=== PATIENT | female | born 1930 | race Caucasian/White ===

== ENCOUNTER → 2016-10-18 | Outpatient (CLI) | payer MEDICARE, OTHER ==
[~2016-10-18] MED LIST: ASPI81TA28 PO; ATV/1 PO; CALC-388 PO; CHOL100027 PO; EFFSR75 PO; EPP3/2 IM; LOSA1TAB PO; MULT-506 PO; OMEG10007 PO
--- NOTE | 2016-10-18 14:53 | MAMMOGRAPHY REPORT ---
UNILATERAL RIGHT DIGITAL SCREENING MAMMOGRAM TOMOSYNTHESIS WITH CAD: 10/18/2016 CLINICAL HISTORY: Asymptomatic. Personal history of breast cancer. TECHNIQUE: Right breast tomosynthesis in addition to standard 2D mammography was performed. Current jose eduardo horta was also evaluated with a Computer Aided Detection (CAD) system. COMPARISON: Comparison is made to exams dated: 10/15/2015 mammogram, 10/13/2014 mammogram, 10/09/2013 m ammogram, 10/08/2012 mammogram, 10/06/2011 mammogram, and 10/05/2010 mammogram - [facility] BREAST COMPOSITION: The tissue of the right breast is heterogeneously dense, which may obscure small masses. FINDINGS: A linear scar marker overlies the lateral right breast. There are moderate vascular calcif ications and scattered benign-appearing microcalcifications. No suspicious mass, unexpected focal a rchitectural distortion or cluster of suspicious microcalcifications is seen. IMPRESSION: ACR BI-RADS CATEGORY 1: NEGATIVE There is no mammographic evidence of malignancy. A 1 year screening mammogram is recommended. The pa tient will receive written notification of the results. Approximately 10% of breast cancers are not detected with mammography. A negative mammographic report should not delay biopsy if a clinically suggestive mass is present. Jaycee Valdivia M.D. ay/:10/18/2016 09:21:45 After School Teacher: Jaz LABOY(R)(M), [facility] letter sent: Normal 1/2 BI-RADS Code: ACR BI-RADS Category 1: Negative
== END | disposition home or self-care (01) ==
LOC: C.MAMM 08:59
PROVIDERS: ATTEND Family Medicine
DX: Z12.31 Encounter for screening mammogram for malignant neoplasm of breast (principal); Z85.3 Personal history of malignant neoplasm of breast

== ENCOUNTER → 2016-11-15 | Outpatient (CLI) | payer MEDICARE ==
--- NOTE | 2016-11-15 13:27 | DIAGNOSTIC IMAGING REPORT ---
VIDEO SWALLOW HISTORY: Aspiration sensation R13.10 TECHNIQUE: Video fluoroscopic evaluation of swallowing was performed in the AP and lateral projections by the speech pathology staff. The patient is fed nectar-thick and thin liquid barium, a barium coated wafer, and barium pudding. FLUOROSCOPY TIME: 1.7 minutes. NUMBER OF FLUOROSCOPY IMAGES: COMPARISON STUDY: None. FINDINGS: There is normal hyoid excursion and epiglottic deflection. No significant penetration or aspiration identified. Swallowing function is within normal limits. Degenerative changes are present within the cervical spine. IMPRESSION: 1. No aspiration identified. 2. Please see the speech pathologist report for detailed findings and recommendations. Electronically signed by: Boby Velasquez M.D. 11/15/2016 1:26 PM Dictated Date/Time: 11/15/2016 1:24 PM
--- NOTE | 2016-11-16 15:23 | SWALLOWING EVALUATION ---
REFERRING SPEECH PATHOLOGIST: n/a HISTORY: This 86 year-old female was referred for a VFSS at [facility] in order to rule out aspiration and address c/o occasional solid food dysphagia resulting in severe coughing spells. The patient has a PMH significant for depression, anxiety, prolapsed bladder, breast CA s/p mastectomy, osteoarthritis and osteoporosis. She denies h/o GERD, but has c/o dysphonia, frequent throat-clearing and excessive mucous production. Currently the patient's diet level is regular. She reports a recent unintentional weight loss of 5# and that her PCP is concerned about her low weight. PROCEDURE: The patient was seen in the Radiology Department of [facility] for the VFSS. Cursory examination of the oral cavity revealed adequate dentition. Movement of the articulators was WNL. The patient was seated on a stool and was viewed in both the Anterior-Posterior (A-P) and Lateral planes. Volitional phonation exercises completed in the A-P plane revealed bilateral vocal fold movement and vocal intensity within functional limits. In the lateral plane, the patient was given the following boluses: 1 tsp. thin liquid barium x 2, single swallow thin liquid barium self-presented from a cup, sequential swallows of thin liquid barium self-presented from a cup, 1 tsp. nectar-thick liquid barium, single swallow nectar-thick liquid barium self-presented from a cup, 1 tsp. barium pudding, and 1 club cracker with barium pudding. The patient was then repositioned into the A-P plane and given 1 tsp. barium pudding. RESULTS: Oral Stage: Labial seal, lingual control, bolus preparation and bolus transport were complete. Trace residue lined oral structures after the swallow. The pharyngeal swallow was initiated when the bolus head was at the posterior angle of the ramus. The oral stage of the swallow was WNL. Pharyngeal Stage: Soft palate elevation, laryngeal elevation, hyoid excursion, laryngeal vestibular closure, and pharyngeal contraction were complete. Pharyngeal stripping wave was diminished. There was partial distention and duration of PES opening d/t cricopharyngeal impression on the esophageal lumen and the presence of osteophytes making impression on the cervical esophagus. There was no obstruction of bolus flow. Tongue base retraction was complete. There was trace pharyngeal residue after the swallow that cleared with a dry swallow produced independently by the patient. There was no penetration or aspiration during the study. There was evidence of dense calcifications with a grape-like appearance at the level of the pyriform sinuses. The sinuses did not fill with barium during the study as would be expected. The radiologist (Dr. Elizabeth) was consulted and he believed it to be thyroid calcifications and stated that was also evident in the AP plane bilaterally. Esophageal Stage: A pudding bolus transited the esophagus without impedance. SUMMARY/RECOMMENDATIONS: This patient presents with normal oral-pharyngeal swallow function. The following is recommended: 1. Regular as tolerated 2. Consider f/u with otolaryngology re: dysphonia, throat-clearing, and possible dense thyroid calcifications; r/o LPR A summary of the results and recommendations was discussed with the patient immediately following the study. She verbalized understanding and is anticipating f/u with the referring physician. Thank you for referral of this patient. Please contact me at if any additional information is needed.
== END | disposition home or self-care (01) ==
LOC: C.RAD 10:53
PROVIDERS: ATTEND Family Medicine
DX: R13.10 Dysphagia, unspecified (principal)

== ENCOUNTER → 2017-03-17 | Outpatient (CLI) | payer MEDICARE ==
[~2017-03-17] MED LIST changes: +OPTIRAY 320 IV PRN
[2017-03-17 11:41] LABS: BLOOD UREA NITROGEN 18 mg/dl (7-18); CREATININE 0.56 mg/dl (0.60-1.20)
--- NOTE | 2017-03-17 11:53 | DIAGNOSTIC IMAGING REPORT ---
L VENOUS DOPP LOWER EXT UNILAT CLINICAL HISTORY: R60.0 pain. Edema. TECHNIQUE: Venous Doppler COMPARISON STUDY: None FINDINGS: Normal study IMPRESSION: Normal venous Doppler left leg. The above report was generated using voice recognition software. It may contain grammatical, syntax or spelling errors. Electronically signed by: Bear Mackay M.D. 03/17/2017 11:52 AM Dictated Date/Time: 03/17/2017 11:52 AM
--- NOTE | 2017-03-17 12:25 | DIAGNOSTIC IMAGING REPORT ---
CT ANGIOGRAM OF THE CHEST CLINICAL HISTORY: Dyspnea on exertion. Shortness of breath. COMPARISON STUDY: Chest x-ray dated 05/30/2012 TECHNIQUE: Following the IV administration of 89 mL of Optiray-320, CT angiogram of the thorax was performed from the thoracic inlet to the lung bases utilizing the pulmonary embolus protocol. Images are reviewed in the axial, sagittal, and coronal planes. IV contrast was administered without complication. MIP imaging was performed. A dose lowering technique was utilized adhering to the principles of ALARA. CT DOSE: 214.90 mGy.cm FINDINGS: No pathologically enlarged axillary mediastinal or hilar lymph nodes were visualized. There was no evidence of thoracic aortic dilatation. There were no pulmonary artery filling defects to indicate acute pulmonary embolism. No pleural effusions are visualized. There are mild dependent atelectatic changes. There are few scattered calcified granulomas present.. There is a mixed solid and groundglass right upper lobe pulmonary opacity measuring 25 mm in diameter. IMPRESSION: 1. No evidence of acute pulmonary embolism 2. Mixed solid and groundglass right upper lobe 25 mm opacity. This could either be inflammatory or neoplastic. Pulmonary referral, and/or short-term CT follow-up subsequent antibiotic therapy is recommended. Electronically signed by: Boby Velasquez M.D. 03/17/2017 12:24 PM Dictated Date/Time: 03/17/2017 12:18 PM
== END | disposition home or self-care (01) ==
LOC: C.ULTR 10:42
PROVIDERS: ATTEND Family Medicine
DX: R06.09 Other forms of dyspnea (principal); R60.0 Localized edema; R91.8 Other nonspecific abnormal finding of lung field

== ENCOUNTER → 2017-04-20 | Outpatient (CLI) | payer MEDICARE ==
[~2017-04-20] MED LIST changes: -OPTIRAY 320 IV PRN
--- NOTE | 2017-04-20 10:44 | DIAGNOSTIC IMAGING REPORT ---
(CHEST) THORAX WITHOUT CT DOSE: 258.63 mGy.cm HISTORY: Lung nodule ABNORMAL CHEST CT FROM 03/16 TECHNIQUE: Multiaxial CT images of the chest were performed without contrast. A dose lowering technique was utilized adhering to the principles of ALARA. COMPARISON: 03/17/2017 FINDINGS: Patient continues to have a 2.5 cm groundglass nodule right upper lung. In addition, there is a 6 mm groundglass nodule right lower lobe transaxial image 149. This is identified on the prior study and does not represent an interval finding. There is a nodular density right posterior costophrenic angle associated with mild atelectatic change. This is similar. Left lung is generally clear. There are several small mediastinal nodes unchanged from the prior study. No bulky adenopathy is appreciated. IMPRESSION: 1. Several groundglass nodular densities of the right lung which are identified and are unchanged compared to the prior exam. 2. Given the lack of interval change, pulmonary consult or PET/CT of the chest is suggested. The above report was generated using voice recognition software. It may contain grammatical, syntax or spelling errors. Electronically signed by: Bear Mackay M.D. 04/20/2017 10:42 AM Dictated Date/Time: 04/20/2017 10:33 AM
== END | disposition home or self-care (01) ==
LOC: C.CTS 10:05
PROVIDERS: ATTEND Family Medicine
DX: R93.8 Abnormal findings on diagnostic imaging of other specified body structures (principal)

== ENCOUNTER → 2017-09-28 | Outpatient (CLI) | payer MEDICARE ==
--- NOTE | 2017-09-28 09:46 | DIAGNOSTIC IMAGING REPORT ---
(CHEST) THORAX WITHOUT CT DOSE: 195.63 mGycm HISTORY: Dyspnea PULMONARY NODULES TECHNIQUE: Multiaxial CT images of the chest were performed without contrast. A dose lowering technique was utilized adhering to the principles of ALARA. COMPARISON: 04/20/2017 FINDINGS: No change compared to the prior study. The groundglass densities of the right hemithorax are unchanged. There is no significant mediastinal or hilar adenopathy within limitations of an unenhanced scan. Stable atherosclerotic change and ectasia thoracic aorta. No focal infiltrative process. Limited evaluation the upper abdomen is unremarkable. IMPRESSION: 1. Several groundglass nodular densities right hemithorax unchanged. 2. Main this study is unremarkable post left mastectomy. The above report was generated using voice recognition software. It may contain grammatical, syntax or spelling errors. Electronically signed by: Bear Mackay M.D. 09/28/2017 9:45 AM Dictated Date/Time: 09/28/2017 9:35 AM
== END | disposition home or self-care (01) ==
LOC: C.CTS 09:18
PROVIDERS: ATTEND Physician Assistant
DX: R91.8 Other nonspecific abnormal finding of lung field (principal)

== ENCOUNTER → 2017-10-19 | Outpatient (CLI) | payer MEDICARE ==
--- NOTE | 2017-10-19 15:09 | MAMMOGRAPHY REPORT ---
UNILATERAL RIGHT DIGITAL SCREENING MAMMOGRAM TOMOSYNTHESIS WITH CAD: 10/19/2017 CLINICAL HISTORY: Asymptomatic. Personal history of breast cancer. TECHNIQUE: Breast tomosynthesis in addition to standard 2D mammography was performed. Current study w as also evaluated with a Computer Aided Detection (CAD) system. COMPARISON: Comparison is made to exams dated: 10/18/2016 mammogram, 10/15/2015 mammogram, 10/13/2014 m ammogram, 10/09/2013 mammogram, 10/08/2012 mammogram, and 10/06/2011 mammogram - [facility]. BREAST COMPOSITION: The tissue of right breast is heterogeneously dense, which may obscure small mass es. FINDINGS: There are no suspicious masses, calcifications, or areas of architectural distortion noted in the rig ht breast. There has been no significant interval change compared to prior exams. Scattered benign- appearing calcifications are stable. A linear scar marker overlies the right lateral breast. IMPRESSION: ACR BI-RADS CATEGORY 2: BENIGN There is no mammographic evidence of malignancy. A 1 year screening mammogram is recommended.( 019) The patient will receive written notification of the results. Some breast cancers are not detected with mammography. A negative mammographic report should not waylon y biopsy if a clinically suggestive mass is present. Louisa Lloyd M.D. /:10/19/2017 12:25:34 Ultrasound Technician: RT Danitza(Ariella)(Deedee), [facility] letter sent: Normal 1/2 BI-RADS Code: ACR BI-RADS Category 2: Benign
== END | disposition home or self-care (01) ==
LOC: C.MAMM 08:54
PROVIDERS: ATTEND Family Medicine
DX: Z12.31 Encounter for screening mammogram for malignant neoplasm of breast (principal)

== ENCOUNTER 2021-04-30 09:29 | Inpatient (IN) ==
[2021-04-30 10:30] LABS: Basophils # (auto) 0.02 K/uL (0-0.2); Basophils % (auto) 0.5 %; Eosinophils # (auto) 0.07 K/uL (0-0.5); Eosinophils % (auto) 1.8 %; Hematocrit (blood only) 35.8 % (37-47); Hemoglobin 12.2 g/dL (12.0-16.0); Immature Granulocytes # (auto) 0.01 K/uL (0.00-0.02); Immature Granulocytes % (auto) 0.3 %; Lymphocytes # (auto) 0.93 K/uL (1.2-3.4); Lymphocytes % (auto) 23.3 %; Mean Corpuscular Hemoglobin 30.1 pg (25-34); Mean Corpuscular Hgb Conc 34.1 g/dL (32-36); Mean Corpuscular Volume 88.4 fL (80-100); Mean Platelet Volume 10.3 fL (7.4-10.4); Monocytes # (auto) 0.46 K/uL (0.11-0.59); Monocytes % (auto) 11.5 %; Neutrophils # (auto) 2.51 K/uL (1.4-6.5); Neutrophils % (auto) 62.6 %; Platelet Count 206 K/uL (130-400); RDW Coefficient of Variation 14.3 % (11.5-14.5); RDW Standard Deviation 46.5 fL (36.4-46.3); Red Blood Count 4.05 M/uL (4.2-5.4)
[2021-04-30 10:39] LABS: INR 1.1 (0.9-1.1); Prothrombin Time 11.4 Seconds (9.0-12.0)
--- NOTE | 2021-04-30 10:47 | CT Scan Report ---
CT OF THE HEAD WITHOUT CONTRAST CLINICAL HISTORY: Altered mental status. COMPARISON STUDY: Head CT September 08, 2020. CT DOSE: 537.48 mGy.cm TECHNIQUE: Helical axial images of the head were obtained without IV contrast. Automated exposure con trol was utilized for the study. A dose lowering technique was utilized adhering to the principles o f ALARA. FINDINGS: There is a small 4 mm hyperdense focus within the left parietal lobe on axial image 19 of 2 8. This is of questionable significance. Ventricular system is unremarkable. Basal cisterns are paten t. There are no extra axial collections. White matter hypodensity suggests small vessel disease. Ther e is a 1 cm hypodensity within left basal ganglia on axial image 14 of 20 which is new since prior ex am. There may be an additional old left basal ganglia infarct. There are no significant calvarial abn ormalities. Visualized portions of the sinuses and mastoid air cells are clear. IMPRESSION: 1. Small 4 mm hyperdense focus within the left parietal lobe. This is most likely artifactual however a punctate focus of hemorrhage cannot be completely excluded. 2. 1 cm hypodensity within left basal ganglia. This suggests an age indeterminate infarct, new since CT of September 08, 2020. ACT 112: Negative or not required by law. Electronically signed by: Kemal Elizabeth M.D. 04/30/2021 10:46 AM
[2021-04-30 10:49] LABS: Appearance Urine Clear (Clear); Bacteria Urine Automated 2+ (Negative); Bilirubin Urine Negative (Negative); Blood Urine Negative (Negative); Color Urine Yellow; Glucose Urine UA Negative (Negative); Ketones Urine Negative (Negative); Leukocyte Esterase Urine Negative (Negative); Nitrite Urine Positive (Negative); Protein Urine Negative (Negative); RBC Urine Automated 0-4 /hpf (0-4); Urobilinogen Urine Negative (Negative)
[2021-04-30 10:53] LABS: Alanine Aminotransferase 11 U/L (7-52); Albumin Globulin Ratio 1.9 (0.9-2); Albumin Level 3.9 gm/dl (3.4-5.0); Alkaline Phosphatase 42 U/L (34-104); Anion Gap 4 (3-11); Aspartate Aminotransferase 20 U/L (13-39); BUN Creatinine Ratio 27.9 (10-20); Bilirubin,Total 0.6 mg/dl (0.2-1.0); Blood Urea Nitrogen 17 mg/dl (6-23); Calcium 8.8 mg/dl (8.5-10.1); Carbon Dioxide 29 mmol/L (21-32); Chloride 97 mmol/L (98-107); Est GFR (African American) 93.8 ml/min; Est GFR (Non-African American) 80.9 ml/min; Globulin 2.1 gm/dl (2.5-4.0); Glucose 80 mg/dl (70-99(Fasting)); Lipase 37 U/L (11-82); Magnesium 1.9 mg/dl (1.7-2.4); Phosphorus 3.3 mg/dl (2.5-4.9); Sodium 130 mmol/L (136-145); Troponin I 0.03 ng/ml (0-0.04)
--- NOTE | 2021-04-30 10:58 | XRay Report ---
XR chest 1V portable CLINICAL HISTORY: Atypical chest pain TECHNIQUE: Single frontal radiograph of the chest was obtained. Comparison: Comparison is made to chest one view 07/19/2008 FINDINGS: No lines and tubes are seen. Calcified aortic knob is seen. Opacities are seen at the right greater t phillips left upper lungs. No evidence of pleural effusion or pneumothorax. IMPRESSION: Right greater than left upper lung opacity may represent atelectasis or scarring, less likely aspirat ion or pneumonia. ACT 112: Negative or not required by law. Electronically signed by: Rodríguez Villalta M.D. 04/30/2021 10:57 AM
[2021-04-30 11:32] LABS: Amphetamines+Metham, Urine Neg (Neg); Barbiturates, Urine Neg (Neg); Benzodiazepine, Urine Neg (Neg); Cocaine, Urine Neg (Neg); MDMA (Ecstacy), Urine Neg (Neg); Methadone, Urine Neg (Neg); Opiate, Urine Neg (Neg); Phencyclidine, Urine Neg (Neg)
--- NOTE | 2021-04-30 14:16 | CT Scan Report ---
CT head/brain wo con at 1:54 PM CLINICAL HISTORY: f/u ? bleed COMPARISON STUDY: 04/30/2021 at 10:[address] DOSE: 1151.75 mGy.cm TECHNIQUE: Standard CT of the Brain was performed without IV contrast. A dose lowering technique was utilized adhering to the principles of ALARA. FINDINGS: Compared to the previous examination, a very small hyperdense focus is again seen within the left par ietal lobe measuring 3 mm on the current study and essentially unchanged. The persistence of this fin ding does suggest a very small punctate hemorrhage. No other evidence suggestive of hemorrhage is see n. 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 There is mild cerebral cortica l atrophy and decreased attenuation in the periventricular white matter representing remote small ves angelina disease. The remainder of the study is unchanged. IMPRESSION: 1. Compared to the previous examination, there is a persistent small focus of hyperdensity within the left parietal lobe. Its persistence is suspicious for a small punctate hemorrhage rather than artifa ct. No other evidence for hemorrhage is seen. 2. 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 ACT 112: Negative or not required by law. Electronically signed by: Josse Dior M.D. 04/30/2021 2:15 PM
[2021-04-30] MEDS: SODIUM CHLORIDE 0.9% 1000ML 1,000 ML IV SCH (15:54)
--- NOTE | 2021-04-30 16:04 | History & Physical Report ---
Date of Service April 30, 2021 Assessment & Plan (1) Intentional overdose: Plan: Intentional drug overdose Suicidal attempt Suspected to have consumed about 40 tablets of Lorazepam Drug Screen negative: Likely falsely negative secondary to poor cross-reactivity of lorazepam with Assay Contacted poison control Poison control recommends conservative management No antibiotic needed given use of benzodiazepines for many years Started on IV fluids Supplemental oxygen as needed One-on-one observation Psychiatry consulted NPO for now Obtain ABG Hyponatremia Likely secondary to poor oral intake Sodium 130 Start on IV fluids Monitor sodium levels Suspected UTI Start on Rocephin Urine culture pending Suspected Intracranial hemorrhage Age-indeterminate lacunar infarct of the basal ganglia -CT head showed small focus of hyperdensity within the left parietal lobe suspicious for small punctate hemorrhage. Also noted Lackner infarct in the basal ganglia on the left. --Patient's son, granddaughter believed that patient with not want any invasive intervention and would not want to be transferred to tertiary care center Family also confirmed that patient would wanted to be DNR even prior to recent events Family agrees with conservative management for now Neurology consulted Neurochecks requested Hold aspirin Avoid anticoagulants Will not give ER physician discussed with neurologist on-call at [facility] Dr. Almendarez who believes that CT head findings are incidental and would not explain the degree of somnolence. Also recommended no intervention warranted currently. Fall precautions PT/OT when appropriate Anxiety Depression Hold oral medications for now Psychiatry consulted H/O breast cancer S/P mastectomy H/O adenocarcinoma of lung Radiation pneumonitis as per records H/O PE Asthma/COPD Resume home medications as able DVT Px: SCDs Code Status DNI/DNR History of Present Illness Chief Complaint: Intentional Overdose Primary Care Provider: Bear Rodriguez MD Patient is an 89-year-old female with history of anxiety, depression, dyslipidemia, rosacea, H/O breast cancer S/P left mastectomy, H/O PE currently not on any anticoagulation, asthma, GERD, lumbar spinal stenosis, neuropathy, Adenocarcinoma of lung, Radiation Pneumonitis and other medical problems was brought in by family for evaluation of a suspected suicidal attempt. Patient currently is somnolent and is unable to provide any history. Most of the history is obtained from patient's son at bedside, ER physician and old records. Patient lives by herself and her family lives near by her. Patient was found unconscious by family and thought to have consumed about 40 tablets of lorazepam in an attempt to commit suicide. Patient's Son informs that, she has been depressed since she lost her 2 months ago. She visited her PCP 2 days ago and expressed that she has not been able to cry and was not sure if she grieved. She has some degree of anxiety and has been on lorazepam 1 mg twice a day for many years. She also takes venlafaxine 75 mg daily. She reported having poor sleep and has not been able to do anything with her friends lately. Patient son informed that she attempted a suicidal attempt in the past as well. Patient is somnolent but awakes to painful stimulus and opens eyes. She was hypoxic in 80s and was placed on 2 L supplemental oxygen while in ED. Son believes that she took lorazepam about 1:30 AM this morning. She also wrote a letter stating that she can could not take it anymore. Allergies Allergy/AdvReac Type Severity Reaction Status Date / Time bee venom protein (honey bee) Allergy Severe ANAPHYLAXIS Verified 10/01/20 10:40 Home Medications Medication Instructions Recorded Confirmed Type calcium polycarbophil 625 mg 1,250 mg PO DAILY 03/07/18 04/30/21 History tablet (Fiber Laxative (calcium polycarbophil)) lorazepam 1 mg tablet 1 mg PO BID 03/07/18 04/30/21 History losartan 25 mg tablet 25 mg PO QAM 03/07/18 04/30/21 History venlafaxine 75 mg capsule,extended 75 mg PO BID 03/07/18 04/30/21 History release 24 hr (Effexor XR) metronidazole 1 % topical gel 1 applic TOP DAILY 05/22/19 04/30/21 History umeclidinium 62.5 mcg-vilanterol 1 inh INHALATION DAILY #60 ea 09/01/20 04/30/21 Rx 25 mcg/actuation powdr for inhalation (Anoro Ellipta) aspirin 81 mg tablet,delayed 81 mg PO DAILY 04/30/21 04/30/21 History release calcium carbonate 600 mg-vitamin 1 tab PO UD 04/30/21 04/30/21 History D3 5 mcg (200 unit) tablet (Calcium 600 + D(3)) fluticasone propionate 50 1 spray INTRANASAL Q12H 04/30/21 04/30/21 History mcg/actuation nasal spray,suspension loratadine 10 mg tablet 10 mg PO DAILY 04/30/21 04/30/21 History melatonin 5 mg tablet 5 mg PO HS 04/30/21 04/30/21 History montelukast 10 mg tablet 10 mg PO HS 04/30/21 04/30/21 History omega [id number]-nkx-ebj-fish oil 1,000 mg 1 cap PO BID 04/30/21 04/30/21 History (120 mg-180 mg) capsule (Fish Oil) omeprazole 20 mg capsule,delayed 20 mg PO DAILY 04/30/21 04/30/21 History release tiotropium 2.5 mcg-olodaterol 2.5 2 puff INHALATION QAM 04/30/21 04/30/21 History mcg/actuation mist for inhalation (Stiolto Respimat) triamcinolone acetonide 0.1 % 1 applic TOPICAL BID 04/30/21 04/30/21 History topical cream Past Med/Surg History Medical History Abnormal CT of the chest Anxiety Asthma USING RESCUE INHALER FREQUENTLY/DAILY Asthma-COPD overlap syndrome Cancer BREAST CANCER-LEFT MASTECTOMY Chronic obstructive pulmonary disease Deep vein thrombosis 15 YEARS AGO S/P LEG SURGERY Dysphagia HX ESOPHAGEAL STRETCHING GERD (gastroesophageal reflux disease) History of pulmonary embolism Hypertension Osteoarthritis Prolapsed bladder Pulmonary nodule, right Rectal bleeding Surgical History History of cataract surgery RT/LEFT History of colonoscopy History of esophagogastroduodenoscopy (EGD) History of mastectomy LEFT (NO BP/LAB DRAWS) History of tonsillectomy History of tooth extraction History of total hysterectomy with bilateral salpingo-oophorectomy (BSO) History of total knee replacement LEFT/RT Family History Other No family history of adverse response to anesthesia Social History Smoking Status: Never smoker Second Hand Exposure: Yes; Hx Alcohol Use: No Hx Substance Use: No Preferred Language: Bol[place]ian Communication Ability: Effective Senior Care Specialist Required: No Beliefs That Will Affect Care: None Current Living Situation: Spouse Feels Safe at Home: Yes Childhood Exposure to Second-Hand Smoke: Yes Dental Care, Regularly: Yes Assistive Devices: Glasses and Hearing Aid - Bilateral Review of Systems Review of Systems: Unobtainable due to reduced consciousness Physical Exam Physical Exam: Physical Exam: Vitals signs as noted above General Appearance:Moderately built and nourished, no apparent distress Head: normocephalic, Atraumatic Eyes: normal inspection Neck: supple, Trachea midline Respiratory/Chest: Normal breath sounds, CTA, No accessory muscle use, S/P Left mastectomy Cardiovascular: S1, S2, No murmur Abdomen/GI:Soft, Non tender, Bowel sounds present Extremities/Musculoskeletal:normal inspection, no edema Neurologic/Psych: Somnolent, unable to perform complete neurological exam. Skin: normal color, warm Results & Data Results & Data ([facility]) Vital Signs (Past 12 Hours) Vital Signs Temp Pulse Pulse Resp BP BP Pulse Ox 04/30/21 15:00 82 16 113/64 95 04/30/21 14:30 80 18 140/77 92 04/30/21 13:30 81 15 142/66 H 96 04/30/21 13:00 74 13 133/64 98 04/30/21 12:30 78 12 139/80 98 04/30/21 12:00 76 17 120/75 95 04/30/21 11:31 75 12 137/73 100 04/30/21 11:00 77 12 146/105 H 100 04/30/21 10:04 36.5 C 83 20 123/83 98 04/30/21 10:00 77 17 138/80 100 04/30/21 09:59 71 16 94 Laboratory Results Short CBC 04/30/21 Range/Units 10:15 WBC 4.00 L (4.8-10.8) K/uL Hgb 12.2 (12.0-16.0) g/dL Hct 35.8 L (37-47) % Plt Count 206 (130-400) K/uL BMP 04/30/21 10:15 Sodium 130 L Potassium 4.0 Chloride 97 L Carbon Dioxide 29 BUN 17 Creatinine 0.61 Glucose 80 Calcium 8.8 Cardiac Enzymes 04/30/21 Range/Units 10:15 Troponin I 0.03 (0-0.04) ng/ml Liver Function 04/30/21 Range/Units 10:15 Total Bilirubin 0.6 (0.2-1.0) mg/dl AST 20 (13-39) U/L ALT 11 (7-52) U/L Alkaline Phosphatase 42 (34-104) U/L Albumin 3.9 (3.4-5.0) gm/dl Urine 04/30/21 Range/Units 10:20 Urine Color Yellow Urine Appearance Clear (Clear) Urine pH 7.0 (4.5-7.5) Ur Specific [place] 1.010 (1.000-1.030) Urine Protein Negative (Negative) Urine Glucose (UA) Negative (Negative) Diagnostic Findings --CT Head:Small 4 mm hyperdense focus within the left parietal lobe. This is most likely artifactual however a punctate focus of hemorrhage cannot be completely excluded. 1 cm hypodensity within left basal ganglia. This suggests an age indeterminate infarct, new since CT of September 08, 2020. --CXR:Right greater than left upper lung opacity may represent atelectasis or scarring, less likely aspiration or pneumonia. --Repeat CT Head:Compared to the previous examination, there is a persistent small focus of hyperdensity within the left parietal lobe. Its persistence is suspicious for a small punctate hemorrhage rather than artifact. No other evidence for hemorrhage is seen. 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 ECG Additional Comments: EKG: Normal sinus rhythm, nonspecific ST changes, QTC 446.
--- NOTE | 2021-04-30 16:49 | Emergency Department Note ---
Impression & Plan Intentional overdose, Suicide attempt, Abnormal CT scan of head, Somnolence ED Provider Note NAME: NALLELY NOBLE AGE: 89 SEX: F ARRIVES VIA: Ambulance INFORMANT: EMS, Son ED PROVIDER(S): Jani Pinedo MD CHIEF COMPLAINT: Intentional overdose. PLAN: Disposition: Admit MEDICAL DECISION MAKING: The patient is an 89-year-old woman with a past medical history of asthma, COPD lung adenocarcinoma who presents emergency department from home after she was found unresponsive by family with suspicion that she had taken 40 tablets of her Ativan and attempt to kill her self in the setting of no longer wanting to live as her recently per EMS report. Son arrived to the bedside and reports that a note was found with the patient indicated that she no longer wanted to live. Her ativan pill bottle was empty and estimated that a least 40 tablets of her ativan may have been taken. They were able to gather from the patient that she did this around 1am and apparent had dressed herself and made her bed. She was found in the morning by her [id number] who was to take the patient grocery shopping this morning. On arrival the patient is afebrile with stable vital signs. She is somnolent but awakes to painful stimulus, opens eyes and answers with her name when asked. Her GCS is 11. She is hypoxic in the mid 80s but with normal O2 saturation on 2 L nasal cannula. Her respiratory rate is normal. Patient placed on continuous capnography. EKG without overt acute ischemia. CXR with nonspecific findings, likely atelectasis at this time. WBC 4K nonspecific. Hemoglobin and platelets within normal limits. Chemistry without metabolic acidosis. BUN/creatinine> 20 consistent with patient's clinically dry appearance. Electrolytes and LFTs without significant abnormality. Troponin 0.03, within normal limits. Lipase is not elevated. UA with epithelial cells and so will await culture to inform need for treatment. Drug screen was negative however may reflect false negative stable poor cross- reactivity of lorazepam with assay. Covid-19 RNA, NAAT negative. The head demonstrates age indeterminant infarct of the basal ganglia as well as a 4 mm left parietal hypodensity that reflects artifact versus small hemorrhage. A [address] was performed and this area was unchanged and therefore hemorrhage is considered. I did discuss these findings with the patient's son side as well as with the patient's grand daughter who is an ED physician in [place] over the phone. There our discussion they did agree that she would not have wanted any invasive interventions prior to her recent depression and so they feel confident that they would not want the patient transferred to a tertiary care center and acknowledge that if any head bleeding were to worsen that would not want transfer at that point either. They do confirm that the patient would have wanted to be DNR even before the recent events. Regarding intubation they do agree with temporary intubation if indicated for stabilization while awaiting benzodiazepine overdose to metabolize but would not want the patient intubated per if she fails to respond and would not want her intubated if she were to decline for alternate reasons such as ICH. Case was discussed with Angelica ABARCA [facility] who will evaluate the patient for admission. Per admitting team request I also discussed the case with [facility] neurology on-call, Dr. Almendarez. Appreciate recommendations. He does agree that findings on CT head are likely incidental and would not explain the patient's degree of somnolence. Additionally CT findings would not warrant acute intervention. She may follow-up outpatient regarding these findings if this is the patient's/familes interest. Admitting team was updated. Triage Nursing notes reviewed and agree them. Prior medical records reviewed Vital Signs: reviewed and remarkable for hypoxia. Differential diagnosis: Overdose, toxicologic, infection, hypoglycemia, electrolyte abnormalities, cardiac sources, intracerebral event, neurologic, trauma, as well as other pathologies. ER treatment provided: See below. Diagnostics interpreted by me: ECG: NSR, 78 bpm, no ectopy, no overt ST elevation or depression. QTC 446, QRS 96, MT 172. Cardiac Monitoring: An order for continuous cardiac monitoring was placed and demonstrated NSR, 78 bpm, no ectopy. Laboratory studies: See below Imaging studies: See below Consultation(s): Case was discussed with Angelica ABARCA with Dr. Lozano [facility] hospitalist, who will evaluate the patient for admission. [facility] neurology on-call, Dr. Almendarez. HPI: The patient is an 89-year-old woman with a past medical history of asthma, COPD lung adenocarcinoma who presents emergency department from home after she was found unresponsive by family with suspicion that she had taken 40 tablets of her Ativan and attempt to kill her self in the setting of no longer wanting to live as her recently per EMS report. Son arrived to the bedside and reports that a note was found with the patient indicated that she no longer wanted to live. Her ativan pill bottle was empty and estimated that a least 40 tablets of her ativan may have been taken. They were able to gather from the patient that she did this around 1am and apparent had dressed herself and made her bed. She was found in the morning by her [id number]-[id number]-pbo who was to take the patient grocery shopping this morning. ROS: See above HPI for pertinent positives & negatives. A total of 10 systems reviewed and were otherwise negative. VITALS:See Below PHYSICAL EXAMINATION: GENERAL: Somnolent. Alert to mild stimulus and loud voice. GCS 11. In no acute distress. HENT: Normocephalic, atraumatic. Oropharynx unremarkable. EYES: Normal conjunctiva. Sclera non-icteric. NECK: Supple. No nuchal rigidity. FROM. No JVD. RESPIRATORY: Clear to auscultation. CARDIAC: Regular rate, normal rhythm. Extremities warm and well perfused. Pulses equal. ABDOMEN: Soft, non-distended. No tenderness to palpation. No rebound or guarding. No masses. RECTAL: Deferred. MUSCULOSKELETAL: Chest examination reveals no tenderness. The back is symm etrical on inspection without obvious abnormality. There is no CVA tenderness to palpation. No joint edema. LOWER EXTREMITIES: Calves are equal size bilaterally and non-tender. No edema. No discoloration. NEURO: Somnolent. Alert to mild stimulus and loud voice. Says name to request. Mild dysarthria. GCS 11. SKIN: No rash or jaundice noted. ED COURSE: Critical Care: I have personally spent greater than 95 minutes of critical care time in the direct management of this patient. This includes bedside care, interpretation of diagnostic studies, and testing, discussion with consultants, patient, and family members, and other required patient management activities. This 95 minutes is in excess of all separately billable procedures. Jani Pinedo MD Past Med/Surg History Medical History Abnormal CT of the chest Anxiety Asthma USING RESCUE INHALER FREQUENTLY/DAILY Asthma-COPD overlap syndrome Cancer BREAST CANCER-LEFT MASTECTOMY Chronic obstructive pulmonary disease Deep vein thrombosis 15 YEARS AGO S/P LEG SURGERY Dysphagia HX ESOPHAGEAL STRETCHING GERD (gastroesophageal reflux disease) History of pulmonary embolism Hypertension Osteoarthritis Prolapsed bladder Pulmonary nodule, right Rectal bleeding Surgical History History of cataract surgery RT/LEFT History of colonoscopy History of esophagogastroduodenoscopy (EGD) History of mastectomy LEFT (NO BP/LAB DRAWS) History of tonsillectomy History of tooth extraction History of total hysterectomy with bilateral salpingo-oophorectomy (BSO) History of total knee replacement LEFT/RT Family History Other No family history of adverse response to anesthesia Social History Smoking Status: Never smoker Second Hand Exposure: No; Do You Dip or Chew Tobacco: No; Tobacco Cessation Education Requested by Patient: No Hx Alcohol Use: No Hx Substance Use: No Preferred Language: Venezuelan Communication Ability: Effective Loom Inspector Required: No Beliefs That Will Affect Care: None Current Living Situation: Alone Other Information That Helps Us Care for You: No Feels Safe at Home: Yes Safety Concerns: Feels Safe At This Time Childhood Exposure to Second-Hand Smoke: Yes Dental Care, Regularly: Yes Assistive Devices: Glasses and Hearing Aid - Bilateral Assistive Devices Comment: did not5 bring hearing aids with her Allergies Allergies Allergy/AdvReac Type Severity Reaction Status Date / Time bee venom protein (honey bee) Allergy Severe ANAPHYLAXIS Verified 10/01/20 10:40 Home Meds Home Medications Medication Instructions Recorded Confirmed calcium polycarbophil 625 mg 1,250 mg PO DAILY 03/07/18 04/30/21 tablet (Fiber Laxative (calcium polycarbophil)) lorazepam 1 mg tablet 1 mg PO BID 03/07/18 04/30/21 losartan 25 mg tablet 25 mg PO QAM 03/07/18 04/30/21 venlafaxine 75 mg capsule,extended 75 mg PO BID 03/07/18 04/30/21 release 24 hr (Effexor XR) metronidazole 1 % topical gel 1 applic TOP DAILY 05/22/19 04/30/21 aspirin 81 mg tablet,delayed 81 mg PO DAILY 04/30/21 04/30/21 release calcium carbonate 600 mg-vitamin 1 tab PO UD 04/30/21 04/30/21 D3 5 mcg (200 unit) tablet (Calcium 600 + D(3)) fluticasone propionate 50 1 spray INTRANASAL Q12H 04/30/21 04/30/21 mcg/actuation nasal spray,suspension loratadine 10 mg tablet 10 mg PO DAILY 04/30/21 04/30/21 melatonin 5 mg tablet 5 mg PO HS 04/30/21 04/30/21 montelukast 10 mg tablet 10 mg PO HS 04/30/21 04/30/21 omega 3-ezp-yia-fish oil 1,000 mg 1 cap PO BID 04/30/21 04/30/21 (120 mg-180 mg) capsule (Fish Oil) omeprazole 20 mg capsule,delayed 20 mg PO DAILY 04/30/21 04/30/21 release tiotropium 2.5 mcg-olodaterol 2.5 2 puff INHALATION QAM 04/30/21 04/30/21 mcg/actuation mist for inhalation (Stiolto Respimat) triamcinolone acetonide 0.1 % 1 applic TOPICAL BID 04/30/21 04/30/21 topical cream Previous Rx's Medication Instructions Recorded umeclidinium 62.5 mcg-vilanterol 1 inh INHALATION DAILY #60 ea 09/01/20 25 mcg/actuation powdr for inhalation (Anoro Ellipta) Results & Data (ED) Vital Signs Vital Signs - 24 hr 04/30/21 09:59 04/30/21 10:00 04/30/21 10:04 Temperature 36.5 C Temperature Source Oral Pulse Rate 71 77 83 Pulse Rate [Right Finger] Pulse Rate from SpO2 Sensor 77 Pulse Rhythm Regular Regular Pulse Rhythm [Right Finger] Pulse Strength Normal Pulse Strength [Right Finger] Respiratory Rate 16 17 20 Respiratory Effort / Characteristics Non-Labored Spontaneous Respiratory Depth Normal Respiratory Pattern Regular Blood Pressure 138/80 123/83 Blood Pressure [Right Arm] Blood Pressure Mean 99 96 Blood Pressure Mean [Right Arm] Blood Pressure Position Sitting Pulse Oximetry 94 100 98 Oxygen Delivery Method Room Air Room Air Oxygen Flow Rate Sepsis Recent Fever Within 48 Hours No Sepsis New/Unexplained Change in Mental Status N/A Sepsis Action Taken by Nursing No Action Required End-Tidal CO2 04/30/21 11:00 04/30/21 11:31 04/30/21 12:00 Temperature Temperature Source Pulse Rate 77 75 76 Pulse Rate [Right Finger] Pulse Rate from SpO2 Sensor 76 76 76 Pulse Rhythm Pulse Rhythm [Right Finger] Pulse Strength Pulse Strength [Right Finger] Respiratory Rate 12 12 17 Respiratory Effort / Characteristics Respiratory Depth Respiratory Pattern Blood Pressure 146/105 H 137/73 120/75 Blood Pressure [Right Arm] Blood Pressure Mean 118 94 90 Blood Pressure Mean [Right Arm] Blood Pressure Position Pulse Oximetry 100 100 95 Oxygen Delivery Method Nasal Cannula Room Air Oxygen Flow Rate 3 Sepsis Recent Fever Within 48 Hours Sepsis New/Unexplained Change in Mental Status Sepsis Action Taken by Nursing End-Tidal CO2 5 18 21 04/30/21 12:30 04/30/21 13:00 04/30/21 13:30 Temperature Temperature Source Pulse Rate 78 74 81 Pulse Rate [Right Finger] Pulse Rate from SpO2 Sensor 78 75 81 Pulse Rhythm Pulse Rhythm [Right Finger] Pulse Strength Pulse Strength [Right Finger] Respiratory Rate 12 13 15 Respiratory Effort / Characteristics Respiratory Depth Respiratory Pattern Blood Pressure 139/80 133/64 142/66 H Blood Pressure [Right Arm] Blood Pressure Mean 99 87 91 Blood Pressure Mean [Right Arm] Blood Pressure Position Pulse Oximetry 98 98 96 Oxygen Delivery Method Room Air Oxygen Flow Rate Sepsis Recent Fever Within 48 Hours Sepsis New/Unexplained Change in Mental Status Sepsis Action Taken by Nursing End-Tidal CO2 20 30 35 04/30/21 14:30 04/30/21 15:00 Temperature Temperature Source Pulse Rate 80 Pulse Rate [Right Finger] 82 Pulse Rate from SpO2 Sensor 80 Pulse Rhythm Pulse Rhythm [Right Finger] Regular Pulse Strength Pulse Strength [Right Finger] Normal Respiratory Rate 18 16 Respiratory Effort / Characteristics Non-Labored Respiratory Depth Normal Respiratory Pattern Regular Blood Pressure 140/77 Blood Pressure [Right Arm] 113/64 Blood Pressure Mean 98 Blood Pressure Mean [Right Arm] 80 Blood Pressure Position Pulse Oximetry 92 95 Oxygen Delivery Method Room Air Oxygen Flow Rate Sepsis Recent Fever Within 48 Hours Sepsis New/Unexplained Change in Mental Status Sepsis Action Taken by Nursing End-Tidal CO2 Laboratory Data Attestation: I reviewed the patient's lab results. Result diagrams: 04/30/21 10:15 04/30/21 22:18 Lab Results 04/30/21 04/30/21 04/30/21 Range/Units 10:15 10:15 10:15 WBC 4.00 L (4.8-10.8) K/uL RBC 4.05 L (4.2-5.4) M/uL Hgb 12.2 (12.0-16.0) g/dL Hct 35.8 L (37-47) % MCV 88.4 (80-100) fL MCH 30.1 (25-34) pg MCHC 34.1 (32-36) g/dL RDW Std Deviation 46.5 H (36.4-46.3) fL RDW Coeff of [place] 14.3 (11.5-14.5) % Plt Count 206 (130-400) K/uL MPV 10.3 (7.4-10.4) fL Immature Gran % (Auto) 0.3 % Neut % (Auto) 62.6 % Lymph % (Auto) 23.3 % Dup[place] % (Auto) 11.5 % Eos % (Auto) 1.8 % Baso % (Auto) 0.5 % Neut # (Auto) 2.51 (1.4-6.5) K/uL Lymph # (Auto) 0.93 L (1.2-3.4) K/uL Dupage # (Auto) 0.46 (0.11-0.59) K/uL Eos # (Auto) 0.07 (0-0.5) K/uL Baso # (Auto) 0.02 (0-0.2) K/uL Immature Gran # (Auto) 0.01 (0.00-0.02) K/uL PT 11.4 (9.0-12.0) Seconds INR 1.1 (0.9-1.1) Sodium 130 L (136-145) mmol/L Potassium 4.0 (3.5-5.1) mmol/L Chloride 97 L (98-107) mmol/L Carbon Dioxide 29 (21-32) mmol/L Anion Gap 4 (3-11) BUN 17 (6-23) mg/dl Creatinine 0.61 (0.6-1.2) mg/dl Est Cr Clr Drug Dosing Not Reportable Est GFR ( Amer) 93.8 ml/min Est GFR (Non-Af Amer) 80.9 ml/min BUN/Creatinine Ratio 27.9 H (10-20) Glucose 80 (70-99(Fasting)) mg/dl Calcium 8.8 (8.5-10.1) mg/dl Phosphorus 3.3 (2.5-4.9) mg/dl Magnesium 1.9 (1.7-2.4) mg/dl Total Bilirubin 0.6 (0.2-1.0) mg/dl AST 20 (13-39) U/L ALT 11 (7-52) U/L Alkaline Phosphatase 42 (34-104) U/L Troponin I 0.03 (0-0.04) ng/ml Total Protein 6.0 (6.0-8.3) gm/dl Albumin 3.9 (3.4-5.0) gm/dl Globulin 2.1 L (2.5-4.0) gm/dl Albumin/Globulin Ratio 1.9 (0.9-2) Lipase 37 (11-82) U/L Urine Color Urine Appearance (Clear) Urine pH (4.5-7.5) Ur Specific Wadley (1.000-1.030) Urine Protein (Negative) Urine Glucose (UA) (Negative) Urine Ketones (Negative) Urine Blood (Negative) Urine Nitrite (Negative) Urine Bilirubin (Negative) Urine Urobilinogen (Negative) Ur Leukocyte Esterase (Negative) Urine WBC (Auto) (0-5) /hpf Urine RBC (Auto) (0-4) /hpf U Hyaline Cast (Auto) (0-5) /lpf U Epithel Cells (Auto) (0-5) /lpf Urine Bacteria (Auto) (Negative) Urine Opiates Screen (Neg) Ur Methadone, Qual (Neg) Urine Barbiturates (Neg) Ur Phencyclidine (PCP) (Neg) U Amphetamin/Meth Scrn (Neg) MDMA (Ecstasy) Screen (Neg) U Benzodiazepines Scrn (Neg) Ur Cocaine Metabolite (Neg) U Marijuana (THC) Screen (Neg) SARS-CoV-2, RNA, NAAT (NEGATIVE) 04/30/21 04/30/21 04/30/21 Range/Units 10:20 10:20 12:25 WBC (4.8-10.8) K/uL RBC (4.2-5.4) M/uL Hgb (12.0-16.0) g/dL Hct (37-47) % MCV (80-100) fL MCH (25-34) pg MCHC (32-36) g/dL RDW Std Deviation (36.4-46.3) fL RDW Coeff of [place] (11.5-14.5) % Plt Count (130-400) K/uL MPV (7.4-10.4) fL Immature Gran % (Auto) % Neut % (Auto) % Lymph % (Auto) % Dup[place] % (Auto) % Eos % (Auto) % Baso % (Auto) % Neut # (Auto) (1.4-6.5) K/uL Lymph # (Auto) (1.2-3.4) K/uL [place]age # (Auto) (0.11-0.59) K/uL Eos # (Auto) (0-0.5) K/uL Baso # (Auto) (0-0.2) K/uL Immature Gran # (Auto) (0.00-0.02) K/uL PT (9.0-12.0) Seconds INR (0.9-1.1) Sodium (136-145) mmol/L Potassium (3.5-5.1) mmol/L Chloride (98-107) mmol/L Carbon Dioxide (21-32) mmol/L Anion Gap (3-11) BUN (6-23) mg/dl Creatinine (0.6-1.2) mg/dl Est Cr Clr Drug Dosing Est GFR ( Amer) ml/min Est GFR (Non-Af Amer) ml/min BUN/Creatinine Ratio (10-20) Glucose (70-99(Fasting)) mg/dl Calcium (8.5-10.1) mg/dl Phosphorus (2.5-4.9) mg/dl Magnesium (1.7-2.4) mg/dl Total Bilirubin (0.2-1.0) mg/dl AST (13-39) U/L ALT (7-52) U/L Alkaline Phosphatase (34-104) U/L Troponin I (0-0.04) ng/ml Total Protein (6.0-8.3) gm/dl Albumin (3.4-5.0) gm/dl Globulin (2.5-4.0) gm/dl Albumin/Globulin Ratio (0.9-2) Lipase (11-82) U/L Urine Color Yellow Urine Appearance Clear (Clear) Urine pH 7.0 (4.5-7.5) Ur Specific [place]ley 1.010 (1.000-1.030) Urine Protein Negative (Negative) Urine Glucose (UA) Negative (Negative) Urine Ketones Negative (Negative) Urine Blood Negative (Negative) Urine Nitrite Positive A (Negative) Urine Bilirubin Negative (Negative) Urine Urobilinogen Negative (Negative) Ur Leukocyte Esterase Negative (Negative) Urine WBC (Auto) 1-5 (0-5) /hpf Urine RBC (Auto) 0-4 (0-4) /hpf U Hyaline Cast (Auto) 1-5 (0-5) /lpf U Epithel Cells (Auto) 10-20 H (0-5) /lpf Urine Bacteria (Auto) 2+ H (Negative) Urine Opiates Screen Neg (Neg) Ur Methadone, Qual Neg (Neg) Urine Barbiturates Neg (Neg) Ur Phencyclidine (PCP) Neg (Neg) U Amphetamin/Meth Scrn Neg (Neg) MDMA (Ecstasy) Screen Neg (Neg) U Benzodiazepines Scrn Neg (Neg) Ur Cocaine Metabolite Neg (Neg) U Marijuana (THC) Screen Neg (Neg) SARS-CoV-2, RNA, NAAT NEGATIVE (NEGATIVE) Administered Medications Sodium Chloride (Nss 1000ml) 1,000 mls @ 125 mls/hr IV .Q8H MARILIA Stop: 05/30/21 15:44 Last Admin: 04/30/21 15:54 Dose: 125 mls/hr Documented by: [id number] Ceftriaxone Sodium 1,000 mg/ (Dextrose) 50 mls @ 100 mls/hr IV Q24H MARILIA; Protocol Stop: 05/05/21 19:29 Last Infusion: 04/30/21 21:29 Dose: 0 mls/hr Documented by: [id number] Admin: 04/30/21 20:52 Dose: 100 mls/hr Documented by: [id number] Imaging Data Radiologist's Impression: Head CT 04/30/21 13:02 CT head/brain wo con at 1:54 PM CLINICAL HISTORY: f/u ? bleed COMPARISON STUDY: 04/30/2021 at 10:[address] DOSE: 1151.75 mGy.cm TECHNIQUE: Standard CT of the Brain was performed without IV contrast. A dose lowering technique was utilized adhering to the principles of ALARA. FINDINGS: Compared to the previous examination, a very small hyperdense focus is again seen within the left parietal lobe measuring 3 mm on the current study and essentially unchanged. The persistence of this finding does suggest a very small punctate hemorrhage. No other evidence suggestive of hemorrhage is seen. 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 There is mild cerebral cortical atrophy and decreased attenuation in the periventricular white matter representing remote small vessel disease. The remainder of the study is unchanged. IMPRESSION: 1. Compared to the previous examination, there is a persistent small focus of hyperdensity within the left parietal lobe. Its persistence is suspicious for a small punctate hemorrhage rather than artifact. No other evidence for hemorrhage is seen. 2. 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 ACT 112: Negative or not required by law. Electronically signed by: Josse Dior M.D. 04/30/2021 2:15 PM Discharge Plan Visit Data Chief Complaint: Overdose (Intentional) Stated Complaint: OVERDOSE, MHID ED Provider: Jani Pinedo Discharge Problem: Intentional overdose, Suicide attempt, Abnormal CT scan of head, Somnolence Patient Disposition: Admitted As Inpatient Discharge Instructions Interventions: ED Discharge Assessment Last Done: 04/30/21 19:49
[2021-04-30 17:05] LABS: Base Excess ABG 2.3 mEq/L (-9-1.8); HCO3 ABG 27 mmol/L (19-24); Oxygen Saturation ABG 96.1 % (90-95); PCO2 ABG 44 mmHg (35-46); PO2 ABG 80 mmHg (80-95); pH ABG 7.41 (7.35-7.45)
[2021-04-30 17:06] LABS: Allen Test Pos (Pos)
[2021-04-30 17:45] LABS: Acetaminophen < 3 ug/ml (10-30); Salicylate < 3.0 mg/dl (3.0-30)
[2021-04-30] MEDS ORDERED: ACETAMINOPHEN 325 MG TAB PO PRN (18:47)
--- NOTE | 2021-04-30 19:08 | Electrocardiogram Report ---
Test Reason : Blood Pressure : / mmHG Vent. Rate : 078 BPM Atrial Rate : 078 BPM P-R Int : 172 ms QRS Dur : 096 ms QT Int : 392 ms P-R-T Axes : 081 083 079 degrees QTc Int : 446 ms Normal sinus rhythm When compared with ECG of 22-JUN-2012 14:10, No significant change was found Confirmed by Caesar Waddell ([id number]) on 04/30/2021 7:07:31 PM Referred By: ER Confirmed By:Chemo Waddell
[2021-04-30] MEDS: cefTRIAXone SODIUM 1,000 MG in DEXTROSE 5% 50 ML IV SCH (20:52)
[2021-04-30 23:00] LABS: Anion Gap 3 (3-11); BUN Creatinine Ratio 26.7 (10-20); Blood Urea Nitrogen 16 mg/dl (6-23); Calcium 8.6 mg/dl (8.5-10.1); Carbon Dioxide 29 mmol/L (21-32); Chloride 99 mmol/L (98-107); Est GFR (African American) 94.3 ml/min; Est GFR (Non-African American) 81.4 ml/min; Glucose 76 mg/dl (70-99(Fasting)); Potassium 4.1 mmol/L (3.5-5.1); Sodium 131 mmol/L (136-145)
[2021-05-01] MEDS: SODIUM CHLORIDE 0.9% 1000ML 1,000 ML IV SCH ×3 (00:11→16:53)
[2021-05-01 06:18] LABS: Hematocrit (blood only) 36.6 % (37-47); Hemoglobin 12.1 g/dL (12.0-16.0); Mean Corpuscular Hemoglobin 29.8 pg (25-34); Mean Corpuscular Hgb Conc 33.1 g/dL (32-36); Mean Corpuscular Volume 90.1 fL (80-100); Mean Platelet Volume 10.7 fL (7.4-10.4); Platelet Count 215 K/uL (130-400); RDW Coefficient of Variation 14.4 % (11.5-14.5); RDW Standard Deviation 47.4 fL (36.4-46.3); Red Blood Count 4.06 M/uL (4.2-5.4); White Blood Count 4.07 K/uL (4.8-10.8)
[2021-05-01 06:39] LABS: Alanine Aminotransferase 9 U/L (7-52); Albumin Level 3.5 gm/dl (3.4-5.0); Alkaline Phosphatase 44 U/L (34-104); Anion Gap 5 (3-11); Aspartate Aminotransferase 18 U/L (13-39); BUN Creatinine Ratio 27.3 (10-20); Bilirubin,Total 0.6 mg/dl (0.2-1.0); Blood Urea Nitrogen 15 mg/dl (6-23); Calcium 7.8 mg/dl (8.5-10.1); Carbon Dioxide 25 mmol/L (21-32); Chloride 100 mmol/L (98-107); Est GFR (African American) 97.1 ml/min; Est GFR (Non-African American) 83.7 ml/min; Glucose 71 mg/dl (70-99(Fasting)); Sodium 130 mmol/L (136-145)
--- NOTE | 2021-05-01 09:00 | Hospitalist Progress Note ---
Date of Service May 01, 2021 Assessment & Plan (1) Intentional overdose: Plan: Intentional drug overdose Suicidal attempt Suspected to have consumed about 40 tablets of Lorazepam Drug Screen negative: Likely falsely negative secondary to poor cross-reactivity of lorazepam with Assay Contacted poison control Poison control recommends conservative management IV fluids Supplemental oxygen as needed One-on-one observation Psychiatry consulted Try to feed Obtain ABG Hyponatremia Likely secondary to poor oral intake Sodium 130 IV fluids S/UOSM, Urine Lytes, euvolemic, TSH Suspected UTI Rocephin Suspected Intracranial hemorrhage Age-indeterminate lacunar infarct of the basal ganglia -CT head showed small focus of hyperdensity within the left parietal lobe suspicious for small punctate hemorrhage. Also noted Lackner infarct in the basal ganglia on the left. --Patient's son, granddaughter believed that patient with not want any invasive intervention and would not want to be transferred to tertiary care center Family also confirmed that patient would wanted to be DNR even prior to recent events Family agrees with conservative management for now Neurology consulted Neurochecks requested Hold aspirin Avoid anticoagulants ER physician discussed with neurologist on-call at [facility] Dr. Almendarez who believes that CT head findings are incidental and would not explain the degree of somnolence. Also recommended no intervention warranted currently. Fall precautions PT/OT when appropriate Anxiety Depression Psychiatry consulted H/O breast cancer S/P mastectomy H/O adenocarcinoma of lung Radiation pneumonitis as per records H/O PE Asthma/COPD Resume home medications as able DVT Px: SCDs Code Status DNI/DNR Labs checked ROS-No Headache, No Visual Changes, No Nausea, No Vomiting, No Fever, No Chills, No Neck Pain or Stiffness, No Chest Pain, No Palpitations, No SOB, No RUSSELL, No Cough, No Sputum, No Wheezing, No Abdominal Pain, No Diarrhea, No Hematemesis, No Hemoptysis, No Unexpected Weight Loss, No Flank pain, No Melena, No Hematochezia, No Frequency, No Urgency, No Burning, No Hematuria, No Rashes, No Diaphoresis. Appetite is Normal Physical Exam Gen-AAO x 3, NAD, Afebrile, Pleasant and cooperative Head-NCAT, EOMI, PERRLA, Anicteric Sclera, No Posterior Pharyngeal Erythema Neck-Supple, No JVD, No Thyromegaly, No Masses, No LAD, No Bruits Lungs-Clear to Auscultation Bilaterally, No Rales, No Rhonchi, No Wheezing, No Crepitus Chest-No S4, +S1, +S2, No S3, No Murmurs, No Rubs, No Gallops, No Ectopy Abdomen-Soft, Bowel Sounds Present, Non Tender, Non Distended, No Hepatomegaly, No Splenomegaly, No Palpable Masses, No Rebound, No Rigidity, No Guarding Musculoskeletal-Full Range of Motion Bilaterally, No CVAT Extremities-No Cyanosis, No Clubbing, No Edema Nuero-Cranial Nerves II-XII grossly intact, Motor WNL, DTRs WNL, Strength WNL, Non Focal Psych-Normal Mood Admission and Anticipated Discharge Date Admission Date: April 30, 2021 Subjective Patient seen sitter at bedside, events noted Results & Data Results & Data ([facility]) Vital Signs (Past 12 Hours) Vital Signs Temp Pulse Pulse Resp BP Pulse Ox 05/01/21 07:30 36.5 C 92 H 20 146/74 H 97 05/01/21 02:52 36.9 C 108 H 18 141/76 H 97 04/30/21 23:16 36.7 C 101 H 18 126/69 98 04/30/21 22:20 80 (1) Intentional overdose Encounter type: initial encounter Qualified Code(s): T50.902A - Poisoning by unspecified drugs, medicaments and biological substances, intentional self-harm, initial encounter
[2021-05-01] MEDS ORDERED: GADOBUTROL 65ML VIAL IV ONE (10:14)
--- NOTE | 2021-05-01 11:05 | Magnetic Resonance Report ---
MR brain wo/w con CLINICAL HISTORY: Intracranial bleed TECHNIQUE: Multiplanar and multisequence MR images of the brain were obtained prior to and following administration of gadolinium contrast. Comparison: None available at the time of this dictation. FINDINGS: There is a punctate focus of restricted diffusion in the left posterior internal capsule with associa suzanne edema, mild swelling, and enhancement.. Foci of T2 and FLAIR hyperintensity are noted in the para ventricular areas consistent with chronic small vessel ischemic disease. Mild diffuse encephalomalaci a is seen. There is approximately 3 mm rightward midline shift. There is no evidence of acute intrapa renchymal hemorrhage. No extra axial fluid collections are seen. The corpus callosum, pituitary gland , and cerebellar tonsils appear grossly unremarkable. Flow voids of the major intracranial arterial vessels are identified. The imaged portions of the para nasal sinuses, mastoid air cells, and orbits are unremarkable. IMPRESSION: There is restricted diffusion, edema, enhancement in the right posterior internal capsule with minima l rightward midline shift. Findings are compatible with acute lacunar infarct. No hemorrhage is seen to correspond to hyperdensity seen in the prior CT head. ACT 112: Negative or not required by law. Electronically signed by: Rodríguez Villalta M.D. 05/01/2021 11:03 AM
--- NOTE | 2021-05-01 11:56 | Communication Note ---
Date of Service: May 01, 2021 Sandrita coronado is 89 years old and was admitted to the hospital for a recurrent suicidal attempt with ingestion of lorazepam having been found by her family in a stuporous state and in the setting of longstanding anxiety and depression, history of breast cancer, pulmonary nodule, radiation pneumonitis, hypertension, history of pulmonary embolism, and in the process of evaluation had a CAT scan of her head done showing a lacunar infarction and a small area of punctate hemorrhage in the left parietal lobe. 2 scans been done there been stable and her case was discussed with the neurosurgeon on-call at [facility] last night who appropriately stated that the findings had nothing to do with her somnolence and were probably something that could be followed up locally and did not require transfer Neurology has been called I assume as a means of follow-up of the abnormal imaging Medications at home include aspirin calcium Flonase loratadine lorazepam, losartan, melatonin, metronidazole topical gel, montelukast, omega 3 fatty acids omeprazole. His inhalers and Effexor Review of systems could not be obtained from the patient reliable fashion today she was still little distracted but was sitting up eating I just had a psychiatry evaluation She offers a history of prior head injury in 2002 but nothing recently had been coughing and denied any headache change in mental status but has clearly become increasingly depressed probably because of the of her and due to pre-existing issues with depression and in light of her underlying chronic illnesses Blood pressure 133/73 pulse 95 respirations 20 she is afebrile O2 saturation 97% she was awake alert but stunned in appearance offered responses to questions with a very flat affect and fairly monotonous speech may have had a little bradykinetic overall appearance but there is no overt parkinsonism with tremor etc. A more detailed examination was not felt to be appropriate at this point Patient has had a suicide attempt and her mental status is well explained on this basis She has an incidentally abnormal CT scan with a very small presumptive hemorrhage in the deep left parietal lobe and some old ischemic changes likely due to small vessel disease which is not inappropriate for age She probably would need another CAT scan in about a week but in light of her underlying carcinomas an MRI of the brain may be more appropriate to really evaluate for underlying small metastatic deposits as a cause of the bleeding Very suggestive [place] to the admitting team that an MRI of the brain be done with and without contrast just to exclude the remote possibility of micro metastatic deposits with hemorrhage Neurology will sign off at this point with the above recommendations Kee Genao MD The above note was generated utilizing voice recognition technology and may have spelling errors punctuation errors pronoun usage errors and syntax errors
--- NOTE | 2021-05-01 12:07 | Communication Note ---
Date of Service: May 01, 2021 I just became aware that an MRI scan has been done on Sandrita Arevalo and reviewed the imaging and report. The previously reported lacunar infarction apparently is more subacute and there is no evidence for significant hemorrhage. The policy of withholding anticoagulation in the setting can therefore be reversed and her aspirin can be restarted and I would add Plavix 75 mg for dual antiplatelet combination lasting 21 days and then resorting to pure Plavix The scan has nicely eliminated the possibility of metastatic disease but has revealed a clinically silent small lacunar infarction which again is an incidental finding probably is secondary to underlying small vessel disease and indicates the need for continued antiplatelet therapy Because this is an incidental stroke neurology will make arrangements for her to be seen in our outpatient clinic in about 3 to 4 weeks. She probably also should have CT angiography done of her blood vessels and an echocardiogram the latter to evaluate for possible nonbacterial thrombotic endocarditis related to her cancer Neurology will follow up on these recommendations by computer Kee Genao MD
--- NOTE | 2021-05-01 12:39 | Psychiatric Consultation ---
Date of Consultation May 01, 2021 Impression / Recommendations Impression 89 yo with recent of of 70 years with worsening depression and impulsive suicide attempt of lorazepam resulting in ICU admission. Diagnostically consistent with unspecified depression-complicated bereavement versus MDD. While attempt was impulsive concerning that she wrote suicide note, had no help seeking behaviors and took plenty of medication for potential lethality. Remarkably does not seem to be presenting with encephalopathy though remains somnolent due to lorazepam ingestion. Would continue to hold venlafaxine due to hyponatremia. Will have to revisit if psychiatric medications are safe option once hyponatremia resolves. Given long history of lorazepam use and ingestion should monitor for withdrawal encephalopathy/seizures as overdose resolves. Acute risk of self-harm remains elevated and high given suicide attempt requiring medical admission, major depressive symptoms, history of prior attempts, impulsivity. Given elevated risk of harm to self if she asks to leave would meet 302 criteria. Once medically clear will discuss treatment options: inpt psychiatric versus outpatient with additional support and safety planning. -Psych will continue to follow -Continue 1-on-1 for risk of harm to self -Do not discharge or allow to leave AMA -Hold psych medications for now -Once medically cleared will discuss treatment options -psych liason spoke with pt's son and will keep family updated re: psychiatric treatment options once medically clear (1) Suicide attempt: (2) Depression, unspecified: see above Risk Factors Assessment Do You Have Access To A Gun?: No Psych History Identifying Data 89 yo woman with a history of cancer, HTN, asthma/COPD, CVA with lacunar infarct, and depression admitted medically for intentional suicide attempt via overdose. Psychiatry was consulted for recommendations. Chief Complaint "I couldn't do it anymore". History of Present Illness Sandrita remains quite sedated today but is able to participate in a brief interview, other information is gathered from psych liason and chart review. Sandrita reports worsening depression since her 's two months ago. T hey were for 70 years. She denied any SI until morning when at about 1am she woke up and felt like "there wasn't anything to do" and had impulsive SI and decided to take about 40 tabs of her prescribed lorazepam. She believed this would kill her. She wrote a suicide note to her family on her grocery list pad and left it on the kitchen table stating "I couldn't do it anymore". She then went to sleep planning for family to find her . Her daughter in law found her on Monday morning and brought her to the ED. Fully oriented, knows in hospital but couldn't recall name of it. Currently she states she is "happy" to be alive noting she is looking forward to spring and loves to garden and plant luna. She confirmed the details of the attempt, struggled to expand on depression symptoms due to fatigue. Did endorse feeling hungry. Remains agreeable to having us speak with her son. Discussed that her venlafaxine will be held due to her low sodium. She then fell back asleep. Past Psychiatric History Previous Psych History: depression Outpatient Services: none Previous Psych Admissions: none Do You Have Access To A Gun?: No History of Previous Suicide Attempt: No (she denies, per chart family stated hx of prior attempt ) Past Medication Trials: venlfaxine currently 75mg qd Allergies Allergy/AdvReac Type Severity Reaction Status Date / Time bee venom protein (honey bee) Allergy Severe ANAPHYLAXIS Verified 10/01/20 10:40 Home Medications Medication Instructions Recorded Confirmed Type calcium polycarbophil 625 mg 1,250 mg PO DAILY 03/07/18 04/30/21 History tablet (Fiber Laxative (calcium polycarbophil)) lorazepam 1 mg tablet 1 mg PO BID 03/07/18 04/30/21 History losartan 25 mg tablet 25 mg PO QAM 03/07/18 04/30/21 History venlafaxine 75 mg capsule,extended 75 mg PO BID 03/07/18 04/30/21 History release 24 hr (Effexor XR) metronidazole 1 % topical gel 1 applic TOP DAILY 05/22/19 04/30/21 History umeclidinium 62.5 mcg-vilanterol 1 inh INHALATION DAILY #60 ea 09/01/20 04/30/21 Rx 25 mcg/actuation powdr for inhalation (Anoro Ellipta) aspirin 81 mg tablet,delayed 81 mg PO DAILY 04/30/21 04/30/21 History release calcium carbonate 600 mg-vitamin 1 tab PO UD 04/30/21 04/30/21 History D3 5 mcg (200 unit) tablet (Calcium 600 + D(3)) fluticasone propionate 50 1 spray INTRANASAL Q12H 04/30/21 04/30/21 History mcg/actuation nasal spray,suspension loratadine 10 mg tablet 10 mg PO DAILY 04/30/21 04/30/21 History melatonin 5 mg tablet 5 mg PO HS 04/30/21 04/30/21 History montelukast 10 mg tablet 10 mg PO HS 04/30/21 04/30/21 History omega 6-bqr-qah-fish oil 1,000 mg 1 cap PO BID 04/30/21 04/30/21 History (120 mg-180 mg) capsule (Fish Oil) omeprazole 20 mg capsule,delayed 20 mg PO DAILY 04/30/21 04/30/21 History release tiotropium 2.5 mcg-olodaterol 2.5 2 puff INHALATION QAM 04/30/21 04/30/21 History mcg/actuation mist for inhalation (Stiolto Respimat) triamcinolone acetonide 0.1 % 1 applic TOPICAL BID 04/30/21 04/30/21 History topical cream Personal History Living Arrangements: Home (on same property as her son) Employment Status: Retired Marital Status: Beliefs That Will Affect Care: None Additional Comments: has 2 sons and 4 grandchildren Patient History Medical History Abnormal CT of the chest Anxiety Asthma USING RESCUE INHALER FREQUENTLY/DAILY Asthma-COPD overlap syndrome Cancer BREAST CANCER-LEFT MASTECTOMY Chronic obstructive pulmonary disease Deep vein thrombosis 15 YEARS AGO S/P LEG SURGERY Dysphagia HX ESOPHAGEAL STRETCHING GERD (gastroesophageal reflux disease) History of pulmonary embolism Hypertension Osteoarthritis Prolapsed bladder Pulmonary nodule, right Rectal bleeding Surgical History History of cataract surgery RT/LEFT History of colonoscopy History of esophagogastroduodenoscopy (EGD) History of mastectomy LEFT (NO BP/LAB DRAWS) History of tonsillectomy History of tooth extraction History of total hysterectomy with bilateral salpingo-oophorectomy (BSO) History of total knee replacement LEFT/RT Family History Other No family history of adverse response to anesthesia Social History Smoking Status: Never smoker Second Hand Exposure: No; Do You Dip or Chew Tobacco: No; Tobacco Cessation Education Requested by Patient: No Hx Alcohol Use: No Hx Substance Use: No Preferred Language: Surinamese Communication Ability: Effective 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: No Beliefs That Will Affect Care: None Current Living Situation: Alone Other Information That Helps Us Care for You: No Feels Safe at Home: Yes Safety Concerns: Feels Safe At This Time Childhood Exposure to Second-Hand Smoke: Yes Dental Care, Regularly: Yes Assistive Devices: Glasses and Hearing Aid - Bilateral Assistive Devices Comment: did not5 bring hearing aids with her Physical Exam Psychiatric: Orientation: alert and oriented x 3 Apperance: appropriately dressed and appropriately groomed Eye Contact: + poor eye contact Motor Behavior: no abnormal motor movements Speech: + abnormal rate/rhythm/volume of speech (soft, brief) Affect: + depressed affect Mood: + depressed mood Thought Process: goal directed thought process Thought Content: reality based without delusions Suicidal Thoughts: denies suicidal thoughts Homicidal Thoughts: denies homicidal thoughts Hallucinations: no auditory hallucinations and no visual hallucinations Cognition: recent memory grossly intact, remote memory grossly intact, attention grossly intact and language grossly intact Estimated Intelligence: consistent with education level Insight: + fair insight Judgement: + fair judgement Vital Signs (Past 24 Hours): Last Vital Signs Temp 37.0 C 05/01/21 11:19 Pulse 95 H 05/01/21 11:19 Resp 20 05/01/21 11:19 BP 133/73 05/01/21 11:19 Pulse Ox 97 05/01/21 11:19 Review of Systems Unobtainable due to reduced consciousness Results & Data (PSY) Laboratory Results low NA+ Medications Administered Sodium Chloride (Nss 1000ml) 1,000 mls @ 125 mls/hr IV .Q8H MARILIA Stop: 05/30/21 15:44 Last Admin: 05/01/21 09:02 Dose: 125 mls/hr Documented by: [id number] Infusion: 05/01/21 08:11 Dose: 125 mls/hr Documented by: [id number] Admin: 05/01/21 00:11 Dose: 125 mls/hr Documented by: [id number] Infusion: 05/01/21 00:09 Dose: 0 mls/hr Documented by: [id number] Admin: 04/30/21 15:54 Dose: 125 mls/hr Documented by: [id number] Ceftriaxone Sodium 1,000 mg/ (Dextrose) 50 mls @ 100 mls/hr IV Q24H [facility]; Protocol Stop: 05/05/21 19:29 Last Infusion: 04/30/21 21:29 Dose: 0 mls/hr Documented by: [id number] Admin: 04/30/21 20:52 Dose: 100 mls/hr Documented by: [id number] Coding Level of Care Code 16814 Inpt Consult Level 3 Diagnoses Suicide attempt T14.91XA Depression, unspecified F32.A
[2021-05-01] MEDS: CLOPIDOGREL BISULFATE 75 MG TAB PO SCH (12:52)
[2021-05-01] MEDS: ASPIRIN 81 MG ECTAB PO SCH (12:52)
[2021-05-01] MEDS ORDERED: OPTIRAY 320 125ml IV ONE (13:12)
--- NOTE | 2021-05-01 13:42 | CT Scan Report ---
CT angio neck with con, CT angio head w con CLINICAL HISTORY: CVA TECHNIQUE: CT angiography of the head and neck was performed following intravenous administration of iodinated contrast. Coronal and sagittal MIPS were obtained from the axial data set and were submitte d for review. Automated dose lowering techniques and/or adjustment according to patient size were ut ilized for this examination. All measurements were calculated based on NASCET criteria. Comparison: None available at the time of this dictation. FINDINGS: Scarring is seen in the right upper lobe and bilateral apices. CTA Neck: A 3 vessel aortic arch is shown. There is no significant atherosclerotic plaque in the aor tic arch or the origins of the innominate, left common carotid, and left subclavian arteries. The c ommon carotid, external carotid, cervical segments of the internal carotid arteries, and the cervical segments of the vertebral arteries are patent without hemodynamically significant stenosis. The left vertebral artery is dominant. CTA Head: The anterior and posterior cerebral circulations are patent. No hemodynamically significan t stenosis, aneurysm, dissection, or arteriovenous malformation is shown. Atherosclerotic disease is noted. IMPRESSION: 1. No occlusion, hemodynamically significant stenosis, aneurysm, dissection, or arteriovenous malfor mation in the major intracranial arteries. 2. No occlusion, hemodynamically significant stenosis, or dissection in the major cervical arteries. Within the limits of the CTA rather than a noncontrast head CT, there is no evidence of acute hemorr horacio. Assessment of stenosis of the internal carotid arteries is based on NASCET criteria. ACT 112: Negative or not required by law. Electronically signed by: Rodríguez Villalta M.D. 05/01/2021 1:40 PM
[2021-05-01] MEDS: cefTRIAXone SODIUM 1,000 MG in DEXTROSE 5% 50 ML IV SCH (19:58)
[2021-05-01 22:15] LABS: Urine Potassium 23.3 mmol/L
[2021-05-02] MEDS: SODIUM CHLORIDE 0.9% 1000ML 1,000 ML IV SCH ×2 (00:01→06:32)
--- NOTE | 2021-05-02 06:25 | Electrocardiogram Report ---
Test Reason : Blood Pressure : / mmHG Vent. Rate : 086 BPM Atrial Rate : 086 BPM P-R Int : 154 ms QRS Dur : 090 ms QT Int : 374 ms P-R-T Axes : 079 078 073 degrees QTc Int : 447 ms Sinus rhythm with Premature atrial complexes Right atrial enlargement Possible Right ventricular hypertrophy Abnormal ECG When compared with ECG of 30-APR-2021 09:48, Premature atrial complexes are now Present Confirmed by Glenn Bragg ([id number]) on 05/02/2021 6:24:53 AM Referred By: REFERRED SELF Confirmed By:Glenn Bragg
[2021-05-02 06:43] LABS: Hematocrit (blood only) 38.5 % (37-47); Hemoglobin 12.8 g/dL (12.0-16.0); Mean Corpuscular Hemoglobin 29.7 pg (25-34); Mean Corpuscular Hgb Conc 33.2 g/dL (32-36); Mean Corpuscular Volume 89.3 fL (80-100); Mean Platelet Volume 10.5 fL (7.4-10.4); Platelet Count 214 K/uL (130-400); RDW Coefficient of Variation 14.4 % (11.5-14.5); RDW Standard Deviation 47.1 fL (36.4-46.3); Red Blood Count 4.31 M/uL (4.2-5.4); White Blood Count 5.26 K/uL (4.8-10.8)
[2021-05-02 07:10] LABS: Albumin Globulin Ratio 1.4 (0.9-2); Albumin Level 3.7 gm/dl (3.4-5.0); BUN Creatinine Ratio 23.2 (10-20); Bilirubin,Total 0.5 mg/dl (0.2-1.0); Creatinine Clr Calc Pharmacy 59.7 ml/min; Est GFR (African American) 96.5 ml/min; Est GFR (Non-African American) 83.2 ml/min; Globulin 2.6 gm/dl (2.5-4.0); Potassium 3.8 mmol/L (3.5-5.1); Total Protein 6.3 gm/dl (6.0-8.3)
[2021-05-02] MEDS: CLOPIDOGREL BISULFATE 75 MG TAB PO SCH (08:38)
[2021-05-02] MEDS: ASPIRIN 81 MG ECTAB PO SCH (08:39)
[2021-05-02] MEDS: UREA (UREA-NA) 15 GM PACK PO SCH ×2 (08:39→20:27)
--- NOTE | 2021-05-02 10:36 | Hospitalist Progress Note ---
Date of Service May 02, 2021 Assessment & Plan (1) Intentional overdose: Plan: Intentional drug overdose Suicidal attempt Suspected to have consumed about 40 tablets of Lorazepam Drug Screen negative: Likely falsely negative secondary to poor cross-reactivity of lorazepam with Assay Contacted poison control Poison control recommends conservative management Psychiatry consulted Push Diet Hyponatremia Likely secondary to poor oral intake Sodium 130 Urea, Diet S/UOSM, Urine Lytes, euvolemic, TSH Suspected UTI Rocephin Suspected Intracranial hemorrhage Age-indeterminate lacunar infarct of the basal ganglia-ASA, Plavix for 21 days then stop ASA and resume Plavix thereafter -CT head showed small focus of hyperdensity within the left parietal lobe suspicious for small punctate hemorrhage. Also noted Lackner infarct in the basal ganglia on the left. --Patient's son, granddaughter believed that patient with not want any invasive intervention and would not want to be transferred to tertiary care center Family also confirmed that patient would wanted to be DNR even prior to recent events Family agrees with conservative management for now Neurology on case Avoid anticoagulants ER physician discussed with neurologist on-call at [facility] Dr. Almendarez who believes that CT head findings are incidental and would not explain the degree of somnolence. Also recommended no intervention warranted currently. Fall precautions PT/OT when appropriate Anxiety Depression Psychiatry on case H/O breast cancer S/P mastectomy H/O adenocarcinoma of lung Radiation pneumonitis as per records H/O PE Asthma/COPD Resume home medications as able DVT Px: SCDs Code Status DNI/DNR Labs checked ROS-No Headache, No Visual Changes, No Nausea, No Vomiting, No Fever, No Chills, No Neck Pain or Stiffness, No Chest Pain, No Palpitations, No SOB, No RUSSELL, No Cough, No Sputum, No Wheezing, No Abdominal Pain, No Diarrhea, No Hematemesis, No Hemoptysis, No Unexpected Weight Loss, No Flank pain, No Melena, No Hematochezia, No Frequency, No Urgency, No Burning, No Hematuria, No Rashes, No Diaphoresis. Appetite is Normal Physical Exam Gen-AAO x 3, NAD, Afebrile, Pleasant and cooperative Head-NCAT, EOMI, PERRLA, Anicteric Sclera, No Posterior Pharyngeal Erythema Neck-Supple, No JVD, No Thyromegaly, No Masses, No LAD, No Bruits Lungs-Clear to Auscultation Bilaterally, No Rales, No Rhonchi, No Wheezing, No Crepitus Chest-No S4, +S1, +S2, No S3, No Murmurs, No Rubs, No Gallops, No Ectopy Abdomen-Soft, Bowel Sounds Present, Non Tender, Non Distended, No Hepatomegaly, No Splenomegaly, No Palpable Masses, No Rebound, No Rigidity, No Guarding Musculoskeletal-Full Range of Motion Bilaterally, No CVAT Extremities-No Cyanosis, No Clubbing, No Edema Nuero-Cranial Nerves II-XII grossly intact, Motor WNL, DTRs WNL, Strength WNL, Non Focal Psych-Normal Mood Admission and Anticipated Discharge Date Admission Date: April 30, 2021 Subjective Patient seen looks and feels a lot better, Smiling Results & Data Results & Data ([facility]) Vital Signs (Past 12 Hours) Vital Signs Temp Pulse Pulse Resp BP Pulse Ox 05/02/21 08:30 91 H 05/02/21 07:28 36.6 C 92 H 18 176/92 H 98 05/02/21 03:51 36.4 C L 92 H 18 146/87 H 97 05/01/21 22:59 37.1 C 97 H 18 163/86 H 96 (1) Intentional overdose Encounter type: initial encounter Qualified Code(s): T50.902A - Poisoning by unspecified drugs, medicaments and biological substances, intentional self-harm, initial encounter
[2021-05-02] MEDS ORDERED: METOPROLOL TARTRATE 1 MG/ML VIAL IV STA (13:43)
--- NOTE | 2021-05-02 14:16 | Psychiatric Progress Note ---
Date of Service May 02, 2021 Impression / Recommendations Impression 89 yo with recent of of 70 years with worsening depression and impulsive suicide attempt of lorazepam resulting in ICU admission. Diagnostically consistent with unspecified depression-complicated bereavement versus MDD. While attempt was impulsive concerning that she wrote suicide note, had no help seeking behaviors and took plenty of medication for potential lethality. Remarkably does not seem to be presenting with encephalopathy though remains somnolent due to lorazepam ingestion. Acute risk of self-harm remains elevated and high given suicide attempt requiring medical admission, major depressive symptoms, history of prior attempts, impulsivity. Given elevated risk of harm to self if she asks to leave would meet 302 criteria. Once medically clear will discuss treatment options: inpt psychiatric versus outpatient with additional support and safety planning. 05/02/21: No new recommendations. Remains high risk given ongoing depression and regrets surviving suicide attempt. Once medically clear will explore treatment options, if she remains in need of 1:1 assistance for ambulation this could significantly limit psychiatric treatment options until physical rehab is completed. -Psych will continue to follow -Continue 1-on-1 for risk of harm to self -Do not discharge or allow to leave AMA -Hold psych medications for now -Once medically cleared will discuss treatment options -psych liason spoke with pt's son and will keep family updated re: psychiatric treatment options once medically clear (1) Suicide attempt: (2) Depression, unspecified: see above Risk Factors Assessment Do You Have Access To A Gun?: No Interval History Identifying Information 89 yo woman with a history of cancer, HTN, asthma/COPD, CVA with lacunar infarct, and depression admitted medically for intentional suicide attempt via overdose. Psychiatry was consulted for recommendations. Chief Complaint "I wish I wouldn't have come out of it". Review of Systems Notes see HPI Subjective Subjective Patient was seen & assessed and interval progress reviewed. Today Sandrita is more alert and is sitting in a chair next to her bed. Had some chest pain and had an EKG but denies any other physical pain. Per notes she is requiring assistance to use the bathroom. Fully oriented. Re-iterates details of attempt being impulsive and can't identify any specific triggers other than ongoing depression, grief and hopelessness since her 's . Describes her mood as "down" and states "just wishing I wouldn't have done it" (regarding attempt) and denies current SI but then when we start to discuss potential treatment options including potential for inpatient psychiatric treatment she states "I wish I wouldn't have come out of it" which she clarifies as wishing she had from her attempt and not woken up. Stated her grief therapy was helping "until last night" clarified as night of the attempt. Reviewed inability to restart venlafaxine until her Na+ improves. Physical Exam Psychiatric Orientation: alert and oriented x 3 Apperance: appropriately dressed and appropriately groomed Eye Contact: + poor eye contact Motor Behavior: no abnormal motor movements Speech: + abnormal rate/rhythm/volume of speech (soft, brief) Affect: + depressed affect and + flat affect Mood: + depressed mood Thought Process: goal directed thought process Thought Content: reality based without delusions Suicidal Thoughts: denies suicidal thoughts (but regrets surviving attempt) Homicidal Thoughts: denies homicidal thoughts Hallucinations: no auditory hallucinations and no visual hallucinations Cognition: recent memory grossly intact, remote memory grossly intact, attention grossly intact and language grossly intact Estimated Intelligence: consistent with education level Insight: + impaired insight Judgement: + impaired judgement Vital Signs (Past 24 Hours) Last Vital Signs Temp 36.6 C 05/02/21 11:45 Pulse 130 H 05/02/21 14:10 Resp 18 05/02/21 11:45 BP 156/84 H 05/02/21 14:10 Pulse Ox 98 05/02/21 11:45 Results & Data ([facility]) Laboratory Results Laboratory Results - last 24 hr 05/01/21 05/01/21 05/02/21 21:50 21:50 06:35 WBC 5.26 RBC 4.31 Hgb 12.8 Hct 38.5 MCV 89.3 MCH 29.7 MCHC 33.2 RDW Std Deviation 47.1 H RDW Coeff of [place] 14.4 Plt Count 214 MPV 10.5 H Sodium Potassium Chloride Carbon Dioxide Anion Gap BUN Creatinine Est Cr Clr Drug Dosing Est GFR ( Amer) Est GFR (Non-Af Amer) BUN/Creatinine Ratio Glucose Calcium Total Bilirubin AST ALT Alkaline Phosphatase Troponin I Total Protein Albumin Globulin Albumin/Globulin Ratio TSH Urine Osmolality 371 L Urine Sodium 108 Urine Potassium 23.3 Urine Chloride 98 05/02/21 05/02/21 05/02/21 06:35 06:35 13:46 WBC RBC Hgb Hct MCV MCH MCHC RDW Std Deviation RDW Coeff of [place] Plt Count MPV Sodium 130 L Potassium 3.8 Chloride 102 Carbon Dioxide 24 Anion Gap 4 BUN 13 Creatinine 0.56 L Est Cr Clr Drug Dosing 59.7 Est GFR ( Amer) 96.5 Est GFR (Non-Af Amer) 83.2 BUN/Creatinine Ratio 23.2 H Glucose 84 Calcium 8.0 L Total Bilirubin 0.5 AST 18 ALT 9 Alkaline Phosphatase 47 Troponin I Pending Total Protein 6.3 Albumin 3.7 Globulin 2.6 Albumin/Globulin Ratio 1.4 TSH 1.631 Urine Osmolality Urine Sodium Urine Potassium Urine Chloride Current Inpatient Medications Current Inpatient Medications: Current Inpatient Medications Acetaminophen (Acetaminophen 325 Mg Tab) 650 mg PO Q4H PRN PRN Reason: Pain or Fever Stop: 05/30/21 18:46 Aspirin (Aspirin 81 Mg Ectab) 81 mg PO [facility] Stop: 05/31/21 12:14 Last Admin: 05/02/21 08:39 Dose: 81 mg Documented by: Clopidogrel Bisulfate (Clopidogrel Bisulfate 75 Mg Tab) 75 mg PO [facility] Stop: 05/31/21 12:14 Last Admin: 05/02/21 08:38 Dose: 75 mg Documented by: Ceftriaxone Sodium 1,000 mg/ (Dextrose) 50 mls @ 100 mls/hr IV Q24H [facility]; Protocol Stop: 05/05/21 19:29 Last Infusion: 05/01/21 20:30 Dose: Infused Documented by: Urea (Urea (Urea-Na) 15 Gm Pack) 15 gm PO BID [facility] Stop: 06/01/21 08:59 Last Admin: 05/02/21 08:39 Dose: 15 gm Documented by:
[2021-05-02] MEDS: MoRPHine SULFATE 2 MG/ML CARP IV PRN (15:36)
--- NOTE | 2021-05-02 19:26 | Communication Note ---
Date of Service: May 02, 2021 I reviewed Sandrita's chart to the psychiatry progress note the CT angiography head neck and echocardiographic studies. She remains at risk for self-harm as per psychiatry but apparently is only somnolent does not have a significant encephalopathy nor did she yesterday when I initially evaluated her. CT angiographic studies show no evidence for potential source of embolization nor does the echocardiographic study nor does show some mild mitral regurgitation and some aortic valve issues noted which I think are significant in terms of being potential sources of clot in the ventricular function etc. seems to be all reasonably good We seem to have an incidental recently remaining deep small vessel event occurring in the setting of a suicide attempt was in the past obtained but without clinical manifestations and certainly not what precipitated the suicidal ideation as this was present before We will suggest dual antiplatelet therapy for 21 days and then stop the aspirin and continue Plavix as a single agent We will arrange for routine post stroke follow-up in our office in about a month We are going officially sign off the case unless things change Kee Genao MD
[2021-05-02] MEDS: cefTRIAXone SODIUM 1,000 MG in DEXTROSE 5% 50 ML IV SCH (20:27)
--- NOTE | 2021-05-03 06:53 | Hospitalist Progress Note ---
Date of Service May 03, 2021 Assessment & Plan (1) Intentional overdose: Plan: Intentional drug overdose Suicidal attempt Suspected to have consumed about 40 tablets of Lorazepam Drug Screen negative: Likely falsely negative secondary to poor cross-reactivity of lorazepam with Assay Contacted poison control Poison control recommends conservative management Psychiatry on case Push Diet Hyponatremia Likely secondary to poor oral intake Sodium 130 Urea, Diet S/UOSM, Urine Lytes, euvolemic, TSH Suspected UTI Rocephin Chest Pain-EKG ST, Trops are negative Suspected Intracranial hemorrhage-Ruled out by MRI Age-indeterminate lacunar infarct of the basal ganglia-ASA, Plavix for 21 days then stop ASA and resume Plavix thereafter -CT head showed small focus of hyperdensity within the left parietal lobe suspicious for small punctate hemorrhage. Also noted Lackner infarct in the basal ganglia on the left. --Patient's son, granddaughter believed that patient with not want any invasive intervention and would not want to be transferred to tertiary care center Family also confirmed that patient would wanted to be DNR even prior to recent events Family agrees with conservative management for now Neurology on case Start SC Heparin ER physician discussed with neurologist on-call at [facility] Dr. Almendarez who believes that CT head findings are incidental and would not explain the degree of somnolence. Also recommended no intervention warranted currently. Fall precautions PT/OT when appropriate Anxiety Depression Psychiatry on case H/O breast cancer S/P mastectomy H/O adenocarcinoma of lung Radiation pneumonitis as per records H/O PE Asthma/COPD Resume home medications as able DVT Px: SCDs Code Status DNI/DNR Labs checked ROS-No Headache, No Visual Changes, No Nausea, No Vomiting, No Fever, No Chills, No Neck Pain or Stiffness, No Chest Pain, No Palpitations, No SOB, No RUSSELL, No Cough, No Sputum, No Wheezing, No Abdominal Pain, No Diarrhea, No Hematemesis, No Hemoptysis, No Unexpected Weight Loss, No Flank pain, No Melena, No Hematochezia, No Frequency, No Urgency, No Burning, No Hematuria, No Rashes, No Diaphoresis. Appetite is Normal Physical Exam Gen-AAO x 3, NAD, Afebrile, Cooperative Head-NCAT, EOMI, PERRLA, Anicteric Sclera, No Posterior Pharyngeal Erythema Neck-Supple, No JVD, No Thyromegaly, No Masses, No LAD, No Bruits Lungs-Clear to Auscultation Bilaterally, No Rales, No Rhonchi, No Wheezing, No Crepitus Chest-No S4, +S1, +S2, No S3, No Murmurs, No Rubs, No Gallops, No Ectopy Abdomen-Soft, Bowel Sounds Present, Non Tender, Non Distended, No Hepatomegaly, No Splenomegaly, No Palpable Masses, No Rebound, No Rigidity, No Guarding Musculoskeletal-Full Range of Motion Bilaterally, No CVAT Extremities-No Cyanosis, No Clubbing, No Edema Nuero-Cranial Nerves II-XII grossly intact, Motor WNL, DTRs WNL, Strength WNL, Non Focal Psych-Flat Admission and Anticipated Discharge Date Admission Date: April 30, 2021 Subjective Patient seen very depressed, not as happy as yesterday Results & Data Results & Data ([facility]) Vital Signs (Past 12 Hours) Vital Signs Temp Pulse Pulse Resp BP Pulse Ox Pulse Ox 05/03/21 06:48 36.7 C 89 19 134/73 92 05/03/21 03:32 36.7 C 97 H 18 151/85 H 97 05/03/21 02:01 142/78 H 05/02/21 23:27 36.7 C 108 H 20 176/91 H 99 05/02/21 22:19 109 H 05/02/21 20:00 98 05/02/21 19:32 36.8 C 110 H 18 148/82 H 98 (1) Intentional overdose Encounter type: initial encounter Qualified Code(s): T50.902A - Poisoning by unspecified drugs, medicaments and biological substances, intentional self-harm, initial encounter
[2021-05-03 07:03] LABS: Hematocrit (blood only) 38.2 % (37-47); Hemoglobin 13.2 g/dL (12.0-16.0); Mean Corpuscular Hemoglobin 30.6 pg (25-34); Mean Corpuscular Hgb Conc 34.6 g/dL (32-36); Mean Corpuscular Volume 88.4 fL (80-100); Mean Platelet Volume 10.6 fL (7.4-10.4); Platelet Count 226 K/uL (130-400); RDW Coefficient of Variation 14.3 % (11.5-14.5); RDW Standard Deviation 46.6 fL (36.4-46.3); Red Blood Count 4.32 M/uL (4.2-5.4); White Blood Count 5.85 K/uL (4.8-10.8)
--- NOTE | 2021-05-03 07:04 | Electrocardiogram Report ---
Test Reason : Blood Pressure : / mmHG Vent. Rate : 128 BPM Atrial Rate : 128 BPM P-R Int : 144 ms QRS Dur : 094 ms QT Int : 316 ms P-R-T Axes : 083 095 070 degrees QTc Int : 461 ms Sinus tachycardia Possible Left atrial enlargement Incomplete right bundle branch block Possible Right ventricular hypertrophy Abnormal ECG When compared with ECG of 01-MAY-2021 06:37, Premature atrial complexes are no longer Present Vent. rate has increased BY 42 BPM Incomplete right bundle branch block is now Present Confirmed by Glenn Bragg ([id number]) on 05/03/2021 7:04:39 AM Referred By: REFERRED SELF Confirmed By:Glenn Bragg
[2021-05-03 07:41] LABS: Calcium 8.5 mg/dl (8.5-10.1); Creatinine Clr Calc Pharmacy 59.5 ml/min; Est GFR (African American) 96.5 ml/min; Est GFR (Non-African American) 83.2 ml/min
[2021-05-03] MEDS: CLOPIDOGREL BISULFATE 75 MG TAB PO SCH (08:12)
[2021-05-03] MEDS: ASPIRIN 81 MG ECTAB PO SCH (08:13)
[2021-05-03] MEDS: UREA (UREA-NA) 15 GM PACK PO SCH ×2 (08:14→20:45)
[2021-05-03] MEDS ORDERED: OPTIRAY 320 125ml IV ONE (10:10)
--- NOTE | 2021-05-03 10:48 | CT Scan Report ---
CHEST CTA for PULMONARY ARTERIES CT DOSE: 242.43 mGy.cm HISTORY: Shortness of breath. Assess for pulmonary embolus. TECHNIQUE: Multiaxial CT images of the chest were performed following the intravenous administration of contrast to evaluate the pulmonary arteries. Maximal intensity projection images were also obtaine d. A dose lowering technique was utilized adhering to the principles of ALARA. COMPARISON STUDY: Chest CT 09/10/2020. FINDINGS: Limited views of the upper abdomen demonstrate a few punctate calcified granulomas within t he spleen and a 1 cm fat-containing lesion either within or adjacent to the right hepatic dome. This favors a benign lipoma. No pleural or pericardial effusions. The thyroid gland enhances normally. Neris or left mastectomy again noted. No mediastinal or hilar lymphadenopathy. The heart is normal in size. Normal caliber esophagus. Mild calcified plaque within the normal caliber thoracic aorta. Dense mitr al annulus calcifications are again noted. A few calcified left hilar lymph nodes. Bilateral lower lo be subsegmental pulmonary arteries are nondiagnostic due to the respiratory motion artifact. The gomez ining pulmonary arteries show no filling defects to suggest a pulmonary embolus. Scattered calcified granulomas again noted within the left lung. Progressive bandlike consolidation within the right lung apex. This is nonspecific but favors post radiation pneumonitis. Small cluster of tree-in-bud nodula r opacities within the right upper lobe best seen on image 183 have slightly improved. Linear groundg lass density within the left upper lobe posteriorly has also resolved. A few small patchy density at the lung bases are nonspecific but favor atelectasis. A subtle 7 mm groundglass nodule within the rig ht lower lobe in image 135 remains unchanged. IMPRESSION: 1. No evidence for pulmonary embolus. 2. Interval improvement in the small cluster of tree-in-bud nodular opacities within the right upper lobe. The left upper lobe groundglass density has resolved in the interval. 3. Progressive consolidation involving the right apical opacity. This favors post radiation pneumonit is. 4. No change in the 7 mm groundglass nodule within the right lower lobe. One year chest CT follow-up recommended to ensure stability. 5. No evidence for metastatic disease within the chest. ACT 112: Negative or not required by law. Electronically signed by: Eulalio Pinon M.D. 05/03/2021 10:47 AM
[2021-05-03] MEDS: HEPARIN SOD 5,000 UNIT/0.5 ML VIAL SQ SCH ×2 (10:56→20:19)
[2021-05-03] MEDS ORDERED: MELATONIN 3 MG TAB PO PRN (14:18)
--- NOTE | 2021-05-03 14:18 | Psychiatric Progress Note ---
Date of Service May 03, 2021 Impression / Recommendations Impression 89 yo with recent of of 70 years with worsening depression and impulsive suicide attempt of lorazepam resulting in ICU admission. Diagnostically consistent with unspecified depression-complicated bereavement versus MDD. While attempt was impulsive concerning that she wrote suicide note, had no help seeking behaviors and took plenty of medication for potential lethality. Remarkably does not seem to be presenting with encephalopathy though remains somnolent due to lorazepam ingestion. Acute risk of self-harm remains elevated and high given suicide attempt requiring medical admission, major depressive symptoms, history of prior attempts, impulsivity. Given elevated risk of harm to self if she asks to leave would meet 302 criteria. Once medically clear will discuss treatment options: inpt psychiatric versus outpatient with additional support and safety planning. 05/03/21: No new recommendations. Remains high risk given ongoing depression and regrets surviving suicide attempt. Once medically clear will explore treatment options, if she remains in need of 1:1 assistance for ambulation will likely require specialized geriatric psychiatry inpatient unit. Persisting hyponatremia limiting medication options. Will order melatonin for sleep. -Psych will continue to follow -Continue 1-on-1 for risk of harm to self -melatonin 3mg qhs prn for insomnia -Do not discharge or allow to leave AMA -Hold psych medications for now -Once medically cleared will discuss treatment options -psych liason spoke with pt's son and will keep family updated re: psychiatric treatment options once medically clear (1) Suicide attempt: (2) Depression, unspecified: see above Risk Factors Assessment Do You Have Access To A Gun?: No Interval History Identifying Information 89 yo woman with a history of cancer, HTN, asthma/COPD, CVA with lacunar infarct, and depression admitted medically for intentional suicide attempt via overdose. Psychiatry was consulted for recommendations. Chief Complaint "I'm down". Review of Systems Notes Difficulty with sleep, denies any chest pain today Subjective Subjective Patient was seen & assessed and interval progress reviewed. Sandrita reports ongoing depressed mood with periods close to tearfulness as we discuss impact of her grief. She continues to have passive SI wishing she was and continues to regret surviving the attempt. Remains hopeless. Does smile when asked about option for inpt psychiatric treatment once medically stable to which she states "that would be wonderful". 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 Physical Exam Psychiatric Orientation: alert and oriented x 3 Apperance: appropriately dressed and appropriately groomed Eye Contact: + fair eye contact Motor Behavior: no abnormal motor movements Speech: + abnormal rate/rhythm/volume of speech (soft, brief) Affect: + depressed affect and + flat affect Mood: + depressed mood Thought Process: goal directed thought process Thought Content: reality based without delusions Suicidal Thoughts: denies suicidal plan and denies suicidal intent; + reports suicidal thoughts (passive SI and regrets surviving attempt) Homicidal Thoughts: denies homicidal thoughts Hallucinations: no auditory hallucinations and no visual hallucinations Cognition: recent memory grossly intact, remote memory grossly intact, attention grossly intact and language grossly intact Estimated Intelligence: consistent with education level Insight: + fair insight Judgement: + fair judgement Vital Signs (Past 24 Hours) Last Vital Signs Temp 36.6 C 05/03/21 11:07 Pulse 94 H 05/03/21 11:07 Resp 16 05/03/21 11:07 BP 150/87 H 05/03/21 11:07 Pulse Ox 96 05/03/21 11:07 Results & Data ([facility]) Laboratory Results Laboratory Results - last 24 hr 05/02/21 05/02/21 05/03/21 13:46 19:57 02:34 WBC RBC Hgb Hct MCV MCH MCHC RDW Std Deviation RDW Coeff of [place] Plt Count MPV Sodium Potassium Chloride Carbon Dioxide Anion Gap BUN Creatinine Est Cr Clr Drug Dosing Est GFR ( Amer) Est GFR (Non-Af Amer) BUN/Creatinine Ratio Glucose Calcium Troponin I < 0.03 0.03 < 0.03 05/03/21 05/03/21 06:48 06:48 WBC 5.85 RBC 4.32 Hgb 13.2 Hct 38.2 MCV 88.4 MCH 30.6 MCHC 34.6 RDW Std Deviation 46.6 H RDW Coeff of [place] 14.3 Plt Count 226 MPV 10.6 H Sodium 131 L Potassium 4.0 Chloride 99 Carbon Dioxide 23 Anion Gap 9 BUN 28 H Creatinine 0.56 L Est Cr Clr Drug Dosing 59.5 Est GFR ( Amer) 96.5 Est GFR (Non-Af Amer) 83.2 BUN/Creatinine Ratio 50.0 H Glucose 101 H Calcium 8.5 Troponin I Current Inpatient Medications Current Inpatient Medications: Current Inpatient Medications Acetaminophen (Acetaminophen 325 Mg Tab) 650 mg PO Q4H PRN PRN Reason: Pain or Fever Stop: 05/30/21 18:46 Aspirin ([facility]in 81 Mg [facility]ctab) [facility] Stop: 05/31/21 12:14 Last Admin: 05/03/21 08:13 Dose: 81 mg Documented by: Clopidogrel Bisulfate (Clopidogrel Bisulfate 75 Mg Tab) 75 mg PO [facility] Stop: 05/31/21 12:14 Last Admin: 05/03/21 08:12 Dose: 75 mg Documented by: Heparin Sodium (Porcine) (Heparin Sod 5,000 Unit/0.5 Ml Vial) 5,000 units SQ Q12 [facility] Stop: 06/02/21 08:59 Last Admin: 05/03/21 10:56 Dose: 5,000 units Documented by: Ceftriaxone Sodium 1,000 mg/ (Dextrose) 50 mls @ 100 mls/hr IV Q24H [facility]; Protocol Stop: 05/05/21 19:29 Last Infusion: 05/02/21 20:57 Dose: Infused Documented by: Morphine Sulfate (Morphine Sulfate 2 Mg/Ml Carp) 2 mg IV Q4H PRN PRN Reason: Anxiety/Agitation Stop: 05/16/21 15:15 Last Admin: 05/02/21 15:36 Dose: 2 mg Documented by: Urea (Urea (Urea-Na) 15 Gm Pack) 15 gm PO BID [facility] Stop: 06/01/21 08:59 Last Admin: 05/03/21 08:14 Dose: 15 gm Documented by:
[2021-05-03] MEDS: cefTRIAXone SODIUM 1,000 MG in DEXTROSE 5% 50 ML IV SCH (20:19)
[2021-05-04 06:45] LABS: Hematocrit (blood only) 39.8 % (37-47); Hemoglobin 13.9 g/dL (12.0-16.0); Mean Corpuscular Hemoglobin 30.6 pg (25-34); Mean Corpuscular Hgb Conc 34.9 g/dL (32-36); Mean Corpuscular Volume 87.7 fL (80-100); Mean Platelet Volume 10.8 fL (7.4-10.4); Platelet Count 246 K/uL (130-400); RDW Coefficient of Variation 14.5 % (11.5-14.5); RDW Standard Deviation 46.6 fL (36.4-46.3); Red Blood Count 4.54 M/uL (4.2-5.4); White Blood Count 4.83 K/uL (4.8-10.8)
[2021-05-04 07:02] LABS: BUN Creatinine Ratio 52.8 (10-20); Calcium 9.7 mg/dl (8.5-10.1); Creatinine Clr Calc Pharmacy 63.2 ml/min; Est GFR (African American) 98.3 ml/min; Est GFR (Non-African American) 84.8 ml/min
[2021-05-04] MEDS: HEPARIN SOD 5,000 UNIT/0.5 ML VIAL SQ SCH ×2 (07:44→19:59)
[2021-05-04] MEDS: ASPIRIN 81 MG ECTAB PO SCH (07:44)
[2021-05-04] MEDS: CLOPIDOGREL BISULFATE 75 MG TAB PO SCH (07:44)
[2021-05-04] MEDS: UREA (UREA-NA) 15 GM PACK PO SCH ×2 (07:45→19:51)
--- NOTE | 2021-05-04 09:17 | Discharge Summary ---
Date of Service May 04, 2021 Admission HPI Per Admitting Provider Patient is an 89-year-old female with history of anxiety, depression, dyslipidemia, rosacea, H/O breast cancer S/P left mastectomy, H/O PE currently not on any anticoagulation, asthma, GERD, lumbar spinal stenosis, neuropathy, Adenocarcinoma of lung, Radiation Pneumonitis and other medical problems was brought in by family for evaluation of a suspected suicidal attempt. Patient currently is somnolent and is unable to provide any history. Most of the history is obtained from patient's son at bedside, ER physician and old records. Patient lives by herself and her family lives near by her. Patient was found unconscious by family and thought to have consumed about 40 tablets of lorazepam in an attempt to commit suicide. Patient's Son informs that, she has been depressed since she lost her 2 months ago. She visited her PCP 2 days ago and expressed that she has not been able to cry and was not sure if she grieved. She has some degree of anxiety and has been on lorazepam 1 mg twice a day for many years. She also takes venlafaxine 75 mg daily. She reported having poor sleep and has not been able to do anything with her friends lately. Patient son informed that she attempted a suicidal attempt in the past as well. Patient is somnolent but awakes to painful stimulus and opens eyes. She was hypoxic in 80s and was placed on 2 L supplemental oxygen while in ED. Son believes that she took lorazepam about 1:30 AM this morning. She also wrote a letter stating that she can could not take it anymore. Admission Exam Per Admitting Provider General Appearance:Moderately built and nourished, no apparent distress Head: normocephalic, Atraumatic Eyes: normal inspection Neck: supple, Trachea midline Respiratory/Chest: Normal breath sounds, CTA, No accessory muscle use, S/P Left mastectomy Cardiovascular: S1, S2, No murmur Abdomen/GI:Soft, Non tender, Bowel sounds present Extremities/Musculoskeletal:normal inspection, no edema Neurologic/Psych: Somnolent, unable to perform complete neurological exam. Skin: normal color, warm Principal Diagnosis Intentional drug overdose Suicidal attempt Hyponatremia UTI Chest Pain Lacunar Infarct Anxiety Depression H/O breast cancer H/O adenocarcinoma of lung Radiation pneumonitis H/O PE Asthma/COPD Discharge Data Allergies Allergy/AdvReac Type Severity Reaction Status Date / Time bee venom protein (honey bee) Allergy Severe ANAPHYLAXIS Verified 10/01/20 10:40 Consultations 04/30/21 15:34 ED Decision to Admit Stat 04/30/21 16:31 Consult Neurology Routine 04/30/21 18:47 Consult Psychiatry Routine Consult Psychiatry Routine 04/30/21 19:58 Consult Behavioral Health Liaison Routine Ordered Studies 04/30/21 09:58 CT head/brain wo con Stat 04/30/21 13:02 CT head/brain wo con Urgent 05/01/21 08:00 MR brain wo/w con Routine 05/01/21 12:13 CT angio head w con Routine CT angio neck with con Routine 05/03/21 06:55 CT angio chest PE protocol Routine Current Diagnoses Depression, unspecified (04/30/21) Suicide attempt, initial encounter (04/30/21) Poisoning by unspecified drugs, medicaments and biological substances, intentional self-harm, initial encounter (04/30/21) Allergies bee venom protein (honey bee) Allergy (Severe, Verified 10/01/20 10:40) ANAPHYLAXIS Height/Weight/Isolation Height 5 ft 4.75 in Weight 54.6 kg Chemistry 05/03/21 05/04/21 06:48 06:28 Sodium 131 L 133 L Potassium 4.0 4.0 Chloride 99 101 Carbon Dioxide 23 25 Anion Gap 9 7 BUN 28 H 28 H Creatinine 0.56 L 0.53 L Glucose 101 H 91 Microbiology 04/30/21 10:20 Urine,Straight Cath Urine Culture - Final Escherichia coli Hospital Course (1) Intentional overdose: Intentional drug overdose Suicidal attempt Suspected to have consumed about 40 tablets of Lorazepam Drug Screen negative: Likely falsely negative secondary to poor cross-reactivity of lorazepam with Assay Contacted poison control Poison control recommends conservative management Psychiatry on case Push Diet Hyponatremia Likely secondary to poor oral intake Sodium 133 Urea, Diet TSH Normal Suspected UTI Rocephin Chest Pain-EKG ST, Trops are negative, HR 75 Suspected Intracranial hemorrhage-Ruled out by MRI, +Lacunar Infarct Age-indeterminate lacunar infarct of the basal ganglia-ASA, Plavix for 21 days then stop ASA and resume Plavix thereafter -CT head showed small focus of hyperdensity within the left parietal lobe suspicious for small punctate hemorrhage. Also noted Lackner infarct in the basal ganglia on the left. --Patient's son, granddaughter believed that patient with not want any invasive intervention and would not want to be transferred to tertiary care center Family also confirmed that patient would wanted to be DNR even prior to recent events Family agrees with conservative management for now Neurology on case SC Heparin ER physician discussed with neurologist on-call at [facility] Dr. Almendarez who believes that CT head findings are incidental and would not explain the degree of somnolence. Also recommended no intervention warranted currently. Fall precautions PT/OT when appropriate Anxiety Depression Psychiatry on case H/O breast cancer S/P mastectomy H/O adenocarcinoma of lung Radiation pneumonitis as per records H/O PE Asthma/COPD Resume home medications as able DVT Px: SCDs Code Status DNI/DNR Labs checked Medically Cleared for Inpatient Psych, She can walk without assistance ROS-No Headache, No Visual Changes, No Nausea, No Vomiting, No Fever, No Chills, No Neck Pain or Stiffness, No Chest Pain, No Palpitations, No SOB, No RUSSELL, No Cough, No Sputum, No Wheezing, No Abdominal Pain, No Diarrhea, No Hematemesis, No Hemoptysis, No Unexpected Weight Loss, No Flank pain, No Melena, No Hematochezia, No Frequency, No Urgency, No Burning, No Hematuria, No Rashes, No Diaphoresis. Appetite is Normal Physical Exam Gen-AAO x 3, NAD, Afebrile, Cooperative Head-NCAT, EOMI, PERRLA, Anicteric Sclera, No Posterior Pharyngeal Erythema Neck-Supple, No JVD, No Thyromegaly, No Masses, No LAD, No Bruits Lungs-Clear to Auscultation Bilaterally, No Rales, No Rhonchi, No Wheezing, No Crepitus Chest-No S4, +S1, +S2, No S3, No Murmurs, No Rubs, No Gallops, No Ectopy Abdomen-Soft, Bowel Sounds Present, Non Tender, Non Distended, No Hepatomegaly, No Splenomegaly, No Palpable Masses, No Rebound, No Rigidity, No Guarding Musculoskeletal-Full Range of Motion Bilaterally, No CVAT Extremities-No Cyanosis, No Clubbing, No Edema Nuero-Cranial Nerves II-XII grossly intact, Motor WNL, DTRs WNL, Strength WNL, Non Focal Psych-Normal Mood Total Time Total Time Spent Total Time Spent (In Minutes): 45 mins Total Time Includes: Examination of the Patient, Discharge Planning, Medication Reconciliation and Communication With Other Providers Discharge Plan Discharge Items Patient Disposition: Transfer Behavioral Health Fac Reason For Visit: OVERDOSE, MHID Discharge Diagnosis: Intentional drug overdose Suicidal attempt Hyponatremia UTI Chest Pain Lacunar Infarct Anxiety Depression H/O breast cancer H/O adenocarcinoma of lung Radiation pneumonitis H/O PE Asthma/COPD Condition on Discharge: Good Activity: Resume your previous activity Lifting: Gradually increase as tolerated Bathing: No limitations Exercise/Sports: Gradually increase as tolerated Weightbearing: Full weightbearing Non-emergency contact: Primary Care Provider and Psychiatrist Follow-up/Referrals: Bear Rodriguez MD [Primary Care Provider] - Diet: Regular Addtl Attending Provider Instructions: Follow up with Psychiatry Pending Studies at Discharge: No Stand-Alone Forms: My [facility] Skilled Items DNR: Yes Lines: None Medications and DC Order Prescriptions: New clopidogrel 75 mg Tablet 75 mg PO QAM Qty: 30 RF: 0 aspirin 81 mg Tablet,Delayed Release (Dr/Ec) 81 mg PO QAM Qty: 21 RF: 0 Ure-Na 15 gram Powder In Packet 15 g PO BID Qty: 8 RF: 0 Continued Anoro Ellipta 62.5-25 mcg/actuation blister with device 1 inh inhalation DAILY Qty: 60 RF: 5 metronidazole 1 % gel 1 applic TOP DAILY RF: 0 losartan 25 mg Tablet 25 mg PO QAM RF: 0 calcium polycarbophil [Fiber Laxative (ca polycarbo)] 625 mg Tablet 1,250 mg PO DAILY RF: 0 lorazepam 1 mg Tablet 1 mg PO BID RF: 0 calcium carbonate-vitamin D3 [Calcium 600 + D(3)] 600 mg-5 mcg (200 unit) Tablet 1 tab PO UD RF: 0 triamcinolone acetonide 0.1 % Cream 1 applic TOPICAL BID RF: 0 omeprazole 20 mg Capsule,Delayed Release(Dr/Ec) 20 mg PO DAILY RF: 0 fluticasone propionate [Flonase] 50 mcg/actuation [place],Suspension 1 spray INTRANASAL Q12H RF: 0 loratadine 10 mg Tablet 10 mg PO DAILY RF: 0 melatonin 5 mg Tablet 5 mg PO HS RF: 0 omega 8-[id number]-fish oil [Fish Oil] 1,000 mg (120 mg-180 mg) Capsule 1 cap PO BID RF: 0 Stiolto Respimat 2.5-2.5 mcg/actuation Mist 2 puff INHALATION QAM RF: 0 montelukast 10 mg tablet 10 mg PO HS RF: 0 Discontinued venlafaxine [Effexor XR] 75 mg Capsule,Extended Release 24hr 75 mg PO BID RF: 0 aspirin [Aspir-81] 81 mg Tablet,Delayed Release (Dr/Ec) 81 mg PO DAILY RF: 0 Discharge Orders: Discharge Order (Routine); Ordered 05/04/21 Ordered By: José Antonio Floyd Admission Data Admit Date/Time: 04/30/21 16:04 Attending Provider: José Antonio Floyd Admit Provider: Viot Noble Primary Care Provider: Bear Rodriguez Other Providers: Kee Genao Erica K. ; Mulu Blackman ; Monik Sanderson ; George Romero ; Vito Noble
--- NOTE | 2021-05-04 09:40 | Hospitalist Progress Note ---
Date of Service May 04, 2021 Assessment & Plan (1) Intentional overdose: Plan: Intentional drug overdose Suicidal attempt Suspected to have consumed about 40 tablets of Lorazepam Drug Screen negative: Likely falsely negative secondary to poor cross-reactivity of lorazepam with Assay Contacted poison control Poison control recommends conservative management Psychiatry on case Push Diet Hyponatremia Likely secondary to poor oral intake Sodium 133 Urea, Diet TSH Normal Suspected UTI Rocephin Chest Pain-EKG ST, Trops are negative, HR 75 Suspected Intracranial hemorrhage-Ruled out by MRI, +Lacunar Infarct Age-indeterminate lacunar infarct of the basal ganglia-ASA, Plavix for 21 days then stop ASA and resume Plavix thereafter -CT head showed small focus of hyperdensity within the left parietal lobe suspicious for small punctate hemorrhage. Also noted Lackner infarct in the basal ganglia on the left. --Patient's son, granddaughter believed that patient with not want any invasive intervention and would not want to be transferred to tertiary care center Family also confirmed that patient would wanted to be DNR even prior to recent events Family agrees with conservative management for now Neurology on case SC Heparin ER physician discussed with neurologist on-call at [facility] Dr. Almendarez who believes that CT head findings are incidental and would not explain the degree of somnolence. Also recommended no intervention warranted currently. Fall precautions PT/OT when appropriate Anxiety Depression Psychiatry on case H/O breast cancer S/P mastectomy H/O adenocarcinoma of lung Radiation pneumonitis as per records H/O PE Asthma/COPD Resume home medications as able DVT Px: SCDs Code Status DNI/DNR Labs checked Medically Cleared for Inpatient Psych, She can walk without assistance ROS-No Headache, No Visual Changes, No Nausea, No Vomiting, No Fever, No Chills, No Neck Pain or Stiffness, No Chest Pain, No Palpitations, No SOB, No RUSSELL, No Cough, No Sputum, No Wheezing, No Abdominal Pain, No Diarrhea, No Hematemesis, No Hemoptysis, No Unexpected Weight Loss, No Flank pain, No Melena, No Hematochezia, No Frequency, No Urgency, No Burning, No Hematuria, No Rashes, No Diaphoresis. Appetite is Normal Physical Exam Gen-AAO x 3, NAD, Afebrile, Cooperative Head-NCAT, EOMI, PERRLA, Anicteric Sclera, No Posterior Pharyngeal Erythema Neck-Supple, No JVD, No Thyromegaly, No Masses, No LAD, No Bruits Lungs-Clear to Auscultation Bilaterally, No Rales, No Rhonchi, No Wheezing, No Crepitus Chest-No S4, +S1, +S2, No S3, No Murmurs, No Rubs, No Gallops, No Ectopy Abdomen-Soft, Bowel Sounds Present, Non Tender, Non Distended, No Hepatomegaly, No Splenomegaly, No Palpable Masses, No Rebound, No Rigidity, No Guarding Musculoskeletal-Full Range of Motion Bilaterally, No CVAT Extremities-No Cyanosis, No Clubbing, No Edema Nuero-Cranial Nerves II-XII grossly intact, Motor WNL, DTRs WNL, Strength WNL, Non Focal Psych-Normal Mood Admission and Anticipated Discharge Date Admission Date: April 30, 2021 Subjective Patient seen, happier today Results & Data Results & Data ([facility]) Vital Signs (Past 12 Hours) Vital Signs Temp Pulse Resp BP Pulse Ox 05/04/21 08:00 75 05/04/21 07:02 36.5 C 89 18 152/81 H 99 05/04/21 02:39 36.7 C 99 H 23 140/75 98 05/03/21 22:51 36.6 C 99 H 25 H 154/79 H 97 (1) Intentional overdose Encounter type: initial encounter Qualified Code(s): T50.902A - Poisoning by unspecified drugs, medicaments and biological substances, intentional self-harm, initial encounter
--- NOTE | 2021-05-04 10:23 | Psychiatric Progress Note ---
Date of Service May 04, 2021 Impression / Recommendations Impression 89 yo with recent of of 70 years with worsening depression and impulsive suicide attempt of lorazepam resulting in ICU admission. Diagnostically consistent with unspecified depression-complicated bereavement versus MDD. While attempt was impulsive concerning that she wrote suicide note, had no help seeking behaviors and took plenty of medication for potential lethality. Remarkably does not seem to be presenting with encephalopathy though remains somnolent due to lorazepam ingestion. Acute risk of self-harm remains elevated and high given suicide attempt requiring medical admission, major depressive symptoms, history of prior attempts, impulsivity. Given elevated risk of harm to self if she asks to leave would meet 302 criteria. Once medically clear will discuss treatment options: inpt psychiatric versus outpatient with additional support and safety planning. 05/04/21: Medically clear, reviewed with Dr. Floyd, including that sometimes medical clearance threshold for inpatient psychiatry varies. She is now ambulating without assistance per medical team. She agrees to voluntary inpatient psychiatric treatment, will begin making referrals. Remains high risk given ongoing depression and regrets surviving suicide attempt. Persisting hyponatremia limiting medication options. Has melatonin for sleep. Spoke with patient's son, Han, via phone to provide clinical update and discussion of treatment plan re: inpt and benefits/ differences between specialized geriatric units vs adult units. -Psych will continue to follow -Continue 1-on-1 for risk of harm to self -melatonin 3mg qhs for insomnia -Do not discharge or allow to leave AMA -Hold all other psych medications for now -Started referrals for geriatric inpatient psychiatry (1) Suicide attempt: (2) Depression, unspecified: see above Risk Factors Assessment Do You Have Access To A Gun?: No Interval History Identifying Information 89 yo woman with a history of cancer, HTN, asthma/COPD, CVA with lacunar infarct, and depression admitted medically for intentional suicide attempt via overdose. Psychiatry was consulted for recommendations. Chief Complaint "I'm still feeling down". Review of Systems Notes Awakenings overnight during sleep, eating more Subjective Subjective Patient was seen & assessed and interval progress reviewed. Sandrita is now medically cleared. She continues to endorse depressed mood and passive SI following suicide attempt. Continues to have sleep interruptions, awakening in middle of the night around 1-2am. Discussed inpatient psychiatric treatment which she is agreeable to, she agrees to begin placing referrals to outside geriatric psychiatric facilities and will continue to consider BHU at [facility] should appropriate bed become available. Sandrita appropriately asks some questions about what inpatient treatment is like which we review and she notes she may become homesick but remains agreeable to inpatient psych treatment. Also discussed treatment plan re: referrals with patient's son Han and his via phone. They are in agreement for sending referrals to closer geriatric psychiatry facilities and would still like to consider [facility] BHU adult unit if appropriate bed becomes available. Physical Exam Psychiatric Orientation: alert and oriented x 3 Apperance: appropriately dressed and appropriately groomed Eye Contact: good eye contact Motor Behavior: no abnormal motor movements Speech: normal rate/rhythm/volume of speech Affect: + depressed affect and + flat affect Mood: + depressed mood Thought Process: goal directed thought process Thought Content: reality based without delusions Suicidal Thoughts: denies suicidal plan and denies suicidal intent; + reports suicidal thoughts (passive SI and regrets surviving attempt) Homicidal Thoughts: denies homicidal thoughts Hallucinations: no auditory hallucinations and no visual hallucinations Cognition: recent memory grossly intact, remote memory grossly intact, attention grossly intact and language grossly intact Estimated Intelligence: consistent with education level Insight: + fair insight Judgement: + fair judgement Vital Signs (Past 24 Hours) Last Vital Signs Temp 36.5 C 05/04/21 07:02 Pulse 75 05/04/21 08:00 Resp 18 05/04/21 07:02 BP 152/81 H 05/04/21 07:02 Pulse Ox 99 05/04/21 07:02 Results & Data ([facility]) Laboratory Results Laboratory Results - last 24 hr 05/04/21 05/04/21 06:28 06:28 WBC 4.83 RBC 4.54 Hgb 13.9 Hct 39.8 MCV 87.7 MCH 30.6 MCHC 34.9 RDW Std Deviation 46.6 H RDW Coeff of [place] 14.5 Plt Count 246 MPV 10.8 H Sodium 133 L Potassium 4.0 Chloride 101 Carbon Dioxide 25 Anion Gap 7 BUN 28 H Creatinine 0.53 L Est Cr Clr Drug Dosing 63.2 Est GFR ( Amer) 98.3 Est GFR (Non-Af Amer) 84.8 BUN/Creatinine Ratio 52.8 H Glucose 91 Calcium 9.7 Current Inpatient Medications Current Inpatient Medications: Current Inpatient Medications Acetaminophen (Acetaminophen 325 Mg Tab) 650 mg PO Q4H PRN PRN Reason: Pain or Fever Stop: 05/30/21 18:46 Aspirin (Aspirin 81 Mg Ectab) 81 mg PO [facility] Stop: 05/31/21 12:14 Last Admin: 05/04/21 07:44 Dose: 81 mg Documented by: Clopidogrel Bisulfate (Clopidogrel Bisulfate 75 Mg Tab) [facility] Stop: 05/31/21 12:14 Last Admin: 05/04/21 07:44 Dose: 75 mg Documented by: Heparin Sodium (Porcine) (Heparin Sod 5,000 Unit/0.5 Ml Vial) 5,000 units SQ Q12 [facility] Stop: 06/02/21 08:59 Last Admin: 05/04/21 07:44 Dose: 5,000 units Documented by: Ceftriaxone Sodium 1,000 mg/ (Dextrose) 50 mls @ 100 mls/hr IV Q24H [facility]; Protocol Stop: 05/05/21 19:29 Last Infusion: 05/03/21 20:55 Dose: Infused Documented by: Melatonin (Melatonin 3 Mg Tab) 3 mg PO HS PRN PRN Reason: Sleep Stop: 06/02/21 14:17 Morphine Sulfate (Morphine Sulfate 2 Mg/Ml Carp) 2 mg IV Q4H PRN PRN Reason: Anxiety/Agitation Stop: 05/16/21 15:15 Last Admin: 05/02/21 15:36 Dose: 2 mg Documented by: Urea (Urea (Urea-Na) 15 Gm Pack) 15 gm PO BID [facility] Stop: 06/01/21 08:59 Last Admin: 05/04/21 07:45 Dose: 15 gm Documented by:
[2021-05-04] MEDS: cefTRIAXone SODIUM 1,000 MG in DEXTROSE 5% 50 ML IV SCH (19:50)
[2021-05-04] MEDS: MELATONIN 3 MG TAB PO SCH (21:10)
[2021-05-05] MEDS: MoRPHine SULFATE 2 MG/ML CARP IV PRN ×2 (00:47→10:03)
[2021-05-05] MEDS ORDERED: LORazepam 0.5 MG TAB PO STA (03:49)
[2021-05-05 06:59] LABS: Hematocrit (blood only) 38.6 % (37-47); Hemoglobin 13.5 g/dL (12.0-16.0); Mean Corpuscular Hemoglobin 30.7 pg (25-34); Mean Corpuscular Volume 87.7 fL (80-100); Mean Platelet Volume 10.7 fL (7.4-10.4); Platelet Count 280 K/uL (130-400); RDW Coefficient of Variation 14.3 % (11.5-14.5); RDW Standard Deviation 46.3 fL (36.4-46.3); White Blood Count 4.41 K/uL (4.8-10.8)
[2021-05-05 07:20] LABS: BUN Creatinine Ratio 57.1 (10-20); Calcium 8.9 mg/dl (8.5-10.1); Est GFR (African American) 100.8 ml/min; Potassium 3.9 mmol/L (3.5-5.1)
[2021-05-05] MEDS: ASPIRIN 81 MG ECTAB PO SCH (08:26)
[2021-05-05] MEDS: UREA (UREA-NA) 15 GM PACK PO SCH ×2 (08:26→20:32)
[2021-05-05] MEDS: HEPARIN SOD 5,000 UNIT/0.5 ML VIAL SQ SCH ×2 (08:27→20:32)
[2021-05-05] MEDS: CLOPIDOGREL BISULFATE 75 MG TAB PO SCH (08:27)
--- NOTE | 2021-05-05 10:39 | Hospitalist Progress Note ---
Date of Service May 05, 2021 Assessment & Plan (1) Intentional overdose: Plan: Intentional drug overdose Suicidal attempt Suspected to have consumed about 40 tablets of Lorazepam Drug Screen negative: Likely falsely negative secondary to poor cross-reactivity of lorazepam with Assay Poison control was contacted recommended conservative management Psychiatry on board recommended inpatient treatment Continue 1-on-1 for risk of harm to self Melatonin 3mg qhs for insomnia and Continue to Hold all other psych medications for now as per Psych Do not discharge or allow to leave AMA Continue to Hold all other psych medications for now Hyponatremia Likely secondary to poor oral intake Sodium 131 today Continue Urea BID Will need to continue encourage her to increase PO intake Continue monitor BMP UTI Urine cx positive for Ecoli Currently on IV Rocephin, plan to complete course of the abx today Chest Pain CTA showed no evidence of PE. Interval improvement in the small cluster of tree-in-bud nodular opacities within the right upper lobe. EKG showed no ischemic ST changes Troponin x4 negative ECHO showed no wall motion abnormality resolved Suspected Intracranial hemorrhage-Ruled out by MRI, +Lacunar Infarct CT head showed small focus of hyperdensity within the left parietal lobe suspicious for small punctate hemorrhage. Also noted Lackner infarct in the basal ganglia on the left. MRI showed There is restricted diffusion, edema, enhancement in the right posterior internal capsule with minimal rightward midline shift. Findings are compatible with acute lacunar infarct. No hemorrhage is seen to correspond to hyperdensity seen in the prior CT head. --Patient's son, granddaughter believed that patient with not want any invasive intervention and would not want to be transferred to tertiary care center as per previous hospitalist team Family also confirmed that patient would wanted to be DNR even prior to recent events Family agrees with conservative management for now Neurology on board recommended plavix and aspirin for 21 days then stop ASA and continue Plavix thereafter Fall precautions PT/OT when appropriate Follow up with neurology in 3 to 4 weeks Anxiety Depression Psych on board Continue follow up with psych outpatient Sinus tachycardia Mostly due to anxiety/hospital setting Asymptomatic Consider to add a low dose beta sourav if no improvement H/O breast cancer S/P mastectomy H/O adenocarcinoma of lung Radiation pneumonitis as per records Asthma/COPD Resume home medications as able DVT Px SCDs Code Status DNI/DNR Disposition Ok from medical standpoint to discharge to Geriatric psych Admission and Anticipated Discharge Date Admission Date: April 30, 2021 Subjective Pt was seen and examined for follow up of suicide attempt Lying in bed with no acute distress watching TV with 1 to 1 sitter Pt said that she feels ok She denies any suicide thought currently Denies any chest pain, palpitation, dizziness, hallucination and SOB Review of Systems Review of Systems: All systems reviewed & are unremarkable except as noted in Subjective Physical Exam Physical Exam: General- No acute distress Head- atraumatic Eyes- PERRL, EOMI, ENT- oropharynx clear Neck- supple, no JVD Lungs- clear to auscultation Heart- regular rhythm; no murmur Abdomen- normal bowel sounds, soft, nontender Extremities- no calf tenderness Neuro- alert, oriented x 3; PERRL, EOMI; no facial palsy; no dysarthria Skin- warm & dry Results & Data Results & Data ([facility]) Vital Signs (Past 12 Hours) Vital Signs Temp Pulse Pulse Resp BP Pulse Ox 05/05/21 07:59 37.4 C 92 H 17 166/70 H 99 05/05/21 03:25 36.6 C 93 H 23 176/77 H 99 05/04/21 23:30 87 05/04/21 22:43 36.6 C 96 H 19 160/85 H 99 (1) Intentional overdose Encounter type: initial encounter Qualified Code(s): T50.902A - Poisoning by unspecified drugs, medicaments and biological substances, intentional self-harm, initial encounter
--- NOTE | 2021-05-05 14:31 | Psychiatric Progress Note ---
Date of Service May 05, 2021 Impression / Recommendations Impression 89 yo with recent of of 70 years with worsening depression and impulsive suicide attempt of lorazepam resulting in ICU admission. Diagnostically consistent with unspecified depression-complicated bereavement versus MDD. While attempt was impulsive concerning that she wrote suicide note, had no help seeking behaviors and took plenty of medication for potential lethality. Remarkably does not seem to be presenting with encephalopathy though remains somnolent due to lorazepam ingestion. Acute risk of self-harm remains elevated and high given suicide attempt requiring medical admission, major depressive symptoms, history of prior attempts, impulsivity. Given elevated risk of harm to self if she asks to leave would meet 302 criteria. Once medically clear will discuss treatment options: inpt psychiatric versus outpatient with additional support and safety planning. 05/05/21: Medically clear, remains voluntary for psychiatric inpatient treatment. Referrals placed. -Psych will continue to follow -Continue 1-on-1 for risk of harm to self -melatonin 3mg qhs for insomnia -Do not discharge or allow to leave AMA -Hold all other psych medications for now -Referrals placed for geriatric inpatient psychiatry (1) Suicide attempt: (2) Depression, unspecified: see above Risk Factors Assessment Do You Have Access To A Gun?: No Interval History Identifying Information 89 yo woman with a history of cancer, HTN, asthma/COPD, CVA with lacunar infarct, and depression admitted medically for intentional suicide attempt via overdose. Psychiatry was consulted for recommendations. Chief Complaint "I really don't know". Review of Systems Notes Stable appetite, decreased sleep Subjective Subjective Patient was seen & assessed and interval progress reviewed. 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 No physical pain or discomfort. Feels stable and enjoying walking around more. Denies active SI but continues to feel hopeless at times and somewhat ambivalent about surviving suicide attempt. Ongoing grief. Physical Exam Psychiatric Orientation: alert and oriented x 3 Apperance: appropriately dressed and appropriately groomed Eye Contact: good eye contact Motor Behavior: no abnormal motor movements Speech: normal rate/rhythm/volume of speech Affect: + depressed affect Mood: + depressed mood Thought Process: goal directed thought process Thought Content: reality based without delusions Suicidal Thoughts: denies suicidal plan and denies suicidal intent; + reports suicidal thoughts (ambivalence about surviving attempt) Homicidal Thoughts: denies homicidal thoughts Hallucinations: no auditory hallucinations and no visual hallucinations Cognition: recent memory grossly intact, remote memory grossly intact, attention grossly intact and language grossly intact Estimated Intelligence: consistent with education level Insight: + fair insight Judgement: + fair judgement Vital Signs (Past 24 Hours) Last Vital Signs Temp 36.6 C 05/05/21 12:00 Pulse 96 H 05/05/21 12:00 Resp 18 05/05/21 12:00 BP 164/79 H 05/05/21 12:00 Pulse Ox 97 05/05/21 12:00 Results & Data ([facility]) Laboratory Results Laboratory Results - last 24 hr 05/05/21 05/05/21 06:36 06:36 WBC 4.41 L RBC 4.40 Hgb 13.5 Hct 38.6 MCV 87.7 MCH 30.7 MCHC 35.0 RDW Std Deviation 46.3 RDW Coeff of [place] 14.3 Plt Count 280 MPV 10.7 H Sodium 131 L Potassium 3.9 Chloride 99 Carbon Dioxide 25 Anion Gap 7 BUN 28 H Creatinine 0.49 L Est Cr Clr Drug Dosing 66.0 Est GFR ( Amer) 100.8 Est GFR (Non-Af Amer) 87.0 BUN/Creatinine Ratio 57.1 H Glucose 93 Calcium 8.9 Current Inpatient Medications Current Inpatient Medications: Current Inpatient Medications Acetaminophen (Acetaminophen 325 Mg Tab) 650 mg PO Q4H PRN PRN Reason: Pain or Fever Stop: 05/30/21 18:46 Aspirin (Aspirin 81 Mg Ectab) 81 mg PO [facility] Stop: 05/31/21 12:14 Last Admin: 05/05/21 08:26 Dose: 81 mg Documented by: Clopidogrel Bisulfate (Clopidogrel Bisulfate 75 Mg Tab) 75 mg PO [facility] Stop: 05/31/21 12:14 Last Admin: 05/05/21 08:27 Dose: 75 mg Documented by: Heparin Sodium (Porcine) (Heparin Sod 5,000 Unit/0.5 Ml Vial) 5,000 units SQ Q12 [facility] Stop: 06/02/21 08:59 Last Admin: 05/05/21 08:27 Dose: 5,000 units Documented by: Ceftriaxone Sodium 1,000 mg/ (Dextrose) 50 mls @ 100 mls/hr IV Q24H [facility]; Protocol Stop: 05/05/21 19:29 Last Infusion: 05/04/21 20:46 Dose: Infused Documented by: Melatonin (Melatonin 3 Mg Tab) 3 mg PO HS [facility] Stop: 06/03/21 20:59 Last Admin: 05/04/21 21:10 Dose: 3 mg Documented by: Morphine Sulfate (Morphine Sulfate 2 Mg/Ml Carp) 2 mg IV Q4H PRN PRN Reason: Anxiety/Agitation Stop: 05/16/21 15:15 Last Admin: 05/05/21 10:03 Dose: 2 mg Documented by: Urea (Urea (Urea-Na) 15 Gm Pack) 15 gm PO BID [facility] Stop: 06/01/21 08:59 Last Admin: 05/05/21 08:26 Dose: 15 gm Documented by:
[2021-05-05] MEDS ORDERED: LORazepam 0.5 MG TAB PO PRN (19:10)
[2021-05-05] MEDS: MELATONIN 3 MG TAB PO SCH (21:40)
[2021-05-06] MEDS: CLOPIDOGREL BISULFATE 75 MG TAB PO SCH (07:54)
[2021-05-06] MEDS: ASPIRIN 81 MG ECTAB PO SCH (07:54)
[2021-05-06] MEDS: HEPARIN SOD 5,000 UNIT/0.5 ML VIAL SQ SCH (07:55)
[2021-05-06] MEDS: UREA (UREA-NA) 15 GM PACK PO SCH (07:56)
--- NOTE | 2021-05-06 12:20 | Discharge Summary ---
Date of Service May 06, 2021 Admission HPI Per Admitting Provider Patient is an 89-year-old female with history of anxiety, depression, dyslipidemia, rosacea, H/O breast cancer S/P left mastectomy, H/O PE currently not on any anticoagulation, asthma, GERD, lumbar spinal stenosis, neuropathy, Adenocarcinoma of lung, Radiation Pneumonitis and other medical problems was brought in by family for evaluation of a suspected suicidal attempt. Patient currently is somnolent and is unable to provide any history. Most of the history is obtained from patient's son at bedside, ER physician and old records. Patient lives by herself and her family lives near by her. Patient was found unconscious by family and thought to have consumed about 40 tablets of lorazepam in an attempt to commit suicide. Patient's Son informs that, she has been depressed since she lost her 2 months ago. She visited her PCP 2 days ago and expressed that she has not been able to cry and was not sure if she grieved. She has some degree of anxiety and has been on lorazepam 1 mg twice a day for many years. She also takes venlafaxine 75 mg daily. She reported having poor sleep and has not been able to do anything with her friends lately. Patient son informed that she attempted a suicidal attempt in the past as well. Patient is somnolent but awakes to painful stimulus and opens eyes. She was hypoxic in 80s and was placed on 2 L supplemental oxygen while in ED. Son believes that she took lorazepam about 1:30 AM this morning. She also wrote a letter stating that she can could not take it anymore. Admission Exam Per Admitting Provider General- No acute distress Head- atraumatic Eyes- PERRL, EOMI, ENT- oropharynx clear Neck- supple, no JVD Lungs- clear to auscultation Heart- regular rhythm; no murmur Abdomen- normal bowel sounds, soft, nontender Extremities- no calf tenderness Neuro- alert, oriented x 3; PERRL, EOMI; no facial palsy; no dysarthria Skin- warm & dry Principal Diagnosis Intentional drug overdose Suicidal attempt Hyponatremia UTI Chest Pain Lacunar Infarct Anxiety Depression H/O breast cancer H/O adenocarcinoma of lung Radiation pneumonitis H/O PE Asthma/COPD Discharge Exam General- No acute distress Head- atraumatic Eyes- PERRL, EOMI, ENT- oropharynx clear Neck- supple, no JVD Lungs- clear to auscultation Heart- regular rhythm; no murmur Abdomen- normal bowel sounds, soft, nontender Extremities- no calf tenderness Neuro- alert, oriented x 3; PERRL, EOMI; no facial palsy; no dysarthria Skin- warm & dry Discharge Data Allergies Allergy/AdvReac Type Severity Reaction Status Date / Time bee venom protein (honey bee) Allergy Severe ANAPHYLAXIS Verified 10/01/20 10:40 Consultations 04/30/21 15:34 ED Decision to Admit Stat 04/30/21 16:31 Consult Neurology Routine 04/30/21 18:47 Consult Psychiatry Routine Consult Psychiatry Routine 04/30/21 19:58 Consult Behavioral Health Liaison Routine CHEST CTA for PULMONARY ARTERIES CT DOSE: 242.43 mGy.cm HISTORY: Shortness of breath. Assess for pulmonary embolus. TECHNIQUE: Multiaxial CT images of the chest were performed following the intravenous administration of contrast to evaluate the pulmonary arteries. Maximal intensity projection images were also obtained. A dose lowering technique was utilized adhering to the principles of ALARA. COMPARISON STUDY: Chest CT 09/10/2020. FINDINGS: Limited views of the upper abdomen demonstrate a few punctate calcified granulomas within the spleen and a 1 cm fat-containing lesion either within or adjacent to the right hepatic dome. This favors a benign lipoma. No pleural or pericardial effusions. The thyroid gland enhances normally. Prior left mastectomy again noted. No mediastinal or hilar lymphadenopathy. The heart is normal in size. Normal caliber esophagus. Mild calcified plaque within the normal caliber thoracic aorta. Dense mitral annulus calcifications are again noted. A few calcified left hilar lymph nodes. Bilateral lower lobe subsegmental pulmonary arteries are nondiagnostic due to the respiratory motion artifact. The remaining pulmonary arteries show no filling defects to suggest a pulmonary embolus. Scattered calcified granulomas again noted within the left lung. Progressive bandlike consolidation within the right lung apex. This is nonspecific but favors post radiation pneumonitis. Small cluster of tree-in-bud nodular opacities within the right upper lobe best seen on image 183 have slightly improved. Linear groundglass density within the left upper lobe posteriorly has also resolved. A few small patchy density at the lung bases are nonspecific but favor atelectasis. A subtle 7 mm groundglass nodule within the right lower lobe in image 135 remains unchanged. IMPRESSION: 1. No evidence for pulmonary embolus. 2. Interval improvement in the small cluster of tree-in-bud nodular opacities within the right upper lobe. The left upper lobe groundglass density has resolved in the interval. 3. Progressive consolidation involving the right apical opacity. This favors post radiation pneumonitis. 4. No change in the 7 mm groundglass nodule within the right lower lobe. One year chest CT follow-up recommended to ensure stability. 5. No evidence for metastatic disease within the chest. ACT 112: Negative or not required by law. Electronically signed by: Eulalio Pinon M.D. 05/03/2021 10:47 AM Dictated:05/03/21 1037 Transcribed: 05/03/[address] angio neck with con, CT angio head w con CLINICAL HISTORY: CVA TECHNIQUE: CT angiography of the head and neck was performed following intravenous administration of iodinated contrast. Coronal and sagittal MIPS were obtained from the axial data set and were submitted for review. Automated dose lowering techniques and/or adjustment according to patient size were utilized for this examination. All measurements were calculated based on NASCET criter ia. Comparison: None available at the time of this dictation. FINDINGS: Scarring is seen in the right upper lobe and bilateral apices. CTA Neck: A 3 vessel aortic arch is shown. There is no significant atherosclerotic plaque in the aortic arch or the origins of the innominate, left common carotid, and left subclavian arteries. The common carotid, external carotid, cervical segments of the internal carotid arteries, and the cervical segments of the vertebral arteries are patent without hemodynamically significant stenosis. The left vertebral artery is dominant. CTA Head: The anterior and posterior cerebral circulations are patent. No hemodynamically significant stenosis, aneurysm, dissection, or arteriovenous malformation is shown. Atherosclerotic disease is noted. IMPRESSION: 1. No occlusion, hemodynamically significant stenosis, aneurysm, dissection, or arteriovenous malformation in the major intracranial arteries. 2. No occlusion, hemodynamically significant stenosis, or dissection in the major cervical arteries. Within the limits of the CTA rather than a noncontrast head CT, there is no evidence of acute hemorrhage. Assessment of stenosis of the internal carotid arteries is based on NASCET criteria. ACT 112: Negative or not required by law. Electronically signed by: Rodríguez Villalta M.D. 05/01/2021 1:40 PM Dictated:05/01/21 1331 Transcribed: 05/01/211330 CT angio neck with con, CT angio head w con CLINICAL HISTORY: CVA TECHNIQUE: CT angiography of the head and neck was performed following intravenous administration of iodinated contrast. Coronal and sagittal MIPS were obtained from the axial data set and were submitted for review. Automated dose lowering techniques and/or adjustment according to patient size were utilized for this examination. All measurements were calculated based on NASCET criteria. Comparison: None available at the time of this dictation. FINDINGS: Scarring is seen in the right upper lobe and bilateral apices. CTA Neck: A 3 vessel aortic arch is shown. There is no significant atherosclerotic plaque in the aortic arch or the origins of the innominate, left common carotid, and left subclavian arteries. The common carotid, external carotid, cervical segments of the internal carotid arteries, and the cervical segments of the vertebral arteries are patent without hemodynamically significant stenosis. The left vertebral artery is dominant. CTA Head: The anterior and posterior cerebral circulations are patent. No hemodynamically significant stenosis, aneurysm, dissection, or arteriovenous malformation is shown. Atherosclerotic disease is noted. IMPRESSION: 1. No occlusion, hemodynamically significant stenosis, aneurysm, dissection, or arteriovenous malformation in the major intracranial arteries. 2. No occlusion, hemodynamically significant stenosis, or dissection in the major cervical arteries. Within the limits of the CTA rather than a noncontrast head CT, there is no evidence of acute hemorrhage. Assessment of stenosis of the internal carotid arteries is based on NASCET criteria. ACT 112: Negative or not required by law. Electronically signed by: Rodríguez Villalta M.D. 05/01/2021 1:40 PM Dictated:05/01/211330 Transcribed: 05/01/211330 MR brain wo/w con CLINICAL HISTORY: Intracranial bleed TECHNIQUE: Multiplanar and multisequence MR images of the brain were obtained prior to and following administration of gadolinium contrast. Comparison: None available at the time of this dictation. FINDINGS: There is a punctate focus of restricted diffusion in the left posterior internal capsule with associated edema, mild swelling, and enhancement.. Foci of T2 and FLAIR hyperintensity are noted in the paraventricular areas consistent with chronic small vessel ischemic disease. Mild diffuse encephalomalacia is seen. There is approximately 3 mm rightward midline shift. There is no evidence of acute intraparenchymal hemorrhage. No extra axial fluid collections are seen. The corpus callosum, pituitary gland, and cerebellar tonsils appear grossly unremarkable. Flow voids of the major intracranial arterial vessels are identified. The imaged portions of the paranasal sinuses, mastoid air cells, and orbits are unremarkable. IMPRESSION: There is restricted diffusion, edema, enhancement in the right posterior internal capsule with minimal rightward midline shift. Findings are compatible with acute lacunar infarct. No hemorrhage is seen to correspond to hyperdensity seen in the prior CT head. ACT 112: Negative or not required by law. Electronically signed by: Rodríguez Villalta M.D. 05/01/2021 11:03 AM Dictated:05/01/21 1059 Transcribed: 05/01/[address] head/brain wo con at 1:54 PM CLINICAL HISTORY: f/u ? bleed COMPARISON STUDY: 04/30/2021 at 10:[address] DOSE: 1151.75 mGy.cm TECHNIQUE: Standard CT of the Brain was performed without IV contrast. A dose lowering technique was utilized adhering to the principles of ALARA. FINDINGS: Compared to the previous examination, a very small hyperdense focus is again seen within the left parietal lobe measuring 3 mm on the current study and essentially unchanged. The persistence of this finding does suggest a very small punctate hemorrhage. No other evidence suggestive of hemorrhage is seen. 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 There is mild cerebral cortical atrophy and decreased attenuation in the periventricular white matter representing remote small vessel disease. The remainder of the study is unchanged. IMPRESSION: 1. Compared to the previous examination, there is a persistent small focus of hyperdensity within the left parietal lobe. Its persistence is suspicious for a small punctate hemorrhage rather than artifact. No other evidence for hemorrhage is seen. 2. 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 ACT 112: Negative or not required by law. Electronically signed by: Josse Dior M.D. 04/30/2021 2:15 PM Dictated:04/30/21 1404 Transcribed: 04/30/21 1404 XR chest 1V portable CLINICAL HISTORY: Atypical chest pain TECHNIQUE: Single frontal radiograph of the chest was obtained. Comparison: Comparison is made to chest one view 07/19/2008 FINDINGS: No lines and tubes are seen. Calcified aortic knob is seen. Opacities are seen at the right greater than left upper lungs. No evidence of pleural effusion or pneumothorax. IMPRESSION: Right greater than left upper lung opacity may represent atelectasis or s carring, less likely aspiration or pneumonia. ACT 112: Negative or not required by law. Electronically signed by: Rodríguez Villalta M.D. 04/30/2021 10:57 AM Dictated:04/30/21 1056 Transcribed: 04/30/[address] OF THE HEAD WITHOUT CONTRAST CLINICAL HISTORY: Altered mental status. COMPARISON STUDY: Head CT September 08, 2020. CT DOSE: 537.48 mGy.cm TECHNIQUE: Helical axial images of the head were obtained without IV contrast. Automated exposure control was utilized for the study. A dose lowering technique was utilized adhering to the principles of ALARA. FINDINGS: There is a small 4 mm hyperdense focus within the left parietal lobe on axial image 19 of 28. This is of questionable significance. Ventricular system is unremarkable. Basal cisterns are patent. There are no extra axial collections. White matter hypodensity suggests small vessel disease. There is a 1 cm hypodensity within left basal ganglia on axial image 14 of 20 which is new since prior exam. There may be an additional old left basal ganglia infarct. There are no significant calvarial abnormalities. Visualized portions of the sinuses and mastoid air cells are clear. IMPRESSION: 1. Small 4 mm hyperdense focus within the left parietal lobe. This is most likely artifactual however a punctate focus of hemorrhage cannot be completely excluded. 2. 1 cm hypodensity within left basal ganglia. This suggests an age indeterminate infarct, new since CT of September 08, 2020. ACT 112: Negative or not required by law. Electronically signed by: Kemal Elizabeth M.D. 04/30/2021 10:46 AM Dictated:04/30/21 1040 Transcribed: 04/30/21 1040 Ordered Studies 04/30/21 09:58 CT head/brain wo con Stat 04/30/21 13:02 CT head/brain wo con Urgent 05/01/21 08:00 MR brain wo/w con Routine 05/01/21 12:13 CT angio head w con Routine CT angio neck with con Routine 05/03/21 06:55 CT angio chest PE protocol Routine Hospital Course (1) Intentional overdose: Intentional drug overdose Suicidal attempt Suspected to have consumed about 40 tablets of Lorazepam Drug Screen negative: Likely falsely negative secondary to poor cross-reactivity of lorazepam with Assay Poison control was contacted recommended conservative management Psychiatry on board recommended inpatient treatment Continue 1-on-1 for risk of harm to self Melatonin 3mg qhs for insomnia and Continue to Hold all other psych medications for now as per Psych Do not discharge or allow to leave AMA Continue to Hold all other psych medications for now Hyponatremia Likely secondary to poor oral intake Sodium 131 today Continue Urea BID Will need to continue encourage her to increase PO intake Continue monitor BMP UTI Urine cx positive for Ecoli Completed the course of Rocephin Chest Pain CTA showed no evidence of PE. Interval improvement in the small cluster of tree-in-bud nodular opacities within the right upper lobe. EKG showed no ischemic ST changes Troponin x4 negative ECHO showed no wall motion abnormality resolved Suspected Intracranial hemorrhage-Ruled out by MRI, +Lacunar Infarct CT head showed small focus of hyperdensity within the left parietal lobe suspicious for small punctate hemorrhage. Also noted Lackner infarct in the basal ganglia on the left. MRI showed There is restricted diffusion, edema, enhancement in the right pos terior internal capsule with minimal rightward midline shift. Findings are compatible with acute lacunar infarct. No hemorrhage is seen to correspond to hyperdensity seen in the prior CT head. --Patient's son, granddaughter believed that patient with not want any invasive intervention and would not want to be transferred to tertiary care center as per previous hospitalist team Family also confirmed that patient would wanted to be DNR even prior to recent events Family agrees with conservative management for now Neurology on board recommended plavix and aspirin for 21 days then stop ASA and continue Plavix thereafter Fall precautions PT/OT when appropriate Follow up with neurology in 3 to 4 weeks Anxiety Depression Psych on board Continue follow up with psych outpatient Sinus tachycardia Mostly due to anxiety/hospital setting Asymptomatic Consider to add a low dose beta sourav if no improvement H/O breast cancer S/P mastectomy H/O adenocarcinoma of lung Radiation pneumonitis as per records Lung Nodule CTA showed no change in the 7 mm ground glass nodule within the right lower lobe. One year chest CT follow-up recommended to ensure stability. Asthma/COPD Resume home medications as able DVT Px SCDs Code Status DNI/DNR Disposition Ok from medical standpoint to discharge to Geriatric psych Total Time Total Time Spent Total Time Spent (In Minutes): 35 minutes Discharge Plan Discharge Items Patient Disposition: Transfer Behavioral Health Fac Reason For Visit: OVERDOSE, MHID Discharge Diagnosis: Intentional drug overdose Suicidal attempt Hyponatremia Urinary tract infection (UTI) Chest Pain Lacunar Infarct Anxiety Depression H/O breast cancer H/O adenocarcinoma of lung Radiation pneumonitis H/O PE Asthma/COPD Condition on Discharge: Good Activity: Resume your previous activity Lifting: Gradually increase as tolerated Bathing: No limitations Exercise/Sports: Gradually increase as tolerated Weightbearing: Full weightbearing Non-emergency contact: Primary Care Provider, Deputy Clerk and Psychiatrist Call non-emergency contact if: you have any medication questions Follow-up/Referrals: Bear Rodriguez MD [Primary Care Provider] - Diet: Regular Addtl Attending Provider Instructions: Follow up with your primary care provider once discharge from the [facility] mental [facility] facility Continue follow up with psychiatry Follow up with neurology Dr. Genao (or his colleagues) in 3-4 weeks (please call to arrange for the appointment) Continue plavix and aspirin for 21 days then stop aspirin and continue Plavix thereafter Continue physical and occupational therapy Fall precaution Check BMP in 1 week to monitor your sodium Pending Studies at Discharge: No Stand-Alone Forms: My [facility] Skilled Items DNR: Yes Lines: None Medications and DC Order Prescriptions: New clopidogrel 75 mg Tablet 75 mg PO QAM Qty: 30 RF: 0 Ure-Na 15 gram Powder In Packet 15 g PO BID Qty: 8 RF: 0 melatonin 3 mg Tablet 3 mg PO HS 30 Days Qty: 30 RF: 0 Continued Anoro Ellipta 62.5-25 mcg/actuation blister with device 1 inh inhalation DAILY Qty: 60 RF: 5 metronidazole 1 % gel 1 applic TOP DAILY RF: 0 losartan 25 mg Tablet 25 mg PO QAM RF: 0 calcium polycarbophil [Fiber Laxative (ca polycarbo)] 625 mg Tablet 1,250 mg PO DAILY RF: 0 calcium carbonate-vitamin D3 [Calcium 600 + D(3)] 600 mg-5 mcg (200 unit) Tablet 1 tab PO UD RF: 0 aspirin [Aspir-81] 81 mg Tablet,Delayed Release (Dr/Ec) 81 mg PO DAILY RF: 0 triamcinolone acetonide 0.1 % Cream 1 applic TOPICAL BID RF: 0 omeprazole 20 mg Capsule,Delayed Release(Dr/Ec) 20 mg PO DAILY RF: 0 fluticasone propionate [Flonase] 50 mcg/actuation [place],Suspension 1 spray INTRANASAL Q12H RF: 0 loratadine 10 mg Tablet 10 mg PO DAILY RF: 0 omega 9-pit-glf-fish oil [Fish Oil] 1,000 mg (120 mg-180 mg) Capsule 1 cap PO BID RF: 0 Stiolto Respimat 2.5-2.5 mcg/actuation Mist 2 puff INHALATION QAM RF: 0 montelukast 10 mg tablet 10 mg PO HS RF: 0 Discontinued venlafaxine [Effexor XR] 75 mg Capsule,Extended Release 24hr 75 mg PO BID RF: 0 lorazepam 1 mg Tablet 1 mg PO BID RF: 0 melatonin 5 mg Tablet 5 mg PO HS RF: 0 Admission Data Admit Date/Time: 04/30/21 16:04 Attending Provider: Renzo Meneses Admit Provider: Vito Noble Primary Care Provider: Bear Rodriguez Other Providers: Kee Genao ; Meryl Méndez ; Mulu Blackman ; Monik Sanderson ; George Romero ; Vito Noble ; José Antonio Floyd
[2021-05-06] MEDS: METOPROLOL TARTRATE 25 MG TAB PO SCH ×2 (14:10→19:28)
[2021-05-06 17:01] LABS: Influenza A virus by PCR Negative (Neg); Influenza B virus by PCR Negative (Neg); RSV by PCR Negative (Neg); SARS CoV2 RNA(COVID-19) InHosp NEGATIVE (Negative)
[2021-05-06 19:17] VITALS: BP 131/79; PULSE 100; TEMP 97.9; O2SAT 98
== END 2021-05-06 19:40 | DRG 917 ==
LOC: ED 09:29 → SUATTDRO 16:04 → EDINP 16:04 → 2E 19:30

== ENCOUNTER 2021-06-24 11:09 | Inpatient (IN) ==
--- NOTE | 2021-06-24 12:19 | Emergency Department Note ---
Impression & Plan Anemia, RUSSELL (dyspnea on exertion), Edema, peripheral, Abnormal chest CT ED Provider Note NAME: NALLELY NOBLE AGE: 89 SEX: F : 1930 ARRIVES VIA: Walk-In INFORMANT: Patient, ED PROVIDER(S): Jamari Blue DO CHIEF COMPLAINT: Difficulty breathing HPI: The patient is an 89-year-old female who presented to the emergency depa rtment for an evaluation of difficulty breathing and low-grade fever. The patient had a CT of her chest earlier in the week. She was told the CT was abnormal and she is trying to get a scheduled appointment with a agricultural service technician. She has been noticing lower extremity swelling. She is also been noticing some difficulty breathing with exertion. She presented with a family member. Apparently the symptoms or not new but have been worsening especially over the last few days. She denies having any specific chest pain. She denies having any abdominal pain. She denies having any black or bloody bowel moods. She does have a remote history of breast cancer. She did receive medication for fev er prior to coming to the emergency department. She was sent to the emergency department from her personal snf. ROS: See above HPI for pertinent positives & negatives. A total of 10 systems reviewed and were otherwise negative. PAST MEDICAL HISTORY: See Below PAST SURGICAL HISTORY: See Below FAMILY HISTORY: See Below SOCIAL HISTORY: See Below HOME MEDICATIONS: See Below ALLERGIES: See Below VITALS: See Below PHYSICAL EXAMINATION: GENERAL: Patient is awake alert in no acute distress patient is resting comfortably and showing no signs of anxiety EYES: The conjunctivae are clear. The pupils are round and reactive. EARS, NOSE, MOUTH AND THROAT: The nose is without any evidence of any deformity. Mucous membranes are moist. Tongue is midline. NECK: The neck is nontender and supple. RESPIRATORY: Diminished breath sounds are noted at both bases. There is no conversational dyspnea. CARDIOVASCULAR: Regular rate and rhythm noted there no murmurs rubs or gallops normal S1 normal S2. GASTROINTESTINAL: The abdomen is soft. Abdomen is nontender. Rectal exam revealed brown stool which was heme-negative. MUSCULOSKELETAL/EXTREMITIES: There is no evidence of gross deformity full range of motion is noted in the hips and shoulders. SKIN: Bilateral pedal edema was noted. Skin was warm and dry. NEUROLOGIC: Patient is awake alert and oriented x3 MEDICAL DECISION MAKING: The patient is an 89-year-old female who presented to the emergency department from her personal snf for an evaluation of difficulty breathing and shortness of breath with exertion. The patient did report dark stools but on my physical exam the stool was heme-negative. There was not much stool on the sample so this may need to be repeated as an inpatient. The patient was found to have significant anemia. I do feel this explains the patient's presentation today. I did consent the patient for blood. I ordered 2 units of blood to be given as soon as possible. I discussed patient's laboratory and radiographic studies with her. I also discussed her [facility] Certainly this anemia will need to be further worked up to determine the cause. She also was found to have an abnormal chest CT earlier in the week and this may also require further work-up. She was feeling much better on subsequent reevaluation. Triage Nursing notes reviewed. Prior medical records reviewed Vital Signs: reviewed and remarkable for no significant abnormalities Differential diagnosis: Reactive airway disease, pneumonia, pneumothorax, COPD, CHF, infections, cardiac ischemia, pulmonary embolism, musculoskeletal, gastrointestinal, as well as other pathologies. ER treatment provided: See below Diagnostics interpreted by me: ECG: EKG was obtained in the emergency department. My interpretation is sinus rhythm at 90 bpm. There is no ectopy. There is no acute ST segment abnormalities noted. This was compared to a tracing from May 02, 2021. There is a decrease in the rate otherwise no significant changes were noted. Cardiac Monitoring: An order was placed for continuous cardiac monitoring. The monitor shows a rate of 73 bpm with sinus rhythm. Laboratory studies: As stated above and show below. Imaging studies: See below Consultation(s): I discussed this case with Deb who is [facility]. ED COURSE: Procedures: none Critical Care: I have personally spent greater than 45 minutes of critical care time in the direct management of this patient. This includes bedside care, interpretation of diagnostic studies, and testing, discussion with consultants, patient, and family members, and other required patient management activities. This 45 minutes is in excess of all separately billable procedures. Past Med/Surg History Medical History Abnormal CT of the chest Anxiety Asthma USING RESCUE INHALER FREQUENTLY/DAILY Asthma-COPD overlap syndrome Cancer BREAST CANCER-LEFT MASTECTOMY Chronic obstructive pulmonary disease Deep vein thrombosis 15 YEARS AGO S/P LEG SURGERY Dysphagia HX ESOPHAGEAL STRETCHING GERD (gastroesophageal reflux disease) History of pulmonary embolism Hypertension Osteoarthritis Prolapsed bladder Pulmonary nodule, right Rectal bleeding Surgical History History of cataract surgery RT/LEFT History of colonoscopy History of esophagogastroduodenoscopy (EGD) History of mastectomy LEFT (NO BP/LAB DRAWS) History of tonsillectomy History of tooth extraction History of total hysterectomy with bilateral salpingo-oophorectomy (BSO) History of total knee replacement LEFT/RT Family History Other No family history of adverse response to anesthesia Social History Smoking Status: Never smoker Second Hand Exposure: No; Hx Alcohol Use: No Hx Substance Use: No Preferred Language: Palauan Communication Ability: Effective Histotechnologist Required: No Beliefs That Will Affect Care: None marital status: / Current Living Situation: Alone Feels Safe at Home: Yes Childhood Exposure to Second-Hand Smoke: Yes Dental Care, Regularly: Yes Assistive Devices: None Allergies Allergies Allergy/AdvReac Type Severity Reaction Status Date / Time bee venom protein (honey bee) Allergy Severe ANAPHYLAXIS Verified 06/24/21 12:19 Home Meds Home Medications Medication Instructions Recorded Confirmed losartan 25 mg tablet 25 mg PO QAM 03/07/18 06/24/21 aspirin 81 mg tablet,delayed 81 mg PO QAM 04/30/21 06/24/21 release montelukast 10 mg tablet 10 mg PO HS 04/30/21 06/24/21 tiotropium 2.5 mcg-olodaterol 2.5 2 puff INHALATION QA 04/30/21 06/24/21 mcg/actuation mist for inhalation (Stiolto Respimat) acetaminophen 325 mg tablet 650 mg PO Q4H PRN 06/24/21 06/24/21 (Tylenol) calcium carbonate 500 mg calcium 500 mg PO BID 06/24/21 06/24/21 (1,250 mg) chewable tablet docusate sodium 100 mg capsule 100 mg PO BID 06/24/21 06/24/21 (Colace) donepezil 5 mg tablet 5 mg PO BID 06/24/21 06/24/21 hydroxyzine HCl 25 mg tablet 25 mg PO BID 06/24/21 06/24/21 lorazepam 0.5 mg tablet 0.5 mg PO BID 06/24/21 06/24/21 pantoprazole 40 mg tablet,delayed 40 mg PO QAM 06/24/21 06/24/21 release sertraline 50 mg tablet 50 mg PO QAM 06/24/21 06/24/21 Results & Data (ED) Vital Signs Vital Signs - 24 hr 06/24/21 11:12 06/24/21 11:28 06/24/21 11:30 Temperature 36.2 C L Temperature Source Temporal Artery Scan Pulse Rate 91 H 94 H 90 Pulse Rate from SpO2 Sensor 93 H 88 Respiratory Rate 16 23 Respiratory Effort / Characteristics Non-Labored Spontaneous Respiratory Depth Normal Blood Pressure 138/67 Blood Pressure Mean 90 Blood Pressure Position Sitting Pulse Oximetry 98 99 98 Oxygen Delivery Method Room Air Room Air Room Air Sepsis Recent Fever Within 48 Hours No Sepsis New/Unexplained Change in Mental Status No Sepsis Action Taken by Nursing No Action Required 06/24/21 11:40 06/24/21 11:50 06/24/21 12:00 Temperature Temperature Source Pulse Rate 89 90 89 Pulse Rate from SpO2 Sensor 89 89 86 Respiratory Rate 22 21 17 Respiratory Effort / Characteristics Respiratory Depth Blood Pressure Blood Pressure Mean Blood Pressure Position Pulse Oximetry 97 98 98 Oxygen Delivery Method Room Air Room Air Room Air Sepsis Recent Fever Within 48 Hours Sepsis New/Unexplained Change in Mental Status Sepsis Action Taken by Nursing 06/24/21 12:10 06/24/21 12:20 06/24/21 12:30 Temperature Temperature Source Pulse Rate 86 92 H 98 H Pulse Rate from SpO2 Sensor 84 91 H 98 H Respiratory Rate 17 18 26 H Respiratory Effort / Characteristics Respiratory Depth Blood Pressure Blood Pressure Mean Blood Pressure Position Pulse Oximetry 97 96 97 Oxygen Delivery Method Room Air Room Air Room Air Sepsis Recent Fever Within 48 Hours Sepsis New/Unexplained Change in Mental Status Sepsis Action Taken by Nursing 06/24/21 12:40 06/24/21 12:50 06/24/21 13:00 Temperature Temperature Source Pulse Rate 92 H 95 H 86 Pulse Rate from SpO2 Sensor 92 H 95 H 83 Respiratory Rate 26 H 33 H 36 H Respiratory Effort / Characteristics Respiratory Depth Blood Pressure Blood Pressure Mean Blood Pressure Position Pulse Oximetry 98 96 97 Oxygen Delivery Method Room Air Room Air Room Air Sepsis Recent Fever Within 48 Hours Sepsis New/Unexplained Change in Mental Status Sepsis Action Taken by Nursing 06/24/21 13:10 06/24/21 13:20 06/24/21 13:30 Temperature Temperature Source Pulse Rate 85 87 86 Pulse Rate from SpO2 Sensor 82 85 87 Respiratory Rate 16 20 23 Respiratory Effort / Characteristics Respiratory Depth Blood Pressure Blood Pressure Mean Blood Pressure Position Pulse Oximetry 97 97 96 Oxygen Delivery Method Room Air Room Air Room Air Sepsis Recent Fever Within 48 Hours Sepsis New/Unexplained Change in Mental Status Sepsis Action Taken by Nursing 06/24/21 13:40 Temperature Temperature Source Pulse Rate 94 H Pulse Rate from SpO2 Sensor 92 H Respiratory Rate 37 H Respiratory Effort / Characteristics Respiratory Depth Blood Pressure Blood Pressure Mean Blood Pressure Position Pulse Oximetry 95 Oxygen Delivery Method Room Air Sepsis Recent Fever Within 48 Hours Sepsis New/Unexplained Change in Mental Status Sepsis Action Taken by [facility] Medications Current Medication List: was personally reviewed by me Laboratory Data Attestation: I reviewed the patient's lab results. Result diagrams: 06/24/21 12:00 06/24/21 12:00 Lab Results 06/24/21 06/24/21 06/24/21 Range/Units 12:00 12:00 12:00 WBC 6.24 (4.8-10.8) K/uL RBC 2.57 L (4.2-5.4) M/uL Hgb 6.6 L* (12.0-16.0) g/dL Hct 21.4 L (37-47) % MCV 83.3 (80-100) fL MCH 25.7 (25-34) pg MCHC 30.8 L (32-36) g/dL RDW Std Deviation 53.3 H (36.4-46.3) fL RDW Coeff of [place] 17.6 H (11.5-14.5) % Plt Count 357 (130-400) K/uL MPV 9.7 (7.4-10.4) fL Immature Gran % (Auto) 0.2 % Neut % (Auto) 77.6 % Lymph % (Auto) 10.7 % Bartholomew % (Auto) 10.3 % Eos % (Auto) 0.6 % Baso % (Auto) 0.6 % Neut # (Auto) 4.84 (1.4-6.5) K/uL Lymph # (Auto) 0.67 L (1.2-3.4) K/uL Bartholomew # (Auto) 0.64 H (0.11-0.59) K/uL Eos # (Auto) 0.04 (0-0.5) K/uL Baso # (Auto) 0.04 (0-0.2) K/uL Immature Gran # (Auto) 0.01 (0.00-0.02) K/uL Polychromasia 1+ PT 11.4 (9.0-12.0) Seconds INR 1.1 (0.9-1.1) APTT 22.2 (21.0-31.0) Seconds PTT Ratio 0.8 VBG pH (7.36-7.41) VBG pCO2 (38-50) mmHg VBG pO2 mmHg VBG HCO3 mmol/L VBG O2 Saturation % VBG Base Excess mEq/L Barometric Pressure mm/Hg Sodium (136-145) mmol/L Potassium (3.5-5.1) mmol/L Chloride (98-107) mmol/L Carbon Dioxide (21-32) mmol/L Anion Gap (3-11) BUN (6-23) mg/dl Creatinine (0.6-1.2) mg/dl Est Cr Clr Drug Dosing ml/min Est GFR ( Amer) ml/min Est GFR (Non-Af Amer) ml/min BUN/Creatinine Ratio (10-20) Glucose (70-99(Fasting)) mg/dl Calcium (8.5-10.1) mg/dl Magnesium (1.7-2.4) mg/dl Total Bilirubin (0.2-1.0) mg/dl AST (13-39) U/L ALT (7-52) U/L Alkaline Phosphatase (34-104) U/L Troponin I High Sens 13.3 (0-14) pg/ml Total Protein (6.0-8.3) gm/dl Albumin (3.4-5.0) gm/dl Globulin (2.5-4.0) gm/dl Albumin/Globulin Ratio (0.9-2) Urine Color Urine Appearance (Clear) Urine pH (4.5-7.5) Ur Specific [place] (1.000-1.030) Urine Protein (Negative) Urine Glucose (UA) (Negative) Urine Ketones (Negative) Urine Blood (Negative) Urine Nitrite (Negative) Urine Bilirubin (Negative) Urine Urobilinogen (Negative) Ur Leukocyte Esterase (Negative) Urine WBC (Auto) (0-5) /hpf Urine RBC (Auto) (0-4) /hpf U Hyaline Cast (Auto) (0-5) /lpf U Epithel Cells (Auto) (0-5) /lpf Urine Bacteria (Auto) (Negative) SARS-CoV-2, RNA, NAAT (NEGATIVE) Blood Type Antibody Screen Crossmatch 06/24/21 06/24/21 06/24/21 Range/Units 12:00 12:00 12:27 WBC (4.8-10.8) K/uL RBC (4.2-5.4) M/uL Hgb (12.0-16.0) g/dL Hct (37-47) % MCV (80-100) fL MCH (25-34) pg MCHC (32-36) g/dL RDW Std Deviation (36.4-46.3) fL RDW Coeff of [place] (11.5-14.5) % Plt Count (130-400) K/uL MPV (7.4-10.4) fL Immature Gran % (Auto) % Neut % (Auto) % Lymph % (Auto) % Bartholomew % (Auto) % Eos % (Auto) % Baso % (Auto) % Neut # (Auto) (1.4-6.5) K/uL Lymph # (Auto) (1.2-3.4) K/uL Bartholomew # (Auto) (0.11-0.59) K/uL Eos # (Auto) (0-0.5) K/uL Baso # (Auto) (0-0.2) K/uL Immature Gran # (Auto) (0.00-0.02) K/uL Polychromasia PT (9.0-12.0) Seconds INR (0.9-1.1) APTT (21.0-31.0) Seconds PTT Ratio VBG pH 7.36 (7.36-7.41) VBG pCO2 45 (38-50) mmHg VBG pO2 22 mmHg VBG HCO3 25 mmol/L VBG O2 Saturation < 60.0 % VBG Base Excess -0.2 mEq/L Barometric Pressure 736.3 mm/Hg Sodium 138 (136-145) mmol/L Potassium 4.4 (3.5-5.1) mmol/L Chloride 106 (98-107) mmol/L Carbon Dioxide 26 (21-32) mmol/L Anion Gap 6 (3-11) BUN 25 H (6-23) mg/dl Creatinine 0.59 L (0.6-1.2) mg/dl Est Cr Clr Drug Dosing 58.2 ml/min Est GFR ( Amer) 94.2 ml/min Est GFR (Non-Af Amer) 81.3 ml/min BUN/Creatinine Ratio 42.4 H (10-20) Glucose 92 (70-99(Fasting)) mg/dl Calcium 8.6 (8.5-10.1) mg/dl Magnesium 2.0 (1.7-2.4) mg/dl Total Bilirubin 0.5 (0.2-1.0) mg/dl AST 18 (13-39) U/L ALT 13 (7-52) U/L Alkaline Phosphatase 48 (34-104) U/L Troponin I High Sens (0-14) pg/ml Total Protein 5.9 L (6.0-8.3) gm/dl Albumin 3.8 (3.4-5.0) gm/dl Globulin 2.1 L (2.5-4.0) gm/dl Albumin/Globulin Ratio 1.8 (0.9-2) Urine Color Yellow Urine Appearance Clear (Clear) Urine pH 5.5 (4.5-7.5) Ur Specific [place] 1.025 (1.000-1.030) Urine Protein 2+ H (Negative) Urine Glucose (UA) Negative (Negative) Urine Ketones Negative (Negative) Urine Blood Negative (Negative) Urine Nitrite Negative (Negative) Urine Bilirubin Negative (Negative) Urine Urobilinogen Negative (Negative) Ur Leukocyte Esterase Negative (Negative) Urine WBC (Auto) 1-5 (0-5) /hpf Urine RBC (Auto) 0-4 (0-4) /hpf U Hyaline Cast (Auto) 1-5 (0-5) /lpf U Epithel Cells (Auto) >30 H (0-5) /lpf Urine Bacteria (Auto) Negative (Negative) SARS-CoV-2, RNA, NAAT (NEGATIVE) Blood Type Antibody Screen Crossmatch 06/24/21 06/24/21 Range/Units 12:40 12:42 WBC (4.8-10.8) K/uL RBC (4.2-5.4) M/uL Hgb (12.0-16.0) g/dL Hct (37-47) % MCV (80-100) fL MCH (25-34) pg MCHC (32-36) g/dL RDW Std Deviation (36.4-46.3) fL RDW Coeff of [place] (11.5-14.5) % Plt Count (130-400) K/uL MPV (7.4-10.4) fL Immature Gran % (Auto) % Neut % (Auto) % Lymph % (Auto) % Bartholomew % (Auto) % Eos % (Auto) % Baso % (Auto) % Neut # (Auto) (1.4-6.5) K/uL Lymph # (Auto) (1.2-3.4) K/uL Bartholomew # (Auto) (0.11-0.59) K/uL Eos # (Auto) (0-0.5) K/uL Baso # (Auto) (0-0.2) K/uL Immature Gran # (Auto) (0.00-0.02) K/uL Polychromasia PT (9.0-12.0) Seconds INR (0.9-1.1) APTT (21.0-31.0) Seconds PTT Ratio VBG pH (7.36-7.41) VBG pCO2 (38-50) mmHg VBG pO2 mmHg VBG HCO3 mmol/L VBG O2 Saturation % VBG Base Excess mEq/L Barometric Pressure mm/Hg Sodium (136-145) mmol/L Potassium (3.5-5.1) mmol/L Chloride (98-107) mmol/L Carbon Dioxide (21-32) mmol/L Anion Gap (3-11) BUN (6-23) mg/dl Creatinine (0.6-1.2) mg/dl Est Cr Clr Drug Dosing ml/min Est GFR ( Amer) ml/min Est GFR (Non-Af Amer) ml/min BUN/Creatinine Ratio (10-20) Glucose (70-99(Fasting)) mg/dl Calcium (8.5-10.1) mg/dl Magnesium (1.7-2.4) mg/dl Total Bilirubin (0.2-1.0) mg/dl AST (13-39) U/L ALT (7-52) U/L Alkaline Phosphatase (34-104) U/L Troponin I High Sens (0-14) pg/ml Total Protein (6.0-8.3) gm/dl Albumin (3.4-5.0) gm/dl Globulin (2.5-4.0) gm/dl Albumin/Globulin Ratio (0.9-2) Urine Color Urine Appearance (Clear) Urine pH (4.5-7.5) Ur Specific [place] (1.000-1.030) Urine Protein (Negative) Urine Glucose (UA) (Negative) Urine Ketones (Negative) Urine Blood (Negative) Urine Nitrite (Negative) Urine Bilirubin (Negative) Urine Urobilinogen (Negative) Ur Leukocyte Esterase (Negative) Urine WBC (Auto) (0-5) /hpf Urine RBC (Auto) (0-4) /hpf U Hyaline Cast (Auto) (0-5) /lpf U Epithel Cells (Auto) (0-5) /lpf Urine Bacteria (Auto) (Negative) SARS-CoV-2, RNA, NAAT NEGATIVE (NEGATIVE) Blood Type A Positive Antibody Screen NEGATIVE Crossmatch See Detail Administered Medications Furosemide (Furosemide 40 Mg/4 Ml Vial) 40 mg IV [id number] [facility] Stop: 07/24/21 16:59 Last Admin: 06/24/21 15:12 Dose: 40 mg Documented by: [id number] Lorazepam (Lorazepam 0.5 Mg Tab) 0.5 mg PO BID MARILIA Stop: 07/24/21 20:59 Last Admin: 06/24/21 15:22 Dose: 0.5 mg Documented by: [id number] Discontinued Medications Acetaminophen (Acetaminophen 325 Mg Tab) 650 mg PO PRE-TREAT ONE Stop: 06/24/21 14:42 Last Admin: 06/24/21 15:12 Dose: 650 mg Documented by: [id number] Diphenhydramine HCl (Diphenhydramine Capsule 25 Mg Cap) 25 mg PO PRE-TREAT ONE Stop: 06/24/21 14:42 Last Admin: 06/24/21 15:12 Dose: 25 mg Documented by: [id number] Furosemide (Furosemide 40 Mg/4 Ml Vial) Confirm Administered Dose 40 mg IV .STK- MED ONE Stop: 06/24/21 15:12 Last Admin: 06/24/21 15:41 Dose: Not Given Documented by: [id number] Pantoprazole Sodium 40 mg/ (Syringe) 10 mls @ 5 mls/min IV NOW ONE Stop: 06/24/21 13:13 Last Admin: 06/24/21 13:38 Dose: 5 mls/min Documented by: [id number] Lorazepam (Lorazepam 0.5 Mg Tab) Confirm Administered Dose 0.5 mg .ROUTE .STK-M ED ONE Stop: 06/24/21 15:21 Last Admin: 06/24/21 15:41 Dose: Not Given Documented by: [id number] Imaging Data Radiologist's Impression: Chest X-Ray 06/24/21 11:48 SINGLE VIEW CHEST CLINICAL HISTORY: Dyspnea. FINDINGS: An AP, portable, upright chest radiograph is compared to study dated 04/30/2021 and correlated with chest CT dated 05/03/2021. The heart is enlarged noting atherosclerotic calcification of the thoracic aorta. The mitral annulus is densely calcified. There is mild pulmonary vascular congestion. Chronic interstitial thickening is similar to previous. Fibrotic changes again seen at the right apex. Airspace consolidation is seen at the left lung base. A small left pleural effusion is not excluded. No pneumothorax is seen. The skeletal structures are osteopenic. The bony thorax is grossly intact. Advanced arthritic change is noted in the shoulders. IMPRESSION: 1. Cardiomegaly with pulmonary vascular congestion. 2. There is left basilar consolidation. This could represent atelectasis versus pneumonia/aspiration pneumonitis. Clinical correlation will be required and radiographic follow-up to resolution is recommended. 3. Question a small left pleural effusion. ACT 112: Negative or not required by law. Electronically signed by: Ab Boston M.D. 06/24/2021 12:21 PM Discharge Plan Visit Data Chief Complaint: Shortness of Breath/Dyspnea Stated Complaint: SOB/LOW GRADE FEVER/SWOLLEN ANKLES ED Provider: Jaamri Blue Discharge Problem: Anemia, RUSSELL (dyspnea on exertion), Edema, peripheral, Abnormal chest CT Patient Disposition: Being Evaluated by Hospitalist Discharge Instructions Interventions: ED Discharge Assessment Last Done: 06/24/21 16:34
[2021-06-24 12:20] LABS: Base Excess VBG -0.2 mEq/L; HCO3 VBG 25 mmol/L; PCO2 VBG 45 mmHg (38-50); PO2 VBG 22 mmHg; pH VBG 7.36 (7.36-7.41)
--- NOTE | 2021-06-24 12:22 | XRay Report ---
SINGLE VIEW CHEST CLINICAL HISTORY: Dyspnea. FINDINGS: An AP, portable, upright chest radiograph is compared to study dated 04/30/2021 and correlate d with chest CT dated 05/03/2021. The heart is enlarged noting atherosclerotic calcification of the tho racic aorta. The mitral annulus is densely calcified. There is mild pulmonary vascular congestion. Ch ronic interstitial thickening is similar to previous. Fibrotic changes again seen at the right apex. Airspace consolidation is seen at the left lung base. A small left pleural effusion is not excluded. No pneumothorax is seen. The skeletal structures are osteopenic. The bony thorax is grossly intact. A dvanced arthritic change is noted in the shoulders. IMPRESSION: 1. Cardiomegaly with pulmonary vascular congestion. 2. There is left basilar consolidation. This could represent atelectasis versus pneumonia/aspiration pneumonitis. Clinical correlation will be required and radiographic follow-up to resolution is recomm ended. 3. Question a small left pleural effusion. ACT 112: Negative or not required by law. Electronically signed by: Ab Boston M.D. 06/24/2021 12:21 PM
[2021-06-24 12:25] LABS: Hematocrit (blood only) 21.4 % (37-47); Hemoglobin 6.6 g/dL (12.0-16.0); Mean Corpuscular Hemoglobin 25.7 pg (25-34); Mean Corpuscular Hgb Conc 30.8 g/dL (32-36); Mean Corpuscular Volume 83.3 fL (80-100); Mean Platelet Volume 9.7 fL (7.4-10.4); Platelet Count 357 K/uL (130-400); RDW Coefficient of Variation 17.6 % (11.5-14.5); RDW Standard Deviation 53.3 fL (36.4-46.3); Red Blood Count 2.57 M/uL (4.2-5.4); White Blood Count 6.24 K/uL (4.8-10.8)
[2021-06-24 12:30] LABS: INR 1.1 (0.9-1.1); Partial Thromboplastin Ratio 0.8; Partial Thromboplastin Time 22.2 Seconds (21.0-31.0); Prothrombin Time 11.4 Seconds (9.0-12.0)
[2021-06-24 12:40] LABS: Oxygen Saturation VBG < 60.0 %
[2021-06-24 12:41] LABS: Albumin Globulin Ratio 1.8 (0.9-2); Albumin Level 3.8 gm/dl (3.4-5.0); BUN Creatinine Ratio 42.4 (10-20); Bilirubin,Total 0.5 mg/dl (0.2-1.0); Calcium 8.6 mg/dl (8.5-10.1); Creatinine Clr Calc Pharmacy 58.2 ml/min; Est GFR (African American) 94.2 ml/min; Est GFR (Non-African American) 81.3 ml/min; Globulin 2.1 gm/dl (2.5-4.0); Potassium 4.4 mmol/L (3.5-5.1); Total Protein 5.9 gm/dl (6.0-8.3)
[2021-06-24 12:44] LABS: Basophils # (auto) 0.04 K/uL (0-0.2); Basophils % (auto) 0.6 %; Eosinophils # (auto) 0.04 K/uL (0-0.5); Eosinophils % (auto) 0.6 %; Immature Granulocytes # (auto) 0.01 K/uL (0.00-0.02); Immature Granulocytes % (auto) 0.2 %; Lymphocytes # (auto) 0.67 K/uL (1.2-3.4); Lymphocytes % (auto) 10.7 %; Monocytes # (auto) 0.64 K/uL (0.11-0.59); Monocytes % (auto) 10.3 %; Neutrophils # (auto) 4.84 K/uL (1.4-6.5); Neutrophils % (auto) 77.6 %; Polychromasia 1+
[2021-06-24 12:57] LABS: Appearance Urine Clear (Clear); Bacteria Urine Automated Negative (Negative); Bilirubin Urine Negative (Negative); Blood Urine Negative (Negative); Color Urine Yellow; Epithelial Cell Urine Auto >30 /lpf (0-5); Glucose Urine UA Negative (Negative); Ketones Urine Negative (Negative); Leukocyte Esterase Urine Negative (Negative); Nitrite Urine Negative (Negative); Protein Urine 2+ (Negative); RBC Urine Automated 0-4 /hpf (0-4); Specific Gravity Urine 1.025 (1.000-1.030); Urobilinogen Urine Negative (Negative); pH Urine 5.5 (4.5-7.5)
[2021-06-24] MEDS ORDERED: PANTOprazole 40 MG in SYRINGE 0 ML IV ONE (13:12)
--- NOTE | 2021-06-24 13:30 | History & Physical Report ---
Date of Service June 24, 2021 Assessment & Plan (1) Shortness of breath: (2) Pulmonary mass: Plan: - Admit to tele - Recent CT chest w contrast completed as outpatient on 06/21/21 Right upper lobe 39 x 24 mm opacity, nonspecific. Neoplasm, pneumonia, and/or atelectasis could have this appearance. Further evaluation is suggested. Moderate to large bilateral pleural effusions with compressive atelectasis posteriorly. Left mastectomy. Mild indeterminate age T1 superior vertebral endplate compression, new since 2019 - Pulmonology consultation for possible bronch with biopsy of mass? pleural effusion bilaterally - Appears on Epic record review that there have been multiple RUL nodules including this 29 mm one which has been presents since 2019, there is documentation regarding non-solid vs part-solid, vs ground glass, solid and cystic components surrounding the same lesion. 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 with [employer] BENCH inbound sales consultant - plan to see tomorrow - Continue protonix IV BID - Possibly contributing to increased shortness of breath, pt denies lightheadedness or dizziness (7) Hypertension: Plan: - Continue on losartan 25 mg daily DVT ppx: - teds, scds, no chemical anticoagulation in the setting of possible GI bleed, pulmonary to see regarding possible procedure CODE: DNR/DNI Dispo: From home, likely to remain in the hospital x 1-2 days History of Present Illness Primary Care Provider: Bear Rodriguez MD This is an 89 yo F with PMhx of remote history of breast cancer in 1973 status post radical mastectomy of the left breast, HTN, HLD, asthma-COPD overlap syndrome, history of PE following right knee arthroplasty in 2004, anxiety, and MDD following the recent of her earlier this year. Today the patient presents with worsening shortness of breath. She underwent CT chest imaging with contrast earlier this week on 06/21 for routine appointment to watch lymph nodes which had previously been enlarged due to getting radiation treatments 3-4 years ago for recurrent. They then received a call later that evening that if she was to develop shortness of breath that she should present to the ER however results were not given to them. Pt reports having increased worsening shortness of breath for the past 2 days along with lower extremity swelling. She is able to take 3-4 steps and then becomes extremely winded where she needs to take deep breaths however feels it is difficult, admits to chest tightness and some wheezing but denies chest pain. Also reports a dry cough. This morning she awoke at 2am and was awake until 7am because of anxiety, and has having anxiety attacks since her recently . She is unable to tell me if she awoke because of feeling short of breath or if it was a combination of this plus her anxiety. Patient has been using her Stiolto inhaler as directed. Approximately 2 weeks ago she had 1 week of loose dark tarry stools intermittently, no bright red blood, no abdominal pain, no changes in oral intake or dietary habits. She did not think much of this, and denies any other obvious signs of bleeding. She denies any lightheadedness or dizziness. Today her hemoglobin is depressed at 6.6. She feels that she does look pale when looking in the mirror. She denied denies any night sweats or weight loss. Admits to weight gain of 11 pounds within the past 2 weeks, and actually asked her [id number] to get her another pair of shoes 1 size up because of how swollen her feet were. Her oral intake has increased since being a resident of [facility] where there are 3 meals a day served, vs when she was at home by herself. CT of the chest with contrast shows large moderate bilateral pleural effusions, a RUL opacity measuring 39x24 mm, nonspecific. The patient had not yet spoken or seen a provider regarding her recent CT results. I reviewed images with the patient and her son present at bedside, and have consulted pulmonology to further review with them. Recent hospitalization in April 2021 for possible intentional lorazepam overdose. Her of 62 years recently. She spent time at a geriatric psychiatric facility in [place] and then went directly to personal care at [facility]. She recently began seeing provider at [place] in late May and is currently taking Zoloft 50 mg, donepezil 5 mg twice daily, hydroxyzine 25 mg twice daily, Ativan 0.5 mg twice daily basis. Allergies Allergy/AdvReac Type Severity Reaction Status Date / Time bee venom protein (honey bee) Allergy Severe ANAPHYLAXIS Verified 06/24/21 12:19 Home Medications Medication Instructions Recorded Confirmed Type losartan 25 mg tablet 25 mg PO QAM 03/07/18 06/24/21 History aspirin 81 mg tablet,delayed 81 mg PO QAM 04/30/21 06/24/21 History release montelukast 10 mg tablet 10 mg PO HS 04/30/21 06/24/21 History tiotropium 2.5 mcg-olodaterol 2.5 2 puff INHALATION QAM 04/30/21 06/24/21 History mcg/actuation mist for inhalation (Stiolto Respimat) acetaminophen 325 mg tablet 650 mg PO Q4H PRN 06/24/21 06/24/21 History (Tylenol) calcium carbonate 500 mg calcium 500 mg PO BID 06/24/21 06/24/21 History (1,250 mg) chewable tablet docusate sodium 100 mg capsule 100 mg PO BID 06/24/21 06/24/21 History (Colace) donepezil 5 mg tablet 5 mg PO BID 06/24/21 06/24/21 History hydroxyzine HCl 25 mg tablet 25 mg PO BID 06/24/21 06/24/21 History lorazepam 0.5 mg tablet 0.5 mg PO BID 06/24/21 06/24/21 History sertraline 50 mg tablet 50 mg PO QAM 06/24/21 06/24/21 History Past Med/Surg History Medical History Abnormal CT of the chest Anxiety Asthma USING RESCUE INHALER FREQUENTLY/DAILY Asthma-COPD overlap syndrome Cancer BREAST CANCER-LEFT MASTECTOMY Chronic obstructive pulmonary disease Deep vein thrombosis 15 YEARS AGO S/P LEG SURGERY Dysphagia HX ESOPHAGEAL STRETCHING GERD (gastroesophageal reflux disease) History of pulmonary embolism Hypertension Osteoarthritis Prolapsed bladder Pulmonary nodule, right Rectal bleeding Surgical History History of cataract surgery RT/LEFT History of colonoscopy History of esophagogastroduodenoscopy (EGD) History of mastectomy LEFT (NO BP/LAB DRAWS) History of tonsillectomy History of tooth extraction History of total hysterectomy with bilateral salpingo-oophorectomy (BSO) History of total knee replacement LEFT/RT Family History Other No family history of adverse response to anesthesia Social History Smoking Status: Never smoker Second Hand Exposure: No; Hx Alcohol Use: No Hx Substance Use: No Preferred Language: Moroccan Communication Ability: Effective Bacon Stringer Required: No Beliefs That Will Affect Care: Amish marital status: / Current Living Situation: Personal Care Facility Feels Safe at Home: Yes Safety Concerns: Feels Safe At This Time Childhood Exposure to Second-Hand Smoke: Yes Dental Care, Regularly: Yes Assistive Devices: Glasses and Walker Review of Systems Review of Systems: Constitutional: + fever, no sweats or chills Eyes: No diplopia, no worsening or blurred vision ENT: normal hearing, no trouble swallowing, no lightheadedness or dizziness Respiratory: + SOB, + cough, no sputum, + dyspnea at rest or on exertion Cardiovascular: No chest pain, tightness or palpitations Abdomen: No pain, nausea, vomiting, diarrhea or constipation Musculoskeletal: No joint pain, calf pain, swelling Neurologic: No weakness, numbness/tingling, + uses walker due to balance problems Psychiatric: + Significant anxiety with recent loss of her Skin: No rash or itch, + pallor Physical Exam Physical Exam: General: awake, alert, no apparent distress, + pallor Head: Normocephalic, atraumatic ENT: PERRL, EOMI, no pharyngeal exudate, mucous membranes moist Chest: + On room air, audible wheeze, absent breath sounds at bases bilaterally, + crackles in mid croft bilaterally Cardiac: Sinus tach, + systolic ejection murmur, mild JVD, normal peripheral pulses, good capillary refill Abdominal: NABS x 4 quadrants, soft, nondistended, nontender to palpation, no rebound or guarding Extremities: 2+ pitting peripheral edema bilaterally up to knees, no erythema, calfs nontender to palpation Psych: Normal mood and affect Neuro: AAO x 3, strength intact bilaterally and rated 5/5, no motor deficits, speech is clear, no peripheral sensory deficits Results & Data Results & Data ([facility]) Vital Signs (Past 12 Hours) Vital Signs Temp Pulse Resp BP Pulse Ox 06/24/21 12:40 92 H 26 H 98 06/24/21 12:30 98 H 26 H 97 06/24/21 12:20 92 H 18 96 06/24/21 12:10 86 17 97 06/24/21 12:00 89 17 98 06/24/21 11:50 90 21 98 06/24/21 11:40 89 22 97 06/24/21 11:30 90 23 98 06/24/21 11:28 94 H 99 06/24/21 11:12 36.2 C L 91 H 16 138/67 98 Laboratory Results 06/24/21 06/24/21 06/24/21 12:42 12:40 12:27 WBC RBC Hgb Hct MCV MCH MCHC RDW Std Deviation RDW Coeff of [place] Plt Count MPV Immature Gran % (Auto) Neut % (Auto) Lymph % (Auto) [place] % (Auto) Eos % (Auto) Baso % (Auto) Neut # (Auto) Lymph # (Auto) [place] # (Auto) Eos # (Auto) Baso # (Auto) Immature Gran # (Auto) Polychromasia PT INR APTT PTT Ratio VBG pH VBG pCO2 VBG pO2 VBG HCO3 VBG O2 Saturation VBG Base Excess Barometric Pressure Sodium Potassium Chloride Carbon Dioxide Anion Gap BUN Creatinine Est Cr Clr Drug Dosing Est GFR ( Amer) Est GFR (Non-Af Amer) BUN/Creatinine Ratio Glucose Calcium Magnesium Total Bilirubin AST ALT Alkaline Phosphatase Troponin I High Sens Total Protein Albumin Globulin Albumin/Globulin Ratio Urine Color Yellow Urine Appearance Clear Urine pH 5.5 Ur Specific [place] 1.025 Urine Protein 2+ H Urine Glucose (UA) Negative Urine Ketones Negative Urine Blood Negative Urine Nitrite Negative Urine Bilirubin Negative Urine Urobilinogen Negative Ur Leukocyte Esterase Negative Urine WBC (Auto) 1-5 Urine RBC (Auto) 0-4 U Hyaline Cast (Auto) 1-5 U Epithel Cells (Auto) >30 H Urine Bacteria (Auto) Negative SARS-CoV-2, RNA, NAAT NEGATIVE Blood Type A Positive Antibody Screen NEGATIVE Crossmatch See Detail 06/24/21 06/24/21 06/24/21 12:00 12:00 12:00 WBC RBC Hgb Hct MCV MCH MCHC RDW Std Deviation RDW Coeff of [place] Plt Count MPV Immature Gran % (Auto) Neut % (Auto) Lymph % (Auto) [place] % (Auto) Eos % (Auto) Baso % (Auto) Neut # (Auto) Lymph # (Auto) [place] # (Auto) Eos # (Auto) Baso # (Auto) Immature Gran # (Auto) Polychromasia PT 11.4 INR 1.1 APTT 22.2 PTT Ratio 0.8 VBG pH 7.36 VBG pCO2 45 VBG pO2 22 VBG HCO3 25 VBG O2 Saturation < 60.0 VBG Base Excess -0.2 Barometric Pressure 736.3 Sodium 138 Potassium 4.4 Chloride 106 Carbon Dioxide 26 Anion Gap 6 BUN 25 H Creatinine 0.59 L Est Cr Clr Drug Dosing 58.2 Est GFR ( Amer) 94.2 Est GFR (Non-Af Amer) 81.3 BUN/Creatinine Ratio 42.4 H Glucose 92 Calcium 8.6 Magnesium 2.0 Total Bilirubin 0.5 AST 18 ALT 13 Alkaline Phosphatase 48 Troponin I High Sens Total Protein 5.9 L Albumin 3.8 Globulin 2.1 L Albumin/Globulin Ratio 1.8 Urine Color Urine Appearance Urine pH Ur Specific [place] Urine Protein Urine Glucose (UA) Urine Ketones Urine Blood Urine Nitrite Urine Bilirubin Urine Urobilinogen Ur Leukocyte Esterase Urine WBC (Auto) Urine RBC (Auto) U Hyaline Cast (Auto) U Epithel Cells (Auto) Urine Bacteria (Auto) SARS-CoV-2, RNA, NAAT Blood Type Antibody Screen Crossmatch 06/24/21 06/24/21 12:00 12:00 WBC 6.24 RBC 2.57 L Hgb 6.6 L* Hct 21.4 L MCV 83.3 MCH 25.7 MCHC 30.8 L RDW Std Deviation 53.3 H RDW Coeff of [place] 17.6 H Plt Count 357 MPV 9.7 Immature Gran % (Auto) 0.2 Neut % (Auto) 77.6 Lymph % (Auto) 10.7 [place] % (Auto) 10.3 Eos % (Auto) 0.6 Baso % (Auto) 0.6 Neut # (Auto) 4.84 Lymph # (Auto) 0.67 L [place] # (Auto) 0.64 H Eos # (Auto) 0.04 Baso # (Auto) 0.04 Immature Gran # (Auto) 0.01 Polychromasia 1+ PT INR APTT PTT Ratio VBG pH VBG pCO2 VBG pO2 VBG HCO3 VBG O2 Saturation VBG Base Excess Barometric Pressure Sodium Potassium Chloride Carbon Dioxide Anion Gap BUN Creatinine Est Cr Clr Drug Dosing Est GFR ( Amer) Est GFR (Non-Af Amer) BUN/Creatinine Ratio Glucose Calcium Magnesium Total Bilirubin AST ALT Alkaline Phosphatase Troponin I High Sens 13.3 Total Protein Albumin Globulin Albumin/Globulin Ratio Urine Color Urine Appearance Urine pH Ur Specific [place] Urine Protein Urine Glucose (UA) Urine Ketones Urine Blood Urine Nitrite Urine Bilirubin Urine Urobilinogen Ur Leukocyte Esterase Urine WBC (Auto) Urine RBC (Auto) U Hyaline Cast (Auto) U Epithel Cells (Auto) Urine Bacteria (Auto) SARS-CoV-2, RNA, NAAT Blood Type Antibody Screen Crossmatch Diagnostic Findings Chest X-Ray 06/24/21 11:48 SINGLE VIEW CHEST CLINICAL HISTORY: Dyspnea. FINDINGS: An AP, portable, upright chest radiograph is compared to study dated 04/30/2021 and correlated with chest CT dated 05/03/2021. The heart is enlarged noting atherosclerotic calcification of the thoracic aorta. The mitral annulus is densely calcified. There is mild pulmonary vascular congestion. Chronic interstitial thickening is similar to previous. Fibrotic changes again seen at the right apex. Airspace consolidation is seen at the left lung base. A small left pleural effusion is not excluded. No pneumothorax is seen. The skeletal structures are osteopenic. The bony thorax is grossly intact. Advanced arthritic change is noted in the shoulders. IMPRESSION: 1. Cardiomegaly with pulmonary vascular congestion. 2. There is left basilar consolidation. This could represent atelectasis versus pneumonia/aspiration pneumonitis. Clinical correlation will be required and radiographic follow-up to resolution is recommended. 3. Question a small left pleural effusion. ACT 112: Negative or not required by law. Electronically signed by: Ab Boston M.D. 06/24/2021 12:21 PM ECG Additional Comments: 24-JUN-2021 11:26:34 [facility]-EDSTAT ROUTINE RETRIEVAL Sinus rhythm with Premature supraventricular complexes Possible Left atrial enlargement Borderline ECG When compared with ECG of 02-MAY-2021 13:50, Premature supraventricular complexes are now Present Incomplete right bundle branch block is no longer Present 25mm/s10mm/[id number] 241CID: 15Unconfirmed Vent. rate 90 BPM IL interval 138 ms QRS duration 88 ms QT/QTc 378/462 m Code Status & VTE Plan Code Status DNR/DNI - discussed with the patient at bedside Supervising Physician Co-Signing Physician Notes Pt was seen and examined. Agreed with Aiyana SINGH exam, assessment and plan. 89 yo F with PMhx of remote history of breast cancer in 1972 status post radical mastectomy of the left breast, HTN, HLD, asthma-COPD overlap syndrome, history of PE following right knee arthroplasty in 2004, anxiety present today with worsening SOB. She underwent a routine CT chest imaging with contrast earlier this week on 06/21 to watch lymph nodes which had previously been enlarged due to getting radiation treatments 3-4 years ago for recurrent. She received a call to get evaluated in the ER if she develops any SOB. Pt said that she develops SOB with exertion. Hgb on admission 6.[address] chest showed arge moderate bilateral pleural effusions, a RUL opacity measuring 39x24 mm, nonspecific. On exam, no acute distress, +murmur, decrease breath sound, pale looking, no abdominal pain, no focal neuro deficit. Types and cross and transfused 1 units PRBC. Lasix 40mg given due to the pleural effusion. Will monitor H/H and might transfuse an additional 1 unit PRBC. Started on PPI. Will consult Gastro to eval for EGD. Pulm consulted for possible thoracentesis for the pleural effusion. Continue monitor closely. MD Gideon
[2021-06-24] MEDS ORDERED: SODIUM CHLORIDE 0.9% 250 ML IV PRN ×2 (13:56→14:41)
[2021-06-24] MEDS ORDERED: diphenhydrAMINE Capsule 25 MG CAP PO ONE (14:41)
[2021-06-24] MEDS ORDERED: ACETAMINOPHEN 325 MG TAB PO ONE (14:41)
[2021-06-24] MEDS ORDERED: FUROSEMIDE 40 MG/4 ML VIAL IV ONE ×2 (15:11→17:20)
[2021-06-24] MEDS ORDERED: LORazepam 0.5 MG TAB ONE (15:20)
[2021-06-24] MEDS: LORazepam 0.5 MG TAB PO SCH (15:22)
[2021-06-24] MEDS ORDERED: FUROSEMIDE 40 MG/4 ML VIAL IV SCH (17:00)
[2021-06-24] MEDS ORDERED: ONDANSETRON INJ 2 MG/ML 2 ML VIAL IV PRN (17:20)
[2021-06-24] MEDS ORDERED: ACETAMINOPHEN 325 MG TAB PO PRN (17:20)
[2021-06-24] MEDS: hydrOXYzine HCl 25 MG TAB PO SCH (20:21)
[2021-06-24] MEDS: PANTOprazole 40 MG in SYRINGE 0 ML IV SCH (20:21)
[2021-06-24] MEDS: DONEPEZIL HCL 5 MG TAB PO SCH (20:22)
[2021-06-24] MEDS: MONTELUKAST SODIUM 10 MG TABLET PO SCH (20:22)
[2021-06-24] MEDS: CALCIUM CARBONATE 500 MG CHEWABLE TAB PO SCH (20:23)
[2021-06-24] MEDS: DOCUSATE SODIUM 100 MG CAP PO SCH (20:23)
[2021-06-24 23:12] LABS: Hematocrit (blood only) 23.7 % (37-47); Hemoglobin 7.4 g/dL (12.0-16.0)
[2021-06-25] MEDS ORDERED: LORazepam 0.5 MG TAB PO STA (00:48)
--- NOTE | 2021-06-25 05:54 | Electrocardiogram Report ---
Test Reason : Blood Pressure : / mmHG Vent. Rate : 090 BPM Atrial Rate : 090 BPM P-R Int : 138 ms QRS Dur : 088 ms QT Int : 378 ms P-R-T Axes : 084 077 061 degrees QTc Int : 462 ms Sinus rhythm with Premature supraventricular complexes Possible Left atrial enlargement Borderline ECG When compared with ECG of 02-MAY-2021 13:50, Premature supraventricular complexes are now Present Confirmed by Glenn Bragg ([id number]) on 06/25/2021 5:54:27 AM Referred By: Confirmed By:Glenn Bragg
[2021-06-25] MEDS: DOCUSATE SODIUM 100 MG CAP PO SCH ×2 (08:00→21:08)
[2021-06-25] MEDS: LORazepam 0.5 MG TAB PO SCH ×2 (08:00→21:19)
[2021-06-25] MEDS: CALCIUM CARBONATE 500 MG CHEWABLE TAB PO SCH ×2 (08:00→21:08)
[2021-06-25] MEDS: ASPIRIN 81 MG ECTAB PO SCH (08:00)
[2021-06-25] MEDS: DONEPEZIL HCL 5 MG TAB PO SCH ×2 (08:00→21:09)
[2021-06-25] MEDS: SERTRALINE HCL 50 MG TABLET PO SCH (08:00)
[2021-06-25] MEDS: hydrOXYzine HCl 25 MG TAB PO SCH ×2 (08:00→21:09)
[2021-06-25] MEDS: LOSARTAN POTASSIUM 25 MG TAB PO SCH (08:00)
[2021-06-25] MEDS: FUROSEMIDE 40 MG/4 ML VIAL IV SCH (08:00)
[2021-06-25] MEDS: UMECLIDINIUM/VILANTEROL 62.5/25MCG 7 PUFFS/INHALER INH SCH (08:01)
[2021-06-25] MEDS: PANTOprazole 40 MG in SYRINGE 0 ML IV SCH ×2 (08:01→21:35)
--- NOTE | 2021-06-25 08:41 | Pulmonary Consultation ---
Date of Consultation June 25, 2021 Assessment & Plan (1) Abnormal CT scan of lung: (2) Anemia: Anemia type: unspecified type Qualified Code(s): D64.9 - Anemia, unspecified (3) Pleural effusion: Impression: 89-year-old female with moderate obstructive lung disease of unclear etiology, presenting with bilateral pleural effusions peripheral edema an echocardiogram last month showing mitral regurgitation mitral stenosis with preserved ejection fraction. 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 Recommendations: 1. Dyspnea: Suspect related to fluid overload. Given her valvular heart disease and acute settings, repeat evaluation is warranted. Recommend cardiology consultation, diuretics, and follow-up echocardiogram. Deferred to primary service. 2. Bilateral pleural effusions: Again suspect related to a cardiogenic etiology. I will perform diagnostic therapeutic thoracentesis on the right. Fluid will be sent for microbiologic, cytologic, and chemical analysis but suspect transudative etiology. Follow-up chest x-ray post procedure. We will reassess as to whether or not the left side needs to be done as well. 3. Abnormal CT scan: The area of consolidation in the right lung apex corresponds to area treated with SBRT for presumed lung cancer. It appears stable compared to prior CT scan from a month ago. No additional imaging indicated during this admission but she will continue to require radiographic surveillance under the direction of radiation oncology and pulmonary. 4. Obstructive lung disease: Unclear etiology. The patient is a non-smoker. She did have significant reversibility and the possibility of longstanding undertreated asthma is raised. She had difficulty completing PFTs previously and I do not think they need to be repeated at this point time. No indication for steroids. Continue current inhalers. Her CT scan does not demonstrate significant emphysematous changes. Unclear the utility of an aggressive work-up including high-resolution CT scan etc. in this 89-year-old with some underlying dementia. Would manage conservatively with goals towards symptom alleviation. Will continue to follow with you. Feel free to call with question History of Present Illness Attending Physician: Isaura Pretty MD History of Present Illness Asked by hospitalist to assist in evaluation and management this patient with shortness of breath, abnormal CT scan, and bilateral pleural effusions. History is obtained from review electronic medical record as well as discussion with the patient bedside. The patient is an 89-year-old female with a history of breast cancer in the 1970s status postmastectomy and radiation therapy. She presented to the emergency room with shortness of breath. She had CT scanning performed in the outpatient setting a few days prior to admission which demonstrated bilateral pleural effusions and a an area of airspace opacity in the right lung apex which was present on prior film from a month ago. She has had lower extremity edema. She is not coughing or expectorating phlegm. She reports no fevers chills or night sweats. No history of trauma or falls. She has been seen by pulmonary in the past and has been diagnosed with COPD although she is a lifelong non-smoker. She does not report significant wheezing. She has been noted to be anemic. She lives at [facility]. The patient has had this right upper lobe opacity for quite some time. It showed PET avidity back in 2019 and was increasing in size. Low-grade neoplasm was suspected. She was evaluated by Dr. Thompson and has been seen by LUPE Fierro in the interim. She was presented at the [facility] lung conference in June 2019. SBRT without biopsy was recommended. She completed 5000 Gy to the right upper lobe lesion in 5 fractions and has been followed with serial surveillance scans. Patient was last seen in the pulmonary clinic in September 2020. She was last seen by radiation oncology in July 2020 Allergies Allergy/AdvReac Type Severity Reaction Status Date / Time bee venom protein (honey bee) Allergy Severe ANAPHYLAXIS Verified 06/24/21 12:19 Home Medications Medication Instructions Recorded Confirmed Type losartan 25 mg tablet 25 mg PO QAM 03/07/18 06/24/21 History aspirin 81 mg tablet,delayed 81 mg PO QAM 04/30/21 06/24/21 History release montelukast 10 mg tablet 10 mg PO HS 04/30/21 06/24/21 History tiotropium 2.5 mcg-olodaterol 2.5 2 puff INHALATION QAM 04/30/21 06/24/21 Hist ory mcg/actuation mist for inhalation (Stiolto Respimat) acetaminophen 325 mg tablet 650 mg PO Q4H PRN 06/24/21 06/24/21 History (Tylenol) calcium carbonate 500 mg calcium 500 mg PO BID 06/24/21 06/24/21 History (1,250 mg) chewable tablet docusate sodium 100 mg capsule 100 mg PO BID 06/24/21 06/24/21 History (Colace) donepezil 5 mg tablet 5 mg PO BID 06/24/21 06/24/21 History hydroxyzine HCl 25 mg tablet 25 mg PO BID 06/24/21 06/24/21 History lorazepam 0.5 mg tablet 0.5 mg PO BID 06/24/21 06/24/21 History pantoprazole 40 mg tablet,delayed 40 mg PO QAM 06/24/21 06/24/21 History release sertraline 50 mg tablet 50 mg PO QAM 06/24/21 06/24/21 History Patient History Medical History Abnormal CT of the chest Anxiety Asthma USING RESCUE INHALER FREQUENTLY/DAILY Asthma-COPD overlap syndrome Cancer BREAST CANCER-LEFT MASTECTOMY Chronic obstructive pulmonary disease Deep vein thrombosis 15 YEARS AGO S/P LEG SURGERY Dysphagia HX ESOPHAGEAL STRETCHING GERD (gastroesophageal reflux disease) History of pulmonary embolism Hypertension Osteoarthritis Prolapsed bladder Pulmonary nodule, right Rectal bleeding Surgical History History of cataract surgery RT/LEFT History of colonoscopy History of esophagogastroduodenoscopy (EGD) History of mastectomy LEFT (NO BP/LAB DRAWS) History of tonsillectomy History of tooth extraction History of total hysterectomy with bilateral salpingo-oophorectomy (BSO) History of total knee replacement LEFT/RT Family History Other No family history of adverse response to anesthesia Social History Smoking Status: Never smoker Second Hand Exposure: No; Hx Alcohol Use: No Hx Substance Use: No Preferred Language: Fijian Communication Ability: Effective Computer Tech Required: No Beliefs That Will Affect Care: Episcopalian marital status: / Current Living Situation: Personal Care Facility Feels Safe at Home: Yes Safety Concerns: Feels Safe At This Time Childhood Exposure to Second-Hand Smoke: Yes Dental Care, Regularly: Yes Assistive Devices: Glasses, Hearing Aid - Bilateral and Walker Review of Systems Review of Systems: All systems reviewed & are unremarkable except as noted in Subjective Physical Exam Constitutional: WD/WN, vitals as above Neck: trachea midline, no thyromegaly Respiratory: + labored breathing and + tachypneic Auscultation: + diminished lung sounds Diminished at the bases with dullness to percussion Cardiovascular: RRR, no murmur, no edema Gastrointestinal (Abdomen): normal bowel sounds, soft, nontender, no hep atosplenomegaly Musculoskeletal: Extremities: extremities normal to inspection Skin: no rashes, warm and dry Neurologic: Nonfocal exam Lymphatic: no cervical lymphadenopathy Results & Data Results & Data ([facility]) Vital Signs (Past 12 Hours) Vital Signs Temp Pulse Pulse Resp BP Pulse Ox Pulse Ox 06/25/21 06:30 36.5 C 93 H 20 177/94 H 95 06/25/21 03:03 36.3 C L 96 H 20 155/74 H 97 06/25/21 01:19 88 06/25/21 00:00 98 06/24/21 22:40 36.7 C 92 H 20 152/60 H 98 Laboratory Results BNP 540 Troponin negative Diagnostic Findings Echocardiogram from April 2021 showed an EF of 60 to 65% without wall motion abnormalities. Grade 1 diastolic dysfunction. Moderate MR with moderate mitral stenosis PFTs performed 09/02/2019 showed an FEV1 of 0.97 L or 52% predicted with an FVC of 1.68 L or 64% predicted and ratio 57. Bronchodilators were administered with a 19% improvement in the FEV1. Patient was unable to perform lung volumes. Diffusion capacity was reduced at 65% predicted. Critical Care Results & Data Vital Signs (Past 12 Hours) Vital Signs Temp Pulse Pulse Resp BP Pulse Ox Pulse Ox 06/25/21 06:30 36.5 C 93 H 20 177/94 H 95 06/25/21 03:03 36.3 C L 96 H 20 155/74 H 97 06/25/21 01:19 88 06/25/21 00:00 98 06/24/21 22:40 36.7 C 92 H 20 152/60 H 98 Lab & Micro Results (Past 24 Hours) RBC 2.57 M/uL (4.2-5.4) L 06/24/21 WBC 6.24 K/uL (4.8-10.8) 06/24/21 Hgb 7.4 g/dL (12.0-16.0) L 06/24/21 Hct 23.7 % (37-47) L 06/24/21 MCV 83.3 fL (80-100) 06/24/21 MCH 25.7 pg (25-34) 06/24/21 MCHC 30.8 g/dL (32-36) L 06/24/21 RDW Standard Deviation 53.3 fL (36.4-46.3) H 06/24/21 RDW Coefficient of Variation 17.6 % (11.5-14.5) H 06/24/21 Plt Count 357 K/uL (130-400) 06/24/21 MPV 9.7 fL (7.4-10.4) 06/24/21 Neutrophils (%) (Auto) 77.6 % 06/24/21 Lymphocytes (%) (Auto) 10.7 % 06/24/21 Monocytes # (Auto) 0.64 K/uL (0.11-0.59) H 06/24/21 Eosinophils # (Auto) 0.04 K/uL (0-0.5) 06/24/21 Immature Granulocyte % (Auto) 0.2 % 06/24/21 Neutrophils # (Auto) 4.84 K/uL (1.4-6.5) 06/24/21 Lymphocytes # (Auto) 0.67 K/uL (1.2-3.4) L 06/24/21 Monocytes # (Auto) 0.64 K/uL (0.11-0.59) H 06/24/21 Eosinophils # (Auto) 0.04 K/uL (0-0.5) 06/24/21 Basophils # (Auto) 0.04 K/uL (0-0.2) 06/24/21 Immature Granulocyte # (Auto) 0.01 K/uL (0.00-0.02) 06/24/21 Polychromasia 1+ 06/24/21 Na 138 mmol/L (136-145) 06/24/21 K 4.4 mmol/L (3.5-5.1) 06/24/21 Cl 106 mmol/L (98-107) 06/24/21 CO2 26 mmol/L (21-32) 06/24/21 Anion Gap 6 (3-11) 06/24/21 BUN 25 mg/dl (6-23) H 06/24/21 Creatinine 0.59 mg/dl (0.6-1.2) L 06/24/21 Estimated GFR ( Amer) 94.2 ml/min 06/24/21 Estimated GFR (Non-Af Amer) 81.3 ml/min 06/24/21 BUN/Creatinine Ratio 42.4 (10-20) H 06/24/21 Glu 92 mg/dl (70-99(Fasting)) 06/24/21 Ca 8.6 mg/dl (8.5-10.1) 06/24/21 Total Bilirubin 0.5 mg/dl (0.2-1.0) 06/24/21 AST 18 U/L (13-39) 06/24/21 ALT 13 U/L (7-52) 06/24/21 Alkaline Phosphatase 48 U/L (34-104) 06/24/21 TP 5.9 gm/dl (6.0-8.3) L 06/24/21 Albumin 3.8 gm/dl (3.4-5.0) 06/24/21 Globulin 2.1 gm/dl (2.5-4.0) L 06/24/21 Albumin/Globulin Ratio 1.8 (0.9-2) 06/24/21 Mg 2.0 mg/dl (1.7-2.4) 06/24/21 12:00 06/24/21 Calcium Level 8.6 mg/dl (8.5-10.1) 06/24/21 12:00 06/24/21 Prothromb Time International Ratio 1.1 (0.9-1.1) 06/24/21 12:00 06/24/21 Venous Blood pH 7.36 (7.36-7.41) 06/24/21 12:00 06/24/21 Venous Blood Partial Pressure CO2 45 mmHg (38-50) 06/24/21 12:00 06/24/21 Venous Blood Partial Pressure O2 22 mmHg 06/24/21 12:00 06/24/21 Venous Blood HCO3 25 mmol/L 06/24/21 12:00 06/24/21 Venous Blood Base Excess -0.2 mEq/L 06/24/21 12:00 06/24/21 Venous Blood Oxygen Saturation < 60.0 % 06/24/21 12:00 06/24/21 Blood Gas Barometric Pressure 736.3 mm/Hg 06/24/21 12:00 06/24/21 Blood Gas Barometric Pressure 736.3 mm/Hg 06/24/21 12:00 06/24/21 Diagnostic Findings (Past 24 Hours) Chest X-Ray 06/24/21 11:48 SINGLE VIEW CHEST CLINICAL HISTORY: Dyspnea. FINDINGS: An AP, portable, upright chest radiograph is compared to study dated 04/30/2021 and correlated with chest CT dated 05/03/2021. The heart is enlarged noting atherosclerotic calcification of the thoracic aorta. The mitral annulus is densely calcified. There is mild pulmonary vascular congestion. Chronic interstitial thickening is similar to previous. Fibrotic changes again seen at the right apex. Airspace consolidation is seen at the left lung base. A small left pleural effusion is not excluded. No pneumothorax is seen. The skeletal structures are osteopenic. The bony thorax is grossly intact. Advanced arthritic change is noted in the shoulders. IMPRESSION: 1. Cardiomegaly with pulmonary vascular congestion. 2. There is left basilar consolidation. This could represent atelectasis versus pneumonia/aspiration pneumonitis. Clinical correlation will be required and radiographic follow-up to resolution is recommended. 3. Question a small left pleural effusion. ACT 112: Negative or not required by law. Electronically signed by: Ab Boston M.D. 06/24/2021 12:[address] scan was reviewed. It was compared to prior inpatient CT scans from last month. The effusions are new. The consolidation/fibrosis in the upper lobe appears stable. No new suspicious pulmonary nodules. I & O Totals 24 Hours 06/24/21 06/25/21 06/26/21 06:59 06:59 06:59 Intake Total 650 / 650 Output Total 1800 / 1800 Balance -1150 / -1150 Cumulative 06/24/21 11:09 thru 06/25/21 05:53 Intake Total 650 Output Total 1800 Balance -1150 RT Ventilator Mngmt (Last Documented) Ventilator Ordered Settings Respiratory Rate 20 06/25/21 06:30 Ventilator - PT Measurements Respiratory Rate 20 PG Care Time/CCT Total # of Minutes Spent Total Time Spent with Patient: Total time spent is greater than 50% in coordination of care (as documented) at patient's floor/unit and/or counseling patient: Coding Level of Care Code 66432 Initial Inpt Care Lvl [address] scan of lung R91.8 Anemia D64.9 Anemia type: unspecified type Pleural effusion J90
--- NOTE | 2021-06-25 08:55 | Procedure Note ---
Procedure Note Date of Service June 25, 2021 Note Procedure: Diagnostic therapeutic ultrasound-guided catheter thoracentesis Materials Technician: Dr. Amilcar Oliver Indication: Pleural effusion Consent: Signed by patient and verified with timeout prior to procedure Anesthesia: 8 mL's 1% lidocaine without epinephrine local. Procedure: Consent was verified and timeout performed. Appropriate imaging studies were reviewed prior to the procedure. Patient was placed in a seated position and limited thoracic ultrasound was performed of the bilateral chest. Bilateral effusions were noted with compressive atelectasis. May have been slightly more fluid on the left than the right however the right was selected as it was the site of her previous presumed lung cancer. Site appropriate for thoracentesis was selected. The skin was prepped and draped in normal sterile fashion. Lidocaine was used for local analgesia. Fluid was aspirated via the finder needle. A small skin khadijah was made with the scalpel and the catheter over the needle apparatus was advanced over the rib into the pleural space. Using the syringe one-way valve system, a total of 800mL's of clear fluid was removed. Procedure was terminated due to inability to remove any additional fluid. The catheter was removed and observed to be intact. A sterile dressing was applied. Post procedure chest x-ray was ordered. Fluid was sent for cytology, cell count differential, gram stain and culture, LDH, pH, glucose, and total protein. The patient tolerated the procedure well without obvious complication Coding CPT Codes Pulmonary/Thoracic - Pulmonary and Thoracic: 62286 Thoracentesis w imaging ([id number]) [facility] [place] Procedure Codes (Charges) Pulmonary/Thoracic Procedure 1: Pulmonary and Thoracic: 91572 Thoracentesis w imaging
[2021-06-25] MEDS ORDERED: PANTOprazole 40 MG TAB PO SCH ×2 (09:00)
--- NOTE | 2021-06-25 09:23 | XRay Report ---
XR chest 1V portable CLINICAL HISTORY: S/P Thoracentesis COMPARISON STUDY: Chest CT May 03, 2021. Chest radiograph June 24, 2021. FINDINGS: There is no pneumothorax following right thoracentesis. A small left pleural effusion with left basilar opacity persists. Right apical opacity similar to prior exam. This is better depicted on chest CT of May 03, 2021. Interstitial thickening has improved. Incidental note is made of severe o steoarthritis of the right glenohumeral joint. IMPRESSION: 1. No pneumothorax following right thoracentesis. 2. Interval improvement in pulmonary vascular congestion. 3. Small left pleural effusion with left basilar opacity. 4. Persistent right apical opacity better depicted on chest CT of May 03, 2021. This could reflect p ostradiation change. ACT 112: Negative or not required by law. Electronically signed by: Kemal Elizabeth M.D. 06/25/2021 9:21 AM
[2021-06-25 09:37] LABS: Glucose Pleural Fluid 92 mg/dl; LDH Pleural Fluid 51 U/L; Total Protein Pleural Fluid < 3.0 gm/dl
[2021-06-25 10:06] LABS: Appearance Pleural Fluid CLEAR; Basophils, Fluid 0 %; Color Pleural Fluid PALE YELLOW; Eosinophils, Fluid 1 %; Lymphocytes, Fluid 55 %; Mono,Macrophage,Mesothelial 42 %; Neutrophils, Fluid 2 %; RBC Pleural Fluid (A) < 3000 /uL; Source Pleural Fluid RIGHT LUNG; WBC Pleural Fluid (A) 859 /uL
[2021-06-25 10:30] LABS: Basophils # (auto) 0.03 K/uL (0-0.2); Basophils % (auto) 0.5 %; Eosinophils # (auto) 0.06 K/uL (0-0.5); Hematocrit (blood only) 27.9 % (37-47); Hemoglobin 8.7 g/dL (12.0-16.0); Immature Granulocytes # (auto) 0.01 K/uL (0.00-0.02); Immature Granulocytes % (auto) 0.2 %; Mean Corpuscular Hemoglobin 26.2 pg (25-34); Mean Corpuscular Hgb Conc 31.2 g/dL (32-36); Mean Platelet Volume 10.2 fL (7.4-10.4); Monocytes # (auto) 0.58 K/uL (0.11-0.59); Monocytes % (auto) 9.3 %; Neutrophils # (auto) 5.07 K/uL (1.4-6.5); Platelet Count 355 K/uL (130-400); RDW Coefficient of Variation 16.9 % (11.5-14.5); RDW Standard Deviation 51.9 fL (36.4-46.3); Red Blood Count 3.32 M/uL (4.2-5.4); White Blood Count 6.25 K/uL (4.8-10.8)
[2021-06-25 10:46] LABS: INR 1.1 (0.9-1.1); Prothrombin Time 11.2 Seconds (9.0-12.0)
[2021-06-25 11:07] LABS: Albumin Globulin Ratio 1.6 (0.9-2); Albumin Level 3.9 gm/dl (3.4-5.0); BUN Creatinine Ratio 29.9 (10-20); Bilirubin Direct 0.2 mg/dl (0-0.2); Bilirubin,Total 1.2 mg/dl (0.2-1.0); Creatinine Clr Calc Pharmacy 51.2 ml/min; Est GFR (African American) 90.3 ml/min; Est GFR (Non-African American) 77.9 ml/min; Globulin 2.5 gm/dl (2.5-4.0); Magnesium 1.9 mg/dl (1.7-2.4); Potassium 3.5 mmol/L (3.5-5.1); Total Protein 6.4 gm/dl (6.0-8.3)
--- NOTE | 2021-06-25 11:22 | Gastrointestinal Consultation ---
Date of Consultation June 25, 2021 Assessment & Plan (1) Anemia: Pt is a 89 yo female w SOB, wheezing, noted to have elevated BNP, large pleural effusion s/p R thoracentesis this AM. She was found to be anemic on presentation, w symptoms of black stools 2 weeks ago x 1 week. Currently having brown, heme negative stools. Blood ct responds well w 1 U PRBC transfusion overnight. Hx of Hpylori gastritis found in 2019 (treated), and hiatal hernia. No anticoag use, but is on ASA 81mg daily DDx: esophagitis, PUD, gastritis. - PPI IV BID - Will defer endoscopic eval given no continued/nasima s/s of GI bleeding (brown, heme negative stools), and pleural effusions. Pt also agreeable to defer further eval for this. - Monitor blood ct and transfusion prn - Monitor for further s/s of GI bleeding, recall GI if recurrence of black tarry stools or hematemesis/coffee ground emesis I saw and evaluated the patient.. She presented with shortness of breath, we are consulted for evaluation of anemia. It appears that the patient's polyps was wrong planning is at rail if its reality is given now still here. PE: No icterus No abdominal tenderness Impression: Bilateral pleural effusions, with regard to her anemia as the patient has heme-negative stools and brown stools I would not recommend upper endoscopy nor colonoscopy for the present time. We can certainly re-evaluate for endoscopic evalaution as an outpatinet once her pulmonary status has been maximized. History of Present Illness Reason for Consultation: Anemia, GI bleed Requesting Physician: Dr. Isaura Pretty Attending Physician: Dr. Genaro Jauregui History of Present Illness Pt is a 89 yo female who presented yesterday w co SOB, wheezing, dry cough. Did also note hx of black tarry stools 2 weeks ago x 1 week. On eval, noted that she has acute anemia w Hgb of 6 (baseline 13). BUN 23. Stools were brown and heme negative in ED. She was given 1U PRBC transfusion, Hgb up to 8 today. She had a BM yesterday which was brown stools. It's also noted that pt had elevated BNP, and CT lung showed mod to large pleural effusion, she is s/p R thoracentesis this AM. CT chest also showed RUL opacity of 3.9 x 2.4 cm, Pulmonology consulted to fannie. Last colonoscopy in 2010 - colon polyps EGD 2019: Hpylori gastritis, hiatal hernia Allergies Allergy/AdvReac Type Severity Reaction Status Date / Time bee venom protein (honey bee) Allergy Severe ANAPHYLAXIS Verified 06/24/21 12:19 Home Medications Medication Instructions Recorded Confirmed Type losartan 25 mg tablet 25 mg PO QAM 03/07/18 06/24/21 History aspirin 81 mg tablet,delayed 81 mg PO QAM 04/30/21 06/24/21 History release montelukast 10 mg tablet 10 mg PO HS 04/30/21 06/24/21 History tiotropium 2.5 mcg-olodaterol 2.5 2 puff INHALATION QAM 04/30/21 06/24/21 History mcg/actuation mist for inhalation (Stiolto Respimat) acetaminophen 325 mg tablet 650 mg PO Q4H PRN 06/24/21 06/24/21 History (Tylenol) calcium carbonate 500 mg calcium 500 mg PO BID 06/24/21 06/24/21 History (1,250 mg) chewable tablet docusate sodium 100 mg capsule 100 mg PO BID 06/24/21 06/24/21 History (Colace) donepezil 5 mg tablet 5 mg PO BID 06/24/21 06/24/21 History hydroxyzine HCl 25 mg tablet 25 mg PO BID 06/24/21 06/24/21 History lorazepam 0.5 mg tablet 0.5 mg PO BID 06/24/21 06/24/21 History pantoprazole 40 mg tablet,delayed 40 mg PO QAM 06/24/21 06/24/21 History release sertraline 50 mg tablet 50 mg PO QAM 06/24/21 06/24/21 History Patient History Medical History Abnormal CT of the chest Anxiety Asthma USING RESCUE INHALER FREQUENTLY/DAILY Asthma-COPD overlap syndrome Cancer BREAST CANCER-LEFT MASTECTOMY Chronic obstructive pulmonary disease Deep vein thrombosis 15 YEARS AGO S/P LEG SURGERY Dysphagia HX ESOPHAGEAL STRETCHING GERD (gastroesophageal reflux disease) History of pulmonary embolism Hypertension Osteoarthritis Prolapsed bladder Pulmonary nodule, right Rectal bleeding Surgical History History of cataract surgery RT/LEFT History of colonoscopy History of esophagogastroduodenoscopy (EGD) History of mastectomy LEFT (NO BP/LAB DRAWS) History of tonsillectomy History of tooth extraction History of total hysterectomy with bilateral salpingo-oophorectomy (BSO) History of total knee replacement LEFT/RT Family History Other No family history of adverse response to anesthesia Social History Smoking Status: Never smoker Second Hand Exposure: No; Hx Alcohol Use: No Hx Substance Use: No Preferred Language: Azeri Communication Ability: Effective Cloth Folder Machine Required: No Beliefs That Will Affect Care: Episcopal marital status: / Current Living Situation: Personal Care Facility Feels Safe at Home: Yes Safety Concerns: Feels Safe At This Time Childhood Exposure to Second-Hand Smoke: Yes Dental Care, Regularly: Yes Assistive Devices: Glasses and Walker Review of Systems Review of Systems: All systems reviewed & are unremarkable except as noted in HPI & below Physical Exam Constitutional: WD/WN, vitals as above well groomed, cooperative and comfortable Eyes: PERRL, conjunctivae normal, anicteric sclerae ENMT: external ear and nose normal, oropharynx normal Respiratory: normal respiratory effort, lungs clear to auscultation Cardiovascular: RRR, no murmur, no edema Gastrointestinal (Abdomen): normal bowel sounds, soft, nontender, no hepatosplenomegaly Skin: no rashes, warm and dry no jaundice Psychiatric: A+Ox3, euthymic affect Lymphatic: no lymphedema Results & Data ([facility]) Vital Signs (Past 12 Hours) Vital Signs Temp Pulse Pulse Resp BP Pulse Ox Pulse Ox 06/25/21 10:47 36.7 C 85 18 149/61 H 97 06/25/21 08:55 87 06/25/21 06:30 36.5 C 93 H 20 177/94 H 95 06/25/21 03:03 36.3 C L 96 H 20 155/74 H 97 06/25/21 01:19 88 06/25/21 00:00 98
[2021-06-25] MEDS ORDERED: METOPROLOL TARTRATE 1 MG/ML VIAL IV STA (14:57)
--- NOTE | 2021-06-25 15:46 | Hospitalist Progress Note ---
Date of Service June 25, 2021 Assessment & Plan (1) Shortness of breath: Plan: Possible acute diastolic heart failure Developed A. fib with RVR this evening Clinically much better A. fib with RVR Remains asymptomatic - Echo : Mild concentric LVH, LV wall motion is normal, LV systolic function is normal with EF 65 to 70%, LA severely dilated, severe mitral annular calcification, moderate mitral regurgitation, mild mitral stenosis, mild tricuspid regurgitation, severe pulmonary hypertension is present and small right pleural effusion - Initial trop negative, will add on BNP Electrolytes replace We will give 1 dose of intravenous Lopressor and may need to continue Will get cardiology evaluation tomorrow morning Heparin is not administered due to recent GI bleed (2) Pulmonary mass: Plan: - Admit to tele - Recent CT chest w contrast completed as outpatient on 06/21/21 Right upper lobe 39 x 24 mm opacity, nonspecific. Neoplasm, pneumonia, and/or atelectasis could have this appearance. Further evaluation is suggested. Moderate to large bilateral pleural effusions with compressive atelectasis posteriorly. Left mastectomy. Mild indeterminate age T1 superior vertebral endplate compression, new since 2019 - Pulmonology consultation for possible bronch with biopsy of mass? pleural effusion bilaterally - Appears on Epic record review that there have been multiple RUL nodules including this 29 mm one which has been presents since 2019, there is documentation regarding non-solid vs part-solid, vs ground glass, solid and cystic components surrounding the same lesion. - Lasix 40 mg IV ordered with first dose prior 1 U PRBCs transfusion, will continue with BID dosing for edema and 11 lb weight gain per pt report - Pt reports fever this morning of 99, currently afebrile, no leukocytosis, will obtain blood cultures -Pending -Will need continued surveillance as an outpatient for the pulmonary mass Bilateral pleural effusion -Could be secondary to cardiac causes and to rule out malignancy -Appreciate pulmonary input and recommendation-has had 800 mL of pleural fluid removed today -Awaiting results of the tests (3) Breast cancer, left: Plan: Originally diagnosed in 1972, status post left-sided radical mastectomy -Received XRT (4) Radiation pneumonitis: Plan: - 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 with [employer]IT[employer] educational manager - plan to see tomorrow - Continue protonix IV BID - Possibly contributing to increased shortness of breath, pt denies lightheadedness or dizziness -Clinically much better with hemoglobin at 8.7 following 1 unit of blood transfusion -Appreciate GI input and recommendation (7) Hypertension: Plan: - Continue on losartan 25 mg daily DVT ppx: - teds, scds, no chemical anticoagulation in the setting of possible GI bleed, pulmonary to see regarding possible procedure CODE: DNR/DNI Dispo: From home, likely to remain in the hospital x 1-2 days Admission and Anticipated Discharge Date Admission Date: June 24, 2021 Subjective 06/25/2021 Patient was seen and examined in medical telemetry unit She has been feeling much better following blood transfusion and thoracentesis Denies any significant chest pain and/or palpitation and no shortness of breath at rest Unfortunately she went into A. fib with RVR without any symptoms this afternoon Review of Systems Review of Systems: All systems reviewed and are unremarkable except as noted below Physical Exam Physical Exam: Lying in bed comfortably Constitutional: + ill appearing and average body habitus Eyes: PERRL, conjunctivae normal, anicteric sclerae ENMT: external ear and nose normal, oropharynx normal Neck: trachea midline, no thyromegaly Respiratory: no respiratory distress Auscultation: + diminished lung sounds (At the bases) and + crackles (Bibasilar crackles) Cardiovascular: Rate/Rhythm: regular rate and regular rhythm Heart Sounds: normal S1, normal S2 and + murmur (2/6 ESM over the precordium) Extremities: + edema (Trace edema bilaterally) Gastrointestinal (Abdomen): Inspection/Auscultation: normal bowel sounds; abdomen not distended Percussion/Palpation: abdomen soft; abdomen nontender Musculoskeletal: No acute arthritis in any joint Neurologic: Alert, awake and oriented x3. no focal sensory or no motor deficit appreciated Psychiatric: A+Ox3, euthymic affect Lymphatic: no cervical or axillary lymphadenopathy Results & Data Results & Data ([facility]) Vital Signs (Past 12 Hours) Vital Signs Temp Pulse Pulse Resp BP BP Pulse Ox 06/25/21 15:01 153 H 117/71 06/25/21 14:46 36.8 C 150 H 16 148/72 H 95 06/25/21 10:47 36.7 C 85 18 149/61 H 97 06/25/21 08:55 87 06/25/21 06:30 36.5 C 93 H 20 177/94 H 95 Laboratory Results Short CBC 06/24/21 06/25/21 Range/Units 22:47 10:08 WBC 6.25 (4.8-10.8) K/uL Hgb 7.4 L 8.7 L (12.0-16.0) g/dL Hct 23.7 L 27.9 L (37-47) % Plt Count 355 (130-400) K/uL BMP 06/25/21 10:08 Sodium 138 Potassium 3.5 D Chloride 99 Carbon Dioxide 28 BUN 20 Creatinine 0.67 Glucose 86 Calcium 9.0 Liver Function 06/25/21 Range/Units 10:08 Total Bilirubin 1.2 H D (0.2-1.0) mg/dl Direct Bilirubin 0.2 (0-0.2) mg/dl AST 19 (13-39) U/L ALT 13 (7-52) U/L Alkaline Phosphatase 54 (34-104) U/L Albumin 3.9 (3.4-5.0) gm/dl Medications Administered Current Inpatient Medications Acetaminophen (Acetaminophen 325 Mg Tab) 650 mg PO Q4H PRN PRN Reason: Pain Stop: 07/24/21 17:19 Aspirin (Aspirin 81 Mg Ectab) 81 mg PO QAM MARILIA Stop: 07/25/21 08:59 Last Admin: 06/25/21 08:00 Dose: 81 mg Documented by: Calcium Carbonate (Calcium Carbonate 500 Mg Chewable Tab) 500 mg PO BID MARILIA Stop: 07/24/21 20:59 Last Admin: 06/25/21 08:00 Dose: 500 mg Documented by: Docusate Sodium (Docusate Sodium 100 Mg Cap) 100 mg PO BID MARILIA Stop: 07/24/21 20:59 Last Admin: 06/25/21 08:00 Dose: 100 mg Documented by: Donepezil HCl (Donepezil Hcl 5 Mg Tab) 5 mg PO BID MARILIA Stop: 07/24/21 20:59 Last Admin: 06/25/21 08:00 Dose: 5 mg Documented by: Furosemide (Furosemide 40 Mg/4 Ml Vial) 40 mg IV DAILY MARILIA Stop: 07/25/21 08:59 Last Admin: 06/25/21 08:00 Dose: 40 mg Documented by: Hydroxyzine HCl (Hydroxyzine Hcl 25 Mg Tab) 25 mg PO BID MARILIA Stop: 07/24/21 20:59 Last Admin: 06/25/21 08:00 Dose: 25 mg Documented by: Sodium Chloride (Nss) 250 mls @ 15 mls/hr IV .[id number] PRN PRN Reason: For Transfusion Stop: 07/24/21 14:40 Pantoprazole Sodium 40 mg/ (Syringe) 10 mls @ 5 mls/min IV BID MARILIA Stop: 07/24/21 20:59 Last Admin: 06/25/21 08:01 Dose: 5 mls/min Documented by: Potassium Chloride (K Sd / Wtr) 10 meq in 100 mls @ 100 mls/hr IV Q1H [facility]; Protocol Stop: 06/25/21 17:29 Lorazepam (Lorazepam 0.5 Mg Tab) 0.5 mg PO BID [facility] Stop: 07/24/21 20:59 Last Admin: 06/25/21 08:00 Dose: 0.5 mg Documented by: Losartan Potassium (Losartan Potassium 25 Mg Tab) 25 mg PO QAM MARILIA Stop: 07/25/21 08:59 Last Admin: 06/25/21 08:00 Dose: 25 mg Documented by: Montelukast Sodium (Montelukast Sodium 10 Mg Tablet) 10 mg PO HS [facility] Stop: 07/24/21 20:59 Last Admin: 06/24/21 20:22 Dose: 10 mg Documented by: Ondansetron HCl (Ondansetron Inj 2 Mg/Ml 2 Ml Vial) 4 mg IV Q4H PRN PRN Reason: Nausea And Vomiting Stop: 07/24/21 17:19 Pantoprazole Sodium (Pantoprazole 40 Mg Tab) 40 mg PO QAM [facility] Stop: 07/25/21 08:59 Sertraline HCl (Sertraline Hcl 50 Mg Tablet) 50 mg PO QAM [facility] Stop: 07/25/21 08:59 Last Admin: 06/25/21 08:00 Dose: 50 mg Documented by: Umeclidinium/Vilanterol (Umeclidinium/Vilanterol 62.5/25mcg 7 Puffs/Inhaler) 1 puffs INH QAM [facility] Stop: 07/25/21 08:59 Last Admin: 06/25/21 08:01 Dose: 1 puffs Documented by:
--- NOTE | 2021-06-25 16:02 | Electrocardiogram Report ---
Test Reason : Blood Pressure : / mmHG Vent. Rate : 144 BPM Atrial Rate : 141 BPM P-R Int : 000 ms QRS Dur : 092 ms QT Int : 330 ms P-R-T Axes : 000 081 047 degrees QTc Int : 510 ms Atrial fibrillation with rapid ventricular response Marked ST abnormality, possible anterior subendocardial injury Abnormal ECG When compared with ECG of 24-JUN-2021 11:26, Atrial fibrillation has replaced Sinus rhythm Vent. rate has increased BY [address] now depressed in Inferior leads ST now depressed in Anterior leads Confirmed by Jamari Manzanares ([id number]) on 06/25/2021 4:02:03 PM Referred By: REFERRED SELF Confirmed By:Jamari Manzanares
[2021-06-25] MEDS ORDERED: METOPROLOL TARTRATE 1 MG/ML VIAL IV PRN (16:24)
[2021-06-25] MEDS ORDERED: LORazepam 2 MG/1 ML VIAL IV STA (16:27)
[2021-06-25] MEDS ORDERED: STAT IV Infusion **Titration per Protocol STA (16:30)
[2021-06-25] MEDS ORDERED: AMIODARONE / D5W 150 MG/100 ML BAG IV STA ×2 (16:30→22:33)
[2021-06-25] MEDS ORDERED: 0.2 MICRON FILTER SET 1 EA IV ONE ×2 (16:30→22:45)
[2021-06-25] MEDS ORDERED: AMIODARONE IV BOLUS & DRIP IV STA (16:30)
[2021-06-25] MEDS ORDERED: AMIODARONE / D5W 360 MG/200 ML BAG IV ONE ×2 (16:40→22:45)
[2021-06-25] MEDS: POTASSIUM CHLORIDE / WTR 10 MEQ/100 ML PLCT IV SCH ×2 (16:45→21:39)
--- NOTE | 2021-06-25 17:23 | Cardiology Progress Note ---
Date of Service June 25, 2021 Assessment & Plan (1) Acute heart failure with preserved ejection fraction: (2) Atrial fibrillation, rapid: (3) Anemia: Plan: 89-year-old female presents with progressive multifactorial dyspnea Thus far found to have profound anemia, hemoglobin 6.6, improved to 8.7 status posttransfusion. Monitoring on PPI therapy for now. She was found to have bilateral pleural effusions. A Her catheter was placed, and after receiving IV diuresis, 1.6 L of urine output noted in the last 24 hours. She states her presenting lower extremity edema has improved significantly. Her catheter already removed prior to my arrival. She then developed atrial fibrillation with rapid ventricular spots, 2-hour episode today. Echocardiogram reveals severe left atrial enlargement, mitral valve disease with severe calcification of the mitral valve apparatus, mild MS, moderate MR. 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 Patient also status post admission April,, with suspected intentional lorazepam overdose. Has had difficulty with grief since the of her several months ago. Plan: Given anemia, patient is not a candidate for anticoagulation. She has responded well to IV furosemide and at this time recommend continued furosemide 40 mg IV daily. Anticipate she will feel better after having received thoracentesis for 800 mils of fluid from the right lung earlier today. Fluid studies currently pending. Proceed with amiodarone infusion to help maintain sinus rhythm, as I am certain she will not tolerate heart rates in the 150s. Left atrial enlargement however makes me less optimistic that a rhythm control strategy will be successful. Start low-dose metoprolol as tolerated with caution given history of Aricept use. Dr Eloy [email or web address] 06/26/2021 Admission and Anticipated Discharge Date Admission Date: June 24, 2021 Jen Arevalo is an 89 year old female seen in cardiology consultation per the request of Dr Pretty for the evaluation of atrial fibrillation with rapid ventri cular rate and heart failure with preserved ejection fraction. She is a resident of [facility]. She describes present to the hospital due to progressive dyspnea on exertion. She was found to have severe anemia, presenting hemoglobin on 06/24/2021 of 6.6 g/dL, as well as bilateral pleural effusions. She underwent thoracentesis as performed by Dr. Oliver of pulmonary medicine earlier today yielding 800 mL of fluid. She notes interval improvement in her dyspnea and she is comfortable at rest at present. Today on telemetry she was noted to transition to atrial fibrillation with rapid ventricular response in the 150s. She subsequently converted back to sinus rhythm 2 hours later at 4:25 PM. At the time my assessment at just about 5 PM, the patient was back in sinus rhythm in the 70s. She states that she has not followed with cardiology in the past. She has a past history of breast cancer diagnosed in the 1970s and underwent radiation therapy. Past work-up in 2019 included a right upper lobe opacity with abnormal PET scan which was subsequently treated with radiation therapy. Patient tells me her of a long illness in January,. Review of Systems Review of Systems: All systems reviewed & are unremarkable except as noted in HPI & below Physical Exam Physical Exam: Temp Pulse Resp BP Pulse Ox 36.8 C 153 H 16 117/71 97 06/25/21 14:46 06/25/21 15:01 06/25/21 14:46 06/25/21 15:01 06/25/21 15:49 Constitutional: + thin and + frail appearing Respiratory: Reduced breath sounds bilaterally at the bases, left worse than right Cardiovascular: Heart Sounds: + murmur (1/6 systolic murmur) Extremities: no edema Gastrointestinal (Abdomen): normal bowel sounds, soft, nontender, no hepatosplenomegaly Neurologic: PERRL, EOMI, accommodation nl, no face palsy, no dysarthria Results & Data ([facility]) Vital Signs (Past 12 Hours) Vital Signs Temp Pulse Pulse Resp BP BP Pulse Ox 06/25/21 15:49 97 06/25/21 15:01 153 H 117/71 06/25/21 15:00 124/73 06/25/21 14:46 36.8 C 150 H 16 148/72 H 95 06/25/21 10:47 36.7 C 85 18 149/61 H 97 06/25/21 08:55 87 06/25/21 06:30 36.5 C 93 H 20 177/94 H 95 Laboratory Results Cardiac Enzymes 06/24/21 06/25/21 Range/Units 18:06 10:08 AST 19 (13-39) U/L B-Natriuretic Peptide 540 H (0-100) pg/ml Coagulation 06/24/21 06/25/21 Range/Units 18:06 10:08 PT 11.2 (9.0-12.0) Seconds B-Natriuretic Peptide 540 H (0-100) pg/ml CBC 06/24/21 06/25/21 Range/Units 22:47 10:08 WBC 6.25 (4.8-10.8) K/uL RBC 3.32 L (4.2-5.4) M/uL Hgb 7.4 L 8.7 L (12.0-16.0) g/dL Hct 23.7 L 27.9 L (37-47) % Plt Count 355 (130-400) K/uL Neut # (Auto) 5.07 (1.4-6.5) K/uL Lymph # (Auto) 0.50 L (1.2-3.4) K/uL [place] # (Auto) 0.58 (0.11-0.59) K/uL Eos # (Auto) 0.06 (0-0.5) K/uL Baso # (Auto) 0.03 (0-0.2) K/uL Comprehensive Metabolic Panel 06/25/21 Range/Units 10:08 Sodium 138 (136-145) mmol/L Potassium 3.5 D (3.5-5.1) mmol/L Chloride 99 (98-107) mmol/L Carbon Dioxide 28 (21-32) mmol/L BUN 20 (6-23) mg/dl Creatinine 0.67 (0.6-1.2) mg/dl Glucose 86 (70-99(Fasting)) mg/dl Calcium 9.0 (8.5-10.1) mg/dl Direct Bilirubin 0.2 (0-0.2) mg/dl AST 19 (13-39) U/L ALT 13 (7-52) U/L Alkaline Phosphatase 54 (34-104) U/L Total Protein 6.4 (6.0-8.3) gm/dl Albumin 3.9 (3.4-5.0) gm/dl Intake and Output 06/25/21 06/25/21 06/25/21 06:59 14:59 22:59 Intake Total 140 / 650 450 / 495 45 / 495 Output Total 300 / 1800 1325 / 1325 Balance -160 / -1150 -875 / -830 45 / -830 Intake: IV 45 / 45 Potassium Chloride / Wtr 10 meq 45 / 45 In 100 ml @ 100 mls/hr IV Q1H [facility] Rx#:[id number] Oral 140 / 340 450 / 450 Output: Urine Amount (Catheter) 300 / 1800 1325 / 1325 Her/Indwelling 300 / 1800 1325 / 1325 Diagnostic Findings EKG performed today 06/25/2021 at 1438 revealed atrial fibrillation 144 bpm, with anterolateral ST depression consistent with rate related ischemia. Compared to the previous tracing performed 06/24/2021 atrial fibrillation replaced sinus rhythm in the rate had increased by 54 bpm. Chest x-ray performed this morning 8:48 AM revealed interval improvement in the right base, persistent left pleural effusion noted. Transthoracic echocardiogram performed today and reviewed independently: Mild concentric left ventricular hypertrophy is present. The left ventricular wall motion is normal, LVEF normal to hyperdynamic, 65 - 70% Severe left atrial enlargement noted There is severe mitral annular calcification Moderate mitral regurgitation is present Mild mitral stenosis, mean gradient 8 mmHg Mild tricuspid vegetation Severe pulmonary hypertension is present with pulmonary artery systolic pressure estimated be 71 mmHg. Small right pleural effusion noted. (1) Anemia Anemia type: unspecified type Qualified Code(s): D64.9 - Anemia, unspecified
[2021-06-25] MEDS ORDERED: POTASSIUM CHLORIDE CRTAB 20 MEQ TABCR PO STA (17:34)
[2021-06-25] MEDS ORDERED: METOPROLOL TARTRATE 25 MG TAB PO ONE (17:51)
[2021-06-25] MEDS ORDERED: METOPROLOL TARTRATE 25 MG TAB PO SCH (21:00)
[2021-06-25] MEDS: MONTELUKAST SODIUM 10 MG TABLET PO SCH (21:09)
[2021-06-25] MEDS ORDERED: AMIODARONE / D5W 360 MG/200 ML BAG IV SCH (22:30)
[2021-06-26 08:06] LABS: Basophils # (auto) 0.02 K/uL (0-0.2); Basophils % (auto) 0.3 %; Eosinophils # (auto) 0.22 K/uL (0-0.5); Eosinophils % (auto) 3.1 %; Hematocrit (blood only) 26.3 % (37-47); Hemoglobin 8.1 g/dL (12.0-16.0); Immature Granulocytes # (auto) 0.02 K/uL (0.00-0.02); Immature Granulocytes % (auto) 0.3 %; Lymphocytes # (auto) 0.92 K/uL (1.2-3.4); Lymphocytes % (auto) 12.9 %; Mean Corpuscular Hemoglobin 25.9 pg (25-34); Mean Corpuscular Hgb Conc 30.8 g/dL (32-36); Mean Platelet Volume 10.2 fL (7.4-10.4); Monocytes % (auto) 11.2 %; Neutrophils # (auto) 5.15 K/uL (1.4-6.5); Neutrophils % (auto) 72.2 %; Platelet Count 312 K/uL (130-400); RDW Coefficient of Variation 17.5 % (11.5-14.5); RDW Standard Deviation 53.3 fL (36.4-46.3); Red Blood Count 3.13 M/uL (4.2-5.4); White Blood Count 7.13 K/uL (4.8-10.8)
[2021-06-26] MEDS: hydrOXYzine HCl 25 MG TAB PO SCH ×2 (08:16→21:45)
[2021-06-26] MEDS: ASPIRIN 81 MG ECTAB PO SCH (08:16)
[2021-06-26] MEDS: DOCUSATE SODIUM 100 MG CAP PO SCH ×2 (08:16→21:45)
[2021-06-26] MEDS: SERTRALINE HCL 50 MG TABLET PO SCH (08:16)
[2021-06-26] MEDS: CALCIUM CARBONATE 500 MG CHEWABLE TAB PO SCH ×2 (08:16→21:45)
[2021-06-26] MEDS: DONEPEZIL HCL 5 MG TAB PO SCH ×2 (08:16→21:45)
[2021-06-26] MEDS: LOSARTAN POTASSIUM 25 MG TAB PO SCH (08:16)
[2021-06-26] MEDS: UMECLIDINIUM/VILANTEROL 62.5/25MCG 7 PUFFS/INHALER INH SCH (08:17)
[2021-06-26] MEDS: PANTOprazole 40 MG in SYRINGE 0 ML IV SCH ×2 (08:17→21:45)
[2021-06-26] MEDS: FUROSEMIDE 40 MG/4 ML VIAL IV SCH (08:17)
[2021-06-26] MEDS: LORazepam 0.5 MG TAB PO SCH ×2 (08:23→21:45)
[2021-06-26 08:27] LABS: Hypochromasia Present; Polychromasia 1+
[2021-06-26 08:46] LABS: BUN Creatinine Ratio 34.9 (10-20); Calcium 8.4 mg/dl (8.5-10.1); Creatinine Clr Calc Pharmacy 53.5 ml/min; Est GFR (African American) 92.2 ml/min; Est GFR (Non-African American) 79.5 ml/min; Magnesium 1.7 mg/dl (1.7-2.4)
--- NOTE | 2021-06-26 09:09 | Pulmonology Progress Note ---
Date of Service June 26, 2021 Assessment & Plan (1) Abnormal CT scan of lung: (2) Anemia: Anemia type: unspecified type Qualified Code(s): D64.9 - Anemia, unspecified (3) Pleural effusion: Plan: Impression: 89-year-old female with moderate obstructive lung disease of unclear etiology, presenting with bilateral pleural effusions and peripheral edema with an echocardiogram last month showing mitral regurgitation mitral stenosis with preserved ejection fraction. 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 Recommendations: 1. Dyspnea: Improved with diuresis and postthoracentesis. Suspect related to fluid overload. 2. Bilateral pleural effusions: Fluid on the right is transudative, likely se condary to hydrostatic edema issues. Cytology pending and cultures pending. Chest x-ray yesterday demonstrated only a small amount of effusion on the left and would not pursue thoracentesis at this time unless the patient were to have increasing symptoms. 3. Abnormal CT scan: The area of consolidation in the right lung apex corresponds to area treated with SBRT for presumed lung cancer. It appears stable compared to prior CT scan from a month ago. No additional imaging indicated during this admission but she will continue to require radiographic surveillance under the direction of radiation oncology and pulmonary. 4. Obstructive lung disease: Unclear etiology. The patient is a non-smoker. She did have significant reversibility and the possibility of longstanding undertreated asthma is raised. She had difficulty completing PFTs previously and I do not think they need to be repeated at this point time. No indication for steroids. Continue current inhalers. Her CT scan does not demonstrate significant emphysematous changes. Unclear the utility of an aggressive work-up including high-resolution CT scan etc. in this 89-year-old with some underlying dementia. Would manage conservatively with goals towards symptom alleviation. 5. Recommend ambulation of the patient to assess for desaturation with physical activity. From a pulmonary perspective, the patient is doing reasonably well and may be able to be dismissed from the hospital within the next day or 2. Admission and Anticipated Discharge Date Admission Date: June 24, 2021 Subjective Patient seen and examined. She is feeling better this morning. She continues to require Ativan intermittently for her agitation. Her shortness of breath is much better after the thoracentesis. She does not report any chest pain or palpitations. No significant constitutional symptoms such as fevers chills or night sweats. Her lower extremity edema is improving. Review of Systems Review of Systems: All systems reviewed & are unremarkable except as noted in Subjective Physical Exam Constitutional: WD/WN, vitals as above Neck: trachea midline, no thyromegaly Respiratory: + labored breathing and + tachypneic Auscultation: + diminished lung sounds Cardiovascular: RRR, no murmur, no edema Gastrointestinal (Abdomen): normal bowel sounds, soft, nontender, no hepatosplenomegaly Musculoskeletal: Extremities: extremities normal to inspection Skin: no rashes, warm and dry Lymphatic: no cervical lymphadenopathy Results & Data Results & Data ([facility]) Vital Signs (Past 12 Hours) Vital Signs Temp Pulse Pulse Pulse Resp BP Pulse Ox 06/26/21 07:54 70 06/26/21 07:31 37.0 C 74 18 136/67 96 06/26/21 04:08 36.4 C L 73 18 134/71 95 06/25/21 22:48 36.4 C L 75 18 116/66 96 06/25/21 22:18 82 06/25/21 21:21 88 129/65 96 Laboratory Results 06/26/21 07:30 06/26/21 07:30 Pleural fluid studies: Differential 2% neutrophils, 55% lymphocytes, 1% eosinophils, 42% mesothelial cells pH 7.51 Total protein less than 3 LDH 51 Glucose 92 Gram stain no organisms, culture pending Diagnostic Findings Post thoracentesis chest x-ray reviewed. Improvement in pulmonary vascular congestion. Small left effusion. No obvious right-sided effusion PG Care Time/CCT Total # of Minutes Spent Total Time Spent with Patient: Total time spent is greater than 50% in coordination of care (as documented) at patient's floor/unit and/or counseling patient: Coding Level of Care Code 71074 Subseq Hosp Care Lvl [address] scan of lung R91.8 Anemia D64.9 Anemia type: unspecified type Pleural effusion J90
[2021-06-26] MEDS: METOPROLOL TARTRATE 25 MG TAB PO SCH ×2 (11:08→21:50)
--- NOTE | 2021-06-26 11:08 | Cardiology Progress Note ---
Date of Service June 26, 2021 Assessment & Plan (1) Acute heart failure with preserved ejection fraction: (2) Atrial fibrillation, rapid: (3) Anemia: Plan: 89-year-old female presents with progressive multifactorial dyspnea Thus far found to have profound anemia, hemoglobin 6.6, improved to 8.7 status posttransfusion. Monitoring on PPI therapy for now. She was found to have bilateral pleural effusions. A Her catheter was placed, and after receiving IV diuresis, 1.6 L of urine output noted in the last 24 hours. She states her presenting lower extremity edema has improved significantly. She then developed atrial fibrillation with rapid ventricular spots, 4-hour episode 06/25/2021 echocardiogram reveals severe left atrial enlargement, mitral valve disease with severe calcification of the mitral valve apparatus, mild MS, moderate MR. 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 Patient also status post admission April,, with suspected intentional lorazepam overdose. Has had difficulty with grief since the of her several months ago. Cardiology 06/26/2021 Impression/Plan: Given anemia, patient is not a candidate for anticoagulation. Patient converted to sinus rhythm with IV amiodarone but high likelihood for recurrence likely being driven by underlying pulmonary issues, anemia and diastolic LV dysfunction We will discontinue IV amiodarone after current bag infused begin oral amiodarone at 200 mg 3 times daily Continue IV furosemide this morning, hold tomorrow morning's dosing until evaluated. Expect oral dosing on discharge with or without possible spironolactone Admission and Anticipated Discharge Date Admission Date: June 24, 2021 Subjective Patient was seen and examined, chart, medications, telemetry reviewed Patient feels improved this morning. Spontaneously returned to sinus rhythm yesterday afternoon. No further recurrence of atrial arrhythmias. No chest pains or discomfort no dizziness or lightheadedness. No overt bleeding hemoglobin 8.1 Review of Systems Review of Systems: All systems reviewed & are unremarkable except as noted in Subjective Physical Exam Physical Exam: Temp Pulse Resp BP Pulse Ox 36.8 C 153 H 16 117/71 97 06/25/21 14:46 06/25/21 15:01 06/25/21 14:46 06/25/21 15:01 06/25/21 15:49 Constitutional: + thin and + frail appearing Eyes: PERRL, conjunctivae normal, anicteric sclerae ENMT: external ear and nose normal, oropharynx normal Neck: trachea midline, no thyromegaly Respiratory: Auscultation: no wheezes Cardiovascular: Rate/Rhythm: regular rate and regular rhythm Heart Sounds: + murmur (1/6 systolic murmur) Extremities: no edema Gastrointestinal (Abdomen): normal bowel sounds, soft, nontender, no hepatosplenomegaly Musculoskeletal: Head/Neck/Chest: normocephalic and head atraumatic Neurologic: PERRL, EOMI, accommodation nl, no face palsy, no dysarthria Results & Data ([facility]) Vital Signs (Past 12 Hours) Vital Signs Temp Pulse Pulse Pulse Resp BP Pulse Ox 06/26/21 07:54 70 06/26/21 07:31 37.0 C 74 18 136/67 96 06/26/21 04:08 36.4 C L 73 18 134/71 95 Laboratory Results Laboratory Results - last 24 hr 06/25/21 06/26/21 06/26/21 10:55 07:30 07:30 WBC 7.13 RBC 3.13 L Hgb 8.1 L Hct 26.3 L MCV 84.0 MCH 25.9 MCHC 30.8 L RDW Std Deviation 53.3 H RDW Coeff of [place] 17.5 H Plt Count 312 MPV 10.2 Immature Gran % (Auto) 0.3 Neut % (Auto) 72.2 Lymph % (Auto) 12.9 [place] % (Auto) 11.2 Eos % (Auto) 3.1 Baso % (Auto) 0.3 Neut # (Auto) 5.15 Lymph # (Auto) 0.92 L [place] # (Auto) 0.80 H Eos # (Auto) 0.22 Baso # (Auto) 0.02 Immature Gran # (Auto) 0.02 Polychromasia 1+ Hypochromasia Present Sodium Potassium Chloride Carbon Dioxide Anion Gap BUN Creatinine Est Cr Clr Drug Dosing Est GFR ( Amer) Est GFR (Non-Af Amer) BUN/Creatinine Ratio Glucose Calcium Magnesium TSH 0.722 Nasal Screen MRSA (PCR) Negative 06/26/21 07:30 WBC RBC Hgb Hct MCV MCH MCHC RDW Std Deviation RDW Coeff of [place] Plt Count MPV Immature Gran % (Auto) Neut % (Auto) Lymph % (Auto) [place] % (Auto) Eos % (Auto) Baso % (Auto) Neut # (Auto) Lymph # (Auto) [place] # (Auto) Eos # (Auto) Baso # (Auto) Immature Gran # (Auto) Polychromasia Hypochromasia Sodium 135 L Potassium 4.0 Chloride 100 Carbon Dioxide 28 Anion Gap 7 BUN 22 Creatinine 0.63 Est Cr Clr Drug Dosing 53.5 Est GFR ( Amer) 92.2 Est GFR (Non-Af Amer) 79.5 BUN/Creatinine Ratio 34.9 H Glucose 87 Calcium 8.4 L Magnesium 1.7 TSH Nasal Screen MRSA (PCR) Medications Administered Current Medications Acetaminophen (Acetaminophen 325 Mg Tab) 650 mg PO Q4H PRN PRN Reason: Pain Stop: 07/24/21 17:19 Amiodarone HCl (Amiodarone 200 Mg Tab) 200 mg PO TIDM [facility] Stop: 07/26/21 11:59 Aspirin (Aspirin 81 Mg Ectab) 81 mg PO QAM [facility] Stop: 07/25/21 08:59 Last Admin: 06/26/21 08:16 Dose: 81 mg Documented by: Calcium Carbonate (Calcium Carbonate 500 Mg Chewable Tab) 500 mg PO BID [facility] Stop: 07/24/21 20:59 Last Admin: 06/26/21 08:16 Dose: 500 mg Documented by: Docusate Sodium (Docusate Sodium 100 Mg Cap) 100 mg PO BID [facility] Stop: 07/24/21 20:59 Last Admin: 06/26/21 08:16 Dose: 100 mg Documented by: Donepezil HCl (Donepezil Hcl 5 Mg Tab) 5 mg PO BID [facility] Stop: 07/24/21 20:59 Last Admin: 06/26/21 08:16 Dose: 5 mg Documented by: Furosemide (Furosemide 40 Mg/4 Ml Vial) 40 mg IV DAILY [facility] Stop: 07/25/21 08:59 Last Admin: 06/26/21 08:17 Dose: 40 mg Documented by: Hydroxyzine HCl (Hydroxyzine Hcl 25 Mg Tab) 25 mg PO BID [facility] Stop: 07/24/21 20:59 Last Admin: 06/26/21 08:16 Dose: 25 mg Documented by: Sodium Chloride (Nss) 250 mls @ 15 mls/hr IV .[id number] PRN PRN Reason: For Transfusion Stop: 07/24/21 14:40 Pantoprazole Sodium 40 mg/ (Syringe) 10 mls @ 5 mls/min IV BID [facility] Stop: 07/24/21 20:59 Last Admin: 06/26/21 08:17 Dose: 5 mls/min Documented by: Amiodarone HCl/Dextrose (Nexterone / D5w) 360 mg in 200 mls @ 16.667 mls/hr IV .Q12H [facility] Stop: 07/25/21 22:29 Last Admin: 06/26/21 04:41 Dose: 0.5 mg/min, 16.7 mls/hr Documented by: Lorazepam (Lorazepam 0.5 Mg Tab) 0.5 mg PO BID [facility] Stop: 07/24/21 20:59 Last Admin: 06/26/21 08:23 Dose: 0.5 mg Documented by: Losartan Potassium (Losartan Potassium 25 Mg Tab) 25 mg PO QAM [facility] Stop: 07/25/21 08:59 Last Admin: 06/26/21 08:16 Dose: 25 mg Documented by: Metoprolol Tartrate (Metoprolol Tartrate 25 Mg Tab) 12.5 mg PO BID [facility] Stop: 07/26/21 08:59 Montelukast Sodium (Montelukast Sodium 10 Mg Tablet) 10 mg PO HS [facility] Stop: 07/24/21 20:59 Last Admin: 06/25/21 21:09 Dose: 10 mg Documented by: Ondansetron HCl (Ondansetron Inj 2 Mg/Ml 2 Ml Vial) 4 mg IV Q4H PRN PRN Reason: Nausea And Vomiting Stop: 07/24/21 17:19 Sertraline HCl (Sertraline Hcl 50 Mg Tablet) 50 mg PO QAM [facility] Stop: 07/25/21 08:59 Last Admin: 06/26/21 08:16 Dose: 50 mg Documented by: Umeclidinium/Vilanterol (Umeclidinium/Vilanterol 62.5/25mcg 7 Puffs/Inhaler) 1 puffs INH QAM [facility] Stop: 07/25/21 08:59 Last Admin: 06/26/21 08:17 Dose: 1 puffs Documented by: (1) Anemia Anemia type: unspecified type Qualified Code(s): D64.9 - Anemia, unspecified
[2021-06-26] MEDS: AMIODARONE 200 MG TAB PO SCH ×2 (12:20→17:34)
[2021-06-26] MEDS ORDERED: [UNRECOGNIZED DRUG - REMARK] ONE (16:00)
--- NOTE | 2021-06-26 16:28 | Hospitalist Progress Note ---
Date of Service June 26, 2021 Assessment & Plan (1) Shortness of breath: Plan: Acute diastolic heart failure Developed A. fib with RVR this evening of 06/25/2021 Clinically much better A. fib with RVR-reverted to sinus rhythm Remains asymptomatic - Echo : Mild concentric LVH, LV wall motion is normal, LV systolic function is normal with EF 65 to 70%, LA severely dilated, severe mitral annular calcification, moderate mitral regurgitation, mild mitral stenosis, mild tricuspid regurgitation, severe pulmonary hypertension is present and small right pleural effusion - Initial trop negative, will add on BNP Electrolytes replace We will give 1 dose of intravenous Lopressor and may need to continue Heparin is not administered due to recent GI bleed Appreciate cardiology input and recommendation Received intravenous amiodarone and reverted to sinus rhythm Has been on oral amiodarone and small dose of oral beta-sourav (2) Pulmonary mass: Plan: - Admit to tele - Recent CT chest w contrast completed as outpatient on 06/21/21 Right upper lobe 39 x 24 mm opacity, nonspecific. Neoplasm, pneumonia, and/or atelectasis could have this appearance. Further evaluation is suggested. Moderate to large bilateral pleural effusions with compressive atelectasis posteriorly. Left mastectomy. Mild indeterminate age T1 superior vertebral endplate compression, new since 2019 - Pulmonology consultation for possible bronch with biopsy of mass? pleural effusion bilaterally - Appears on Epic record review that there have been multiple RUL nodules including this 29 mm one which has been presents since 2019, there is documentation regarding non-solid vs part-solid, vs ground glass, solid and cystic components surrounding the same lesion. - Lasix 40 mg IV ordered with first dose prior 1 U PRBCs transfusion, will continue with BID dosing for edema and 11 lb weight gain per pt report - Pt reports fever this morning of 99, currently afebrile, no leukocytosis, will obtain blood cultures -Pending -Will need continued surveillance as an outpatient for the pulmonary mass Bilateral pleural effusion -Could be secondary to cardiac causes and to rule out malignancy -Appreciate pulmonary input and recommendation-has had 800 mL of pleural fluid removed today -Awaiting results of the tests-seems to be transudative -Awaiting cytology and culture (3) Breast cancer, left: Plan: Originally diagnosed in 1972, status post left-sided radical mastectomy -Received XRT (4) Radiation pneumonitis: Plan: - 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 with [employer] energy control officer - plan to see tomorrow - Continue protonix IV BID - Possibly contributing to increased shortness of breath, pt denies lightheadedness or dizziness -Clinically much better with hemoglobin at 8.7 following 1 unit of blood transfusion -Appreciate GI input and recommendation -Hemoglobin remains stable at 8.1, will check again tomorrow (7) Hypertension: Plan: - Continue on losartan 25 mg daily -Metoprolol tartrate 12.5 mg p.o. twice daily DVT ppx: - teds, scds, no chemical anticoagulation in the setting of possible GI bleed, pulmonary to see regarding possible procedure CODE: DNR/DNI Dispo: From home, likely to remain in the hospital x 1-2 days Admission and Anticipated Discharge Date Admission Date: June 24, 2021 Subjective 06/25/2021 Patient was seen and examined in medical telemetry unit She has been feeling much better following blood transfusion and thoracentesis Denies any significant chest pain and/or palpitation and no shortness of breath at rest Unfortunately she went into A. fib with RVR without any symptoms this afternoon 06/26/2021 The patient was seen and examined in telemetry unit She reverted to sinus rhythm and denies any significant palpitation and no shortness of breath She remains very anxious though Review of Systems Review of Systems: All systems reviewed and are unremarkable except as noted below Neurologic: Alert, awake. Very anxious Physical Exam Physical Exam: Lying in bed comfortably Constitutional: + ill appearing and average body habitus Eyes: PERRL, conjunctivae normal, anicteric sclerae ENMT: external ear and nose normal, oropharynx normal Neck: trachea midline, no thyromegaly Respiratory: no respiratory distress Auscultation: + diminished lung sounds (At the bases) and + crackles (Bibasilar crackles) Cardiovascular: Rate/Rhythm: regular rate and regular rhythm Heart Sounds: normal S1, normal S2 and + murmur (2/6 ESM over the precordium) Extremities: + edema (Trace edema bilaterally) Gastrointestinal (Abdomen): Inspection/Auscultation: normal bowel sounds; abdomen not distended Percussion/Palpation: abdomen soft; abdomen nontender Musculoskeletal: No acute arthritis in any joint Psychiatric: A+Ox3, euthymic affect Lymphatic: no cervical or axillary lymphadenopathy Results & Data Results & Data ([facility]) Vital Signs (Past 12 Hours) Vital Signs Temp Pulse Pulse Pulse Resp BP Pulse Ox 06/26/21 15:40 06/26/21 15:33 36.8 C 87 18 129/67 95 06/26/21 14:20 82 06/26/21 11:34 36.6 C 73 18 122/54 L 97 06/26/21 07:54 70 06/26/21 07:45 06/26/21 07:31 37.0 C 74 18 136/67 96 Pulse Ox 06/26/21 15:40 95 06/26/21 15:33 06/26/21 14:20 06/26/21 11:34 06/26/21 07:54 06/26/21 07:45 95 06/26/21 07:31 Laboratory Results Short CBC 06/26/21 Range/Units 07:30 WBC 7.13 (4.8-10.8) K/uL Hgb 8.1 L (12.0-16.0) g/dL Hct 26.3 L (37-47) % Plt Count 312 (130-400) K/uL BMP 06/26/21 07:30 Sodium 135 L Potassium 4.0 Chloride 100 Carbon Dioxide 28 BUN 22 Creatinine 0.63 Glucose 87 Calcium 8.4 L Medications Administered Current Inpatient Medications Acetaminophen (Acetaminophen 325 Mg Tab) 650 mg PO Q4H PRN PRN Reason: Pain Stop: 07/24/21 17:19 Amiodarone HCl (Amiodarone 200 Mg Tab) 200 mg PO TIDM [facility] Stop: 07/26/21 11:59 Last Admin: 06/26/21 12:20 Dose: 200 mg Documented by: Aspirin (Aspirin 81 Mg Ectab) 81 mg PO QAM [facility] Stop: 07/25/21 08:59 Last Admin: 06/26/21 08:16 Dose: 81 mg Documented by: Calcium Carbonate (Calcium Carbonate 500 Mg Chewable Tab) 500 mg PO BID [facility] Stop: 07/24/21 20:59 Last Admin: 06/26/21 08:16 Dose: 500 mg Documented by: Docusate Sodium (Docusate Sodium 100 Mg Cap) 100 mg PO BID [facility] Stop: 07/24/21 20:59 Last Admin: 06/26/21 08:16 Dose: 100 mg Documented by: Donepezil HCl (Donepezil Hcl 5 Mg Tab) 5 mg PO BID [facility] Stop: 07/24/21 20:59 Last Admin: 06/26/21 08:16 Dose: 5 mg Documented by: Furosemide (Furosemide 40 Mg/4 Ml Vial) 40 mg IV DAILY [facility] Stop: 07/25/21 08:59 Last Admin: 06/26/21 08:17 Dose: 40 mg Documented by: Hydroxyzine HCl (Hydroxyzine Hcl 25 Mg Tab) 25 mg PO BID [facility] Stop: 07/24/21 20:59 Last Admin: 06/26/21 08:16 Dose: 25 mg Documented by: Sodium Chloride (Nss) 250 mls @ 15 mls/hr IV .[id number] PRN PRN Reason: For Transfusion Stop: 07/24/21 14:40 Pantoprazole Sodium 40 mg/ (Syringe) 10 mls @ 5 mls/min IV BID [facility] Stop: 07/24/21 20:59 Last Admin: 06/26/21 08:17 Dose: 5 mls/min Documented by: Lorazepam (Lorazepam 0.5 Mg Tab) 0.5 mg PO BID [facility] Stop: 07/24/21 20:59 Last Admin: 06/26/21 08:23 Dose: 0.5 mg Documented by: Losartan Potassium (Losartan Potassium 25 Mg Tab) 25 mg PO QAM [facility] Stop: 07/25/21 08:59 Last Admin: 06/26/21 08:16 Dose: 25 mg Documented by: Metoprolol Tartrate (Metoprolol Tartrate 25 Mg Tab) 12.5 mg PO BID [facility] Stop: 07/26/21 08:59 Last Admin: 06/26/21 11:08 Dose: 12.5 mg Documented by: Montelukast Sodium (Montelukast Sodium 10 Mg Tablet) 10 mg PO [facility] Stop: 07/24/21 20:59 Last Admin: 06/25/21 21:09 Dose: 10 mg Documented by: Ondansetron HCl (Ondansetron Inj 2 Mg/Ml 2 Ml Vial) 4 mg IV Q4H PRN PRN Reason: Nausea And Vomiting Stop: 07/24/21 17:19 Sertraline HCl (Sertraline Hcl 50 Mg Tablet) 50 mg PO [facility] Stop: 07/25/21 08:59 Last Admin: 06/26/21 08:16 Dose: 50 mg Documented by: Umeclidinium/Vilanterol (Umeclidinium/Vilanterol 62.5/25mcg 7 Puffs/Inhaler) 1 puffs INH [facility] Stop: 07/25/21 08:59 Last Admin: 06/26/21 08:17 Dose: 1 puffs Documented by:
[2021-06-26] MEDS: MONTELUKAST SODIUM 10 MG TABLET PO SCH (21:45)
[2021-06-27] MEDS ORDERED: ZOLPIDEM TARTRATE 5 MG TAB PO STA (02:15)
[2021-06-27 07:40] LABS: Basophils # (auto) 0.02 K/uL (0-0.2); Basophils % (auto) 0.3 %; Eosinophils # (auto) 0.16 K/uL (0-0.5); Eosinophils % (auto) 2.5 %; Hematocrit (blood only) 27.9 % (37-47); Hemoglobin 8.4 g/dL (12.0-16.0); Immature Granulocytes # (auto) 0.01 K/uL (0.00-0.02); Immature Granulocytes % (auto) 0.2 %; Lymphocytes # (auto) 0.95 K/uL (1.2-3.4); Lymphocytes % (auto) 15.1 %; Mean Corpuscular Hemoglobin 25.1 pg (25-34); Mean Corpuscular Hgb Conc 30.1 g/dL (32-36); Mean Corpuscular Volume 83.5 fL (80-100); Mean Platelet Volume 10.1 fL (7.4-10.4); Monocytes # (auto) 0.81 K/uL (0.11-0.59); Monocytes % (auto) 12.8 %; Neutrophils # (auto) 4.36 K/uL (1.4-6.5); Neutrophils % (auto) 69.1 %; Platelet Count 290 K/uL (130-400); RDW Coefficient of Variation 17.9 % (11.5-14.5); RDW Standard Deviation 55.5 fL (36.4-46.3); Red Blood Count 3.34 M/uL (4.2-5.4); White Blood Count 6.31 K/uL (4.8-10.8)
[2021-06-27 08:03] LABS: BUN Creatinine Ratio 33.9 (10-20); Calcium 8.3 mg/dl (8.5-10.1); Creatinine Clr Calc Pharmacy 54.4 ml/min; Est GFR (African American) 92.7 ml/min; Est GFR (Non-African American) 79.9 ml/min; Potassium 3.6 mmol/L (3.5-5.1)
--- NOTE | 2021-06-27 08:52 | Pulmonology Progress Note ---
Date of Service June 27, 2021 Assessment & Plan (1) Abnormal CT scan of lung: (2) Anemia: Anemia type: unspecified type Qualified Code(s): D64.9 - Anemia, unspecified (3) Pleural effusion: Plan: Impression: 89-year-old female with moderate obstructive lung disease of unclear etiology, presenting with bilateral pleural effusions and peripheral edema with an echocardiogram last month showing mitral regurgitation mitral stenosis with preserved ejection fraction. She is status post thoracentesis with fluid revealing lymphocytic transudate. 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 Recommendations: 1. Dyspnea: Improved with diuresis and postthoracentesis. Suspect related to fluid overload. 2. Bilateral pleural effusions: Fluid on the right is transudative, likely secondary to hydrostatic edema issues. Cytology pending and cultures negative to date. Chest x-ray yesterday demonstrated only a small amount of effusion on the left and would not pursue thoracentesis at this time unless the patient were to have increasing symptoms. 3. Abnormal CT scan: The area of consolidation in the right lung apex corresponds to area treated with SBRT for presumed lung cancer. It appears stable compared to prior CT scan from a month ago. No additional imaging indicated during this admission but she will continue to require radiographic surveillance under the direction of radiation oncology and pulmonary. 4. Obstructive lung disease: Unclear etiology. The patient is a non-smoker. She did have significant reversibility and the possibility of longstanding undertreated asthma is raised. She had difficulty completing PFTs previously and I do not think they need to be repeated at this point time. No indication for steroids. Continue current inhalers. Her CT scan does not demonstrate significant emphysematous changes. Unclear the utility of an aggressive work-up including high-resolution CT scan etc. in this 89-year-old with some underlying dementia. Would manage conservatively with goals towards symptom alleviation. 5. Recommend ambulation of the patient to assess for desaturation with physical activity. From a pulmonary perspective, the patient is stable to consider discharge. Pulmonary will sign off at this point time. Feel free to contact us with additional questions or concerns Admission and Anticipated Discharge Date Admission Date: June 24, 2021 Subjective Patient seen and examined. EMR reviewed. The patient states that she is feeling better. Her breathing appears much more comfortable. She still having any chest pain or palpitations. Her lower extremity is improved with diuresis. She denies fevers chills or night sweats. She is overall feeling well. Review of Systems Review of Systems: All systems reviewed & are unremarkable except as noted in Subjective Physical Exam Constitutional: WD/WN, vitals as above Neck: trachea midline, no thyromegaly Respiratory: no labored breathing and not tachypneic Auscultation: lungs clear to auscultation bilaterally; no crackles and no wheezes Cardiovascular: RRR, no murmur, no edema Gastrointestinal (Abdomen): normal bowel sounds, soft, nontender, no hepatosplenomegaly Musculoskeletal: Extremities: extremities normal to inspection Skin: no rashes, warm and dry Lymphatic: no cervical lymphadenopathy Results & Data Results & Data ([facility]) Vital Signs (Past 12 Hours) Vital Signs Temp Pulse Pulse Pulse Resp BP BP 06/27/21 08:00 36.6 C 80 18 145/66 H 06/27/21 07:54 84 06/27/21 03:58 36.4 C L 80 14 145/67 H 06/26/21 23:03 36.6 C 72 16 107/58 L 06/26/21 22:27 88 06/26/21 21:48 36.8 C 97 H 18 129/62 Pulse Ox 06/27/21 08:00 97 06/27/21 07:54 06/27/21 03:58 96 06/26/21 23:03 96 06/26/21 22:27 06/26/21 21:48 96 Laboratory Results 06/27/21 07:03 06/27/21 07:03 Diagnostic Findings No new imaging PG Care Time/CCT Total # of Minutes Spent Total Time Spent with Patient: Total time spent is greater than 50% in coordination of care (as documented) at patient's floor/unit and/or counseling patient: Coding Level of Care Code 88636 Subseq Hosp Care Lvl [address] scan of lung R91.8 Anemia D64.9 Anemia type: unspecified type Pleural effusion J90
[2021-06-27] MEDS: PANTOprazole 40 MG in SYRINGE 0 ML IV SCH ×2 (09:35→20:42)
[2021-06-27] MEDS: METOPROLOL TARTRATE 25 MG TAB PO SCH ×2 (09:35→20:40)
[2021-06-27] MEDS: DONEPEZIL HCL 5 MG TAB PO SCH ×2 (09:36→20:41)
[2021-06-27] MEDS: AMIODARONE 200 MG TAB PO SCH ×3 (09:36→17:17)
[2021-06-27] MEDS: LOSARTAN POTASSIUM 25 MG TAB PO SCH ×2 (09:36→20:41)
[2021-06-27] MEDS: hydrOXYzine HCl 25 MG TAB PO SCH ×2 (09:36→21:15)
[2021-06-27] MEDS: UMECLIDINIUM/VILANTEROL 62.5/25MCG 7 PUFFS/INHALER INH SCH (09:37)
[2021-06-27] MEDS: ASPIRIN 81 MG ECTAB PO SCH (09:37)
[2021-06-27] MEDS: SERTRALINE HCL 50 MG TABLET PO SCH (09:37)
[2021-06-27] MEDS: LORazepam 0.5 MG TAB PO SCH ×2 (09:42→20:41)
[2021-06-27] MEDS: DOCUSATE SODIUM 100 MG CAP PO SCH ×2 (09:42→20:46)
[2021-06-27] MEDS: CALCIUM CARBONATE 500 MG CHEWABLE TAB PO SCH ×2 (09:42→21:15)
--- NOTE | 2021-06-27 11:42 | Cardiology Progress Note ---
Date of Service June 27, 2021 Assessment & Plan (1) Acute heart failure with preserved ejection fraction: (2) Atrial fibrillation, rapid: (3) Anemia: Plan: 89-year-old female presents with progressive multifactorial dyspnea Thus far found to have profound anemia, hemoglobin 6.6, improved to 8.7 status posttransfusion. Monitoring on PPI therapy for now. She was found to have bilateral pleural effusions. A Her catheter was placed, and after receiving IV diuresis, 1.6 L of urine output noted in the last 24 hours. She states her presenting lower extremity edema has improved significantly. She then developed atrial fibrillation with rapid ventricular spots, 4-hour episode 06/25/2021 echocardiogram reveals severe left atrial enlargement, mitral valve disease with severe calcification of the mitral valve apparatus, mild MS, moderate MR. 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 Patient also status post admission April,, with suspected intentional lorazepam overdose. Has had difficulty with grief since the of her several months ago. Cardiology 06/27/2021 Impression/Plan: 89-year-old female who presented with multifactorial dyspnea with signs and symptoms of decompensated congestive heart failure with bilateral pleural effusions with preserved ejection fraction Course complicated by transient atrial fibrillation converting to sinus rhythm with IV amiodarone No further atrial fibrillation will continue oral amiodarone, repeat EKG in a.m. maintain telemetry till a.m. Current anticoagulation contraindicated We will increase losartan to 25 mg twice per day for blood pressure control Add low-dose oral diuretic today with furosemide 20 mg p.o. daily spironolactone 12.5 mg/day Admission and Anticipated Discharge Date Admission Date: June 24, 2021 Subjective Patient seen and examined, chart, medications, telemetry reviewed overall feels improved status post diuresis and thoracentesis. No worsening dyspnea. No dizziness or lightheadedness. No chest pain. Physical Exam Physical Exam: Temp Pulse Resp BP Pulse Ox 36.8 C 153 H 16 117/71 97 06/25/21 14:46 06/25/21 15:01 06/25/21 14:46 06/25/21 15:01 06/25/21 15:49 Constitutional: + thin and + frail appearing Eyes: PERRL, conjunctivae normal, anicteric sclerae ENMT: external ear and nose normal, oropharynx normal Neck: trachea midline, no thyromegaly Respiratory: Auscultation: no wheezes Cardiovascular: Rate/Rhythm: regular rate and regular rhythm Heart Sounds: + murmur (1/6 systolic murmur) Extremities: no edema Gastrointestinal (Abdomen): normal bowel sounds, soft, nontender, no hepatosplenomegaly Musculoskeletal: Head/Neck/Chest: normocephalic and head atraumatic Neurologic: PERRL, EOMI, accommodation nl, no face palsy, no dysarthria Results & Data ([facility]) Vital Signs (Past 12 Hours) Vital Signs Temp Pulse Pulse Pulse Resp BP BP 06/27/21 11:10 36.7 C 79 19 152/68 H 06/27/21 08:00 36.6 C 80 18 145/66 H 06/27/21 07:54 84 06/27/21 03:58 36.4 C L 80 14 145/67 H Pulse Ox 06/27/21 11:10 96 06/27/21 08:00 97 06/27/21 07:54 06/27/21 03:58 96 Laboratory Results Laboratory Results - last 24 hr 06/27/21 06/27/21 07:03 07:03 WBC 6.31 RBC 3.34 L Hgb 8.4 L Hct 27.9 L MCV 83.5 MCH 25.1 MCHC 30.1 L RDW Std Deviation 55.5 H RDW Coeff of [place] 17.9 H Plt Count 290 MPV 10.1 Immature Gran % (Auto) 0.2 Neut % (Auto) 69.1 Lymph % (Auto) 15.1 [place] % (Auto) 12.8 Eos % (Auto) 2.5 Baso % (Auto) 0.3 Neut # (Auto) 4.36 Lymph # (Auto) 0.95 L [place] # (Auto) 0.81 H Eos # (Auto) 0.16 Baso # (Auto) 0.02 Immature Gran # (Auto) 0.01 Sodium 136 Potassium 3.6 Chloride 100 Carbon Dioxide 30 Anion Gap 6 BUN 21 Creatinine 0.62 Est Cr Clr Drug Dosing 54.4 Est GFR ( Amer) 92.7 Est GFR (Non-Af Amer) 79.9 BUN/Creatinine Ratio 33.9 H Glucose 87 Calcium 8.3 L (1) Anemia Anemia type: unspecified type Qualified Code(s): D64.9 - Anemia, unspecified
[2021-06-27] MEDS: FUROSEMIDE 20 MG TAB PO SCH (13:17)
[2021-06-27] MEDS: SPIRONOLACTONE 12.5 MG TAB PO SCH (13:17)
--- NOTE | 2021-06-27 14:31 | Hospitalist Progress Note ---
Date of Service June 27, 2021 Assessment & Plan (1) Shortness of breath: (2) Pulmonary mass: Plan: - Admit to tele - Recent CT chest w contrast completed as outpatient on 06/21/21 Right upper lobe 39 x 24 mm opacity, nonspecific. Neoplasm, pneumonia, and/or atelectasis could have this appearance. Further evaluation is suggested. Moderate to large bilateral pleural effusions with compressive atelectasis posteriorly. Left mastectomy. Mild indeterminate age T1 superior vertebral endplate compression, new since 2019 - Pulmonology consultation for possible bronch with biopsy of mass? pleural effusion bilaterally - Appears on Epic record review that there have been multiple RUL nodules including this 29 mm one which has been presents since 2019, there is documentation regarding non-solid vs part-solid, vs ground glass, solid and cystic components surrounding the same lesion. 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 controller - plan to see tomorrow - Continue protonix IV BID - Possibly contributing to increased shortness of breath, pt denies lightheadedness or dizziness (7) Hypertension: Plan: - Continue on losartan 25 mg daily DVT ppx: - teds, scds, no chemical anticoagulation in the setting of possible GI bleed, pulmonary to see regarding possible procedure CODE: DNR/DNI Dispo: From home, likely to remain in the hospital x 1-2 days Admission and Anticipated Discharge Date Admission Date: June 24, 2021 Subjective 06/25/2021 Patient was seen and examined in medical telemetry unit She has been feeling much better following blood transfusion and thoracentesis Denies any significant chest pain and/or palpitation and no shortness of breath at rest Unfortunately she went into A. fib with RVR without any symptoms this afternoon 06/26/2021 The patient was seen and examined in telemetry unit She reverted to sinus rhythm and denies any significant palpitation and no shortness of breath She remains very anxious though Review of Systems Review of Systems: All systems reviewed and are unremarkable except as noted below Neurologic: Alert, awake. Very anxious Physical Exam Physical Exam: Lying in bed comfortably Constitutional: + ill appearing and average body habitus Eyes: PERRL, conjunctivae normal, anicteric sclerae ENMT: external ear and nose normal, oropharynx normal Neck: trachea midline, no thyromegaly Respiratory: no respiratory distress Auscultation: + diminished lung sounds (At the bases) and + crackles (Bibasilar crackles) Cardiovascular: Rate/Rhythm: regular rate and regular rhythm Heart Sounds: normal S1, normal S2 and + murmur (2/6 ESM over the precordium) Extremities: + edema (Trace edema bilaterally) Gastrointestinal (Abdomen): Inspection/Auscultation: normal bowel sounds; abdomen not distended Percussion/Palpation: abdomen soft; abdomen nontender Psychiatric: A+Ox3, euthymic affect Lymphatic: no cervical or axillary lymphadenopathy Results & Data Results & Data ([facility]) Vital Signs (Past 12 Hours) Vital Signs Temp Pulse Pulse Pulse Resp BP BP 06/27/21 11:10 36.7 C 79 19 152/68 H 06/27/21 08:00 36.6 C 80 18 145/66 H 06/27/21 07:54 84 06/27/21 03:58 36.4 C L 80 14 145/67 H Pulse Ox 06/27/21 11:10 96 06/27/21 08:00 97 06/27/21 07:54 06/27/21 03:58 96
--- NOTE | 2021-06-27 14:45 | Hospitalist Progress Note ---
Date of Service June 27, 2021 Assessment & Plan (1) Atrial fibrillation, rapid: (2) Acute heart failure with preserved ejection fraction: (3) Pleural effusion: (4) Abnormal CT scan of lung: (5) Anemia: (6) Breast cancer, left: (7) Hypertension: Plan: (1) Shortness of breath: Plan: Acute diastolic heart failure Developed A. fib with RVR this evening of 06/25/2021 Clinically much better A. fib with RVR-reverted to sinus rhythm Remains asymptomatic - Echo : Mild concentric LVH, LV wall motion is normal, LV systolic function is normal with EF 65 to 70%, LA severely dilated, severe mitral annular calcification, moderate mitral regurgitation, mild mitral stenosis, mild tricuspid regurgitation, severe pulmonary hypertension is present and small right pleural effusion - Initial trop negative, will add on BNP Electrolytes replace We will give 1 dose of intravenous Lopressor and may need to continue Heparin is not administered due to recent GI bleed Appreciate cardiology input and recommendation Received intravenous amiodarone and reverted to sinus rhythm Has been on oral amiodarone and small dose of oral beta-sourav Remains medically stable without any cardiac symptoms (2) Pulmonary mass: Plan: - Admit to tele - Recent CT chest w contrast completed as outpatient on 06/21/21 Right upper lobe 39 x 24 mm opacity, nonspecific. Neoplasm, pneumonia, and/or atelectasis could have this appearance. Further evaluation is suggested. Moderate to large bilateral pleural effusions with compressive atelectasis posteriorly. Left mastectomy. Mild indeterminate age T1 superior vertebral endplate compression, new since 2019 - Pulmonology consultation for possible bronch with biopsy of mass? pleural effusion bilaterally - Appears on Epic record review that there have been multiple RUL nodules including this 29 mm one which has been presents since 2019, there is documentation regarding non-solid vs part-solid, vs ground glass, solid and cystic components surrounding the same lesion. - Lasix 40 mg IV ordered with first dose prior 1 U PRBCs transfusion, will continue with BID dosing for edema and 11 lb weight gain per pt report - Pt reports fever this morning of 99, currently afebrile, no leukocytosis, will obtain blood cultures -Pending -Will need continued surveillance as an outpatient for the pulmonary mass Bilateral pleural effusion -Could be secondary to cardiac causes and to rule out malignancy -Appreciate pulmonary input and recommendation-has had 800 mL of pleural fluid removed today -Awaiting results of the tests-seems to be transudative -Awaiting cytology and culture (3) Breast cancer, left: Plan: Originally diagnosed in 1973, status post left-sided radical mastectomy -Received XRT (4) Radiation pneumonitis: Plan: - 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 with COLOR SPRAYER lead mason tender - plan to see tomorrow - Continue protonix IV BID - Possibly contributing to increased shortness of breath, pt denies lightheadedness or dizziness -Clinically much better with hemoglobin at 8.7 following 1 unit of blood transfusion -Appreciate GI input and recommendation -Hemoglobin remains stable at 8.1, will check again tomorrow-8.4 as of 06/27/2021 (7) Hypertension: Plan: - Continue on losartan 25 mg daily -Metoprolol tartrate 12.5 mg p.o. twice daily DVT ppx: - teds, scds, no chemical anticoagulation in the setting of possible GI bleed, pulmonary to see regarding possible procedure CODE: DNR/DNI Dispo: From home, likely to remain in the hospital x 1-2 days Likely discharge tomorrow Admission and Anticipated Discharge Date Admission Date: June 24, 2021 Admission and Anticipated Discharge Date Admission Date: June 24, 2021 Subjective 06/25/2021 Patient was seen and examined in medical telemetry unit She has been feeling much better following blood transfusion and thoracentesis Denies any significant chest pain and/or palpitation and no shortness of breath at rest Unfortunately she went into A. fib with RVR without any symptoms this afternoon 06/26/2021 The patient was seen and examined in telemetry unit She reverted to sinus rhythm and denies any significant palpitation and no shortness of breath She remains very anxious though 06/27/2021 The patient was seen and examined in telemetry unit She has been in sinus rhythm without any cardiac symptoms Sitting on a chair outside bed without any symptoms Review of Systems Review of Systems: All systems reviewed and are unremarkable except as noted below Physical Exam Physical Exam: Lying in bed comfortably Constitutional: + ill appearing and average body habitus Eyes: PERRL, conjunctivae normal, anicteric sclerae ENMT: external ear and nose normal, oropharynx normal Neck: trachea midline, no thyromegaly Respiratory: no respiratory distress Auscultation: + diminished lung sounds (At the bases) and + crackles (Bibasilar crackles) Cardiovascular: Rate/Rhythm: regular rate and regular rhythm Heart Sounds: normal S1, normal S2 and + murmur (2/6 ESM over the precordium) Extremities: + edema (Trace edema bilaterally) Gastrointestinal (Abdomen): Inspection/Auscultation: normal bowel sounds; abdomen not distended Percussion/Palpation: abdomen soft; abdomen nontender Musculoskeletal: No acute arthritis in any joint Neurologic: Alert, awake and oriented x3 Psychiatric: A+Ox3, euthymic affect Lymphatic: no cervical or axillary lymphadenopathy Results & Data Results & Data ([facility]) Vital Signs (Past 12 Hours) Vital Signs Temp Pulse Pulse Pulse Resp BP BP 06/27/21 11:10 36.7 C 79 19 152/68 H 06/27/21 08:00 36.6 C 80 18 145/66 H 06/27/21 07:54 84 06/27/21 03:58 36.4 C L 80 14 145/67 H Pulse Ox 06/27/21 11:10 96 06/27/21 08:00 97 06/27/21 07:54 06/27/21 03:58 96 Laboratory Results Short CBC 06/27/21 Range/Units 07:03 WBC 6.31 (4.8-10.8) K/uL Hgb 8.4 L (12.0-16.0) g/dL Hct 27.9 L (37-47) % Plt Count 290 (130-400) K/uL BMP 06/27/21 07:03 Sodium 136 Potassium 3.6 Chloride 100 Carbon Dioxide 30 BUN 21 Creatinine 0.62 Glucose 87 Calcium 8.3 L Medications Administered Current Inpatient Medications Acetaminophen (Acetaminophen 325 Mg Tab) 650 mg PO Q4H PRN PRN Reason: Pain Stop: 07/24/21 17:19 Amiodarone HCl (Amiodarone 200 Mg Tab) 200 mg PO TIDM [facility] Stop: 07/26/21 11:59 Last Admin: 06/27/21 13:16 Dose: 200 mg Documented by: Aspirin (Aspirin 81 Mg Ectab) 81 mg PO QAM [facility] Stop: 07/25/21 08:59 Last Admin: 06/27/21 09:37 Dose: 81 mg Documented by: Calcium Carbonate (Calcium Carbonate 500 Mg Chewable Tab) 500 mg PO BID [facility] Stop: 07/24/21 20:59 Last Admin: 06/27/21 09:42 Dose: 500 mg Documented by: Docusate Sodium (Docusate Sodium 100 Mg Cap) 100 mg PO BID [facility] Stop: 07/24/21 20:59 Last Admin: 06/27/21 09:42 Dose: 100 mg Documented by: Donepezil HCl (Donepezil Hcl 5 Mg Tab) 5 mg PO BID [facility] Stop: 07/24/21 20:59 Last Admin: 06/27/21 09:36 Dose: 5 mg Documented by: Furosemide (Furosemide 20 Mg Tab) 20 mg PO QAM [facility] Stop: 07/27/21 11:59 Last Admin: 06/27/21 13:17 Dose: 20 mg Documented by: Hydroxyzine HCl (Hydroxyzine Hcl 25 Mg Tab) 25 mg PO BID [facility] Stop: 07/24/21 20:59 Last Admin: 06/27/21 09:36 Dose: 25 mg Documented by: Sodium Chloride (Nss) 250 mls @ 15 mls/hr IV .[id number] PRN PRN Reason: For Transfusion Stop: 07/24/21 14:40 Pantoprazole Sodium 40 mg/ (Syringe) 10 mls @ 5 mls/min IV BID [facility] Stop: 07/24/21 20:59 Last Admin: 06/27/21 09:35 Dose: 5 mls/min Documented by: Lorazepam (Lorazepam 0.5 Mg Tab) 0.5 mg PO BID [facility] Stop: 07/24/21 20:59 Last Admin: 06/27/21 09:42 Dose: 0.5 mg Documented by: Losartan Potassium (Losartan Potassium 25 Mg Tab) 25 mg PO BID [facility] Stop: 07/27/21 20:59 Metoprolol Tartrate (Metoprolol Tartrate 25 Mg Tab) 12.5 mg PO BID [facility] Stop: 07/26/21 08:59 Last Admin: 06/27/21 09:35 Dose: 12.5 mg Documented by: Montelukast Sodium (Montelukast Sodium 10 Mg Tablet) 10 mg PO HS [facility] Stop: 07/24/21 20:59 Last Admin: 06/26/21 21:45 Dose: 10 mg Documented by: Ondansetron HCl (Ondansetron Inj 2 Mg/Ml 2 Ml Vial) 4 mg IV Q4H PRN PRN Reason: Nausea And Vomiting Stop: 07/24/21 17:19 Sertraline HCl (S[facility]ine Hcl 50 Mg Tablet) [facility] Stop: 07/25/21 08:59 Last Admin: 06/27/21 09:37 Dose: 50 mg Documented by: Spironolactone (Spironolactone 12.5 Mg Tab) 12.5 mg PO DAILY [facility] Stop: 07/27/21 11:59 Last Admin: 06/27/21 13:17 Dose: 12.5 mg Documented by: Umeclidinium/Vilanterol (Umeclidinium/Vilanterol 62.5/25mcg 7 Puffs/Inhaler) 1 puffs [facility] Stop: 07/25/21 08:59 Last Admin: 06/27/21 09:37 Dose: 1 puffs Documented by: (1) Anemia Anemia type: unspecified type Qualified Code(s): D64.9 - Anemia, unspecified
[2021-06-27] MEDS: MONTELUKAST SODIUM 10 MG TABLET PO SCH (20:41)
--- NOTE | 2021-06-28 06:19 | Electrocardiogram Report ---
Test Reason : Blood Pressure : / mmHG Vent. Rate : 074 BPM Atrial Rate : 074 BPM P-R Int : 148 ms QRS Dur : 092 ms QT Int : 428 ms P-R-T Axes : 080 082 078 degrees QTc Int : 475 ms Normal sinus rhythm Possible Left atrial enlargement Borderline ECG When compared with ECG of 25-JUN-2021 14:38, Sinus rhythm has replaced Atrial fibrillation Vent. rate has decreased BY [address] no longer depressed in Inferior leads Nonspecific T wave abnormality has replaced inverted T waves in Anterior leads Confirmed by Scott Cade ([id number]) on 06/28/2021 6:19:10 AM Referred By: REFERRED SELF Confirmed By:Scott Cade
[2021-06-28 07:20] LABS: BUN Creatinine Ratio 31.9 (10-20); Calcium 8.3 mg/dl (8.5-10.1); Creatinine Clr Calc Pharmacy 48.9 ml/min; Est GFR (African American) 89.5 ml/min; Est GFR (Non-African American) 77.2 ml/min; Potassium 3.7 mmol/L (3.5-5.1)
[2021-06-28 07:48] VITALS: TEMP 97.7
[2021-06-28] MEDS: LOSARTAN POTASSIUM 25 MG TAB PO SCH (08:10)
[2021-06-28] MEDS: PANTOprazole 40 MG in SYRINGE 0 ML IV SCH (08:10)
[2021-06-28] MEDS: UMECLIDINIUM/VILANTEROL 62.5/25MCG 7 PUFFS/INHALER INH SCH (08:10)
[2021-06-28] MEDS: METOPROLOL TARTRATE 25 MG TAB PO SCH (08:10)
[2021-06-28] MEDS: DONEPEZIL HCL 5 MG TAB PO SCH (08:10)
[2021-06-28] MEDS: SERTRALINE HCL 50 MG TABLET PO SCH (08:11)
[2021-06-28] MEDS: hydrOXYzine HCl 25 MG TAB PO SCH (08:11)
[2021-06-28] MEDS: FUROSEMIDE 20 MG TAB PO SCH (08:11)
[2021-06-28] MEDS: AMIODARONE 200 MG TAB PO SCH (08:11)
[2021-06-28] MEDS: ASPIRIN 81 MG ECTAB PO SCH (08:11)
[2021-06-28] MEDS: SPIRONOLACTONE 12.5 MG TAB PO SCH (08:12)
[2021-06-28] MEDS: CALCIUM CARBONATE 500 MG CHEWABLE TAB PO SCH (08:19)
[2021-06-28] MEDS: DOCUSATE SODIUM 100 MG CAP PO SCH (08:19)
[2021-06-28] MEDS: LORazepam 0.5 MG TAB PO SCH (08:19)
--- NOTE | 2021-06-28 10:24 | Cardiology Progress Note ---
Date of Service June 28, 2021 Assessment & Plan (1) Acute heart failure with preserved ejection fraction: (2) Atrial fibrillation, rapid: (3) Anemia: Plan: 89-year-old female presents with progressive multifactorial dyspnea Thus far found to have profound anemia, hemoglobin 6.6, improved to 8.7 status posttransfusion. Monitoring on PPI therapy for now. She was found to have bilateral pleural effusions. A Her catheter was placed, and after receiving IV diuresis, 1.6 L of urine output noted in the last 24 hours. She states her presenting lower extremity edema has improved significantly. She then developed atrial fibrillation with rapid ventricular spots, 4-hour episode 06/25/2021 echocardiogram reveals severe left atrial enlargement, mitral valve disease with severe calcification of the mitral valve apparatus, mild MS, moderate MR. 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 Patient also status post admission April,, with suspected intentional lorazepam overdose. Has had difficulty with grief since the of her several months ago. Cardiology 06/28/2021 Impression/Plan: 89-year-old female who presented with multifactorial dyspnea with signs and symptoms of decompensated congestive heart failure with bilateral pleural effusions with preserved ejection fraction Course complicated by transient atrial fibrillation converting to sinus rhythm with IV amiodarone No further atrial fibrillation will continue oral amiodarone no arrhythmias on telemetry. EKG with out QT prolongation Currently anticoagulation contraindicated We will continue amiodarone 200 mg twice daily x2 weeks then 200 mg/day Continue all other therapies including low-dose diuretic and beta-sourav Will need cardiology follow-up in next 2-weeks stable for discharge today from cardiac standpoint Admission and Anticipated Discharge Date Admission Date: June 24, 2021 Subjective Patient was seen and examined, chart, medications, telemetry reviewed Feeling improved again this morning. No dyspnea no cough. No arrhythmias on telemetry no further atrial fibrillation Review of Systems Review of Systems: All systems reviewed & are unremarkable except as noted in Subjective Physical Exam Physical Exam: Temp Pulse Resp BP Pulse Ox 36.8 C 153 H 16 117/71 97 06/25/21 14:46 06/25/21 15:01 06/25/21 14:46 06/25/21 15:01 06/25/21 15:49 Constitutional: + thin and + frail appearing Eyes: PERRL, conjunctivae normal, anicteric sclerae ENMT: external ear and nose normal, oropharynx normal Neck: trachea midline, no thyromegaly Respiratory: Auscultation: no wheezes Cardiovascular: Rate/Rhythm: regular rate and regular rhythm Heart Sounds: + murmur (1/6 systolic murmur) Extremities: no edema Gastrointestinal (Abdomen): normal bowel sounds, soft, nontender, no hepatosplenomegaly Musculoskeletal: Head/Neck/Chest: normocephalic and head atraumatic Neurologic: PERRL, EOMI, accommodation nl, no face palsy, no dysarthria Results & Data ([facility]) Vital Signs (Past 12 Hours) Vital Signs Temp Pulse Pulse Resp BP BP Pulse Ox 06/28/21 07:47 36.5 C 75 15 151/72 H 96 06/28/21 07:10 75 06/28/21 03:51 36.7 C 77 18 142/78 H 97 06/28/21 00:00 69 06/27/21 23:54 36.4 C L 72 18 157/65 H 96 ECG Additional Comments: 28-JUN-2021 06:28:06 Normal sinus rhythm Possible Left atrial enlargement Borderline ECG When compared with ECG of 26-JUN-2021 06:24, No significant change was found QTC corrected 481 (1) Anemia Anemia type: unspecified type Qualified Code(s): D64.9 - Anemia, unspecified
[2021-06-28 11:57] VITALS: BP 123/71; O2SAT 97
--- NOTE | 2021-06-28 13:16 | Hospitalist Progress Note ---
Date of Service June 28, 2021 Assessment & Plan (1) Atrial fibrillation, rapid: (2) Acute heart failure with preserved ejection fraction: (3) Pleural effusion: (4) Abnormal CT scan of lung: (5) Anemia: (6) Breast cancer, left: (7) Hypertension: Plan: (1) Shortness of breath: Plan: Acute diastolic heart failure Developed A. fib with RVR this evening of 06/25/2021 Clinically much better A. fib with RVR-reverted to sinus rhythm Remains asymptomatic - Echo : Mild concentric LVH, LV wall motion is normal, LV systolic function is normal with EF 65 to 70%, LA severely dilated, severe mitral annular calcification, moderate mitral regurgitation, mild mitral stenosis, mild tricuspid regurgitation, severe pulmonary hypertension is present and small right pleural effusion - Initial trop negative, will add on BNP Electrolytes replace We will give 1 dose of intravenous Lopressor and may need to continue Heparin is not administered due to recent GI bleed Appreciate cardiology input and recommendation Received intravenous amiodarone and reverted to sinus rhythm Has been on oral amiodarone and small dose of oral beta-sourav Remains medically stable without any cardiac symptoms Remains in sinus rhythm with amiodarone and will continue medications as per cardiology recommendation (2) Pulmonary mass: Plan: - Admit to tele - Recent CT chest w contrast completed as outpatient on 06/21/21 Right upper lobe 39 x 24 mm opacity, nonspecific. Neoplasm, pneumonia, and/or atelectasis could have this appearance. Further evaluation is suggested. Moderate to large bilateral pleural effusions with compressive atelectasis posteriorly. Left mastectomy. Mild indeterminate age T1 superior vertebral endplate compression, new since 2019 - Pulmonology consultation for possible bronch with biopsy of mass? pleural effusion bilaterally - Appears on Epic record review that there have been multiple RUL nodules including this 29 mm one which has been presents since 2019, there is documentation regarding non-solid vs part-solid, vs ground glass, solid and cystic components surrounding the same lesion. - Lasix 40 mg IV ordered with first dose prior 1 U PRBCs transfusion, will continue with BID dosing for edema and 11 lb weight gain per pt report - Pt reports fever this morning of 99, currently afebrile, no leukocytosis, will obtain blood cultures -Pending -Will need continued surveillance as an outpatient for the pulmonary mass Bilateral pleural effusion -Could be secondary to cardiac causes and to rule out malignancy -Appreciate pulmonary input and recommendation-has had 800 mL of pleural fluid removed today -Awaiting results of the tests-seems to be transudative -Cytology did not show any malignant cells -AFB culture is pending but gram stain is negative (3) Breast cancer, left: Plan: Originally diagnosed in 1972, status post left-sided radical mastectomy -Received XRT (4) Radiation pneumonitis: Plan: - 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 twice daily DVT ppx: - teds, scds, no chemical anticoagulation in the setting of possible GI bleed, pulmonary to see regarding possible procedure CODE: DNR/DNI Dispo: From home, likely to remain in the hospital x 1-2 days Likely discharge this afternoon Admission and Anticipated Discharge Date Admission Date: June 24, 2021 Admission and Anticipated Discharge Date Admission Date: June 24, 2021 Subjective 06/25/2021 Patient was seen and examined in medical telemetry unit She has been feeling much better following blood transfusion and thoracentesis Denies any significant chest pain and/or palpitation and no shortness of breath at rest Unfortunately she went into A. fib with RVR without any symptoms this afternoon 06/26/2021 The patient was seen and examined in telemetry unit She reverted to sinus rhythm and denies any significant palpitation and no shortness of breath She remains very anxious though 06/27/2021 The patient was seen and examined in telemetry unit She has been in sinus rhythm without any cardiac symptoms Sitting on a chair outside bed without any symptoms 06/28/2021 The patient was seen and examined in telemetry unit She is out of bed on a chair without any acute symptoms She has been in sinus rhythm for the last 2 days or so and denies any cardiac symptoms She will be discharged today Review of Systems Review of Systems: All systems reviewed and are unremarkable except as noted below Physical Exam Physical Exam: Lying in bed comfortably Constitutional: + ill appearing and average body habitus Eyes: PERRL, conjunctivae normal, anicteric sclerae ENMT: external ear and nose normal, oropharynx normal Neck: trachea midline, no thyromegaly Respiratory: no respiratory distress Auscultation: + diminished lung sounds (At the bases) and + crackles (Bibasilar crackles) Cardiovascular: Rate/Rhythm: regular rate and regular rhythm Heart Sounds: normal S1, normal S2 and + murmur (2/6 ESM over the precordium) Extremities: + edema (Trace edema bilaterally) Gastrointestinal (Abdomen): Inspection/Auscultation: normal bowel sounds; abdomen not distended Percussion/Palpation: abdomen soft; abdomen nontender Musculoskeletal: No acute arthritis in any joint Neurologic: Alert, awake and oriented x3. No focal sensory or no motor deficit appreciated Psychiatric: A+Ox3, euthymic affect Lymphatic: no cervical or axillary lymphadenopathy Results & Data Results & Data ([facility]) Vital Signs (Past 12 Hours) Vital Signs Temp Pulse Pulse Resp BP BP Pulse Ox 06/28/21 11:56 36.5 C 68 16 123/71 97 06/28/21 07:47 36.5 C 75 15 151/72 H 96 06/28/21 07:10 75 06/28/21 03:51 36.7 C 77 18 142/78 H 97 Laboratory Results Short CBC 06/24/21 06/28/21 Range/Units 12:42 12:35 SARS-CoV-2, RNA, NAAT NEGATIVE NEGATIVE (NEGATIVE) BMP 06/28/21 06:34 Sodium 135 L Potassium 3.7 Chloride 101 Carbon Dioxide 28 BUN 22 Creatinine 0.69 Glucose 83 Calcium 8.3 L Medications Administered Current Inpatient Medications Acetaminophen (Acetaminophen 325 Mg Tab) 650 mg PO Q4H PRN PRN Reason: Pain Stop: 07/24/21 17:19 Amiodarone HCl (Amiodarone 200 Mg Tab) 200 mg PO BID [facility] Stop: 07/28/21 20:59 Aspirin (Aspirin 81 Mg Ectab) 81 mg PO QAM [facility] Stop: 07/25/21 08:59 Last Admin: 06/28/21 08:11 Dose: 81 mg Documented by: Calcium Carbonate (Calcium Carbonate 500 Mg Chewable Tab) 500 mg PO BID [facility] Stop: 07/24/21 20:59 Last Admin: 06/28/21 08:19 Dose: 500 mg Documented by: Docusate Sodium (Docusate Sodium 100 Mg Cap) 100 mg PO BID [facility] Stop: 07/24/21 20:59 Last Admin: 06/28/21 08:19 Dose: 100 mg Documented by: Donepezil HCl (Donepezil Hcl 5 Mg Tab) 5 mg PO BID [facility] Stop: 07/24/21 20:59 Last Admin: 06/28/21 08:10 Dose: 5 mg Documented by: Furosemide (Furosemide 20 Mg Tab) 20 mg PO QAM [facility] Stop: 07/27/21 11:59 Last Admin: 06/28/21 08:11 Dose: 20 mg Documented by: Hydroxyzine HCl (Hydroxyzine Hcl 25 Mg Tab) 25 mg PO BID [facility] Stop: 07/24/21 20:59 Last Admin: 06/28/21 08:11 Dose: 25 mg Documented by: Sodium Chloride (Nss) 250 mls @ 15 mls/hr IV .[id number] PRN PRN Reason: For Transfusion Stop: 07/24/21 14:40 Lorazepam (Lorazepam 0.5 Mg Tab) 0.5 mg PO BID [facility] Stop: 07/24/21 20:59 Last Admin: 06/28/21 08:19 Dose: 0.5 mg Documented by: Losartan Potassium (Losartan Potassium 25 Mg Tab) 25 mg PO BID [facility] Stop: 07/27/21 20:59 Last Admin: 06/28/21 08:10 Dose: 25 mg Documented by: Metoprolol Tartrate (Metoprolol Tartrate 25 Mg Tab) 12.5 mg PO BID [facility] Stop: 07/26/21 08:59 Last Admin: 06/28/21 08:10 Dose: 12.5 mg Documented by: Montelukast Sodium (Montelukast Sodium 10 Mg Tablet) 10 mg PO HS [facility] Stop: 07/24/21 20:59 Last Admin: 06/27/21 20:41 Dose: 10 mg Documented by: Ondansetron HCl (Ondansetron Inj 2 Mg/Ml 2 Ml Vial) 4 mg IV Q4H PRN PRN Reason: Nausea And Vomiting Stop: 07/24/21 17:19 Pantoprazole Sodium (Pantoprazole 40 Mg Tab) 40 mg PO BID [facility] Stop: 07/28/21 20:59 Sertraline HCl (Sertraline Hcl 50 Mg Tablet) [facility] [place] Stop: 07/25/21 08:59 Last Admin: 06/28/21 08:11 Dose: 50 mg Documented by: Spironolactone (Spironolactone 12.5 Mg Tab) 12.5 mg PO DAILY [facility] Stop: 07/27/21 11:59 Last Admin: 06/28/21 08:12 Dose: 12.5 mg Documented by: Umeclidinium/Vilanterol (Umeclidinium/Vilanterol 62.5/25mcg 7 Puffs/Inhaler) 1 puffs [facility] Stop: 07/25/21 08:59 Last Admin: 06/28/21 08:10 Dose: 1 puffs Documented by: (1) Anemia Anemia type: unspecified type Qualified Code(s): D64.9 - Anemia, unspecified
[2021-06-28 13:35] VITALS: PULSE 83
[2021-06-28] MEDS ORDERED: AMIODARONE 200 MG TAB PO SCH (21:00)
[2021-06-28] MEDS ORDERED: PANTOprazole 40 MG TAB PO SCH (21:00)
--- NOTE | 2021-06-29 07:23 | Discharge Summary ---
Date of Service June 29, 2021 Admission HPI Per Admitting Provider This is an 89 yo F with PMhx of remote history of breast cancer in 1973 status post radical mastectomy of the left breast, HTN, HLD, asthma-COPD overlap syndrome, history of PE following right knee arthroplasty in 2004, anxiety, and MDD following the recent of her earlier this year. Today the patient presents with worsening shortness of breath. She underwent CT chest imaging with contrast earlier this week on 06/21 for routine appointment to watch lymph nodes which had previously been enlarged due to getting radiation treatments 3-4 years ago for recurrent. They then received a call later that evening that if she was to develop shortness of breath that she should present to the ER however results were not given to them. Pt reports having increased worsening shortness of breath for the past 2 days along with lower extremity swelling. She is able to take 3-4 steps and then becomes extremely winded where she needs to take deep breaths however feels it is difficult, admits to chest tightness and some wheezing but denies chest pain. Also reports a dry cough. This morning she awoke at 2am and was awake until 7am because of anxiety, and has having anxiety attacks since her recently . She is unable to tell me if she awoke because of feeling short of breath or if it was a combination of this plus her anxiety. Patient has been using her Stiolto inhaler as directed. Approximately 2 weeks ago she had 1 week of loose dark tarry stools intermittently, no bright red blood, no abdominal pain, no changes in oral intake or dietary habits. She did not think much of this, and denies any other obvious signs of bleeding. She denies any lightheadedness or dizziness. Today her hemoglobin is depressed at 6.6. She feels that she does look pale when looking in the mirror. She denied denies any night sweats or weight loss. Admits to weight gain of 11 pounds within the past 2 weeks, and actually asked her [id number] to get her another pair of shoes 1 size up be cause of how swollen her feet were. Her oral intake has increased since being a resident of [facility] where there are 3 meals a day served, vs when she was at home by herself. CT of the chest with contrast shows large moderate bilateral pleural effusions, a RUL opacity measuring 39x24 mm, nonspecific. The patient had not yet spoken or seen a provider regarding her recent CT results. I reviewed images with the patient and her son present at bedside, and have consulted pulmonology to further review with them. Recent hospitalization in April 2021 for possible intentional lorazepam ove rdose. Her of 62 years recently. She spent time at a geriatric psychiatric facility in [place] and then went directly to personal care at [facility]. She recently began seeing provider at [facility] in late May and is currently taking Zoloft 50 mg, donepezil 5 mg twice daily, hydroxyzine 25 mg twice daily, Ativan 0.5 mg twice daily basis. Admission Exam Per Admitting Provider Physical Exam: General: awake, alert, no apparent distress, + pallor Head: Normocephalic, atraumatic ENT: PERRL, EOMI, no pharyngeal exudate, mucous membranes moist Chest: + On room air, audible wheeze, absent breath sounds at bases bilaterally, + crackles in mid croft bilaterally Cardiac: Sinus tach, + systolic ejection murmur, mild JVD, normal peripheral pulses, good capillary refill Abdominal: NABS x 4 quadrants, soft, nondistended, nontender to palpation, no rebound or guarding Extremities: 2+ pitting peripheral edema bilaterally up to knees, no erythema, calfs nontender to palpation Psych: Normal mood and affect Neuro: AAO x 3, strength intact bilaterally and rated 5/5, no motor deficits, speech is clear, no peripheral sensory deficits Principal Diagnosis A. fib with RVR-reverted to sinus rhythm, acute heart failure with preserved EF, transudative pleural effusion, hypertension, chronic anemia, history of breast cancer and abnormal CT scan of the lung Discharge Exam Lying in bed comfortably Constitutional + ill appearing and average body habitus Eyes PERRL, conjunctivae normal, anicteric sclerae ENMT external ear and nose normal, oropharynx normal Neck trachea midline, no thyromegaly Respiratory no respiratory distress Auscultation: + diminished lung sounds (At the bases) and + crackles (Bibasilar crackles) Cardiovascular Rate/Rhythm: regular rate and regular rhythm Heart Sounds: normal S1, normal S2 and + murmur (2/6 ESM over the precordium) Extremities: + edema (Trace edema bilaterally) Gastrointestinal (Abdomen) Inspection/Auscultation: normal bowel sounds; abdomen not distended Percussion/Palpation: abdomen soft; abdomen nontender Psychiatric A+Ox3, euthymic affect Lymphatic no cervical or axillary lymphadenopathy Discharge Data Allergies Allergy/AdvReac Type Severity Reaction Status Date / Time bee venom protein (honey bee) Allergy Severe ANAPHYLAXIS Verified 06/24/21 12:19 Consultations 06/24/21 13:12 ED Decision to Admit Stat 06/24/21 14:41 Consult Pulmonology Routine 06/24/21 14:57 Consult Gastroenterology Routine 06/25/21 16:21 Consult Cardiology Routine Hospital Course (1) Atrial fibrillation, rapid: (2) Acute heart failure with preserved ejection fraction: (3) Pleural effusion: (4) Abnormal CT scan of lung: (5) Anemia: (6) Breast cancer, left: (7) Hypertension: (1) Shortness of breath: Plan: Acute diastolic heart failure Developed A. fib with RVR this evening of 06/25/2021 Clinically much better A. fib with RVR-reverted to sinus rhythm Remains asymptomatic - Echo : Mild concentric LVH, LV wall motion is normal, LV systolic function is normal with EF 65 to 70%, LA severely dilated, severe mitral annular calcification, moderate mitral regurgitation, mild mitral stenosis, mild tricuspid regurgitation, severe pulmonary hypertension is present and small right pleural effusion - Initial trop negative, will add on BNP Electrolytes replace We will give 1 dose of intravenous Lopressor and may need to continue Heparin is not administered due to recent GI bleed Appreciate cardiology input and recommendation Received intravenous amiodarone and reverted to sinus rhythm Has been on oral amiodarone and small dose of oral beta-sourav Remains medically stable without any cardiac symptoms Remains in sinus rhythm with amiodarone and will continue medications as per cardiology recommendation (2) Pulmonary mass: Plan: - Admit to tele - Recent CT chest w contrast completed as outpatient on 06/21/21 Right upper lobe 39 x 24 mm opacity, nonspecific. Neoplasm, pneumonia, and/or atelectasis could have this appearance. Further evaluation is suggested. Moderate to large bilateral pleural effusions with compressive atelectasis posteriorly. Left mastectomy. Mild indeterminate age T1 superior vertebral endplate compression, new since 2019 - Pulmonology consultation for possible bronch with biopsy of mass? pleural effusion bilaterally - Appears on Epic record review that there have been multiple RUL nodules including this 29 mm one which has been presents since 2019, there is documentation regarding non-solid vs part-solid, vs ground glass, solid and cystic components surrounding the same lesion. - Lasix 40 mg IV ordered with first dose prior 1 U PRBCs transfusion, will continue with BID dosing for edema and 11 lb weight gain per pt report - Pt reports fever this morning of 99, currently afebrile, no leukocytosis, will obtain blood cultures -Pending -Will need continued surveillance as an outpatient for the pulmonary mass Bilateral pleural effusion -Could be secondary to cardiac causes and to rule out malignancy -Appreciate pulmonary input and recommendation-has had 800 mL of pleural fluid removed today -Awaiting results of the tests-seems to be transudative -Cytology did not show any malignant cells -AFB culture is pending but gram stain is negative (3) Breast cancer, left: Plan: Originally diagnosed in 1972, status post left-sided radical mastectomy -Received XRT (4) Radiation pneumonitis: Plan: - 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 twice daily DVT ppx: - teds, scds, no chemical anticoagulation in the setting of possible GI bleed, pulmonary to see regarding possible procedure CODE: DNR/DNI Dispo: From home, likely to remain in the hospital x 1-2 days Likely discharge this afternoon Admission and Anticipated Discharge Date Admission Date: June 24, 2021 Total Time Total Time Spent Total Time Spent (In Minutes): 35 minutes Discharge Plan Discharge Items Patient Disposition: Personal [facility] Reason For Visit: PLEURAL EFFUSION, OPACITY, SHORTNESS OF BREATH Discharge Diagnosis: A. fib with RVR-reverted to sinus rhythm, acute heart failure with preserved EF, transudative pleural effusion, hypertension, chronic anemia, history of breast cancer and abnormal CT scan of the lung Condition on Discharge: Fair Activity: Resume your previous activity Non-emergency contact: Primary Care Provider Call non-emergency contact if: you have any medication questions and your symptoms worsen Follow-up/Referrals: Bear Rodriguez MD [Primary Care Provider] - 07/05/21 11:20 am (Date & Time 07/05/2021 11:20 AM Provider Bear Rodriguez MD Department [facility] ) Terry Manzo MD [Physician] - 06/30/21 11:40 am (Date & Time 06/30/2021 11:40 AM Provider Terry Manzo MD Department Gastroenterology, [facility] ) Yanelis Rojas CRNP [Nurse Practitioner] - (Date & Time 07/12/2021 11:30 AM Provider TEVIN Arreaga Department Cardiology, [facility] ) Diet: Heart Healthy Addtl Attending Provider Instructions: Please take precautions to avoid falls Take your medications as advised Keep appointments with your healthcare providers Pending Studies at Discharge: No Stand-Alone Forms: Million-2-1, Smoking Cessation Skilled Items Patient informed of condition?: Yes DNR: Yes Discharge Level of Care: Other Communicable Disease: No Discharge Prognosis: Stable Lines: None Urinary Catheter: No Medications and DC Order Prescriptions: New amiodarone 200 mg Tablet 200 mg PO UD 30 Days Qty: 45 RF: 0 spironolactone 25 mg Tablet 12.5 mg PO DAILY 30 Days Qty: 15 RF: 0 pantoprazole 40 mg Tablet,Delayed Release (Dr/Ec) 40 mg PO BID 30 Days Qty: 60 RF: 0 furosemide 20 mg Tablet 20 mg PO QAM 30 Days Qty: 30 RF: 0 metoprolol tartrate 25 mg Tablet 12.5 mg PO BID 30 Days Qty: 30 RF: 0 Continued losartan 25 mg Tablet 25 mg PO QAM RF: 0 aspirin 81 mg Tablet,Delayed Release (Dr/Ec) 81 mg PO QAM RF: 0 Stiolto Respimat 2.5-2.5 mcg/actuation Mist 2 puff INHALATION QAM RF: 0 montelukast 10 mg tablet 10 mg PO HS RF: 0 acetaminophen [Tylenol] 325 mg Tablet 650 mg PO Q4H PRN (Reason: Pain) RF: 0 donepezil 5 mg Tablet 5 mg PO BID RF: 0 lorazepam 0.5 mg Tablet 0.5 mg PO BID RF: 0 docusate sodium [Colace] 100 mg Capsule 100 mg PO BID RF: 0 hydroxyzine HCl 25 mg Tablet 25 mg PO BID RF: 0 calcium carbonate 500 mg calcium (1,250 mg) Tablet,Chewable 500 mg PO BID RF: 0 sertraline 50 mg Tablet 50 mg PO QAM RF: 0 Discharge Orders: Discharge Order (Routine); Ordered 06/28/21 Ordered By: Isaura Pretty Admission Data Admit Date/Time: 06/24/21 13:45 Attending Provider: Isaura Pretty Admit Provider: Renzo Meneses Primary Care Provider: Bear Rodriguez Other Providers: Renzo Meneses ; Mike Blanco ; Amilcar Oliver ; Ginette Bahena Other Interventions: Discharge Summary Assessment (RN) Last Done: 06/28/21 13:33
--- NOTE | 2021-06-30 13:46 | Electrocardiogram Report ---
Test Reason : Blood Pressure : / mmHG Vent. Rate : 079 BPM Atrial Rate : 079 BPM P-R Int : 158 ms QRS Dur : 096 ms QT Int : 420 ms P-R-T Axes : 077 074 068 degrees QTc Int : 481 ms Normal sinus rhythm Possible Left atrial enlargement Borderline ECG When compared with ECG of 26-JUN-2021 06:24, No significant change was found Confirmed by Scott Cade ([id number]) on 06/30/2021 1:46:13 PM Referred By: REFERRED SELF Confirmed By:Scott Cade
== END 2021-06-28 14:50 | disposition home or self-care (01) | DRG 291 ==
LOC: ED 11:09 → SUATTDRO 13:45 → 2N 13:45 → 2S 06-25 18:30

== ENCOUNTER 2021-07-06 13:51 | Inpatient (IN) ==
--- NOTE | 2021-07-06 14:09 | Emergency Department Note ---
Impression & Plan SOB (shortness of breath), Anemia, Exertional dyspnea, Fluid overload ED Provider Note NAME: NALLELY NOBLE AGE: 89 SEX: F : 1930 ARRIVES VIA: Walk-In INFORMANT: [Patient][family] ED PROVIDER(S): [bA Marion MD] CHIEF COMPLAINT: Short of breath HISTORY OF PRESENT ILLNESS: The patient is an 89-year-old female who has had 2 days of increasing dyspnea. She also has noticed some bilateral leg swelling. The patient states that she is mostly short of breath with activity and walking. She can barely take a few steps without having to stop and catch her breath. She does not typically wear oxygen. The patient was discharged from the hospital around 8 days ago. She had been admitted for rapid A. fib and heart failure. She is currently on a diuretic. There has been some increased cough. No fever. No chest pain. She is taking her medications as prescribed REVIEW OF SYSTEMS: See HPI for pertinent positives and negatives. A total of ten systems were reviewed and were otherwise negative. PMHx/PSHx: See Below SOCIAL HISTORY: See Below. PHYSICAL EXAM: GENERAL: Patient is in mild respiratory distress HEENT: No acute trauma, normocephalic atraumatic, mucous membranes moist, no nasal congestion, no scleral icterus. NECK: No stridor, no adenopathy, no meningismus, trachea is midline. LUNGS: Crackles at the bases bilaterally and I believe also in the right upper lobe. There is an increased respiratory rate and some mild respiratory distress. No wheezing. Breath sounds are diminished bilaterally. HEART: Without murmurs gallops or rubs, regular rate and rhythm. Heart tones are quite distant. ABDOMEN: Soft, nontender, bowel sounds positive, no hernias, no peritonitis. EXTREMITIES: No cyanosis, mild bilateral pedal edema, full range of motion of all the joints without pain or difficulty, no signs for acute trauma. NEUROLOGIC: Oriented x 3, no acute motor or sensory deficits, no focal weakness. SKIN: No rash, no jaundice, no diaphoresis. Rectal: Brown stool, heme-negative. DIFFERENTIAL DIAGNOSIS: Reactive airway disease, COVID-19, influenza, pneumonia, pneumothorax, COPD, CHF, infection, cardiac ischemia, pulmonary embolism, bronchitis, musculoskeletal, gastrointestinal, as well as other pathologies. EMERGENCY DEPARTMENT COURSE/PROCEDURES: ECG: Indication was shortness of breath. The ECG shows a normal sinus rhythm with a rate of 62. There is some baseline artifact. There is no ST elevation, no PVCs. The QTc is 472. Continuous Cardiac Monitoring: An order was placed for continuous cardiac monitoring. The monitor shows a rate of 61 with normal sinus rhythm. MEDICAL DECISION MAKING: There is no leukocytosis. The patient is anemic with a hemoglobin of 8.2--rectal exam was heme-negative. Platelet count is normal. No coagulopathy. Potassium somewhat low at 3.3. No renal failure. No worrisome liver enzyme elevation. ECG shows a normal sinus rhythm, no obvious ischemia. Cardiac enzyme testing x1 is not consistent with acute cardiac injury. Chest film shows some cardiomegaly and a left lung effusion. No pneumonia. BNP was elevated at over 800 consistent with fluid overload/CHF. COVID and influenza and RSV tests were negative. The patient was visibly short of breath during my evaluation. She appears to be fluid overloaded. The patient was given IV Lasix, she was given oral potassium. She was given a DuoNeb. The patient's shortness of breath is likely multifactorial. I do think the fluid overload and anemia are both contributing. She is in no condition to be discharged home. I did speak with the patient and manager of case. The on-call hospitalist was consulted. Past Med/Surg History Medical History Abnormal CT of the chest Anxiety Asthma USING RESCUE INHALER FREQUENTLY/DAILY Asthma-COPD overlap syndrome Cancer BREAST CANCER-LEFT MASTECTOMY Chronic obstructive pulmonary disease Deep vein thrombosis 15 YEARS AGO S/P LEG SURGERY Dysphagia HX ESOPHAGEAL STRETCHING GERD (gastroesophageal reflux disease) History of pulmonary embolism Hypertension Osteoarthritis Prolapsed bladder Pulmonary nodule, right Rectal bleeding Surgical History History of cataract surgery RT/LEFT History of colonoscopy History of esophagogastroduodenoscopy (EGD) History of mastectomy LEFT (NO BP/LAB DRAWS) History of tonsillectomy History of tooth extraction History of total hysterectomy with bilateral salpingo-oophorectomy (BSO) History of total knee replacement LEFT/RT Family History (Updated 07/06/21 @ 16:42 by Esperanza Huber PA-C) Other Family history non-contributory Social History Smoking Status: Never smoker Second Hand Exposure: No; Do You Dip or Chew Tobacco: No; Hx Alcohol Use: No Hx Substance Use: No Preferred Language: Irish Communication Ability: Effective Cardiac Monitor Technician Required: No Beliefs That Will Affect Care: Sikh marital status: / Current Living Situation: Personal Care Facility Other Information That Helps Us Care for You: No Feels Safe at Home: Yes Safety Concerns: Feels Safe At This Time Childhood Exposure to Second-Hand Smoke: Yes Dental Care, Regularly: Yes Assistive Devices: Glasses, Hearing Aid - Bilateral, Hearing Aid - Left and Walker Allergies Allergies Allergy/AdvReac Type Severity Reaction Status Date / Time bee venom protein (honey bee) Allergy Severe ANAPHYLAXIS Verified 07/06/21 15:03 Home Meds Home Medications Medication Instructions Recorded Confirmed losartan 25 mg tablet 25 mg PO QAM 03/07/18 07/06/21 aspirin 81 mg tablet,delayed 81 mg PO QAM 04/30/21 07/06/21 release montelukast 10 mg tablet 10 mg PO HS 04/30/21 07/06/21 tiotropium 2.5 mcg-olodaterol 2.5 2 puff INHALATION QAM 04/30/21 07/06/21 mcg/actuation mist for inhalation (Stiolto Respimat) acetaminophen 325 mg tablet 650 mg PO Q4H PRN 06/24/21 07/06/21 (Tylenol) calcium carbonate 500 mg calcium 500 mg PO BID 06/24/21 07/06/21 (1,250 mg) chewable tablet docusate sodium 100 mg capsule 100 mg PO BID 06/24/21 07/06/21 (Colace) donepezil 5 mg tablet 5 mg PO BID 06/24/21 07/06/21 hydroxyzine HCl 25 mg tablet 25 mg PO BID 06/24/21 07/06/21 lorazepam 0.5 mg tablet 0.5 mg PO BID 06/24/21 07/06/21 sertraline 100 mg tablet 100 mg PO QAM 07/06/21 07/06/21 Previous Rx's Medication Instructions Recorded amiodarone 200 mg tablet 200 mg PO UD 30 Days #45 tab 06/28/21 furosemide 20 mg tablet 20 mg PO QAM 30 Days #30 tab 06/28/21 metoprolol tartrate 25 mg tablet 12.5 mg PO BID 30 Days #30 tab 06/28/21 pantoprazole 40 mg tablet,delayed 40 mg PO BID 30 Days #60 tab 06/28/21 release spironolactone 25 mg tablet 12.5 mg PO DAILY 30 Days #15 tab 06/28/21 Results & Data (ED) Vital Signs Vital Signs - 24 hr 07/06/21 13:53 07/06/21 14:04 07/06/21 14:33 Temperature 36.2 C L Temperature Source Temporal Artery Scan Pulse Rate 62 Pulse Rate [Right Finger] 60 Pulse Rhythm Regular Pulse Rhythm [Right Finger] Regular Pulse Strength Normal Pulse Strength [Right Finger] Normal Respiratory Rate 22 18 Respiratory Effort / Characteristics Non-Labored Spontaneous Non-Labored Spontaneous Respiratory Depth Normal Normal Respiratory Pattern Regular Regular Blood Pressure 148/66 H Blood Pressure [Right Arm] 148/63 H Blood Pressure Mean 93 Blood Pressure Mean [Right Arm] 91 Blood Pressure Position Sitting Blood Pressure Position [Right Arm] Lying Pulse Oximetry 98 97 Oxygen Delivery Method Room Air Room Air Room Air Sepsis Recent Fever Within 48 Hours No Sepsis New/Unexplained Change in Mental Status N/A Sepsis Action Taken by Nursing No Action Required 07/06/21 14:37 07/06/21 14:39 07/06/21 15:51 Temperature Temperature Source Pulse Rate 59 L Pulse Rate [Right Finger] 64 Pulse Rhythm Regular Pulse Rhythm [Right Finger] Pulse Strength Pulse Strength [Right Finger] Respiratory Rate 18 16 Respiratory Effort / Characteristics Respiratory Depth Respiratory Pattern Blood Pressure Blood Pressure [Right Arm] 160/84 H Blood Pressure Mean Blood Pressure Mean [Right Arm] 109 Blood Pressure Position Blood Pressure Position [Right Arm] Pulse Oximetry 97 95 Oxygen Delivery Method Room Air Room Air Room Air Sepsis Recent Fever Within 48 Hours Sepsis New/Unexplained Change in Mental Status Sepsis Action Taken by Nursing 07/06/21 17:42 Temperature Temperature Source Pulse Rate 64 Pulse Rate [Right Finger] Pulse Rhythm Pulse Rhythm [Right Finger] Pulse Strength Pulse Strength [Right Finger] Respiratory Rate 16 Respiratory Effort / Characteristics Respiratory Depth Respiratory Pattern Blood Pressure 154/80 H Blood Pressure [Right Arm] Blood Pressure Mean Blood Pressure Mean [Right Arm] Blood Pressure Position Blood Pressure Position [Right Arm] Pulse Oximetry 97 Oxygen Delivery Method Room Air Sepsis Recent Fever Within 48 Hours Sepsis New/Unexplained Change in Mental Status Sepsis Action Taken by Assisted Medications Current Medication List: was personally reviewed by me Laboratory Data Attestation: I reviewed the patient's lab results. Result diagrams: 07/06/21 14:20 07/06/21 14:20 Lab Results 07/06/21 07/06/21 07/06/21 Range/Units 14:20 14:20 14:20 WBC 7.35 (4.8-10.8) K/uL RBC 3.46 L (4.2-5.4) M/uL Hgb 8.2 L (12.0-16.0) g/dL Hct 27.5 L (37-47) % MCV 79.5 L (80-100) fL MCH 23.7 L (25-34) pg MCHC 29.8 L (32-36) g/dL RDW Std Deviation 56.6 H (36.4-46.3) fL RDW Coeff of [place] 19.1 H (11.5-14.5) % Plt Count 372 (130-400) K/uL MPV 10.1 (7.4-10.4) fL Immature Gran % (Auto) 0.3 % Neut % (Auto) 78.6 % Lymph % (Auto) 10.1 % [place] % (Auto) 9.7 % Eos % (Auto) 0.8 % Baso % (Auto) 0.5 % Neut # (Auto) 5.78 (1.4-6.5) K/uL Lymph # (Auto) 0.74 L (1.2-3.4) K/uL [place] # (Auto) 0.71 H (0.11-0.59) K/uL Eos # (Auto) 0.06 (0-0.5) K/uL Baso # (Auto) 0.04 (0-0.2) K/uL Immature Gran # (Auto) 0.02 (0.00-0.02) K/uL PT (9.0-12.0) Seconds INR (0.9-1.1) APTT (21.0-31.0) Seconds PTT Ratio Sodium (136-145) mmol/L Potassium (3.5-5.1) mmol/L Chloride (98-107) mmol/L Carbon Dioxide (21-32) mmol/L Anion Gap (3-11) BUN (6-23) mg/dl Creatinine (0.6-1.2) mg/dl Est Cr Clr Drug Dosing Est GFR ( Amer) ml/min Est GFR (Non-Af Amer) ml/min BUN/Creatinine Ratio (10-20) Glucose (70-99(Fasting)) mg/dl Calcium (8.5-10.1) mg/dl Magnesium (1.7-2.4) mg/dl Total Bilirubin (0.2-1.0) mg/dl AST (13-39) U/L ALT (7-52) U/L Alkaline Phosphatase (34-104) U/L Troponin I High Sens 13.7 (0-14) pg/ml B-Natriuretic Peptide 829 H (0-100) pg/ml Total Protein (6.0-8.3) gm/dl Albumin (3.4-5.0) gm/dl Globulin (2.5-4.0) gm/dl Albumin/Globulin Ratio (0.9-2) SARS-CoV-2 (PCR) (Negative) Influenza Type A (PCR) (Neg) Influenza Type B (PCR) (Neg) RSV (RT-PCR) (Neg) 07/06/21 07/06/21 07/06/21 Range/Units 14:20 14:20 14:20 WBC (4.8-10.8) K/uL RBC (4.2-5.4) M/uL Hgb (12.0-16.0) g/dL Hct (37-47) % MCV (80-100) fL MCH (25-34) pg MCHC (32-36) g/dL RDW Std Deviation (36.4-46.3) fL RDW Coeff of [place] (11.5-14.5) % Plt Count (130-400) K/uL MPV (7.4-10.4) fL Immature Gran % (Auto) % Neut % (Auto) % Lymph % (Auto) % [place] % (Auto) % Eos % (Auto) % Baso % (Auto) % Neut # (Auto) (1.4-6.5) K/uL Lymph # (Auto) (1.2-3.4) K/uL [place] # (Auto) (0.11-0.59) K/uL Eos # (Auto) (0-0.5) K/uL Baso # (Auto) (0-0.2) K/uL Immature Gran # (Auto) (0.00-0.02) K/uL PT 11.6 (9.0-12.0) Seconds INR 1.1 (0.9-1.1) APTT 22.8 (21.0-31.0) Seconds PTT Ratio 0.8 Sodium 139 (136-145) mmol/L Potassium 3.3 L (3.5-5.1) mmol/L Chloride 100 (98-107) mmol/L Carbon Dioxide 29 (21-32) mmol/L Anion Gap 10 (3-11) BUN 30 H (6-23) mg/dl Creatinine 0.91 (0.6-1.2) mg/dl Est Cr Clr Drug Dosing Not Reportable Est GFR ( Amer) 64.8 ml/min Est GFR (Non-Af Amer) 55.9 ml/min BUN/Creatinine Ratio 33.0 H (10-20) Glucose 108 H (70-99(Fasting)) mg/dl Calcium 8.7 (8.5-10.1) mg/dl Magnesium 1.8 (1.7-2.4) mg/dl Total Bilirubin 0.5 (0.2-1.0) mg/dl AST 17 (13-39) U/L ALT 15 (7-52) U/L Alkaline Phosphatase 50 (34-104) U/L Troponin I High Sens (0-14) pg/ml B-Natriuretic Peptide (0-100) pg/ml Total Protein 6.5 (6.0-8.3) gm/dl Albumin 4.0 (3.4-5.0) gm/dl Globulin 2.5 (2.5-4.0) gm/dl Albumin/Globulin Ratio 1.6 (0.9-2) SARS-CoV-2 (PCR) NEGATIVE (Negative) Influenza Type A (PCR) Negative (Neg) Influenza Type B (PCR) Negative (Neg) RSV (RT-PCR) Negative (Neg) Administered Medications Discontinued Medications Albuterol (Albut/Ipratrop 3mg/0.5mg Neb 3 Ml Vial) 3 ml NEB NOW STA; Protocol Stop: 07/06/21 16:18 Last Admin: 07/06/21 16:20 Dose: 3 ml Documented by: [id number] Furosemide (Furosemide 40 Mg/4 Ml Vial) 40 mg IV ONE ONE Stop: 07/06/21 15:28 Last Admin: 07/06/21 15:44 Dose: 40 mg Documented by: [id number] Potassium Chloride (Potassium Chloride Crtab 20 Meq Tabcr) 40 meq PO NOW STA Stop: 07/06/21 15:28 Last Admin: 07/06/21 15:45 Dose: 40 meq Documented by: [id number] Imaging Data Radiologist's Impression: Chest X-Ray 07/06/21 14:04 SINGLE VIEW CHEST CLINICAL HISTORY: Dyspnea. FINDINGS: An AP, portable, upright chest radiograph is compared to study dated 06/25/2021 and correlated with chest CT dated 05/03/2021. The heart is enlarged noting atherosclerotic calcification of the thoracic aorta. The mitral annulus is densely calcified. The pulmonary vasculature is noncongested. Chronic interstitial thickening is similar to previous. Fibrotic changes again seen at the right apex. Airspace consolidation is again noted at the left lung base. A small left pleural effusion is not excluded. No pneumothorax is seen. The skeletal structures are osteopenic. The bony thorax is grossly intact. Advanced arthritic change is noted in the shoulders. IMPRESSION: 1. Cardiomegaly without radiographic evidence of congestive failure. 2. Small left pleural effusion with left basilar consolidation. This is similar appearance to the 06/25/2021 examination. ACT 112: Negative or not required by law. Electronically signed by: Ab Boston M.D. 07/06/2021 3:01 PM Discharge Plan Visit Data Chief Complaint: Shortness of Breath/Dyspnea Stated Complaint: SOB/SWELLING OF ANKLES ED Provider: Ab Marion Patient Disposition: Admitted As Inpatient Condition: Fair Prescriptions Prescriptions: No Action losartan 25 mg Tablet 25 mg PO QAM RF: 0 aspirin 81 mg Tablet,Delayed Release (Dr/Ec) 81 mg PO QAM RF: 0 Stiolto Respimat 2.5-2.5 mcg/actuation Mist 2 puff INHALATION QAM RF: 0 montelukast 10 mg tablet 10 mg PO HS RF: 0 acetaminophen [Tylenol] 325 mg Tablet 650 mg PO Q4H PRN (Reason: Pain) RF: 0 donepezil 5 mg Tablet 5 mg PO BID RF: 0 lorazepam 0.5 mg Tablet 0.5 mg PO BID RF: 0 docusate sodium [Colace] 100 mg Capsule 100 mg PO BID RF: 0 hydroxyzine HCl 25 mg Tablet 25 mg PO BID RF: 0 calcium carbonate 500 mg calcium (1,250 mg) Tablet,Chewable 500 mg PO BID RF: 0 amiodarone 200 mg Tablet 200 mg PO UD 30 Days Qty: 45 RF: 0 spironolactone 25 mg Tablet 12.5 mg PO DAILY 30 Days Qty: 15 RF: 0 pantoprazole 40 mg Tablet,Delayed Release (Dr/Ec) 40 mg PO BID 30 Days Qty: 60 RF: 0 furosemide 20 mg Tablet 20 mg PO QAM 30 Days Qty: 30 RF: 0 metoprolol tartrate 25 mg Tablet 12.5 mg PO BID 30 Days Qty: 30 RF: 0 sertraline 100 mg tablet 100 mg PO QAM RF: 0
[2021-07-06 14:37] LABS: Basophils # (auto) 0.04 K/uL (0-0.2); Basophils % (auto) 0.5 %; Eosinophils # (auto) 0.06 K/uL (0-0.5); Eosinophils % (auto) 0.8 %; Hematocrit (blood only) 27.5 % (37-47); Hemoglobin 8.2 g/dL (12.0-16.0); Immature Granulocytes # (auto) 0.02 K/uL (0.00-0.02); Immature Granulocytes % (auto) 0.3 %; Lymphocytes # (auto) 0.74 K/uL (1.2-3.4); Lymphocytes % (auto) 10.1 %; Mean Corpuscular Hemoglobin 23.7 pg (25-34); Mean Corpuscular Hgb Conc 29.8 g/dL (32-36); Mean Corpuscular Volume 79.5 fL (80-100); Mean Platelet Volume 10.1 fL (7.4-10.4); Monocytes # (auto) 0.71 K/uL (0.11-0.59); Monocytes % (auto) 9.7 %; Neutrophils # (auto) 5.78 K/uL (1.4-6.5); Neutrophils % (auto) 78.6 %; Platelet Count 372 K/uL (130-400); RDW Coefficient of Variation 19.1 % (11.5-14.5); RDW Standard Deviation 56.6 fL (36.4-46.3); Red Blood Count 3.46 M/uL (4.2-5.4); White Blood Count 7.35 K/uL (4.8-10.8)
[2021-07-06 14:44] LABS: INR 1.1 (0.9-1.1); Partial Thromboplastin Ratio 0.8; Partial Thromboplastin Time 22.8 Seconds (21.0-31.0); Prothrombin Time 11.6 Seconds (9.0-12.0)
--- NOTE | 2021-07-06 15:02 | XRay Report ---
SINGLE VIEW CHEST CLINICAL HISTORY: Dyspnea. FINDINGS: An AP, portable, upright chest radiograph is compared to study dated 06/25/2021 and correlat ed with chest CT dated 05/03/2021. The heart is enlarged noting atherosclerotic calcification of the th oracic aorta. The mitral annulus is densely calcified. The pulmonary vasculature is noncongested. Chr onic interstitial thickening is similar to previous. Fibrotic changes again seen at the right apex. A irspace consolidation is again noted at the left lung base. A small left pleural effusion is not excl uded. No pneumothorax is seen. The skeletal structures are osteopenic. The bony thorax is grossly int act. Advanced arthritic change is noted in the shoulders. IMPRESSION: 1. Cardiomegaly without radiographic evidence of congestive failure. 2. Small left pleural effusion with left basilar consolidation. This is similar appearance to the 05/29 examination. ACT 112: Negative or not required by law. Electronically signed by: Ab Boston M.D. 07/06/2021 3:01 PM
[2021-07-06 15:09] LABS: Alanine Aminotransferase 15 U/L (7-52); Albumin Globulin Ratio 1.6 (0.9-2); Alkaline Phosphatase 50 U/L (34-104); Anion Gap 10 (3-11); Aspartate Aminotransferase 17 U/L (13-39); Bilirubin,Total 0.5 mg/dl (0.2-1.0); Blood Urea Nitrogen 30 mg/dl (6-23); Calcium 8.7 mg/dl (8.5-10.1); Carbon Dioxide 29 mmol/L (21-32); Chloride 100 mmol/L (98-107); Est GFR (African American) 64.8 ml/min; Est GFR (Non-African American) 55.9 ml/min; Globulin 2.5 gm/dl (2.5-4.0); Glucose 108 mg/dl (70-99(Fasting)); Magnesium 1.8 mg/dl (1.7-2.4); Potassium 3.3 mmol/L (3.5-5.1); Sodium 139 mmol/L (136-145); Total Protein 6.5 gm/dl (6.0-8.3)
[2021-07-06] MEDS ORDERED: POTASSIUM CHLORIDE CRTAB 20 MEQ TABCR PO STA (15:27)
[2021-07-06] MEDS ORDERED: FUROSEMIDE 40 MG/4 ML VIAL IV ONE (15:27)
[2021-07-06 15:39] LABS: Influenza A virus by PCR Negative (Neg); Influenza B virus by PCR Negative (Neg); RSV by PCR Negative (Neg); SARS CoV2 RNA(COVID-19) InHosp NEGATIVE (Negative)
[2021-07-06] MEDS ORDERED: ALBUT/IPRATROP 3MG/0.5MG NEB 3 ML VIAL NEB STA (16:17)
--- NOTE | 2021-07-06 16:42 | History & Physical Report ---
Date of Service July 06, 2021 Assessment & Plan (1) Acute heart failure with preserved ejection fraction: (2) Anemia: (3) RUSSELL (dyspnea on exertion): (4) Hypokalemia: Plan: This is an 89-year-old female who has significant past medical history of left breast cancer status post left radical mastectomy, radiation pneumonitis, concerning right upper lobe lesion for possible carcinoma status post empiric radiation, asthmaCOPD, HTN, PAF, anemia who presents to ED secondary to dyspnea on exertion and shortness of breath x2 days. Dyspnea on exertion Acute heart failure with preserved ejection fraction I suspect the RUSSELL may be multifactorial in setting of mild volume overload and possible symptomatic anemia 40 mg IV Lasix given in ED, monitor diuresis She does have lower extremity swelling If dyspnea persist despite diuresis consider transfusing 1 unit PRBC due to symptomatic anemia Will order additional IV Lasix 40 mg x 1 in a.m., Patient may need up titration of home Lasix dose Continue metoprolol and Aldactone Consult cardiology Recent echocardiogram during last admission reviewed monitor on tele Anemia Unspecified, microcytic Obtain anemia panel in a.m. heme negative in ED Eval by GI at OP who recommends continued PPI, feels risk > benefit of scope at this point, normal egd in 2020 consider transfusion if dyspnea persists Hypokalemia replete start 10meq KCl daily monitor closely while on aldactone PAF rate/rhythm controlled on amiodarone and metoprolol no OAC in setting of Anemia at this point HTN continue losartan and metoprolol Hx of CVA lacunar infarct 04/2021 on asa Asthma/COPD syndrome non smoker no acute exac continue home inhaler Anxiety severe recent hospitalization of intentional OD on lorazepam pt denies SI remains on hydroxyzine and as needed ativan hx of L breast ca hx of lung carcinoma s/p XRT hx of radiation pneumonitis DVT ppx: SCD/TEDS, no chemical ppx 2/2 to anemia DNR/DNI DISPO: PCU, pt residse at [facility] PCP: Michael Pt was seen and examined in collaboration with Dr. Fry, please see addendum History of Present Illness Chief Complaint: RUSSELL/SOB x 2 days. Primary Care Provider: Bear Rodriguez MD This is an 89-year-old female who has significant past medical history of left breast cancer status post left radical mastectomy, radiation pneumonitis, concerning right upper lobe lesion for possible carcinoma status post empiric radiation, asthmaCOPD, HTN, PAF, anemia who presents to ED secondary to dyspnea on exertion and shortness of breath x2 days. Of significance patient was hospitalized 06/24 to 06/29/2021 secondary to acute HFpEF. On admission she was found to have bilateral pleural effusions right greater than left. She underw ent thoracentesis on right at 800 mL. It was transudative and negative for malignancy. She also had echocardiogram which revealed EF 65 to 70%, left atrium severely dilated, mild MS, mild TR, moderate MR, severe pulmonary hypertension. During hospitalization she did develop A. fib with RVR for approximately 4 hours. She was treated with IV amiodarone and converted to oral amiodarone. She remained on metoprolol. She was not started on anticoagulant secondary to anemia and bleeding risk. On admission she also had a hemoglobin of 6.6 and required transfusion of PRBC x1 unit. She was seen and evaluated by GI and encouraged to take a PPI. She was also recently seen in the outpatient by gastroenterology and underwent EGD last in 2019 which was unrevealing. Her last colonoscopy was approximately 10 years ago. GI felt the risk of anesthesia risk the benefit of scoping was greater and therefore no current plan to pursue endoscopy at this time. Son is at bedside. He states he notes over the last 2 to 3 days patient has become more short of breath. Patient does have underlying dementia so history is slightly limited and guarded. He states he notices she becomes short of breath after walking 30 to 40 feet. Patient describes this as she is having difficulty walking, but he clarifies and states she can walk well it just that she gets short of breath. She denies shortness of breath at rest but is tachypneic with conversation. She denies any chest pain or associated palpitations, diaphoresis, lightheadedness, dizziness or nausea. She otherwise denies any recent illness, fever, chills, sweats, lightheadedness, dizziness, nausea, vomiting, abdominal pain, change in bowel or urinary habits. She does have a swelling to her lower extremities. She does not weigh herself on a regular basis and they do not weigh herself at the personal-long term. She has been taking medications regularly as they provide her with her medications. In ED patient remained hemodynamically stable and was saturating well on room air. She was dyspneic with conversation. Lab work was notable for a microcytic anemia with a hemoglobin stable at 8.2 and hematocrit 27.5. Otherwise her WBC a nd platelet counts were normal. Her potassium was mildly low at 3.3 and her BUN was elevated at 30 and creatinine 1.91. Her BMP was higher than previous at 829. She was negative for SARS-CoV-2 and influenza. Chest x-ray revealed cardiomegaly with small left pleural effusion and left basilar consolidation. This was similar in appearance to 06/25/2021. No evidence of failure. Allergies Allergy/AdvReac Type Severity Reaction Status Date / Time bee venom protein (honey bee) Allergy Severe ANAPHYLAXIS Verified 07/06/21 15:03 Home Medications Medication Instructions Recorded Confirmed Type losartan 25 mg tablet 25 mg PO QAM 03/07/18 07/06/21 History aspirin 81 mg tablet,delayed 81 mg PO QAM 04/30/21 07/06/21 History release montelukast 10 mg tablet 10 mg PO HS 04/30/21 07/06/21 History tiotropium 2.5 mcg-olodaterol 2.5 2 puff INHALATION QAM 04/30/21 07/06/21 History mcg/actuation mist for inhalation (Stiolto Respimat) acetaminophen 325 mg tablet 650 mg PO Q4H PRN 06/24/21 07/06/21 History (Tylenol) calcium carbonate 500 mg calcium 500 mg PO BID 06/24/21 07/06/21 History (1,250 mg) chewable tablet docusate sodium 100 mg capsule 100 mg PO BID 06/24/21 07/06/21 History (Colace) donepezil 5 mg tablet 5 mg PO BID 06/24/21 07/06/21 History hydroxyzine HCl 25 mg tablet 25 mg PO BID 06/24/21 07/06/21 History lorazepam 0.5 mg tablet 0.5 mg PO BID 06/24/21 07/06/21 History amiodarone 200 mg tablet 200 mg PO UD 30 Days #45 tab 06/28/21 07/06/21 Rx furosemide 20 mg tablet 20 mg PO QAM 30 Days #30 tab 06/28/21 07/06/21 Rx metoprolol tartrate 25 mg tablet 12.5 mg PO BID 30 Days #30 tab 06/28/21 05/ Rx pantoprazole 40 mg tablet,delayed 40 mg PO BID 30 Days #60 tab 06/28/21 07/06/21 Rx release spironolactone 25 mg tablet 12.5 mg PO DAILY 30 Days #15 tab 06/28/21 07/06/21 Rx sertraline 100 mg tablet 100 mg PO QAM 07/06/21 07/06/21 History Past Med/Surg History Medical History Abnormal CT of the chest Anxiety Asthma USING RESCUE INHALER FREQUENTLY/DAILY Asthma-COPD overlap syndrome Cancer BREAST CANCER-LEFT MASTECTOMY Chronic obstructive pulmonary disease Deep vein thrombosis 15 YEARS AGO S/P LEG SURGERY Dysphagia HX ESOPHAGEAL STRETCHING GERD (gastroesophageal reflux disease) History of pulmonary embolism Hypertension Osteoarthritis Prolapsed bladder Pulmonary nodule, right Rectal bleeding Surgical History History of cataract surgery RT/LEFT History of colonoscopy History of esophagogastroduodenoscopy (EGD) History of mastectomy LEFT (NO BP/LAB DRAWS) History of tonsillectomy History of tooth extraction History of total hysterectomy with bilateral salpingo-oophorectomy (BSO) History of total knee replacement LEFT/RT Family History (Updated 07/06/21 @ 16:42 by Esperanza Huber PA-C) Other Family history non-contributory Social History Smoking Status: Never smoker Second Hand Exposure: No; Hx Alcohol Use: No Hx Substance Use: No Preferred Language: Citizen Of [place] Communication Ability: Effective Leather Scrubber Required: No Beliefs That Will Affect Care: Yazidism marital status: / Current Living Situation: Personal Care Facility Feels Safe at Home: Yes Childhood Exposure to Second-Hand Smoke: Yes Dental Care, Regularly: Yes Assistive Devices: Glasses and Walker Review of Systems Review of Systems: All systems reviewed & are unremarkable except as noted in HPI & below Physical Exam Physical Exam: Constitutional: WD/WN, elderly, F, dyspneic with conversation, vitals as above, NAD, sitting up in bed, pleasant, conversing easily Head: Normocephalic, Atraumatic Eyes: PERRL, conjunctivae normal, anicteric sclerae ENMT: external ear and nose normal, oropharynx normal Neck: trachea midline, no thyromegaly normal visual inspection Respiratory: normal respiratory effort, lungs clear to auscultation, no wheeze, rales, rhonchi. Normal insp/exp effort, no accessory muscle use Cardiovascular: RRR, no murmur, +2 Lower ext edema R > L Vessels: no JVD or carotid bruit Chest: normal inspection of chest Abdomen: normal bowel sounds, soft, nontender, no hepatosplenomegaly Musculoskeletal: no cyanosis or clubbing, [id number] Skin: no rashes, warm and dry normal turgor Neurologic: PERRL, EOMI, accommodation nl, no face palsy, no dysarthria CN's II-XI intact bilaterally and moves all extremities Psychiatric: A+Ox3, euthymic affect Lymphatic: no cervical or axillary lymphadenopathy : deferred Results & Data Results & Data ([facility]) Vital Signs (Past 12 Hours) Vital Signs Temp Pulse Pulse Resp BP BP Pulse Ox 07/06/21 15:51 64 16 160/84 H 95 07/06/21 14:37 59 L 18 97 07/06/21 14:33 60 18 148/63 H 97 07/06/21 13:53 36.2 C L 62 22 148/66 H 98 Diagnostic Findings Chest X-Ray 07/06/21 14:04 SINGLE VIEW CHEST CLINICAL HISTORY: Dyspnea. FINDINGS: An AP, portable, upright chest radiograph is compared to study dated 06/25/2021 and correlated with chest CT dated 05/03/2021. The heart is enlarged noting atherosclerotic calcification of the thoracic aorta. The mitral annulus is densely calcified. The pulmonary vasculature is noncongested. Chronic interstitial thickening is similar to previous. Fibrotic changes again seen at the right apex. Airspace consolidation is again noted at the left lung base. A small left pleural effusion is not excluded. No pneumothorax is seen. The skeletal structures are osteopenic. The bony thorax is grossly intact. Advanced arthritic change is noted in the shoulders. IMPRESSION: 1. Cardiomegaly without radiographic evidence of congestive failure. 2. Small left pleural effusion with left basilar consolidation. This is similar appearance to the 06/25/2021 examination. ACT 112: Negative or not required by law. Electronically signed by: Ab Boston M.D. 07/06/2021 3:01 PM Medications Administered Medication List Discontinued Medications Albuterol (Albut/Ipratrop 3mg/0.5mg Neb 3 Ml Vial) 3 ml NEB NOW STA; Protocol Stop: 07/06/21 16:18 Last Admin: 07/06/21 16:20 Dose: 3 ml Documented by: [id number] Furosemide (Furosemide 40 Mg/4 Ml Vial) 40 mg IV ONE ONE Stop: 07/06/21 15:28 Last Admin: 07/06/21 15:44 Dose: 40 mg Documented by: [id number] Potassium Chloride (Potassium Chloride Crtab 20 Meq Tabcr) 40 meq PO NOW STA Stop: 07/06/21 15:28 Last Admin: 07/06/21 15:45 Dose: 40 meq Documented by: [id number] ECG Rate (beats per minute): 62 Rhythm: normal sinus Additional Comments: QTC 472ms COVID-19 Results Results COVID-19 Adm Lab Results: RBC 3.46 M/uL (4.2-5.4) L 07/06/21 WBC 7.35 K/uL (4.8-10.8) 07/06/21 Hgb 8.2 g/dL (12.0-16.0) L 07/06/21 Hct 27.5 % (37-47) L 07/06/21 Plt Count 372 K/uL (130-400) 07/06/21 Neutrophils (%) (Auto) 78.6 % 07/06/21 Lymphocytes (%) (Auto) 10.1 % 07/06/21 Monocytes # (Auto) 0.71 K/uL (0.11-0.59) H 07/06/21 Eosinophils # (Auto) 0.06 K/uL (0-0.5) 07/06/21 Immature Granulocyte % (Auto) 0.3 % 07/06/21 Neutrophils # (Auto) 5.78 K/uL (1.4-6.5) 07/06/21 Lymphocytes # (Auto) 0.74 K/uL (1.2-3.4) L 07/06/21 Monocytes # (Auto) 0.71 K/uL (0.11-0.59) H 07/06/21 Eosinophils # (Auto) 0.06 K/uL (0-0.5) 07/06/21 Basophils # (Auto) 0.04 K/uL (0-0.2) 07/06/21 Immature Granulocyte # (Auto) 0.02 K/uL (0.00-0.02) 07/06/21 Na 139 mmol/L (136-145) 07/06/21 K 3.3 mmol/L (3.5-5.1) L 07/06/21 Cl 100 mmol/L (98-107) 07/06/21 CO2 29 mmol/L (21-32) 07/06/21 Anion Gap 10 (3-11) 07/06/21 BUN 30 mg/dl (6-23) H 07/06/21 Creatinine 0.91 mg/dl (0.6-1.2) 07/06/21 BUN/Creatinine Ratio 33.0 (10-20) H 07/06/21 Glucose Level 108 mg/dl (70-99(Fasting)) H 07/06/21 Ca 8.7 mg/dl (8.5-10.1) 07/06/21 Total Bilirubin 0.5 mg/dl (0.2-1.0) 07/06/21 AST/SGOT 17 U/L (13-39) 07/06/21 ALT/SGPT 15 U/L (7-52) 07/06/21 Alkaline Phosphatase 50 U/L (34-104) 07/06/21 Total Protein 6.5 gm/dl (6.0-8.3) 07/06/21 Albumin 4.0 gm/dl (3.4-5.0) 07/06/21 Globulin 2.5 gm/dl (2.5-4.0) 07/06/21 Albumin/Globulin Ratio 1.6 (0.9-2) 07/06/21 PTT 22.8 Seconds (21.0-31.0) 07/06/21 INR 1.1 (0.9-1.1) 07/06/21 COVID-19 PCR NEGATIVE (Negative) 07/06/21 Influenza Virus Type A (PCR) Negative (Neg) 07/06/21 Influenza Virus Type B (PCR) Negative (Neg) 07/06/21 Chest X-Ray 07/06/21 Code Status & VTE Plan Code Status DNR/DNI VTE Prophylaxis Plan VTE Prophylaxis will be ordered: Yes Supervising Physician Co-Signing Physician Notes 89-year-old lady with PMH of left breast cancer s/p left radical mastectomy, radiation pneumonitis, concern for right upper lobe lesion for possible carcinoma s/p empiric radiation, asthma COPD syndrome, HTN, PAF, anemia presented to the ED 07/06 secondary to worsening shortness of breath since last 2 to 3 days. Per patient, she becomes short of breath when she moves around and she slows down. This has been going on since last 2 to 3 days. Patient was recently admitted secondary to acute heart failure with preserved ejection fraction. She is being managed at [facility]. She denies any fever/chills/headache/lightheadedness/flulike symptoms/acute changes in bowel or bladder habit. On lab review, hemoglobin 8.4, normal baseline seems to be around 12-13. Was recently evaluated by GI as an outpatient and deemed colonoscopy to be more risks than benefit for her. Iron profile in a.m. follow up HnH in AM. FOBT in the ED was negative. Admitting EKG with no acute changes and admitting chest x-ray with no congestive changes. Admitting BNP level has increased. Her dyspnea on exertion could likely from acute worsening of HFpEF complicated by her low hemoglobin levels. IV diuresis, cardiology consult. Fluid restriction. Monitor and replete electrolytes. Upon examination: GENERAL: Alert and oriented x3. NAD, on RA. Appears ill and weak. HEENT: No pallor, no icterus. Pupils equal, round and reactive to light. Oral mucosa moist. NECK: No JVD, no neck masses. HEART: S1 and S2 heard. Regular rate and rhythm. No murmur, no gallop. RESPIRATORY SYSTEM: Normal AP diameter. No accessory muscle use. No wheezing, b/b crackles. Dyspnea during conversation. ABDOMEN: Soft, bowel sounds present, nontender, no distention. CENTRAL NERVOUS SYSTEM: No facial droop. Speech is clear. Obeys simple commands. Moves extremities. EXTREMITIES: 1-2+ BLE edema, no erythema seen. I have seen and examined the patient and have discussed the case with the provider above. I agree with the assessment and plan as stated. (1) Anemia Anemia type: unspecified type Qualified Code(s): D64.9 - Anemia, unspecified
[2021-07-06] MEDS ORDERED: ONDANSETRON INJ 2 MG/ML 2 ML VIAL IV PRN (18:31)
[2021-07-06] MEDS ORDERED: ACETAMINOPHEN 325 MG TAB PO PRN (18:31)
[2021-07-06] MEDS ORDERED: AMIODARONE 200 MG TAB PO SCH (18:31)
[2021-07-06] MEDS ORDERED: MAGNESIUM HYDROXIDE SUSP 30 ML UDC PO PRN (18:31)
[2021-07-06] MEDS ORDERED: ALUMINUM/MAGNESIUM SUSP 30 ML UDC PO PRN (18:31)
[2021-07-06] MEDS ORDERED: POLYETHYLENE (MIRALAX) 17 GM PACK PO PRN (18:31)
[2021-07-06] MEDS: DOCUSATE SODIUM 100 MG CAP PO SCH (20:22)
[2021-07-06] MEDS: METOPROLOL TARTRATE 25 MG TAB PO SCH (20:22)
[2021-07-06] MEDS: DONEPEZIL HCL 5 MG TAB PO SCH (20:23)
[2021-07-06] MEDS: hydrOXYzine HCl 25 MG TAB PO SCH (20:23)
[2021-07-06] MEDS: AMIODARONE 200 MG TAB PO SCH (20:24)
[2021-07-06] MEDS: PANTOprazole 40 MG TAB PO SCH (20:25)
[2021-07-06] MEDS: MONTELUKAST SODIUM 10 MG TABLET PO SCH (20:25)
[2021-07-06] MEDS: LORazepam 0.5 MG TAB PO SCH (20:28)
[2021-07-06] MEDS: CALCIUM CARBONATE 1250MG TAB PO SCH (20:28)
[2021-07-06] MEDS ORDERED: CALCIUM CARBONATE 1250MG TAB PO SCH (21:00)
[2021-07-07 07:32] LABS: Basophils # (auto) 0.05 K/uL (0-0.2); Basophils % (auto) 0.8 %; Eosinophils # (auto) 0.11 K/uL (0-0.5); Eosinophils % (auto) 1.8 %; Hemoglobin 8.2 g/dL (12.0-16.0); Immature Granulocytes # (auto) 0.02 K/uL (0.00-0.02); Immature Granulocytes % (auto) 0.3 %; Lymphocytes # (auto) 0.82 K/uL (1.2-3.4); Lymphocytes % (auto) 13.4 %; Mean Corpuscular Hemoglobin 23.9 pg (25-34); Mean Corpuscular Hgb Conc 30.4 g/dL (32-36); Mean Corpuscular Volume 78.7 fL (80-100); Mean Platelet Volume 9.9 fL (7.4-10.4); Monocytes # (auto) 0.63 K/uL (0.11-0.59); Monocytes % (auto) 10.3 %; Neutrophils # (auto) 4.51 K/uL (1.4-6.5); Neutrophils % (auto) 73.4 %; Platelet Count 352 K/uL (130-400); RDW Coefficient of Variation 19.4 % (11.5-14.5); RDW Standard Deviation 56.1 fL (36.4-46.3); Red Blood Count 3.43 M/uL (4.2-5.4); White Blood Count 6.14 K/uL (4.8-10.8)
[2021-07-07] MEDS: CALCIUM CARBONATE 1250MG TAB PO SCH ×2 (08:04→20:12)
[2021-07-07] MEDS: PANTOprazole 40 MG TAB PO SCH ×2 (08:04→20:12)
[2021-07-07] MEDS: ASPIRIN 81 MG ECTAB PO SCH (08:04)
[2021-07-07] MEDS: POTASSIUM CHLORIDE 10 MEQ TABCR PO SCH (08:05)
[2021-07-07] MEDS: DONEPEZIL HCL 5 MG TAB PO SCH ×2 (08:05→20:11)
[2021-07-07] MEDS: SPIRONOLACTONE 12.5 MG TAB PO SCH (08:05)
[2021-07-07] MEDS: LOSARTAN POTASSIUM 25 MG TAB PO SCH (08:05)
[2021-07-07] MEDS: SERTRALINE HCL 100 MG TABLET PO SCH (08:05)
[2021-07-07] MEDS: hydrOXYzine HCl 25 MG TAB PO SCH ×2 (08:05→20:13)
[2021-07-07] MEDS: AMIODARONE 200 MG TAB PO SCH (08:05)
[2021-07-07] MEDS: UMECLIDINIUM/VILANTEROL 62.5/25MCG 7 PUFFS/INHALER INH SCH (08:06)
[2021-07-07] MEDS: DOCUSATE SODIUM 100 MG CAP PO SCH ×2 (08:06→20:10)
[2021-07-07] MEDS: LORazepam 0.5 MG TAB PO SCH ×2 (08:09→20:15)
[2021-07-07 08:15] LABS: Ferritin 21.3 ng/ml (8-388)
[2021-07-07 08:20] LABS: Folate (Folic Acid) > 22.30 ng/ml (>5.38)
[2021-07-07 08:21] LABS: Vitamin B12 855 pg/ml (180-914)
[2021-07-07 08:53] LABS: BUN Creatinine Ratio 36.6 (10-20); Calcium 8.7 mg/dl (8.5-10.1); Creatinine Clr Calc Pharmacy 39.8 ml/min; Est GFR (African American) 73.5 ml/min; Est GFR (Non-African American) 63.4 ml/min; Magnesium 1.9 mg/dl (1.7-2.4); Potassium 3.7 mmol/L (3.5-5.1)
[2021-07-07] MEDS ORDERED: FUROSEMIDE 40 MG/4 ML VIAL IV SCH (09:00)
[2021-07-07] MEDS: METOPROLOL TARTRATE 25 MG TAB PO SCH ×2 (09:19→20:10)
--- NOTE | 2021-07-07 14:08 | Hospitalist Progress Note ---
Date of Service July 07, 2021 Assessment & Plan (1) Acute heart failure with preserved ejection fraction: (2) Anemia: (3) RUSSELL (dyspnea on exertion): (4) Hypokalemia: Plan: 89-year-old female who has significant past medical history of left breast cancer status post left radical mastectomy, radiation pneumonitis, concerning right upper lobe lesion for possible carcinoma status post empiric radiation, asthmaCOPD, HTN, PAF, anemia who presents to ED secondary to dyspnea on exertion and shortness of breath x2 days. Dyspnea on exertion Acute heart failure with preserved ejection fraction CXR - Cardiomegaly, small left pleural effusion with left basilar consolidation similar to 06/25/21 Likely multifactorial in setting of mild volume overload and possible symptomatic anemia Got 40 mg IV Lasix given in ED Reports improved leg edema Continue lasix iv 40mg daily for now Continue metoprolol and Aldactone Awaiting cardiology recs Recent echocardiogram during last admission reviewed Anemia Microcytic anemia Heme negative in ED Eval by GI at OP who recommends continued PPI, feels risk > benefit of scope at this point, normal egd in 2019 Patient has iron deficiency anemia based on available iron studies. TIBC pending Start po iron every other day.Obtain anemia panel in a.m. Hb is stable at 8.2 Hypokalemia K was 3.3 on presentation Was repleted K is 3.7 today Monitor closely while on diuretics PAF Rate/rhythm controlled on amiodarone and metoprolol No OAC in setting of Anemia at this point Hypertension Continue losartan and metoprolol Hx of CVA Lacunar infarct 04/2021 On asa Asthma/COPD syndrome Non smoker No acute exac Continue home inhaler Anxiety Recent hospitalization of intentional OD on lorazepam Current denies SI Continue hydroxyzine and ativan hx of L breast ca hx of lung carcinoma s/p XRT hx of radiation pneumonitis DVT ppx: SCD/TEDS, no chemical ppx 2/2 to anemia DNR/DNI DISPO: PCU, pt resides at [facility] PCP: Michael Admission and Anticipated Discharge Date Admission Date: July 06, 2021 Subjective Patient seen and examined Patient reports dyspnea on exertion Denied chest pain, cough, palpitation Reported leg swelling is improved Denied any fevers, chills, nausea, vomiting, abd pain, diarrhea Denied dysuria, freq Physical Exam Constitutional: + well hydrated; no acute distress Eyes: PERRL, conjunctivae normal, anicteric sclerae ENMT: external ear and nose normal, oropharynx normal Respiratory: On room air. Not in respiratory distress. Reduced air entry left lung zone posteriorly Cardiovascular: Rate/Rhythm: regular rate and regular rhythm S1 S2 Gastrointestinal (Abdomen): normal bowel sounds, soft, nontender, no hepatosplenomegaly Musculoskeletal: trace pedal edema Neurologic: PERRL, EOMI, accommodation nl, no face palsy, no dysarthria Psychiatric: A+Ox3, euthymic affect Results & Data Results & Data ([facility]) Vital Signs (Past 12 Hours) Vital Signs Temp Pulse Pulse Resp BP Pulse Ox 07/07/21 11:57 36.6 C 60 18 122/58 L 92 07/07/21 08:14 36.6 C 77 20 165/70 H 97 07/07/21 08:00 66 07/07/21 05:12 61 07/07/21 03:24 36.5 C 63 156/76 H 99 Laboratory Results Abnormal lab results 07/06/21 07/06/21 07/06/21 Range/Units 14:20 14:20 14:20 RBC 3.46 L (4.2-5.4) M/uL Hgb 8.2 L (12.0-16.0) g/dL Hct 27.5 L (37-47) % MCV 79.5 L (80-100) fL MCH 23.7 L (25-34) pg MCHC 29.8 L (32-36) g/dL RDW Std Deviation 56.6 H (36.4-46.3) fL RDW Coeff of [place] 19.1 H (11.5-14.5) % Lymph # (Auto) 0.74 L (1.2-3.4) K/uL Wilkinson # (Auto) 0.71 H (0.11-0.59) K/uL Potassium 3.3 L (3.5-5.1) mmol/L BUN 30 H (6-23) mg/dl BUN/Creatinine Ratio 33.0 H (10-20) Glucose 108 H (70-99(Fasting)) mg/dl Iron (35-150) mcg/dl B-Natriuretic Peptide 829 H (0-100) pg/ml 05/11/22 05/11/22 Range/Units 07:11 07:11 RBC 3.43 L (4.2-5.4) M/uL Hgb 8.2 L (12.0-16.0) g/dL Hct 27.0 L (37-47) % MCV 78.7 L (80-100) fL MCH 23.9 L (25-34) pg MCHC 30.4 L (32-36) g/dL RDW Std Deviation 56.1 H (36.4-46.3) fL RDW Coeff of [place] 19.4 H (11.5-14.5) % Lymph # (Auto) 0.82 L (1.2-3.4) K/uL Wilkinson # (Auto) 0.63 H (0.11-0.59) K/uL Potassium (3.5-5.1) mmol/L BUN 30 H (6-23) mg/dl BUN/Creatinine Ratio 36.6 H (10-20) Glucose (70-99(Fasting)) mg/dl Iron 19 L (35-150) mcg/dl B-Natriuretic Peptide (0-100) pg/ml (1) Anemia Anemia type: unspecified type Qualified Code(s): D64.9 - Anemia, unspecified
[2021-07-07] MEDS: FERROUS SULFATE 325 MG TAB PO SCH (15:26)
--- NOTE | 2021-07-07 16:24 | Cardiology Consultation ---
Date of Consultation July 07, 2021 Assessment & Plan (1) RUSSELL (dyspnea on exertion): (2) Acute heart failure with preserved ejection fraction: (3) Paroxysmal atrial fibrillation: Patient is an 89-year-old female with recent hospitalization and difficulties as outlined including acute heart failure with preserved ejection fraction, pleural effusion, paroxysmal atrial fibrillation returns now once again with dyspnea on exertion mild volume overload historically. Chest x-ray without pulmonary edema symptoms of edema and dyspnea have improved since hospitalization and IV diuretics Plan: Hold IV diuretics and switch to oral in a.m. unless volume issues persist Supplement potassium Reduce amiodarone to 200 mg once per day Agree with treatment of anemia History of Present Illness Reason for Consultation: Exertional dyspnea, pedal edema Requesting Physician: Page Christianson MD Attending Physician: Page Christianson MD History of Present Illness Patient is a complex 89-year-old female recently discharged from [facility]. Patient was seen during that hospitalization please refer to prior notes and consultations. She presented that time with multifactorial stress including bilateral pleural effusions, diastolic heart failure and paroxysmal atrial fibrillation. Patient represents per her description and admission notes increasing exertional fatigue and dyspnea as well as pedal edema. Lab work demonstrated stable but persistent anemia She is received IV diuretics since presentation with clinical improvement. Pedal edema resolved patient less dyspneic when ambulating in room. Currently denies any complaints Allergies Allergy/AdvReac Type Severity Reaction Status Date / Time bee venom protein (honey bee) Allergy Severe ANAPHYLAXIS Verified 07/06/21 15:03 Home Medications Medication Instructions Recorded Confirmed Type losartan 25 mg tablet 25 mg PO QAM 03/07/18 07/06/21 History aspirin 81 mg tablet,delayed 81 mg PO QAM 04/30/21 07/06/21 History release montelukast 10 mg tablet 10 mg PO HS 04/30/21 07/06/21 History tiotropium 2.5 mcg-olodaterol 2.5 2 puff INHALATION QAM 04/30/21 07/06/21 History mcg/actuation mist for inhalation (Stiolto Respimat) acetaminophen 325 mg tablet 650 mg PO Q4H PRN 06/24/21 07/06/21 History (Tylenol) calcium carbonate 500 mg calcium 500 mg PO BID 06/24/21 07/06/21 History (1,250 mg) chewable tablet docusate sodium 100 mg capsule 100 mg PO BID 06/24/21 07/06/21 History (Colace) donepezil 5 mg tablet 5 mg PO BID 06/24/21 07/06/21 History hydroxyzine HCl 25 mg tablet 25 mg PO BID 06/24/21 07/06/21 History lorazepam 0.5 mg tablet 0.5 mg PO BID 06/24/21 07/06/21 History amiodarone 200 mg tablet 200 mg PO UD 30 Days #45 tab 06/28/21 07/06/21 Rx furosemide 20 mg tablet 20 mg PO QAM 30 Days #30 tab 06/28/21 07/06/21 Rx metoprolol tartrate 25 mg tablet 12.5 mg PO BID 30 Days #30 tab 06/28/21 07/06/21 Rx pantoprazole 40 mg tablet,delayed 40 mg PO BID 30 Days #60 tab 06/28/21 07/06/21 Rx release spironolactone 25 mg tablet 12.5 mg PO DAILY 30 Days #15 tab 06/28/21 07/06/21 Rx sertraline 100 mg tablet 100 mg PO QAM 07/06/21 07/06/21 History Patient History Medical History Abnormal CT of the chest Anxiety Asthma USING RESCUE INHALER FREQUENTLY/DAILY Asthma-COPD overlap syndrome Cancer BREAST CANCER-LEFT MASTECTOMY Chronic obstructive pulmonary disease Deep vein thrombosis 15 YEARS AGO S/P LEG SURGERY Dysphagia HX ESOPHAGEAL STRETCHING GERD (gastroesophageal reflux disease) History of pulmonary embolism Hypertension Osteoarthritis Prolapsed bladder Pulmonary nodule, right Rectal bleeding Surgical History History of cataract surgery RT/LEFT History of colonoscopy History of esophagogastroduodenoscopy (EGD) History of mastectomy LEFT (NO BP/LAB DRAWS) History of tonsillectomy History of tooth extraction History of total hysterectomy with bilateral salpingo-oophorectomy (BSO) History of total knee replacement LEFT/RT Family History Other Family history non-contributory Social History Smoking Status: Never smoker Second Hand Exposure: No; Do You Dip or Chew Tobacco: No; Hx Alcohol Use: No Hx Substance Use: No Preferred Language: Latvian Communication Ability: Effective Service Aide Required: No Beliefs That Will Affect Care: Gnosticist marital status: Current Living Situation: Personal Care Facility Other Information That Helps Us Care for You: No Feels Safe at Home: Yes Safety Concerns: Feels Safe At This Time Childhood Exposure to Second-Hand Smoke: Yes Dental Care, Regularly: Yes Assistive Devices: Walker Review of Systems Review of Systems: All systems reviewed & are unremarkable except as noted in HPI & below Physical Exam Constitutional: well developed and well nourished Eyes: PERRL, conjunctivae normal, anicteric sclerae ENMT: external ear and nose normal, oropharynx normal Neck: trachea midline, no thyromegaly Respiratory: Auscultation: + diminished lung sounds Psychiatric: A+Ox3, euthymic affect Results & Data ([facility]) Vital Signs (Past 12 Hours) Vital Signs Temp Pulse Pulse Resp BP Pulse Ox 07/07/21 15:50 36.6 C 64 20 123/91 92 07/07/21 11:57 36.6 C 60 18 122/58 L 92 07/07/21 08:14 36.6 C 77 20 165/70 H 97 07/07/21 08:00 66 07/07/21 05:12 61 Laboratory Results Laboratory Results - last 24 hr 07/07/21 07/07/21 07/07/21 07:11 07:11 07:11 WBC 6.14 RBC 3.43 L Hgb 8.2 L Hct 27.0 L MCV 78.7 L MCH 23.9 L MCHC 30.4 L RDW Std Deviation 56.1 H RDW Coeff of [place] 19.4 H Plt Count 352 MPV 9.9 Immature Gran % (Auto) 0.3 Neut % (Auto) 73.4 Lymph % (Auto) 13.4 Pope % (Auto) 10.3 Eos % (Auto) 1.8 Baso % (Auto) 0.8 Neut # (Auto) 4.51 Lymph # (Auto) 0.82 L Pope # (Auto) 0.63 H Eos # (Auto) 0.11 Baso # (Auto) 0.05 Immature Gran # (Auto) 0.02 Sodium 138 Potassium 3.7 Chloride 101 Carbon Dioxide 31 Anion Gap 6 BUN 30 H Creatinine 0.82 Est Cr Clr Drug Dosing 39.8 Est GFR ( Amer) 73.5 Est GFR (Non-Af Amer) 63.4 BUN/Creatinine Ratio 36.6 H Glucose 90 Calcium 8.7 Magnesium 1.9 Iron 19 L Unsaturated IBC Transferrin 313 Ferritin 21.3 Vitamin B12 855 Folate > 22.30 TSH 07/07/21 07/07/21 07:11 07:11 WBC RBC Hgb Hct MCV MCH MCHC RDW Std Deviation RDW Coeff of [place] Plt Count MPV Immature Gran % (Auto) Neut % (Auto) Lymph % (Auto) Pope % (Auto) Eos % (Auto) Baso % (Auto) Neut # (Auto) Lymph # (Auto) Pope # (Auto) Eos # (Auto) Baso # (Auto) Immature Gran # (Auto) Sodium Potassium Chloride Carbon Dioxide Anion Gap BUN Creatinine Est Cr Clr Drug Dosing Est GFR ( Amer) Est GFR (Non-Af Amer) BUN/Creatinine Ratio Glucose Calcium Magnesium Iron Unsaturated IBC 393 H Transferrin Ferritin Vitamin B12 Folate TSH 1.318 ECG Additional Comments: EKG 07/07/2021: Normal sinus rhythm Possible Left atrial enlargement Incomplete right bundle branch block Borderline ECG When compared with ECG of 28-JUN-2021 06:28, No significant change was found
[2021-07-07] MEDS: MONTELUKAST SODIUM 10 MG TABLET PO SCH (20:11)
--- NOTE | 2021-07-08 06:02 | Electrocardiogram Report ---
Test Reason : Blood Pressure : / mmHG Vent. Rate : 062 BPM Atrial Rate : 062 BPM P-R Int : 160 ms QRS Dur : 096 ms QT Int : 466 ms P-R-T Axes : 076 076 071 degrees QTc Int : 472 ms Poor data quality, interpretation may be adversely affected Normal sinus rhythm Possible Left atrial enlargement Incomplete right bundle branch block Borderline ECG When compared with ECG of 28-JUN-2021 06:28, No significant change was found Confirmed by Glenn Bragg ([id number]) on 07/08/2021 6:01:36 AM Referred By: REFERRED SELF Confirmed By:Glenn Bragg
[2021-07-08 06:26] LABS: Hematocrit (blood only) 27.3 % (37-47); Hemoglobin 8.3 g/dL (12.0-16.0); Mean Corpuscular Hemoglobin 23.6 pg (25-34); Mean Corpuscular Hgb Conc 30.4 g/dL (32-36); Mean Corpuscular Volume 77.8 fL (80-100); Mean Platelet Volume 9.7 fL (7.4-10.4); Platelet Count 341 K/uL (130-400); RDW Coefficient of Variation 19.4 % (11.5-14.5); RDW Standard Deviation 55.8 fL (36.4-46.3); Red Blood Count 3.51 M/uL (4.2-5.4); White Blood Count 5.43 K/uL (4.8-10.8)
[2021-07-08 06:51] LABS: BUN Creatinine Ratio 42.9 (10-20); Calcium 8.5 mg/dl (8.5-10.1); Creatinine Clr Calc Pharmacy 51.1 ml/min; Est GFR (African American) 92.2 ml/min; Est GFR (Non-African American) 79.5 ml/min; Magnesium 1.8 mg/dl (1.7-2.4); Phosphorus 3.5 mg/dl (2.5-4.9); Potassium 3.3 mmol/L (3.5-5.1)
[2021-07-08] MEDS: DOCUSATE SODIUM 100 MG CAP PO SCH ×2 (07:50→19:31)
[2021-07-08] MEDS: hydrOXYzine HCl 25 MG TAB PO SCH ×2 (07:51→19:30)
[2021-07-08] MEDS: LORazepam 0.5 MG TAB PO SCH ×2 (07:51→19:35)
[2021-07-08] MEDS: SPIRONOLACTONE 12.5 MG TAB PO SCH (07:51)
[2021-07-08] MEDS: SERTRALINE HCL 100 MG TABLET PO SCH (07:51)
[2021-07-08] MEDS: POTASSIUM CHLORIDE 10 MEQ TABCR PO SCH (07:51)
[2021-07-08] MEDS: ASPIRIN 81 MG ECTAB PO SCH (07:51)
[2021-07-08] MEDS: AMIODARONE 200 MG TAB PO SCH (07:51)
[2021-07-08] MEDS: CALCIUM CARBONATE 1250MG TAB PO SCH ×2 (07:52→19:32)
[2021-07-08] MEDS: METOPROLOL TARTRATE 25 MG TAB PO SCH ×2 (07:52→19:28)
[2021-07-08] MEDS: UMECLIDINIUM/VILANTEROL 62.5/25MCG 7 PUFFS/INHALER INH SCH (07:52)
[2021-07-08] MEDS: PANTOprazole 40 MG TAB PO SCH ×2 (07:52→19:28)
[2021-07-08] MEDS: DONEPEZIL HCL 5 MG TAB PO SCH ×2 (07:52→19:31)
[2021-07-08] MEDS: LOSARTAN POTASSIUM 25 MG TAB PO SCH (07:52)
[2021-07-08] MEDS ORDERED: POTASSIUM CHLORIDE CRTAB 20 MEQ TABCR PO STA (08:20)
[2021-07-08] MEDS: FUROSEMIDE 40 MG TAB PO SCH (08:46)
[2021-07-08] MEDS ORDERED: SODIUM CHLORIDE 0.9% 250 ML IV PRN (12:36)
--- NOTE | 2021-07-08 12:45 | Hospitalist Progress Note ---
Date of Service July 08, 2021 Assessment & Plan (1) Acute heart failure with preserved ejection fraction: (2) Anemia: (3) RUSSELL (dyspnea on exertion): (4) Hypokalemia: Plan: 89-year-old female who has significant past medical history of left breast cancer status post left radical mastectomy, radiation pneumonitis, concerning right upper lobe lesion for possible carcinoma status post empiric radiation, asthmaCOPD, HTN, PAF, anemia who presents to ED secondary to dyspnea on exertion and shortness of breath x2 days. Dyspnea on exertion I believe patient's exertional dyspnea is multifactorial: Acute heart failure with preserved ejection fraction Symptomatic anemia CXR - Cardiomegaly, small left pleural effusion with left basilar consolidation similar to 06/25/21 Likely multifactorial in setting of mild volume overload and possible symptomatic anemia Leg edema resolved Cardiology evaluation appreciated Lasix changed to po at increased dose of 40mg daily Patient has microcytic anemia. Hb was 12-13 two months ago. Has been stable at 8 since admission. Will give 1 PRBC Iron studies show iron deficiency anemia Hemoccult was reported to be negative in ED Eval by GI at OP who recommends continued PPI, feels risk > benefit of scope at this point, normal egd in 2020 Continue iron started on discharge Will get 2 step prior to dc Incentive spirometry Hypokalemia K was 3.3 on presentation Was repleted K is 3.3 today Replete and monitor On po K 10mEq daily due to increased diuretic PAF Rate/rhythm controlled on amiodarone and metoprolol No OAC in setting of Anemia at this point Hypertension Continue losartan and metoprolol Hx of CVA Lacunar infarct 04/2021 On asa Asthma/COPD syndrome Non smoker No acute exac Continue home inhaler Anxiety Recent hospitalization of intentional OD on lorazepam Current denies SI Continue hydroxyzine and ativan hx of L breast ca hx of lung carcinoma s/p XRT hx of radiation pneumonitis DVT ppx: SCD/TEDS, no chemical ppx 2/2 to anemia DNR/DNI DISPO: PCU, pt resides at [facility] PCP: Michael PT/OT eval pror to dc Patient's son called and updated Admission and Anticipated Discharge Date Admission Date: July 06, 2021 Subjective Patient seen and examined Patient reports feeling better but continues to have dyspnea on exertion Had just come in after patient used the bathroom and had conversational dyspnea which resolved after sitting in bed for a few mins Denied chest pain, cough, palpitation Denied any fevers, chills, nausea, vomiting, abd pain, diarrhea Denied dysuria, freq Physical Exam Constitutional: + well hydrated; no acute distress Eyes: PERRL, conjunctivae normal, anicteric sclerae ENMT: external ear and nose normal, oropharynx normal Respiratory: normal respiratory effort; no respiratory distress Diminished breath sounds Cardiovascular: Rate/Rhythm: regular rate and regular rhythm S1 S2 Gastrointestinal (Abdomen): normal bowel sounds, soft, nontender, no hepatosplenomegaly Musculoskeletal: No pedal edema Neurologic: PERRL, EOMI, accommodation nl, no face palsy, no dysarthria Psychiatric: A+Ox3, euthymic affect Results & Data Results & Data ([facility]) Vital Signs (Past 12 Hours) Vital Signs Temp Pulse Pulse Resp BP Pulse Ox 07/08/21 11:12 36.4 C L 67 18 118/59 L 96 07/08/21 08:00 68 07/08/21 07:06 36.7 C 67 16 134/65 97 07/08/21 03:15 36.9 C 72 17 159/66 H 91 Laboratory Results Abnormal lab results 07/07/21 07/08/21 07/08/21 Range/Units 07:11 06:08 06:08 RBC 3.51 L (4.2-5.4) M/uL Hgb 8.3 L (12.0-16.0) g/dL Hct 27.3 L (37-47) % MCV 77.8 L (80-100) fL MCH 23.6 L (25-34) pg MCHC 30.4 L (32-36) g/dL RDW Std Deviation 55.8 H (36.4-46.3) fL RDW Coeff of [place] 19.4 H (11.5-14.5) % Potassium 3.3 L (3.5-5.1) mmol/L Chloride 97 L (98-107) mmol/L BUN 27 H (6-23) mg/dl BUN/Creatinine Ratio 42.9 H (10-20) Unsaturated IBC 393 H (155-355) mcg/dl Crossmatch 07/08/21 Range/Units 13:00 RBC (4.2-5.4) M/uL Hgb (12.0-16.0) g/dL Hct (37-47) % MCV (80-100) fL MCH (25-34) pg MCHC (32-36) g/dL RDW Std Deviation (36.4-46.3) fL RDW Coeff of [place] (11.5-14.5) % Potassium (3.5-5.1) mmol/L Chloride (98-107) mmol/L BUN (6-23) mg/dl BUN/Creatinine Ratio (10-20) Unsaturated IBC (155-355) mcg/dl Crossmatch See Detail (1) Anemia Anemia type: unspecified type Qualified Code(s): D64.9 - Anemia, unspecified
--- NOTE | 2021-07-08 12:49 | Cardiology Progress Note ---
Date of Service July 08, 2021 Assessment & Plan (1) RUSSELL (dyspnea on exertion): (2) Acute heart failure with preserved ejection fraction: (3) Paroxysmal atrial fibrillation: Plan: Patient is an 89-year-old female with recent hospitalization and difficulties as outlined including acute heart failure with preserved ejection fraction, pleural effusion, paroxysmal atrial fibrillation returns now once again with dyspnea on exertion mild volume overload historically. Chest x-ray without pulmonary edema symptoms of edema and dyspnea have improved since hospitalization and IV diuretics Plan: Patient is well compensated this morning. Would continue current medical therapies including daily potassium 10 mg/day, continue previous medications including spironolactone with recent increase in oral furosemide to 40 mg/day. Stable from cardiac standpoint for discharge Admission and Anticipated Discharge Date Admission Date: July 06, 2021 Subjective Patient seen and examined, chart, telemetry reviewed. No complaints overnight. No arrhythmias. Overall feels improved. No edema or exertional shortness of breath. Review of Systems Review of Systems: All systems reviewed & are unremarkable except as noted in Subjective Physical Exam Constitutional: well developed and well nourished Eyes: PERRL, conjunctivae normal, anicteric sclerae ENMT: external ear and nose normal, oropharynx normal Neck: trachea midline, no thyromegaly Respiratory: Auscultation: + diminished lung sounds Cardiovascular: Rate/Rhythm: regular rate and regular rhythm Vessels: no JVD Extremities: no edema Gastrointestinal (Abdomen): normal bowel sounds, soft, nontender, no hepatosplenomegaly Skin: no rashes, warm and dry Psychiatric: A+Ox3, euthymic affect Results & Data ([facility]) Vital Signs (Past 12 Hours) Vital Signs Temp Pulse Pulse Resp BP Pulse Ox 07/08/21 11:12 36.4 C L 67 18 118/59 L 96 07/08/21 08:00 68 07/08/21 07:06 36.7 C 67 16 134/65 97 07/08/21 03:15 36.9 C 72 17 159/66 H 91 Laboratory Results Laboratory Results - last 24 hr 07/07/21 07/08/21 07/08/21 07:11 06:08 06:08 WBC 5.43 RBC 3.51 L Hgb 8.3 L Hct 27.3 L MCV 77.8 L MCH 23.6 L MCHC 30.4 L RDW Std Deviation 55.8 H RDW Coeff of [place] 19.4 H Plt Count 341 MPV 9.7 Sodium 136 Potassium 3.3 L Chloride 97 L Carbon Dioxide 32 Anion Gap 7 BUN 27 H Creatinine 0.63 Est Cr Clr Drug Dosing 51.1 Est GFR ( Amer) 92.2 Est GFR (Non-Af Amer) 79.5 BUN/Creatinine Ratio 42.9 H Glucose 80 Calcium 8.5 Phosphorus 3.5 Magnesium 1.8 Unsaturated IBC 393 H
[2021-07-08] MEDS: MONTELUKAST SODIUM 10 MG TABLET PO SCH (19:30)
[2021-07-09 07:10] LABS: Hematocrit (blood only) 33.9 % (37-47); Hemoglobin 10.4 g/dL (12.0-16.0); Mean Corpuscular Hemoglobin 24.4 pg (25-34); Mean Corpuscular Hgb Conc 30.7 g/dL (32-36); Mean Corpuscular Volume 79.6 fL (80-100); Platelet Count 377 K/uL (130-400); RDW Coefficient of Variation 19.5 % (11.5-14.5); RDW Standard Deviation 56.8 fL (36.4-46.3); Red Blood Count 4.26 M/uL (4.2-5.4); White Blood Count 6.11 K/uL (4.8-10.8)
[2021-07-09 07:43] VITALS: TEMP 97.7
[2021-07-09 07:46] LABS: BUN Creatinine Ratio 33.3 (10-20); Calcium 8.8 mg/dl (8.5-10.1); Creatinine Clr Calc Pharmacy 42.7 ml/min; Est GFR (African American) 81.9 ml/min; Est GFR (Non-African American) 70.7 ml/min
[2021-07-09] MEDS: AMIODARONE 200 MG TAB PO SCH (08:45)
[2021-07-09] MEDS: ASPIRIN 81 MG ECTAB PO SCH (08:45)
[2021-07-09] MEDS: DONEPEZIL HCL 5 MG TAB PO SCH (08:46)
[2021-07-09] MEDS: CALCIUM CARBONATE 1250MG TAB PO SCH (08:46)
[2021-07-09] MEDS: LOSARTAN POTASSIUM 25 MG TAB PO SCH (08:46)
[2021-07-09] MEDS: FUROSEMIDE 40 MG TAB PO SCH (08:46)
[2021-07-09] MEDS: METOPROLOL TARTRATE 25 MG TAB PO SCH (08:47)
[2021-07-09] MEDS: POTASSIUM CHLORIDE 10 MEQ TABCR PO SCH (08:47)
[2021-07-09] MEDS: PANTOprazole 40 MG TAB PO SCH (08:47)
[2021-07-09] MEDS: hydrOXYzine HCl 25 MG TAB PO SCH (08:48)
[2021-07-09] MEDS: UMECLIDINIUM/VILANTEROL 62.5/25MCG 7 PUFFS/INHALER INH SCH (08:48)
[2021-07-09] MEDS: SERTRALINE HCL 100 MG TABLET PO SCH (08:48)
[2021-07-09] MEDS: LORazepam 0.5 MG TAB PO SCH (08:48)
[2021-07-09] MEDS: SPIRONOLACTONE 12.5 MG TAB PO SCH (08:48)
[2021-07-09] MEDS: DOCUSATE SODIUM 100 MG CAP PO SCH (08:55)
[2021-07-09 11:30] VITALS: BP 155/66; O2SAT 97
--- NOTE | 2021-07-09 12:33 | Discharge Summary ---
Date of Service July 09, 2021 Admission HPI Per Admitting Provider This is an 89-year-old female who has significant past medical history of left breast cancer status post left radical mastectomy, radiation pneumonitis, concerning right upper lobe lesion for possible carcinoma status post empiric radiation, asthmaCOPD, HTN, PAF, anemia who presents to ED secondary to dyspnea on exertion and shortness of breath x2 days. Of significance patient was hospitalized 06/24 to 06/29/2021 secondary to acute HFpEF. On admission she was found to have bilateral pleural effusions right greater than left. She underwent thoracentesis on right at 800 mL. It was transudative and negative for malignancy. She also had echocardiogram which revealed EF 65 to 70%, left atrium severely dilated, mild MS, mild TR, moderate MR, severe pulmonary hypertension. During hospitalization she did develop A. fib with RVR for approximately 4 hours. She was treated with IV amiodarone and converted to oral amiodarone. She remained on metoprolol. She was not started on anticoagulant secondary to anemia and bleeding risk. On admission she also had a hemoglobin of 6.6 and required transfusion of PRBC x1 unit. She was seen and evaluated by GI and encouraged to take a PPI. She was also recently seen in the outpatient by gastroenterology and underwent EGD last in 2019 which was unrevealing. Her last colonoscopy was approximately 10 years ago. GI felt the risk of anesthesia risk the benefit of scoping was greater and therefore no current plan to pursue endoscopy at this time. Son is at bedside. He states he notes over the last 2 to 3 days patient has become more short of breath. Patient does have underlying dementia so history is slightly limited and guarded. He states he notices she becomes short of breath after walking 30 to 40 feet. Patient describes this as she is having difficulty walking, but he clarifies and states she can walk well it just that she gets short of breath. She denies shortness of breath at rest but is tachypneic with conversation. She denies any chest pain or associated palpitations, diaphoresis, lightheadedness, dizziness or nausea. She otherwise denies any recent illness, fever, chills, sweats, lightheadedness, dizziness, nausea, vomiting, abdominal pain, change in bowel or urinary habits. She does have a swelling to her lower extremities. She does not weigh herself on a regular basis and they do not weigh herself at the [facility]. She has been taking medications regularly as they provide her with her medications. In ED patient remained hemodynamically stable and was saturating well on room air. She was dyspneic with conversation. Lab work was notable for a microcytic anemia with a hemoglobin stable at 8.2 and hematocrit 27.5. Otherwise her WBC and platelet counts were normal. Her potassium was mildly low at 3.3 and her BU N was elevated at 30 and creatinine 1.91. Her BMP was higher than previous at 829. She was negative for SARS-CoV-2 and influenza. Chest x-ray revealed cardiomegaly with small left pleural effusion and left basilar consolidation. This was similar in appearance to 06/25/2021. No evidence of failure. Admission Exam Per Admitting Provider Constitutional: WD/WN, elderly, F, dyspneic with conversation, vitals as above, NAD, sitting up in bed, pleasant, conversing easily Head: Normocephalic, Atraumatic Eyes: PERRL, conjunctivae normal, anicteric sclerae ENMT: external ear and nose normal, oropharynx normal Neck: trachea midline, no thyromegaly normal visual inspection Respiratory: normal respiratory effort, lungs clear to auscultation, no wheeze, rales, rhonchi. Normal insp/exp effort, no accessory muscle use Cardiovascular: RRR, no murmur, +2 Lower ext edema R > L Vessels: no JVD or carotid bruit Chest: normal inspection of chest Abdomen: normal bowel sounds, soft, nontender, no hepatosplenomegaly Musculoskeletal: no cyanosis or clubbing, [id number] Skin: no rashes, warm and dry normal turgor Neurologic: PERRL, EOMI, accommodation nl, no face palsy, no dysarthria CN's II-XI intact bilaterally and moves all extremities Psychiatric: A+Ox3, euthymic affect Lymphatic: no cervical or axillary lymphadenopathy : deferred Principal Diagnosis Symptomatic anemia Acute heart failure with preserved ejection fraction Discharge Exam Constitutional + well hydrated; no acute distress Eyes PERRL, conjunctivae normal, anicteric sclerae ENMT external ear and nose normal, oropharynx normal Respiratory normal respiratory effort; no respiratory distress Cardiovascular Rate/Rhythm: regular rate and regular rhythm S1 S2 Gastrointestinal (Abdomen) normal bowel sounds, soft, nontender, no hepatosplenomegaly Musculoskeletal No pedal edema Neurologic PERRL, EOMI, accommodation nl, no face palsy, no dysarthria Psychiatric A+Ox3, euthymic affect Discharge Data Allergies Allergy/AdvReac Type Severity Reaction Status Date / Time bee venom protein (honey bee) Allergy Severe ANAPHYLAXIS Verified 07/06/21 15:03 Consultations 07/06/21 16:24 ED Decision to Admit Stat 07/06/21 18:31 Consult Cardiology Routine Hospital Course (1) Acute heart failure with preserved ejection fraction: (2) Anemia: (3) RUSSELL (dyspnea on exertion): (4) Hypokalemia: 89-year-old female who has significant past medical history of left breast cancer status post left radical mastectomy, radiation pneumonitis, concerning right upper lobe lesion for possible carcinoma status post empiric radiation, asthmaCOPD, HTN, PAF, anemia who presents to ED secondary to dyspnea on exertion and shortness of breath x2 days. Dyspnea on exertion I believe patient's exertional dyspnea is multifactorial: Acute heart failure with preserved ejection fraction Symptomatic anemia CXR - Cardiomegaly, small left pleural effusion with left basilar consolidation similar to 06/25/21 Likely multifactorial in setting of mild volume overload and possible symptomatic anemia Leg edema resolved Was evaluated by Cardiology Lasix changed to po at increased dose of 40mg daily Patient has microcytic anemia. Hb was 12-13 two months ago. Has been stable at 8s from admission. Got 1 PRBC. Hb today is 10.4 Iron studies show iron deficiency anemia Hemoccult was reported to be negative in ED Eval by GI at OP who recommends continued PPI, feels risk > benefit of scope at this point, normal egd in 2019 Continue po iron Patient's exertional dyspnea improved remarkably 2 step did not show any oxygen requirement at rest or with activity Hypokalemia K was 3.3 on presentation Was repleted Was started on po K 10mEq daily due to increased diuretic PAF Rate/rhythm controlled on amiodarone and metoprolol No OAC in setting of Anemia at this point Hypertension Continue losartan and metoprolol Hx of CVA Lacunar infarct 04/2021 On aspirin Asthma/COPD syndrome Non smoker No acute exac Continue home inhaler Anxiety Recent hospitalization of intentional OD on lorazepam Current denies SI Continue hydroxyzine and ativan hx of L breast ca hx of lung carcinoma s/p XRT hx of radiation pneumonitis [facility] Total Time Total Time Spent Total Time Spent (In Minutes): 40 Total Time Includes: Examination of the Patient, Discharge Planning, Medication Reconciliation and Communication With Other Providers Discharge Plan Discharge Items [facility] Disposition: [facility] Reason For Visit: SOB,CHF,SYMPTOMATIC ANEMIA Discharge Diagnosis: Symptomatic anemia Acute heart failure with preserved ejection fraction Condition on Discharge: Good Activity: Resume your previous activity Non-emergency contact: Primary Care Provider Call non-emergency contact if: you have any medication questions and your symptoms worsen Follow-up/Referrals: Bear Rodriguez MD [Primary Care Provider] - (Date & Time 07/14/2021 11:00 AM Provider Bear Rodriguez MD Department [facility] ) Yanelis Rojas CRNP [Nurse Practitioner] - (Date & Time 07/12/2021 11:30 AM Provider TEVIN Arreaga Department Cardiology, [facility] ) Diet: Heart Healthy Addtl Attending Provider Instructions: Mrs Arevalo You came to the hospital for increased shortness of breath especially with activity. You were evaluated and managed for symptomatic anemia and acute heart failure. You got 1 unit of blood. You were evaluate by Cardiology. Your lasix (furosemide) was increased to 40mg daily. You were started on potassium supplement. Your amiodarone was reduced to 200mg daily. Your symptoms improved remarkably. You are being discharged back to your [facility]. Please continue following up with your Primary Doctor. It was a pleasure taking care of you. Pending Studies at Discharge: No Stand-Alone Forms: [email or web address], Smoking Cessation Skilled Items Patient informed of condition?: Yes DNR: Yes Discharge Level of Care: Other Communicable Disease: No Discharge Prognosis: Stable Lines: None Urinary Catheter: No Medications and DC Order Prescriptions: New ferrous sulfate 325 mg (65 mg iron) Tablet,Delayed Release (Dr/Ec) 325 mg PO MOWEFR Qty: 30 RF: 0 furosemide 40 mg Tablet 40 mg PO QAM Qty: 30 RF: 0 potassium chloride 10 mEq Tablet,Er Particles/Crystals 10 meq PO DAILY Qty: 30 RF: 0 Continued losartan 25 mg Tablet 25 mg PO QAM RF: 0 aspirin 81 mg Tablet,Delayed Release (Dr/Ec) 81 mg PO QAM RF: 0 Stiolto Respimat 2.5-2.5 mcg/actuation Mist 2 puff INHALATION QAM RF: 0 montelukast 10 mg tablet 10 mg PO HS RF: 0 acetaminophen [Tylenol] 325 mg Tablet 650 mg PO Q4H PRN (Reason: Pain) RF: 0 donepezil 5 mg Tablet 5 mg PO BID RF: 0 lorazepam 0.5 mg Tablet 0.5 mg PO BID RF: 0 docusate sodium [Colace] 100 mg Capsule 100 mg PO BID RF: 0 hydroxyzine HCl 25 mg Tablet 25 mg PO BID RF: 0 calcium carbonate 500 mg calcium (1,250 mg) Tablet,Chewable 500 mg PO BID RF: 0 spironolactone 25 mg Tablet 12.5 mg PO DAILY 30 Days Qty: 15 RF: 0 pantoprazole 40 mg Tablet,Delayed Release (Dr/Ec) 40 mg PO BID 30 Days Qty: 60 RF: 0 metoprolol tartrate 25 mg Tablet 12.5 mg PO BID 30 Days Qty: 30 RF: 0 sertraline 100 mg tablet 100 mg PO QAM RF: 0 Changed amiodarone 200 mg Tablet 200 mg PO DAILY 30 Days Qty: 30 RF: 0 Discontinued furosemide 20 mg Tablet 20 mg PO QAM 30 Days Qty: 30 RF: 0 Discharge Orders: Discharge Order (Routine); Ordered 07/09/21 Ordered By: Page Christianson Admission Data Admit Date/Time: 07/06/21 16:35 Attending Provider: Page Christianson I. Admit Provider: Joon Fry Primary Care Provider: Bear Rodriguez Other Providers: Joon Fry ; Ham Lyons Other Interventions: Discharge Summary Assessment (RN) Last Done: 07/09/21 14:24
[2021-07-09 14:26] VITALS: PULSE 58
[2021-07-09] MEDS: FERROUS SULFATE 325 MG TAB PO SCH (15:24)
--- NOTE | 2021-07-09 15:31 | Cardiology Progress Note ---
Date of Service July 09, 2021 Assessment & Plan (1) RUSSELL (dyspnea on exertion): (2) Acute heart failure with preserved ejection fraction: (3) Paroxysmal atrial fibrillation: Plan: Patient is an 89-year-old female with recent hospitalization and difficulties as outlined including acute heart failure with preserved ejection fraction, pleural effusion, paroxysmal atrial fibrillation returns now once again with dyspnea on exertion mild volume overload historically. Chest x-ray without pulmonary edema symptoms of edema and dyspnea have improved since hospitalization and IV diuretics Plan: Patient is well compensated this morning. Would continue current medical therapies including daily potassium 10 mg/day, continue previous medications including spironolactone with recent increase in oral furosemide to 40 mg/day. Stable from cardiac standpoint for discharge Admission and Anticipated Discharge Date Admission Date: July 06, 2021 Subjective Patient seen and examined, chart, medications, telemetry reviewed. No signs of volume overload or edema. Respiratory status improved. No oxygen requirements after two-step ambulation. No dizziness or lightheadedness. No arrhythmias Review of Systems Review of Systems: All systems reviewed & are unremarkable except as noted in Subjective Physical Exam Constitutional: well developed and well nourished Eyes: PERRL, conjunctivae normal, anicteric sclerae ENMT: external ear and nose normal, oropharynx normal Neck: trachea midline, no thyromegaly Respiratory: Auscultation: + crackles (Minimal left base) Cardiovascular: Rate/Rhythm: regular rate and regular rhythm Vessels: no JVD Extremities: no edema Gastrointestinal (Abdomen): normal bowel sounds, soft, nontender, no hepatosplenomegaly Skin: no rashes, warm and dry Psychiatric: A+Ox3, euthymic affect Results & Data ([facility]) Vital Signs (Past 12 Hours) Vital Signs Temp Pulse Pulse Pulse Pulse Pulse Resp 07/09/21 14:24 36.5 C 58 L 18 07/09/21 11:28 36.5 C 58 L 18 07/09/21 09:40 77 76 68 07/09/21 07:41 36.5 C 63 15 07/09/21 06:45 63 Resp Resp Resp BP Pulse Ox Pulse Ox Pulse Ox 07/09/21 14:24 155/66 H 97 07/09/21 11:28 155/66 H 97 07/09/21 09:40 23 20 16 93 94 07/09/21 07:41 164/74 H 94 07/09/21 06:45 Pulse Ox 07/09/21 14:24 07/09/21 11:28 07/09/21 09:40 95 07/09/21 07:41 07/09/21 06:45 Laboratory Results Laboratory Results - last 24 hr 07/08/21 07/09/21 07/09/21 13:00 06:53 06:53 WBC 6.11 RBC 4.26 Hgb 10.4 L Hct 33.9 L MCV 79.6 L MCH 24.4 L MCHC 30.7 L RDW Std Deviation 56.8 H RDW Coeff of [place] 19.5 H Plt Count 377 MPV 10.0 Sodium 136 Potassium 4.0 D Chloride 99 Carbon Dioxide 30 Anion Gap 7 BUN 25 H Creatinine 0.75 Est Cr Clr Drug Dosing 42.7 Est GFR ( Amer) 81.9 Est GFR (Non-Af Amer) 70.7 BUN/Creatinine Ratio 33.3 H Glucose 86 Calcium 8.8 Crossmatch See Detail
[2021-07-13] MEDS ORDERED: AMIODARONE 200 MG TAB PO SCH (09:00)
== END 2021-07-09 15:30 | disposition home or self-care (01) | DRG 291 ==
LOC: ED 13:51 → SUATTDRO 16:35 → 2S 16:35

== ENCOUNTER 2021-10-02 13:38 | Inpatient (IN) ==
--- NOTE | 2021-10-02 14:20 | Emergency Department Note ---
History of Present Illness General Chief complaint: Fall Stated complaint: FALL,TAILBONE PAIN Time Seen by Provider: 10/02/21 14:01 Source: patient, family (Son who is at the bedside), RN notes reviewed and old records reviewed Mode of arrival: ambulatory Limitations: no limitations History of Present Illness Maximum Pain Intensity: 5 This patient is a 89-year-old female comes in after falling around 4:00 in the [facility]. She lives in a group home. She thought she heard somebody knocking so she got up and she thinks her legs gave out. She lost her balance. She did not have any syncope she not hit her head denies neck pain or headache. She has pain in her low back and also along the ribs. She injured her left elbow as well. No blood or melena in her stool no dysuria hematuria no focal numbness or weakness hurts worse with movement. Looking through her chart she does have a history of significant anemia and her last hemoglobin was checked at 7. She is on iron Home Medications Medication Instructions Recorded Confirmed Type losartan 25 mg tablet 25 mg PO QAM 03/07/18 10/02/21 History aspirin 81 mg tablet,delayed 81 mg PO QAM 04/30/21 10/02/21 History release montelukast 10 mg tablet 10 mg PO HS 04/30/21 10/02/21 History tiotropium 2.5 mcg-olodaterol 2.5 1 puff inhalation QAM 04/30/21 10/02/21 History mcg/actuation mist for inhalation (Stiolto Respimat) acetaminophen 325 mg tablet 650 mg PO Q4H PRN Pain 06/24/21 10/02/21 History (Tylenol) calcium carbonate 500 mg calcium 500 mg PO BID 06/24/21 10/02/21 History (1,250 mg) chewable tablet docusate sodium 100 mg capsule 100 mg PO BID 06/24/21 10/02/21 History (Colace) donepezil 5 mg tablet 5 mg PO BID 06/24/21 10/02/21 History lorazepam 0.5 mg tablet 0.5 mg PO TID 06/24/21 10/02/21 History sertraline 100 mg tablet 150 mg PO QAM 07/06/21 10/02/21 History furosemide 40 mg tablet 40 mg PO QAM #30 tabs 07/09/21 10/02/21 Rx potassium chloride 10 mEq 10 meq PO DAILY #30 tabs 07/09/21 10/02/21 Rx tablet,extended release(part/cryst) benzonatate 100 mg capsule 100 mg PO TID PRN cough #30 caps 09/09/21 10/02/21 Rx amiodarone 200 mg tablet 200 mg PO QAM 10/02/21 10/02/21 History cetirizine 10 mg tablet (Zyrtec) 10 mg PO QAM 10/02/21 10/02/21 History metoprolol tartrate 25 mg tablet 12.5 mg PO BID 10/02/21 10/02/21 History pantoprazole 40 mg tablet,delayed 40 mg PO BID 10/02/21 10/02/21 History release spironolactone 25 mg tablet 12.5 mg PO QAM 10/02/21 10/02/21 History Allergies Allergy/AdvReac Type Severity Reaction Status Date / Time bee venom protein (honey bee) Allergy Severe ANAPHYLAXIS Verified 10/02/21 17:08 Past Med/Surg History Medical History (Updated 10/02/21 @ 22:33 by Yomi Molina MD) Abnormal CT of the chest Anemia of chronic disease Anxiety Anxiety Asthma USING RESCUE INHALER FREQUENTLY/DAILY Asthma-COPD overlap syndrome Cancer BREAST CANCER-LEFT MASTECTOMY Chronic obstructive pulmonary disease COPD (chronic obstructive pulmonary disease) Deep vein thrombosis 15 YEARS AGO S/P LEG SURGERY Dysphagia HX ESOPHAGEAL STRETCHING Fall GERD (gastroesophageal reflux disease) History of pulmonary embolism HTN (hypertension) Hypertension Osteoarthritis PAF (paroxysmal atrial fibrillation) Prolapsed bladder Pulmonary nodule, right Rectal bleeding Senile degeneration of brain Surgical History History of cataract surgery RT/LEFT History of colonoscopy History of esophagogastroduodenoscopy (EGD) History of mastectomy LEFT (NO BP/LAB DRAWS) History of tonsillectomy History of tooth extraction History of total hysterectomy with bilateral salpingo-oophorectomy (BSO) History of total knee replacement LEFT/RT Family History Other Family history non-contributory Social History Smoking Status: Never smoker Second Hand Exposure: No; Hx Alcohol Use: No Hx Substance Use: No Preferred Language: Kinyarwanda Communication Ability: Effective 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 Specialist Required: No Beliefs That Will Affect Care: Syn[employer] marital status: Current Living Situation: Personal Care Facility Feels Safe at Home: Yes Childhood Exposure to Second-Hand Smoke: Yes Dental Care, Regularly: Yes Assistive Devices: Walker Review of Systems A total of 10 systems reviewed and were otherwise negative Physical Exam Vital Signs Vital Signs - 24 hr 10/02/21 13:41 10/02/21 13:54 10/02/21 15:38 Temperature 36.8 C Temperature Source Temporal Artery Scan Pulse Rate 68 Pulse Rate [Finger] 69 74 Respiratory Rate 16 19 20 Respiratory Effort / Characteristics Non-Labored Spontaneous Non-Labored Spontaneous Respiratory Depth Normal Normal Blood Pressure 116/49 L Blood Pressure [Right Arm] 119/53 L 143/76 H Blood Pressure Mean 71 Blood Pressure Mean [Right Arm] 75 98 Pulse Oximetry 95 95 94 Oxygen Delivery Method Room Air Room Air Room Air Sepsis Recent Fever Within 48 Hours No Sepsis New/Unexplained Change in Mental Status No Sepsis Action Taken by Nursing No Action Required 10/02/21 16:26 10/02/21 17:30 Temperature Temperature Source Pulse Rate Pulse Rate [Finger] 74 Respiratory Rate 18 Respiratory Effort / Characteristics Respiratory Depth Blood Pressure Blood Pressure [Right Arm] 129/71 Blood Pressure Mean Blood Pressure Mean [Right Arm] 90 Pulse Oximetry 95 94 Oxygen Delivery Method Room Air Sepsis Recent Fever Within 48 Hours Sepsis New/Unexplained Change in Mental Status Sepsis Action Taken by Nursing General: Well developed well nourished older female who appears in no acute distress, breathing comfortably on room air. Normal speech HEENT: Normal cephalic atraumatic. Pupils are equal round and reactive to light. Extraocular movements are intact. Oropharynx is pink with moist mucous membranes. No swelling of the mouth lips or tongue. Neck: Supple with a midline trachea. No meningeal signs or stiffness, no JVD or bruits. No Stridor. Chest: Clear to auscultation bilaterally. No wheezes or rhonchi. No increased work of breathing. Heart: Regular rate and rhythm without murmurs or gallops. Abdomen: Soft nontender, nondistended without rebound guarding or rigidity. Extremities: No cyanosis clubbing or edema. No calf tenderness or assymetry. Abrasions to left elbow Spine/Back. Mildly tender to palpation upper lumbar area. No CVA tenderness Skin: Good turgor without rashes. Neurologic exam: Cranial nerves two through 12 are intact. Motor and sensation are intact and symmetrical throughout. Course Administered Medications Calcium Carbonate (Calcium Carbonate 1250mg Tab) 1,250 mg PO BID MARILIA Stop: 11/01/21 20:59 Last Admin: 10/02/21 21:44 Dose: 1,250 mg Documented By: ESG Docusate Sodium (Docusate Sodium 100 Mg Cap) 100 mg PO BID MARILIA Stop: 11/01/21 20:59 Last Admin: 10/02/21 21:31 Dose: 100 mg Documented By: ESG Donepezil HCl (Donepezil Hcl 5 Mg Tab) 5 mg PO BID MARILIA Stop: 11/01/21 20:59 Last Admin: 10/02/21 21:32 Dose: 5 mg Documented By: ESG Heparin Sodium (Porcine) (Heparin Sod 5,000 Unit/0.5 Ml Vial) 5,000 units SQ Q8 MARILIA Stop: 11/01/21 21:59 Last Admin: 10/02/21 21:49 Dose: 5,000 units Documented By: ESG Lidocaine (Lidocaine 5% 1 Patch) 1 patch TD HS MARILIA Stop: 11/01/21 21:14 Last Admin: 10/02/21 21:44 Dose: 1 patch Documented By: ARMEN Lorazepam (Lorazepam 0.5 Mg Tab) 0.5 mg PO TID@0630,1500,2000 MARILIA Stop: 11/01/21 20:59 Last Admin: 10/02/21 21:31 Dose: 0.5 mg Documented By: ARMEN Metoprolol Tartrate (Metoprolol Tartrate 25 Mg Tab) 12.5 mg PO BID MARILIA Stop: 11/01/21 20:59 Last Admin: 10/02/21 21:32 Dose: 12.5 mg Documented By: ESG Montelukast Sodium (Montelukast Sodium 10 Mg Tablet) 10 mg PO HS MARILIA Stop: 11/01/21 20:59 Last Admin: 10/02/21 21:32 Dose: 10 mg Documented By: ARMEN Pantoprazole Sodium (Pantoprazole 40 Mg Tab) 40 mg PO BID MARILIA Stop: 11/01/21 20:59 Last Admin: 10/02/21 21:32 Dose: 40 mg Documented By: ESG Discontinued Medications Ioversol (Optiray 320 100ml) 95 ml IV ONCE ONE Stop: 10/02/21 16:19 Last Admin: 10/02/21 16:18 Dose: 95 ml Documented By: RICARDOK Potassium Chloride (Potassium Chloride Crtab 20 Meq Tabcr) 40 meq PO NOW STA Stop: 10/02/21 20:56 Last Admin: 10/02/21 21:31 Dose: 40 meq Documented By: REBEKAG Medical Decision Making Differential Diagnosis Fall, traumatic injuries, internal bleeding, spinal injuries, anemia, cardiac disease, arrhythmia, electrolyte or metabolic abnormality Medical Records Attestation: I reviewed the patient's medical records. Home Medications Current Medication List: was personally reviewed by me Laboratory Data Attestation: I reviewed the patient's lab results. Result diagrams: 10/02/21 15:12 10/02/21 15:12 Lab Results 10/02/21 10/02/21 10/02/21 Range/Units 15:12 15:12 16:50 WBC 6.91 (4.8-10.8) K/ul RBC 3.39 L (3.93-5.22) M/uL Hgb 8.0 L (12.0-16.0) g/dl Hct 27.2 L (34.1-44.9) % MCV 80.2 (80.0-100.0) fL MCH 23.6 L (25.0-34.0) pg MCHC 29.4 L (32.0-36.0) g/dL RDW Std Deviation 48.4 H (36.4-46.3) fL RDW Coeff of [place] 17.0 H (11.5-14.5) % Plt Count 265 (130-400) K/uL MPV 9.3 L (9.4-12.3) fL Immature Gran % (Auto) 0.4 % Neut % (Auto) 81.7 % Lymph % (Auto) 6.5 % [place] % (Auto) 10.1 % Eos % (Auto) 0.7 % Baso % (Auto) 0.6 % Neut # (Auto) 5.64 (1.4-6.5) K/uL Lymph # (Auto) 0.45 L (1.2-3.4) K/uL [place] # (Auto) 0.70 (0.24-0.82) K/uL Eos # (Auto) 0.05 (0-0.50) K/uL Baso # (Auto) 0.04 (0-0.2) K/uL Immature Gran # (Auto) 0.03 H (0.00-0.02) K/uL Sodium 137 (136-145) mmol/L Potassium 3.1 L (3.5-5.1) mmol/L Chloride 100 (98-107) mmol/L Carbon Dioxide 30 (21-32) mmol/L Anion Gap 7 (3-11) BUN 22 (6-23) mg/dl Creatinine 0.94 (0.6-1.2) mg/dl Est Cr Clr Drug Dosing 35.5 ml/min Est GFR ( Amer) 62.3 ml/min Est GFR (Non-Af Amer) 53.8 ml/min BUN/Creatinine Ratio 23.4 H (10-20) Glucose 116 H (70-99(Fasting)) mg/dl Calcium 8.1 L (8.5-10.1) mg/dl Total Bilirubin 0.5 (0.2-1.0) mg/dl AST 21 (13-39) U/L ALT 16 (7-52) U/L Alkaline Phosphatase 44 (34-104) U/L Troponin I High Sens 13.7 (0-14) pg/ml Total Protein 5.9 L (6.0-8.3) gm/dl Albumin 3.7 (3.4-5.0) gm/dl Globulin 2.2 L (2.5-4.0) gm/dl Albumin/Globulin Ratio 1.7 (0.9-2) Lipase 61 (11-82) U/L SARS-CoV-2, RNA, NAAT NEGATIVE (NEGATIVE) Imaging Data Attestation: I personally reviewed and interpreted this imaging study as follows: Radiologist's Impression: Abdomen/Pelvis CT 10/02/21 14:[address] WITH CONTRAST, ABDOMEN AND PELVIS CT WITH INTRAVENOUS CONTRAST CT DOSE: 501.07 mGy.cm HISTORY: fall, rib pain, back pain TECHNIQUE: Multiaxial CT images of the chest, abdomen, and pelvis were performed following the intravenous administration of contrast. A dose lowering technique was utilized adhering to the principles of ALARA. COMPARISON: Chest CTA 05/03/2021. Abdomen and pelvis CT 09/19/2011. FINDINGS: Chest CT: There is an old mild superior endplate compression deformity at T1, unchanged. There is an acute mild superior endplate compression fracture at T11 with 4 mm of retropulsion and mild central canal narrowing. There is mild paravertebral edema at this location due to the acute fracture. There are healing left anterior fourth and fifth rib fractures. No pneumothorax. The central airways are patent. Small to moderate bilateral pleural effusions, left greater than right. Bilateral lower lobe consolidation favors compressive atelectasis from the pleural effusions. Calcified granulomas within the left lung apex. The heart is mildly enlarged. There are dense mitral annulus calcifications. No pericardial effusion. Normal esophagus. The thyroid gland enhances normally. No mediastinal hematoma or lymphadenopathy. No evidence for an aortic dissection. The central pulmonary arteries appear patent. Prior left mastectomy. Progressive consolidation identified within the wedge-shaped density within the right lung apex. Abdomen/pelvis CT: No pneumoperitoneum. No pneumatosis. There is an acute nondisplaced fracture at the lower sacrum at the S4 level. There is an old mild superior endplate compression deformity at L5. Degenerative changes noted within the lumbar spine. There are few punctate calcified granulomas within the liver a nd spleen. Small amount of sludge within the gallbladder. No gallbladder wall thickening. The pancreas and right adrenal gland are unremarkable. Mild nodular thickening of the left adrenal gland with adjacent fat stranding. This measures 1.4 cm. This could represent an adrenal nodule or trace adrenal hemorrhage. A few bilateral renal hypodense lesions which favor cysts. The main portal vein is patent. No retroperitoneal lymphadenopathy. Prior hysterectomy. Mild pelvic floor collapse. No pelvic free fluid. No bowel wall thickening or obstruction. Normal appendix. There appears to be a 7 mm soft tissue nodule within the anterior wall of the bladder on image 329. IMPRESSION: 1. An acute mild superior endplate compression fracture at T11 with 4 mm of retropulsion mild central canal narrowing. 2. An acute nondisplaced sacral fracture at the S4 level. 3. Nodular thickening of the left adrenal gland with adjacent fat stranding. This measures 1.4 cm and could represent an adrenal nodule or trace adrenal hemorrhage. 4. A 7 mm soft tissue nodule within the anterior wall of the bladder. Follow-up urology consultation recommended to exclude the possibility of a bladder lesion. 5. Small to moderate bilateral pleural effusions, left greater than right. 6. Healing left anterior fourth and fifth rib fractures. No pneumothorax. 7. Additional findings as described above. ACT 112: Negative or not required by law. Electronically signed by: Eulalio Pinon M.D. 10/02/2021 4:[address] 10/02/21 14:[address] WITH CONTRAST, ABDOMEN AND PELVIS CT WITH INTRAVENOUS CONTRAST CT DOSE: 501.07 mGy.cm HISTORY: fall, rib pain, back pain TECHNIQUE: Multiaxial CT images of the chest, abdomen, and pelvis were performed following the intravenous administration of contrast. A dose lowering technique was utilized adhering to the principles of ALARA. COMPARISON: Chest CTA 05/03/2021. Abdomen and pelvis CT 09/19/2011. FINDINGS: Chest CT: There is an old mild superior endplate compression deformity at T1, unchanged. There is an acute mild superior endplate compression fracture at T11 with 4 mm of retropulsion and mild central canal narrowing. There is mild paravertebral edema at this location due to the acute fracture. There are healing left anterior fourth and fifth rib fractures. No pneumothorax. The central airways are patent. Small to moderate bilateral pleural effusions, left greater than right. Bilateral lower lobe consolidation favors compressive atelectasis from the pleural effusions. Calcified granulomas within the left lung apex. The heart is mildly enlarged. There are dense mitral annulus calcifications. No pericardial effusion. Normal esophagus. The thyroid gland enhances normally. No mediastinal hematoma or lymphadenopathy. No evidence for an aortic dissection. The central pulmonary arteries appear patent. Prior left mastectomy. Progressive consolidation identified within the wedge-shaped density within the right lung apex. Abdomen/pelvis CT: No pneumoperitoneum. No pneumatosis. There is an acute no ndisplaced fracture at the lower sacrum at the S4 level. There is an old mild superior endplate compression deformity at L5. Degenerative changes noted within the lumbar spine. There are few punctate calcified granulomas within the liver and spleen. Small amount of sludge within the gallbladder. No gallbladder wall thickening. The pancreas and right adrenal gland are unremarkable. Mild nodular thickening of the left adrenal gland with adjacent fat stranding. This measures 1.4 cm. This could represent an adrenal nodule or trace adrenal hemorrhage. A few bilateral renal hypodense lesions which favor cysts. The main portal vein is patent. No retroperitoneal lymphadenopathy. Prior hysterectomy. Mild pelvic floor collapse. No pelvic free fluid. No bowel wall thickening or obstruction. Normal appendix. There appears to be a 7 mm soft tissue nodule within the anterior wall of the bladder on image 329. IMPRESSION: 1. An acute mild superior endplate compression fracture at T11 with 4 mm of retropulsion mild central canal narrowing. 2. An acute nondisplaced sacral fracture at the S4 level. 3. Nodular thickening of the left adrenal gland with adjacent fat stranding. This measures 1.4 cm and could represent an adrenal nodule or trace adrenal hemorrhage. 4. A 7 mm soft tissue nodule within the anterior wall of the bladder. Follow-up urology consultation recommended to exclude the possibility of a bladder lesion. 5. Small to moderate bilateral pleural effusions, left greater than right. 6. Healing left anterior fourth and fifth rib fractures. No pneumothorax. 7. Additional findings as described above. ACT 112: Negative or not required by law. Electronically signed by: Eulalio Pinon M.D. 10/02/2021 4:[address] 10/02/21 14:15 CT lumbar spine w con HISTORY: fall, back pain TECHNIQUE: Multiaxial CT images of the lumbar spine were performed and reformatted in the sagittal and coronal plane following the intravenous administration of contrast. COMPARISON STUDY: Lumbar spine 09/19/2011. FINDINGS: There is an old mild superior endplate compression deformity at L5 which demonstrates 5 mm of retropulsion of the posterior superior corner resulting in moderate central canal narrowing at this level. No acute fracture or subluxation within the lumbar spine. Moderate to severe facet degenerative changes within the lumbar spine. There is moderate disc space narrowing at L3-L4 and L4-5. Mild disc space narrowing at L5-S1. There is 5 mm of anterolisthesis of L3 on L4. In conjunction with the severe facet hypertrophy this results in severe central canal narrowing at this level. IMPRESSION: 1. No acute fractures within the lumbar spine. 2. Degenerative changes as described above with severe central canal narrowing at L3-L4. 3. There is an old mild superior endplate compression deformity at L5. ACT 112: Negative or not required by law. Electronically signed by: Eulalio Pinon M.D. 10/02/2021 4:42 PM Elbow X-Ray 10/02/21 14:20 XR elbow LT min 3V routine CLINICAL HISTORY: fall. Left elbow pain. COMPARISON STUDY: None. FINDINGS: Mild posterior soft tissue irregularity. No fracture or dislocation within the left elbow. No elbow effusion. No radiopaque foreign bodies. 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 IMPRESSION: No fracture or dislocation within the left elbow. ACT 112: Negative or not required by law. Electronically signed by: Eulalio Pinon M.D. 10/02/2021 3:19 PM ECG Data Attestation: I personally reviewed and interpreted this ECG as follows: Indication: + weakness Rate (beats per minute): 74 Rhythm: + normal sinus ECG Intervals/blocks: + Normal QRS, + Normal QT and + Normal [place] ECG [place]: + Normal ECG ST segments: + Normal ST segments ECG Findings: no PACs or no PVCs Comparison ECG Date: from (07/06/21) Change: no significant change MDM Narrative This patient comes in as described above. She was placed on a hospital monitor room C9. She is here for treatment and evaluation of fall. She has had low back pain and rib pain. She has some chronic ongoing issues particularly anemia. In light of this I also did do EKG and multiple other blood testing. She was reassessed frequently. Her hemoglobin is 8 which is actually improved from the last 1. She has nothing to suggest infection. She is no acute neurologic deficits. CAT scan showed old healed rib fracture she does have a T11 compression fracture is a small amount of retropulsion but clinically. she has no neurologic deficits. She has a sacral fracture. I do think she needs to be admitted for further treatment evaluation. [facility]. Continuous cardiac monitoring: Orders placed in EMR for continuous cardiac monitoring. Upon my interpretation the patient was noted to be in normal sinus rhythm rate of 6 Impression & Plan Fracture of thoracic spine, Fall, Back pain, Closed sacral fracture Discharge Plan Visit Data Chief Complaint: Fall Stated Complaint: FALL,TAILBONE PAIN ED Provider: Yomi Molina Discharge Problem: Fracture of thoracic spine, Fall, Back pain, Closed sacral fracture Patient Disposition: Admitted As Inpatient Discharge Instructions Interventions: ED Discharge Assessment Last Done: 10/02/21 20:00 : Fracture of thoracic spine Qualifiers: Encounter type: initial encounter Thoracic vertebra fracture level: T11 Fracture type: closed Fracture morphology: unspecified fracture morphology Qualified Code(s): S22.089A - Unspecified fracture of T11-T12 vertebra, initial encounter for closed fracture Fall Qualifiers: Encounter type: initial encounter Qualified Code(s): W19.XXXA - Unspecified fall, initial encounter Back pain Qualifiers: Back pain location: thoracic back pain Chronicity: acute Back pain laterality: midline Qualified Code(s): M54.6 - Pain in thoracic spine
--- NOTE | 2021-10-02 15:21 | XRay Report ---
XR elbow LT min 3V routine CLINICAL HISTORY: fall. Left elbow pain. COMPARISON STUDY: None. FINDINGS: Mild posterior soft tissue irregularity. No fracture or dislocation within the left elbow. No elbow effusion. No radiopaque foreign bodies. Degenerative changes and chondrocalcinosis within th e left elbow joint. IMPRESSION: No fracture or dislocation within the left elbow. ACT 112: Negative or not required by law. Electronically signed by: Eulalio Pinon M.D. 10/02/2021 3:19 PM
[2021-10-02 15:23] LABS: Basophils # (auto) 0.04 K/uL (0-0.2); Basophils % (auto) 0.6 %; Eosinophils # (auto) 0.05 K/uL (0-0.50); Eosinophils % (auto) 0.7 %; Hematocrit (blood only) 27.2 % (34.1-44.9); Immature Granulocytes # (auto) 0.03 K/uL (0.00-0.02); Immature Granulocytes % (auto) 0.4 %; Lymphocytes # (auto) 0.45 K/uL (1.2-3.4); Lymphocytes % (auto) 6.5 %; Mean Corpuscular Hemoglobin 23.6 pg (25.0-34.0); Mean Corpuscular Hgb Conc 29.4 g/dL (32.0-36.0); Mean Corpuscular Volume 80.2 fL (80.0-100.0); Mean Platelet Volume 9.3 fL (9.4-12.3); Monocytes % (auto) 10.1 %; Neutrophils # (auto) 5.64 K/uL (1.4-6.5); Neutrophils % (auto) 81.7 %; Platelet Count 265 K/uL (130-400); RDW Standard Deviation 48.4 fL (36.4-46.3); Red Blood Count 3.39 M/uL (3.93-5.22); White Blood Count 6.91 K/ul (4.8-10.8)
[2021-10-02 15:50] LABS: Troponin I High Sensitivity 13.7 pg/ml (0-14)
[2021-10-02 15:56] LABS: Albumin Globulin Ratio 1.7 (0.9-2); Albumin Level 3.7 gm/dl (3.4-5.0); BUN Creatinine Ratio 23.4 (10-20); Bilirubin,Total 0.5 mg/dl (0.2-1.0); Calcium 8.1 mg/dl (8.5-10.1); Creatinine Clr Calc Pharmacy 35.5 ml/min; Est GFR (African American) 62.3 ml/min; Est GFR (Non-African American) 53.8 ml/min; Globulin 2.2 gm/dl (2.5-4.0); Potassium 3.1 mmol/L (3.5-5.1); Total Protein 5.9 gm/dl (6.0-8.3)
[2021-10-02] MEDS ORDERED: OPTIRAY 320 100ml IV ONE (16:18)
--- NOTE | 2021-10-02 16:40 | CT Scan Report ---
CHEST CT WITH CONTRAST, ABDOMEN AND PELVIS CT WITH INTRAVENOUS CONTRAST CT DOSE: 501.07 mGy.cm HISTORY: fall, rib pain, back pain TECHNIQUE: Multiaxial CT images of the chest, abdomen, and pelvis were performed following the intrav enous administration of contrast. A dose lowering technique was utilized adhering to the principles of ALARA. COMPARISON: Chest CTA 05/03/2021. Abdomen and pelvis CT 09/19/2011. FINDINGS: Chest CT: There is an old mild superior endplate compression deformity at T1, unchanged. There is an acute mild superior endplate compression fracture at T11 with 4 mm of retropulsion and mild central c anal narrowing. There is mild paravertebral edema at this location due to the acute fracture. There a re healing left anterior fourth and fifth rib fractures. No pneumothorax. The central airways are pat ent. Small to moderate bilateral pleural effusions, left greater than right. Bilateral lower lobe con solidation favors compressive atelectasis from the pleural effusions. Calcified granulomas within the left lung apex. The heart is mildly enlarged. There are dense mitral annulus calcifications. No jacey cardial effusion. Normal esophagus. The thyroid gland enhances normally. No mediastinal hematoma or l ymphadenopathy. No evidence for an aortic dissection. The central pulmonary arteries appear patent. P rior left mastectomy. Progressive consolidation identified within the wedge-shaped density within the right lung apex. Abdomen/pelvis CT: No pneumoperitoneum. No pneumatosis. There is an acute nondisplaced fracture at th e lower sacrum at the S4 level. There is an old mild superior endplate compression deformity at L5. D egenerative changes noted within the lumbar spine. There are few punctate calcified granulomas within the liver and spleen. Small amount of sludge within the gallbladder. No gallbladder wall thickening. The pancreas and right adrenal gland are unremarkable. Mild nodular thickening of the left adrenal g land with adjacent fat stranding. This measures 1.4 cm. This could represent an adrenal nodule or tra ce adrenal hemorrhage. A few bilateral renal hypodense lesions which favor cysts. The main portal vei n is patent. No retroperitoneal lymphadenopathy. Prior hysterectomy. Mild pelvic floor collapse. No p elvic free fluid. No bowel wall thickening or obstruction. Normal appendix. There appears to be a 7 m m soft tissue nodule within the anterior wall of the bladder on image 329. IMPRESSION: 1. An acute mild superior endplate compression fracture at T11 with 4 mm of retropulsion mild central canal narrowing. 2. An acute nondisplaced sacral fracture at the S4 level. 3. Nodular thickening of the left adrenal gland with adjacent fat stranding. This measures 1.4 cm and could represent an adrenal nodule or trace adrenal hemorrhage. 4. A 7 mm soft tissue nodule within the anterior wall of the bladder. Follow-up urology consultation recommended to exclude the possibility of a bladder lesion. 5. Small to moderate bilateral pleural effusions, left greater than right. 6. Healing left anterior fourth and fifth rib fractures. No pneumothorax. 7. Additional findings as described above. ACT 112: Negative or not required by law. Electronically signed by: Eulalio Pinon M.D. 10/02/2021 4:38 PM
--- NOTE | 2021-10-02 16:44 | CT Scan Report ---
CT lumbar spine w con HISTORY: fall, back pain TECHNIQUE: Multiaxial CT images of the lumbar spine were performed and reformatted in the sagittal an d coronal plane following the intravenous administration of contrast. COMPARISON STUDY: Lumbar spine 09/19/2011. FINDINGS: There is an old mild superior endplate compression deformity at L5 which demonstrates 5 mm of retropulsion of the posterior superior corner resulting in moderate central canal narrowing at thi s level. No acute fracture or subluxation within the lumbar spine. Moderate to severe facet degenerat kd changes within the lumbar spine. There is moderate disc space narrowing at L3-L4 and L4-5. Mild d isc space narrowing at L5-S1. There is 5 mm of anterolisthesis of L3 on L4. In conjunction with the s evere facet hypertrophy this results in severe central canal narrowing at this level. IMPRESSION: 1. No acute fractures within the lumbar spine. 2. Degenerative changes as described above with severe central canal narrowing at L3-L4. 3. There is an old mild superior endplate compression deformity at L5. ACT 112: Negative or not required by law. Electronically signed by: Eulalio Pinon M.D. 10/02/2021 4:42 PM
--- NOTE | 2021-10-02 17:25 | History & Physical Report ---
Date of Service October 02, 2021 Assessment & Plan (1) Fall: Plan: Degenerative Disc Disease: -s/p getting up out of her bed in the middle of the night as she thought someone was knocking on her door. -No neurodeficits noted -X-ray obtained with results indicating an acute mild superior endplate compression fracture at T11 with 4 mm of retropulsion mild central canal narrowing, an acute nondisplaced sacral fracture at the S4 level. -She is not on any bisphosphonates; will add Ca+/VitaminD -Last Dexa 2017; did show some worsening in the left hip area although the low lumbar area remained unchanged. -Pt was on Alendronate prior and it was stopped by PCP to avoid increased fragility syndrome. -Orthopedics consultation placed. -Resume diet if no intervention (2) Hypokalemia: Plan: K+ 3.1 on admission. Will replace with Potassium 40mEq PO once now and recheck in AM. Pt takes KCL 10mEq PO daily; increased to 20. No ectopy or arrhythmia. IV repletion if no improved response Consider reassessing her home diuretics as her hospital course progresses. She's on oral K+, Aldactone, and Lasix. (3) Cancer: Plan: s/p left mastectomy hx of L breast ca hx of lung carcinoma s/p XRT hx of radiation pneumonitis Follow-up urology consultation recommended to exclude the possibility of a bladder lesion. Recommend outpatient Urology follow up. . (4) Acute heart failure with preserved ejection fraction: Plan: no LE swelling Recent admission with acute on chronic CHF Hgb 8.0; consider transfusion should patient become symptomatic. Continue PO Lasix Continue metoprolol and Aldactone Recent echocardiogram during last admission reviewed; EF 65 to 70%, left atrium severely dilated, mild MS, mild TR, moderate MR, severe pulmonary hypertension monitor on tele. (5) Anemia of chronic disease: Plan: Unspecified, microcytic Hemoccult ordered. Pt denies any nasima red or black/tarry stools. 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 Had a thoracentesis for large pleural effusion in June; 700 ml removed, non malignant. No acute exacerbation. (12) Chronic heart failure with preserved ejection fraction: Plan: no LE swelling Recent admission with acute on chronic CHF Hgb 8.0; consider transfusion should patient become symptomatic. Continue PO Lasix Continue metoprolol and Aldactone Recent echocardiogram during last admission reviewed monitor on tele. Plan Dispo: Code: DNR/DNI PCP: Dr. Sun Plan to return to [facility] History of Present Illness Chief Complaint: s/p fall Primary Care Provider: [facility] This patient is a 89 y/o female who presented from [facility] s/p fall this AM. comes in after falling around 4:00 in the morning.No syncope noted; claims to have lost her balance, but denies hitting her head. She complained of rib painhe injured her left elbow as well. No blood or melena in her stool no dysuria hematuria no focal numbness or weakness hurts worse with movement. Looking through her chart she does have a history of significant anemia and her last hemoglobin was checked at 7, but is now 8.She has a significant past medical history of left breast cancer status post left radical mastectomy, radiation pneumonitis, concerning right upper lobe lesion for possible carcinoma status post empiric radiation, asthmaCOPD, HTN, PAF, and anemia. Of significance patient was hospitalized 06/24 to 06/29/2021, and most recently 07/06- 07/09 for SOB and secondary to acute HFpEF. She underwent thoracentesis on right at 800 mL. It was transudative and negative for malignancy. During hospitalization she did develop A. fib with RVR for approximately 4 hours.She was not started on anticoagulant secondary to anemia and bleeding risk. Pt has senile degeneration of the brain and is able to communicate, but is a poor historian overall. She does deny SOB, MILNER, dizziness, abdominal pain, cp, palpitations, bowel changes, appetite changes. Patient will be admitted under hospitalist service for further management. Allergies Allergy/AdvReac Type Severity Reaction Status Date / Time bee venom protein (honey bee) Allergy Severe ANAPHYLAXIS Verified 10/02/21 17:08 Home Medications Medication Instructions Recorded Confirmed Type losartan 25 mg tablet 25 mg PO QAM 03/07/18 10/02/21 History aspirin 81 mg tablet,delayed 81 mg PO QAM 04/30/21 10/02/21 History release montelukast 10 mg tablet 10 mg PO HS 04/30/21 10/02/21 History tiotropium 2.5 mcg-olodaterol 2.5 1 puff inhalation QA 04/30/21 10/02/21 History mcg/actuation mist for inhalation (Stiolto Respimat) acetaminophen 325 mg tablet 650 mg PO Q4H PRN Pain 06/24/21 10/02/21 History (Tylenol) calcium carbonate 500 mg calcium 500 mg PO BID 06/24/21 10/02/21 History (1,250 mg) chewable tablet docusate sodium 100 mg capsule 100 mg PO BID 06/24/21 10/02/21 History (Colace) donepezil 5 mg tablet 5 mg PO BID 06/24/21 10/02/21 History lorazepam 0.5 mg tablet 0.5 mg PO TID 06/24/21 10/02/21 History sertraline 100 mg tablet 150 mg PO QAM 07/06/21 10/02/21 History furosemide 40 mg tablet 40 mg PO QAM #30 tabs 07/09/21 10/02/21 Rx potassium chloride 10 mEq 10 meq PO DAILY #30 tabs 07/09/21 10/02/21 Rx tablet,extended release(part/cryst) benzonatate 100 mg capsule 100 mg PO TID PRN cough #30 caps 09/09/21 10/02/21 Rx amiodarone 200 mg tablet 200 mg PO QAM 10/02/21 10/02/21 History cetirizine 10 mg tablet (Zyrtec) 10 mg PO QAM 10/02/21 10/02/21 History metoprolol tartrate 25 mg tablet 12.5 mg PO BID 10/02/21 10/02/21 History pantoprazole 40 mg tablet,delayed 40 mg PO BID 10/02/21 10/02/21 History release spironolactone 25 mg tablet 12.5 mg PO QAM 10/02/21 10/02/21 History Past Med/Surg History Medical History (Updated 10/02/21 @ 19:14 by TEVIN Winchester) Abnormal CT of the chest Anemia of chronic disease Anxiety Anxiety Asthma USING RESCUE INHALER FREQUENTLY/DAILY Asthma-COPD overlap syndrome Cancer BREAST CANCER-LEFT MASTECTOMY Chronic obstructive pulmonary disease COPD (chronic obstructive pulmonary disease) Deep vein thrombosis 15 YEARS AGO S/P LEG SURGERY Dysphagia HX ESOPHAGEAL STRETCHING Fall GERD (gastroesophageal reflux disease) History of pulmonary embolism HTN (hypertension) Hypertension Osteoarthritis PAF (paroxysmal atrial fibrillation) Prolapsed bladder Pulmonary nodule, right Rectal bleeding Senile degeneration of brain Surgical History History of cataract surgery RT/LEFT History of colonoscopy History of esophagogastroduodenoscopy (EGD) History of mastectomy LEFT (NO BP/LAB DRAWS) History of tonsillectomy History of tooth extraction History of total hysterectomy with bilateral salpingo-oophorectomy (BSO) History of total knee replacement LEFT/RT Family History Other Family history non-contributory Social History Smoking Status: Never smoker Second Hand Exposure: No; Hx Alcohol Use: No Hx Substance Use: No Preferred Language: Turkmen 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 Beliefs That Will Affect Care: Yarsanism marital status: Current Living Situation: Personal Care Facility Feels Safe at Home: Yes Childhood Exposure to Second-Hand Smoke: Yes Dental Care, Regularly: Yes Assistive Devices: Walker Review of Systems Review of Systems: Neuro: (+) Falls, (+) trauma, (-) slurred speech HEENT: (-) MILNER, dizziness, dysphagia, visual or auditory changes CV: (-) CP, palpitations, swelling Resp: (-) SOB GI: (-) appetite changes, N/V/D, bowel changes (-) black or tarry stools : (-) urinary changes Skin: (-) rashes Psych: (+ ) anxiety, depression at baseline Physical Exam Physical Exam: Neuro: AAOx4, no aphagia, memory changes, CNII-XII grossly intact HEENT: head normocephalic, moist mucus membranes CV: S1/S2, (-) M/G/R, (-) edema, cap refill < 3 seconds Resp: Lungs CTA in all croft, some expiratory wheezing. On RA GI: Abdomen S/NT/ND, Ax4 bowel sounds, (-) CVA tenderness Musculoskeletal: /5 B/L UE strength, /5 B/L LE strength. uses a walker. (+) tenderness L3-4 area and in sacral region Skin: (-) rashes , (-) erythema. Psych: euthymic mood Results & Data Results & Data ([facility]) Vital Signs (Past 12 Hours) Vital Signs Temp Pulse Pulse Resp BP BP Pulse Ox 10/02/21 16:26 95 10/02/21 15:38 74 20 143/76 H 94 10/02/21 13:54 69 19 119/53 L 95 10/02/21 13:41 36.8 C 68 16 116/49 L 95 O2 Del Method 10/02/21 16:26 Room Air 10/02/21 15:38 Room Air 10/02/21 13:54 Room Air 10/02/21 13:41 Room Air Laboratory Results Short CBC 10/02/21 Range/Units 15:12 WBC 6.91 (4.8-10.8) K/ul Hgb 8.0 L (12.0-16.0) g/dl Hct 27.2 L (34.1-44.9) % Plt Count 265 (130-400) K/uL BMP 10/02/21 15:12 Sodium 137 Potassium 3.1 L Chloride 100 Carbon Dioxide 30 BUN 22 Creatinine 0.94 Glucose 116 H Calcium 8.1 L Liver Function 10/02/21 Range/Units 15:12 Total Bilirubin 0.5 (0.2-1.0) mg/dl AST 21 (13-39) U/L ALT 16 (7-52) U/L Alkaline Phosphatase 44 (34-104) U/L Albumin 3.7 (3.4-5.0) gm/dl Diagnostic Findings Abdomen/Pelvis CT 10/02/21 14:[address] WITH CONTRAST, ABDOMEN AND PELVIS CT WITH INTRAVENOUS CONTRAST CT DOSE: 501.07 mGy.cm HISTORY: fall, rib pain, back pain TECHNIQUE: Multiaxial CT images of the chest, abdomen, and pelvis were performed following the intravenous administration of contrast. A dose lowering technique was utilized adhering to the principles of ALARA. COMPARISON: Chest CTA 05/03/2021. Abdomen and pelvis CT 09/19/2011. FINDINGS: Chest CT: There is an old mild superior endplate compression deformity at T1, unchanged. There is an acute mild superior endplate compression fracture at T11 with 4 mm of retropulsion and mild central canal narrowing. There is mild paravertebral edema at this location due to the acute fracture. There are he aling left anterior fourth and fifth rib fractures. No pneumothorax. The central airways are patent. Small to moderate bilateral pleural effusions, left greater than right. Bilateral lower lobe consolidation favors compressive atelectasis from the pleural effusions. Calcified granulomas within the left lung apex. The heart is mildly enlarged. There are dense mitral annulus calcifications. No pericardial effusion. Normal esophagus. The thyroid gland enhances normally. No mediastinal hematoma or lymphadenopathy. No evidence for an aortic dissection. The central pulmonary arteries appear patent. Prior left mastectomy. Progressive consolidation identified within the wedge-shaped density within the right lung apex. Abdomen/pelvis CT: No pneumoperitoneum. No pneumatosis. There is an acute nond isplaced fracture at the lower sacrum at the S4 level. There is an old mild superior endplate compression deformity at L5. Degenerative changes noted within the lumbar spine. There are few punctate calcified granulomas within the liver and spleen. Small amount of sludge within the gallbladder. No gallbladder wall thickening. The pancreas and right adrenal gland are unremarkable. Mild nodular thickening of the left adrenal gland with adjacent fat stranding. This measures 1.4 cm. This could represent an adrenal nodule or trace adrenal hemorrhage. A few bilateral renal hypodense lesions which favor cysts. The main portal vein is patent. No retroperitoneal lymphadenopathy. Prior hysterectomy. Mild pelvic floor collapse. No pelvic free fluid. No bowel wall thickening or obstruction. Normal appendix. There appears to be a 7 mm soft tissue nodule within the anterior wall of the bladder on image 329. IMPRESSION: 1. An acute mild superior endplate compression fracture at T11 with 4 mm of r etropulsion mild central canal narrowing. 2. An acute nondisplaced sacral fracture at the S4 level. 3. Nodular thickening of the left adrenal gland with adjacent fat stranding. This measures 1.4 cm and could represent an adrenal nodule or trace adrenal hemorrhage. 4. A 7 mm soft tissue nodule within the anterior wall of the bladder. Follow-up urology consultation recommended to exclude the possibility of a bladder lesion. 5. Small to moderate bilateral pleural effusions, left greater than right. 6. Healing left anterior fourth and fifth rib fractures. No pneumothorax. 7. Additional findings as described above. ACT 112: Negative or not required by law. Electronically signed by: Eulalio Pinon M.D. 10/02/2021 4:[address] 10/02/21 14:[address] WITH CONTRAST, ABDOMEN AND PELVIS CT WITH INTRAVENOUS CONTRAST CT DOSE: 501.07 mGy.cm HISTORY: fall, rib pain, back pain TECHNIQUE: Multiaxial CT images of the chest, abdomen, and pelvis were performed following the intravenous administration of contrast. A dose lowering technique was utilized adhering to the principles of ALARA. COMPARISON: Chest CTA 05/03/2021. Abdomen and pelvis CT 09/19/2011. FINDINGS: Chest CT: There is an old mild superior endplate compression deformity at T1, unchanged. There is an acute mild superior endplate compression fracture at T11 with 4 mm of retropulsion and mild central canal narrowing. There is mild paravertebral edema at this location due to the acute fracture. There are healing left anterior fourth and fifth rib fractures. No pneumothorax. The central airways are patent. Small to moderate bilateral pleural effusions, left greater than right. Bilateral lower lobe consolidation favors compressive atelectasis from the pleural effusions. Calcified granulomas within the left lung apex. The heart is mildly enlarged. There are dense mitral annulus calcifications. No pericardial effusion. Normal esophagus. The thyroid gland enhances normally. No mediastinal hematoma or lymphadenopathy. No evidence for an aortic dissection. The central pulmonary arteries appear patent. Prior left mastectomy. Progressive consolidation identified within the wedge-shaped density within the right lung apex. Abdomen/pelvis CT: No pneumoperitoneum. No pneumatosis. There is an acute nondisplaced fracture at the lower sacrum at the S4 level. There is an old mild superior endplate compression deformity at L5. Degenerative changes noted within the lumbar spine. There are few punctate calcified granulomas within the liver and spleen. Small amount of sludge within the gallbladder. No gallbladder wall thickening. The pancreas and right adrenal gland are unremarkable. Mild nodular thickening of the left adrenal gland with adjacent fat stranding. This measures 1.4 cm. This could represent an adrenal nodule or trace adrenal hemorrhage. A few bilateral renal hypodense lesions which favor cysts. The main portal vein is patent. No retroperitoneal lymphadenopathy. Prior hysterectomy. Mild pelvic floor collapse. No pelvic free fluid. No bowel wall thickening or obstruction. Normal appendix. There appears to be a 7 mm soft tissue nodule within the anter ior wall of the bladder on image 329. IMPRESSION: 1. An acute mild superior endplate compression fracture at T11 with 4 mm of retropulsion mild central canal narrowing. 2. An acute nondisplaced sacral fracture at the S4 level. 3. Nodular thickening of the left adrenal gland with adjacent fat stranding. This measures 1.4 cm and could represent an adrenal nodule or trace adrenal hemorrhage. 4. A 7 mm soft tissue nodule within the anterior wall of the bladder. Follow-up urology consultation recommended to exclude the possibility of a bladder lesion. 5. Small to moderate bilateral pleural effusions, left greater than right. 6. Healing left anterior fourth and fifth rib fractures. No pneumothorax. 7. Additional findings as described above. ACT 112: Negative or not required by law. Electronically signed by: Eulalio Pinon M.D. 10/02/2021 4:[address] 10/02/21 14:15 CT lumbar spine w con HISTORY: fall, back pain TECHNIQUE: Multiaxial CT images of the lumbar spine were performed and reformatted in the sagittal and coronal plane following the intravenous administration of contrast. COMPARISON STUDY: Lumbar spine 09/19/2011. FINDINGS: There is an old mild superior endplate compression deformity at L5 which demonstrates 5 mm of retropulsion of the posterior superior corner resulting in moderate central canal narrowing at this level. No acute fracture or subluxation within the lumbar spine. Moderate to severe facet degenerative changes within the lumbar spine. There is moderate disc space narrowing at L3-L4 and L4-5. Mild disc space narrowing at L5-S1. There is 5 mm of anterolisthesis of L3 on L4. In conjunction with the severe facet hypertrophy this results in severe central canal narrowing at this level. IMPRESSION: 1. No acute fractures within the lumbar spine. 2. Degenerative changes as described above with severe central canal narrowing at L3-L4. 3. There is an old mild superior endplate compression deformity at L5. ACT 112: Negative or not required by law. Electronically signed by: Eulalio Pinon M.D. 10/02/2021 4:42 PM Elbow X-Ray 10/02/21 14:20 XR elbow LT min 3V routine CLINICAL HISTORY: fall. Left elbow pain. COMPARISON STUDY: None. FINDINGS: Mild posterior soft tissue irregularity. No fracture or dislocation within the left elbow. No elbow effusion. No radiopaque foreign bodies. 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 IMPRESSION: No fracture or dislocation within the left elbow. ACT 112: Negative or not required by law. Electronically signed by: Eulalio Pinon M.D. 10/02/2021 3:19 PM Code Status & VTE Plan Code Status DNR/DNI in the event of cardiac or respiratory arrest VTE Prophylaxis Plan VTE Prophylaxis will be ordered: Yes Supervising Physician Co-Signing Physician Notes Patient was seen and examined at bedside. Chart reviewed. Case discussed with Felicita ABARCA and agree with the documentation above in regards to the HPI, exam and assessment/plan. In summary, this is a 89 year old female who presented to the ED for back pain after sustaining mechanical fall this morning. Found to have acute T11 fracture and sacral fracture and pain at those areas. Pain controlled unless moves. Lying in bed, not in acute distress, chest clear, breath sounds normal, tenderness on palpation of back, no LE edema, abd benign. Agree with admission for pain management, ortho evaluation, PT/OT eval. Rest as per the note above.
[2021-10-02] MEDS ORDERED: oxyCODONE HCL IR 5 MG TAB (IMMEDIATE RELEASE) PO PRN (20:55)
[2021-10-02] MEDS ORDERED: POTASSIUM CHLORIDE CRTAB 20 MEQ TABCR PO STA (20:55)
[2021-10-02] MEDS ORDERED: BENZONATATE 100 MG CAPSULE PO PRN (20:55)
[2021-10-02] MEDS ORDERED: ACETAMINOPHEN 325 MG TAB PO PRN (20:55)
[2021-10-02] MEDS: LORazepam 0.5 MG TAB PO SCH (21:31)
[2021-10-02] MEDS: DOCUSATE SODIUM 100 MG CAP PO SCH (21:31)
[2021-10-02] MEDS: DONEPEZIL HCL 5 MG TAB PO SCH (21:32)
[2021-10-02] MEDS: MONTELUKAST SODIUM 10 MG TABLET PO SCH (21:32)
[2021-10-02] MEDS: METOPROLOL TARTRATE 25 MG TAB PO SCH (21:32)
[2021-10-02] MEDS: PANTOprazole 40 MG TAB PO SCH (21:32)
[2021-10-02] MEDS: CALCIUM CARBONATE 1250MG TAB PO SCH (21:44)
[2021-10-02] MEDS: LIDOCAINE 5% 1 PATCH TD SCH (21:44)
[2021-10-02] MEDS: HEPARIN SOD 5,000 UNIT/0.5 ML VIAL SQ SCH (21:49)
[2021-10-03] MEDS: LORazepam 0.5 MG TAB PO SCH ×3 (06:29→20:43)
[2021-10-03] MEDS: HEPARIN SOD 5,000 UNIT/0.5 ML VIAL SQ SCH ×3 (06:29→20:47)
[2021-10-03 07:01] LABS: Hematocrit (blood only) 28.3 % (34.1-44.9); Hemoglobin 8.5 g/dl (12.0-16.0); Mean Corpuscular Hemoglobin 23.7 pg (25.0-34.0); Mean Corpuscular Volume 78.8 fL (80.0-100.0); Mean Platelet Volume 10.3 fL (9.4-12.3); Platelet Count 275 K/uL (130-400); RDW Coefficient of Variation 16.8 % (11.5-14.5); RDW Standard Deviation 47.3 fL (36.4-46.3); Red Blood Count 3.59 M/uL (3.93-5.22); White Blood Count 8.28 K/ul (4.8-10.8)
[2021-10-03 07:33] LABS: BUN Creatinine Ratio 23.3 (10-20); Calcium 8.8 mg/dl (8.5-10.1); Est GFR (African American) 69.4 ml/min; Est GFR (Non-African American) 59.9 ml/min; Potassium 4.1 mmol/L (3.5-5.1)
--- NOTE | 2021-10-03 08:23 | Consultation ---
Date of Consultation October 03, 2021 Assessment & Plan (1) Fracture of thoracic spine: Options have been reviewed with the patient. Plan is to proceed with conservative management. Would recommend dedicated thoracic CT scan for better evaluation of T11 compression fracture. I will also order a TLSO brace to be worn with ambulation/activity. I am unsure if she will be able to tolerate the brace due to her COPD. I will order nonetheless and see how she does with it. No lifting greater than 5 pounds. Continue ambulation with a walker once brace has been obtained. (2) Closed sacral fracture: Treatment is conservative. Weight-bear as tolerated with assistance with a walker. History of Present Illness Reason for Consultation: Compression fracture Attending Physician: Isaura Pretty MD History of Present Illness Is a very pleasant 89-year-old female who is a resident of the [facility]. About 4 in the morning Monday a.m. she thought she heard a wrap on the wall and got up. She states she got up too suddenly and fell landing on her tailbone. She called for help. She was then transported to to [facility] ER for further evaluation. Typically she only eats with a walker. She states she has no prior history of lower back issues. Currently has no radicular leg pain, paresthesia, numbness or weakness. Her pain is currently along the thoracolumbar region and tailbone area Allergies Allergy/AdvReac Type Severity Reaction Status Date / Time bee venom protein (honey bee) Allergy Severe ANAPHYLAXIS Verified 10/02/21 17:08 Home Medications Medication Instructions Recorded Confirmed Type losartan 25 mg tablet 25 mg PO QAM 03/07/18 10/02/21 History aspirin 81 mg tablet,delayed 81 mg PO QAM 04/30/21 10/02/21 History release montelukast 10 mg tablet 10 mg PO HS 04/30/21 10/02/21 History tiotropium 2.5 mcg-olodaterol 2.5 1 puff inhalation QAM 04/30/21 10/02/21 History mcg/actuation mist for inhalation (Stiolto Respimat) acetaminophen 325 mg tablet 650 mg PO Q4H PRN Pain 06/24/21 10/02/21 History (Tylenol) calcium carbonate 500 mg calcium 500 mg PO BID 06/24/21 10/02/21 History (1,250 mg) chewable tablet docusate sodium 100 mg capsule 100 mg PO BID 06/24/21 10/02/21 History (Colace) donepezil 5 mg tablet 5 mg PO BID 06/24/21 10/02/21 History lorazepam 0.5 mg tablet 0.5 mg PO TID 06/24/21 10/02/21 History sertraline 100 mg tablet 150 mg PO QAM 07/06/21 10/02/21 History furosemide 40 mg tablet 40 mg PO QAM #30 tabs 07/09/21 10/02/21 Rx potassium chloride 10 mEq 10 meq PO DAILY #30 tabs 07/09/21 10/02/21 Rx tablet,extended release(part/cryst) benzonatate 100 mg capsule 100 mg PO TID PRN cough #30 caps 09/09/21 10/02/21 Rx amiodarone 200 mg tablet 200 mg PO QAM 10/02/21 10/02/21 History cetirizine 10 mg tablet (Zyrtec) 10 mg PO QAM 10/02/21 10/02/21 History metoprolol tartrate 25 mg tablet 12.5 mg PO BID 10/02/21 10/02/21 History pantoprazole 40 mg tablet,delayed 40 mg PO BID 10/02/21 10/02/21 History release spironolactone 25 mg tablet 12.5 mg PO QAM 10/02/21 10/02/21 History Patient History Medical History Abnormal CT of the chest Anemia of chronic disease Anxiety Anxiety Asthma USING RESCUE INHALER FREQUENTLY/DAILY Asthma-COPD overlap syndrome Cancer BREAST CANCER-LEFT MASTECTOMY Chronic obstructive pulmonary disease COPD (chronic obstructive pulmonary disease) Deep vein thrombosis 15 YEARS AGO S/P LEG SURGERY Dysphagia HX ESOPHAGEAL STRETCHING Fall GERD (gastroesophageal reflux disease) History of pulmonary embolism HTN (hypertension) Hypertension Osteoarthritis PAF (paroxysmal atrial fibrillation) Prolapsed bladder Pulmonary nodule, right Rectal bleeding Senile degeneration of brain Surgical History History of cataract surgery RT/LEFT History of colonoscopy History of esophagogastroduodenoscopy (EGD) History of mastectomy LEFT (NO BP/LAB DRAWS) History of tonsillectomy History of tooth extraction History of total hysterectomy with bilateral salpingo-oophorectomy (BSO) History of total knee replacement LEFT/RT Family History Other Family history non-contributory Social History Smoking Status: Never smoker Second Hand Exposure: No; Hx Alcohol Use: No Hx Substance Use: No Preferred Language: Slovak Communication Ability: Effective Patient Support Assistant Required: No Beliefs That Will Affect Care: Anabaptism marital status: Current Living Situation: Personal Care Facility Other Information That Helps Us Care for You: No Feels Safe at Home: Yes Safety Concerns: Feels Safe At This Time Childhood Exposure to Second-Hand Smoke: Yes Dental Care, Regularly: Yes Assistive Devices: Glasses and Hearing Aid - Bilateral Review of Systems Review of Systems: All systems reviewed & are unremarkable except as noted in HPI & below Physical Exam Physical Exam: She is lying in bed in no acute distress Alert and oriented x3 Strength is intact bilateral lower extremities Modest tenderness over the sacral region and thoracolumbar region midline. Results & Data ([facility]) Vital Signs (Past 12 Hours) Vital Signs Temp Pulse Pulse Resp BP Pulse Ox O2 Del Method 10/03/21 07:48 74 10/03/21 04:15 36.7 C 72 20 149/72 H 92 Room Air 10/02/21 23:56 36.7 C 72 20 121/67 92 Room Air 10/02/21 23:55 76 10/02/21 20:30 71 10/02/21 20:30 Room Air 10/02/21 20:30 36.4 C L 69 20 149/70 H 95 Room Air Diagnostic Findings [place], [place] [phone] CT Scan Report Patient:NALLELY NOBLE Admit Date:10/02/21 MR#:[id number] Address1:[address] [facility] Acct ID:[id number] Address2:[facility] Date:[address] [facility] Zip:[place] [address] Age:89 Location:ED Sex:F Room/Bed: Att Phy: Diagnosis:FALL,TAILBONE PAIN Neris Phy:[facility] Service Date:10/02/21 Fam Phy: Interpreting Phy:Eulalio Pinon MDAdmit Phy: Ordering Phy:Yomi Molina M.D. cc: ~ CT lumbar spine w con HISTORY: fall, back pain TECHNIQUE: Multiaxial CT images of the lumbar spine were performed and reformatted in the sagittal and coronal plane following the intravenous administration of contrast. COMPARISON STUDY: Lumbar spine 09/19/2011. FINDINGS: There is an old mild superior endplate compression deformity at L5 which demonstrates 5 mm of retropulsion of the posterior superior corner resulting in moderate central canal narrowing at this level. No acute fracture or subluxation within the lumbar spine. Moderate to severe facet degenerative changes within the lumbar spine. There is moderate disc space narrowing at L3-L4 and L4-5. Mild disc space narrowing at L5-S1. There is 5 mm of anterolisthesis of L3 on L4. In conjunction with the severe facet hypertrophy this results in severe central canal narrowing at this level. IMPRESSION: 1. No acute fractures within the lumbar spine. 2. Degenerative changes as described above with severe central canal narrowing at L3-L4. 3. There is an old mild superior endplate compression deformity at L5. ACT 112: Negative or not required by law. Electronically signed by: Eulalio Pinon M.D. 10/02/2021 4:42 PM Dictated:10/02/21 1638 Transcribed: 10/02/21 1638 [place], [place] [phone] CT Scan Report Patient:NALLELY NOBLE Admit Date:10/02/21 MR#:[id number] Address1:[address] [place] [address] Acct ID:[id number] Address2:[facility] Date:[address] [facility] Zip:[place] [address] Age:89 Location:ED Sex:F Room/Bed: Att Phy: Diagnosis:FALL,TAILBONE PAIN Neris Phy:[facility] Service Date:10/02/21 Fam Phy: Interpreting Phy:Eulalio Pinon MDAdmit Phy: Ordering Phy:Yomi Molina M.D. cc: ~ CHEST CT WITH CONTRAST, ABDOMEN AND PELVIS CT WITH INTRAVENOUS CONTRAST CT DOSE: 501.07 mGy.cm HISTORY: fall, rib pain, back pain TECHNIQUE: Multiaxial CT images of the chest, abdomen, and pelvis were performed following the intravenous administration of contrast. A dose lowering technique was utilized adhering to the principles of ALARA. COMPARISON: Chest CTA 05/03/2021. Abdomen and pelvis CT 09/19/2011. FINDINGS: Chest CT: There is an old mild superior endplate compression deformity at T1, unchanged. There is an acute mild superior endplate compression fracture at T11 with 4 mm of retropulsion and mild central canal narrowing. There is mild paravertebral edema at this location due to the acute fracture. There are healing left anterior fourth and fifth rib fractures. No pneumothorax. The central airways are patent. Small to moderate bilateral pleural effusions, left greater than right. Bilateral lower lobe consolidation favors compressive atelectasis from the pleural effusions. Calcified granulomas within the left lung apex. The heart is mildly enlarged. There are dense mitral annulus calcifications. No pericardial effusion. Normal esophagus. The thyroid gland enhances normally. No mediastinal hematoma or lymphadenopathy. No evidence for an aortic dissection. The central pulmonary arteries appear patent. Prior left mastectomy. Progressive consolidation identified within the wedge-shaped density within the right lung apex. Abdomen/pelvis CT: No pneumoperitoneum. No pneumatosis. There is an acute nondisplaced fracture at the lower sacrum at the S4 level. There is an old mild superior endplate compression deformity at L5. Degenerative changes noted within the lumbar spine. There are few punctate calcified granulomas within the liver and spleen. Small amount of sludge within the gallbladder. No gallbladder wall thickening. The pancreas and right adrenal gland are unremarkable. Mild nodular thickening of the left adrenal gland with adjacent fat stranding. This measures 1.4 cm. This could represent an adrenal nodule or trace adrenal hemorrhage. A few bilateral renal hypodense lesions which favor cysts. The main portal vein is patent. No retroperitoneal lymphadenopathy. Prior hysterectomy. Mild pelvic floor collapse. No pelvic free fluid. No bowel wall thickening or obstruction. Normal appendix. There appears to be a 7 mm soft tissue nodule within the anterior wall of the bladder on image 329. IMPRESSION: 1. An acute mild superior endplate compression fracture at T11 with 4 mm of retropulsion mild central canal narrowing. 2. An acute nondisplaced sacral fracture at the S4 level. 3. Nodular thickening of the left adrenal gland with adjacent fat stranding. This measures 1.4 cm and could represent an adrenal nodule or trace adrenal hemorrhage. 4. A 7 mm soft tissue nodule within the anterior wall of the bladder. Follow-up urology consultation recommended to exclude the possibility of a bladder lesion. 5. Small to moderate bilateral pleural effusions, left greater than right. 6. Healing left anterior fourth and fifth rib fractures. No pneumothorax. 7. Additional findings as described above. ACT 112: Negative or not required by law. Electronically signed by: Eulalio Pinon M.D. 10/02/2021 4:38 PM Dictated:10/02/21 1623 Transcribed: 10/02/21 1623 (1) Fracture of thoracic spine Encounter type: initial encounter Fracture morphology: unspecified fracture morphology Fracture type: closed Thoracic vertebra fracture level: T11 Qualified Code(s): S22.089A - Unspecified fracture of T11-T12 vertebra, initial encounter for closed fracture
[2021-10-03] MEDS: DONEPEZIL HCL 5 MG TAB PO SCH ×2 (08:25→20:46)
[2021-10-03] MEDS: CETIRIZINE HCL 10 MG TABLET PO SCH (08:25)
[2021-10-03] MEDS: FERROUS SULFATE 325 MG TAB PO SCH (08:25)
[2021-10-03] MEDS: DOCUSATE SODIUM 100 MG CAP PO SCH ×2 (08:25→20:46)
[2021-10-03] MEDS: AMIODARONE 200 MG TAB PO SCH (08:25)
[2021-10-03] MEDS: PANTOprazole 40 MG TAB PO SCH ×2 (08:26→20:46)
[2021-10-03] MEDS: FUROSEMIDE 40 MG TAB PO SCH (08:26)
[2021-10-03] MEDS: LOSARTAN POTASSIUM 25 MG TAB PO SCH (08:26)
[2021-10-03] MEDS: SERTRALINE HCL 50 MG TABLET PO SCH (08:26)
[2021-10-03] MEDS: METOPROLOL TARTRATE 25 MG TAB PO SCH ×2 (08:27→20:48)
[2021-10-03] MEDS: CALCIUM CARBONATE 1250MG TAB PO SCH ×2 (08:27→20:44)
[2021-10-03] MEDS: UMECLIDINIUM/VILANTEROL 62.5/25MCG 7 PUFFS/INHALER INH SCH (08:27)
[2021-10-03] MEDS: POTASSIUM CHLORIDE CRTAB 20 MEQ TABCR PO SCH (08:27)
[2021-10-03] MEDS: SPIRONOLACTONE 12.5 MG TAB PO SCH (08:28)
[2021-10-03] MEDS: ASPIRIN 81 MG ECTAB PO SCH (08:29)
--- NOTE | 2021-10-03 09:07 | XRay Report ---
XR chest 1V portable HISTORY: 89 years-old Female post-operative coughing and wheezing acute cough with wheezing COMPARISON: CT abdomen and pelvis 10/02/2021, Acute abdominal series radiographs 09/09/2021 TECHNIQUE: AP view of the chest FINDINGS: The cardiac silhouette is enlarged. Atherosclerosis of the aorta. Layering pleural effusions with bib asilar consolidation. Pulmonary vascular congestion with interstitial coarsening. Degenerative change s of the shoulders and spine with chronic right proximal humeral deformity. IMPRESSION: 1. Cardiomegaly with pulmonary edema. 2. Left greater than right layering pleural effusions with bibasilar consolidation suggestive of atel ectasis versus pneumonia. ACT 112: Negative or not required by law. The above report was generated using voice recognition software. It may contain grammatical, syntax o r spelling errors. Electronically signed by: Tony Zaragoza M.D. 10/03/2021 9:05 AM
--- NOTE | 2021-10-03 09:09 | Electrocardiogram Report ---
Test Reason : Blood Pressure : / mmHG Vent. Rate : 074 BPM Atrial Rate : 074 BPM P-R Int : 160 ms QRS Dur : 096 ms QT Int : 418 ms P-R-T Axes : 074 072 063 degrees QTc Int : 463 ms Normal sinus rhythm Left atrial enlargement Incomplete right bundle branch block Borderline ECG When compared with ECG of 06-JUL-2021 14:05, No significant change was found Confirmed by Nathanael Wright ([id number]) on 10/03/2021 9:09:21 AM Referred By: REFERRED SELF Confirmed By:Nathanael Wright
--- NOTE | 2021-10-03 10:13 | CT Scan Report ---
CT thoracic spine wo con HISTORY: 89 years-old Female eval T11 fx acute mild superior endplate compression deformity of T11 w ith 4 mm retropulsion and mild central canal stenosis. COMPARISON: Chest CT 10/02/2021, chest CTA 05/03/2021. TECHNIQUE: Multiple axial CT images of the thoracic spine were obtained without the use of IV contras t. A dose lowering technique was used consistent with the principals of ALARA. FINDINGS: There is an old mild superior endplate compression deformity at T1, unchanged. There is an acute mild superior endplate compression fracture at T11 with 4 mm of retropulsion and mild central canal narro wing. There is mild paravertebral edema at this location due to the acute fracture. The degree of sup erior endplate compression may have mildly worsened from the prior study. Demineralized appearance of the bones with mild multilevel vertebral disc space narrowing, spondyliti c spurring and facet arthrosis. Mild thoracic levoscoliosis. Mild central canal stenosis at T11 is ag ain noted. AP dimension of the thecal sac measures 9 mm. Mild left-sided neural foraminal narrowing a t T10-T11 is unchanged. Left greater than right layering pleural effusions with dependent bibasilar consolidation. Wedge-shap ed consolidation of the right lung apex again noted. Calcified granulomata of the spleen. Heterogeneo us enhancement of the left kidney. Cardiac megaly with mitral annular calcifications. IMPRESSION: 1. Acute superior endplate compression fracture at T11 with 4 mm of retropulsion is redemonstrated re sulting in mild central canal narrowing. Mild associated paravertebral edema. 2. Chronic T1 compression deformity. ACT 112: Negative or not required by law. The above report was generated using voice recognition software. It may contain grammatical, syntax o r spelling errors. Electronically signed by: Tony Zaragoza M.D. 10/03/2021 10:11 AM
--- NOTE | 2021-10-03 14:34 | Hospitalist Progress Note ---
Date of Service October 03, 2021 Assessment & Plan (1) Fall: Plan: -s/p getting up out of her bed in the middle of the night as she thought someone was knocking on her door. -The fall is likely secondary to postural hypotension/mechanical -Will get orthostatic vitals Fracture of thoracic spine and Sacral fracture at the level of S4 -Secondary to fall -X-ray obtained with results indicating an acute mild superior endplate compression fracture at T11 with 4 mm of retropulsion mild central canal narrowing, an acute nondisplaced sacral fracture at the S4 level. -She is not on any bisphosphonates; will add Ca+/VitaminD -Last Dexa 2018; did show some worsening in the left hip area although the low lumbar area remained unchanged. -Pt was on Alendronate prior and it was stopped by PCP to avoid increased fragility syndrome. -Appreciate Ortho input and recommendation -Diet has been started (2) Hypokalemia: Plan: K+ 3.1 on admission. Will replace with Potassium 40mEq PO once now and recheck in AM. Pt takes KCL 10mEq PO daily; increased to 20. No ectopy or arrhythmia. IV repletion if no improved response Consider reassessing her home diuretics as her hospital course progresses. She's on oral K+, Aldactone, and Lasix. (3) Cancer: Plan: s/p left mastectomy for left breast carcinoma hx of lung carcinoma s/p XRT with history of radiation pneumonitis CT finding of 7 mm soft tissue nodule within the anterior wall of the bladder: Follow-up urology consultation recommended to exclude the possibility of a bladder lesion. Recommend outpatient Urology follow up. . (4) Acute heart failure with preserved ejection fraction: Plan: no LE swelling Recent admission with acute on chronic CHF Hgb 8.0; consider transfusion should patient become symptomatic. Continue PO Lasix Continue metoprolol and Aldactone Recent echocardiogram during last admission reviewed; EF 65 to 70%, left atrium severely dilated, mild MS, mild TR, moderate MR, severe pulmonary hypertension monitor on tele. (5) Anemia of chronic disease: Plan: Hemoglobin 7.0 on 09/22/2021 and on admission it was 8.0 and today on 10/03/2021- 8.5 Unspecified, microcytic Hemoccult ordered. Pt denies any nasima red or black/tarry stools. 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 Had a thoracentesis for large pleural effusion in June; 700 ml removed, non malignant. No acute exacerbation. (12) Chronic heart failure with preserved ejection fraction: Plan Dispo: Code: DNR/DNI PCP: Dr. Sun Plan to return to [facility] Admission and Anticipated Discharge Date Admission Date: October 02, 2021 Subjective 10/03/2021 The patient was seen and examined in medical telemetry unit She complains to have back pain without any radiation Denies any other symptoms and she does not have any problem with urine and or bowel habit Review of Systems Review of Systems: All systems reviewed and are unremarkable except as noted below Physical Exam Physical Exam: Lying in bed with minimal distress due to back pain Constitutional: + ill appearing and average body habitus Eyes: PERRL, conjunctivae normal, anicteric sclerae ENMT: external ear and nose normal, oropharynx normal Neck: trachea midline, no thyromegaly Respiratory: no respiratory distress Auscultation: lungs clear to auscultation bilaterally Cardiovascular: Rate/Rhythm: regular rate and regular rhythm Heart Sounds: normal S1, normal S2 and + murmur Extremities: no edema Gastrointestinal (Abdomen): Inspection/Auscultation: normal bowel sounds; abdomen not distended Percussion/Palpation: abdomen soft; abdomen nontender Musculoskeletal: No acute arthritis in any joint Neurologic: Alert, awake and oriented x3. No focal sensory or no motor deficit appreciated Lymphatic: no cervical or axillary lymphadenopathy Results & Data Results & Data ([facility]) Vital Signs (Past 12 Hours) Vital Signs Temp Pulse Pulse Resp BP Pulse Ox O2 Del Method 10/03/21 09:00 Room Air 10/03/21 11:38 36.8 C 71 18 113/63 95 Room Air 10/03/21 08:51 36.9 C 64 18 155/80 H 91 Room Air 10/03/21 08:20 64 155/80 H 10/03/21 07:48 74 10/03/21 04:15 36.7 C 72 20 149/72 H 92 Room Air Laboratory Results Short CBC 10/02/21 10/03/21 Range/Units 15:12 06:36 WBC 6.91 8.28 (4.8-10.8) K/ul Hgb 8.0 L 8.5 L (12.0-16.0) g/dl Hct 27.2 L 28.3 L (34.1-44.9) % Plt Count 265 275 (130-400) K/uL BMP 10/02/21 10/03/21 15:12 06:36 Sodium 137 138 Potassium 3.1 L 4.1 D Chloride 100 103 Carbon Dioxide 30 29 BUN 22 20 Creatinine 0.94 0.86 Glucose 116 H 99 Calcium 8.1 L 8.8 Liver Function 10/02/21 Range/Units 15:12 Total Bilirubin 0.5 (0.2-1.0) mg/dl AST 21 (13-39) U/L ALT 16 (7-52) U/L Alkaline Phosphatase 44 (34-104) U/L Albumin 3.7 (3.4-5.0) gm/dl Medications Administered Current Inpatient Medications Acetaminophen (Acetaminophen 325 Mg Tab) 650 mg PO Q4H PRN PRN Reason: Pain Stop: 11/01/21 20:54 Amiodarone HCl (Amiodarone 200 Mg Tab) [facility] [place]: 11/02/21 08:59 Last Admin: 10/03/21 08:25 Dose: 200 mg Aspirin (Aspirin 81 Mg Ectab) 81 mg PO QAM [facility] Stop: 11/02/21 08:59 Last Admin: 10/03/21 08:29 Dose: 81 mg Benzonatate (Benzonatate 100 Mg Capsule) 100 mg PO TID PRN PRN Reason: cough Stop: 11/01/21 20:54 Calcium Carbonate (Calcium Carbonate 1250mg Tab) 1,250 mg PO BID [facility] Stop: 11/01/21 20:59 Last Admin: 10/03/21 08:27 Dose: 1,250 mg Cetirizine HCl (Cetirizine Hcl 10 Mg Tablet) 10 mg PO QAM [facility] Stop: 11/02/21 08:59 Last Admin: 10/03/21 08:25 Dose: 10 mg Docusate Sodium (Docusate Sodium 100 Mg Cap) 100 mg PO BID [facility] Stop: 11/01/21 20:59 Last Admin: 10/03/21 08:25 Dose: 100 mg Donepezil HCl (Donepezil Hcl 5 Mg Tab) 5 mg PO BID [facility] Stop: 11/01/21 20:59 Last Admin: 10/03/21 08:25 Dose: 5 mg Ferrous Sulfate (Ferrous Sulfate 325 Mg Tab) 325 mg PO QAM [facility] Stop: 11/02/21 08:59 Last Admin: 10/03/21 08:25 Dose: 325 mg Furosemide (Furosemide 40 Mg Tab) 40 mg PO QAM [facility] Stop: 11/02/21 08:59 Last Admin: 10/03/21 08:26 Dose: 40 mg Heparin Sodium (Porcine) (Heparin Sod 5,000 Unit/0.5 Ml Vial) 5,000 units SQ Q8 [facility] Stop: 11/01/21 21:59 Last Admin: 10/03/21 14:16 Dose: 5,000 units Lidocaine (Lidocaine 5% 1 Patch) 1 patch TD HS [facility] Stop: 11/01/21 21:14 Last Admin: 10/02/21 21:44 Dose: 1 patch Lorazepam (Lorazepam 0.5 Mg Tab) 0.5 mg PO TID@0630,1500,2000 [facility] Stop: 11/01/21 20:59 Last Admin: 10/03/21 14:16 Dose: 0.5 mg Losartan Potassium (Losartan Potassium 25 Mg Tab) 25 mg PO QAM [facility] Stop: 11/02/21 08:59 Last Admin: 10/03/21 08:26 Dose: 25 mg Metoprolol Tartrate (Metoprolol Tartrate 25 Mg Tab) 12.5 mg PO BID [facility] Stop: 11/01/21 20:59 Last Admin: 10/03/21 08:27 Dose: 12.5 mg Miscellaneous (Remove Lidoderm Patch) 1 each N/A QAM [facility] Stop: 11/02/21 08:59 Last Admin: 10/03/21 08:28 Dose: 1 each Montelukast Sodium (Montelukast Sodium 10 Mg Tablet) 10 mg PO HS [facility] Stop: 11/01/21 20:59 Last Admin: 10/02/21 21:32 Dose: 10 mg Oxycodone HCl (Oxycodone Hcl Ir 5 Mg Tab (Immediate Release)) 5 mg PO Q4H PRN PRN Reason: Pain Stop: 10/16/21 20:54 Pantoprazole Sodium (Pantoprazole 40 Mg Tab) 40 mg PO BID [facility] Stop: 11/01/21 20:59 Last Admin: 10/03/21 08:26 Dose: 40 mg Potassium Chloride (Potassium Chloride Crtab 20 Meq Tabcr) 20 meq PO DAILY [facility] Stop: 11/02/21 08:59 Last Admin: 10/03/21 08:27 Dose: 20 meq Sertraline HCl (Sertraline Hcl 50 Mg Tablet) 150 mg PO QAM [facility] Stop: 11/02/21 08:59 Last Admin: 10/03/21 08:26 Dose: 150 mg Spironolactone (Spironolactone 12.5 Mg Tab) 12.5 mg PO QAM [facility] Stop: 11/02/21 08:59 Last Admin: 10/03/21 08:28 Dose: 12.5 mg Umeclidinium/Vilanterol (Umeclidinium/Vilanterol 62.5/25mcg 7 Puffs/Inhaler) 1 puffs INH QAM [facility] Stop: 11/02/21 08:59 Last Admin: 10/03/21 08:27 Dose: 1 puffs
[2021-10-03] MEDS: MONTELUKAST SODIUM 10 MG TABLET PO SCH (20:46)
[2021-10-03] MEDS: LIDOCAINE 5% 1 PATCH TD SCH (21:16)
[2021-10-04 01:37] LABS: Appearance Urine Clear (Clear); Bacteria Urine Automated Negative (Negative); Bilirubin Urine Negative (Negative); Blood Urine Negative (Negative); Color Urine Yellow; Glucose Urine UA Negative (Negative); Ketones Urine Negative (Negative); Leukocyte Esterase Urine Negative (Negative); Nitrite Urine Negative (Negative); Protein Urine 1+ (Negative); RBC Urine Automated 0-4 /hpf (0-4); Specific Gravity Urine 1.023 (1.000-1.030); Urobilinogen Urine Negative (Negative); pH Urine 6.5 (4.5-7.5)
[2021-10-04] MEDS: LORazepam 0.5 MG TAB PO SCH ×3 (06:40→21:13)
[2021-10-04] MEDS: HEPARIN SOD 5,000 UNIT/0.5 ML VIAL SQ SCH ×3 (06:40→21:19)
[2021-10-04 07:00] LABS: Basophils # (auto) 0.05 K/uL (0-0.2); Basophils % (auto) 0.7 %; Eosinophils # (auto) 0.07 K/uL (0-0.50); Hematocrit (blood only) 27.4 % (34.1-44.9); Hemoglobin 8.1 g/dl (12.0-16.0); Immature Granulocytes # (auto) 0.03 K/uL (0.00-0.02); Immature Granulocytes % (auto) 0.4 %; Lymphocytes # (auto) 1.03 K/uL (1.2-3.4); Lymphocytes % (auto) 14.3 %; Mean Corpuscular Hemoglobin 23.4 pg (25.0-34.0); Mean Corpuscular Hgb Conc 29.6 g/dL (32.0-36.0); Mean Corpuscular Volume 79.2 fL (80.0-100.0); Mean Platelet Volume 10.6 fL (9.4-12.3); Monocytes # (auto) 0.83 K/uL (0.24-0.82); Monocytes % (auto) 11.5 %; Neutrophils % (auto) 72.1 %; Platelet Count 237 K/uL (130-400); RDW Coefficient of Variation 16.6 % (11.5-14.5); Red Blood Count 3.46 M/uL (3.93-5.22); White Blood Count 7.21 K/ul (4.8-10.8)
[2021-10-04 07:30] LABS: BUN Creatinine Ratio 26.5 (10-20); Calcium 8.5 mg/dl (8.5-10.1); Creatinine Clr Calc Pharmacy 37.3 ml/min; Est GFR (African American) 72.5 ml/min; Est GFR (Non-African American) 62.5 ml/min; Potassium 4.2 mmol/L (3.5-5.1)
[2021-10-04] MEDS: DOCUSATE SODIUM 100 MG CAP PO SCH ×2 (08:53→21:15)
[2021-10-04] MEDS: POTASSIUM CHLORIDE CRTAB 20 MEQ TABCR PO SCH (08:53)
[2021-10-04] MEDS: PANTOprazole 40 MG TAB PO SCH ×2 (08:53→21:17)
[2021-10-04] MEDS: FUROSEMIDE 40 MG TAB PO SCH (08:53)
[2021-10-04] MEDS: CALCIUM CARBONATE 1250MG TAB PO SCH ×2 (08:53→21:16)
[2021-10-04] MEDS: DONEPEZIL HCL 5 MG TAB PO SCH ×2 (08:53→21:15)
[2021-10-04] MEDS: CETIRIZINE HCL 10 MG TABLET PO SCH (08:53)
[2021-10-04] MEDS: SERTRALINE HCL 50 MG TABLET PO SCH (08:53)
[2021-10-04] MEDS: LOSARTAN POTASSIUM 25 MG TAB PO SCH (08:54)
[2021-10-04] MEDS: SPIRONOLACTONE 12.5 MG TAB PO SCH (08:54)
[2021-10-04] MEDS: ASPIRIN 81 MG ECTAB PO SCH (08:54)
[2021-10-04] MEDS: AMIODARONE 200 MG TAB PO SCH (08:54)
[2021-10-04] MEDS: FERROUS SULFATE 325 MG TAB PO SCH (08:54)
[2021-10-04] MEDS: METOPROLOL TARTRATE 25 MG TAB PO SCH ×2 (08:54→21:16)
[2021-10-04] MEDS: UMECLIDINIUM/VILANTEROL 62.5/25MCG 7 PUFFS/INHALER INH SCH (08:55)
--- NOTE | 2021-10-04 12:19 | Hospitalist Progress Note ---
Date of Service October 04, 2021 Assessment & Plan (1) Fall: Plan: -s/p getting up out of her bed in the middle of the night as she thought someone was knocking on her door. -The fall is likely secondary to postural hypotension/mechanical -Will get orthostatic vitals Fracture of thoracic spine and Sacral fracture at the level of S4 -Osteoporotic fractures, of T11 and S4 in the setting of ground level fall in underweight, elderly female. -X-ray obtained with results indicating an acute mild superior endplate compression fracture at T11 with 4 mm of retropulsion mild central canal narrowing, an acute nondisplaced sacral fracture at the S4 level. -She is not on any bisphosphonates; will add Ca+/VitaminD -Last Dexa 2018; did show some worsening in the left hip area although the low lumbar area remained unchanged. -Pt was on Alendronate prior and it was stopped by PCP to avoid increased fragility syndrome. -Appreciate Ortho input and recommendation -Diet has been started -We will have a back brace fitted and continue with PT and OT - (2) Hypokalemia: Plan: K+ 3.1 on admission. Will replace with Potassium 40mEq PO once now and recheck in AM. Pt takes KCL 10mEq PO daily; increased to 20. No ectopy or arrhythmia. IV repletion if no improved response Consider reassessing her home diuretics as her hospital course progresses. She's on oral K+, Aldactone, and Lasix. Potassium level has been normalized (3) Cancer: Plan: s/p left mastectomy for left breast carcinoma hx of lung carcinoma s/p XRT with history of radiation pneumonitis CT finding of 7 mm soft tissue nodule within the anterior wall of the bladder: Follow-up urology consultation recommended to exclude the possibility of a bladder lesion. Recommend outpatient Urology follow up. . (4) Anemia of chronic disease: Plan: Hemoglobin 7.0 on 09/22/2021 and on admission it was 8.0 and today on 10/03/2021- 8.5 Unspecified, microcytic Hemoccult ordered. Pt denies any nasima red or black/tarry stools. 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 Had a thoracentesis for large pleural effusion in June; 700 ml removed, non malignant. No acute exacerbation. (11) Chronic heart failure with preserved ejection fraction: Plan: no LE swelling Recent admission with acute on chronic CHF Hgb 8.0; consider transfusion should patient become symptomatic. Continue PO Lasix Continue metoprolol and Aldactone Recent echocardiogram during last admission reviewed; EF 65 to 70%, left atrium severely dilated, mild MS, mild TR, moderate MR, severe pulmonary hypertension monitor on tele. Plan Dispo: Code: DNR/DNI PCP: Dr. Sun Plan to return to [facility] Admission and Anticipated Discharge Date Admission Date: October 02, 2021 Subjective 10/03/2021 The patient was seen and examined in medical telemetry unit She complains to have back pain without any radiation Denies any other symptoms and she does not have any problem with urine and or bowel habit 10/04/2021 The patient was seen and examined in medical telemetry unit She has been feeling much better but he still has back pain without radiation She has been waiting for back brace and subsequent physical therapy Denies any other significant symptoms Review of Systems Review of Systems: All systems reviewed and are unremarkable except as noted below Physical Exam Physical Exam: Lying in bed with minimal distress due to back pain Constitutional: + ill appearing and average body habitus Eyes: PERRL, conjunctivae normal, anicteric sclerae ENMT: external ear and nose normal, oropharynx normal Neck: trachea midline, no thyromegaly Respiratory: no respiratory distress Auscultation: lungs clear to auscu ltation bilaterally Cardiovascular: Rate/Rhythm: regular rate and regular rhythm Heart Sounds: normal S1, normal S2 and + murmur Extremities: no edema Gastrointestinal (Abdomen): Inspection/Auscultation: normal bowel sounds; abdomen not distended Percussion/Palpation: abdomen soft; abdomen nontender Musculoskeletal: No acute arthritis in any joint Neurologic: Alert, awake and oriented x3. Generally weak and lethargic. No focal neurodeficit Psychiatric: A+Ox3, euthymic affect Lymphatic: no cervical or axillary lymphadenopathy Results & Data Results & Data ([facility]) Vital Signs (Past 12 Hours) Vital Signs Temp Pulse Pulse Resp BP Pulse Ox O2 Del Method 10/04/21 11:00 36.2 C L 83 18 139/71 93 Room Air 10/04/21 10:40 Room Air 10/04/21 07:36 77 10/04/21 07:26 37.3 C 79 20 165/76 H 93 10/04/21 04:00 36.6 C 76 20 143/69 H 92 Room Air Laboratory Results Short CBC 10/04/21 Range/Units 06:27 WBC 7.21 (4.8-10.8) K/ul Hgb 8.1 L (12.0-16.0) g/dl Hct 27.4 L (34.1-44.9) % Plt Count 237 (130-400) K/uL BMP 10/04/21 06:27 Sodium 136 Potassium 4.2 Chloride 101 Carbon Dioxide 29 BUN 22 Creatinine 0.83 Glucose 88 Calcium 8.5 Urine 10/04/21 Range/Units 01:05 Urine Color Yellow Urine Appearance Clear (Clear) Urine pH 6.5 (4.5-7.5) Ur Specific [place] 1.023 (1.000-1.030) Urine Protein 1+ H (Negative) Urine Glucose (UA) Negative (Negative) Medications Administered Current Inpatient Medications Acetaminophen (Acetaminophen 325 Mg Tab) 650 mg PO Q4H PRN PRN Reason: Pain Stop: 11/01/21 20:54 Amiodarone HCl (Amiodarone 200 Mg Tab) 200 mg PO [facility] Stop: 11/02/21 08:59 Last Admin: 10/04/21 08:54 Dose: 200 mg Aspirin (Aspirin 81 Mg Ectab) 81 mg PO QAM [facility] Stop: 11/02/21 08:59 Last Admin: 10/04/21 08:54 Dose: 81 mg Benzonatate (Benzonatate 100 Mg Capsule) 100 mg PO TID PRN PRN Reason: cough Stop: 11/01/21 20:54 Calcium Carbonate (Calcium Carbonate 1250mg Tab) 1,250 mg PO BID [facility] Stop: 11/01/21 20:59 Last Admin: 10/04/21 08:53 Dose: 1,250 mg Cetirizine HCl (Cetirizine Hcl 10 Mg Tablet) 10 mg PO QAM [facility] Stop: 11/02/21 08:59 Last Admin: 10/04/21 08:53 Dose: 10 mg Docusate Sodium (Docusate Sodium 100 Mg Cap) 100 mg PO BID [facility] Stop: 11/01/21 20:59 Last Admin: 10/04/21 08:53 Dose: 100 mg Donepezil HCl (Donepezil Hcl 5 Mg Tab) 5 mg PO BID [facility] Stop: 11/01/21 20:59 Last Admin: 10/04/21 08:53 Dose: 5 mg Ferrous Sulfate (Ferrous Sulfate 325 Mg Tab) 325 mg PO QAM [facility] Stop: 11/02/21 08:59 Last Admin: 10/04/21 08:54 Dose: 325 mg Furosemide (Furosemide 40 Mg Tab) 40 mg PO QAM [facility] Stop: 11/02/21 08:59 Last Admin: 10/04/21 08:53 Dose: 40 mg Heparin Sodium (Porcine) (Heparin Sod 5,000 Unit/0.5 Ml Vial) 5,000 units SQ Q8 [facility] Stop: 11/01/21 21:59 Last Admin: 10/04/21 06:40 Dose: 5,000 units Lidocaine (Lidocaine 5% 1 Patch) 1 patch TD HS [facility] Stop: 11/01/21 21:14 Last Admin: 10/03/21 21:16 Dose: 1 patch Lorazepam (Lorazepam 0.5 Mg Tab) 0.5 mg PO TID@0630,1500,2000 [facility] Stop: 11/01/21 20:59 Last Admin: 10/04/21 06:40 Dose: 0.5 mg Losartan Potassium (Losartan Potassium 25 Mg Tab) 25 mg PO QAM [facility] Stop: 11/02/21 08:59 Last Admin: 10/04/21 08:54 Dose: 25 mg Metoprolol Tartrate (Metoprolol Tartrate 25 Mg Tab) 12.5 mg PO BID [facility] Stop: 11/01/21 20:59 Last Admin: 10/04/21 08:54 Dose: 12.5 mg Miscellaneous (Remove Lidoderm Patch) 1 each N/A QAM [facility] Stop: 11/02/21 08:59 Last Admin: 10/04/21 08:58 Dose: 1 each Montelukast Sodium (Montelukast Sodium 10 Mg Tablet) 10 mg PO HS [facility] Stop: 11/01/21 20:59 Last Admin: 10/03/21 20:46 Dose: 10 mg Oxycodone HCl (Oxycodone Hcl Ir 5 Mg Tab (Immediate Release)) 5 mg PO Q4H PRN PRN Reason: Pain Stop: 10/16/21 20:54 Pantoprazole Sodium (Pantoprazole 40 Mg Tab) 40 mg PO BID [facility] Stop: 11/01/21 20:59 Last Admin: 10/04/21 08:53 Dose: 40 mg Potassium Chloride (Potassium Chloride Crtab 20 Meq Tabcr) 20 meq PO DAILY [facility] Stop: 11/02/21 08:59 Last Admin: 10/04/21 08:53 Dose: 20 meq Sertraline HCl (Sertraline Hcl 50 Mg Tablet) [facility] Stop: 11/02/21 08:59 Last Admin: 10/04/21 08:53 Dose: 150 mg Spironolactone (Spironolactone 12.5 Mg Tab) 12.5 mg PO QAM [facility] Stop: 11/02/21 08:59 Last Admin: 10/04/21 08:54 Dose: 12.5 mg Umeclidinium/Vilanterol (Umeclidinium/Vilanterol 62.5/25mcg 7 Puffs/Inhaler) 1 puffs INH QAM [facility] Stop: 11/02/21 08:59 Last Admin: 10/04/21 08:55 Dose: 1 puffs
[2021-10-04] MEDS: LIDOCAINE 5% 1 PATCH TD SCH (21:14)
[2021-10-04] MEDS: MONTELUKAST SODIUM 10 MG TABLET PO SCH (21:16)
[2021-10-05] MEDS: LORazepam 0.5 MG TAB PO SCH ×2 (05:52→14:22)
[2021-10-05] MEDS: HEPARIN SOD 5,000 UNIT/0.5 ML VIAL SQ SCH ×2 (05:53→14:22)
[2021-10-05 06:19] LABS: Hematocrit (blood only) 26.5 % (34.1-44.9); Hemoglobin 8.1 g/dl (12.0-16.0); Mean Corpuscular Hemoglobin 23.5 pg (25.0-34.0); Mean Corpuscular Hgb Conc 30.6 g/dL (32.0-36.0); Mean Platelet Volume 10.4 fL (9.4-12.3); Platelet Count 235 K/uL (130-400); RDW Coefficient of Variation 16.5 % (11.5-14.5); RDW Standard Deviation 45.1 fL (36.4-46.3); Red Blood Count 3.44 M/uL (3.93-5.22); White Blood Count 6.87 K/ul (4.8-10.8)
[2021-10-05] MEDS: CALCIUM CARBONATE 1250MG TAB PO SCH (08:22)
[2021-10-05] MEDS: DONEPEZIL HCL 5 MG TAB PO SCH (08:22)
[2021-10-05] MEDS: DOCUSATE SODIUM 100 MG CAP PO SCH (08:22)
[2021-10-05] MEDS: SERTRALINE HCL 50 MG TABLET PO SCH (08:23)
[2021-10-05] MEDS: CETIRIZINE HCL 10 MG TABLET PO SCH (08:23)
[2021-10-05] MEDS: AMIODARONE 200 MG TAB PO SCH (08:23)
[2021-10-05] MEDS: FERROUS SULFATE 325 MG TAB PO SCH (08:23)
[2021-10-05] MEDS: SPIRONOLACTONE 12.5 MG TAB PO SCH (08:24)
[2021-10-05] MEDS: POTASSIUM CHLORIDE CRTAB 20 MEQ TABCR PO SCH (08:24)
[2021-10-05] MEDS: LOSARTAN POTASSIUM 25 MG TAB PO SCH (08:24)
[2021-10-05] MEDS: FUROSEMIDE 40 MG TAB PO SCH (08:25)
[2021-10-05] MEDS: ASPIRIN 81 MG ECTAB PO SCH (08:25)
[2021-10-05] MEDS: METOPROLOL TARTRATE 25 MG TAB PO SCH (08:25)
[2021-10-05] MEDS: PANTOprazole 40 MG TAB PO SCH (08:25)
[2021-10-05] MEDS: UMECLIDINIUM/VILANTEROL 62.5/25MCG 7 PUFFS/INHALER INH SCH (08:26)
[2021-10-05 11:20] VITALS: BP 125/63; PULSE 70; TEMP 97.9; O2SAT 95
--- NOTE | 2021-10-05 13:56 | Hospitalist Progress Note ---
Date of Service October 05, 2021 Assessment & Plan (1) Fall: Plan: -s/p getting up out of her bed in the middle of the night as she thought someone was knocking on her door. -The fall is likely secondary to postural hypotension/mechanical -Will get orthostatic vitals Fracture of thoracic spine and Sacral fracture at the level of S4 -Osteoporotic fractures, of T11 and S4 in the setting of ground level fall in underweight, elderly female. -X-ray obtained with results indicating an acute mild superior endplate compression fracture at T11 with 4 mm of retropulsion mild central canal narrowing, an acute nondisplaced sacral fracture at the S4 level. -She is not on any bisphosphonates; will add Ca+/VitaminD -Last Dexa 2018; did show some worsening in the left hip area although the low lumbar area remained unchanged. -Pt was on Alendronate prior and it was stopped by PCP to avoid increased fragility syndrome. -Appreciate Ortho input and recommendation -Diet has been started -We will have a back brace fitted and continue with PT and OT -Has been getting physical therapy with back brace on and she has been doing much better with it -Still has some pain but will be discharged to [facility] this afternoon to continue with physical therapy (2) Hypokalemia: Plan: K+ 3.1 on admission. Will replace with Potassium 40mEq PO once now and recheck in AM. Pt takes KCL 10mEq PO daily; increased to 20. No ectopy or arrhythmia. IV repletion if no improved response Consider reassessing her home diuretics as her hospital course progresses. She's on oral K+, Aldactone, and Lasix. Potassium level has been normalized (3) Cancer: Plan: s/p left mastectomy for left breast carcinoma hx of lung carcinoma s/p XRT with history of radiation pneumonitis CT finding of 7 mm soft tissue nodule within the anterior wall of the bladder: Follow-up urology consultation recommended to exclude the possibility of a bladder lesion. Recommend outpatient Urology follow up. . (4) Anemia of chronic disease: Plan: Hemoglobin 7.0 on 09/22/2021 and on admission it was 8.0 and today on 10/03/2021- 8.5 Unspecified, microcytic Hemoccult ordered. Pt denies any nasima red or black/tarry stools. 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 Had a thoracentesis for large pleural effusion in June; 700 ml removed, non malignant. No acute exacerbation. (11) Chronic heart failure with preserved ejection fraction: Plan: no LE swelling Recent admission with acute on chronic CHF Hgb 8.0; consider transfusion should patient become symptomatic. Continue PO Lasix Continue metoprolol and Aldactone Recent echocardiogram during last admission reviewed; EF 65 to 70%, left atrium severely dilated, mild MS, mild TR, moderate MR, severe pulmonary hypertension monitor on tele. Plan Dispo: Code: DNR/DNI PCP: Dr. Sun Plan to return to [facility] Admission and Anticipated Discharge Date Admission Date: October 02, 2021 Subjective 10/03/2021 The patient was seen and examined in medical telemetry unit She complains to have back pain without any radiation Denies any other symptoms and she does not have any problem with urine and or bowel habit 10/04/2021 The patient was seen and examined in medical telemetry unit She has been feeling much better but he still has back pain without radiation She has been waiting for back brace and subsequent physical therapy Denies any other significant symptoms 10/05/2021 The patient was seen and examined in medical telemetry unit She has been complaining of some lower back pain following physical therapy Denies any other significant symptoms She will be discharged to [facility] this afternoon Review of Systems Review of Systems: All systems reviewed and are unremarkable except as noted below Physical Exam Physical Exam: Lying in bed comfortably Constitutional: + ill appearing and average body habitus Eyes: PERRL, conjunctivae normal, anicteric sclerae ENMT: external ear and nose normal, oropharynx normal Neck: trachea midline, no thyromegaly Respiratory: no respiratory distress Auscultation: lungs clear to auscultation bilaterally Cardiovascular: Rate/Rhythm: regular rate and regular rhythm Heart Sounds: normal S1, normal S2 and + murmur Extremities: no edema Gastrointestinal (Abdomen): Inspection/Auscultation: normal bowel sounds; abdomen not distended Percussion/Palpation: abdomen soft; abdomen nontender Musculoskeletal: No acute arthritis in any joint Neurologic: Alert, awake and oriented x3. Generally weak Psychiatric: A+Ox3, euthymic affect Lymphatic: no cervical or axillary lymphadenopathy Results & Data Results & Data [facility] Vital Signs (Past 12 Hours) Vital Signs Temp Pulse Pulse Resp BP Pulse Ox O2 Del Method 10/05/21 11:20 36.6 C 70 19 125/63 95 Room Air 10/05/21 09:37 Room Air 10/05/21 08:22 36.8 C 77 19 163/74 H 93 Room Air 10/05/21 07:47 74 10/05/21 02:50 36.7 C 73 20 168/67 H 94 Room Air Laboratory Results Short CBC 10/05/21 Range/Units 05:54 WBC 6.87 (4.8-10.8) K/ul Hgb 8.1 L (12.0-16.0) g/dl Hct 26.5 L (34.1-44.9) % Plt Count 235 (130-400) K/uL Medications Administered Current Inpatient Medications Acetaminophen (Acetaminophen 325 Mg Tab) 650 mg PO Q4H PRN PRN Reason: Pain Stop: 11/01/21 20:54 Amiodarone HCl (Amiodarone 200 Mg Tab) [facility] [place] Stop: 11/02/21 08:59 Last Admin: 10/05/21 08:23 Dose: 200 mg Aspirin (Aspirin 81 Mg Ectab) 81 mg PO QAM [facility] Stop: 11/02/21 08:59 Last Admin: 10/05/21 08:25 Dose: 81 mg Benzonatate (Benzonatate 100 Mg Capsule) 100 mg PO TID PRN PRN Reason: cough Stop: 11/01/21 20:54 Calcium Carbonate (Calcium Carbonate 1250mg Tab) 1,250 mg PO BID [facility] Stop: 11/01/21 20:59 Last Admin: 10/05/21 08:22 Dose: 1,250 mg Cetirizine HCl (Cetirizine Hcl 10 Mg Tablet) 10 mg PO QAM [facility] Stop: 11/02/21 08:59 Last Admin: 10/05/21 08:23 Dose: 10 mg Docusate Sodium (Docusate Sodium 100 Mg Cap) 100 mg PO BID [facility] Stop: 11/01/21 20:59 Last Admin: 10/05/21 08:22 Dose: 100 mg Donepezil HCl (Donepezil Hcl 5 Mg Tab) 5 mg PO BID [facility] Stop: 11/01/21 20:59 Last Admin: 10/05/21 08:22 Dose: 5 mg Ferrous Sulfate (Ferrous Sulfate 325 Mg Tab) 325 mg PO QAM [facility] Stop: 11/02/21 08:59 Last Admin: 10/05/21 08:23 Dose: 325 mg Furosemide (Furosemide 40 Mg Tab) 40 mg PO QAM [facility] Stop: 11/02/21 08:59 Last Admin: 10/05/21 08:25 Dose: 40 mg Heparin Sodium (Porcine) (Heparin Sod 5,000 Unit/0.5 Ml Vial) 5,000 units SQ Q8 [facility] Stop: 11/01/21 21:59 Last Admin: 10/05/21 05:53 Dose: 5,000 units Lidocaine (Lidocaine 5% 1 Patch) 1 patch TD HS [facility] Stop: 11/01/21 21:14 Last Admin: 10/04/21 21:14 Dose: 1 patch Lorazepam (Lorazepam 0.5 Mg Tab) 0.5 mg PO TID@0630,1500,2000 [facility] Stop: 11/01/21 20:59 Last Admin: 10/05/21 05:52 Dose: 0.5 mg Losartan Potassium (Losartan Potassium 25 Mg Tab) 25 mg PO QAM [facility] Stop: 11/02/21 08:59 Last Admin: 10/05/21 08:24 Dose: 25 mg Metoprolol Tartrate (Metoprolol Tartrate 25 Mg Tab) 12.5 mg PO BID [facility] Stop: 11/01/21 20:59 Last Admin: 10/05/21 08:25 Dose: 12.5 mg Miscellaneous (Remove Lidoderm Patch) 1 each N/A QAM [facility] Stop: 11/02/21 08:59 Last Admin: 10/05/21 08:26 Dose: 1 each Montelukast Sodium (Montelukast Sodium 10 Mg Tablet) 10 mg PO HS [facility] Stop: 11/01/21 20:59 Last Admin: 10/04/21 21:16 Dose: 10 mg Oxycodone HCl (Oxycodone Hcl Ir 5 Mg Tab (Immediate Release)) 5 mg PO Q4H PRN PRN Reason: Pain Stop: 10/16/21 20:54 Pantoprazole Sodium (Pantoprazole 40 Mg Tab) 40 mg PO BID [facility] Stop: 11/01/21 20:59 Last Admin: 10/05/21 08:25 Dose: 40 mg Potassium Chloride (Potassium Chloride Crtab 20 Meq Tabcr) 20 meq PO DAILY [facility] Stop: 11/02/21 08:59 Last Admin: 10/05/21 08:24 Dose: 20 meq Sertraline HCl (Sertraline Hcl 50 Mg Tablet) 150 mg PO QAM [facility] Stop: 11/02/21 08:59 Last Admin: 10/05/21 08:23 Dose: 150 mg Spironolactone (Spironolactone 12.5 Mg Tab) 12.5 mg PO QAM [facility] Stop: 11/02/21 08:59 Last Admin: 10/05/21 08:24 Dose: 12.5 mg Umeclidinium/Vilanterol (Umeclidinium/Vilanterol 62.5/25mcg 7 Puffs/Inhaler) 1 puffs INH QAM [facility] Stop: 11/02/21 08:59 Last Admin: 10/05/21 08:26 Dose: 1 puffs
--- NOTE | 2021-10-05 13:58 | Discharge Summary ---
Date of Service October 05, 2021 Admission HPI Per Admitting Provider This patient is a 89 y/o female who presented from [facility] s/p fall this AM. comes in after falling around 4:00 in the morning.No syncope noted; claims to have lost her balance, but denies hitting her head. She complained of rib painhe injured her left elbow as well. No blood or melena in her stool no dysuria hematuria no focal numbness or weakness hurts worse with movement. Looking through her chart she does have a history of significant anemia and her last hemoglobin was checked at 7, but is now 8.She has a significant past medical history of left breast cancer status post left radical mastectomy, radiation pneumonitis, concerning right upper lobe lesion for possible carcinoma status post empiric radiation, asthmaCOPD, HTN, PAF, and anemia. Of significance patient was hospitalized 06/24 to 06/29/2021, and most recently 07/06- 07/09 for SOB and secondary to acute HFpEF. She underwent thoracentesis on right at 800 mL. It was transudative and negative for malignancy. During hospitalization she did develop A. fib with RVR for approximately 4 hours.She was not started on anticoagulant secondary to anemia and bleeding risk. Pt has senile degeneration of the brain and is able to communicate, but is a poor historian overall. She does deny SOB, MILNER, dizziness, abdominal pain, cp, palpitations, bowel changes, appetite changes. Patient will be admitted under hospitalist service for further management. Admission Exam Per Admitting Provider Physical Exam: Neuro: AAOx4, no aphagia, memory changes, CNII-XII grossly intact HEENT: head normocephalic, moist mucus membranes CV: S1/S2, (-) M/G/R, (-) edema, cap refill < 3 seconds Resp: Lungs CTA in all croft, some expiratory wheezing. On RA GI: Abdomen S/NT/ND, Ax4 bowel sounds, (-) CVA tenderness Musculoskeletal: /5 B/L UE strength, /5 B/L LE strength. uses a walker. (+) tenderness L3-4 area and in sacral region Skin: (-) rashes , (-) erythema. Psych: euthymic mood Principal Diagnosis Status post fall with fracture of thoracic spine and sacral fracture at the leve l of S4, anxiety and depression, PAF, hypertension Discharge Exam Lying in bed comfortably Constitutional + ill appearing and average body habitus Eyes PERRL, conjunctivae normal, anicteric sclerae ENMT external ear and nose normal, oropharynx normal Neck trachea midline, no thyromegaly Respiratory no respiratory distress Auscultation: lungs clear to auscultation bilaterally Cardiovascular Rate/Rhythm: regular rate and regular rhythm Heart Sounds: normal S1, normal S2 and + murmur Extremities: no edema Gastrointestinal (Abdomen) Inspection/Auscultation: normal bowel sounds; abdomen not distended Percussion/Palpation: abdomen soft; abdomen nontender Psychiatric A+Ox3, euthymic affect Lymphatic no cervical or axillary lymphadenopathy Discharge Data Allergies Allergy/AdvReac Type Severity Reaction Status Date / Time bee venom protein (honey bee) Allergy Severe ANAPHYLAXIS Verified 10/02/21 17:08 Consultations 10/02/21 17:17 ED Decision to Admit Stat 10/03/21 08:12 Consult Orthopedic Surgery Routine Ordered Studies 10/02/21 14:15 CT abd pelvis IV con only Stat CT chest diagnostic w con Stat CT lumbar spine w con Stat 10/03/21 08:26 CT thoracic spine wo con Routine Hospital Course (1) Fall: -s/p getting up out of her bed in the middle of the night as she thought someone was knocking on her door. -The fall is likely secondary to postural hypotension/mechanical -Will get orthostatic vitals Fracture of thoracic spine and Sacral fracture at the level of S4 -Osteoporotic fractures, of T11 and S4 in the setting of ground level fall in underweight, elderly female. -X-ray obtained with results indicating an acute mild superior endplate compression fracture at T11 with 4 mm of retropulsion mild central canal narrowing, an acute nondisplaced sacral fracture at the S4 level. -She is not on any bisphosphonates; will add Ca+/VitaminD -Last Dexa 2018; did show some worsening in the left hip area although the low lumbar area remained unchanged. -Pt was on Alendronate prior and it was stopped by PCP to avoid increased frag ility syndrome. -Appreciate Ortho input and recommendation -Diet has been started -We will have a back brace fitted and continue with PT and OT -Has been getting physical therapy with back brace on and she has been doing much better with it -Still has some pain but will be discharged to [facility] this afternoon to continue with physical therapy (2) Hypokalemia: K+ 3.1 on admission. Will replace with Potassium 40mEq PO once now and recheck in AM. Pt takes KCL 10mEq PO daily; increased to 20. No ectopy or arrhythmia. IV repletion if no improved response Consider reassessing her home diuretics as her hospital course progresses. She's on oral K+, Aldactone, and Lasix. Potassium level has been normalized (3) Cancer: s/p left mastectomy for left breast carcinoma hx of lung carcinoma s/p XRT with history of radiation pneumonitis CT finding of 7 mm soft tissue nodule within the anterior wall of the bladder: Follow-up urology consultation recommended to exclude the possibility of a bladder lesion. Recommend outpatient Urology follow up. . (4) Anemia of chronic disease: Hemoglobin 7.0 on 09/22/2021 and on admission it was 8.0 and today on 10/03/2021- 8.5 Unspecified, microcytic Hemoccult ordered. Pt denies any nasima red or black/tarry stools. 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 Had a thoracentesis for large pleural effusion in June; 700 ml removed, non malignant. No acute exacerbation. (11) Chronic heart failure with preserved ejection fraction: no LE swelling Recent admission with acute on chronic CHF Hgb 8.0; consider transfusion should patient become symptomatic. Continue PO Lasix Continue metoprolol and Aldactone Recent echocardiogram during last admission reviewed; EF 65 to 70%, left atrium severely dilated, mild MS, mild TR, moderate MR, severe pulmonary hypertension monitor on tele. Plan Dispo: Code: DNR/DNI PCP: Dr. Sun Plan to return to [facility] Total Time Total Time Spent Total Time Spent (In Minutes): 35 minutes Discharge Plan Discharge Items Patient Disposition: Personal Long Term Reason For Visit: FALL Discharge Diagnosis: Status post fall with fracture of thoracic spine and sacral fracture at the level of S4, anxiety and depression, PAF, hypertension Condition on Discharge: Fair Activity: Resume your previous activity Activity Comment: Continue physical therapy Non-emergency contact: Primary Care Provider Call non-emergency contact if: you have any medication questions and your symptoms worsen Follow-up/Referrals: Bear Rodriguez MD [Outside Practitioners] - (Date & Time 10/12/2021 10:20 AM Provider Bear Rodriguez MD [facility] ) [facility] [Primary Care Provider] - Diet: Heart Healthy Addtl Attending Provider Instructions: Please take precautions to avoid falls Continue physical therapy as advised Please keep appointments with your healthcare providers Please try to use narcotics cautiously to avoid confusion, drowsiness and constipation Pending Studies at Discharge: No Stand-Alone Forms: [place]on[place]ister, Smoking Cessation Skilled Items Patient informed of condition?: Yes DNR: Yes Discharge Level of Care: Skilled Communicable Disease: No Discharge Prognosis: Stable Lines: None Urinary Catheter: No Medications and DC Order Prescriptions: New lidocaine 5 % Adhesive Patch,Medicated 1 patch transdermal HS 30 Days Qty: 30 0RF ferrous sulfate 325 mg (65 mg iron) Tablet,Delayed Release (Dr/Ec) 325 mg PO QAM 30 Days Qty: 30 0RF oxycodone 5 mg Tablet 5 mg PO Q4H PRN (Reason: pain) 5 Days Qty: 14 0RF Continued losartan 25 mg Tablet 25 mg PO QAM aspirin 81 mg Tablet,Delayed Release (Dr/Ec) 81 mg PO QAM Stiolto Respimat 2.5-2.5 mcg/actuation Mist 1 puff INHALATION QAM montelukast 10 mg tablet 10 mg PO HS Rx Instructions: TAKE 1 TABLET BY MOUTH EVERYDAY AT BEDTIME acetaminophen [Tylenol] 325 mg Tablet 650 mg PO Q4H PRN (Reason: Pain) donepezil 5 mg Tablet 5 mg PO BID lorazepam 0.5 mg Tablet 0.5 mg PO TID Rx Instructions: TAKES AT 0630, 1500 & 2000. docusate sodium [Colace] 100 mg Capsule 100 mg PO BID calcium carbonate 500 mg calcium (1,250 mg) Tablet,Chewable 500 mg PO BID benzonatate 100 mg capsule 100 mg PO TID PRN (Reason: cough) Qty: 30 0RF cetirizine [Zyrtec] 10 mg Tablet 10 mg PO QAM amiodarone 200 mg tablet 200 mg PO QAM spironolactone 25 mg tablet 12.5 mg PO QAM pantoprazole 40 mg tablet,delayed release (DR/EC) 40 mg PO BID metoprolol tartrate 25 mg tablet 12.5 mg PO BID sertraline 100 mg tablet 150 mg PO QAM furosemide 40 mg Tablet 40 mg PO QAM Qty: 30 0RF potassium chloride 10 mEq Tablet,Er Particles/Crystals 10 meq PO DAILY Qty: 30 0RF Discharge Orders: Discharge Order (Routine); Ordered 10/05/21 Ordered By: Isaura Pretty Admission Data Admit Date/Time: 10/02/21 18:02 Attending Provider: Isaura Pretty Admit Provider: Isaura Pretty [facility] Other Providers: Isaura Pretty ; Amilcar Hurley Other Interventions: Discharge Summary Assessment (RN) Last Done: 10/05/21 14:12
== END 2021-10-05 15:00 | disposition home or self-care (01) | DRG 543 ==
LOC: ED 13:38 → 2N 18:02

== ENCOUNTER 2021-11-12 12:09 | Inpatient (IN) ==
--- NOTE | 2021-11-12 12:17 | Emergency Department Note ---
Impression & Plan Hypoxia, COPD (chronic obstructive pulmonary disease), Chest pain, COVID-19 ED Provider Note NAME: NALLELY NOBLE AGE: 89 SEX: F : 1930 ARRIVES VIA: Ambulance INFORMANT: Patient, ED PROVIDER(S): Armin Vegas MD Chief Complaint: Shortness of breath, chest pain HPI: Patient presents due to concern for shortness of breath and chest pain over the last 1 day. The patient did notice some swelling of the ankles about 3 days prior. The patient did receive an albuterol treatment around has a room air sat was 88%. The patient does not have any breathing treatments and does not use oxygen with any regularity at home. The patient did not take her morning medications. Patient denies any fevers or chills. The patient is presenting from home. The patient does take a diuretic. Patient did have some nausea but no vomiting. The patient did complain of some central chest pain that was nonradiating. Patient states that it did improve with the albuterol treatment. Patient denies any recent falls or trauma. ROS: See HPI for pertinent positives and negatives. A total of 10 systems were reviewed and otherwise negative. Past medical history: See below Surgical history: See below Social history: See below Physical Exam: GENERAL: NAD, wearing a mask, non-toxic. EYE EXAM: Normal conjunctiva. PERRL, no anisocoria and EOM's grossly intact w/o pain. NECK: Supple, no nuchal rigidity, no adenopathy, non-tender. No signs of meningismus. FROM of the neck with good chin to chest and neck extension. No stridor. Chest: Healed mastectomy scars. LUNGS: Clear to auscultation. Normal chest wall mechanics. HEART: NSR, no MRG. ABDOMEN: Abdomen soft, non-tender, normo-active bowel sounds, no masses, no rebound or guarding. BACK: No CVA TTP. SKIN: No rashes and no bruising. UPPER EXTREMITIES: Upper extremities are grossly normal. LOWER EXTREMITIES: Grossly normal, scant lower pretibial edema, negative Homans' sign bilaterally. NEURO EXAM: A&O x3, cranial nerves II-XII grossly intact, normal speech, moves all 4 extremities. Differential diagnoses: Reactive airway disease, pneumonia, pneumothorax, COPD, CHF, infections, cardiac ischemia, pulmonary embolism, musculoskeletal, gastrointestinal, as well as other pathologies. Course: Patient was seen and evaluated the bedside. Full history physical exam was performed. EKG interpreted by me Normal sinus rhythm, rate of 72, normal intervals, normal axis, no ST elevations. Imaging Studies: See Below Cardiac monitoring: An order was placed for continuous cardiac monitoring. The monitor shows a rate of 77 with sinus rhythm. MDM: Patient was seen due to concern for shortness of breath and chest pain. Blood work obtained along with an EKG troponin and BNP. The patient was ordered neb treatment methylprednisolone and magnesium. COVID swab was ordered. Patient did present due to concern for weakness and shortness of breath. The patient did have blood work completed along with an EKG troponin chest x-ray. Patient did receive a dose of Lasix in addition to losartan as these are home medications and the patient had not taken her home meds this morning. The patient has a normal white count with anemia hemoglobin of 7.8 which is relatively chronic and stable. Platelet count is normal. Kidney function unremarkable. But with prerenal azotemia. Troponin is slightly elevated at 15.9. Has been slightly lower before. The patient has had no further hypoxia within the department. Given the patient's significant weakness and fatigue do believe the patient would benefit from inpatient treatment at this time. I did speak the on-call hospitalist Dr. Matthew and the patient was admitted to the medicine service. Patient was noted to be COVID-positive but did receive a dose of IV methylprednisolone due to the patient's prior history of COPD and hypoxemia. Critical Care: I have personally spent 35 minutes of critical care time in direct management of this patient. This includes bedside care, interpretation of diagnostic studies, and testing, discussion with consultants, patient, and family members, and other require inpatient management activities. This 35 minutes is in excess of all separately billable procedures. Past Med/Surg History Medical History Abnormal CT of the chest Anemia of chronic disease Anxiety Anxiety Asthma USING RESCUE INHALER FREQUENTLY/DAILY Asthma-COPD overlap syndrome Cancer BREAST CANCER-LEFT MASTECTOMY Chronic obstructive pulmonary disease COPD (chronic obstructive pulmonary disease) COVID-19 Deep vein thrombosis 15 YEARS AGO S/P LEG SURGERY Dysphagia HX ESOPHAGEAL STRETCHING Fall GERD (gastroesophageal reflux disease) History of pulmonary embolism HTN (hypertension) Hypertension Osteoarthritis PAF (paroxysmal atrial fibrillation) Prolapsed bladder Pulmonary nodule, right Rectal bleeding Senile degeneration of brain Surgical History History of cataract surgery RT/LEFT History of colonoscopy History of esophagogastroduodenoscopy (EGD) History of mastectomy LEFT (NO BP/LAB DRAWS) History of tonsillectomy History of tooth extraction History of total hysterectomy with bilateral salpingo-oophorectomy (BSO) History of total knee replacement LEFT/RT Family History Other Family history non-contributory Social History Smoking Status: Never smoker Second Hand Exposure: No; Hx Alcohol Use: No Hx Substance Use: No Preferred Language: [place] Communication Ability: Effective House Superintendent Required: No Beliefs That Will Affect Care: Amish marital status: / Current Living Situation: Personal Care Facility Feels Safe at Home: Yes Childhood Exposure to Second-Hand Smoke: Yes Dental Care, Regularly: Yes Assistive Devices: Walker Allergies Allergies Allergy/AdvReac Type Severity Reaction Status Date / Time bee venom protein (honey bee) Allergy Severe ANAPHYLAXIS Verified 10/02/21 17:08 Home Meds Home Medications Medication Instructions Recorded Confirmed losartan 25 mg tablet 25 mg PO QAM 03/07/18 11/12/21 aspirin 81 mg tablet,delayed 81 mg PO QAM 04/30/21 11/12/21 release montelukast 10 mg tablet 10 mg PO HS 04/30/21 11/12/21 tiotropium 2.5 mcg-olodaterol 2.5 1 puff inhalation QA 04/30/21 11/12/21 mcg/actuation mist for inhalation (Stiolto Respimat) acetaminophen 325 mg tablet 650 mg PO Q4H PRN Pain 06/24/21 11/12/21 (Tylenol) calcium carbonate 500 mg calcium 500 mg PO BID 06/24/21 11/12/21 (1,250 mg) chewable tablet docusate sodium 100 mg capsule 100 mg PO BID 06/24/21 11/12/21 (Colace) donepezil 5 mg tablet 5 mg PO BID 06/24/21 11/12/21 lorazepam 0.5 mg tablet 0.5 mg PO TID 06/24/21 11/12/21 sertraline 100 mg tablet 150 mg PO QAM 07/06/21 11/12/21 amiodarone 200 mg tablet 200 mg PO QAM 10/02/21 11/12/21 cetirizine 10 mg tablet (Zyrtec) 10 mg PO QAM 10/02/21 11/12/21 metoprolol tartrate 25 mg tablet 12.5 mg PO BID 10/02/21 11/12/21 pantoprazole 40 mg tablet,delayed 40 mg PO BID 10/02/21 11/12/21 release spironolactone 25 mg tablet 12.5 mg PO QAM 10/02/21 11/12/21 Previous Rx's Medication Instructions Recorded furosemide 40 mg tablet 40 mg PO QAM #30 tabs 07/09/21 potassium chloride 10 mEq 10 meq PO DAILY #30 tabs 07/09/21 tablet,extended release(part/cryst) benzonatate 100 mg capsule 100 mg PO TID PRN cough #30 caps 09/09/21 Results & Data (ED) Vital Signs Vital Signs - 24 hr 11/12/21 12:15 11/12/21 12:15 11/12/21 12:15 Temperature 36.7 C Temperature Source Oral Pulse Rate 72 Pulse Rate [Right Finger] Pulse Rhythm Regular Pulse Rhythm [Right Finger] Pulse Strength Normal Pulse Strength [Right Finger] Respiratory Rate 24 Respiratory Effort / Characteristics Non-Labored Non-Labored Spontaneous Respiratory Depth Normal Respiratory Pattern Regular Regular Blood Pressure 178/89 H Blood Pressure [Right Arm] Blood Pressure Mean 118 Blood Pressure Mean [Right Arm] Blood Pressure Position Lying Blood Pressure Position [Right Arm] Pulse Oximetry 100 Oxygen Delivery Method Room Air Room Air Sepsis Recent Fever Within 48 Hours No Sepsis New/Unexplained Change in Mental Status No Sepsis Action Taken by Nursing No Action Required 11/12/21 12:25 11/12/21 14:00 Temperature Temperature Source Pulse Rate Pulse Rate [Right Finger] 77 Pulse Rhythm Pulse Rhythm [Right Finger] Regular Pulse Strength Pulse Strength [Right Finger] Normal Respiratory Rate 18 Respiratory Effort / Characteristics Non-Labored Respiratory Depth Normal Respiratory Pattern Regular Blood Pressure Blood Pressure [Right Arm] 163/86 H Blood Pressure Mean Blood Pressure Mean [Right Arm] 111 Blood Pressure Position Blood Pressure Position [Right Arm] Lying Pulse Oximetry 99 Oxygen Delivery Method Room Air Room Air Sepsis Recent Fever Within 48 Hours Sepsis New/Unexplained Change in Mental Status Sepsis Action Taken by Prison Medications Current Medication List: was personally reviewed by me Laboratory Data Attestation: I reviewed the patient's lab results. Result diagrams: 11/12/21 12:30 11/12/21 12:30 Lab Results 11/12/21 11/12/21 11/12/21 Range/Units 12:30 12:30 12:30 WBC 5.88 (4.8-10.8) K/ul RBC 3.34 L (3.93-5.22) M/uL Hgb 7.8 L (12.0-16.0) g/dl Hct 27.4 L (34.1-44.9) % MCV 82.0 (80.0-100.0) fL MCH 23.4 L (25.0-34.0) pg MCHC 28.5 L (32.0-36.0) g/dL RDW Std Deviation 51.2 H (36.4-46.3) fL RDW Coeff of [place] 17.1 H (11.5-14.5) % Plt Count 300 (130-400) K/uL MPV 10.9 (9.4-12.3) fL Immature Gran % (Auto) 0.3 % Neut % (Auto) 84.2 % Lymph % (Auto) 6.8 % Bureau % (Auto) 8.0 % Eos % (Auto) 0.2 % Baso % (Auto) 0.5 % Neut # (Auto) 4.95 (1.4-6.5) K/uL Lymph # (Auto) 0.40 L (1.2-3.4) K/uL Bureau # (Auto) 0.47 (0.24-0.82) K/uL Eos # (Auto) 0.01 (0-0.50) K/uL Baso # (Auto) 0.03 (0-0.2) K/uL Immature Gran # (Auto) 0.02 (0.00-0.02) K/uL Polychromasia 2+ Ovalocytes 1+ PT 11.4 (9.0-12.0) Seconds INR 1.1 (0.9-1.1) APTT 23.9 (21.0-31.0) Seconds PTT Ratio 0.9 Sodium 137 (136-145) mmol/L Potassium 3.8 (3.5-5.1) mmol/L Chloride 100 (98-107) mmol/L Carbon Dioxide 30 (21-32) mmol/L Anion Gap 7 (3-11) BUN 22 (6-23) mg/dl Creatinine 0.79 (0.6-1.2) mg/dl Est Cr Clr Drug Dosing 41.0 ml/min Est GFR ( Amer) 76.9 ml/min Est GFR (Non-Af Amer) 66.4 ml/min BUN/Creatinine Ratio 27.8 H (10-20) Glucose 101 H (70-99(Fasting)) mg/dl Calcium 8.6 (8.5-10.1) mg/dl Magnesium 1.9 (1.7-2.4) mg/dl Ferritin (8-388) ng/ml Total Bilirubin 0.4 (0.2-1.0) mg/dl AST 18 (13-39) U/L ALT 11 (7-52) U/L Alkaline Phosphatase 87 (34-104) U/L Troponin I High Sens 15.9 H (0-14) pg/ml B-Natriuretic Peptide (0-100) pg/ml Total Protein 6.1 (6.0-8.3) gm/dl Albumin 3.9 (3.4-5.0) gm/dl Globulin 2.2 L (2.5-4.0) gm/dl Albumin/Globulin Ratio 1.8 (0.9-2) Lipase 52 (11-82) U/L 11/12/21 11/12/21 Range/Units 12:30 12:49 WBC (4.8-10.8) K/ul RBC (3.93-5.22) M/uL Hgb (12.0-16.0) g/dl Hct (34.1-44.9) % MCV (80.0-100.0) fL MCH (25.0-34.0) pg MCHC (32.0-36.0) g/dL RDW Std Deviation (36.4-46.3) fL RDW Coeff of [place] (11.5-14.5) % Plt Count (130-400) K/uL MPV (9.4-12.3) fL Immature Gran % (Auto) % Neut % (Auto) % Lymph % (Auto) % Bureau % (Auto) % Eos % (Auto) % Baso % (Auto) % Neut # (Auto) (1.4-6.5) K/uL Lymph # (Auto) (1.2-3.4) K/uL Bureau # (Auto) (0.24-0.82) K/uL Eos # (Auto) (0-0.50) K/uL Baso # (Auto) (0-0.2) K/uL Immature Gran # (Auto) (0.00-0.02) K/uL Polychromasia Ovalocytes PT (9.0-12.0) Seconds INR (0.9-1.1) APTT (21.0-31.0) Seconds PTT Ratio Sodium (136-145) mmol/L Potassium (3.5-5.1) mmol/L Chloride (98-107) mmol/L Carbon Dioxide (21-32) mmol/L Anion Gap (3-11) BUN (6-23) mg/dl Creatinine (0.6-1.2) mg/dl Est Cr Clr Drug Dosing ml/min Est GFR ( Amer) ml/min Est GFR (Non-Af Amer) ml/min BUN/Creatinine Ratio (10-20) Glucose (70-99(Fasting)) mg/dl Calcium (8.5-10.1) mg/dl Magnesium (1.7-2.4) mg/dl Ferritin 30.9 (8-388) ng/ml Total Bilirubin (0.2-1.0) mg/dl AST (13-39) U/L ALT (7-52) U/L Alkaline Phosphatase (34-104) U/L Troponin I High Sens (0-14) pg/ml B-Natriuretic Peptide 825 H (0-100) pg/ml Total Protein (6.0-8.3) gm/dl Albumin (3.4-5.0) gm/dl Globulin (2.5-4.0) gm/dl Albumin/Globulin Ratio (0.9-2) Lipase (11-82) U/L Administered Medications Remdesivir 200 mg/ Sodium (Chloride) 250 mls @ 125 mls/hr IV TODAY@1800 ONE; Protocol Stop: 11/12/21 19:59 Last Admin: 11/12/21 19:08 Dose: 125 mls/hr Documented By: JSG Discontinued Medications Albuterol (Albut/Ipratrop 3mg/0.5mg Neb 3 Ml Vial) 3 ml NEB NOW STA; Protocol Stop: 11/12/21 12:25 Last Admin: 11/12/21 12:51 Dose: 3 ml Documented By: AP Furosemide (Furosemide Inj 20 Mg/2 Ml Vial) 20 mg IV ONE ONE Stop: 11/12/21 12:31 Last Admin: 11/12/21 12:51 Dose: 20 mg Documented By: AP Magnesium Sulfate/Dextrose (Magnesium Sulfate / D5w) 1 gm in 100 mls @ 100 mls/hr IV NOW STA Stop: 11/12/21 13:25 Last Infusion: 11/12/21 13:59 Dose: 0 mls/hr Documented By: Admin: 11/12/21 12:51 Dose: 100 mls/hr Documented By: AP Losartan Potassium (Losartan Potassium 25 Mg Tab) 25 mg PO NOW STA Stop: 11/12/21 12:31 Last Admin: 11/12/21 14:21 Dose: 25 mg Documented By: AP Methylprednisolone (Methylprednisolone 125 Mg/2 Ml Vial) 60 mg IV NOW STA Stop: 11/12/21 12:25 Last Admin: 11/12/21 12:51 Dose: 60 mg Documented By: AP Imaging Data Radiologist's Impression: Chest X-Ray 11/12/21 12:25 XR chest 1V portable CLINICAL HISTORY: Chest Pain TECHNIQUE: Single frontal radiograph of the chest was obtained. Comparison: Comparison is made to chest radiograph of 10/02/[address] chest dated 10/02/2021 FINDINGS: No lines and tubes are seen. Calcified aortic knob is seen. Left retrocardiac opacity is seen. There is mild pulmonary edema. Small bilateral pleural effusions are seen. Density in the right upper lung likely reflects loculated effusion. IMPRESSION: 1. Airspace opacity in the left lower lobe likely represents atelectasis with or without superimposed aspiration/pneumonia. 2. Small bilateral loculated effusions, similar in appearance to prior exam. ACT 112: Negative or not required by law. Electronically signed by: Rodríguez Villalta M.D. 11/12/2021 1:50 PM Discharge Plan Visit Data Chief Complaint: Shortness of Breath/Dyspnea Stated Complaint: SOB ED Provider: Armin Vegas Discharge Problem: Hypoxia, COPD (chronic obstructive pulmonary disease), Chest pain, COVID-19 Patient Disposition: Admitted As Inpatient Discharge Instructions Interventions: ED Discharge Assessment Last Done: 11/12/21 17:06
[2021-11-12] MEDS ORDERED: ALBUT/IPRATROP 3MG/0.5MG NEB 3 ML VIAL NEB STA (12:24)
[2021-11-12] MEDS ORDERED: methylPREDNISolone 125 MG/2 ML VIAL IV STA (12:24)
[2021-11-12] MEDS ORDERED: MAGNESIUM SULFATE / D5W 1 GM/100 ML BAG IV STA (12:26)
[2021-11-12] MEDS ORDERED: LOSARTAN POTASSIUM 25 MG TAB PO STA (12:30)
[2021-11-12] MEDS ORDERED: FUROSEMIDE INJ 20 MG/2 ML VIAL IV ONE (12:30)
[2021-11-12 13:08] LABS: INR 1.1 (0.9-1.1); Partial Thromboplastin Ratio 0.9; Partial Thromboplastin Time 23.9 Seconds (21.0-31.0); Prothrombin Time 11.4 Seconds (9.0-12.0)
[2021-11-12 13:25] LABS: Troponin I High Sensitivity 15.9 pg/ml (0-14)
[2021-11-12 13:27] LABS: Basophils # (auto) 0.03 K/uL (0-0.2); Basophils % (auto) 0.5 %; Eosinophils # (auto) 0.01 K/uL (0-0.50); Eosinophils % (auto) 0.2 %; Hematocrit (blood only) 27.4 % (34.1-44.9); Hemoglobin 7.8 g/dl (12.0-16.0); Immature Granulocytes # (auto) 0.02 K/uL (0.00-0.02); Immature Granulocytes % (auto) 0.3 %; Lymphocytes % (auto) 6.8 %; Mean Corpuscular Hemoglobin 23.4 pg (25.0-34.0); Mean Corpuscular Hgb Conc 28.5 g/dL (32.0-36.0); Mean Platelet Volume 10.9 fL (9.4-12.3); Monocytes # (auto) 0.47 K/uL (0.24-0.82); Neutrophils # (auto) 4.95 K/uL (1.4-6.5); Neutrophils % (auto) 84.2 %; Ovalocytes 1+; Platelet Count 300 K/uL (130-400); Polychromasia 2+; RDW Coefficient of Variation 17.1 % (11.5-14.5); RDW Standard Deviation 51.2 fL (36.4-46.3); Red Blood Count 3.34 M/uL (3.93-5.22); White Blood Count 5.88 K/ul (4.8-10.8)
[2021-11-12 13:31] LABS: Albumin Globulin Ratio 1.8 (0.9-2); Albumin Level 3.9 gm/dl (3.4-5.0); BUN Creatinine Ratio 27.8 (10-20); Bilirubin,Total 0.4 mg/dl (0.2-1.0); Calcium 8.6 mg/dl (8.5-10.1); Est GFR (African American) 76.9 ml/min; Est GFR (Non-African American) 66.4 ml/min; Globulin 2.2 gm/dl (2.5-4.0); Magnesium 1.9 mg/dl (1.7-2.4); Potassium 3.8 mmol/L (3.5-5.1); Total Protein 6.1 gm/dl (6.0-8.3)
--- NOTE | 2021-11-12 13:52 | XRay Report ---
XR chest 1V portable CLINICAL HISTORY: Chest Pain TECHNIQUE: Single frontal radiograph of the chest was obtained. Comparison: Comparison is made to chest radiograph of 10/02/[address] chest dated 10/02/2021 FINDINGS: No lines and tubes are seen. Calcified aortic knob is seen. Left retrocardiac opacity is seen. There is mild pulmonary edema. Small bilateral pleural effusions are seen. Density in the right upper lung likely reflects loculated effusion. IMPRESSION: 1. Airspace opacity in the left lower lobe likely represents atelectasis with or without superimpose d aspiration/pneumonia. 2. Small bilateral loculated effusions, similar in appearance to prior exam. ACT 112: Negative or not required by law. Electronically signed by: Rodríguez Villalta M.D. 11/12/2021 1:50 PM
--- NOTE | 2021-11-12 14:09 | History & Physical Report ---
Date of Service November 12, 2021 Assessment & Plan (1) COPD (chronic obstructive pulmonary disease): (2) COVID-19: (3) Chronic heart failure with preserved ejection fraction: (4) HTN (hypertension): (5) Anemia of chronic disease: (6) Senile degeneration of brain: (7) Breast cancer, left: Plan Ms. Arevalo is an 89 year old female that presented to the [facility] from [facility] with increased SOB and weakness that has been occuring over the past 3 days. + orthopnea over past 24 hours. She has a significant past medical history of left breast cancer s/p left radical mastectomy, radiation pneumonitis, concerning right upper lobe lesion for possible carcinoma status post empiric radiation, asthmaCOPD, HTN, HFpEF, Senile Degeneration of the Brain, pAF, and anemia of chronic disease. COVID + in ED; discussed tx with Remdesivir with son, will proceed with treatment. Covid-19 Positive: Hypoxia A/C COPD exacerbation: CXR: LLL atelectasis without aspiration/PNA Covid positive in ED. Previously vaccinated. Received Solumedrol 60 mg once in ED Dexamethasone 6 mg daily Called pt sonHan to discuss tx d/t patient having some SDOB to discuss benefits of Remdesivir; 5 day course Family consented to both steroids and Remdesivir Last PFT's 04/2019: FEV1 1.17 Continue maintenance inhaler.; Megha Riddle Had a thoracentesis for large pleural effusion in June; 700 ml removed, non malignant. CXR in AM; D-Dimer ordered ISB ST consult placed due to patient stating she coughs when eating Continue COPD medications; Montelukast HFpEF: no LE swelling Recent admission with acute on chronic CHF Hgb 8.0; consider transfusion should patient become symptomatic. Continue PO Lasix Continue Metoprolol,Aldactone, Lasix and K+. Recent ECHO during last admission reviewed; Mild MS, TR, severe pHTN Monitor on M/S Tele Trend AM labs Troponin level 15.9; will trend BNP 829 HTN: continue losartan pAF: controlled on amiodarone and metoprolol 12.5 PO BID; continue Anemia of Chronic Disease: Unspecified, microcytic Hgb: 7.8; baseline: Hemoccult ordered. Pt denies any nasima red or black/tarry stools. OP Gi recommends PPI continuation; feels risk > benefit of scope at this point, normal egd in 2019 Ferritin level ordered; if low; consider IV Fe+ Senile Degeneration of the brain: Takes Aricept; continue Fast score: 6a Relatively independent with ADL's; however, seems more frail this admission PT/OT eval and treat orders placed; uses walker at baseline Left Breast Cancer: s/p left mastectomy hx of L breast ca hx of lung carcinoma s/p XRT hx of radiation pneumonitis Follow-up outpatient urology consultation recc to exclude the possibility of a bladder lesion; consider Urology consult if inpatient hospitalization prolonged Anxiety and Depression: Recent inpatient admission with OD with Ativan pt denies SI Continue Ativan 0.5 mg PO TID Continue Sertraline Disposition: Code: DNR/DNI PCP: Dr. Sun VTE Prophylaxis: Lovenox SQ /t COVID and fall risk with Heparin Point of Contact: Han Mauro: [phone] Plan to return to [facility] History of Present Illness Chief Complaint: dyspnea Primary Care Provider: [facility] Ms. Arevalo is an 89 year old female that presented to the [facility] from [facility] with increased SOB and weakness that has been occuring over the past 3 days. + orthopnea over past 24 hours. She has a significant past medical history of left breast cancer s/p left radical mastectomy, radiation p neumonitis, concerning right upper lobe lesion for possible carcinoma status post empiric radiation, asthmaCOPD, HTN, HFpEF, Senile Degeneration of the Brain, pAF, and anemia of chronic disease. Pt with increasing inpatient hospitalizations 06/24 to 06/29/2021, 07/06-07/09 for SOB and secondary to acute HFpEF and most recently 10/02-10/05 s/p fall. She underwent thoracentesis on right at 800 mL in June and it was transudative and negative for malignancy. Pt has senile degeneration of the brain and is able to communicate, but is a poor historian overall. She does deny SOB, MILNER, dizziness, abdominal pain, CP, palpitations, bowel changes, appetite changes. Patient appears more frail than previous encounters. Patient did test positive for COVID-19 in the ED and was placed on airborne precautions. Patient will be admitted under hospitalist service for further management. Allergies Allergy/AdvReac Type Severity Reaction Status Date / Time bee venom protein (honey bee) Allergy Severe ANAPHYLAXIS Verified 10/02/21 17:08 Home Medications Medication Instructions Recorded Confirmed Type losartan 25 mg tablet 25 mg PO QAM 03/07/18 11/12/21 History aspirin 81 mg tablet,delayed 81 mg PO QAM 04/30/21 11/12/21 History release montelukast 10 mg tablet 10 mg PO HS 04/30/21 11/12/21 History tiotropium 2.5 mcg-olodaterol 2.5 1 puff inhalation QAM 04/30/21 11/12/21 History mcg/actuation mist for inhalation (Stiolto Respimat) acetaminophen 325 mg tablet 650 mg PO Q4H PRN Pain 06/24/21 11/12/21 History (Tylenol) calcium carbonate 500 mg calcium 500 mg PO BID 06/24/21 11/12/21 History (1,250 mg) chewable tablet docusate sodium 100 mg capsule 100 mg PO BID 06/24/21 11/12/21 History (Colace) donepezil 5 mg tablet 5 mg PO BID 06/24/21 11/12/21 History lorazepam 0.5 mg tablet 0.5 mg PO TID 06/24/21 11/12/21 History sertraline 100 mg tablet 150 mg PO QAM 07/06/21 11/12/21 History furosemide 40 mg tablet 40 mg PO QAM #30 tabs 07/09/21 11/12/21 Rx potassium chloride 10 mEq 10 meq PO DAILY #30 tabs 07/09/21 11/12/21 Rx tablet,extended release(part/cryst) benzonatate 100 mg capsule 100 mg PO TID PRN cough #30 caps 09/09/21 11/12/21 Rx amiodarone 200 mg tablet 200 mg PO QAM 10/02/21 11/12/21 History cetirizine 10 mg tablet (Zyrtec) 10 mg PO QAM 10/02/21 11/12/21 History metoprolol tartrate 25 mg tablet 12.5 mg PO BID 10/02/21 11/12/21 History pantoprazole 40 mg tablet,delayed 40 mg PO BID 10/02/21 11/12/21 History release spironolactone 25 mg tablet 12.5 mg PO QAM 10/02/21 11/12/21 History Past Med/Surg History Medical History (Updated 11/12/21 @ 14:41 by TEVIN Winchester) Abnormal CT of the chest Anemia of chronic disease Anxiety Anxiety Asthma USING RESCUE INHALER FREQUENTLY/DAILY Asthma-COPD overlap syndrome Cancer BREAST CANCER-LEFT MASTECTOMY Chronic obstructive pulmonary disease COPD (chronic obstructive pulmonary disease) COVID-19 Deep vein thrombosis 15 YEARS AGO S/P LEG SURGERY Dysphagia HX ESOPHAGEAL STRETCHING Fall GERD (gastroesophageal reflux disease) History of pulmonary embolism HTN (hypertension) Hypertension Osteoarthritis PAF (paroxysmal atrial fibrillation) Prolapsed bladder Pulmonary nodule, right Rectal bleeding Senile degeneration of brain Surgical History History of cataract surgery RT/LEFT History of colonoscopy History of esophagogastroduodenoscopy (EGD) History of mastectomy LEFT (NO BP/LAB DRAWS) History of tonsillectomy History of tooth extraction History of total hysterectomy with bilateral salpingo-oophorectomy (BSO) History of total knee replacement LEFT/RT Family History Other Family history non-contributory Social History Smoking Status: Never smoker Second Hand Exposure: No; Hx Alcohol Use: No Hx Substance Use: No Preferred Language: Persian Communication Ability: Effective Hypo Dipper Required: No Beliefs That Will Affect Care: Scientologist marital status: / Current Living Situation: Personal Care Facility Feels Safe at Home: Yes Childhood Exposure to Second-Hand Smoke: Yes Dental Care, Regularly: Yes Assistive Devices: Walker Review of Systems Review of Systems: Neuro: (-) Falls, trauma, slurred speech HEENT: (-) MILNER, dizziness, dysphagia, visual or auditory changes CV: (-) CP, palpitations, swelling Resp: (-) SOB GI: (-) appetite changes, N/V/D, bowel changes : (-) urinary changes Skin: (-) rashes Psych: (-) anxiety, depression Physical Exam Physical Exam: Neuro: AAOx4, PERRLA, no aphagia, memory changes, CNII-XII grossly intact. Poor historian HEENT: head normocephalic, moist mucus membranes CV: S1/S2, (-) M/G/R, (-) edema, cap refill < 3 seconds Resp: 2LNC; some wheezes in bases. GI: Abdomen S/NT/ND, Ax4 bowel sounds, (-) CVA tenderness Musculoskeletal: 5/5 B/L UE strength, 5/5 B/L LE strength. No gait disturbance Skin: (-) rashes , (-) erythema. Psych: euthymic mood; confused Results & Data Results & Data ([facility]) Vital Signs (Past 12 Hours) Vital Signs Temp Pulse Resp BP Pulse Ox O2 Del Method 11/12/21 12:25 Room Air 11/12/21 12:15 Room Air 11/12/21 12:15 36.7 C 72 24 178/89 H 100 Room Air Laboratory Results Short CBC 11/12/21 Range/Units 12:30 WBC 5.88 (4.8-10.8) K/ul Hgb 7.8 L (12.0-16.0) g/dl Hct 27.4 L (34.1-44.9) % Plt Count 300 (130-400) K/uL BMP 11/12/21 12:30 Sodium 137 Potassium 3.8 Chloride 100 Carbon Dioxide 30 BUN 22 Creatinine 0.79 Glucose 101 H Calcium 8.6 Liver Function 11/12/21 Range/Units 12:30 Total Bilirubin 0.4 (0.2-1.0) mg/dl AST 18 (13-39) U/L ALT 11 (7-52) U/L Alkaline Phosphatase 87 (34-104) U/L Albumin 3.9 (3.4-5.0) gm/dl Diagnostic Findings Chest X-Ray 11/12/21 12:25 XR chest 1V portable CLINICAL HISTORY: Chest Pain TECHNIQUE: Single frontal radiograph of the chest was obtained. Comparison: Comparison is made to chest radiograph of 10/02/[address] chest dated 10/02/2021 FINDINGS: No lines and tubes are seen. Calcified aortic knob is seen. Left retrocardiac opacity is seen. There is mild pulmonary edema. Small bilateral pleural effusions are seen. Density in the right upper lung likely reflects loculated effusion. IMPRESSION: 1. Airspace opacity in the left lower lobe likely represents atelectasis with or without superimposed aspiration/pneumonia. 2. Small bilateral loculated effusions, similar in appearance to prior exam. ACT 112: Negative or not required by law. Electronically signed by: Rodríguez Villalta M.D. 11/12/2021 1:50 PM ECG Additional Comments: NSR HR 78 NEFTALI 136 ms QRS 94 QTc 468 Code Status & VTE Plan Code Status DNR/DNI in the event of cardiac or respiratory arrest VTE Prophylaxis Plan VTE Prophylaxis will be ordered: Yes Supervising Physician Co-Signing Physician Notes Patient was seen and examined independently at bedside. Chart reviewed. Case discussed with Felicita ABARCA and agree with the documentation above with regards to HPI, Physical Exam and Assessment/Plan. In summary, this is a 89 year old female with multiple medical problems including PAfib, Obstructive lung disease, chronic diastolic CHF, Pulm HTN, resident of [place] who presented to the ED with chest tightness, cough, and shortness of breath for past 2-3 days, worst this morning and was also noted to have some wheezing. Patient is AAOx4 during my encounter, conversing appropriately and seems to be a fairly reliable historian. Tested positive for COVID in the ED, which she states was shocking news to her. States she never had COVID and has received 4 shots of COVID vaccine. Denies any fever, chills, N/V, chest pain. Denies any h/o NC or PE but states she has a h/o provoked DVT after knee surgery in the past and was on anticoagulation for a while. She denies any weight gain. States compliance to her medications. She felt better during my encounter with the EMT and the ED treatments. She currently denies any chest pain, SOB, tightness or other issues. States she had very little to eat and is hungry. She is lying comfortably in bed, on 2 L NC saturating around 95%, no respiratory distress. Chest clear, heart sounds regular, abdomen benign, no LE edema. Oral mucosa dry. No evidence of volume overload on exam. Vitals reviewed. Labs reviewed, CXR and EKG reviewed. No leucocytosis, afebrile, and no evidence of PNA in CXR however considering her hypoxia and her increased risk of complications, agree with initiating remdesevir and decadron. IS as tolerated. Follow up on inflammatory markers. Wean down oxygen as tolerated, might need 2 step O2 eval at discharge if hypoxia does not resolve. Continue home oral lasix, monitor I and Os and daily weight. Continue inhalers. Nebs prn if wheezing or SOB. Trend trop for completeness. Follow D dimer- if elevated, consider CT chest to r/o PE. Hb is stable compared to recent labs, her iron def anemia seems to be responding to the oral iron therapy- Monitor CBC with DVT chemoprophylaxis, check ferritin. Will need PT/OT eval prior to discharge. Rest as per the note above.
--- NOTE | 2021-11-12 16:03 | Electrocardiogram Report ---
Test Reason : Blood Pressure : / mmHG Vent. Rate : 072 BPM Atrial Rate : 072 BPM P-R Int : 136 ms QRS Dur : 094 ms QT Int : 428 ms P-R-T Axes : 059 063 064 degrees QTc Int : 468 ms Poor data quality, interpretation may be adversely affected Normal sinus rhythm Normal ECG When compared with ECG of 02-OCT-2021 14:27, No significant change was found Confirmed by Jamari Manzanares ([id number]) on 11/12/2021 4:02:45 PM Referred By: [facility] Confirmed By:Jamari Manzanares
[2021-11-12] MEDS ORDERED: MAGNESIUM HYDROXIDE SUSP 30 ML UDC PO PRN (17:16)
[2021-11-12] MEDS ORDERED: ACETAMINOPHEN 325 MG TAB PO PRN (17:16)
[2021-11-12] MEDS ORDERED: ONDANSETRON INJ 2 MG/ML 2 ML VIAL IV PRN (17:16)
[2021-11-12] MEDS ORDERED: ALUMINUM/MAGNESIUM SUSP 30 ML UDC PO PRN (17:16)
[2021-11-12] MEDS ORDERED: POLYETHYLENE (MIRALAX) 17 GM PACK PO PRN (17:16)
[2021-11-12] MEDS ORDERED: REMDESIVIR 200 MG in SODIUM CHLORIDE 0.9% 210 ML IV ONE (18:00)
[2021-11-12 18:09] LABS: D Dimer 980 ug/L FEU (0-500)
[2021-11-12] MEDS ORDERED: OPTIRAY 300 500mL IV ONE (19:40)
--- NOTE | 2021-11-12 20:22 | CT Scan Report ---
CT angio chest PE protocol CT DOSE: 350.30 mGy.cm HISTORY: 89 years-old Female with elevated d-dimer, hypoxia- r/o PE. Acute hypoxia with elevated d- dimer TECHNIQUE: Multiple CTA images of the chest were obtained after the intravenous administration of 104 ml Optiray. Coronal and sagittal MIPS were obtained from the axial data set and were submitted for review. All measurements were obtained according to NASCET criteria. A dose lowering technique was u tilized adhering to the principles of ALARA. COMPARISON: Chest CT 10/02/2021, CT thoracic spine 10/03/2021 FINDINGS: CTA: The heart is normal in size. Prominent dense mitral annular calcifications. Atherosclerosis of the th oracic aorta without aneurysm. Unremarkable pulmonary artery. No filling defects are identified to harmon ggest thromboembolic disease. This study however is degraded by respiratory motion artifact. CT CHEST: No thyroid nodule or lymphadenopathy identified. Moderate left with small to moderate right pleural e ffusions. The left pleural effusion has increased in size from the prior study. There is no pneumotho rax. Dependent bibasilar consolidation with linear consolidation of the lingula adjacent to the fissu re. Unchanged linear consolidation of the right lung apex suggestive of scarring with atelectasis. Mi ld bronchial wall thickening with areas of mucous plugging. Patchy multifocal segmental multilobar bi lateral groundglass opacities are similar to prior. Study is degraded by respiratory motion artifact. Nonspecific distal esophageal wall thickening. Mild generalized body wall edema. Left mastectomy. Deg enerative changes of the shoulders and spine. Healing subacute left-sided anterior fourth and fifth r ib fractures. There is progressively worsened superior endplate compression deformity involving the T 11 compression fracture which is now severe with 6 mm (previously 4 mm) retropulsion which now result s in moderate central canal stenosis. Healing bony callus surrounding the fracture has progressed. Ch ronic T1 compression fracture. IMPRESSION: 1. No pulmonary emboli identified. 2. Moderate left with small to moderate right pleural effusions. The left pleural effusion has mildly increased in size from 10/02/2021. 3. Bibasilar consolidation suggests atelectasis. There are nonspecific bilateral groundglass densitie s which are similar to prior which may also be atelectatic, however a mild infectious or inflammatory pneumonitis could appear similarly. 4. Mild bibasilar mucous plugging. 5. There is progressive worsening of the T11 compression fracture compared to the 10/03/2021 study whic h is now severe with worsening retropulsion resulting in moderate central canal stenosis. 6. Subacute healing nondisplaced fractures of the left anterior fourth and fifth ribs. No pneumothora x. ACT 112: Negative or not required by law. The above report was generated using voice recognition software. It may contain grammatical, syntax o r spelling errors. Electronically signed by: Tony Zaragoza M.D. 11/12/2021 8:20 PM
[2021-11-12 20:51] LABS: Hematocrit (blood only) 26.8 % (34.1-44.9); Hemoglobin 7.9 g/dl (12.0-16.0); Mean Corpuscular Hemoglobin 23.7 pg (25.0-34.0); Mean Corpuscular Hgb Conc 29.5 g/dL (32.0-36.0); Mean Corpuscular Volume 80.5 fL (80.0-100.0); Mean Platelet Volume 10.8 fL (9.4-12.3); Platelet Count 275 K/uL (130-400); RDW Coefficient of Variation 17.2 % (11.5-14.5); RDW Standard Deviation 50.2 fL (36.4-46.3); Red Blood Count 3.33 M/uL (3.93-5.22); White Blood Count 4.82 K/ul (4.8-10.8)
[2021-11-12] MEDS: dexAMETHasone 6 MG in SYRINGE 0 ML IV SCH (20:56)
[2021-11-12] MEDS: MONTELUKAST SODIUM 10 MG TABLET PO SCH (22:11)
[2021-11-12] MEDS: ENOXAPARIN INJ 40 MG/0.4 ML SYR SQ SCH (22:12)
[2021-11-12] MEDS: METOPROLOL TARTRATE 25 MG TAB PO SCH (22:12)
[2021-11-12] MEDS: DOCUSATE SODIUM 100 MG CAP PO SCH (22:13)
[2021-11-12] MEDS: DONEPEZIL HCL 5 MG TAB PO SCH (22:13)
[2021-11-12] MEDS: PANTOprazole 40 MG TAB PO SCH (22:13)
[2021-11-12] MEDS: CALCIUM CARBONATE 1250MG TAB PO SCH (22:13)
[2021-11-13] MEDS: UMECLIDINIUM/VILANTEROL 62.5/25MCG 7 PUFFS/INHALER INH SCH (08:13)
[2021-11-13] MEDS: AMIODARONE 200 MG TAB PO SCH (08:14)
[2021-11-13] MEDS: LOSARTAN POTASSIUM 25 MG TAB PO SCH (08:14)
[2021-11-13] MEDS: SERTRALINE HCL 50 MG TABLET PO SCH (08:14)
[2021-11-13] MEDS: CETIRIZINE HCL 10 MG TABLET PO SCH (08:14)
[2021-11-13] MEDS: SPIRONOLACTONE 12.5 MG TAB PO SCH (08:14)
[2021-11-13] MEDS: ASPIRIN 81 MG ECTAB PO SCH (08:14)
[2021-11-13] MEDS: POTASSIUM CHLORIDE 10 MEQ TABCR PO SCH (08:14)
[2021-11-13] MEDS: FUROSEMIDE 40 MG TAB PO SCH (08:14)
[2021-11-13] MEDS: METOPROLOL TARTRATE 25 MG TAB PO SCH ×2 (08:17→21:12)
[2021-11-13] MEDS: PANTOprazole 40 MG TAB PO SCH ×2 (08:17→21:14)
[2021-11-13] MEDS: DONEPEZIL HCL 5 MG TAB PO SCH ×2 (08:17→21:13)
[2021-11-13] MEDS: CALCIUM CARBONATE 1250MG TAB PO SCH ×2 (08:17→21:13)
[2021-11-13] MEDS: DOCUSATE SODIUM 100 MG CAP PO SCH ×2 (08:17→21:17)
[2021-11-13] MEDS ORDERED: FUROSEMIDE INJ 20 MG/2 ML VIAL IV ONE ×2 (09:48→13:15)
[2021-11-13 10:04] LABS: Hematocrit (blood only) 27.1 % (34.1-44.9); Mean Corpuscular Hemoglobin 23.7 pg (25.0-34.0); Mean Corpuscular Hgb Conc 29.5 g/dL (32.0-36.0); Mean Corpuscular Volume 80.4 fL (80.0-100.0); Mean Platelet Volume 10.5 fL (9.4-12.3); Platelet Count 285 K/uL (130-400); RDW Coefficient of Variation 17.1 % (11.5-14.5); RDW Standard Deviation 50.1 fL (36.4-46.3); Red Blood Count 3.37 M/uL (3.93-5.22); White Blood Count 6.18 K/ul (4.8-10.8)
[2021-11-13 10:27] LABS: BUN Creatinine Ratio 27.4 (10-20); Calcium 8.5 mg/dl (8.5-10.1); Creatinine Clr Calc Pharmacy 43.5 ml/min; Est GFR (African American) 84.6 ml/min
--- NOTE | 2021-11-13 12:44 | Hospitalist Progress Note ---
Date of Service November 13, 2021 Assessment & Plan (1) COPD (chronic obstructive pulmonary disease): (2) COVID-19: (3) Chronic heart failure with preserved ejection fraction: (4) HTN (hypertension): (5) Anemia of chronic disease: (6) Senile degeneration of brain: (7) Breast cancer, left: Plan Ms. Arevalo is an 89 year old female that presented to the [facility] from [facility] with increased SOB and weakness that has been occuring over the past 3 days. + orthopnea over past 24 hours. She has a significant past medical history of left breast cancer s/p left radical mastectomy, radiation pneumonitis, concerning right upper lobe lesion for possible carcinoma status post empiric radiation, asthmaCOPD, HTN, HFpEF, Senile Degeneration of the Brain, pAF, and anemia of chronic disease. COVID + in ED; discussed tx with Remdesivir with son, will proceed with treatment. Covid-19 Positive: Hypoxia A/C COPD exacerbation: CXR: LLL atelectasis without aspiration/PNA Covid positive in ED. Previously vaccinated. Received Solumedrol 60 mg once in ED Dexamethasone 6 mg daily Admitting team called pt Han mauro to discuss tx d/t patient having some SDOB to discuss benefits of Remdesivir; 5 day course Family consented to both steroids and Remdesivir Last PFT's 04/2019: FEV1 1.17 Continue maintenance inhaler.; Megha Riddle Had a thoracentesis for large pleural effusion in June; 700 ml removed, non malignant. CXR in AM; D-Dimer elevated CT chest - no PE ISB Continue COPD medications; Montelukast lasix prn HFpEF: no LE swelling Recent admission with acute on chronic CHF Hgb 8.0; consider transfusion should patient become symptomatic. Continue PO Lasix Continue Metoprolol,Aldactone, Lasix and K+. Recent ECHO during last admission reviewed; Mild MS, TR, severe pHTN Monitor on M/S Tele Trend AM labs Troponin mildly elev. at 15-16 - unchanged BNP 829 HTN: continue losartan pAF: controlled on amiodarone and metoprolol 12.5 PO BID; continue Anemia of Chronic Disease: Unspecified, microcytic Hgb: 7.8; baseline: Hemoccult ordered. Pt denies any nasima red or black/tarry stools. OP Gi recommends PPI continuation; feels risk > benefit of scope at this point, normal egd in 2020 Ferritin level 30 (normal/low) monitor H&H Senile Degeneration of the brain: Takes Aricept; continue Fast score: 6a Relatively independent with ADL's; however, seems more frail this admission PT/OT eval and treat orders placed; uses walker at baseline Left Breast Cancer: s/p left mastectomy hx of L breast ca hx of lung carcinoma s/p XRT hx of radiation pneumonitis Follow-up outpatient urology consultation recc to exclude the possibility of a bladder lesion; consider Urology consult if inpatient hospitalization prolonged Anxiety and Depression: Recent inpatient admission with OD with Ativan pt denies SI Continue Ativan 0.5 mg PO TID Continue Sertraline Disposition: Code: DNR/DNI PCP: Dr. Sun VTE Prophylaxis: Lovenox SQ /t COVID and fall risk with Heparin Point of Contact: Han Mauro: [phone] Plan to return to [facility] Admission and Anticipated Discharge Date Admission Date: November 12, 2021 Subjective Pt seen in follow up of hypoxia, + covid 19 Patient is lying in bed, in no acute distress. She is currently on supplemental oxygen, 2 L Reports cough No chest pain abdominal pain, fevers chills, nausea or vomiting Review of Systems Review of Systems: All systems reviewed & are unremarkable except as noted in Subjective Physical Exam Physical Exam: GENERAL: Elderly thin female, chronically ill-appearing, in no acute distress, on 2 L of nasal cannula HEENT: NC/AT, EOMI CV: S1/S2, (-) M/G/R, (-) edema Resp: + crackles, rhonchi, no wheezing, + cough GI: Abdomen S/NT/ND, Ax4 bowel sounds, (-) CVA tenderness Musculoskeletal: moves extremities Skin: (-) rashes , (-) erythema. Neuro: Alert oriented, answering questions appropriately. Speech fluent. Moves extremities. Psych: euthymic mood Results & Data Results & Data ([facility]) Vital Signs (Past 12 Hours) Vital Signs Temp Pulse Pulse Resp BP Pulse Ox O2 Del Method 11/13/21 11:00 36.6 C 63 18 147/76 H 100 Nasal Cannula 11/13/21 09:39 Nasal Cannula 11/13/21 07:24 70 11/13/21 06:43 36.5 C 70 16 147/66 H 100 Nasal Cannula 11/13/21 03:00 36.4 C L 66 16 132/63 100 Nasal Cannula O2 Flow Rate 11/13/21 11:00 2 11/13/21 09:39 2 11/13/21 07:24 11/13/21 06:43 11/13/21 03:00 Laboratory Results 11/13/21 11/13/21 11/13/21 Range/Units 09:57 09:57 08:45 WBC 6.18 (4.8-10.8) K/ul RBC 3.37 L (3.93-5.22) M/uL Hgb 8.0 L (12.0-16.0) g/dl Hct 27.1 L (34.1-44.9) % MCV 80.4 (80.0-100.0) fL MCH 23.7 L (25.0-34.0) pg MCHC 29.5 L (32.0-36.0) g/dL RDW Std Deviation 50.1 H (36.4-46.3) fL RDW Coeff of [place] 17.1 H (11.5-14.5) % Plt Count 285 (130-400) K/uL MPV 10.5 (9.4-12.3) fL Immature Gran % (Auto) % Neut % (Auto) % Lymph % (Auto) % Blair % (Auto) % Eos % (Auto) % Baso % (Auto) % Neut # (Auto) (1.4-6.5) K/uL Lymph # (Auto) (1.2-3.4) K/uL Blair # (Auto) (0.24-0.82) K/uL Eos # (Auto) (0-0.50) K/uL Baso # (Auto) (0-0.2) K/uL Immature Gran # (Auto) (0.00-0.02) K/uL Polychromasia Ovalocytes PT (9.0-12.0) Seconds INR (0.9-1.1) APTT (21.0-31.0) Seconds PTT Ratio D-Dimer (0-500) ug/L FEU Sodium 135 L (136-145) mmol/L Potassium 4.0 (3.5-5.1) mmol/L Chloride 98 (98-107) mmol/L Carbon Dioxide 33 H (21-32) mmol/L Anion Gap 4 (3-11) BUN 20 (6-23) mg/dl Creatinine 0.73 (0.6-1.2) mg/dl Est Cr Clr Drug Dosing 43.5 ml/min Est GFR ( Amer) 84.6 ml/min Est GFR (Non-Af Amer) 73.0 ml/min BUN/Creatinine Ratio 27.4 H (10-20) Glucose 88 (70-99(Fasting)) mg/dl Calcium 8.5 (8.5-10.1) mg/dl Phosphorus 4.0 (2.5-4.9) mg/dl Magnesium 2.0 (1.7-2.4) mg/dl Ferritin (8-388) ng/ml Total Bilirubin (0.2-1.0) mg/dl AST (13-39) U/L ALT (7-52) U/L Alkaline Phosphatase (34-104) U/L Troponin I High Sens 16.8 H (0-14) pg/ml B-Natriuretic Peptide (0-100) pg/ml Total Protein (6.0-8.3) gm/dl Albumin (3.4-5.0) gm/dl Globulin (2.5-4.0) gm/dl Albumin/Globulin Ratio (0.9-2) Lipase (11-82) U/L Nasal Screen MRSA (PCR) (Negative) SARS-CoV-2, RNA, NAAT (NEGATIVE) 11/13/21 11/13/21 11/12/21 Range/Units 03:18 03:18 23:00 WBC (4.8-10.8) K/ul RBC (3.93-5.22) M/uL Hgb (12.0-16.0) g/dl Hct (34.1-44.9) % MCV (80.0-100.0) fL MCH (25.0-34.0) pg MCHC (32.0-36.0) g/dL RDW Std Deviation (36.4-46.3) fL RDW Coeff of [place] (11.5-14.5) % Plt Count (130-400) K/uL MPV (9.4-12.3) fL Immature Gran % (Auto) % Neut % (Auto) % Lymph % (Auto) % Blair % (Auto) % Eos % (Auto) % Baso % (Auto) % Neut # (Auto) (1.4-6.5) K/uL Lymph # (Auto) (1.2-3.4) K/uL Blair # (Auto) (0.24-0.82) K/uL Eos # (Auto) (0-0.50) K/uL Baso # (Auto) (0-0.2) K/uL Immature Gran # (Auto) (0.00-0.02) K/uL Polychromasia Ovalocytes PT (9.0-12.0) Seconds INR (0.9-1.1) APTT (21.0-31.0) Seconds PTT Ratio D-Dimer (0-500) ug/L FEU Sodium (136-145) mmol/L Potassium (3.5-5.1) mmol/L Chloride (98-107) mmol/L Carbon Dioxide (21-32) mmol/L Anion Gap (3-11) BUN (6-23) mg/dl Creatinine (0.6-1.2) mg/dl Est Cr Clr Drug Dosing ml/min Est GFR ( Amer) ml/min Est GFR (Non-Af Amer) ml/min BUN/Creatinine Ratio (10-20) Glucose (70-99(Fasting)) mg/dl Calcium (8.5-10.1) mg/dl Phosphorus (2.5-4.9) mg/dl Magnesium 2.0 (1.7-2.4) mg/dl Ferritin (8-388) ng/ml Total Bilirubin (0.2-1.0) mg/dl AST (13-39) U/L ALT (7-52) U/L Alkaline Phosphatase (34-104) U/L Troponin I High Sens 16.5 H (0-14) pg/ml B-Natriuretic Peptide (0-100) pg/ml Total Protein (6.0-8.3) gm/dl Albumin (3.4-5.0) gm/dl Globulin (2.5-4.0) gm/dl Albumin/Globulin Ratio (0.9-2) Lipase (11-82) U/L Nasal Screen MRSA (PCR) Negative (Negative) SARS-CoV-2, RNA, NAAT (NEGATIVE) 11/12/21 11/12/21 11/12/21 Range/Units 20:44 20:44 17:41 WBC 4.82 (4.8-10.8) K/ul RBC 3.33 L (3.93-5.22) M/uL Hgb 7.9 L (12.0-16.0) g/dl Hct 26.8 L (34.1-44.9) % MCV 80.5 (80.0-100.0) fL MCH 23.7 L (25.0-34.0) pg MCHC 29.5 L (32.0-36.0) g/dL RDW Std Deviation 50.2 H (36.4-46.3) fL RDW Coeff of [place] 17.2 H (11.5-14.5) % Plt Count 275 (130-400) K/uL MPV 10.8 (9.4-12.3) fL Immature Gran % (Auto) % Neut % (Auto) % Lymph % (Auto) % Blair % (Auto) % Eos % (Auto) % Baso % (Auto) % Neut # (Auto) (1.4-6.5) K/uL Lymph # (Auto) (1.2-3.4) K/uL Blair # (Auto) (0.24-0.82) K/uL Eos # (Auto) (0-0.50) K/uL Baso # (Auto) (0-0.2) K/uL Immature Gran # (Auto) (0.00-0.02) K/uL Polychromasia Ovalocytes PT (9.0-12.0) Seconds INR (0.9-1.1) APTT (21.0-31.0) Seconds PTT Ratio D-Dimer (0-500) ug/L FEU Sodium (136-145) mmol/L Potassium (3.5-5.1) mmol/L Chloride (98-107) mmol/L Carbon Dioxide (21-32) mmol/L Anion Gap (3-11) BUN (6-23) mg/dl Creatinine (0.6-1.2) mg/dl Est Cr Clr Drug Dosing ml/min Est GFR ( Amer) ml/min Est GFR (Non-Af Amer) ml/min BUN/Creatinine Ratio (10-20) Glucose (70-99(Fasting)) mg/dl Calcium (8.5-10.1) mg/dl Phosphorus (2.5-4.9) mg/dl Magnesium (1.7-2.4) mg/dl Ferritin (8-388) ng/ml Total Bilirubin (0.2-1.0) mg/dl AST (13-39) U/L ALT (7-52) U/L Alkaline Phosphatase (34-104) U/L Troponin I High Sens 15.8 H 16.5 H (0-14) pg/ml B-Natriuretic Peptide (0-100) pg/ml Total Protein (6.0-8.3) gm/dl Albumin (3.4-5.0) gm/dl Globulin (2.5-4.0) gm/dl Albumin/Globulin Ratio (0.9-2) Lipase (11-82) U/L Nasal Screen MRSA (PCR) (Negative) SARS-CoV-2, RNA, NAAT (NEGATIVE) 11/12/21 11/12/21 11/12/21 Range/Units 17:41 14:27 12:49 WBC (4.8-10.8) K/ul RBC (3.93-5.22) M/uL Hgb (12.0-16.0) g/dl Hct (34.1-44.9) % MCV (80.0-100.0) fL MCH (25.0-34.0) pg MCHC (32.0-36.0) g/dL RDW Std Deviation (36.4-46.3) fL RDW Coeff of [place] (11.5-14.5) % Plt Count (130-400) K/uL MPV (9.4-12.3) fL Immature Gran % (Auto) % Neut % (Auto) % Lymph % (Auto) % Blair % (Auto) % Eos % (Auto) % Baso % (Auto) % Neut # (Auto) (1.4-6.5) K/uL Lymph # (Auto) (1.2-3.4) K/uL Blair # (Auto) (0.24-0.82) K/uL Eos # (Auto) (0-0.50) K/uL Baso # (Auto) (0-0.2) K/uL Immature Gran # (Auto) (0.00-0.02) K/uL Polychromasia Ovalocytes PT (9.0-12.0) Seconds INR (0.9-1.1) APTT (21.0-31.0) Seconds PTT Ratio D-Dimer 980 H* (0-500) ug/L FEU Sodium (136-145) mmol/L Potassium (3.5-5.1) mmol/L Chloride (98-107) mmol/L Carbon Dioxide (21-32) mmol/L Anion Gap (3-11) BUN (6-23) mg/dl Creatinine (0.6-1.2) mg/dl Est Cr Clr Drug Dosing ml/min Est GFR ( Amer) ml/min Est GFR (Non-Af Amer) ml/min BUN/Creatinine Ratio (10-20) Glucose (70-99(Fasting)) mg/dl Calcium (8.5-10.1) mg/dl Phosphorus (2.5-4.9) mg/dl Magnesium (1.7-2.4) mg/dl Ferritin (8-388) ng/ml Total Bilirubin (0.2-1.0) mg/dl AST (13-39) U/L ALT (7-52) U/L Alkaline Phosphatase (34-104) U/L Troponin I High Sens (0-14) pg/ml B-Natriuretic Peptide 825 H (0-100) pg/ml Total Protein (6.0-8.3) gm/dl Albumin (3.4-5.0) gm/dl Globulin (2.5-4.0) gm/dl Albumin/Globulin Ratio (0.9-2) Lipase (11-82) U/L Nasal Screen MRSA (PCR) (Negative) SARS-CoV-2, RNA, NAAT POSITIVE A* (NEGATIVE) 11/12/21 11/12/21 11/12/21 Range/Units 12:30 12:30 12:30 WBC 5.88 (4.8-10.8) K/ul RBC 3.34 L (3.93-5.22) M/uL Hgb 7.8 L (12.0-16.0) g/dl Hct 27.4 L (34.1-44.9) % MCV 82.0 (80.0-100.0) fL MCH 23.4 L (25.0-34.0) pg MCHC 28.5 L (32.0-36.0) g/dL RDW Std Deviation 51.2 H (36.4-46.3) fL RDW Coeff of Cary 17.1 H (11.5-14.5) % Plt Count 300 (130-400) K/uL MPV 10.9 (9.4-12.3) fL Immature Gran % (Auto) 0.3 % Neut % (Auto) 84.2 % Lymph % (Auto) 6.8 % Blair % (Auto) 8.0 % Eos % (Auto) 0.2 % Baso % (Auto) 0.5 % Neut # (Auto) 4.95 (1.4-6.5) K/uL Lymph # (Auto) 0.40 L (1.2-3.4) K/uL Blair # (Auto) 0.47 (0.24-0.82) K/uL Eos # (Auto) 0.01 (0-0.50) K/uL Baso # (Auto) 0.03 (0-0.2) K/uL Immature Gran # (Auto) 0.02 (0.00-0.02) K/uL Polychromasia 2+ Ovalocytes 1+ PT 11.4 (9.0-12.0) Seconds INR 1.1 (0.9-1.1) APTT 23.9 (21.0-31.0) Seconds PTT Ratio 0.9 D-Dimer (0-500) ug/L FEU Sodium (136-145) mmol/L Potassium (3.5-5.1) mmol/L Chloride (98-107) mmol/L Carbon Dioxide (21-32) mmol/L Anion Gap (3-11) BUN (6-23) mg/dl Creatinine (0.6-1.2) mg/dl Est Cr Clr Drug Dosing ml/min Est GFR ( Amer) ml/min Est GFR (Non-Af Amer) ml/min BUN/Creatinine Ratio (10-20) Glucose (70-99(Fasting)) mg/dl Calcium (8.5-10.1) mg/dl Phosphorus (2.5-4.9) mg/dl Magnesium (1.7-2.4) mg/dl Ferritin 30.9 (8-388) ng/ml Total Bilirubin (0.2-1.0) mg/dl AST (13-39) U/L ALT (7-52) U/L Alkaline Phosphatase (34-104) U/L Troponin I High Sens (0-14) pg/ml B-Natriuretic Peptide (0-100) pg/ml Total Protein (6.0-8.3) gm/dl Albumin (3.4-5.0) gm/dl Globulin (2.5-4.0) gm/dl Albumin/Globulin Ratio (0.9-2) Lipase (11-82) U/L Nasal Screen MRSA (PCR) (Negative) SARS-CoV-2, RNA, NAAT (NEGATIVE) 11/12/21 Range/Units 12:30 WBC (4.8-10.8) K/ul RBC (3.93-5.22) M/uL Hgb (12.0-16.0) g/dl Hct (34.1-44.9) % MCV (80.0-100.0) fL MCH (25.0-34.0) pg MCHC (32.0-36.0) g/dL RDW Std Deviation (36.4-46.3) fL RDW Coeff of [place] (11.5-14.5) % Plt Count (130-400) K/uL MPV (9.4-12.3) fL Immature Gran % (Auto) % Neut % (Auto) % Lymph % (Auto) % Blair % (Auto) % Eos % (Auto) % Baso % (Auto) % Neut # (Auto) (1.4-6.5) K/uL Lymph # (Auto) (1.2-3.4) K/uL Blair # (Auto) (0.24-0.82) K/uL Eos # (Auto) (0-0.50) K/uL Baso # (Auto) (0-0.2) K/uL Immature Gran # (Auto) (0.00-0.02) K/uL Polychromasia Ovalocytes PT (9.0-12.0) Seconds INR (0.9-1.1) APTT (21.0-31.0) Seconds PTT Ratio D-Dimer (0-500) ug/L FEU Sodium 137 (136-145) mmol/L Potassium 3.8 (3.5-5.1) mmol/L Chloride 100 (98-107) mmol/L Carbon Dioxide 30 (21-32) mmol/L Anion Gap 7 (3-11) BUN 22 (6-23) mg/dl Creatinine 0.79 (0.6-1.2) mg/dl Est Cr Clr Drug Dosing 41.0 ml/min Est GFR ( Amer) 76.9 ml/min Est GFR (Non-Af Amer) 66.4 ml/min BUN/Creatinine Ratio 27.8 H (10-20) Glucose 101 H (70-99(Fasting)) mg/dl Calcium 8.6 (8.5-10.1) mg/dl Phosphorus (2.5-4.9) mg/dl Magnesium 1.9 (1.7-2.4) mg/dl Ferritin (8-388) ng/ml Total Bilirubin 0.4 (0.2-1.0) mg/dl AST 18 (13-39) U/L ALT 11 (7-52) U/L Alkaline Phosphatase 87 (34-104) U/L Troponin I High Sens 15.9 H (0-14) pg/ml B-Natriuretic Peptide (0-100) pg/ml Total Protein 6.1 (6.0-8.3) gm/dl Albumin 3.9 (3.4-5.0) gm/dl Globulin 2.2 L (2.5-4.0) gm/dl Albumin/Globulin Ratio 1.8 (0.9-2) Lipase 52 (11-82) U/L Nasal Screen MRSA (PCR) (Negative) SARS-CoV-2, RNA, NAAT (NEGATIVE) Medications Administered Current Inpatient Medications Acetaminophen (Acetaminophen 325 Mg Tab) 650 mg PO Q4H PRN PRN Reason: Pain or Fever Stop: 12/12/21 17:15 Al Hydrox/Mg Hydrox/Simethicone (Aluminum/Magnesium Susp 30 Ml Udc) 15 ml PO Q4H PRN PRN Reason: Dyspepsia Stop: 12/12/21 17:15 Amiodarone HCl (Amiodarone 200 Mg Tab) 200 mg PO QAM MARILIA Stop: 12/13/21 08:59 Last Admin: 11/13/21 08:14 Dose: 200 mg Aspirin (Aspirin 81 Mg Ectab) 81 mg PO QAM MARILIA Stop: 12/13/21 08:59 Last Admin: 11/13/21 08:14 Dose: 81 mg Calcium Carbonate (Calcium Carbonate 1250mg Tab) 1,250 mg PO BID MARILIA Stop: 12/12/21 20:59 Last Admin: 11/13/21 08:17 Dose: 1,250 mg Cetirizine HCl (Cetirizine Hcl 10 Mg Tablet) 10 mg PO QAM MARILIA Stop: 12/13/21 08:59 Last Admin: 11/13/21 08:14 Dose: 10 mg Docusate Sodium (Docusate Sodium 100 Mg Cap) 100 mg PO BID MARILIA Stop: 12/12/21 20:59 Last Admin: 11/13/21 08:17 Dose: 100 mg Donepezil HCl (Donepezil Hcl 5 Mg Tab) 5 mg PO BID MARILIA Stop: 12/12/21 20:59 Last Admin: 11/13/21 08:17 Dose: 5 mg Enoxaparin Sodium (Enoxaparin Inj 40 Mg/0.4 Ml Syr) 40 mg SQ HS MARILIA Stop: 12/12/21 20:59 Last Admin: 11/12/21 22:12 Dose: 40 mg Furosemide (Furosemide 40 Mg Tab) 40 mg PO QAM MARILIA Stop: 12/13/21 08:59 Last Admin: 11/13/21 08:14 Dose: 40 mg Furosemide (Furosemide Inj 20 Mg/2 Ml Vial) 20 mg IV ONE MARILIA Stop: 12/13/21 16:00 Guaifenesin (Guaifenesin 600 Mg Tabcr) 600 mg PO Q12 MARILIA Stop: 12/13/21 12:44 Dexamethasone 6 mg/ Syringe 1.5 mls @ 1 mls/min IV Q24H MARILIA Stop: 12/12/21 17:59 Last Admin: 11/12/21 20:56 Dose: 1 mls/min Remdesivir 100 mg/ Sodium (Chloride) 250 mls @ 250 mls/hr IV DAILY@2000 MARILIA Stop: 11/16/21 20:59 Losartan Potassium (Losartan Potassium 25 Mg Tab) 25 mg PO QAM MARILIA Stop: 12/13/21 08:59 Last Admin: 11/13/21 08:14 Dose: 25 mg Magnesium Hydroxide (Magnesium Hydroxide Susp 30 Ml Udc) 30 ml PO Q12H PRN PRN Reason: Constipation Stop: 12/12/21 17:15 Metoprolol Tartrate (Metoprolol Tartrate 25 Mg Tab) 12.5 mg PO BID MARILIA Stop: 12/12/21 20:59 Last Admin: 11/13/21 08:17 Dose: 12.5 mg Montelukast Sodium (Montelukast Sodium 10 Mg Tablet) 10 mg PO HS MARILIA Stop: 12/12/21 20:59 Last Admin: 11/12/21 22:11 Dose: 10 mg Ondansetron HCl (Ondansetron Inj 2 Mg/Ml 2 Ml Vial) 4 mg IV Q6H PRN PRN Reason: Nausea Stop: 12/12/21 17:15 Pantoprazole Sodium (Pantoprazole 40 Mg Tab) 40 mg PO BID MARILIA Stop: 12/12/21 20:59 Last Admin: 11/13/21 08:17 Dose: 40 mg Polyethylene Glycol (Polyethylene (Miralax) 17 Gm Pack) 17 gm PO DAILY PRN PRN Reason: Constipation Stop: 12/12/21 17:15 Potassium Chloride (Potassium Chloride 10 Meq Tabcr) 10 meq PO DAILY MARILIA Stop: 12/13/21 08:59 Last Admin: 11/13/21 08:14 Dose: 10 meq Sertraline HCl (Sertraline Hcl 50 Mg Tablet) 150 mg PO QAM MARILIA Stop: 12/13/21 08:59 Last Admin: 11/13/21 08:14 Dose: 150 mg Spironolactone (Spironolactone 12.5 Mg Tab) 12.5 mg PO QAM MARILIA Stop: 12/13/21 08:59 Last Admin: 11/13/21 08:14 Dose: 12.5 mg Umeclidinium/Vilanterol (Umeclidinium/Vilanterol 62.5/25mcg 7 Puffs/Inhaler) 1 puffs INH DAILY MARILIA Stop: 12/13/21 08:59 Last Admin: 11/13/21 08:13 Dose: 1 puffs
[2021-11-13] MEDS: guaiFENesin 600 MG TABCR PO SCH ×2 (13:31→21:14)
[2021-11-13] MEDS: ENOXAPARIN INJ 40 MG/0.4 ML SYR SQ SCH (21:12)
[2021-11-13] MEDS: MONTELUKAST SODIUM 10 MG TABLET PO SCH (21:13)
[2021-11-13] MEDS: dexAMETHasone 6 MG in SYRINGE 0 ML IV SCH (21:15)
[2021-11-13] MEDS: REMDESIVIR 100 MG in SODIUM CHLORIDE 0.9% 230 ML IV SCH (21:16)
[2021-11-14] MEDS: PANTOprazole 40 MG TAB PO SCH ×2 (08:03→21:02)
[2021-11-14] MEDS: LOSARTAN POTASSIUM 25 MG TAB PO SCH (08:03)
[2021-11-14] MEDS: SERTRALINE HCL 50 MG TABLET PO SCH (08:04)
[2021-11-14] MEDS: METOPROLOL TARTRATE 25 MG TAB PO SCH ×2 (08:04→21:02)
[2021-11-14] MEDS: ASPIRIN 81 MG ECTAB PO SCH (08:04)
[2021-11-14] MEDS: UMECLIDINIUM/VILANTEROL 62.5/25MCG 7 PUFFS/INHALER INH SCH (08:04)
[2021-11-14] MEDS: CETIRIZINE HCL 10 MG TABLET PO SCH (08:04)
[2021-11-14] MEDS: AMIODARONE 200 MG TAB PO SCH (08:04)
[2021-11-14] MEDS: guaiFENesin 600 MG TABCR PO SCH ×2 (08:04→21:02)
[2021-11-14] MEDS: FUROSEMIDE 40 MG TAB PO SCH (08:04)
[2021-11-14] MEDS: CALCIUM CARBONATE 1250MG TAB PO SCH ×2 (08:04→21:02)
[2021-11-14] MEDS: DONEPEZIL HCL 5 MG TAB PO SCH ×2 (08:05→21:03)
[2021-11-14] MEDS: DOCUSATE SODIUM 100 MG CAP PO SCH ×2 (08:05→21:06)
[2021-11-14] MEDS: SPIRONOLACTONE 12.5 MG TAB PO SCH (08:05)
[2021-11-14] MEDS: POTASSIUM CHLORIDE 10 MEQ TABCR PO SCH (08:05)
[2021-11-14 08:08] LABS: Hematocrit (blood only) 32.1 % (34.1-44.9); Hemoglobin 9.1 g/dl (12.0-16.0); Mean Corpuscular Hgb Conc 28.3 g/dL (32.0-36.0); Mean Corpuscular Volume 81.3 fL (80.0-100.0); Platelet Count 325 K/uL (130-400); RDW Coefficient of Variation 16.7 % (11.5-14.5); RDW Standard Deviation 49.1 fL (36.4-46.3); Red Blood Count 3.95 M/uL (3.93-5.22); White Blood Count 4.58 K/ul (4.8-10.8)
[2021-11-14 08:35] LABS: BUN Creatinine Ratio 34.7 (10-20); Calcium 8.8 mg/dl (8.5-10.1); Creatinine Clr Calc Pharmacy 42.2 ml/min; Est GFR (African American) 81.9 ml/min; Est GFR (Non-African American) 70.7 ml/min; Phosphorus 4.3 mg/dl (2.5-4.9); Potassium 4.3 mmol/L (3.5-5.1)
--- NOTE | 2021-11-14 09:18 | Hospitalist Progress Note ---
Date of Service November 14, 2021 Assessment & Plan (1) COPD (chronic obstructive pulmonary disease): (2) COVID-19: (3) Chronic heart failure with preserved ejection fraction: (4) HTN (hypertension): (5) Anemia of chronic disease: (6) Senile degeneration of brain: (7) Breast cancer, left: Plan Ms. Arevalo is an 89 year old female that presented to the [facility] from [facility] with increased SOB and weakness that has been occuring over the past 3 days. + orthopnea over past 24 hours. She has a significant past medical history of left breast cancer s/p left radical mastectomy, radiation pneumonitis, concerning right upper lobe lesion for possible carcinoma status post empiric radiation, asthmaCOPD, HTN, HFpEF, Senile Degeneration of the Brain, pAF, and anemia of chronic disease. COVID + in ED; discussed tx with Remdesivir with son, will proceed with treatment. Covid-19 Positive: Hypoxia A/C COPD exacerbation: CXR: LLL atelectasis without aspiration/PNA Covid positive in ED. Previously vaccinated. Received Solumedrol 60 mg once in ED Dexamethasone 6 mg daily Admitting team called pt Han mauro to discuss tx d/t patient having some SDOB to discuss benefits of Remdesivir; 5 day course Family consented to both steroids and Remdesivir Last PFT's 04/2019: FEV1 1.17 Continue maintenance inhaler.; Megha Riddle Had a thoracentesis for large pleural effusion in June; 700 ml removed, non malignant. CXR in AM; D-Dimer elevated CT chest - no PE ISB Continue COPD medications; Montelukast lasix prn 11/14 -patient reports increase shortness of breath today. Chest x-ray obtained and shows worsening pleural effusions. This is despite giving extra IV Lasix yesterday. Continue to add IV Lasix. Add flutter valve, and Doxy. Continue to closely monitor. We will try to minimize IV medications. HFpEF: no LE swelling Recent admission with acute on chronic CHF Hgb 8.0; consider transfusion should patient become symptomatic. Continue PO Lasix Continue Metoprolol,Aldactone, Lasix and K+. Recent ECHO during last admission reviewed; Mild MS, TR, severe pHTN Monitor on M/S Tele Trend AM labs Troponin mildly elev. at 15-16 - unchanged BNP 829 HTN: continue losartan pAF: controlled on amiodarone and metoprolol 12.5 PO BID; continue Anemia of Chronic Disease: Unspecified, microcytic Hgb: 7.8; baseline: Hemoccult ordered. Pt denies any nasima red or black/tarry stools. OP Gi recommends PPI continuation; feels risk > benefit of scope at this point, normal egd in 2019 Ferritin level 30 (normal/low) monitor H&H Senile Degeneration of the brain: Takes Aricept; continue Fast score: 6a Relatively independent with ADL's; however, seems more frail this admission PT/OT eval and treat orders placed; uses walker at baseline Left Breast Cancer: s/p left mastectomy hx of L breast ca hx of lung carcinoma s/p XRT hx of radiation pneumonitis Follow-up outpatient urology consultation recc to exclude the possibility of a bladder lesion; consider Urology consult if inpatient hospitalization prolonged Anxiety and Depression: Recent inpatient admission with OD with Ativan pt denies SI Continue Ativan 0.5 mg PO TID Continue Sertraline Disposition: Code: DNR/DNI PCP: Dr. Sun VTE Prophylaxis: Lovenox SQ /t COVID and fall risk with Heparin Point of Contact: Han Mauro: [phone] Plan to return to [facility] Admission and Anticipated Discharge Date Admission Date: November 12, 2021 Subjective Pt seen in follow up of hypoxia, + covid 19 Pt reports shortness of breath, on 2L. CXR obtained - showing pl. effusions worsened - even though pt received IV lasix yesterday in addition to her home home lasix She also reports feeling anxious and that she takes ativan at home (med record reviewed - she take 0.5 mg TID) +cough No fevers chills, abd. pain, nausea or vomiting Review of Systems Review of Systems: All systems reviewed & are unremarkable except as noted in Subjective Physical Exam Physical Exam: GENERAL: Elderly thin female, chronically ill-appearing, in no acute distress, on 2 L of nasal cannula HEENT: NC/AT, EOMI CV: S1/S2, (-) M/G/R, (-) edema Resp: diminished breath sounds at bases. + crackles, rhonchi, no wheezing, + cough GI: Abdomen S/NT/ND, Ax4 bowel sounds, (-) CVA tenderness Musculoskeletal: moves extremities Skin: (-) rashes , (-) erythema. Neuro: Alert oriented, answering questions appropriately. Speech fluent. Moves extremities. Results & Data Results & Data ([facility]) Vital Signs (Past 12 Hours) Vital Signs Temp Pulse Pulse Resp BP Pulse Ox O2 Del Method 11/14/21 08:00 67 11/14/21 07:00 37.1 C 74 16 152/72 H 94 Room Air 11/14/21 04:19 36.4 C L 71 18 178/89 H 98 Nasal Cannula 11/14/21 00:38 66 11/13/21 22:24 36.7 C 68 20 133/70 99 O2 Flow Rate 11/14/21 08:00 11/14/21 07:00 11/14/21 04:19 1 11/14/21 00:38 11/13/21 22:24 Laboratory Results 11/14/21 11/14/21 11/13/21 Range/Units 07:33 07:33 16:06 WBC 4.58 L (4.8-10.8) K/ul RBC 3.95 (3.93-5.22) M/uL Hgb 9.1 L (12.0-16.0) g/dl Hct 32.1 L (34.1-44.9) % MCV 81.3 (80.0-100.0) fL MCH 23.0 L (25.0-34.0) pg MCHC 28.3 L (32.0-36.0) g/dL RDW Std Deviation 49.1 H (36.4-46.3) fL RDW Coeff of [place] 16.7 H (11.5-14.5) % Plt Count 325 (130-400) K/uL MPV 11.0 (9.4-12.3) fL Sodium 138 (136-145) mmol/L Potassium 4.3 (3.5-5.1) mmol/L Chloride 99 (98-107) mmol/L Carbon Dioxide 32 (21-32) mmol/L Anion Gap 7 (3-11) BUN 26 H (6-23) mg/dl Creatinine 0.75 (0.6-1.2) mg/dl Est Cr Clr Drug Dosing 42.2 ml/min Est GFR ( Amer) 81.9 ml/min Est GFR (Non-Af Amer) 70.7 ml/min BUN/Creatinine Ratio 34.7 H (10-20) Glucose 93 (70-99(Fasting)) mg/dl POC Glucose 123 H (70-99) mg/dl Calcium 8.8 (8.5-10.1) mg/dl Phosphorus 4.3 (2.5-4.9) mg/dl Magnesium 2.0 (1.7-2.4) mg/dl Troponin I High Sens (0-14) pg/ml 11/13/21 11/13/21 11/13/21 Range/Units 09:57 09:57 08:45 WBC 6.18 (4.8-10.8) K/ul RBC 3.37 L (3.93-5.22) M/uL Hgb 8.0 L (12.0-16.0) g/dl Hct 27.1 L (34.1-44.9) % MCV 80.4 (80.0-100.0) fL MCH 23.7 L (25.0-34.0) pg MCHC 29.5 L (32.0-36.0) g/dL RDW Std Deviation 50.1 H (36.4-46.3) fL RDW Coeff of [place] 17.1 H (11.5-14.5) % Plt Count 285 (130-400) K/uL MPV 10.5 (9.4-12.3) fL Sodium 135 L (136-145) mmol/L Potassium 4.0 (3.5-5.1) mmol/L Chloride 98 (98-107) mmol/L Carbon Dioxide 33 H (21-32) mmol/L Anion Gap 4 (3-11) BUN 20 (6-23) mg/dl Creatinine 0.73 (0.6-1.2) mg/dl Est Cr Clr Drug Dosing 43.5 ml/min Est GFR ( Amer) 84.6 ml/min Est GFR (Non-Af Amer) 73.0 ml/min BUN/Creatinine Ratio 27.4 H (10-20) Glucose 88 (70-99(Fasting)) mg/dl POC Glucose (70-99) mg/dl Calcium 8.5 (8.5-10.1) mg/dl Phosphorus 4.0 (2.5-4.9) mg/dl Magnesium 2.0 (1.7-2.4) mg/dl Troponin I High Sens 16.8 H (0-14) pg/ml Medications Administered Current Inpatient Medications Acetaminophen (Acetaminophen 325 Mg Tab) 650 mg PO Q4H PRN PRN Reason: Pain or Fever Stop: 12/12/21 17:15 Al Hydrox/Mg Hydrox/Simethicone (Aluminum/Magnesium Susp 30 Ml Udc) 15 ml PO Q4H PRN PRN Reason: Dyspepsia Stop: 12/12/21 17:15 Amiodarone HCl (Amiodarone 200 Mg Tab) [facility] [place]: 12/13/21 08:59 Last Admin: 11/14/21 08:04 Dose: 200 mg Aspirin (Aspirin 81 Mg Ectab) 81 mg PO QAM [facility] Stop: 12/13/21 08:59 Last Admin: 11/14/21 08:04 Dose: 81 mg Calcium Carbonate (Calcium Carbonate 1250mg Tab) 1,250 mg PO BID [facility] Stop: 12/12/21 20:59 Last Admin: 11/14/21 08:04 Dose: 1,250 mg Cetirizine HCl (Cetirizine Hcl 10 Mg Tablet) 10 mg PO QAM [facility] Stop: 12/13/21 08:59 Last Admin: 11/14/21 08:04 Dose: 10 mg Docusate Sodium (Docusate Sodium 100 Mg Cap) 100 mg PO BID [facility] Stop: 12/12/21 20:59 Last Admin: 11/14/21 08:05 Dose: 100 mg Donepezil HCl (Donepezil Hcl 5 Mg Tab) 5 mg PO BID [facility] Stop: 12/12/21 20:59 Last Admin: 11/14/21 08:05 Dose: 5 mg Enoxaparin Sodium (Enoxaparin Inj 40 Mg/0.4 Ml Syr) 40 mg SQ HS [facility] Stop: 12/12/21 20:59 Last Admin: 11/13/21 21:12 Dose: 40 mg Furosemide (Furosemide 40 Mg Tab) 40 mg PO QAM [facility] Stop: 12/13/21 08:59 Last Admin: 11/14/21 08:04 Dose: 40 mg Guaifenesin (Guaifenesin 600 Mg Tabcr) 600 mg PO Q12 [facility] Stop: 12/13/21 12:44 Last Admin: 11/14/21 08:04 Dose: 600 mg Dexamethasone 6 mg/ Syringe 1.5 mls @ 1 mls/min IV Q24H [facility] Stop: 12/12/21 17:59 Last Admin: 11/13/21 21:15 Dose: 1 mls/min Remdesivir 100 mg/ Sodium (Chloride) 250 mls @ 250 mls/hr IV DAILY@2000 [facility] Stop: 11/16/21 20:59 Last Infusion: 11/13/21 22:24 Dose: Infused Losartan Potassium (Losartan Potassium 25 Mg Tab) 25 mg PO QAM [facility] Stop: 12/13/21 08:59 Last Admin: 11/14/21 08:03 Dose: 25 mg Magnesium Hydroxide (Magnesium Hydroxide Susp 30 Ml Udc) 30 ml PO Q12H PRN PRN Reason: Constipation Stop: 12/12/21 17:15 Metoprolol Tartrate (Metoprolol Tartrate 25 Mg Tab) 12.5 mg PO BID [facility] Stop: 12/12/21 20:59 Last Admin: 11/14/21 08:04 Dose: 25 mg Montelukast Sodium (Montelukast Sodium 10 Mg Tablet) 10 mg PO HS [facility] Stop: 12/12/21 20:59 Last Admin: 11/13/21 21:13 Dose: 10 mg Ondansetron HCl (Ondansetron Inj 2 Mg/Ml 2 Ml Vial) 4 mg IV Q6H PRN PRN Reason: Nausea Stop: 12/12/21 17:15 Pantoprazole Sodium (Pantoprazole 40 Mg Tab) 40 mg PO BID [facility] Stop: 12/12/21 20:59 Last Admin: 11/14/21 08:03 Dose: 40 mg Polyethylene Glycol (Polyethylene (Miralax) 17 Gm Pack) 17 gm PO DAILY PRN PRN Reason: Constipation Stop: 12/12/21 17:15 Potassium Chloride (Potassium Chloride 10 Meq Tabcr) 10 meq PO DAILY [facility] Stop: 12/13/21 08:59 Last Admin: 11/14/21 08:05 Dose: 10 meq Sertraline HCl (Sertraline Hcl 50 Mg Tablet) 150 mg PO QAM [facility] Stop: 12/13/21 08:59 Last Admin: 11/14/21 08:04 Dose: 150 mg Spironolactone (Spironolactone 12.5 Mg Tab) 12.5 mg PO QAM [facility] Stop: 12/13/21 08:59 Last Admin: 11/14/21 08:05 Dose: 12.5 mg Umeclidinium/Vilanterol (Umeclidinium/Vilanterol 62.5/25mcg 7 Puffs/Inhaler) 1 puffs INH DAILY [facility] Stop: 12/13/21 08:59 Last Admin: 11/14/21 08:04 Dose: 1 puffs
[2021-11-14] MEDS ORDERED: hydrOXYzine HCl 10 MG TAB PO PRN ×2 (12:07→13:39)
[2021-11-14] MEDS ORDERED: FUROSEMIDE INJ 20 MG/2 ML VIAL IV ONE ×2 (12:44→13:36)
--- NOTE | 2021-11-14 12:50 | XRay Report ---
XR chest 1V portable CLINICAL HISTORY: dyspnea, hypoxia TECHNIQUE: Single frontal radiograph of the chest was obtained. Comparison: Comparison is made to chest radiograph 11/12/2021 FINDINGS: No lines and tubes are seen. Cardiomegaly is noted. Multifocal airspace opacities are seen. Left grea ter than right small pleural effusions are significantly increased from prior exam. IMPRESSION: 1. Multifocal airspace opacities may represent atelectasis, pneumonia, and/or aspiration. 2. Bilateral pleural effusions. ACT 112: Negative or not required by law. Electronically signed by: Rodríguez Villalta M.D. 11/14/2021 12:47 PM
[2021-11-14] MEDS ORDERED: LORazepam 0.5 MG TAB PO STA (13:37)
[2021-11-14] MEDS: DOXYCYCLINE HYCLATE 100 MG CAP PO SCH ×2 (13:40→21:02)
[2021-11-14] MEDS: dexAMETHasone 6 MG in SYRINGE 0 ML IV SCH (18:33)
[2021-11-14] MEDS: REMDESIVIR 100 MG in SODIUM CHLORIDE 0.9% 230 ML IV SCH (20:58)
[2021-11-14] MEDS: MONTELUKAST SODIUM 10 MG TABLET PO SCH (21:02)
[2021-11-14] MEDS: ENOXAPARIN INJ 40 MG/0.4 ML SYR SQ SCH (21:04)
[2021-11-14] MEDS: LORazepam 0.5 MG TAB PO PRN (22:23)
[2021-11-15] MEDS: DOXYCYCLINE HYCLATE 100 MG CAP PO SCH ×2 (07:31→20:43)
[2021-11-15] MEDS: METOPROLOL TARTRATE 25 MG TAB PO SCH ×2 (07:31→20:42)
[2021-11-15] MEDS: CALCIUM CARBONATE 1250MG TAB PO SCH ×2 (07:32→20:43)
[2021-11-15] MEDS: DONEPEZIL HCL 5 MG TAB PO SCH ×2 (07:32→20:43)
[2021-11-15] MEDS: PANTOprazole 40 MG TAB PO SCH ×2 (07:32→20:42)
[2021-11-15] MEDS: LOSARTAN POTASSIUM 25 MG TAB PO SCH (07:33)
[2021-11-15] MEDS: SERTRALINE HCL 50 MG TABLET PO SCH (07:33)
[2021-11-15] MEDS: FUROSEMIDE 40 MG TAB PO SCH (07:34)
[2021-11-15] MEDS: CETIRIZINE HCL 10 MG TABLET PO SCH (07:34)
[2021-11-15] MEDS: ASPIRIN 81 MG ECTAB PO SCH (07:34)
[2021-11-15] MEDS: guaiFENesin 600 MG TABCR PO SCH ×2 (07:34→20:42)
[2021-11-15] MEDS: AMIODARONE 200 MG TAB PO SCH (07:34)
[2021-11-15] MEDS: SPIRONOLACTONE 12.5 MG TAB PO SCH (07:34)
[2021-11-15] MEDS: UMECLIDINIUM/VILANTEROL 62.5/25MCG 7 PUFFS/INHALER INH SCH (07:35)
[2021-11-15] MEDS: DOCUSATE SODIUM 100 MG CAP PO SCH ×2 (07:38→20:43)
[2021-11-15] MEDS: POTASSIUM CHLORIDE 10 MEQ TABCR PO SCH (07:39)
[2021-11-15 08:15] LABS: BUN Creatinine Ratio 28.8 (10-20); Calcium 8.4 mg/dl (8.5-10.1); Creatinine Clr Calc Pharmacy 39.7 ml/min; Est GFR (African American) 75.8 ml/min; Est GFR (Non-African American) 65.4 ml/min; Magnesium 1.9 mg/dl (1.7-2.4); Phosphorus 3.3 mg/dl (2.5-4.9); Potassium 4.2 mmol/L (3.5-5.1)
--- NOTE | 2021-11-15 08:50 | Hospitalist Progress Note ---
Date of Service November 15, 2021 Assessment & Plan (1) COPD (chronic obstructive pulmonary disease): (2) COVID-19: (3) Chronic heart failure with preserved ejection fraction: (4) HTN (hypertension): (5) Anemia of chronic disease: (6) Senile degeneration of brain: (7) Breast cancer, left: Plan Ms. Arevalo is an 89 year old female that presented to the [facility] from [facility] with increased SOB and weakness that has been occuring over the past 3 days. + orthopnea over past 24 hours. She has a significant past medical history of left breast cancer s/p left radical mastectomy, radiation pneumonitis, concerning right upper lobe lesion for possible carcinoma status post empiric radiation, asthmaCOPD, HTN, HFpEF, Senile Degeneration of the Brain, pAF, and anemia of chronic disease. COVID + in ED; discussed tx with Remdesivir with son, will proceed with treatment. Covid-19 Positive: Hypoxia A/C COPD exacerbation: CXR: LLL atelectasis without aspiration/PNA Covid positive in ED. Previously vaccinated. Received Solumedrol 60 mg once in ED Dexamethasone 6 mg daily Admitting team called pt Han mauro to discuss tx d/t patient having some SDOB to discuss benefits of Remdesivir; 5 day course Family consented to both steroids and Remdesivir Last PFT's 04/2019: FEV1 1.17 Continue maintenance inhaler.; Megha Riddle Had a thoracentesis for large pleural effusion in June; 700 ml removed, non malignant. CXR in AM; D-Dimer elevated CT chest - no PE ISB Continue COPD medications; Montelukast lasix prn 11/14 -patient reports increased shortness of breath today. Chest x-ray obtained and shows worsening pleural effusions. This is despite giving extra IV Lasix yesterday. Continue to add IV Lasix. Add flutter valve, and Doxy. Continue to closely monitor. We will try to minimize IV medications. 11/15 shortness of breath much improved. Cough also improved. Patient is very comfortable today. HFpEF: no LE swelling Recent admission with acute on chronic CHF Hgb 8.0; consider transfusion should patient become symptomatic. Continue PO Lasix Continue Metoprolol,Aldactone, Lasix and K+. Recent ECHO during last admission reviewed; Mild MS, TR, severe pHTN Monitor on M/S Tele Trend AM labs Troponin mildly elev. at 15-16 - unchanged BNP 829 HTN: continue losartan pAF: controlled on amiodarone and metoprolol 12.5 PO BID; continue Anemia of Chronic Disease: Unspecified, microcytic Hgb: 7.8; baseline: Hemoccult ordered. Pt denies any nasima red or black/tarry stools. OP Gi recommends PPI continuation; feels risk > benefit of scope at this point, normal egd in 2019 Ferritin level 30 (normal/low) monitor H&H Senile Degeneration of the brain: Takes Aricept; continue Fast score: 6a Relatively independent with ADL's; however, seems more frail this admission PT/OT eval and treat orders placed; uses walker at baseline Left Breast Cancer: s/p left mastectomy hx of L breast ca hx of lung carcinoma s/p XRT hx of radiation pneumonitis Follow-up outpatient urology consultation recc to exclude the possibility of a bladder lesion; consider Urology consult if inpatient hospitalization prolonged Anxiety and Depression: Recent inpatient admission with OD with Ativan pt denies SI Continue Ativan 0.5 mg PO TID Continue Sertraline Disposition: Code: DNR/DNI PCP: Dr. Sun VTE Prophylaxis: Lovenox SQ /t COVID and fall risk with Heparin Point of Contact: Han Mauro: [phone] Plan to return to [facility] Admission and Anticipated Discharge Date Admission Date: November 12, 2021 Subjective Pt seen in follow up of hypoxia, + covid 19 Yesterday - CXR obtained - showing pl. effusions worsened - even though pt received IV lasix previously, in addition to her home home lasix Shortness of breath much improved. She continues to have a cough, but also improved. No fevers chills, chest pain, abd. pain, nausea or vomiting Review of Systems Review of Systems: All systems reviewed & are unremarkable except as noted in Subjective Physical Exam Physical Exam: GENERAL: Elderly thin female, chronically ill-appearing, in no acute distress, on 1 L of nasal cannula HEENT: NC/AT, EOMI CV: S1/S2, (-) M/G/R, (-) edema Resp: diminished breath sounds at bases. + minimal crackles, rhonchi, no wheezing GI: Abdomen S/NT/ND, Ax4 bowel sounds, (-) CVA tenderness Musculoskeletal: moves extremities Skin: (-) rashes , (-) erythema. Neuro: Alert oriented, answering questions appropriately. Speech fluent. Moves extremities. Results & Data Results & Data ([facility]) Vital Signs (Past 12 Hours) Vital Signs Temp Pulse Pulse Resp BP Pulse Ox Pulse Ox 11/15/21 07:44 36.4 C L 69 18 184/86 H 95 11/15/21 02:50 36.8 C 68 20 151/75 H 100 11/15/21 01:37 67 11/14/21 21:00 96 11/14/21 21:00 66 11/14/21 21:00 144/65 H O2 Del Method O2 Del Method O2 Flow Rate O2 Flow Rate 11/15/21 07:44 Room Air 11/15/21 02:50 Nasal Cannula 1 11/15/21 01:37 11/14/21 21:00 Nasal Cannula 1 11/14/21 21:00 11/14/21 21:00 Laboratory Results 11/15/21 11/15/21 Range/Units 06:56 06:56 WBC 4.50 L (4.8-10.8) K/ul RBC 3.53 L (3.93-5.22) M/uL Hgb 8.2 L (12.0-16.0) g/dl Hct 28.1 L (34.1-44.9) % MCV 79.6 L (80.0-100.0) fL MCH 23.2 L (25.0-34.0) pg MCHC 29.2 L (32.0-36.0) g/dL RDW Std Deviation 49.3 H (36.4-46.3) fL RDW Coeff of [place] 17.0 H (11.5-14.5) % Plt Count 284 (130-400) K/uL MPV 10.9 (9.4-12.3) fL Sodium 139 (136-145) mmol/L Potassium 4.2 (3.5-5.1) mmol/L Chloride 102 (98-107) mmol/L Carbon Dioxide 35 H (21-32) mmol/L Anion Gap 2 L (3-11) BUN 23 (6-23) mg/dl Creatinine 0.80 (0.6-1.2) mg/dl Est Cr Clr Drug Dosing 39.7 ml/min Est GFR ( Amer) 75.8 ml/min Est GFR (Non-Af Amer) 65.4 ml/min BUN/Creatinine Ratio 28.8 H (10-20) Glucose 75 (70-99(Fasting)) mg/dl Calcium 8.4 L (8.5-10.1) mg/dl Phosphorus 3.3 D (2.5-4.9) mg/dl Magnesium 1.9 (1.7-2.4) mg/dl Medications Administered Current Inpatient Medications Acetaminophen (Acetaminophen 325 Mg Tab) 650 mg PO Q4H PRN PRN Reason: Pain or Fever Stop: 12/12/21 17:15 Al Hydrox/Mg Hydrox/Simethicone (Aluminum/Magnesium Susp 30 Ml Udc) 15 ml PO Q4H PRN PRN Reason: Dyspepsia Stop: 12/12/21 17:15 Amiodarone HCl (Amiodarone 200 Mg Tab) 200 mg PO QAM [facility] Stop: 12/13/21 08:59 Last Admin: 11/15/21 07:34 Dose: 200 mg Aspirin (A[facility]in 81 Mg [facility]ctab) [facility] [place]: 12/13/21 08:59 Last Admin: 11/15/21 07:34 Dose: 81 mg Calcium Carbonate (Calcium Carbonate 1250mg Tab) 1,250 mg PO BID [facility] Stop: 12/12/21 20:59 Last Admin: 11/15/21 07:32 Dose: 1,250 mg Cetirizine HCl (Cetirizine Hcl 10 Mg Tablet) [facility] [place]: 12/13/21 08:59 Last Admin: 11/15/21 07:34 Dose: 10 mg Docusate Sodium (Docusate Sodium 100 Mg Cap) 100 mg PO BID [facility] Stop: 12/12/21 20:59 Last Admin: 11/15/21 07:38 Dose: 100 mg Donepezil HCl (Donepezil Hcl 5 Mg Tab) 5 mg PO BID [facility] Stop: 12/12/21 20:59 Last Admin: 11/15/21 07:32 Dose: 5 mg Doxycycline Hyclate (Doxycycline Hyclate 100 Mg Cap) 100 mg PO BID [facility] Stop: 11/21/21 12:59 Last Admin: 11/15/21 07:31 Dose: 100 mg Enoxaparin Sodium (Enoxaparin Inj 40 Mg/0.4 Ml Syr) 40 mg SQ HS [facility] Stop: 12/12/21 20:59 Last Admin: 11/14/21 21:04 Dose: 40 mg Furosemide (Furosemide 40 Mg Tab) 40 mg PO QAM [facility] Stop: 12/13/21 08:59 Last Admin: 11/15/21 07:34 Dose: 40 mg Guaifenesin (Guaifenesin 600 Mg Tabcr) 600 mg PO Q12 [facility] Stop: 12/13/21 12:44 Last Admin: 11/15/21 07:34 Dose: 600 mg Hydroxyzine HCl (Hydroxyzine Hcl 10 Mg Tab) 10 mg PO TID PRN PRN Reason: Anxiety Stop: 12/14/21 12:06 Dexamethasone 6 mg/ Syringe 1.5 mls @ 1 mls/min IV Q24H [facility] Stop: 12/12/21 17:59 Last Admin: 11/14/21 18:33 Dose: 1 mls/min Remdesivir 100 mg/ Sodium (Chloride) 250 mls @ 250 mls/hr IV DAILY@1999 [facility] Stop: 11/16/21 20:59 Last Infusion: 11/14/21 22:13 Dose: Infused Lorazepam (Lorazepam 0.5 Mg Tab) 0.5 mg PO TID PRN PRN Reason: Anxiety Stop: 12/14/21 13:37 Last Admin: 11/14/21 22:23 Dose: 0.5 mg Losartan Potassium (Losartan Potassium 25 Mg Tab) 25 mg PO QAM [facility] Stop: 12/13/21 08:59 Last Admin: 11/15/21 07:33 Dose: 25 mg Magnesium Hydroxide (Magnesium Hydroxide Susp 30 Ml Udc) 30 ml PO Q12H PRN PRN Reason: Constipation Stop: 12/12/21 17:15 Metoprolol Tartrate (Metoprolol Tartrate 25 Mg Tab) 12.5 mg PO BID [facility] Stop: 12/12/21 20:59 Last Admin: 11/15/21 07:31 Dose: 12.5 mg Montelukast Sodium (Montelukast Sodium 10 Mg Tablet) 10 mg PO HS [facility] Stop: 12/12/21 20:59 Last Admin: 11/14/21 21:02 Dose: 10 mg Ondansetron HCl (Ondansetron Inj 2 Mg/Ml 2 Ml Vial) 4 mg IV Q6H PRN PRN Reason: Nausea Stop: 12/12/21 17:15 Pantoprazole Sodium (Pantoprazole 40 Mg Tab) 40 mg PO BID [facility] Stop: 12/12/21 20:59 Last Admin: 11/15/21 07:32 Dose: 40 mg Polyethylene Glycol (Polyethylene (Miralax) 17 Gm Pack) 17 gm PO DAILY PRN PRN Reason: Constipation Stop: 12/12/21 17:15 Potassium Chloride (Potassium Chloride 10 Meq Tabcr) 10 meq PO DAILY [facility] Stop: 12/13/21 08:59 Last Admin: 11/15/21 07:39 Dose: 10 meq Sertraline HCl (Sertraline Hcl 50 Mg Tablet) 150 mg PO QAM [facility] Stop: 12/13/21 08:59 Last Admin: 11/15/21 07:33 Dose: 150 mg Spironolactone (Spironolactone 12.5 Mg Tab) 12.5 mg PO QAM [facility] Stop: 12/13/21 08:59 Last Admin: 11/15/21 07:34 Dose: 12.5 mg Umeclidinium/Vilanterol (Umeclidinium/Vilanterol 62.5/25mcg 7 Puffs/Inhaler) 1 puffs INH DAILY [facility] Stop: 12/13/21 08:59 Last Admin: 11/15/21 07:35 Dose: 1 puffs
[2021-11-15 09:18] LABS: Hematocrit (blood only) 28.1 % (34.1-44.9); Hemoglobin 8.2 g/dl (12.0-16.0); Mean Corpuscular Hemoglobin 23.2 pg (25.0-34.0); Mean Corpuscular Hgb Conc 29.2 g/dL (32.0-36.0); Mean Corpuscular Volume 79.6 fL (80.0-100.0); Mean Platelet Volume 10.9 fL (9.4-12.3); Platelet Count 284 K/uL (130-400); RDW Standard Deviation 49.3 fL (36.4-46.3); Red Blood Count 3.53 M/uL (3.93-5.22)
[2021-11-15] MEDS: LORazepam 0.5 MG TAB PO PRN ×2 (11:29→20:43)
[2021-11-15] MEDS ORDERED: FUROSEMIDE INJ 20 MG/2 ML VIAL IV ONE (18:09)
[2021-11-15] MEDS: dexAMETHasone 6 MG in SYRINGE 0 ML IV SCH (18:40)
[2021-11-15] MEDS: REMDESIVIR 100 MG in SODIUM CHLORIDE 0.9% 230 ML IV SCH (20:30)
[2021-11-15] MEDS: MONTELUKAST SODIUM 10 MG TABLET PO SCH (20:42)
[2021-11-15] MEDS: ENOXAPARIN INJ 40 MG/0.4 ML SYR SQ SCH (20:43)
[2021-11-16 08:34] LABS: Hemoglobin 9.4 g/dl (12.0-16.0); Mean Corpuscular Hemoglobin 23.2 pg (25.0-34.0); Mean Corpuscular Hgb Conc 29.4 g/dL (32.0-36.0); Mean Platelet Volume 10.9 fL (9.4-12.3); Platelet Count 346 K/uL (130-400); RDW Coefficient of Variation 16.9 % (11.5-14.5); RDW Standard Deviation 48.4 fL (36.4-46.3); Red Blood Count 4.05 M/uL (3.93-5.22)
--- NOTE | 2021-11-16 09:06 | Hospitalist Progress Note ---
Date of Service November 16, 2021 Assessment & Plan (1) COPD (chronic obstructive pulmonary disease): (2) COVID-19: (3) Chronic heart failure with preserved ejection fraction: (4) HTN (hypertension): (5) Anemia of chronic disease: (6) Senile degeneration of brain: (7) Breast cancer, left: Plan Ms. Arevalo is an 89 year old female that presented to the [facility] from [facility] with increased SOB and weakness that has been occuring over the past 3 days. + orthopnea over past 24 hours. She has a significant past medical history of left breast cancer s/p left radical mastectomy, radiation pneumonitis, concerning right upper lobe lesion for possible carcinoma status post empiric radiation, asthmaCOPD, HTN, HFpEF, Senile Degeneration of the Brain, pAF, and anemia of chronic disease. COVID + in ED; discussed tx with Remdesivir with son, will proceed with treatment. Covid-19 Positive: Hypoxia A/C COPD exacerbation: CXR: LLL atelectasis without aspiration/PNA Covid positive in ED. Previously vaccinated. Received Solumedrol 60 mg once in ED Dexamethasone 6 mg daily Admitting team called pt Han mauro to discuss tx d/t patient having some SDOB to discuss benefits of Remdesivir; 5 day course Family consented to both steroids and Remdesivir Last PFT's 04/2019: FEV1 1.17 Continue maintenance inhaler.; Megha Riddle Had a thoracentesis for large pleural effusion in June; 700 ml removed, non malignant. CXR in AM; D-Dimer elevated CT chest - no PE ISB Continue COPD medications; Montelukast lasix prn 11/14 -patient reports increased shortness of breath today. Chest x-ray obtained and shows worsening pleural effusions. This is despite giving extra IV Lasix yesterday. Continue to add IV Lasix. Add flutter valve, and Doxy. Continue to closely monitor. We will try to minimize IV medications. 11/15 shortness of breath much improved. Cough also improved. Patient is very comfortable today. 11/16 -patient reports feeling worse than yesterday, currently is on 1 L of supplemental oxygen. Obtain repeat chest x-ray, showing worsening pl. effusion. IV Lasix ordered for today and tomorrow. Repeat chest x-ray ordered for tomorrow morning. HFpEF: no LE swelling Recent admission with acute on chronic CHF Hgb 8.0; consider transfusion should patient become symptomatic. Continued PO Lasix, added IV Lasix as above, due to developing pleural effusions Continue Metoprolol,Aldactone, Lasix and K+. Recent ECHO during last admission reviewed; Mild MS, TR, severe pHTN Monitor on M/S Tele Troponin mildly elev. at 15-16 - unchanged BNP 829 HTN: continue losartan pAF: controlled on amiodarone and metoprolol 12.5 PO BID; continue Anemia of Chronic Disease: Unspecified, microcytic Hgb: 7.8; baseline: Hemoccult ordered. Pt denies any nasima red or black/tarry stools. OP Gi recommends PPI continuation; feels risk > benefit of scope at this point, normal egd in 2019 Ferritin level 30 (normal/low) monitor H&H, current Hgb ~9 Senile Degeneration of the brain: Takes Aricept; continue Fast score: 6a Relatively independent with ADL's; however, seems more frail this admission PT/OT eval and treat orders placed; uses walker at baseline Left Breast Cancer: s/p left mastectomy hx of L breast ca hx of lung carcinoma s/p XRT hx of radiation pneumonitis Follow-up outpatient urology consultation recc to exclude the possibility of a bladder lesion; consider Urology consult if inpatient hospitalization prolonged Anxiety and Depression: Recent inpatient admission with OD with Ativan pt denies SI Continue Ativan 0.5 mg PO TID Continue Sertraline Disposition: Code: DNR/DNI PCP: Dr. Sun VTE Prophylaxis: Lovenox SQ Point of Contact: Han Mauro: [phone] Plan to return to [facility] Admission and Anticipated Discharge Date Admission Date: November 12, 2021 Subjective Pt seen in follow up of hypoxia, + covid 19 Patient is lying in bed, in no acute distress. However she states that she has worsening shortness of breath compared to yesterday. She is currently on 1 L of supplemental oxygen. Yesterday she reported to be quite comfortable, however previously found pleural effusions on chest x-ray. This was despite giving IV Lasix in addition to her home dose. Repeat chest x-ray today again, showing pleural effusions. IV Lasix ordered for today as well as tomorrow morning. Repeat chest x-ray ordered for tomorrow morning as well. No fevers chills, chest pain, abd. pain, nausea or vomiting Review of Systems Review of Systems: All systems reviewed & are unremarkable except as noted in Subjective Physical Exam Physical Exam: GENERAL: Elderly thin female, chronically ill-appearing, in no acute distress, on 1 L of nasal cannula HEENT: NC/AT, EOMI CV: S1/S2, (-) M/G/R, (-) edema Resp: diminished breath sounds at bases. + minimal crackles, rhonchi, no wheezing GI: Abdomen S/NT/ND, Ax4 bowel sounds, (-) CVA tenderness Musculoskeletal: moves extremities Skin: (-) rashes , (-) erythema. Neuro: Alert oriented, answering questions appropriately. Speech fluent. Moves extremities. Results & Data Results & Data ([facility]) Vital Signs (Past 12 Hours) Vital Signs Temp Pulse Resp BP Pulse Ox O2 Del Method O2 Flow Rate 11/16/21 04:31 37 C 70 16 165/78 H 100 Nasal Cannula 1 11/15/21 23:45 36.7 C 70 16 150/70 H 99 Nasal Cannula 1 FiO2 11/16/21 04:31 11/15/21 23:45 0 Laboratory Results 11/16/21 11/16/21 Range/Units 07:24 07:24 WBC 4.70 L (4.8-10.8) K/ul RBC 4.05 (3.93-5.22) M/uL Hgb 9.4 L (12.0-16.0) g/dl Hct 32.0 L (34.1-44.9) % MCV 79.0 L (80.0-100.0) fL MCH 23.2 L (25.0-34.0) pg MCHC 29.4 L (32.0-36.0) g/dL RDW Std Deviation 48.4 H (36.4-46.3) fL RDW Coeff of [place] 16.9 H (11.5-14.5) % Plt Count 346 (130-400) K/uL MPV 10.9 (9.4-12.3) fL Sodium 137 (136-145) mmol/L Potassium 4.0 (3.5-5.1) mmol/L Chloride 97 L (98-107) mmol/L Carbon Dioxide 34 H (21-32) mmol/L Anion Gap 6 (3-11) BUN 23 (6-23) mg/dl Creatinine 0.80 (0.6-1.2) mg/dl Est Cr Clr Drug Dosing 35.9 ml/min Est GFR ( Amer) 75.8 ml/min Est GFR (Non-Af Amer) 65.4 ml/min BUN/Creatinine Ratio 28.8 H (10-20) Glucose 87 (70-99(Fasting)) mg/dl Calcium 8.9 (8.5-10.1) mg/dl Phosphorus 3.9 (2.5-4.9) mg/dl Magnesium 1.8 (1.7-2.4) mg/dl Medications Administered Current Inpatient Medications Acetaminophen (Acetaminophen 325 Mg Tab) 650 mg PO Q4H PRN PRN Reason: Pain or Fever Stop: 12/12/21 17:15 Al Hydrox/Mg Hydrox/Simethicone (Aluminum/Magnesium Susp 30 Ml Udc) 15 ml PO Q4H PRN PRN Reason: Dyspepsia Stop: 12/12/21 17:15 Amiodarone HCl (Amiodarone 200 Mg Tab) 200 mg PO QAM [facility] Stop: 12/13/21 08:59 Last Admin: 11/15/21 07:34 Dose: 200 mg Aspirin (Aspirin 81 Mg Ectab) 81 mg PO QAM [facility] Stop: 12/13/21 08:59 Last Admin: 11/15/21 07:34 Dose: 81 mg Calcium Carbonate (Calcium Carbonate 1250mg Tab) 1,250 mg PO BID [facility] Stop: 12/12/21 20:59 Last Admin: 11/15/21 20:43 Dose: 1,250 mg Cetirizine HCl (Cetirizine Hcl 10 Mg Tablet) 10 mg PO QAM [facility] Stop: 12/13/21 08:59 Last Admin: 11/15/21 07:34 Dose: 10 mg Docusate Sodium (Docusate Sodium 100 Mg Cap) 100 mg PO BID [facility] Stop: 12/12/21 20:59 Last Admin: 11/15/21 20:43 Dose: 100 mg Donepezil HCl (Donepezil Hcl 5 Mg Tab) 5 mg PO BID [facility] Stop: 12/12/21 20:59 Last Admin: 11/15/21 20:43 Dose: 5 mg Doxycycline Hyclate (Doxycycline Hyclate 100 Mg Cap) 100 mg PO BID [facility] Stop: 11/21/21 12:59 Last Admin: 11/15/21 20:43 Dose: 100 mg Enoxaparin Sodium (Enoxaparin Inj 40 Mg/0.4 Ml Syr) 40 mg SQ HS [facility] Stop: 12/12/21 20:59 Last Admin: 11/15/21 20:43 Dose: 40 mg Furosemide (Furosemide 40 Mg Tab) 40 mg PO QAM [facility] Stop: 12/13/21 08:59 Last Admin: 11/15/21 07:34 Dose: 40 mg Guaifenesin (Guaifenesin 600 Mg Tabcr) 600 mg PO Q12 [facility] Stop: 12/13/21 12:44 Last Admin: 11/15/21 20:42 Dose: 600 mg Hydroxyzine HCl (Hydroxyzine Hcl 10 Mg Tab) 10 mg PO TID PRN PRN Reason: Anxiety Stop: 12/14/21 12:06 Dexamethasone 6 mg/ Syringe 1.5 mls @ 1 mls/min IV Q24H [facility] Stop: 12/12/21 17:59 Last Admin: 11/15/21 18:40 Dose: 1 mls/min Remdesivir 100 mg/ Sodium (Chloride) 250 mls @ 250 mls/hr IV DAILY@1999 [facility] Stop: 11/16/21 20:59 Last Infusion: 11/15/21 22:13 Dose: Infused Lorazepam (Lorazepam 0.5 Mg Tab) 0.5 mg PO TID PRN PRN Reason: Anxiety Stop: 12/14/21 13:37 Last Admin: 11/15/21 20:43 Dose: 0.5 mg Losartan Potassium (Losartan Potassium 25 Mg Tab) 25 mg PO QAM [facility] Stop: 12/13/21 08:59 Last Admin: 11/15/21 07:33 Dose: 25 mg Magnesium Hydroxide (Magnesium Hydroxide Susp 30 Ml Udc) 30 ml PO Q12H PRN PRN Reason: Constipation Stop: 12/12/21 17:15 Metoprolol Tartrate (Metoprolol Tartrate 25 Mg Tab) 12.5 mg PO BID [facility] Stop: 12/12/21 20:59 Last Admin: 11/15/21 20:42 Dose: 12.5 mg Montelukast Sodium (Montelukast Sodium 10 Mg Tablet) 10 mg PO HS [facility] Stop: 12/12/21 20:59 Last Admin: 11/15/21 20:42 Dose: 10 mg Ondansetron HCl (Ondansetron Inj 2 Mg/Ml 2 Ml Vial) 4 mg IV Q6H PRN PRN Reason: Nausea Stop: 12/12/21 17:15 Pantoprazole Sodium (Pantoprazole 40 Mg Tab) 40 mg PO BID [facility] Stop: 12/12/21 20:59 Last Admin: 11/15/21 20:42 Dose: 40 mg Polyethylene Glycol (Polyethylene (Miralax) 17 Gm Pack) 17 gm PO DAILY PRN PRN Reason: Constipation Stop: 12/12/21 17:15 Potassium Chloride (Potassium Chloride 10 Meq Tabcr) 10 meq PO DAILY [facility] Stop: 12/13/21 08:59 Last Admin: 11/15/21 07:39 Dose: 10 meq Sertraline HCl (Sertraline Hcl 50 Mg Tablet) 150 mg PO QAM [facility] Stop: 12/13/21 08:59 Last Admin: 11/15/21 07:33 Dose: 150 mg Spironolactone (Spironolactone 12.5 Mg Tab) 12.5 mg PO QAM [facility] Stop: 12/13/21 08:59 Last Admin: 11/15/21 07:34 Dose: 12.5 mg Umeclidinium/Vilanterol (Umeclidinium/Vilanterol 62.5/25mcg 7 Puffs/Inhaler) 1 puffs INH DAILY [facility] Stop: 12/13/21 08:59 Last Admin: 11/15/21 07:35 Dose: 1 puffs
[2021-11-16 09:23] LABS: BUN Creatinine Ratio 28.8 (10-20); Calcium 8.9 mg/dl (8.5-10.1); Creatinine Clr Calc Pharmacy 35.9 ml/min; Est GFR (African American) 75.8 ml/min; Est GFR (Non-African American) 65.4 ml/min; Magnesium 1.8 mg/dl (1.7-2.4); Phosphorus 3.9 mg/dl (2.5-4.9)
[2021-11-16] MEDS: AMIODARONE 200 MG TAB PO SCH (09:23)
[2021-11-16] MEDS: CALCIUM CARBONATE 1250MG TAB PO SCH ×2 (09:24→20:56)
[2021-11-16] MEDS: ASPIRIN 81 MG ECTAB PO SCH (09:24)
[2021-11-16] MEDS: CETIRIZINE HCL 10 MG TABLET PO SCH (09:25)
[2021-11-16] MEDS: DOCUSATE SODIUM 100 MG CAP PO SCH ×2 (09:26→21:05)
[2021-11-16] MEDS: DONEPEZIL HCL 5 MG TAB PO SCH ×2 (09:26→20:57)
[2021-11-16] MEDS: guaiFENesin 600 MG TABCR PO SCH ×2 (09:27→21:00)
[2021-11-16] MEDS: FUROSEMIDE 40 MG TAB PO SCH (09:27)
[2021-11-16] MEDS: LOSARTAN POTASSIUM 25 MG TAB PO SCH (09:27)
[2021-11-16] MEDS: DOXYCYCLINE HYCLATE 100 MG CAP PO SCH ×2 (09:27→20:59)
[2021-11-16] MEDS: METOPROLOL TARTRATE 25 MG TAB PO SCH ×2 (09:27→21:00)
[2021-11-16] MEDS: PANTOprazole 40 MG TAB PO SCH ×2 (09:28→21:02)
[2021-11-16] MEDS: SPIRONOLACTONE 12.5 MG TAB PO SCH (09:28)
[2021-11-16] MEDS: SERTRALINE HCL 50 MG TABLET PO SCH (09:28)
[2021-11-16] MEDS: UMECLIDINIUM/VILANTEROL 62.5/25MCG 7 PUFFS/INHALER INH SCH (09:29)
[2021-11-16] MEDS: POTASSIUM CHLORIDE 10 MEQ TABCR PO SCH (09:36)
--- NOTE | 2021-11-16 15:52 | XRay Report ---
SINGLE VIEW CHEST CLINICAL HISTORY: Follow-up pleural effusions. FINDINGS: An AP, portable, upright chest radiograph is compared to study dated 11/14/2021. Correlation is made with chest CT dated 11/12/2021. The examination is degraded by portable technique and patient rotation. The heart is enlarged noting atherosclerotic calcification of the thoracic aorta. There is pulmonary vascular congestion. The mitral annulus is densely calcified. Chronic interstitial thicken ing is similar to previous. Fibrotic change in the right upper lobe is similar to previous. A calcifi ed granuloma is noted at the left apex. No pneumothorax is seen. The skeletal structures are osteopen ic. The bony thorax is grossly intact. Advanced arthritic change is seen in the shoulders. IMPRESSION: 1. Cardiomegaly with evidence of congestive failure. 2. Layering pleural effusions with dependent consolidation. ACT 112: Negative or not required by law. Electronically signed by: Ab Boston M.D. 11/16/2021 3:50 PM
[2021-11-16] MEDS: LORazepam 0.5 MG TAB PO PRN ×2 (16:55→21:08)
[2021-11-16] MEDS: dexAMETHasone 6 MG in SYRINGE 0 ML IV SCH (16:55)
[2021-11-16] MEDS ORDERED: FUROSEMIDE 40 MG/4 ML VIAL IV ONE ×2 (17:52→18:05)
[2021-11-16] MEDS: REMDESIVIR 100 MG in SODIUM CHLORIDE 0.9% 230 ML IV SCH (20:53)
[2021-11-16] MEDS: ENOXAPARIN INJ 40 MG/0.4 ML SYR SQ SCH (20:59)
[2021-11-16] MEDS: MONTELUKAST SODIUM 10 MG TABLET PO SCH (21:01)
[2021-11-17 08:23] LABS: BUN Creatinine Ratio 36.4 (10-20); Calcium 8.7 mg/dl (8.5-10.1); Creatinine Clr Calc Pharmacy 37.4 ml/min; Est GFR (African American) 79.3 ml/min; Est GFR (Non-African American) 68.5 ml/min; Magnesium 1.8 mg/dl (1.7-2.4); Phosphorus 3.6 mg/dl (2.5-4.9)
[2021-11-17] MEDS ORDERED: FUROSEMIDE 40 MG/4 ML VIAL IV ONE (09:00)
[2021-11-17] MEDS: POTASSIUM CHLORIDE 10 MEQ TABCR PO SCH (10:11)
[2021-11-17] MEDS: CETIRIZINE HCL 10 MG TABLET PO SCH (10:11)
[2021-11-17] MEDS: PANTOprazole 40 MG TAB PO SCH ×2 (10:11→20:48)
[2021-11-17] MEDS: METOPROLOL TARTRATE 25 MG TAB PO SCH ×2 (10:12→20:48)
[2021-11-17] MEDS: FUROSEMIDE 40 MG TAB PO SCH (10:12)
[2021-11-17] MEDS: SPIRONOLACTONE 12.5 MG TAB PO SCH (10:13)
[2021-11-17] MEDS: ASPIRIN 81 MG ECTAB PO SCH (10:13)
[2021-11-17] MEDS: AMIODARONE 200 MG TAB PO SCH (10:13)
[2021-11-17] MEDS: DOXYCYCLINE HYCLATE 100 MG CAP PO SCH ×2 (10:13→20:47)
[2021-11-17] MEDS: guaiFENesin 600 MG TABCR PO SCH ×2 (10:13→20:47)
[2021-11-17] MEDS: SERTRALINE HCL 50 MG TABLET PO SCH (10:13)
[2021-11-17] MEDS: LOSARTAN POTASSIUM 25 MG TAB PO SCH (10:13)
[2021-11-17] MEDS: UMECLIDINIUM/VILANTEROL 62.5/25MCG 7 PUFFS/INHALER INH SCH (10:14)
[2021-11-17] MEDS: DONEPEZIL HCL 5 MG TAB PO SCH ×2 (10:14→20:46)
[2021-11-17] MEDS: DOCUSATE SODIUM 100 MG CAP PO SCH ×2 (11:26→20:51)
[2021-11-17] MEDS: CALCIUM CARBONATE 1250MG TAB PO SCH ×2 (11:26→20:50)
--- NOTE | 2021-11-17 12:03 | XRay Report ---
XR chest 1V portable HISTORY: 89 years-old Female follow up pl. effusion follow-up study in a patient with pleural effusi ons COMPARISON: Chest radiograph 11/16/2021, CTA chest 11/12/2021 TECHNIQUE: AP view of the chest FINDINGS: Cardiac silhouette is enlarged. Mitral annular calcifications. No pneumothorax. Linear right upper lo be consolidative density redemonstrated. Left greater than right pleural effusions have decreased in size from comparison. Left greater than right bibasilar consolidation has also improved. Mild pulmona ry vascular congestion. Degenerative changes of the shoulders and spine. IMPRESSION: 1. Cardiomegaly with improving pulmonary edema. 2. Decrease size of the pleural effusions with decreased bibasilar consolidation. ACT 112: Negative or not required by law. The above report was generated using voice recognition software. It may contain grammatical, syntax o r spelling errors. Electronically signed by: Tony Zaragoza M.D. 11/17/2021 12:02 PM
--- NOTE | 2021-11-17 13:17 | Hospitalist Progress Note ---
Date of Service November 17, 2021 Assessment & Plan (1) COVID-19: Plan: Improved with residual cough, Completed course of remdesivir and daily decadron this admission. Stop decadron now. Cont supportive therapy. (2) Acute on chronic heart failure with preserved ejection fraction: Plan: Presented with hypervolemia and pleural effusions on CXR. Progressive SOB in setting of COVID and wheezing. She has received daily IV Lasix along with her PO home Lasix and has seen an improvement overall in pleural effusions and pulmonary edema on CXR. She is breathing at her baseline. Cont Lasix 40mg PO daily per her home dosing. cont aldactone perr home regimen. (3) COPD (chronic obstructive pulmonary disease): Plan: She had some wheezing in the bases and has had some steroids this admission as well as doxycycline. PResumably this was forr a COPD exacerbation in setting of covid as was initially documented on H&P. Today there iss resolution of hypoxia, no wheezing and she is breathing at baseline. Brornchodilators PRN Cont home inhaler therapy. (4) HTN (hypertension): Plan: chronic, controlled, continue losartan and spironolactone. (5) Anemia of chronic disease: Plan: chronic, at goal OP Gi recommends PPI continuation; feels risk > benefit of scope at this point, normal egd in 2020 Ferritin level 30 (normal/low) monitor H&H, current Hgb ~9 (6) Breast cancer, left: Plan: s/p left mastectomy hx of L breast ca hx of lung carcinoma s/p XRT hx of radiation pneumonitis Follow-up outpatient urology consultation recc to exclude the possibility of a bladder lesion; consider Urology consult if inpatient hospitalization prolonged (7) PAF (paroxysmal atrial fibrillation): Plan: controlled on amiodarone and metoprolol 12.5 PO BID; continue. No AC because of her anemia per prior notes. 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 Sun VTE Prophylaxis: Lovenox SQ Point of Contact: Han Mauro: [phone] Plan to return to [facility]-likely tomorrow. Prema Reyes DO [facility] Hospitalist Admission and Anticipated Discharge Date Admission Date: November 12, 2021 Subjective 89 yo F Pt seen in follow up of hypoxia, + covid 19 She has some coughing but hypoxia has resolved CXR this morning with decreased pulmonary edema and pleural effusions She is feeling improved. Afebrile Tolerating PO She mentioned 6 episodes of new onset diarrhea this afternoon Review of Systems Review of Systems: All systems were reviewed and negative except as indicated on subjective above. Physical Exam Physical Exam: CONSTITUTIONAL: WNWD, vitals as above, generally well- appearing, NAD EYES: normal conjunctivae, no scleral icterus ENT: external ear and nose normal, MMM NECK: trachea midline, RESPIRATORY: clear to auscultation bilaterally with diminished breath sounds at the bases bilaterally, no crackles, rales or wheezes, normal respiratory effort CARDIOVASCULAR: regular rate and rhythm, S1 and 2 heard without murmurs, gallops or rubs, no JVD, no peripheral edema CHEST: inspection of chest was normal GASTROINTESTINAL: soft, nontender, ND, no guarding MUSCULOSKELETAL: strength 5/5 throughout, head is normocephalic and atraumatic SKIN: warm and dry NEUROLOGIC: CN 2-12 grossly intact, no sensory deficit, normal cognition, normal speech, no tremor PSYCHIATRIC: alert cooperative and oriented to person, place and time. Euthymic mood, makes good eye contact, language grossly intact, recent and remote memory grossly intact. Results & Data Results & Data ([facility]) Vital Signs (Past 12 Hours) Vital Signs Temp Pulse Resp BP Pulse Ox O2 Del Method 11/17/21 10:00 Room Air 11/17/21 11:59 36.6 C 18 146/77 H 94 11/17/21 10:10 36.4 C L 67 16 122/60 96 Room Air 11/17/21 04:33 36.3 C L 70 18 166/76 H 97 Room Air Laboratory Results BMP 11/17/21 07:35 Sodium 136 Potassium 4.0 Chloride 98 Carbon Dioxide 34 H BUN 28 H Creatinine 0.77 Glucose 73 Calcium 8.7 Diagnostic Findings Chest X-Ray 11/17/21 09:00 XR chest 1V portable HISTORY: 89 years-old Female follow up pl. effusion follow-up study in a patient with pleural effusions COMPARISON: Chest radiograph 11/16/2021, CTA chest 11/12/2021 TECHNIQUE: AP view of the chest FINDINGS: Cardiac silhouette is enlarged. Mitral annular calcifications. No pneumothorax. Linear right upper lobe consolidative density redemonstrated. Left greater than right pleural effusions have decreased in size from comparison. Left greater than right bibasilar consolidation has also improved. Mild pulmonary vascular congestion. Degenerative changes of the shoulders and spine. IMPRESSION: 1. Cardiomegaly with improving pulmonary edema. 2. Decrease size of the pleural effusions with decreased bibasilar consolidation. ACT 112: Negative or not required by law. The above report was generated using voice recognition software. It may contain grammatical, syntax or spelling errors. Electronically signed by: Tony Zaragoza M.D. 11/17/2021 12:02 PM Medications Administered Current Inpatient Medications Acetaminophen (Acetaminophen 325 Mg Tab) 650 mg PO Q4H PRN PRN Reason: Pain or Fever Stop: 12/12/21 17:15 Al Hydrox/Mg Hydrox/Simethicone (Aluminum/Magnesium Susp 30 Ml Udc) 15 ml PO Q4H PRN PRN Reason: Dyspepsia Stop: 12/12/21 17:15 Amiodarone HCl (Amiodarone 200 Mg Tab) 200 mg PO QAM [facility] Stop: 12/13/21 08:59 Last Admin: 11/17/21 10:13 Dose: 200 mg Aspirin (Aspirin 81 Mg Ectab) 81 mg PO QAM [facility] Stop: 12/13/21 08:59 Last Admin: 11/17/21 10:13 Dose: 81 mg Calcium Carbonate (Calcium Carbonate 1250mg Tab) 1,250 mg PO BID [facility] Stop: 12/12/21 20:59 Last Admin: 11/17/21 11:26 Dose: 1,250 mg Cetirizine HCl (Cetirizine Hcl 10 Mg Tablet) 10 mg PO QAM [facility] Stop: 12/13/21 08:59 Last Admin: 11/17/21 10:11 Dose: 10 mg Docusate Sodium (Docusate Sodium 100 Mg Cap) 100 mg PO BID [facility] Stop: 12/12/21 20:59 Last Admin: 11/17/21 11:26 Dose: 100 mg Donepezil HCl (Donepezil Hcl 5 Mg Tab) 5 mg PO BID [facility] Stop: 12/12/21 20:59 Last Admin: 11/17/21 10:14 Dose: 5 mg Doxycycline Hyclate (Doxycycline Hyclate 100 Mg Cap) 100 mg PO BID [facility] Stop: 11/21/21 12:59 Last Admin: 11/17/21 10:13 Dose: 100 mg Enoxaparin Sodium (Enoxaparin Inj 40 Mg/0.4 Ml Syr) 40 mg SQ HS [facility] Stop: 12/12/21 20:59 Last Admin: 11/16/21 20:59 Dose: 40 mg Furosemide (Furosemide 40 Mg Tab) 40 mg PO QAM [facility] Stop: 12/13/21 08:59 Last Admin: 11/17/21 10:12 Dose: 40 mg Guaifenesin (Guaifenesin 600 Mg Tabcr) 600 mg PO Q12 [facility] Stop: 12/13/21 12:44 Last Admin: 11/17/21 10:13 Dose: 600 mg Hydroxyzine HCl (Hydroxyzine Hcl 10 Mg Tab) 10 mg PO TID PRN PRN Reason: Anxiety Stop: 12/14/21 12:06 Dexamethasone 6 mg/ Syringe 1.5 mls @ 1 mls/min IV Q24H [facility] Stop: 12/12/21 17:59 Last Admin: 11/16/21 16:55 Dose: 1 mls/min Lorazepam (Lorazepam 0.5 Mg Tab) 0.5 mg PO TID PRN PRN Reason: Anxiety Stop: 12/14/21 13:37 Last Admin: 11/16/21 21:08 Dose: 0.5 mg Losartan Potassium (Losartan Potassium 25 Mg Tab) 25 mg PO QAM [facility] Stop: 12/13/21 08:59 Last Admin: 11/17/21 10:13 Dose: 25 mg Magnesium Hydroxide (Magnesium Hydroxide Susp 30 Ml Udc) 30 ml PO Q12H PRN PRN Reason: Constipation Stop: 12/12/21 17:15 Metoprolol Tartrate (Metoprolol Tartrate 25 Mg Tab) 12.5 mg PO BID [facility] Stop: 12/12/21 20:59 Last Admin: 11/17/21 10:12 Dose: 12.5 mg Montelukast Sodium (Montelukast Sodium 10 Mg Tablet) 10 mg PO HS [facility] Stop: 12/12/21 20:59 Last Admin: 11/16/21 21:01 Dose: 10 mg Ondansetron HCl (Ondansetron Inj 2 Mg/Ml 2 Ml Vial) 4 mg IV Q6H PRN PRN Reason: Nausea Stop: 12/12/21 17:15 Pantoprazole Sodium (Pantoprazole 40 Mg Tab) 40 mg PO BID [facility] Stop: 12/12/21 20:59 Last Admin: 11/17/21 10:11 Dose: 40 mg Polyethylene Glycol (Polyethylene (Miralax) 17 Gm Pack) 17 gm PO DAILY PRN PRN Reason: Constipation Stop: 12/12/21 17:15 Potassium Chloride (Potassium Chloride 10 Meq Tabcr) 10 meq PO DAILY [facility] Stop: 12/13/21 08:59 Last Admin: 11/17/21 10:11 Dose: 10 meq Sertraline HCl (Sertraline Hcl 50 Mg Tablet) 150 mg PO QAM [facility] Stop: 12/13/21 08:59 Last Admin: 11/17/21 10:13 Dose: 150 mg Spironolactone (Spironolactone 12.5 Mg Tab) 12.5 mg PO QAM [facility] Stop: 12/13/21 08:59 Last Admin: 11/17/21 10:13 Dose: 12.5 mg Umeclidinium/Vilanterol (Umeclidinium/Vilanterol 62.5/25mcg 7 Puffs/Inhaler) 1 puffs INH DAILY [facility] Stop: 12/13/21 08:59 Last Admin: 11/17/21 10:14 Dose: 1 puffs (1) COPD (chronic obstructive pulmonary disease) COPD type: COPD with acute exacerbation Qualified Code(s): J44.1 - Chronic obstructive pulmonary disease with (acute) exacerbation
[2021-11-17] MEDS: dexAMETHasone 6 MG in SYRINGE 0 ML IV SCH (18:24)
[2021-11-17] MEDS: ENOXAPARIN INJ 40 MG/0.4 ML SYR SQ SCH (20:49)
[2021-11-17] MEDS: MONTELUKAST SODIUM 10 MG TABLET PO SCH (20:49)
[2021-11-17] MEDS: LORazepam 0.5 MG TAB PO PRN (21:05)
[2021-11-18 08:37] LABS: BUN Creatinine Ratio 35.4 (10-20); Calcium 8.7 mg/dl (8.5-10.1); Creatinine Clr Calc Pharmacy 34.9 ml/min; Est GFR (African American) 73.5 ml/min; Est GFR (Non-African American) 63.4 ml/min; Magnesium 1.8 mg/dl (1.7-2.4); Potassium 3.7 mmol/L (3.5-5.1)
[2021-11-18 08:38] LABS: Hematocrit (blood only) 27.9 % (34.1-44.9); Hemoglobin 8.7 g/dl (12.0-16.0); Mean Corpuscular Hemoglobin 23.1 pg (25.0-34.0); Mean Corpuscular Hgb Conc 31.2 g/dL (32.0-36.0); Mean Platelet Volume 11.1 fL (9.4-12.3); Platelet Count 324 K/uL (130-400); RDW Coefficient of Variation 16.8 % (11.5-14.5); RDW Standard Deviation 44.9 fL (36.4-46.3); Red Blood Count 3.77 M/uL (3.93-5.22); White Blood Count 4.11 K/ul (4.8-10.8)
[2021-11-18] MEDS: PANTOprazole 40 MG TAB PO SCH ×2 (08:51→21:59)
[2021-11-18] MEDS: SERTRALINE HCL 50 MG TABLET PO SCH (08:52)
[2021-11-18] MEDS: guaiFENesin 600 MG TABCR PO SCH ×2 (08:52→21:57)
[2021-11-18] MEDS: FUROSEMIDE 40 MG TAB PO SCH (08:52)
[2021-11-18] MEDS: AMIODARONE 200 MG TAB PO SCH (08:53)
[2021-11-18] MEDS: ASPIRIN 81 MG ECTAB PO SCH (08:53)
[2021-11-18] MEDS: LOSARTAN POTASSIUM 25 MG TAB PO SCH (08:53)
[2021-11-18] MEDS: CALCIUM CARBONATE 1250MG TAB PO SCH ×2 (08:53→21:52)
[2021-11-18] MEDS: SPIRONOLACTONE 12.5 MG TAB PO SCH (08:53)
[2021-11-18] MEDS: METOPROLOL TARTRATE 25 MG TAB PO SCH ×2 (08:54→21:57)
[2021-11-18] MEDS: DOXYCYCLINE HYCLATE 100 MG CAP PO SCH (08:54)
[2021-11-18] MEDS: UMECLIDINIUM/VILANTEROL 62.5/25MCG 7 PUFFS/INHALER INH SCH (08:55)
[2021-11-18] MEDS: DONEPEZIL HCL 5 MG TAB PO SCH ×2 (08:55→21:55)
[2021-11-18] MEDS: CETIRIZINE HCL 10 MG TABLET PO SCH (08:55)
[2021-11-18] MEDS: DOCUSATE SODIUM 100 MG CAP PO SCH ×2 (08:56→22:00)
[2021-11-18] MEDS: POTASSIUM CHLORIDE 10 MEQ TABCR PO SCH (09:03)
--- NOTE | 2021-11-18 12:10 | Hospitalist Progress Note ---
Date of Service November 18, 2021 Assessment & Plan (1) COVID-19: Plan: Improved with residual cough, Completed course of remdesivir and daily decadron this admission. Cont supportive therapy. Start Flonase. Given Robitussin AC now as trial. (2) Acute on chronic heart failure with preserved ejection fraction: Plan: Presented with hypervolemia and pleural effusions on CXR. Progressive SOB in setting of COVID and wheezing. She has received daily IV Lasix along with her PO home Lasix and has seen an improvement overall in pleural effusions and pulmonary edema on CXR. She is breathing at her baseline. Appears euvolemic on exam. Cont Lasix 40mg PO daily per her home dosing. cont aldactone per home regimen. (3) COPD (chronic obstructive pulmonary disease): Plan: She had some wheezing in the bases and has had some steroids this admission as well as doxycycline. Presumably this was for a COPD exacerbation in setting of covid as was initially documented on H&P. Today there is resolution of hypoxia, no wheezing and she is breathing at baseline. Bronchodilators PRN Cont home inhaler therapy. (4) HTN (hypertension): Plan: chronic, controlled, continue losartan and spironolactone. (5) Anemia of chronic disease: Plan: chronic, at goal OP Gi recommends PPI continuation; feels risk > benefit of scope at this point, normal egd in 2019 Ferritin level 30 (normal/low) monitor H&H, current Hgb ~9 (6) Breast cancer, left: Plan: s/p left mastectomy hx of L breast ca hx of lung carcinoma s/p XRT hx of radiation pneumonitis Follow-up outpatient urology consultation rec to exclude the possibility of a bladder lesion; consider Urology consult if inpatient hospitalization prolonged (7) PAF (paroxysmal atrial fibrillation): Plan: Sinus rhythm this admission, controlled on amiodarone and metoprolol 12.5 PO BID; continue. No AC because of her anemia per prior notes. 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 Sun VTE Prophylaxis: Lovenox SQ Point of Contact: Han Mauro: [phone] Plan to return to [facility] tomorrow. We were going to dc today and still can if she starts to feel better. Discussed with nurse. No need for telemetry monitoring. DO Flaquita Mullen Hospitalist Admission and Anticipated Discharge Date Admission Date: November 12, 2021 Subjective 89 yo F seen in follow up of hypoxia, + covid 19 "I feel terrible" [place] well this am but after using flutter valve feels alot of nasal and upper airway congestion Seems to be upset by what she is coughing up. No diarrhea overnight No nausea but reports "I can't eat my supper." REports she has been up and walking around the room and states that she hasn't urinated much today "Am I being given my Lasix?" Some SOB described with episodes of coughing No conversational dyspnea or breathing issues noted Review of Systems Review of Systems: All systems were reviewed and negative except as indicated on subjective above. Physical Exam Physical Exam: CONSTITUTIONAL: WNWD, vitals as above, generally well- appearing, NAD EYES: normal conjunctivae, no scleral icterus ENT: external ear and nose normal, MMM NECK: trachea midline, RESPIRATORY: clear to auscultation bilaterally, no crackles, rales or wheezes, normal respiratory effort CARDIOVASCULAR: regular rate and rhythm, S1 and 2 heard without murmurs, gallops or rubs, no JVD, no peripheral edema CHEST: inspection of chest was normal GASTROINTESTINAL: soft, nontender, ND, no guarding MUSCULOSKELETAL: strength 5/5 throughout, head is normocephalic and atraumatic SKIN: warm and dry NEUROLOGIC: CN 2-12 grossly intact, no sensory deficit, normal cognition, normal speech, no tremor PSYCHIATRIC: alert cooperative and oriented to person, place and time. Euthymic mood, makes good eye contact, language grossly intact, recent and remote memory grossly intact. Results & Data Results & Data ([facility]) Vital Signs (Past 12 Hours) Vital Signs Temp Pulse Pulse Resp BP Pulse Ox O2 Del Method 11/18/21 09:00 71 11/18/21 08:00 Room Air 11/18/21 08:48 36.6 C 67 18 125/53 L 97 Room Air 11/18/21 03:15 36.4 C L 61 127/69 96 Room Air Laboratory Results Short CBC 11/18/21 Range/Units 07:55 WBC 4.11 L (4.8-10.8) K/ul Hgb 8.7 L (12.0-16.0) g/dl Hct 27.9 L (34.1-44.9) % Plt Count 324 (130-400) K/uL [facility] 11/18/21 07:55 Sodium 133 L Potassium 3.7 Chloride 96 L Carbon Dioxide 31 BUN 29 H Creatinine 0.82 Glucose 81 Calcium 8.7 Medications Administered Current Inpatient Medications Acetaminophen (Acetaminophen 325 Mg Tab) 650 mg PO Q4H PRN PRN Reason: Pain or Fever Stop: 12/12/21 17:15 Al Hydrox/Mg Hydrox/Simethicone (Aluminum/Magnesium Susp 30 Ml Udc) 15 ml PO Q4H PRN PRN Reason: Dyspepsia Stop: 12/12/21 17:15 Amiodarone HCl (Amiodarone 200 Mg Tab) 200 mg PO QAM [facility] Stop: 12/13/21 08:59 Last Admin: 11/18/21 08:53 Dose: 200 mg Aspirin (Aspirin 81 Mg Ectab) 81 mg PO QAM [facility] Stop: 12/13/21 08:59 Last Admin: 11/18/21 08:53 Dose: 81 mg Calcium Carbonate (Calcium Carbonate 1250mg Tab) 1,250 mg PO BID [facility] Stop: 12/12/21 20:59 Last Admin: 11/18/21 08:53 Dose: 1,250 mg Cetirizine HCl (Cetirizine Hcl 10 Mg Tablet) 10 mg PO QAM [facility] Stop: 12/13/21 08:59 Last Admin: 11/18/21 08:55 Dose: 10 mg Docusate Sodium (Docusate Sodium 100 Mg Cap) 100 mg PO BID [facility] Stop: 12/12/21 20:59 Last Admin: 11/18/21 08:56 Dose: Not Given Donepezil HCl (Donepezil Hcl 5 Mg Tab) 5 mg PO BID [facility] Stop: 12/12/21 20:59 Last Admin: 11/18/21 08:55 Dose: 5 mg Enoxaparin Sodium (Enoxaparin Inj 40 Mg/0.4 Ml Syr) 40 mg SQ HS [facility] Stop: 12/12/21 20:59 Last Admin: 11/17/21 20:49 Dose: 40 mg Fluticasone Propionate (Fluticasone Propionate Na Spr 16 Gm Btl) 2 sprays CLEMENTINA DAILY [facility] Stop: 12/18/21 12:14 Furosemide (Furosemide 40 Mg Tab) 40 mg PO QAM [facility] Stop: 12/13/21 08:59 Last Admin: 11/18/21 08:52 Dose: 40 mg Guaifenesin (Guaifenesin 600 Mg Tabcr) 600 mg PO Q12 [facility] Stop: 12/13/21 12:44 Last Admin: 11/18/21 08:52 Dose: 600 mg Hydroxyzine HCl (Hydroxyzine Hcl 10 Mg Tab) 10 mg PO TID PRN PRN Reason: Anxiety Stop: 12/14/21 12:06 Lorazepam (Lorazepam 0.5 Mg Tab) 0.5 mg PO TID PRN PRN Reason: Anxiety Stop: 12/14/21 13:37 Last Admin: 11/17/21 21:05 Dose: 0.5 mg Losartan Potassium (Losartan Potassium 25 Mg Tab) 25 mg PO QAM [facility] Stop: 12/13/21 08:59 Last Admin: 11/18/21 08:53 Dose: 25 mg Magnesium Hydroxide (Magnesium Hydroxide Susp 30 Ml Udc) 30 ml PO Q12H PRN PRN Reason: Constipation Stop: 12/12/21 17:15 Metoprolol Tartrate (Metoprolol Tartrate 25 Mg Tab) 12.5 mg PO BID [facility] Stop: 12/12/21 20:59 Last Admin: 11/18/21 08:54 Dose: 12.5 mg Montelukast Sodium (Montelukast Sodium 10 Mg Tablet) 10 mg PO HS [facility] Stop: 12/12/21 20:59 Last Admin: 11/17/21 20:49 Dose: 10 mg Ondansetron HCl (Ondansetron Inj 2 Mg/Ml 2 Ml Vial) 4 mg IV Q6H PRN PRN Reason: Nausea Stop: 12/12/21 17:15 Pantoprazole Sodium (Pantoprazole 40 Mg Tab) 40 mg PO BID [facility] Stop: 12/12/21 20:59 Last Admin: 11/18/21 08:51 Dose: 40 mg Polyethylene Glycol (Polyethylene (Miralax) 17 Gm Pack) 17 gm PO DAILY PRN PRN Reason: Constipation Stop: 12/12/21 17:15 Potassium Chloride (Potassium Chloride 10 Meq Tabcr) 10 meq PO DAILY [facility] Stop: 12/13/21 08:59 Last Admin: 11/18/21 09:03 Dose: 10 meq Sertraline HCl (Sertraline Hcl 50 Mg Tablet) 150 mg PO QAM [facility] Stop: 12/13/21 08:59 Last Admin: 11/18/21 08:52 Dose: 150 mg Spironolactone (Spironolactone 12.5 Mg Tab) 12.5 mg PO QAM [facility] Stop: 12/13/21 08:59 Last Admin: 11/18/21 08:53 Dose: 12.5 mg Umeclidinium/Vilanterol (Umeclidinium/Vilanterol 62.5/25mcg 7 Puffs/Inhaler) 1 puffs INH DAILY [facility] Stop: 12/13/21 08:59 Last Admin: 11/18/21 08:55 Dose: 1 puffs (1) COPD (chronic obstructive pulmonary disease) COPD type: COPD with acute exacerbation Qualified Code(s): J44.1 - Chronic obstructive pulmonary disease with (acute) exacerbation
[2021-11-18] MEDS: FLUTICASONE PROPIONATE NA SPR 16 GM BTL NAE SCH (13:25)
[2021-11-18] MEDS: LORazepam 0.5 MG TAB PO PRN (21:53)
[2021-11-18] MEDS: ENOXAPARIN INJ 40 MG/0.4 ML SYR SQ SCH (21:56)
[2021-11-18] MEDS: MONTELUKAST SODIUM 10 MG TABLET PO SCH (21:57)
[2021-11-19] MEDS: FLUTICASONE PROPIONATE NA SPR 16 GM BTL NAE SCH (08:10)
[2021-11-19] MEDS: SPIRONOLACTONE 12.5 MG TAB PO SCH (08:11)
[2021-11-19] MEDS: SERTRALINE HCL 50 MG TABLET PO SCH (08:11)
[2021-11-19] MEDS: ASPIRIN 81 MG ECTAB PO SCH (08:11)
[2021-11-19] MEDS: UMECLIDINIUM/VILANTEROL 62.5/25MCG 7 PUFFS/INHALER INH SCH (08:11)
[2021-11-19] MEDS: AMIODARONE 200 MG TAB PO SCH (08:11)
[2021-11-19] MEDS: CETIRIZINE HCL 10 MG TABLET PO SCH (08:11)
[2021-11-19] MEDS: FUROSEMIDE 40 MG TAB PO SCH (08:11)
[2021-11-19] MEDS: LOSARTAN POTASSIUM 25 MG TAB PO SCH (08:11)
[2021-11-19] MEDS: METOPROLOL TARTRATE 25 MG TAB PO SCH (08:12)
[2021-11-19] MEDS: PANTOprazole 40 MG TAB PO SCH (08:12)
[2021-11-19] MEDS: DONEPEZIL HCL 5 MG TAB PO SCH (08:12)
[2021-11-19] MEDS: guaiFENesin 600 MG TABCR PO SCH (08:12)
--- NOTE | 2021-11-19 11:48 | Discharge Summary ---
Discharge Summary Date of Service November 19, 2021 Notes For Next Care Provider -monitor her daily weights and adjust furosemide as needed -Flonase and robutussin given for symptom control and will not likely be needed after just a few days -home isolation recommended for 10 days since symptom onset (first day clear of isolation is 11/23) Medication Changes From Visit Flonase, 2 sprays nasal daily PRN congestion symptoms Robitussin cough syrup as needed for cough. Admission HPI Per Admitting Provider Ms. Arevalo is an 89 year old female that presented to the [facility] from [facility] with increased SOB and weakness that has been occuring over the past 3 days. + orthopnea over past 24 hours. She has a significant past medical history of left breast cancer s/p left radical mastectomy, radiation pneumonitis, concerning right upper lobe lesion for possible carcinoma status post empiric radiation, asthmaCOPD, HTN, HFpEF, Senile Degeneration of the Brain, pAF, and anemia of chronic disease. Pt with increasing inpatient hospitalizations 06/24 to 06/29/2021, 07/06-07/09 for SOB and secondary to acute HFpEF and most recently 10/02-10/05 s/p fall. She underwent thoracentesis on right at 800 mL in June and it was transudative and negative for malignancy. Pt has senile degeneration of the brain and is able to communicate, but is a poor historian overall. She does deny SOB, MILNER, dizziness, abdominal pain, CP, palpitations, bowel changes, appetite changes. Patient appears more frail than previous encounters. Patient did test positive for COVID-19 in the ED and was placed on airborne precautions. Patient will be admitted under hospitalist service for further management. Admission Exam Per Admitting Provider Physical Exam: Neuro: AAOx4, PERRLA, no aphagia, memory changes, CNII-XII grossly intact. Poor historian HEENT: head normocephalic, moist mucus membranes CV: S1/S2, (-) M/G/R, (-) edema, cap refill < 3 seconds Resp: 2LNC; some wheezes in bases. GI: Abdomen S/NT/ND, Ax4 bowel sounds, (-) CVA tenderness Musculoskeletal: 5/5 B/L UE strength, 5/5 B/L LE strength. No gait disturbance Skin: (-) rashes , (-) erythema. Psych: euthymic mood; confused Principal Dx & Hospital Course #1 = Principal Diagnosis (1) COVID-19: Improved with residual cough, Completed course of remdesivir and daily decadron this admission. Cont supportive therapy. Start Flonase. Given Robitussin AC now as trial. (2) Acute on chronic heart failure with preserved ejection fraction: Presented with hypervolemia and pleural effusions on CXR. Progressive SOB in setting of COVID and wheezing. She has received daily IV Lasix along with her PO home Lasix and has seen an improvement overall in pleural effusions and pulmonary edema on CXR. She is breathing at her baseline. Appears euvolemic on exam. Cont Lasix 40mg PO daily per her home dosing. cont aldactone per home regimen. (3) COPD (chronic obstructive pulmonary disease): She had some wheezing in the bases and has had some steroids this admission as well as doxycycline. Presumably this was for a COPD exacerbation in setting of covid as was initially documented on H&P. Today there is resolution of hypoxia, no wheezing and she is breathing at baseline. Bronchodilators PRN Cont home inhaler therapy. (4) HTN (hypertension): chronic, controlled, continue losartan and spironolactone. (5) Anemia of chronic disease: chronic, at goal OP Gi recommends PPI continuation; feels risk > benefit of scope at this point, normal egd in 2019 Ferritin level 30 (normal/low) monitor H&H, current Hgb ~9 (6) Breast cancer, left: s/p left mastectomy hx of L breast ca hx of lung carcinoma s/p XRT hx of radiation pneumonitis Follow-up outpatient urology consultation rec to exclude the possibility of a bladder lesion; consider Urology consult if inpatient hospitalization prolonged (7) PAF (paroxysmal atrial fibrillation): Sinus rhythm this admission, controlled on amiodarone and metoprolol 12.5 PO BID; continue. No AC because of her anemia per prior notes. (8) Senile degeneration of brain: Takes Aricept; continue Relatively independent with ADL's PT/OT eval and treat orders placed; uses walker at baseline Code: DNR/DNI PCP: Dr. Sun VTE Prophylaxis: Lovenox SQ Point of Contact: Han Mauro: [phone] Plan to return to [facility]-likely tomorrow. We were going to dc today and still can if she starts to feel better. Discussed with nurse. No need for telemetry monitoring. [facility] Discharge Exam CONSTITUTIONAL: WNWD, vitals as above, generally well-appearing, NAD EYES: normal conjunctivae, no scleral icterus ENT: external ear and nose normal, MMM NECK: trachea midline, RESPIRATORY: clear to auscultation bilaterally, mild crackles on the right base (just sat up from lying down and took first big deep breath), rales or wheezes, normal respiratory effort CARDIOVASCULAR: regular rate and rhythm, S1 and 2 heard without murmurs, gallops or rubs, no JVD, no peripheral edema CHEST: inspection of chest was normal GASTROINTESTINAL: soft, nontender, ND, no guarding MUSCULOSKELETAL: strength 5/5 throughout, head is normocephalic and atraumatic SKIN: warm and dry NEUROLOGIC: CN 2-12 grossly intact, no sensory deficit, normal cognition, normal speech, no tremor PSYCHIATRIC: alert cooperative and oriented to person, place and time. Euthymic mood, makes good eye contact, language grossly intact, recent and remote memory grossly intact. Updated Medication List Medication Instructions Recorded Confirmed Type losartan 25 mg tablet 25 mg PO QAM 03/07/18 11/12/21 History aspirin 81 mg tablet,delayed 81 mg PO QAM 04/30/21 11/12/21 History release montelukast 10 mg tablet 10 mg PO HS 04/30/21 11/12/21 History tiotropium 2.5 mcg-olodaterol 2.5 1 puff inhalation QAM 04/30/21 11/12/21 History mcg/actuation mist for inhalation (Stiolto Respimat) acetaminophen 325 mg tablet 650 mg PO Q4H PRN Pain 06/24/21 11/12/21 History (Tylenol) calcium carbonate 500 mg calcium 500 mg PO BID 06/24/21 11/12/21 History (1,250 mg) chewable tablet docusate sodium 100 mg capsule 100 mg PO BID 06/24/21 11/12/21 History (Colace) donepezil 5 mg tablet 5 mg PO BID 06/24/21 11/12/21 History lorazepam 0.5 mg tablet 0.5 mg PO TID 06/24/21 11/12/21 History sertraline 100 mg tablet 150 mg PO QAM 07/06/21 11/12/21 History furosemide 40 mg tablet 40 mg PO QAM #30 tabs 07/09/21 11/12/21 Rx potassium chloride 10 mEq 10 meq PO DAILY #30 tabs 07/09/21 11/12/21 Rx tablet,extended release(part/cryst) benzonatate 100 mg capsule 100 mg PO TID PRN cough #30 caps 09/09/21 11/12/21 Rx amiodarone 200 mg tablet 200 mg PO QAM 10/02/21 11/12/21 History cetirizine 10 mg tablet (Zyrtec) 10 mg PO QAM 10/02/21 11/12/21 History metoprolol tartrate 25 mg tablet 12.5 mg PO BID 10/02/21 11/12/21 History pantoprazole 40 mg tablet,delayed 40 mg PO BID 10/02/21 11/12/21 History release spironolactone 25 mg tablet 12.5 mg PO QAM 10/02/21 11/12/21 History fluticasone propionate 50 2 spray CLEMENTINA DAILY PRN nasal 11/19/21 Rx mcg/actuation nasal congestion #16 grams spray,suspension guaifenesin 100 mg/5 mL oral liquid 200 mg (10 mL) PO Q6H PRN cough 11/19/21 Rx #500 mL Hospital Stay Data Consultations 11/12/21 14:12 ED Decision to Admit Stat Diagnostic Imagining Performed 11/12/21 18:30 CT angio chest PE protocol Urgent Pending Results Patient Have Any Pending Studies at Discharge: No Discharge Instructions Given to Patient (Per Discharging Provider) Please take all medications as instructed on dischage list below. Flonase for symptom control is recommended for the next few days, up to a week. You may stop if you are feeling better You are being given some cough syrup to take as needed for cough only. You may only need this for a short period of time, also. You had a CT scan of your chest on 11/12 revealing a worsening T11 compression fracture resulting in moderate canal stenosis. Per therapy, you have been ambulating at baseline without pain. However, if you develop any worsening back pain, please contact your physician for treatment options. This CT scan also showed subacute healing nondisplaced rib fractures on the left side. Supportive care is recommended as needed and these will heal on their own. Please continue isolating away from others until 11/23, which is 10 days after symptom onset. If you still have symptoms at this time, including coughing, please consider extending the isolation or wearing a plain surgical mask around others. It was a pleasure taking care of you! Please call if you have any questions or problems. You can reach a [facility] hospitalist on duty at [facility] 24 hours a day by calling [phone]. Take care of yourself. Prema Reyes, [facility] Northern Californiaist Total Time Total Time Spent Total Time Spent (In Minutes): 60
[2021-11-19 11:54] VITALS: BP 116/67; PULSE 60; TEMP 97.5; O2SAT 96
[2021-11-19] MEDS: POTASSIUM CHLORIDE 10 MEQ TABCR PO SCH (12:29)
[2021-11-19] MEDS: DOCUSATE SODIUM 100 MG CAP PO SCH (12:29)
[2021-11-19] MEDS: CALCIUM CARBONATE 1250MG TAB PO SCH (12:29)
== END 2021-11-19 16:05 | disposition home or self-care (01) | DRG 177 ==
LOC: ED 12:09 → SUATTDRO 14:22 → EDINP 14:22 → 2S 20:21

== ENCOUNTER 2021-11-29 11:59 | Observation (INO) ==
--- NOTE | 2021-11-29 12:28 | Emergency Department Note ---
History of Present Illness General Chief complaint: Back Injury/Pain Stated complaint: BACK PAIN Time Seen by Provider: 11/29/21 12:19 History of Present Illness Maximum Pain Intensity: 8 This is an 89-year-old female with a complex past medical history the presents to the emergency department via private vehicle accompanied by son with complaints of "back pain". Patient and son at bedside notes that she fell several weeks ago. There was a fracture noted and she was following up with [facility]. However, over the past few days she notes severe pain to the left low back area. At rest pain is minimal but if she attempts to turn to the right from a supine position she notes severe pain to this area current pain 8/10. No fevers or chills. No loss of control or bowel/bladder. No leg weakness. No abdominal pain. No blood in the stool or urine. No headache or neck pain. No chest pain or shortness of breath. No fevers. Home Medications Medication Instructions Recorded Confirmed Type losartan 25 mg tablet 25 mg PO QAM 03/07/18 11/12/21 History aspirin 81 mg tablet,delayed 81 mg PO QAM 04/30/21 11/12/21 History release montelukast 10 mg tablet 10 mg PO HS 04/30/21 11/12/21 History tiotropium 2.5 mcg-olodaterol 2.5 1 puff inhalation QAM 04/30/21 11/12/21 History mcg/actuation mist for inhalation (Stiolto Respimat) acetaminophen 325 mg tablet 650 mg PO Q4H PRN Pain 06/24/21 11/12/21 History (Tylenol) calcium carbonate 500 mg calcium 500 mg PO BID 06/24/21 11/12/21 History (1,250 mg) chewable tablet docusate sodium 100 mg capsule 100 mg PO BID 06/24/21 11/12/21 History (Colace) donepezil 5 mg tablet 5 mg PO BID 06/24/21 11/12/21 History lorazepam 0.5 mg tablet 0.5 mg PO TID 06/24/21 11/12/21 History sertraline 100 mg tablet 150 mg PO QAM 07/06/21 11/12/21 History furosemide 40 mg tablet 40 mg PO QAM #30 tabs 07/09/21 11/12/21 Rx potassium chloride 10 mEq 10 meq PO DAILY #30 tabs 05/13/22 09/16/22 Rx tablet,extended release(part/cryst) benzonatate 100 mg capsule 100 mg PO TID PRN cough #30 caps 09/09/21 11/12/21 Rx amiodarone 200 mg tablet 200 mg PO QAM 10/02/21 11/12/21 History cetirizine 10 mg tablet (Zyrtec) 10 mg PO QAM 10/02/21 11/12/21 History metoprolol tartrate 25 mg tablet 12.5 mg PO BID 10/02/21 11/12/21 History pantoprazole 40 mg tablet,delayed 40 mg PO BID 10/02/21 11/12/21 History release spironolactone 25 mg tablet 12.5 mg PO QAM 10/02/21 11/12/21 History fluticasone propionate 50 2 spray CLEMENTINA DAILY PRN nasal 11/19/21 Rx mcg/actuation nasal congestion #16 grams spray,suspension guaifenesin 100 mg/5 mL oral liquid 200 mg (10 mL) PO Q6H PRN cough 11/19/21 Rx #500 mL Allergies Allergy/AdvReac Type Severity Reaction Status Date / Time bee venom protein (honey bee) Allergy Severe ANAPHYLAXIS Verified 10/02/21 17:08 Past Med/Surg History Medical History Abnormal CT of the chest Acute on chronic heart failure with preserved ejection fraction Anemia of chronic disease Anxiety Anxiety Asthma USING RESCUE INHALER FREQUENTLY/DAILY Asthma-COPD overlap syndrome Cancer BREAST CANCER-LEFT MASTECTOMY Chronic obstructive pulmonary disease COPD (chronic obstructive pulmonary disease) COVID-19 Deep vein thrombosis 15 YEARS AGO S/P LEG SURGERY Dysphagia HX ESOPHAGEAL STRETCHING Fall GERD (gastroesophageal reflux disease) History of pulmonary embolism HTN (hypertension) Hypertension Osteoarthritis PAF (paroxysmal atrial fibrillation) Prolapsed bladder Pulmonary nodule, right Rectal bleeding Senile degeneration of brain Surgical History History of cataract surgery RT/LEFT History of colonoscopy History of esophagogastroduodenoscopy (EGD) History of mastectomy LEFT (NO BP/LAB DRAWS) History of tonsillectomy History of tooth extraction History of total hysterectomy with bilateral salpingo-oophorectomy (BSO) History of total knee replacement LEFT/RT Family History Other Family history non-contributory Social History Smoking Status: Never smoker Second Hand Exposure: No; Hx Alcohol Use: No Hx Substance Use: No Preferred Language: Kazakh Communication Ability: Effective Photo Specialist Required: No Beliefs That Will Affect Care: Moravian marital status: Unknown Current Living Situation: Personal Care Facility Current Living Situation Comment: [facility] Feels Safe at Home: Yes Childhood Exposure to Second-Hand Smoke: Yes Dental Care, Regularly: Yes Assistive Devices: Walker Review of Systems A total of 10 systems reviewed and were otherwise negative Physical Exam Vital Signs Vital Signs - 24 hr 11/29/21 12:03 11/29/21 14:19 Temperature 36.7 C Temperature Source Temporal Artery Scan Pulse Rate 70 Pulse Rate [Left Finger] 73 Pulse Rhythm Regular Pulse Strength Normal Respiratory Rate 18 16 Respiratory Effort / Characteristics Non-Labored Spontaneous Respiratory Depth Normal Respiratory Pattern Regular Blood Pressure 152/68 H Blood Pressure [Right Arm] 166/84 H Blood Pressure Mean 96 Blood Pressure Mean [Right Arm] 111 Blood Pressure Position Sitting Blood Pressure Position [Right Arm] Lying Pulse Oximetry 98 96 Oxygen Delivery Method Room Air Sepsis Recent Fever Within 48 Hours No Sepsis New/Unexplained Change in Mental Status No Sepsis Action Taken by Nursing No Action Required VITAL SIGNS - Vital signs and nursing notes were reviewed. Stable and afebrile. GENERAL - 89-year-old female appearing her stated age who is in no acute distress. Communicates well with provider and answers questions appropriately. SKIN - Without rashes. Skin overlying the back is unremarkable. No fluctuance or crepitus HEAD - NC/AT. EYES - PERRL with EOMI bilaterally. Sclera anicteric. EARS - No deformities of external structures noted on gross examination bilaterally. NOSE - Midline and without cyanosis. No epistaxis or purulent drainage noted. MOUTH/OROPHARYNX - Without perioral cyanosis. NECK - Neck with FROM. No nuchal rigidity. LUNGS - CTA CARDIAC - RRR ABDOMEN - Abdominal contour normal without pulsations or visible masses. BS normoactive all four quadrants. No tenderness, palpable masses, hepatosplenomegaly, or ascites noted. EXTREMITIES - No clubbing or peripheral cyanosis. Patient is able to actively flex at the hip and lift her legs independently via straight leg raise actively. No deficits. +5/5 strength noted in UE/LE bilaterally. MUSCULOSKELETAL: There is reproducible tenderness to palpation overlying the patient's left low back region/left posterior pelvis/sacral region. No left lateral hip tenderness. NEUROLOGIC - Cranial nerves II through XII grossly intact. PSYCH - A&Ox3 and cooperates fully with examiner. Pt is very pleasant and interacts well with examiner. Medical Decision Making Laboratory Data Lab Results 11/29/21 Range/Units 14:17 SARS-CoV-2, RNA, NAAT POSITIVE A* (NEGATIVE) Imaging Data Radiologist's Impression: Femur X-Ray 11/29/21 12:27 XR femur LT 2V routine HISTORY: 89 years-old Female L low back/hip pain . Acute pain of the pelvis and left hip status post fall COMPARISON: CT pelvis of same day, pelvis radiographs 09/08/2020 TECHNIQUE: 2 views of the left femur FINDINGS: Moderate to severe osteoarthritis of the left hip. No acute fracture, dislocation or avascular necrosis. Unremarkable appearance of the visualized total joint arthroplasty. Arterial calcifications. Unremarkable soft tissues. IMPRESSION: No acute fracture or dislocation. ACT 112: Negative or not required by law. The above report was generated using voice recognition software. It may contain grammatical, syntax or spelling errors. Electronically signed by: Tony Zaragoza M.D. 11/29/2021 1:[address] 11/29/21 12:[address] DOSE: 315.43 mGycm HISTORY: L low back/hip pain TECHNIQUE: Multiaxial CT images of the lumbar spine were performed and reformatted in the sagittal and coronal plane without the use of contrast. A dose lowering technique was utilized adhering to the principles of ALARA. COMPARISON: Thoracic spine CT 11/29/2021. Lumbar spine CT 10/02/2021. FINDINGS: Old mild superior endplate compression deformity at L5 with 5 mm of retropulsion the posterior superior corner. This remains unchanged. No acute fractures identified within the lumbar spine. Please refer to the same day thoracic spine CT for further evaluation of the partially visualized T12 fracture. Moderate to severe facet degenerative changes throughout the lumbar spine. There is moderate disc space narrowing at L3-L4 and L4-5. Bilateral pleural effusions are partially visualized. The visualized sacrum is intact. Right-sided nephrolithiasis is noted. Paravertebral soft tissues are unremarkable. Severe central canal narrowing at L3-L4 and L4-5 persist. [id number] central canal narrowing at L5-S1. IMPRESSION: 1. No acute fractures within the lumbar spine. 2. The partially visualized T12 fracture is better appreciated on the same day thoracic spine CT. 3. Degenerative changes again noted which is similar to the prior study. 4. Old L5 compression deformity, unchanged. ACT 112: Negative or not required by law. Electronically signed by: Eulalio Pinon M.D. 11/29/2021 1:[address] 11/29/21 12:27 CT pelvis wo con HISTORY: 89 years-old Female L low back/hip pain . Acute pain of the mid to low back and pelvis status post fall. Follow-up study in a patient with a subacute sacral fracture. COMPARISON: CT thoracic and lumbar spine studies of same day, CT abdomen and pelvis 10/02/2021 TECHNIQUE: Multiple axial CT images of the pelvis were obtained without the use of IV contrast. A dose lowering technique was used consistent with the principals of ALARA. FINDINGS: 7 mm nodule involving the anterior wall of the urinary bladder is redemonstrated on image 69 series 3. No acute process of the imaged intrapelvic structures. Distended gallbladder with layering sludge versus cholelithiasis. Colonic diverticulosis. Normal appendix. Mild generalized body wall edema. Atherosclerosis of aorta and branch vessels. Demineralized appearance of the bones with advanced degenerative changes of the imaged lower lumbar spine. Mild superior endplate compression of L5 is unchanged. Healing subacute fracture involving the S4 segment demonstrates unchanged alignment. Chondrocalcinosis of the hips. Moderate to severe left with severe right hip osteoarthritis. No acute fracture or dislocation identified. IMPRESSION: 1. No acute fracture identified. 2. Healing subacute sacral fracture at the S4 level demonstrates unchanged alignment compared to the 10/02/2021 exam. 3. 7 mm soft tissue nodule involving the anterior wall of the urinary bladder is again noted. 4. Chronic T12 compression deformity. ACT 112: Negative or not required by law. The above report was generated using voice recognition software. It may contain grammatical, syntax or spelling errors. Electronically signed by: Tony Zaragoza M.D. 11/29/2021 1:[address] 11/29/21 12:28 CT OF THE THORACIC SPINE CLINICAL HISTORY: Low back pain following fall. COMPARISON STUDY: Thoracic spine CT October 03, 2021. Chest CT November 12, 2021. TECHNIQUE: Helical axial images of the thoracic spine were obtained. Sagittal and coronal reconstructions were viewed. Automated exposure control was utilized for the study. A dose lowering technique was utilized adhering to the principles of ALARA. FINDINGS: Right upper lobe airspace opacity is noted. This may reflect postradiation change. This is unchanged since chest CT of November 12, 2021. Bilateral pleural effusions, left larger than right, are also similar to prior chest CT. Cardiomegaly is noted with extensive mitral annular calcification. A T11 burst fracture is again noted. There is 80% loss of vertebral body height. This has increased since prior exam. Retropulsion has increased. There is moderate central canal stenosis. Healing fracture through the spinous process of T10 is noted. There is an acute T12 burst fracture with minimal retropulsion. There is 40% loss of vertebral body height centrally. Old T1 compression fracture is present. This is unchanged. There are multiple subacute to chronic bilateral posterior rib fractures. Central canal and neural foramen are suboptimally assessed given CT technique. IMPRESSION: 1. Redemonstration of a T11 burst fracture with 80% loss of vertebral body height which has increased since prior study chest CT of November 12, 2021. Slight increase in retropulsion which results in moderate central canal stenosis at this level. 2. Acute T12 burst fracture with moderate loss of vertebral body height and minimal retropulsion with disruption of the posterior cortex. 3. Subacute fracture of the spinous process of T10. 4. Multiple subacute to chronic bilateral posterior rib fractures. 5. Bilateral pleural effusions, left larger than right, similar to chest CT of November 12, 2021. ACT 112: Negative or not required by law. Electronically signed by: Kemal Elizabeth M.D. 11/29/2021 1:30 PM [facility] Narrative Patient was seen and evaluated as above in room D02. Review was performed of nursing notes and vital signs. I did review pertinent previous visits and patient history. After obtaining a thorough history and physical examination the above work up was performed. Patient was seen here on 10/02/2021 secondary to fall. She had a fracture in the lower T-spine as well as the sacral region. She was admitted to the hospital at that time. She clinically appears well and nontoxic and in minimal pain at rest while in the supine position however when she attempts to turn to the right she notes severe pain and points to the left low back region/left pelvis posteriorly. Patient was offered analgesics while here in the emergency department and respectfully declined. The patient does not have any findings on examination to suggest new acute trauma. No bruising. There are no signs of head trauma. Patient denies any headache. No neck pain. No chest pain or abdominal pain. She denies any trouble breathing. Options of care were discussed with the patient and son at bedside. She clinically appears well nontoxic. When she is not moving and is laying in the supine with head of bed slightly elevated position she clinically appears well and nontoxic. However, when she attempts to rotate the upper torso towards the right she notes discomfort in the low back. She does not have any findings to suggest infectious etiology or cauda equina syndrome. No neurovascular deficit. Given the patient's previous injuries now with worsening pain today I did recommend CT images. These were obtained of the T-spine, L-spine and pelvis. No indication to scan the head or neck as there has been no reported trauma recently and no evidence of trauma to these areas. She also does not have any headache or neck pain. CT imaging as above. Unfortunately the patient does have a worsening T11 burst fracture now with an acute T12 burst fracture. I discussed these findings with the spine group that the patient has previously followed with. I spoke to Kerry Murrell PA-C. We will make the patient n.p.o. after midnight as she may require surgical intervention tomorrow. Case then discussed with the hospitalist service. I spoke with [facility] hospitalist service (TEVIN Reid). The patient will be admitted to the medicine service for further evaluation and management. Please refer to further documentation regarding her stay. Case was discussed with the attending physician. GCS: 15 In the evaluation and treatment of this patient the following differential diagnoses were entertained: Fracture, dislocation, subluxation, contusion, epidural hematoma, osteomyelitis, discitis, cauda equina syndrome, among others. Impression & Plan Left low back pain, Burst fracture of thoracic vertebra Discharge Plan Visit Data Chief Complaint: Back Injury/Pain Stated Complaint: BACK PAIN ED Provider: Yomi Molina ED Midlevel Provider: Bryant Jolly Discharge Problem: Left low back pain, Burst fracture of thoracic vertebra Patient Disposition: Admitted As Inpatient Condition: Good Forms Stand Alone Forms: [facility] Prescriptions Prescriptions: No Action losartan 25 mg Tablet 25 mg PO QAM aspirin 81 mg Tablet,Delayed Release (Dr/Ec) 81 mg PO QAM Stiolto Respimat 2.5-2.5 mcg/actuation Mist 1 puff INHALATION QAM montelukast 10 mg tablet 10 mg PO HS Rx Instructions: TAKE 1 TABLET BY MOUTH EVERYDAY AT BEDTIME acetaminophen [Tylenol] 325 mg Tablet 650 mg PO Q4H PRN (Reason: Pain) donepezil 5 mg Tablet 5 mg PO BID lorazepam 0.5 mg Tablet 0.5 mg PO TID Rx Instructions: TAKES AT 0630, 1500 & 2000. docusate sodium [Colace] 100 mg Capsule 100 mg PO BID calcium carbonate 500 mg calcium (1,250 mg) Tablet,Chewable 500 mg PO BID benzonatate 100 mg capsule 100 mg PO TID PRN (Reason: cough) Qty: 30 0RF cetirizine [Zyrtec] 10 mg Tablet 10 mg PO QAM amiodarone 200 mg tablet 200 mg PO QAM spironolactone 25 mg tablet 12.5 mg PO QAM pantoprazole 40 mg tablet,delayed release (DR/EC) 40 mg PO BID metoprolol tartrate 25 mg tablet 12.5 mg PO BID sertraline 100 mg tablet 150 mg PO QAM furosemide 40 mg Tablet 40 mg PO QAM Qty: 30 0RF potassium chloride 10 mEq Tablet,Er Particles/Crystals 10 meq PO DAILY Qty: 30 0RF fluticasone propionate 50 mcg/actuation [place],Suspension 2 spray CLEMENTINA DAILY PRN (Reason: nasal congestion) Qty: 16 0RF guaifenesin 100 mg/5 mL liquid 200 mg PO Q6H PRN (Reason: cough) Qty: 500 0RF Referrals Referrals: [facility] [Primary Care Provider] -
--- NOTE | 2021-11-29 13:32 | CT Scan Report ---
CT OF THE THORACIC SPINE CLINICAL HISTORY: Low back pain following fall. COMPARISON STUDY: Thoracic spine CT October 03, 2021. Chest CT November 12, 2021. TECHNIQUE: Helical axial images of the thoracic spine were obtained. Sagittal and coronal reconstru ctions were viewed. Automated exposure control was utilized for the study. A dose lowering techniqu e was utilized adhering to the principles of ALARA. FINDINGS: Right upper lobe airspace opacity is noted. This may reflect postradiation change. This is unchanged since chest CT of November 12, 2021. Bilateral pleural effusions, left larger than right, are also similar to prior chest CT. Cardiomegaly is noted with extensive mitral annular calcification . A T11 burst fracture is again noted. There is 80% loss of vertebral body height. This has increased since prior exam. Retropulsion has increased. There is moderate central canal stenosis. Healing frac ture through the spinous process of T10 is noted. There is an acute T12 burst fracture with minimal r etropulsion. There is 40% loss of vertebral body height centrally. Old T1 compression fracture is pre sent. This is unchanged. There are multiple subacute to chronic bilateral posterior rib fractures. Ce ntral canal and neural foramen are suboptimally assessed given CT technique. IMPRESSION: 1. Redemonstration of a T11 burst fracture with 80% loss of vertebral body height which has increased since prior study chest CT of November 12, 2021. Slight increase in retropulsion which results in m oderate central canal stenosis at this level. 2. Acute T12 burst fracture with moderate loss of vertebral body height and minimal retropulsion with disruption of the posterior cortex. 3. Subacute fracture of the spinous process of T10. 4. Multiple subacute to chronic bilateral posterior rib fractures. 5. Bilateral pleural effusions, left larger than right, similar to chest CT of November 12, 2021. ACT 112: Negative or not required by law. Electronically signed by: Kemal Elizabeth M.D. 11/29/2021 1:30 PM
--- NOTE | 2021-11-29 13:45 | CT Scan Report ---
LUMBAR SPINE CT CT DOSE: 315.43 mGycm HISTORY: L low back/hip pain TECHNIQUE: Multiaxial CT images of the lumbar spine were performed and reformatted in the sagittal an d coronal plane without the use of contrast. A dose lowering technique was utilized adhering to the principles of ALARA. COMPARISON: Thoracic spine CT 11/29/2021. Lumbar spine CT 10/02/2021. FINDINGS: Old mild superior endplate compression deformity at L5 with 5 mm of retropulsion the drill bit sharpener ior superior corner. This remains unchanged. No acute fractures identified within the lumbar spine. P lease refer to the same day thoracic spine CT for further evaluation of the partially visualized T12 fracture. Moderate to severe facet degenerative changes throughout the lumbar spine. There is moderat e disc space narrowing at L3-L4 and L4-5. Bilateral pleural effusions are partially visualized. The v isualized sacrum is intact. Right-sided nephrolithiasis is noted. Paravertebral soft tissues are unre markable. Severe central canal narrowing at L3-L4 and L4-5 persist. Zesi-ev-fhhnhsgt central canal na rrowing at L5-S1. IMPRESSION: 1. No acute fractures within the lumbar spine. 2. The partially visualized T12 fracture is better appreciated on the same day thoracic spine CT. 3. Degenerative changes again noted which is similar to the prior study. 4. Old L5 compression deformity, unchanged. ACT 112: Negative or not required by law. Electronically signed by: Eulalio Pinon M.D. 11/29/2021 1:43 PM
--- NOTE | 2021-11-29 13:51 | CT Scan Report ---
CT pelvis wo con HISTORY: 89 years-old Female L low back/hip pain . Acute pain of the mid to low back and pelvis stat us post fall. Follow-up study in a patient with a subacute sacral fracture. COMPARISON: CT thoracic and lumbar spine studies of same day, CT abdomen and pelvis 10/02/2021 TECHNIQUE: Multiple axial CT images of the pelvis were obtained without the use of IV contrast. A dos e lowering technique was used consistent with the principals of KASSANDRA. FINDINGS: 7 mm nodule involving the anterior wall of the urinary bladder is redemonstrated on image 69 series 3 . No acute process of the imaged intrapelvic structures. Distended gallbladder with layering sludge v ersus cholelithiasis. Colonic diverticulosis. Normal appendix. Mild generalized body wall edema. Athe rosclerosis of aorta and branch vessels. Demineralized appearance of the bones with advanced degenerative changes of the imaged lower lumbar s pine. Mild superior endplate compression of L5 is unchanged. Healing subacute fracture involving the S4 segment demonstrates unchanged alignment. Chondrocalcinosis of the hips. Moderate to severe left w ith severe right hip osteoarthritis. No acute fracture or dislocation identified. IMPRESSION: 1. No acute fracture identified. 2. Healing subacute sacral fracture at the S4 level demonstrates unchanged alignment compared to the 10/02/2021 exam. 3. 7 mm soft tissue nodule involving the anterior wall of the urinary bladder is again noted. 4. Chronic T12 compression deformity. ACT 112: Negative or not required by law. The above report was generated using voice recognition software. It may contain grammatical, syntax o r spelling errors. Electronically signed by: Tony Zaragoza M.D. 11/29/2021 1:50 PM
--- NOTE | 2021-11-29 13:52 | XRay Report ---
XR femur LT 2V routine HISTORY: 89 years-old Female L low back/hip pain . Acute pain of the pelvis and left hip status post fall COMPARISON: CT pelvis of same day, pelvis radiographs 09/08/2020 TECHNIQUE: 2 views of the left femur FINDINGS: Moderate to severe osteoarthritis of the left hip. No acute fracture, dislocation or avascular necros is. Unremarkable appearance of the visualized total joint arthroplasty. Arterial calcifications. Unre markable soft tissues. IMPRESSION: No acute fracture or dislocation. ACT 112: Negative or not required by law. The above report was generated using voice recognition software. It may contain grammatical, syntax o r spelling errors. Electronically signed by: Tony Zaragoza M.D. 11/29/2021 1:51 PM
--- NOTE | 2021-11-29 14:21 | History & Physical Report ---
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 T10-T11 sub acute fracture from 10/02/21. Following [facility]. Today, acute T12 fx on thoracic spine. Recently completed COVID tx (steroids and Remdesivir - originally tested + 11/12) Dr. Hurley consulted for possible Kyphoplasty; MRI pending; NPO after MN, pain control. CT thoracic spine 1. Redemonstration of a T11 burst fracture with 80% loss of vertebral body height which has increased since prior study chest CT of November 12, 2021. Slight increase in retropulsion which results in moderate central canal stenosis at this level. 2. Acute T12 burst fracture with moderate loss of vertebral body height and minimal retropulsion with disruption of the posterior cortex. 3. Subacute fracture of the spinous process of T10. 4. Multiple subacute to chronic bilateral posterior rib fractures. 5. Bilateral pleural effusions, left larger than right, similar to chest CT of November 12, 2021. Acute T12 burst fracture; Subacute T10 spinous process fracture; T11 fracture Back pain due to above T10-T11 fracture s/p fall on 10/02/21 Was seeing [facility] for bilateral chronic rib fractures and was wearing a vest brace Three days ago increased pain in lower back. No neurodeficits noted Was not on any biphosphonates last admission; Ca+Carbonate added. Should consider OPT eval for Prolia/Fosomax given sponatenous multiple compression fractures Pt was on Alendronate prior and it was stopped by PCP to avoid increased fragility syndrome. Last Dexa 2018; did show some worsening in the left hip area although the low lumbar area remained unchanged. Orthopedics consultation placed; discussed with Kerry Murrell. Greately appreciate assistance. NPO after MN for possible kyphoplasty in AM after Ortho review Obtain MRI of thoracic spine Lidoderm patch, Tylenol q6hr, and Morphine PRN for optimal pain control Hold ASA in AM Resume diet if no intervention HFpEF: no LE swelling Recent admission with acute on chronic CHF 11/12-11/18 Stable; on RA. Takes Metoprolol, Aldactone, Furosemide, PO KCl; continue Recent echocardiogram during last admission reviewed; EF 65 to 70%, left atrium severely dilated, mild MS, mild TR, moderate MR, severe pulmonary hypertension monitor on tele. Paroxysmal Atrial Fibrillation: HTN: rate/rhythm controlled on amiodarone and metoprolol 12.5 PO BID no oral anticoagulation in setting of chronic anemia at this point Continue Losartan COPD (chronic obstructive pulmonary disease) COVID: Last admission Covid positive in ED. Previously vaccinated. Received steroids and completed 5 day course of Remdesivir Discussed with Keri Truong; no need for isolation. Day #18 since symptom onset. Private room on admission. Last PFT's 04/2019: FEV1 1.17 Continue maintenance inhaler.; Megha Riddle Had a thoracentesis for large pleural effusion in June; 700 ml removed, non malignant. CXR in AM ISB Continue COPD medications; Montelukast Last PFT's 04/2019: FEV1 1.17 Anemia of chronic disease: Unspecified, microcytic. Hgb 8.9 on admit Pt denies any nasima red or black/tarry stools. normal egd in 2019 Hold ASA continue iron supplementation at discharge Cancer: s/p left mastectomy hx of L breast ca hx of lung carcinoma s/p XRT hx of radiation pneumonitis Follow-up urology consultation recommended to exclude the possibility of a bladder lesion. Recommend outpatient Urology follow up. Depression, unspecified: Continue Sertraline; Making comments this admission about being tired. No SI. Recent inpatient admission with OD with Ativan over the past year. pt denies SI Continue Ativan 0.5 mg PO TID Senile degeneration of brain: Takes Aricept; continue Fast score: 6a Relatively independent with ADL's Dispo: Code: DNR/DNI PCP: Dr. Sun VTE Prophylaxis: TEDS/SCDS Point of Contact: Han Mauro: [phone]- Updated at bedside Plan to return to [facility] at OR I personally was able to review all current laboratory work and diagnostic images obtained in the ED. Additionally, I was able to review the patients past medication reconciliation and history with direct visualization in the patients chart. Patient plan of care was discussed with Dr. Matthew. History of Present Illness Chief Complaint: increased pain Primary Care Provider: [facility] This is an 89-year-old female with a complex past medical history the presents to the ED with her son, Morgan with increased back pain. She had a fall with a subsequent hospital admission from 10/02-10/05 2021 with a T10-T11 subacute burst fracture that was noted. The patient was following with [facility] outpatient for chornic bilateral rib fractures with vest therapy as well. She noticed over the past 3 days her back pain has become increasingly more uncomfortable. She denies any additional falls, trauma, no neuropathy or tingling down either extremity, loss of bowel or bladder control, blurry vision, double vision, SOB, CP, palpitations, N/V/D, constipation, new skin rashes, no fevers. Thoracic spine CT revealed: T11 burst fracture with 80% loss of vertebral body height which has increased since prior study chest CT of November 12, 2021, an Acute T12 burst fracture, subacute fracture of the spinous process of T10 and multiple subacute to chronic bilateral posterior rib fractures. She has an extensive PMH that includes: left breast cancer s/p left radical mastectomy, radiation pneumonitis, concerning right upper lobe lesion for possible carcinoma status post empiric radiation, asthmaCOPD, HTN, HFpEF, Senile Degeneration of the Brain, pAF, and anemia of chronic disease. Pt with increasing inpatient hospitalizations 06/24 to 06/29/2021, 07/06-07/09 for SOB and secondary to acute HFpEF. She also had an admission recently 11/12-11/18 for acute on chronic CHF also with testing positive for COVID-19 for which she completed an inpatient course of steroids and Remdesivir. She underwent thoracentesis on right at 800 mL in 06/2021 and it was transudative and negative for malignancy. Pt has senile degeneration of the brain and is able to communicate and participate in her goals of care, but is a poor historian overall. Patient is sitting at about a 30 degree angle during my encounter. She appeared in no apparent distress. Her pain was reproducible with dorsiflexion in her left foot and isolated to her periformis and lower back area without radiation. Pt with nonproductive cough, which she says is chronic. Patient will be admitted under hospitalist service for further management. Allergies Allergy/AdvReac Type Severity Reaction Status Date / Time bee venom protein (honey bee) Allergy Severe ANAPHYLAXIS Verified 10/02/21 17:08 Home Medications Medication Instructions Recorded Confirmed Type losartan 25 mg tablet 25 mg PO QAM 03/07/18 11/29/21 History aspirin 81 mg tablet,delayed 81 mg PO QAM 04/30/21 11/29/21 History release montelukast 10 mg tablet 10 mg PO HS 04/30/21 11/29/21 History tiotropium 2.5 mcg-olodaterol 2.5 1 puff inhalation QAM 04/30/21 11/29/21 History mcg/actuation mist for inhalation (Stiolto Respimat) calcium carbonate 500 mg calcium 500 mg PO BID 06/24/21 11/29/21 History (1,250 mg) chewable tablet docusate sodium 100 mg capsule 100 mg PO BID 06/24/21 11/29/21 History (Colace) donepezil 5 mg tablet 5 mg PO BID 06/24/21 11/29/21 History lorazepam 0.5 mg tablet 0.5 mg PO TID 06/24/21 11/29/21 History sertraline 100 mg tablet 150 mg PO QAM 07/06/21 11/29/21 History furosemide 40 mg tablet 40 mg PO QAM #30 tabs 07/09/21 11/29/21 Rx potassium chloride 10 mEq 10 meq PO DAILY #30 tabs 07/09/21 11/29/21 Rx tablet,extended release(part/cryst) benzonatate 100 mg capsule 100 mg PO TID PRN cough #30 caps 09/09/21 11/29/21 Rx amiodarone 200 mg tablet 200 mg PO QAM 10/02/21 11/29/21 History cetirizine 10 mg tablet (Zyrtec) 10 mg PO QAM 10/02/21 11/29/21 History metoprolol tartrate 25 mg tablet 12.5 mg PO BID 10/02/21 11/29/21 History pantoprazole 40 mg tablet,delayed 40 mg PO BID 10/02/21 11/29/21 History release spironolactone 25 mg tablet 12.5 mg PO QAM 10/02/21 11/29/21 History fluticasone propionate 50 2 spray CLEMENTINA DAILY PRN nasal 11/19/21 11/29/21 Rx mcg/actuation nasal congestion #16 grams spray,suspension guaifenesin 100 mg/5 mL oral liquid 200 mg (10 mL) PO Q6H PRN cough 11/19/21 11/29/21 Rx #500 mL Past Med/Surg History Medical History (Updated 11/29/21 @ 16:07 by TEVIN Winchester) Abnormal CT of the chest Acute on chronic heart failure with preserved ejection fraction Anemia of chronic disease Anxiety Anxiety Asthma USING RESCUE INHALER FREQUENTLY/DAILY Asthma-COPD overlap syndrome Cancer BREAST CANCER-LEFT MASTECTOMY Chronic obstructive pulmonary disease COPD (chronic obstructive pulmonary disease) COVID-19 Deep vein thrombosis 15 YEARS AGO S/P LEG SURGERY Degenerative disc disease Dysphagia HX ESOPHAGEAL STRETCHING Fall GERD (gastroesophageal reflux disease) History of pulmonary embolism HTN (hypertension) Hypertension Osteoarthritis PAF (paroxysmal atrial fibrillation) Prolapsed bladder Pulmonary nodule, right Rectal bleeding Senile degeneration of brain T12 burst fracture Surgical History History of cataract surgery RT/LEFT History of colonoscopy History of esophagogastroduodenoscopy (EGD) History of mastectomy LEFT (NO BP/LAB DRAWS) History of tonsillectomy History of tooth extraction History of total hysterectomy with bilateral salpingo-oophorectomy (BSO) History of total knee replacement LEFT/RT Family History Other Family history non-contributory Social History Smoking Status: Never smoker Second Hand Exposure: No; Hx Alcohol Use: No Hx Substance Use: No Preferred Language: Zambian Communication Ability: Effective 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 Beliefs That Will Affect Care: [facility] marital status: Unknown Current Living Situation: Personal Care Facility Current Living Situation Comment: [facility] Feels Safe at Home: Yes Childhood Exposure to Second-Hand Smoke: Yes Dental Care, Regularly: Yes Assistive Devices: Walker Review of Systems Review of Systems: Neuro: (-) Falls, trauma, slurred speech (+) lower back pain HEENT: (-) MILNER, dizziness, dysphagia, visual or auditory changes CV: (-) CP, palpitations, swelling Resp: (-) SOB GI: (-) appetite changes, N/V/D, bowel changes : (-) urinary changes Skin: (-) rashes Psych: (-) anxiety, depression Physical Exam Physical Exam: Neuro: AAOx4, PERRLA, no dysarthria, CNII-XII grossly intact HEENT: head normocephalic, moist mucus membranes CV: S1/S2, (-) M/G/R, (-) edema, cap refill < 3 seconds Resp: Lungs CTA in all croft. On RA (+) nonproductive cough GI: Abdomen S/NT/ND, Ax4 bowel sounds, (-) CVA tenderness Musculoskeletal: 5/5 B/L UE strength, 3/5 B/L LE strength. (+) pain on left lower back with left foot dorsiflexion Skin: (-) rashes , (-) erythema. Psych: euthymic mood Results & Data Results & Data ([facility]) Vital Signs (Past 12 Hours) Vital Signs Temp Pulse Resp BP Pulse Ox O2 Del Method 11/29/21 12:03 36.7 C 70 18 152/68 H 98 Room Air Diagnostic Findings Femur X-Ray 11/29/21 12:27 XR femur LT 2V routine HISTORY: 89 years-old Female L low back/hip pain . Acute pain of the pelvis and left hip status post fall COMPARISON: CT pelvis of same day, pelvis radiographs 09/08/2020 TECHNIQUE: 2 views of the left femur FINDINGS: Moderate to severe osteoarthritis of the left hip. No acute fracture, dislocation or avascular necrosis. Unremarkable appearance of the visualized total joint arthroplasty. Arterial calcifications. Unremarkable soft tissues. IMPRESSION: No acute fracture or dislocation. ACT 112: Negative or not required by law. The above report was generated using voice recognition software. It may contain grammatical, syntax or spelling errors. Electronically signed by: Tony Zaragoza M.D. 11/29/2021 1:[address] 11/29/21 12:[address] DOSE: 315.43 mGycm HISTORY: L low back/hip pain TECHNIQUE: Multiaxial CT images of the lumbar spine were performed and reformatted in the sagittal and coronal plane without the use of contrast. A dose lowering technique was utilized adhering to the principles of ALARA. COMPARISON: Thoracic spine CT 11/29/2021. Lumbar spine CT 10/02/2021. FINDINGS: Old mild superior endplate compression deformity at L5 with 5 mm of retropulsion the posterior superior corner. This remains unchanged. No acute fractures identified within the lumbar spine. Please refer to the same day thoracic spine CT for further evaluation of the partially visualized T12 fracture. Moderate to severe facet degenerative changes throughout the lumbar spine. There is moderate disc space narrowing at L3-L4 and L4-5. Bilateral pleural effusions are partially visualized. The visualized sacrum is intact. Right-sided nephrolithiasis is noted. Paravertebral soft tissues are unremarkable. Severe central canal narrowing at L3-L4 and L4-5 persist. [id number] central canal narrowing at L5-S1. IMPRESSION: 1. No acute fractures within the lumbar spine. 2. The partially visualized T12 fracture is better appreciated on the same day thoracic spine CT. 3. Degenerative changes again noted which is similar to the prior study. 4. Old L5 compression deformity, unchanged. ACT 112: Negative or not required by law. Electronically signed by: Eulalio Pinon M.D. 11/29/2021 1:[address] 11/29/21 12:27 CT pelvis wo con HISTORY: 89 years-old Female L low back/hip pain . Acute pain of the mid to low back and pelvis status post fall. Follow-up study in a patient with a subacute sacral fracture. COMPARISON: CT thoracic and lumbar spine studies of same day, CT abdomen and pelvis 10/02/2021 TECHNIQUE: Multiple axial CT images of the pelvis were obtained without the use of IV contrast. A dose lowering technique was used consistent with the principals of ALARA. FINDINGS: 7 mm nodule involving the anterior wall of the urinary bladder is redemonstrated on image 69 series 3. No acute process of the imaged intrapelvic structures. Distended gallbladder with layering sludge versus cholelithiasis. Colonic diverticulosis. Normal appendix. Mild generalized body wall edema. Atherosclerosis of aorta and branch vessels. Demineralized appearance of the bones with advanced degenerative changes of the imaged lower lumbar spine. Mild superior endplate compression of L5 is unchanged. Healing subacute fracture involving the S4 segment demonstrates unchanged alignment. Chondrocalcinosis of the hips. Moderate to severe left with severe right hip osteoarthritis. No acute fracture or dislocation identified. IMPRESSION: 1. No acute fracture identified. 2. Healing subacute sacral fracture at the S4 level demonstrates unchanged alignment compared to the 10/02/2021 exam. 3. 7 mm soft tissue nodule involving the anterior wall of the urinary bladder is again noted. 4. Chronic T12 compression deformity. ACT 112: Negative or not required by law. The above report was generated using voice recognition software. It may contain grammatical, syntax or spelling errors. Electronically signed by: Tony Zaragoza M.D. 11/29/2021 1:[address] 11/29/21 12:28 CT OF THE THORACIC SPINE CLINICAL HISTORY: Low back pain following fall. COMPARISON STUDY: Thoracic spine CT October 03, 2021. Chest CT November 12. TECHNIQUE: Helical axial images of the thoracic spine were obtained. Sagittal and coronal reconstructions were viewed. Automated exposure control was utilized for the study. A dose lowering technique was utilized adhering to the principles of ALARA. FINDINGS: Right upper lobe airspace opacity is noted. This may reflect postradiation change. This is unchanged since chest CT of November 12, 2021. Bilateral pleural effusions, left larger than right, are also similar to prior chest CT. Cardiomegaly is noted with extensive mitral annular calcification. A T11 burst fracture is again noted. There is 80% loss of vertebral body height. This has increased since prior exam. Retropulsion has increased. There is moderate central canal stenosis. Healing fracture through the spinous process of T10 is noted. There is an acute T12 burst fracture with minimal retropulsion. There is 40% loss of vertebral body height centrally. Old T1 compression fracture is present. This is unchanged. There are multiple subacute to chronic bilateral posterior rib fractures. Central canal and neural foramen are suboptimally assessed given CT technique. IMPRESSION: 1. Redemonstration of a T11 burst fracture with 80% loss of vertebral body height which has increased since prior study chest CT of November 12, 2021. Slight increase in retropulsion which results in moderate central canal stenosis at this level. 2. Acute T12 burst fracture with moderate loss of vertebral body height and minimal retropulsion with disruption of the posterior cortex. 3. Subacute fracture of the spinous process of T10. 4. Multiple subacute to chronic bilateral posterior rib fractures. 5. Bilateral pleural effusions, left larger than right, similar to chest CT of November 12, 2021. ACT 112: Negative or not required by law. Electronically signed by: Kemal Elizabeth M.D. 11/29/2021 1:30 PM Code Status & VTE Plan Code Status DNR/DNI in the event of cardiac or respiratory arrest VTE Prophylaxis Plan VTE Prophylaxis will be ordered: Yes Supervising Physician Co-Signing Physician Notes Patient was seen and examined independently at bedside. Chart reviewed. Case discussed with Felicita ABARCA and agree with the documentation above with regards to HPI, physical exam and assessment plan and edited wherever necessary. (1) COPD (chronic obstructive pulmonary disease) COPD type: COPD with acute exacerbation Qualified Code(s): J44.1 - Chronic obstructive pulmonary disease with (acute) exacerbation
[2021-11-29 15:30] LABS: Basophils # (auto) 0.04 K/uL (0-0.2); Basophils % (auto) 0.6 %; Eosinophils # (auto) 0.03 K/uL (0-0.50); Eosinophils % (auto) 0.4 %; Hematocrit (blood only) 29.3 % (34.1-44.9); Hemoglobin 8.9 g/dl (12.0-16.0); Immature Granulocytes # (auto) 0.02 K/uL (0.00-0.02); Immature Granulocytes % (auto) 0.3 %; Lymphocytes # (auto) 0.74 K/uL (1.2-3.4); Lymphocytes % (auto) 10.2 %; Mean Corpuscular Hemoglobin 23.5 pg (25.0-34.0); Mean Corpuscular Hgb Conc 30.4 g/dL (32.0-36.0); Mean Corpuscular Volume 77.5 fL (80.0-100.0); Monocytes # (auto) 0.64 K/uL (0.24-0.82); Monocytes % (auto) 8.9 %; Neutrophils # (auto) 5.76 K/uL (1.4-6.5); Neutrophils % (auto) 79.6 %; Platelet Count 284 K/uL (130-400); RDW Coefficient of Variation 18.6 % (11.5-14.5); RDW Standard Deviation 48.9 fL (36.4-46.3); Red Blood Count 3.78 M/uL (3.93-5.22); White Blood Count 7.23 K/ul (4.8-10.8)
[2021-11-29 15:49] LABS: Albumin Globulin Ratio 1.7 (0.9-2); Albumin Level 3.8 gm/dl (3.4-5.0); BUN Creatinine Ratio 21.5 (10-20); Bilirubin,Total 0.4 mg/dl (0.2-1.0); Calcium 8.9 mg/dl (8.5-10.1); Creatinine Clr Calc Pharmacy 38.1 ml/min; Est GFR (African American) 76.9 ml/min; Est GFR (Non-African American) 66.4 ml/min; Globulin 2.3 gm/dl (2.5-4.0); Potassium 4.5 mmol/L (3.5-5.1); Total Protein 6.1 gm/dl (6.0-8.3)
[2021-11-29] MEDS ORDERED: MoRPHine SULFATE 2 MG/ML CARP IV STA (15:56)
[2021-11-29] MEDS: ACETAMINOPHEN 325 MG TAB PO SCH (18:30)
--- NOTE | 2021-11-29 19:08 | Magnetic Resonance Report ---
MR thoracic spine wo con HISTORY: 89 years-old Female T11 acute fx. possible surgery in AM acute mid back pain status post fa ll COMPARISON: CT thoracic spine of same day at 12:40 PM, CT thoracic spine 10/03/2021, CT chest 11/12/2021 TECHNIQUE: Multiplanar multisequence MRI of the thoracic spine was obtained without the use of IV con trast. FINDINGS: Multilevel degenerative changes of the cervical, thoracic and imaged upper lumbar spine. Layering ple ural effusions. Cardiomegaly. Signal within the thoracic spinal cord is within normal limits. Mild no nspecific caliber change of the thoracic spinal cord with narrowing at the level of T5-T6. Conus medu llaris terminates at the L1-L2 level. There is acute on subacute superior endplate compression involv ing the T11 burst fracture which now demonstrates severe vertebral body height loss. 5 mm retropulsio n narrows the AP dimension of the thecal sac to 7 mm. Moderate central canal stenosis at this level w ith moderate bilateral T10-T11 neural foraminal narrowing. Trace fluid signal within the T12/L1 inter vertebral disc space is likely secondary to the acute T12 fracture. Acute 30% superior endplate compression of the T12 vertebral body with 2 mm retropulsion. Flattening of the ventral thecal sac without significant central canal stenosis. Mild bilateral T11-T12 neural f oraminal narrowing. Moderate paravertebral edema at T11-T12. Subacute fracture of the T10 spinous pro cess. Subacute to chronic bilateral posterior rib fractures. IMPRESSION: 1. Acute 30% superior endplate compression of T12 with 2 mm retropulsion. No significant associated c entral canal stenosis at this level. 2. Acute on subacute T11 burst fracture with 5 mm retropulsion resulting in moderate central canal st enosis with moderate bilateral T10-T11 neural foraminal narrowing. 3. Subacute fracture of the T10 spinous process with subacute to chronic posterior rib fractures, bet ter seen on the CT thoracic spine study of same day. 4. Moderate layering pleural effusions. ACT 112: Negative or not required by law. The above report was generated using voice recognition software. It may contain grammatical, syntax o r spelling errors. Electronically signed by: Tony Zaragoza M.D. 11/29/2021 7:05 PM
[2021-11-29] MEDS ORDERED: BENZONATATE 100 MG CAPSULE PO PRN (19:49)
[2021-11-29] MEDS ORDERED: MoRPHine SULFATE 2 MG/ML CARP IV PRN (19:49)
[2021-11-29] MEDS ORDERED: FLUTICASONE PROPIONATE NA SPR 16 GM BTL NAE PRN (19:49)
[2021-11-29] MEDS ORDERED: guaiFENesin SUGAR FREE 100 MG/5 ML UDC PO PRN (19:49)
--- NOTE | 2021-11-29 19:57 | Emergency Department Note ---
ED Visit Note I have personally evaluated this patient examined her and reviewed the pertinent labs and data. I have discussed the case with Bryant Jolly, the physician talent acquisition assistant and agree with the plan. Please refer to the PA note. This patient fell a month or so ago and had some compression fractures in the thoracic area she said 3 days ago when she rolled over in bed her back hurt is hurt since then it is worse with movement. She denies any numbness or weakness or change in bowel or bladder function. We did CAT scans which show compression fractures of several of the lower thoracic vertebrae. She will be admitted for pain management and further inpatient treatment and evaluation. On my exam she is resting comfortably and has normal motor and sensation in her lower extremities .
[2021-11-29] MEDS ORDERED: guaiFENesin SUGAR FREE 200 MG/10 ML UDC PO PRN (20:06)
[2021-11-29] MEDS: CALCIUM CARBONATE 1250MG TAB PO SCH (21:38)
[2021-11-29] MEDS: DONEPEZIL HCL 5 MG TAB PO SCH (21:39)
[2021-11-29] MEDS: DOCUSATE SODIUM 100 MG CAP PO SCH (21:39)
[2021-11-29] MEDS: LORazepam 0.5 MG TAB PO SCH (21:39)
[2021-11-29] MEDS: LIDOCAINE 5% 1 PATCH TD SCH (21:40)
[2021-11-29] MEDS: METOPROLOL TARTRATE 25 MG TAB PO SCH (21:41)
[2021-11-29] MEDS: PANTOprazole 40 MG TAB PO SCH (21:41)
[2021-11-29] MEDS: MONTELUKAST SODIUM 10 MG TABLET PO SCH (21:41)
[2021-11-30] MEDS: ACETAMINOPHEN 325 MG TAB PO SCH ×4 (00:20→18:03)
[2021-11-30] MEDS: LORazepam 0.5 MG TAB PO SCH ×3 (05:42→20:58)
[2021-11-30 07:09] LABS: Hematocrit (blood only) 26.5 % (34.1-44.9); Hemoglobin 8.1 g/dl (12.0-16.0); Mean Corpuscular Hemoglobin 23.3 pg (25.0-34.0); Mean Corpuscular Hgb Conc 30.6 g/dL (32.0-36.0); Mean Corpuscular Volume 76.4 fL (80.0-100.0); Mean Platelet Volume 12.3 fL (9.4-12.3); Platelet Count 271 K/uL (130-400); RDW Coefficient of Variation 18.9 % (11.5-14.5); RDW Standard Deviation 49.2 fL (36.4-46.3); Red Blood Count 3.47 M/uL (3.93-5.22); White Blood Count 4.32 K/ul (4.8-10.8)
[2021-11-30 07:44] LABS: BUN Creatinine Ratio 24.4 (10-20); Calcium 8.5 mg/dl (8.5-10.1); Creatinine Clr Calc Pharmacy 34.3 ml/min; Est GFR (African American) 78.1 ml/min; Est GFR (Non-African American) 67.4 ml/min; Magnesium 1.7 mg/dl (1.7-2.4); Potassium 3.9 mmol/L (3.5-5.1)
--- NOTE | 2021-11-30 08:50 | Electrocardiogram Report ---
Test Reason : Blood Pressure : / mmHG Vent. Rate : 072 BPM Atrial Rate : 072 BPM P-R Int : 160 ms QRS Dur : 092 ms QT Int : 430 ms P-R-T Axes : 086 067 087 degrees QTc Int : 470 ms Normal sinus rhythm Normal ECG When compared with ECG of 12-NOV-2021 12:29, No significant change was found Confirmed by Caesar Waddell ([id number]) on 11/30/2021 8:50:10 AM Referred By: [facility] Confirmed By:Chemo Waddell
[2021-11-30] MEDS ORDERED: ASPIRIN 81 MG ECTAB PO SCH (09:00)
[2021-11-30] MEDS: UMECLIDINIUM/VILANTEROL 62.5/25MCG 7 PUFFS/INHALER INH SCH (09:41)
[2021-11-30] MEDS: METOPROLOL TARTRATE 25 MG TAB PO SCH ×2 (09:42→21:00)
[2021-11-30] MEDS: LOSARTAN POTASSIUM 25 MG TAB PO SCH (09:42)
[2021-11-30] MEDS: CETIRIZINE HCL 10 MG TABLET PO SCH (09:42)
[2021-11-30] MEDS: DONEPEZIL HCL 5 MG TAB PO SCH ×2 (09:42→21:00)
[2021-11-30] MEDS: AMIODARONE 200 MG TAB PO SCH (09:42)
[2021-11-30] MEDS: FUROSEMIDE 40 MG TAB PO SCH (09:42)
[2021-11-30] MEDS: SPIRONOLACTONE 12.5 MG TAB PO SCH (09:43)
[2021-11-30] MEDS: POTASSIUM CHLORIDE 10 MEQ TABCR PO SCH (09:43)
[2021-11-30] MEDS: SERTRALINE HCL 50 MG TABLET PO SCH (09:43)
[2021-11-30] MEDS: PANTOprazole 40 MG TAB PO SCH ×2 (09:43→21:01)
[2021-11-30] MEDS: DOCUSATE SODIUM 100 MG CAP PO SCH ×2 (09:44→21:01)
[2021-11-30] MEDS: CALCIUM CARBONATE 1250MG TAB PO SCH ×2 (09:44→20:59)
--- NOTE | 2021-11-30 11:24 | XRay Report ---
XR chest 1V portable HISTORY: post-operative coughing and wheezing COMPARISON: Chest 11/17/2021. Thoracic spine CT 11/29/2021. FINDINGS: No pneumothorax. Interval improvement in the small left pleural effusion and left base airs pace opacities. The heart is normal in size. There is mild central pulmonary vascular congestion with out overt edema. Right apical density persists. Mitral annulus calcifications are noted. Degenerative changes within the shoulders. IMPRESSION: 1. Interval improvement in the small left pleural effusion and left basilar airspace opacities. 2. Mild pulmonary vascular congestion without overt edema. 3. Chronic right apical consolidation again noted. ACT 112: Negative or not required by law. Electronically signed by: Eulalio Pinon M.D. 11/30/2021 11:22 AM
--- NOTE | 2021-11-30 11:43 | Consultation ---
Date of Consultation November 30, 2021 Assessment & Plan (1) T12 burst fracture: Patient presents to the ER yesterday for due to a decline and increase in thoracolumbar pain. She has an acute to subacute T11 burst fracture as well as an acute T12 burst fracture. She is neurologically intact. Dr. Hurley has i nterviewed the patient as well as examined her. Options have been reviewed including kyphoplasty and biopsy of T11 and T12. Risk, benefits, pros cons on transfer outlined in detail. She would like to proceed with above-mentioned surgical planning. We will try and arrange this today. History of Present Illness Reason for Consultation: Burst fracture T11 and T12 Attending Physician: Isaura Pretty MD History of Present Illness Is a pleasant 89-year-old female well-known to us. We are consulted on an acute T11 fracture 2 months ago in September. Treatment at that point in time was conservative in the form of TLSO bracing, limited lifting and ambulation as well as pain control. She was recently admitted to the hospital for shortness of breath and coughing episodes. This appears to exacerbated her fractures. She was readmitted yesterday due to increasing lower back pain favoring the left side. No radicular complaints. She is a resident at [facility]. She has been having a more difficult time with changing positions and ambulation. She is most comfortable lying supine/at rest. Her pain is now to the point it is affecting daily quality of life. Allergies Allergy/AdvReac Type Severity Reaction Status Date / Time bee venom protein (honey bee) Allergy Severe ANAPHYLAXIS Verified 10/02/21 17:08 Home Medications Medication Instructions Recorded Confirmed Type losartan 25 mg tablet 25 mg PO QAM 03/07/18 11/29/21 History aspirin 81 mg tablet,delayed 81 mg PO QAM 04/30/21 11/29/21 History release montelukast 10 mg tablet 10 mg PO HS 04/30/21 11/29/21 History tiotropium 2.5 mcg-olodaterol 2.5 1 puff inhalation QAM 04/30/21 11/29/21 History mcg/actuation mist for inhalation (Stiolto Respimat) calcium carbonate 500 mg calcium 500 mg PO BID 06/24/21 11/29/21 History (1,250 mg) chewable tablet docusate sodium 100 mg capsule 100 mg PO BID 06/24/21 11/29/21 History (Colace) donepezil 5 mg tablet 5 mg PO BID 06/24/21 11/29/21 History lorazepam 0.5 mg tablet 0.5 mg PO TID 06/24/21 11/29/21 History sertraline 100 mg tablet 150 mg PO QAM 07/06/21 11/29/21 History furosemide 40 mg tablet 40 mg PO QAM #30 tabs 07/09/21 11/29/21 Rx potassium chloride 10 mEq 10 meq PO DAILY #30 tabs 07/09/21 11/29/21 Rx tablet,extended release(part/cryst) benzonatate 100 mg capsule 100 mg PO TID PRN cough #30 caps 09/09/21 11/29/21 Rx amiodarone 200 mg tablet 200 mg PO QAM 10/02/21 11/29/21 History cetirizine 10 mg tablet (Zyrtec) 10 mg PO QAM 10/02/21 11/29/21 History metoprolol tartrate 25 mg tablet 12.5 mg PO BID 10/02/21 11/29/21 History pantoprazole 40 mg tablet,delayed 40 mg PO BID 10/02/21 11/29/21 History release spironolactone 25 mg tablet 12.5 mg PO QAM 10/02/21 11/29/21 History fluticasone propionate 50 2 spray CLEMENTINA DAILY PRN nasal 11/19/21 11/29/21 Rx mcg/actuation nasal congestion #16 grams spray,suspension guaifenesin 100 mg/5 mL oral liquid 200 mg (10 mL) PO Q6H PRN cough 11/19/21 11/29/21 Rx #500 mL Patient History Medical History Abnormal CT of the chest Acute on chronic heart failure with preserved ejection fraction Anemia of chronic disease Anxiety Anxiety Asthma USING RESCUE INHALER FREQUENTLY/DAILY Asthma-COPD overlap syndrome Cancer BREAST CANCER-LEFT MASTECTOMY Chronic obstructive pulmonary disease COPD (chronic obstructive pulmonary disease) COVID-19 Deep vein thrombosis 15 YEARS AGO S/P LEG SURGERY Degenerative disc disease Dysphagia HX ESOPHAGEAL STRETCHING Fall GERD (gastroesophageal reflux disease) History of pulmonary embolism HTN (hypertension) Hypertension Osteoarthritis PAF (paroxysmal atrial fibrillation) Prolapsed bladder Pulmonary nodule, right Rectal bleeding Senile degeneration of brain T12 burst fracture Surgical History History of cataract surgery RT/LEFT History of colonoscopy History of esophagogastroduodenoscopy (EGD) History of mastectomy LEFT (NO BP/LAB DRAWS) History of tonsillectomy History of tooth extraction History of total hysterectomy with bilateral salpingo-oophorectomy (BSO) History of total knee replacement LEFT/RT Family History Other Family history non-contributory Social History Smoking Status: Never smoker Second Hand Exposure: No; Hx Alcohol Use: No Hx Substance Use: No Preferred Language: Vietnamese Communication Ability: Effective Depilatory Painter Required: No Beliefs That Will Affect Care: Moravian marital status: Unknown Current Living Situation: Personal Care Facility Current Living Situation Comment: [facility] Other Information That Helps Us Care for You: No Feels Safe at Home: Yes Safety Concerns: Feels Safe At This Time Childhood Exposure to Second-Hand Smoke: Yes Dental Care, Regularly: Yes Assistive Devices: Glasses, Hearing Aid - Left and Walker Review of Systems Review of Systems: All systems reviewed & are unremarkable except as noted in HPI & below Physical Exam Physical Exam: She is lying in bed in a semireclined position in no acute distress Alert and oriented x3 Tender to patient of the midline thoracolumbar spine Strength is intact bilateral lower extremities Constitutional: WD/WN, vitals as above Eyes: normal visual croft by confrontation ENMT: external ear and nose normal, oropharynx normal Neck: normal visual inspection Respiratory: normal respiratory effort Cardiovascular: Extremities: normal capillary refill Gastrointestinal (Abdomen): Inspection/Auscultation: abdomen normal to inspection Musculoskeletal: Spine: + pain with thoraco-lumbar ROM Extremities: extremities normal to inspection and strength 5/5 throughout Skin: no rashes, warm and dry Neurologic: normal touch/pain/proprioception and moves all extremities Psychiatric: A+Ox3, euthymic affect Eye Contact: good eye contact Results & Data ([facility]) Vital Signs (Past 12 Hours) Vital Signs Temp Pulse Resp BP Pulse Ox O2 Del Method 11/30/21 07:28 36.4 C L 73 16 172/76 H 92 Room Air Diagnostic Findings [place], [place] [phone] Magnetic Resonance Report Patient:NALLELY NOBLE Admit Date:11/29/21 MR#:[id number] Address1:[address] [place] [address] Acct ID:[id number] Address2:[facility] Date:1930 [facility] Zip:[place] [address] Age:89 Location:ED Sex:F Room/Bed: Att Phy: Diagnosis:BACK PAIN Neris Phy:[facility] Service Date:11/29/21 Fam Phy: Interpreting Phy:Tony ZaragozaAdmit Phy: Ordering Phy:TEVIN Reid cc: ~ MR thoracic spine wo con HISTORY: 89 years-old Female T11 acute fx. possible surgery in AM acute mid back pain status post fall COMPARISON: CT thoracic spine of same day at 12:40 PM, CT thoracic spine 10/03/2021, CT chest 11/12/2021 TECHNIQUE: Multiplanar multisequence MRI of the thoracic spine was obtained without the use of IV contrast. FINDINGS: Multilevel degenerative changes of the cervical, thoracic and imaged upper lumbar spine. Layering pleural effusions. Cardiomegaly. Signal within the thoracic spinal cord is within normal limits. Mild nonspecific caliber change of the thoracic spinal cord with narrowing at the level of T5-T6. Conus medullaris terminates at the L1-L2 level. There is acute on subacute superior endplate compression involving the T11 burst fracture which now demonstrates severe vertebral body height loss. 5 mm retropulsion narrows the AP dimension of the thecal sac to 7 mm. Moderate central canal stenosis at this level with moderate bilateral T10-T11 neural foraminal narrowing. Trace fluid signal within the T12/L1 intervertebral disc space is likely secondary to the acute T12 fracture. Acute 30% superior endplate compression of the T12 vertebral body with 2 mm retropulsion. Flattening of the ventral thecal sac without significant central canal stenosis. Mild bilateral T11-T12 neural foraminal narrowing. Moderate paravertebral edema at T11-T12. Subacute fracture of the T10 spinous process. Subacute to chronic bilateral posterior rib fractures. IMPRESSION: 1. Acute 30% superior endplate compression of T12 with 2 mm retropulsion. No significant associated central canal stenosis at this level. 2. Acute on subacute T11 burst fracture with 5 mm retropulsion resulting in mo derate central canal stenosis with moderate bilateral T10-T11 neural foraminal narrowing. 3. Subacute fracture of the T10 spinous process with subacute to chronic posterior rib fractures, better seen on the CT thoracic spine study of same day. 4. Moderate layering pleural effusions. ACT 112: Negative or not required by law. The above report was generated using voice recognition software. It may contain grammatical, syntax or spelling errors. Electronically signed by: Tony Zaragoza M.D. 11/29/2021 7:05 PM Dictated:11/29/211855 Transcribed: 11/29/211855 [place], [place] [phone] CT Scan Report Patient:NALLELY NOBLE Admit Date:11/29/21 MR#:[id number] Address1:[address] [place] [address] Acct ID:[id number] Address2:[facility] Date:1930 [facility] Zip:[place] [address] Age:89 Location:ED Sex:F Room/Bed: Att Phy: Diagnosis:BACK PAIN Neris Phy:[facility] Service Date:11/29/21 Fam Phy: Interpreting Phy:Kemal Elizabeth MDAdmit Phy: Ordering Phy:Bryant Jolly PA-C cc: ~ CT OF THE THORACIC SPINE CLINICAL HISTORY: Low back pain following fall. COMPARISON STUDY: Thoracic spine CT October 03, 2021. Chest CT November 12, 2021. TECHNIQUE: Helical axial images of the thoracic spine were obtained. Sagittal and coronal reconstructions were viewed. Automated exposure control was utilized for the study. A dose lowering technique was utilized adhering to the principles of ALARA. FINDINGS: Right upper lobe airspace opacity is noted. This may reflect postrad iation change. This is unchanged since chest CT of November 12, 2021. Bilateral pleural effusions, left larger than right, are also similar to prior chest CT. Cardiomegaly is noted with extensive mitral annular calcification. A T11 burst fracture is again noted. There is 80% loss of vertebral body height. This has increased since prior exam. Retropulsion has increased. There is moderate central canal stenosis. Healing fracture through the spinous process of T10 is noted. There is an acute T12 burst fracture with minimal retropulsion. There is 40% loss of vertebral body height centrally. Old T1 compression fracture is present. This is unchanged. There are multiple subacute to chronic bilateral posterior rib fractures. Central canal and neural foramen are suboptimally assessed given CT technique. IMPRESSION: 1. Redemonstration of a T11 burst fracture with 80% loss of vertebral body height which has increased since prior study chest CT of November 12, 2021. Slight increase in retropulsion which results in moderate central canal stenosis at this level. 2. Acute T12 burst fracture with moderate loss of vertebral body height and minimal retropulsion with disruption of the posterior cortex. 3. Subacute fracture of the spinous process of T10. 4. Multiple subacute to chronic bilateral posterior rib fractures. 5. Bilateral pleural effusions, left larger than right, similar to chest CT of November 12, 2021. ACT 112: Negative or not required by law. Electronically signed by: Kemal Elizabeth M.D. 11/29/2021 1:30 PM Dictated:11/29/21 1314 Transcribed: 11/29/21 1314
[2021-11-30] MEDS ORDERED: fentaNYL citrate 100 MCG/2 ML VIAL ONE (13:16)
--- NOTE | 2021-11-30 13:39 | Anesthesiology Consultation ---
Date of Service November 30, 2021 Assessment & Plan Chart Review Chart Review: Acceptable Risk for Surgery Consults Requested none History Surgery Operation Date: 11/30/21 13:40 Proposed Procedures p t11 and T12 Kyphoplasty - Amilcar Hurley DO Height/Weight Height: 5 ft 5 in Weight: 44.4 kg Allergies Allergy/AdvReac Type Severity Reaction Status Date / Time bee venom protein (honey bee) Allergy Severe ANAPHYLAXIS Verified 10/02/21 17:08 Medications Home Medications Medication Instructions Recorded Confirmed Last Taken losartan 25 mg tablet 25 mg PO QAM 03/07/18 11/29/21 10/02/21 aspirin 81 mg tablet,delayed 81 mg PO QAM 04/30/21 11/29/21 10/02/21 release montelukast 10 mg tablet 10 mg PO HS 04/30/21 11/29/21 10/01/21 tiotropium 2.5 mcg-olodaterol 2.5 1 puff inhalation QA 04/30/21 11/29/21 10/02/21 mcg/actuation mist for inhalation (Stiolto Respimat) calcium carbonate 500 mg calcium 500 mg PO BID 06/24/21 11/29/21 10/02/21 06:30 (1,250 mg) chewable tablet docusate sodium 100 mg capsule 100 mg PO BID 06/24/21 11/29/21 10/02/21 08:00 (Colace) donepezil 5 mg tablet 5 mg PO BID 06/24/21 11/29/21 10/02/21 08:00 lorazepam 0.5 mg tablet 0.5 mg PO TID 06/24/21 11/29/21 10/02/21 06:30 sertraline 100 mg tablet 150 mg PO QAM 07/06/21 11/29/21 10/02/21 furosemide 40 mg tablet 40 mg PO QAM #30 tabs 07/09/21 11/29/21 10/02/21 potassium chloride 10 mEq 10 meq PO DAILY #30 tabs 07/09/21 11/29/21 10/02/21 tablet,extended release(part/cryst) benzonatate 100 mg capsule 100 mg PO TID PRN cough #30 caps 09/09/21 11/29/21 Unknown amiodarone 200 mg tablet 200 mg PO QAM 08/08/1811/29/21 10/02/21 cetirizine 10 mg tablet (Zyrtec) 10 mg PO QAM 10/02/21 11/29/21 10/02/21 metoprolol tartrate 25 mg tablet 12.5 mg PO BID 10/02/21 11/29/21 10/02/21 08:00 pantoprazole 40 mg tablet,delayed 40 mg PO BID 10/02/21 11/29/21 10/02/21 08:00 release spironolactone 25 mg tablet 12.5 mg PO QAM 10/02/21 11/29/21 10/02/21 fluticasone propionate 50 2 spray CLEMENTINA DAILY PRN nasal 11/19/21 11/29/21 Unknown mcg/actuation nasal congestion #16 grams spray,suspension guaifenesin 100 mg/5 mL oral liquid 200 mg (10 mL) PO Q6H PRN cough 11/19/21 11/29/21 Unknown #500 mL Active Medications Generic Name Dose Route Start Last Admin Trade Name Freq PRN Reason Stop Dose Admin Acetaminophen 650 mg 11/29/21 18:30 11/30/21 13:14 Acetaminophen 325 Mg Tab PO 12/29/21 18:29 Not Given Q6 MARILIA Amiodarone HCl 200 mg 11/30/21 09:00 11/30/21 09:42 Amiodarone 200 Mg Tab PO 12/30/21 08:59 200 mg QAM MARILIA Administration Calcium Carbonate 1,250 mg 11/29/21 21:00 11/30/21 09:44 Calcium Carbonate 1250mg Tab PO 12/29/21 20:59 1,250 mg BID MARILIA Administration Cetirizine HCl 10 mg 11/30/21 09:00 11/30/21 09:42 Cetirizine Hcl 10 Mg Tablet PO 12/30/21 08:59 10 mg QAM MARILIA Administration Docusate Sodium 100 mg 11/29/21 21:00 11/30/21 09:44 Docusate Sodium 100 Mg Cap PO 12/29/21 20:59 100 mg BID MARILIA Administration Donepezil HCl 5 mg 11/29/21 21:00 11/30/21 09:42 Donepezil Hcl 5 Mg Tab PO 12/29/21 20:59 5 mg BID MARILIA Administration Furosemide 40 mg 11/30/21 09:00 11/30/21 09:42 Furosemide 40 Mg Tab PO 12/30/21 08:59 40 mg QAM MARILIA Administration Lidocaine 1 patch 11/29/21 21:00 11/29/21 21:40 Lidocaine 5% 1 Patch TD 12/29/21 20:59 1 patch HS MARILIA Administration Lorazepam 0.5 mg 11/29/21 20:00 11/30/21 05:42 Lorazepam 0.5 Mg Tab PO 12/29/21 19:59 0.5 mg TID@0630,1500,2000 MARILIA Administration Losartan Potassium 25 mg 11/30/21 09:00 11/30/21 09:42 Losartan Potassium 25 Mg Tab PO 12/30/21 08:59 25 mg QAM MARILIA Administration Metoprolol Tartrate 12.5 mg 11/29/21 21:00 11/30/21 09:42 Metoprolol Tartrate 25 Mg Tab PO 12/29/21 20:59 12.5 mg BID MARILIA Administration Miscellaneous 1 each 11/30/21 09:00 11/30/21 10:20 Remove Lidoderm Patch N/A 12/30/21 08:59 1 each DAILY MARILIA Administration Montelukast Sodium 10 mg 11/29/21 21:00 11/29/21 21:41 Montelukast Sodium 10 Mg Tablet PO 12/29/21 20:59 10 mg HS MARILIA Administration Pantoprazole Sodium 40 mg 11/29/21 21:00 11/30/21 09:43 Pantoprazole 40 Mg Tab PO 12/29/21 20:59 40 mg BID MARILIA Administration Potassium Chloride 10 meq 11/30/21 09:00 11/30/21 09:43 Potassium Chloride 10 Meq Tabcr PO 12/30/21 08:59 10 meq DAILY MARILIA Administration Sertraline HCl 150 mg 11/30/21 09:00 11/30/21 09:43 Sertraline Hcl 50 Mg Tablet PO 12/30/21 08:59 150 mg QAM MARILIA Administration Spironolactone 12.5 mg 11/30/21 09:00 11/30/21 09:43 Spironolactone 12.5 Mg Tab PO 12/30/21 08:59 12.5 mg QAM MARILIA Administration Umeclidinium/Vilanterol 1 puffs 11/30/21 09:00 11/30/21 09:41 Umeclidinium/Vilanterol 62.5/25mcg 7 Puffs/Inhaler INH 12/30/21 08:59 1 puffs DAILY MARILIA Administration NPO Date Last Intake of Fluids: 11/29/21 Time Last Intake of Fluids: 23:55 Date Last Intake of Solids: 11/29/21 Time Last Intake of Solids: 23:55 Past Medical History Medical History Abnormal CT of the chest Acute on chronic heart failure with preserved ejection fraction Anemia of chronic disease Anxiety Anxiety Asthma USING RESCUE INHALER FREQUENTLY/DAILY Asthma-COPD overlap syndrome Cancer BREAST CANCER-LEFT MASTECTOMY Chronic obstructive pulmonary disease COPD (chronic obstructive pulmonary disease) COVID-19 Deep vein thrombosis 15 YEARS AGO S/P LEG SURGERY Degenerative disc disease Dysphagia HX ESOPHAGEAL STRETCHING Fall GERD (gastroesophageal reflux disease) History of pulmonary embolism HTN (hypertension) Hypertension Osteoarthritis PAF (paroxysmal atrial fibrillation) Prolapsed bladder Pulmonary nodule, right Rectal bleeding Senile degeneration of brain T12 burst fracture Past Family History Family History Other Family history non-contributory Past Surgical History Surgical History History of cataract surgery RT/LEFT History of colonoscopy History of esophagogastroduodenoscopy (EGD) History of mastectomy LEFT (NO BP/LAB DRAWS) History of tonsillectomy History of tooth extraction History of total hysterectomy with bilateral salpingo-oophorectomy (BSO) History of total knee replacement LEFT/RT Social History Smoking Status: Never smoker Hx Alcohol Use: No Hx Substance Use: No substance use type: does not use Physical Exam Vital Signs Last Vital Signs Temp 36.8 C 11/30/21 13:02 Pulse 70 11/30/21 13:02 Resp 18 11/30/21 13:02 BP 165/71 H 11/30/21 13:02 Pulse Ox 94 11/30/21 13:02 O2 Del Method 11/30/21 13:02 Testing Laboratory Results 11/30/21 06:02 11/30/21 06:02
[2021-11-30] MEDS ORDERED: ATROPINE SULFATE 0.1 MG/ML 10ML SYR IV PRN (13:41)
[2021-11-30] MEDS ORDERED: PROMETHAZINE HCL 12.5 MG in SODIUM CHLORIDE 0.9% 50 ML IV PRN (13:41)
[2021-11-30] MEDS ORDERED: fentaNYL citrate 100 MCG/2 ML VIAL IV PRN (13:41)
[2021-11-30] MEDS ORDERED: HYDROmorphone INJ 2 MG/ML SYR/VIAL IV PRN (13:41)
[2021-11-30] MEDS ORDERED: ONDANSETRON INJ 2 MG/ML 2 ML VIAL IV PRN (13:41)
[2021-11-30] MEDS ORDERED: ePHEDrine sulfate 50 MG/ML AMP IV PRN (13:41)
--- NOTE | 2021-11-30 13:59 | History & Physical Bridge Note ---
Date of Service November 30, 2021 History & Physical Bridge Note I have examined the patient, reviewed the History & Physical and in the interval since the performance of the History & Physical I have noted the following changes of clinical significance: Patient has a T11 burst fracture that has been progressive in nature as well as a T12 burst fracture. The nature of his injuries and the progression warrants emergent stabilization to prevent impending neurologic damage. We are recommending a kyphoplasty of T11 and T12.
[2021-11-30] MEDS ORDERED: BUPIVACAINE/EPINEPHRINE 0.25% 1:200,000 30 ML VIAL ONE (14:01)
[2021-11-30] MEDS ORDERED: ceFAZolin 1000MG 1,000 MG/7.5 ML SYR IV ONE (14:14)
[2021-11-30] MEDS ORDERED: ceFAZolin 330 MG/ML 1 GM VIAL ONE (14:34)
[2021-11-30] MEDS ORDERED: PROPOFOL IV EMULSION 10 MG/ML 20 ML VIAL IV ONE (14:34)
[2021-11-30] MEDS ORDERED: LIDOCAINE 2% MPF LOCAL 5 ML VIAL INFIL ONE (14:34)
[2021-11-30] MEDS ORDERED: ROCURONIUM BROMIDE 10 MG/ML 5 ML VIAL IV ONE (14:34)
[2021-11-30] MEDS ORDERED: ePHEDrine sulfate 50 MG/ML SYR ONE (14:44)
[2021-11-30] MEDS ORDERED: PHENYLEPHRINE 100MCG/ML 5ML SYR ONE (14:44)
[2021-11-30] MEDS ORDERED: DEXAMETHASONE SOD INJ 4 MG/ML VIAL ONE (14:44)
[2021-11-30] MEDS ORDERED: ONDANSETRON INJ 2 MG/ML 2 ML VIAL ONE (14:44)
--- NOTE | 2021-11-30 15:14 | Operative Report ---
Post Operative Report Pre & Post Diagnosis Operation Date: 11/30/21 13:40 Pre-Op Diagnosis: T11 and T12 burst fractures Post-Op Diagnosis: Same I identified the patient and participated in the time-out.: Yes Procedure Operation Date: 11/30/21 13:40 Actual Procedures #1 T11 and T12 kyphoplasty. #2 biopsies of T11 and T12 vertebral body Surgeon Amilcar Hurley, DO Hot Blaster None Estimated Blood Loss 5 Findings Consistent with Post-Op Diagnosis Specimens Biopsy of T11 and T12 vertebral body Indications This is an 89-year-old female who presents with worsening fractures of T11-T12 consistent with a burst type fracture and is here for urgent stabilization and improvement of her pain control. Description of Procedure Patient was met with identified informed consent obtained. Patient was then taken to the operative suite underwent a patient placed in a prone position the Thien table chest padded bolsters. All bony prominences well-padded and eyes inspected to ensure no external pressure placed upon them. This point the thoracolumbar spine was prepped and draped in a sterile fashion. With the assistance of fluoroscopy in AP and lateral planes we identified the T11 and T12 vertebral bodies. Beginning with T12 to small incisions were placed just lateral to the pedicles and 2 Kyphon working cannulas were then placed by way of a transpedicular approach into the T11-12 vertebral body. 2 core biopsies were obtained. I then inserted to 15 mm Kyphon balloons and sequentially inflated with fluoroscopic visualization. The balloons were subsequently removed and approximately 6 cc of Kyphon cement injected under fluoroscopic visualization demonstrating excellent interdigitation and fill. After this is complete the working cannulas were removed and I proceeded to T11. Again 2 small incisions created just lateral to the pedicles and again to Kyphon working cannulas placed by way of a transpedicular approach into the T11 vertebral body. Core biopsies were obtained and 15 mm Kyphon balloons inserted and sequentially inflated. They were subsequently removed in approximately 3 cc of Kyphon cement was injected again demonstrated excellent interdigitation. After this is complete the working cannulas removed the small incisions closed with subcutaneous Monocryl and sterile dressings placed. Patient waken taken to PACU in stable condition. I attest to the content of the Intraoperative Record and any orders documented therein. Any exceptions are noted below.
--- NOTE | 2021-11-30 15:26 | Hospitalist Progress Note ---
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 No neurodeficits noted Was not on any biphosphonates last admission; Ca+Carbonate added. Should consider OPT eval for Prolia/Fosomax given sponatenous multiple compression fractures Pt was on Alendronate prior and it was stopped by PCP to avoid increased fragility syndrome. Last Dexa 2018; did show some worsening in the left hip area although the low lumbar area remained unchanged. Orthopedics consultation placed; discussed with Kerry Murrell. Greately appreciate assistance. NPO after MN for possible kyphoplasty in AM after Ortho review Obtain MRI of thoracic spine as documented below Appreciate orthospine input and recommendation for kyphoplasty today Patient herself is feeling very good about it Imaging studies CT thoracic spine 1. Redemonstration of a T11 burst fracture with 80% loss of vertebral body height which has increased since prior study chest CT of November 12, 2021. Sli ght increase in retropulsion which results in moderate central canal stenosis at this level. 2. Acute T12 burst fracture with moderate loss of vertebral body height and minimal retropulsion with disruption of the posterior cortex. 3. Subacute fracture of the spinous process of T10. 4. Multiple subacute to chronic bilateral posterior rib fractures. 5. Bilateral pleural effusions, left larger than right, similar to chest CT of November 12, 2021. Thoracic spine MRI showed: 1. Acute 30% superior endplate compression of T12 with 2 mm retropulsion. No significant associated central canal stenosis at this level. 2. Acute on subacute T11 burst fracture with 5 mm retropulsion resulting in moderate central canal stenosis with moderate bilateral T10-T11 neural foraminal narrowing. 3. Subacute fracture of the T10 spinous process with subacute to chronic posterior rib fractures, better seen on the CT thoracic spine study of same day. 4. Moderate layering pleural effusions. HFpEF: no LE swelling Recent admission with acute on chronic CHF 11/12-11/18 Stable; on RA. Takes Metoprolol, Aldactone, Furosemide, PO KCl; continue Recent echocardiogram during last admission reviewed; EF 65 to 70%, left atrium severely dilated, mild MS, mild TR, moderate MR, severe pulmonary hypertension No signs and or symptoms of fluid overload Patient remains free from any cardiac symptoms Paroxysmal Atrial Fibrillation: HTN: rate/rhythm controlled on amiodarone and metoprolol 12.5 PO BID no oral anticoagulation in setting of chronic anemia at this point Continue Losartan COPD (chronic obstructive pulmonary disease) COVID: Last admission Covid positive in ED. Previously vaccinated. Received steroids and completed 5 day course of Remdesivir Discussed with Keri Truong; no need for isolation. Day #18 since symptom onset. Private room on admission. Last PFT's 04/2019: FEV1 1.17 Continue maintenance inhaler.; Megha Respimalj Had a thoracentesis for large pleural effusion in June; 700 ml removed, non malignant. CXR in AM-did not show any significant change compared to prior Continue COPD medications; Montelukast Last PFT's 04/2019: FEV1 1.17 Anemia of chronic disease: Unspecified, microcytic. Hgb 8.9 on admit Pt denies any nasima red or black/tarry stools. normal egd in 2019 Hold ASA continue iron supplementation at discharge Cancer: s/p left mastectomy hx of L breast ca hx of lung carcinoma s/p XRT hx of radiation pneumonitis Follow-up urology consultation recommended to exclude the possibility of a bladder lesion. Recommend outpatient Urology follow up. Depression, unspecified: Continue Sertraline; Making comments this admission about being tired. No SI. Recent inpatient admission with OD with Ativan over the past year. pt denies SI Continue Ativan 0.5 mg PO TID Senile degeneration of brain: Takes Aricept; continue Fast score: 6a Relatively independent with ADL's Dispo: Code: DNR/DNI PCP: Dr. Sun VTE Prophylaxis: TEDS/SCDS Point of Contact: Son, Han: [phone] Updated at bedside Plan to return to [facility] [place] Admission and Anticipated Discharge Date Admission Date: November 29, 2021 Subjective 11/30/2021 The patient was seen and examined in medical floor Admitted yesterday with increasing back pain for the last 3 days prior to admission without any history of fall and/or trauma Imaging studies shows new burst fracture involving T12 with subacute T10 and T11 fractures She will be taken to the OR for kyphoplasty by the spine surgeon today Feeling better otherwise Review of Systems Review of Systems: All systems reviewed and are unremarkable except as noted below Physical Exam Physical Exam: Lying in bed without any significant pain at rest Constitutional: + ill appearing and average body habitus Eyes: PERRL, conjunctivae normal, anicteric sclerae ENMT: external ear and nose normal, oropharynx normal Neck: trachea midline, no thyromegaly Respiratory: no respiratory distress Auscultation: + diminished lung sounds and + crackles (Minimal crackles at the bases) Cardiovascular: Rate/Rhythm: regular rate, regular rhythm and + tachycardic Heart Sounds: normal S1, normal S2 and + murmur Extremities: no edema Gastrointestinal (Abdomen): Inspection/Auscultation: normal bowel sounds; abdomen not distended Percussion/Palpation: abdomen soft; abdomen nontender Musculoskeletal: Localized back tenderness with pain without radiation Neurologic: normal touch/pain/proprioception and moves all extremities; no focal motor deficits Lymphatic: no cervical or axillary lymphadenopathy Results & Data Results & Data ([facility]) Vital Signs (Past 12 Hours) Vital Signs Temp Pulse Resp BP Pulse Ox O2 Del Method 11/30/21 13:02 36.8 C 70 18 165/71 H 94 Room Air 11/30/21 07:28 36.4 C L 73 16 172/76 H 92 Room Air Laboratory Results Short CBC 11/30/21 Range/Units 06:02 WBC 4.32 L (4.8-10.8) K/ul Hgb 8.1 L (12.0-16.0) g/dl Hct 26.5 L (34.1-44.9) % Plt Count 271 (130-400) K/uL BMP 11/29/21 11/30/21 15:19 06:02 Sodium 135 L 135 L Potassium 4.5 3.9 Chloride 98 99 Carbon Dioxide 29 29 BUN 17 19 Creatinine 0.79 0.78 Glucose 95 84 Calcium 8.9 8.5 Liver Function 11/29/21 Range/Units 15:19 Total Bilirubin 0.4 (0.2-1.0) mg/dl AST 28 (13-39) U/L ALT 23 (7-52) U/L Alkaline Phosphatase 91 (34-104) U/L Albumin 3.8 (3.4-5.0) gm/dl Medications Administered Current Inpatient Medications Acetaminophen (Acetaminophen 325 Mg Tab) 650 mg PO Q6 [facility] Stop: 12/29/21 18:29 Last Admin: 11/30/21 13:14 Dose: Not Given Amiodarone HCl (Amiodarone 200 Mg Tab) 200 mg PO QAM [facility] Stop: 12/30/21 08:59 Last Admin: 11/30/21 09:42 Dose: 200 mg Aspirin (Aspirin 81 Mg Ectab) 81 mg PO DAILY [facility] Stop: 01/01/22 08:59 Atropine Sulfate (Atropine Sulfate 0.1 Mg/Ml 10ml Syr) 0.5 mg IV Q1M PRN PRN Reason: PACU Use-HR<40 &/or Bradycardi Stop: 11/30/21 21:41 Benzonatate (Benzonatate 100 Mg Capsule) 100 mg PO TID PRN PRN Reason: cough Stop: 12/29/21 19:48 Calcium Carbonate (Calcium Carbonate 1250mg Tab) 1,250 mg PO BID [facility] Stop: 12/29/21 20:59 Last Admin: 11/30/21 09:44 Dose: 1,250 mg Cetirizine HCl (Cetirizine Hcl 10 Mg Tablet) 10 mg PO QAM [facility] Stop: 12/30/21 08:59 Last Admin: 11/30/21 09:42 Dose: 10 mg Docusate Sodium (Docusate Sodium 100 Mg Cap) 100 mg PO BID [facility] Stop: 12/29/21 20:59 Last Admin: 11/30/21 09:44 Dose: 100 mg Donepezil HCl (Donepezil Hcl 5 Mg Tab) 5 mg PO BID [facility] Stop: 12/29/21 20:59 Last Admin: 11/30/21 09:42 Dose: 5 mg Ephedrine Sulfate (Ephedrine Sulfate 50 Mg/Ml Amp) 5 mg IV Q5M PRN PRN Reason: PACU Use Only-SBP<90 mmHg Stop: 11/30/21 21:41 Fentanyl Citrate (Fentanyl Citrate 100 Mcg/2 Ml Vial) 50 mcg IV Q5M PRN PRN Reason: PACU Use Only-Pain Stop: 11/30/21 21:41 Fluticasone Propionate (Fluticasone Propionate Na Spr 16 Gm Btl) 2 sprays CLEMENTINA DAILY PRN PRN Reason: nasal congestion Stop: 12/29/21 19:48 Furosemide (Furosemide 40 Mg Tab) 40 mg PO QAM [facility] Stop: 12/30/21 08:59 Last Admin: 11/30/21 09:42 Dose: 40 mg Guaifenesin (Guaifenesin Sugar Free 200 Mg/10 Ml Udc) 200 mg PO Q6H PRN PRN Reason: cough Stop: 12/29/21 20:05 Hydromorphone HCl (Hydromorphone Inj 2 Mg/Ml Syr/Vial) 0.5 mg IV Q5M PRN PRN Reason: PACU Use Only-Pain Stop: 11/30/21 21:41 Promethazine HCl 12.5 mg/ (Sodium Chloride) 50.5 mls @ 204 mls/hr IV ONCE PRN PRN Reason: PACU Use Only-Nausea/Vomiting Stop: 11/30/21 21:41 Lidocaine (Lidocaine 5% 1 Patch) 1 patch TD HS [facility] Stop: 12/29/21 20:59 Last Admin: 11/29/21 21:40 Dose: 1 patch Lorazepam (Lorazepam 0.5 Mg Tab) 0.5 mg PO TID@0630,1500,2000 [facility] Stop: 12/29/21 19:59 Last Admin: 11/30/21 05:42 Dose: 0.5 mg Losartan Potassium (Losartan Potassium 25 Mg Tab) 25 mg PO QAM [facility] Stop: 12/30/21 08:59 Last Admin: 11/30/21 09:42 Dose: 25 mg Metoprolol Tartrate (Metoprolol Tartrate 25 Mg Tab) 12.5 mg PO BID [facility] Stop: 12/29/21 20:59 Last Admin: 11/30/21 09:42 Dose: 12.5 mg Miscellaneous (Remove Lidoderm Patch) 1 each N/A DAILY [facility] Stop: 12/30/21 08:59 Last Admin: 11/30/21 10:20 Dose: 1 each Montelukast Sodium (Montelukast Sodium 10 Mg Tablet) 10 mg PO HS [facility] Stop: 12/29/21 20:59 Last Admin: 11/29/21 21:41 Dose: 10 mg Morphine Sulfate (Morphine Sulfate 2 Mg/Ml Carp) 1 mg IV Q4H PRN PRN Reason: Pain Stop: 12/13/21 19:48 Ondansetron HCl (Ondansetron Inj 2 Mg/Ml 2 Ml Vial) 4 mg IV ONCE PRN PRN Reason: PACU Use Only-Nausea/Vomiting Stop: 11/30/21 21:41 Pantoprazole Sodium (Pantoprazole 40 Mg Tab) 40 mg PO BID [facility] Stop: 12/29/21 20:59 Last Admin: 11/30/21 09:43 Dose: 40 mg Potassium Chloride (Potassium Chloride 10 Meq Tabcr) 10 meq PO DAILY [facility] Stop: 12/30/21 08:59 Last Admin: 11/30/21 09:43 Dose: 10 meq Sertraline HCl (Sertraline Hcl 50 Mg Tablet) 150 mg PO QAM [facility] Stop: 12/30/21 08:59 Last Admin: 11/30/21 09:43 Dose: 150 mg Spironolactone (Spironolactone 12.5 Mg Tab) 12.5 mg PO QAM [facility] Stop: 12/30/21 08:59 Last Admin: 11/30/21 09:43 Dose: 12.5 mg Umeclidinium/Vilanterol (Umeclidinium/Vilanterol 62.5/25mcg 7 Puffs/Inhaler) 1 puffs INH DAILY [facility] Stop: 12/30/21 08:59 Last Admin: 11/30/21 09:41 Dose: 1 puffs (1) COPD (chronic obstructive pulmonary disease) COPD type: COPD with acute exacerbation Qualified Code(s): J44.1 - Chronic obstructive pulmonary disease with (acute) exacerbation
--- NOTE | 2021-11-30 15:33 | Fluoroscopy Report ---
FL thoracic spine 2V HISTORY: 89 years-old Female T11-12 KYPHOPLASTY COMPARISON: CT thoracic spine, MRI of thoracic spine 11/29/2021 TECHNIQUE: 3 spot fluoroscopic images of the spine were obtained utilizing 209.2 seconds fluoroscopy time FINDINGS: Status post thoracic kyphoplasty which appears to be at the T11 and T12 levels. Retropulsion is leonard r seen on the comparison studies. IMPRESSION: Fluoroscopic assistance as above. ACT 112: Negative or not required by law. The above report was generated using voice recognition software. It may contain grammatical, syntax o r spelling errors. Electronically signed by: Tony Zaragoza M.D. 11/30/2021 3:31 PM
--- NOTE | 2021-11-30 16:17 | Anesthesiology Progress Note ---
Date of Service November 30, 2021 Anesthesia Post Procedure Vital Signs Vital Signs: Temp Pulse Resp BP Pulse Ox O2 Del Method O2 Flow Rate 11/30/21 16:00 97.9 F 18 138/64 100 Nasal Cannula 3 11/30/21 15:50 99 H 18 135/71 100 Nasal Cannula 3 11/30/21 15:40 98 H 18 131/68 100 Oxymask 5 11/30/21 15:30 97.9 F 101 H 18 132/71 100 Oxymask 5 11/30/21 15:21 97.9 F 103 H 18 148/82 H 100 Oxymask 5 11/30/21 13:02 98.2 F 70 18 165/71 H 94 Room Air 11/30/21 07:28 97.5 F L 73 16 172/76 H 92 Room Air 11/29/21 22:17 97.5 F L 76 16 151/74 H 94 Room Air 11/29/21 18:15 95 H 18 181/89 H 94 Room Air Pain Intensity Right Lower Back: Pain Intensity: 8 Transfer of Care Handoff Completed per policy Notes Mental Status: alert / awake / arousable and participated in evaluation Patient Amnestic to Procedure: Yes Nausea / Vomiting: adequately controlled Pain: adequately controlled Airway Patency, RR, SpO2: stable & adequate BP & HR: stable & adequate Hydration State: stable & adequate Anesthetic Complications: no major complications apparent and Pt Satisfied with anesthetic care
[2021-11-30] MEDS: LIDOCAINE 5% 1 PATCH TD SCH (21:02)
[2021-11-30] MEDS: MONTELUKAST SODIUM 10 MG TABLET PO SCH (21:02)
[2021-12-01] MEDS: ACETAMINOPHEN 325 MG TAB PO SCH ×5 (00:56→23:02)
[2021-12-01] MEDS: LORazepam 0.5 MG TAB PO SCH ×3 (05:41→20:16)
[2021-12-01] MEDS: CALCIUM CARBONATE 1250MG TAB PO SCH ×2 (09:01→20:16)
[2021-12-01] MEDS: AMIODARONE 200 MG TAB PO SCH (09:01)
[2021-12-01] MEDS: SERTRALINE HCL 50 MG TABLET PO SCH (09:01)
[2021-12-01] MEDS: LOSARTAN POTASSIUM 25 MG TAB PO SCH (09:01)
[2021-12-01] MEDS: PANTOprazole 40 MG TAB PO SCH ×2 (09:01→20:16)
[2021-12-01] MEDS: SPIRONOLACTONE 12.5 MG TAB PO SCH (09:01)
[2021-12-01] MEDS: METOPROLOL TARTRATE 25 MG TAB PO SCH ×2 (09:01→20:15)
[2021-12-01] MEDS: FUROSEMIDE 40 MG TAB PO SCH (09:02)
[2021-12-01] MEDS: UMECLIDINIUM/VILANTEROL 62.5/25MCG 7 PUFFS/INHALER INH SCH (09:02)
[2021-12-01] MEDS: CETIRIZINE HCL 10 MG TABLET PO SCH (09:02)
[2021-12-01] MEDS: DONEPEZIL HCL 5 MG TAB PO SCH ×2 (09:02→20:17)
[2021-12-01] MEDS: POTASSIUM CHLORIDE 10 MEQ TABCR PO SCH (09:09)
[2021-12-01] MEDS: DOCUSATE SODIUM 100 MG CAP PO SCH ×2 (09:09→20:15)
[2021-12-01 12:08] VITALS: O2SAT 94
--- NOTE | 2021-12-01 12:39 | Orthopedic Progress Note ---
Date of Service December 01, 2021 Assessment & Plan (1) T12 burst fracture: Plan: Patient is status post kyphoplasty T11 and T12. She is tolerated this well. From orthopedic standpoint she is stable to return to home. Admission and Anticipated Discharge Date Admission Date: November 29, 2021 Subjective Patient states back pain is markedly improved. She is tolerating physical therapy. Physical Exam Physical Exam: Patient is currently in bed. She is comfortable. Is good strength testing. Results & Data ([facility]) Vital Signs (Past 12 Hours) Vital Signs Temp Pulse Resp BP Pulse Ox O2 Del Method O2 Flow Rate 12/01/21 12:05 36.4 C L 70 16 123/47 L 94 Room Air 12/01/21 08:59 75 121/58 L 12/01/21 07:43 36.6 C 68 16 130/54 L 93 Room Air 12/01/21 03:34 36.4 C L 66 16 130/61 100 Nasal Cannula 2
--- NOTE | 2021-12-01 15:55 | Hospitalist Progress Note ---
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 No neurodeficits noted Was not on any biphosphonates last admission; Ca+Carbonate added. Should consider OPT eval for Prolia/Fosomax given sponatenous multiple compression fractures Pt was on Alendronate prior and it was stopped by PCP to avoid increased fragility syndrome. Last Dexa 2018; did show some worsening in the left hip area although the low lumbar area remained unchanged. Orthopedics consultation placed; discussed with Kerry Murrell. Greately appreciate assistance. NPO after MN for possible kyphoplasty in AM after Ortho review Obtain MRI of thoracic spine as documented below Appreciate orthospine input and recommendation for kyphoplasty today Patient herself is feeling very good about it Status post T11 and T12 kyphoplasty, POD #1 She has been feeling much better following the procedure and denies any significant symptoms Has been participating in physical therapy and likely to be discharged tomorrow Imaging studies CT thoracic spine 1. Redemonstration of a T11 burst fracture with 80% loss of vertebral body height which has increased since prior study chest CT of November 12, 2021. Slight increase in retropulsion which results in moderate central canal stenosis at this level. 2. Acute T12 burst fracture with moderate loss of vertebral body height and minimal retropulsion with disruption of the posterior cortex. 3. Subacute fracture of the spinous process of T10. 4. Multiple subacute to chronic bilateral posterior rib fractures. 5. Bilateral pleural effusions, left larger than right, similar to chest CT of November 12, 2021. Thoracic spine MRI showed: 1. Acute 30% superior endplate compression of T12 with 2 mm retropulsion. No significant associated central canal stenosis at this level. 2. Acute on subacute T11 burst fracture with 5 mm retropulsion resulting in moderate central canal stenosis with moderate bilateral T10-T11 neural foraminal narrowing. 3. Subacute fracture of the T10 spinous process with subacute to chronic posterior rib fractures, better seen on the CT thoracic spine study of same day. 4. Moderate layering pleural effusions. HFpEF: no LE swelling Recent admission with acute on chronic CHF 11/12-11/18 Stable; on RA. Takes Metoprolol, Aldactone, Furosemide, PO KCl; continue Recent echocardiogram during last admission reviewed; EF 65 to 70%, left atrium severely dilated, mild MS, mild TR, moderate MR, severe pulmonary hypertension No signs and or symptoms of fluid overload Patient remains free from any cardiac symptoms Paroxysmal Atrial Fibrillation: HTN: rate/rhythm controlled on amiodarone and metoprolol 12.5 PO BID no oral anticoagulation in setting of chronic anemia at this point Continue Losartan COPD (chronic obstructive pulmonary disease) COVID: Last admission Covid positive in ED. Previously vaccinated. Received steroids and completed 5 day course of Remdesivir Discussed with Keri Truong; no need for isolation. Day #18 since symptom onset. Private room on admission. Last PFT's 04/2019: FEV1 1.17 Continue maintenance inhaler.; Megha Riddle Had a thoracentesis for large pleural effusion in June; 700 ml removed, non malignant. CXR in AM-did not show any significant change compared to prior Continue COPD medications; Montelukast Last PFT's 04/2019: FEV1 1.17 Anemia of chronic disease: Unspecified, microcytic. Hgb 8.9 on admit Pt denies any nasima red or black/tarry stools. normal egd in 2019 Hold ASA continue iron supplementation at discharge Cancer: s/p left mastectomy hx of L breast ca hx of lung carcinoma s/p XRT hx of radiation pneumonitis Follow-up urology consultation recommended to exclude the possibility of a bladder lesion. Recommend outpatient Urology follow up. Depression, unspecified: Continue Sertraline; Making comments this admission about being tired. No SI. Recent inpatient admission with OD with Ativan over the past year. pt denies SI Continue Ativan 0.5 mg PO TID Senile degeneration of brain: Takes Aricept; continue Fast score: 6a Relatively independent with ADL's Dispo: Code: DNR/DNI PCP: Dr. Sun VTE Prophylaxis: TEDS/SCDS Point of Contact: SonHan: [phone] Updated at bedside Plan to return to [facility] [place] tomorrow Admission and Anticipated Discharge Date Admission Date: November 29, 2021 Subjective 11/30/2021 The patient was seen and examined in medical floor Admitted yesterday with increasing back pain for the last 3 days prior to admission without any history of fall and/or trauma Imaging studies shows new burst fracture involving T12 with subacute T10 and T11 fractures She will be taken to the OR for kyphoplasty by the spine surgeon today Feeling better otherwise 12/01/2021 The patient was seen and examined in medical floor She is status post T11 and T12 kyphoplasty, POD #1 No complaint Has been getting physical therapy and doing well Review of Systems Review of Systems: All systems reviewed and are unremarkable except as noted below Physical Exam Physical Exam: Lying in bed without any significant pain at rest Constitutional: + ill appearing and average body habitus Eyes: PERRL, conjunctivae normal, anicteric sclerae ENMT: external ear and nose normal, oropharynx normal Neck: trachea midline, no thyromegaly Respiratory: no respiratory distress Auscultation: + diminished lung sounds and + crackles (Minimal crackles at the bases) Cardiovascular: Rate/Rhythm: regular rate, regular rhythm and + tachycardic Heart Sounds: normal S1, normal S2 and + murmur Extremities: no edema Gastrointestinal (Abdomen): Inspection/Auscultation: normal bowel sounds; abdomen not distended Percussion/Palpation: abdomen soft; abdomen nontender Neurologic: normal touch/pain/proprioception and moves all extremities; no focal motor deficits Lymphatic: no cervical or axillary lymphadenopathy Results & Data Results & Data ([facility]) Vital Signs (Past 12 Hours) Vital Signs Temp Pulse Resp BP Pulse Ox O2 Del Method 12/01/21 15:22 36.5 C 69 16 107/56 L 94 Room Air 12/01/21 12:05 36.4 C L 70 16 123/47 L 94 Room Air 12/01/21 08:59 75 121/58 L 12/01/21 07:43 36.6 C 68 16 130/54 L 93 Room Air Medications Administered Current Inpatient Medications Acetaminophen (Acetaminophen 325 Mg Tab) 650 mg PO Q6 [facility] Stop: 12/29/21 18:29 Last Admin: 12/01/21 12:40 Dose: 650 mg Amiodarone HCl (Amiodarone 200 Mg Tab) 200 mg PO QAM [facility] Stop: 12/30/21 08:59 Last Admin: 12/01/21 09:01 Dose: 200 mg Aspirin (Aspirin 81 Mg Ectab) 81 mg PO DAILY [facility] Stop: 01/01/22 08:59 Benzonatate (Benzonatate 100 Mg Capsule) 100 mg PO TID PRN PRN Reason: cough Stop: 12/29/21 19:48 Calcium Carbonate (Calcium Carbonate 1250mg Tab) 1,250 mg PO BID [facility] Stop: 12/29/21 20:59 Last Admin: 12/01/21 09:01 Dose: 1,250 mg Cetirizine HCl (Cetirizine Hcl 10 Mg Tablet) 10 mg PO QAM [facility] Stop: 12/30/21 08:59 Last Admin: 12/01/21 09:02 Dose: 10 mg Docusate Sodium (Docusate Sodium 100 Mg Cap) 100 mg PO BID [facility] Stop: 12/29/21 20:59 Last Admin: 12/01/21 09:09 Dose: 100 mg Donepezil HCl (Donepezil Hcl 5 Mg Tab) 5 mg PO BID [facility] Stop: 12/29/21 20:59 Last Admin: 12/01/21 09:02 Dose: 5 mg Fluticasone Propionate (Fluticasone Propionate Na Spr 16 Gm Btl) 2 sprays CLEMENTINA DAILY PRN PRN Reason: nasal congestion Stop: 12/29/21 19:48 Furosemide (Furosemide 40 Mg Tab) 40 mg PO QAM [facility] Stop: 12/30/21 08:59 Last Admin: 12/01/21 09:02 Dose: 40 mg Guaifenesin (Guaifenesin Sugar Free 200 Mg/10 Ml Udc) 200 mg PO Q6H PRN PRN Reason: cough Stop: 12/29/21 20:05 Lidocaine (Lidocaine 5% 1 Patch) 1 patch TD HS [facility] Stop: 12/29/21 20:59 Last Admin: 11/30/21 21:02 Dose: Not Given Lorazepam (Lorazepam 0.5 Mg Tab) 0.5 mg PO TID@0630,1500,2000 [facility] Stop: 12/29/21 19:59 Last Admin: 12/01/21 15:19 Dose: 0.5 mg Losartan Potassium (Losartan Potassium 25 Mg Tab) 25 mg PO QAM [facility] Stop: 12/30/21 08:59 Last Admin: 12/01/21 09:01 Dose: 25 mg Metoprolol Tartrate (Metoprolol Tartrate 25 Mg Tab) 12.5 mg PO BID [facility] Stop: 12/29/21 20:59 Last Admin: 12/01/21 09:01 Dose: 12.5 mg Miscellaneous (Remove Lidoderm Patch) 1 each N/A DAILY [facility] Stop: 12/30/21 08:59 Last Admin: 12/01/21 09:03 Dose: Not Given Montelukast Sodium (Montelukast Sodium 10 Mg Tablet) 10 mg PO HS [facility] Stop: 12/29/21 20:59 Last Admin: 11/30/21 21:02 Dose: 10 mg Morphine Sulfate (Morphine Sulfate 2 Mg/Ml Carp) 1 mg IV Q4H PRN PRN Reason: Pain Stop: 12/13/21 19:48 Pantoprazole Sodium (Pantoprazole 40 Mg Tab) 40 mg PO BID [facility] Stop: 12/29/21 20:59 Last Admin: 12/01/21 09:01 Dose: 40 mg Potassium Chloride (Potassium Chloride 10 Meq Tabcr) 10 meq PO DAILY [facility] Stop: 12/30/21 08:59 Last Admin: 12/01/21 09:09 Dose: 10 meq Sertraline HCl (Sertraline Hcl 50 Mg Tablet) 150 mg PO QAM [facility] Stop: 12/30/21 08:59 Last Admin: 12/01/21 09:01 Dose: 150 mg Spironolactone (Spironolactone 12.5 Mg Tab) 12.5 mg PO QAM [facility] Stop: 12/30/21 08:59 Last Admin: 12/01/21 09:01 Dose: 12.5 mg Umeclidinium/Vilanterol (Umeclidinium/Vilanterol 62.5/25mcg 7 Puffs/Inhaler) 1 puffs INH DAILY [facility] Stop: 12/30/21 08:59 Last Admin: 12/01/21 09:02 Dose: 1 puffs (1) COPD (chronic obstructive pulmonary disease) COPD type: COPD with acute exacerbation Qualified Code(s): J44.1 - Chronic obstructive pulmonary disease with (acute) exacerbation
[2021-12-01] MEDS: MONTELUKAST SODIUM 10 MG TABLET PO SCH (20:15)
[2021-12-01] MEDS: LIDOCAINE 5% 1 PATCH TD SCH (20:16)
[2021-12-01 23:20] VITALS: PULSE 74
[2021-12-02] MEDS: ACETAMINOPHEN 325 MG TAB PO SCH ×2 (05:51→11:57)
[2021-12-02] MEDS: LORazepam 0.5 MG TAB PO SCH (05:51)
[2021-12-02] MEDS: DOCUSATE SODIUM 100 MG CAP PO SCH (07:36)
[2021-12-02 07:44] VITALS: BP 138/66; TEMP 97.7
[2021-12-02] MEDS ORDERED: ASPIRIN 81 MG ECTAB PO SCH (09:00)
[2021-12-02] MEDS: UMECLIDINIUM/VILANTEROL 62.5/25MCG 7 PUFFS/INHALER INH SCH (09:08)
[2021-12-02] MEDS: PANTOprazole 40 MG TAB PO SCH (09:09)
[2021-12-02] MEDS: SERTRALINE HCL 50 MG TABLET PO SCH (09:09)
[2021-12-02] MEDS: METOPROLOL TARTRATE 25 MG TAB PO SCH (09:09)
[2021-12-02] MEDS: LOSARTAN POTASSIUM 25 MG TAB PO SCH (09:09)
[2021-12-02] MEDS: CALCIUM CARBONATE 1250MG TAB PO SCH (09:09)
[2021-12-02] MEDS: SPIRONOLACTONE 12.5 MG TAB PO SCH (09:10)
[2021-12-02] MEDS: AMIODARONE 200 MG TAB PO SCH (09:10)
[2021-12-02] MEDS: CETIRIZINE HCL 10 MG TABLET PO SCH (09:10)
[2021-12-02] MEDS: DONEPEZIL HCL 5 MG TAB PO SCH (09:10)
[2021-12-02] MEDS: POTASSIUM CHLORIDE 10 MEQ TABCR PO SCH (09:10)
[2021-12-02] MEDS: FUROSEMIDE 40 MG TAB PO SCH (09:10)
--- NOTE | 2021-12-02 10:47 | Hospitalist Progress Note ---
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 No neurodeficits noted Was not on any biphosphonates last admission; Ca+Carbonate added. Should consider OPT eval for Prolia/Fosomax given sponatenous multiple compression fractures Pt was on Alendronate prior and it was stopped by PCP to avoid increased fragility syndrome. Last Dexa 2018; did show some worsening in the left hip area although the low lumbar area remained unchanged. Orthopedics consultation placed; discussed with Kerry Murrell. Greately appreciate assistance. NPO after MN for possible kyphoplasty in AM after Ortho review Obtain MRI of thoracic spine as documented below Appreciate orthospine input and recommendation for kyphoplasty today Patient herself is feeling very good about it Status post T11 and T12 kyphoplasty, POD #1 She has been feeling much better following the procedure and denies any significant symptoms Has been participating in physical therapy and likely to be discharged tomorrow POD #2 status post kyphoplasty and remained stable Has had physical therapy evaluation without any issues She will be discharged back to [facility] this afternoon Imaging studies CT thoracic spine 1. Redemonstration of a T11 burst fracture with 80% loss of vertebral body height which has increased since prior study chest CT of November 12, 2021. Slight increase in retropulsion which results in moderate central canal stenosis at this level. 2. Acute T12 burst fracture with moderate loss of vertebral body height and minimal retropulsion with disruption of the posterior cortex. 3. Subacute fracture of the spinous process of T10. 4. Multiple subacute to chronic bilateral posterior rib fractures. 5. Bilateral pleural effusions, left larger than right, similar to chest CT of November 12, 2021. Thoracic spine MRI showed: 1. Acute 30% superior endplate compression of T12 with 2 mm retropulsion. No significant associated central canal stenosis at this level. 2. Acute on subacute T11 burst fracture with 5 mm retropulsion resulting in moderate central canal stenosis with moderate bilateral T10-T11 neural foraminal narrowing. 3. Subacute fracture of the T10 spinous process with subacute to chronic posterior rib fractures, better seen on the CT thoracic spine study of same day. 4. Moderate layering pleural effusions. HFpEF: no LE swelling Recent admission with acute on chronic CHF 11/12-11/18 Stable; on RA. Takes Metoprolol, Aldactone, Furosemide, PO KCl; continue Recent echocardiogram during last admission reviewed; EF 65 to 70%, left atrium severely dilated, mild MS, mild TR, moderate MR, severe pulmonary hypertension No signs and or symptoms of fluid overload Patient remains free from any cardiac symptoms Paroxysmal Atrial Fibrillation: HTN: rate/rhythm controlled on amiodarone and metoprolol 12.5 PO BID no oral anticoagulation in setting of chronic anemia at this point Continue Losartan Rate remains controlled and the blood pressure is maintained COPD (chronic obstructive pulmonary disease) COVID: Last admission Covid positive in ED. Previously vaccinated. Received steroids and completed 5 day course of Remdesivir Discussed with Keri Truong; no need for isolation. Day #18 since symptom onset. Private room on admission. Last PFT's 04/2019: FEV1 1.17 Continue maintenance inhaler.; Megha Riddle Had a thoracentesis for large pleural effusion in June; 700 ml removed, non malignant. CXR in AM-did not show any significant change compared to prior Continue COPD medications; Montelukast Last PFT's 04/2019: FEV1 1.17 Anemia of chronic disease: Unspecified, microcytic. Hgb 8.9 on admit Pt denies any nasima red or black/tarry stools. normal egd in 2019 Hold ASA continue iron supplementation at discharge Cancer: s/p left mastectomy hx of L breast ca hx of lung carcinoma s/p XRT hx of radiation pneumonitis Follow-up urology consultation recommended to exclude the possibility of a bladder lesion. Recommend outpatient Urology follow up. Depression, unspecified: Continue Sertraline; Making comments this admission about being tired. No SI. Recent inpatient admission with OD with Ativan over the past year. pt denies SI Continue Ativan 0.5 mg PO TID Senile degeneration of brain: Takes Aricept; continue Fast score: 6a Relatively independent with ADL's Dispo: Code: DNR/DNI PCP: Dr. Sun VTE Prophylaxis: TEDS/SCDS Point of Contact: SonHan: [phone] Updated at bedside Plan to return to [facility] this afternoon Admission and Anticipated Discharge Date Admission Date: November 29, 2021 Subjective 11/30/2021 The patient was seen and examined in medical floor Admitted yesterday with increasing back pain for the last 3 days prior to admission without any history of fall and/or trauma Imaging studies shows new burst fracture involving T12 with subacute T10 and T11 fractures She will be taken to the OR for kyphoplasty by the spine surgeon today Feeling better otherwise 12/01/2021 The patient was seen and examined in medical floor She is status post T11 and T12 kyphoplasty, POD #1 No complaint Has been getting physical therapy and doing well 12/02/2021 The patient was seen and examined in medical floor She remains stable following kyphoplasty Has had physical therapy without any issues Will be discharged this afternoon Review of Systems Review of Systems: All systems reviewed and are unremarkable except as noted below Physical Exam Physical Exam: Lying in bed without any significant pain at rest Constitutional: + thin; not ill appearing Eyes: PERRL, conjunctivae normal, anicteric sclerae ENMT: external ear and nose normal, oropharynx normal Neck: trachea midline, no thyromegaly Respiratory: no respiratory distress Auscultation: + diminished lung sounds and + crackles (Minimal crackles at the bases) Cardiovascular: Rate/Rhythm: regular rate, regular rhythm and + tachycardic Heart Sounds: normal S1, normal S2 and + murmur Extremities: no edema Gastrointestinal (Abdomen): Inspection/Auscultation: normal bowel sounds; abdomen not distended Percussion/Palpation: abdomen soft; abdomen nontender Neurologic: normal touch/pain/proprioception and moves all extremities; no focal motor deficits Lymphatic: no cervical or axillary lymphadenopathy Results & Data Results & Data ([facility]) Vital Signs (Past 12 Hours) Vital Signs Temp Pulse Resp BP Pulse Ox O2 Del Method 12/02/21 07:43 36.5 C 74 16 138/66 94 Room Air 12/01/21 23:19 36.6 C 74 16 155/70 H 94 Room Air Medications Administered Current Inpatient Medications Acetaminophen (Acetaminophen 325 Mg Tab) 650 mg PO Q6 MARILIA Stop: 12/29/21 18:29 Last Admin: 12/02/21 05:51 Dose: 650 mg Amiodarone HCl (Amiodarone 200 Mg Tab) 200 mg PO QAM MARILIA Stop: 12/30/21 08:59 Last Admin: 12/02/21 09:10 Dose: 200 mg Aspirin (Aspirin 81 Mg Ectab) 81 mg PO DAILY MARILIA Stop: 01/01/22 08:59 Last Admin: 12/02/21 09:10 Dose: 81 mg Benzonatate (Benzonatate 100 Mg Capsule) 100 mg PO TID PRN PRN Reason: cough Stop: 12/29/21 19:48 Calcium Carbonate (Calcium Carbonate 1250mg Tab) 1,250 mg PO BID MARILIA Stop: 12/29/21 20:59 Last Admin: 12/02/21 09:09 Dose: 1,250 mg Cetirizine HCl (Cetirizine Hcl 10 Mg Tablet) 10 mg PO QAM MARILIA Stop: 12/30/21 08:59 Last Admin: 12/02/21 09:10 Dose: 10 mg Docusate Sodium (Docusate Sodium 100 Mg Cap) 100 mg PO BID MARILIA Stop: 12/29/21 20:59 Last Admin: 12/02/21 07:36 Dose: Not Given Donepezil HCl (Donepezil Hcl 5 Mg Tab) 5 mg PO BID MARILIA Stop: 12/29/21 20:59 Last Admin: 12/02/21 09:10 Dose: 5 mg Fluticasone Propionate (Fluticasone Propionate Na Spr 16 Gm Btl) 2 sprays CLEMENTINA DAILY PRN PRN Reason: nasal congestion Stop: 12/29/21 19:48 Furosemide (Furosemide 40 Mg Tab) 40 mg PO QAM MARILIA Stop: 12/30/21 08:59 Last Admin: 12/02/21 09:10 Dose: 40 mg Guaifenesin (Guaifenesin Sugar Free 200 Mg/10 Ml Udc) 200 mg PO Q6H PRN PRN Reason: cough Stop: 12/29/21 20:05 Lidocaine (Lidocaine 5% 1 Patch) 1 patch TD HS MARILIA Stop: 12/29/21 20:59 Last Admin: 12/01/21 20:16 Dose: 1 patch Lorazepam (Lorazepam 0.5 Mg Tab) 0.5 mg PO TID@0630,1500,2000 MARILIA Stop: 12/29/21 19:59 Last Admin: 12/02/21 05:51 Dose: 0.5 mg Losartan Potassium (Losartan Potassium 25 Mg Tab) 25 mg PO QAM MARILIA Stop: 12/30/21 08:59 Last Admin: 12/02/21 09:09 Dose: 25 mg Metoprolol Tartrate (Metoprolol Tartrate 25 Mg Tab) 12.5 mg PO BID MARILIA Stop: 12/29/21 20:59 Last Admin: 12/02/21 09:09 Dose: 12.5 mg Miscellaneous (Remove Lidoderm Patch) 1 each N/A DAILY MARILIA Stop: 12/30/21 08:59 Last Admin: 12/02/21 09:27 Dose: 1 each Montelukast Sodium (Montelukast Sodium 10 Mg Tablet) 10 mg PO HS MARILIA Stop: 12/29/21 20:59 Last Admin: 12/01/21 20:15 Dose: 10 mg Morphine Sulfate (Morphine Sulfate 2 Mg/Ml Carp) 1 mg IV Q4H PRN PRN Reason: Pain Stop: 12/13/21 19:48 Pantoprazole Sodium (Pantoprazole 40 Mg Tab) 40 mg PO BID MARILIA Stop: 12/29/21 20:59 Last Admin: 12/02/21 09:09 Dose: 40 mg Potassium Chloride (Potassium Chloride 10 Meq Tabcr) 10 meq PO DAILY MARILIA Stop: 12/30/21 08:59 Last Admin: 12/02/21 09:10 Dose: 10 meq Sertraline HCl (Sertraline Hcl 50 Mg Tablet) 150 mg PO QAM MARILIA Stop: 12/30/21 08:59 Last Admin: 12/02/21 09:09 Dose: 150 mg Spironolactone (Spironolactone 12.5 Mg Tab) 12.5 mg PO QAM MARILIA Stop: 12/30/21 08:59 Last Admin: 12/02/21 09:10 Dose: 12.5 mg Umeclidinium/Vilanterol (Umeclidinium/Vilanterol 62.5/25mcg 7 Puffs/Inhaler) 1 puffs INH DAILY MARILIA Stop: 12/30/21 08:59 Last Admin: 12/02/21 09:08 Dose: 1 puffs (1) COPD (chronic obstructive pulmonary disease) COPD type: COPD with acute exacerbation Qualified Code(s): J44.1 - Chronic obstructive pulmonary disease with (acute) exacerbation
--- NOTE | 2021-12-02 18:24 | Discharge Summary ---
Date of Service December 02, 2021 Admission HPI Per Admitting Provider This is an 89-year-old female with a complex past medical history the presents to the ED with her son, Morgan with increased back pain. She had a fall with a subsequent hospital admission from 10/02-10/05 2021 with a T10-T11 subacute burst fracture that was noted. The patient was following with [facility] outpatient for chornic bilateral rib fractures with vest therapy as well. She noticed over the past 3 days her back pain has become increasingly more uncomfortable. She denies any additional falls, trauma, no neuropathy or tingling down either extremity, loss of bowel or bladder control, blurry vision, double vision, SOB, CP, palpitations, N/V/D, constipation, new skin rashes, no fevers. Thoracic spine CT revealed: T11 burst fracture with 80% loss of vertebral body height which has increased since prior study chest CT of November 12, 2021, an Acute T12 burst fracture, subacute fracture of the spinous process of T10 and multiple subacute to chronic bilateral posterior rib fractures. She has an extensive PMH that includes: left breast cancer s/p left radical mastectomy, radiation pneumonitis, concerning right upper lobe lesion for possible carcinoma status post empiric radiation, asthmaCOPD, HTN, HFpEF, Senil e Degeneration of the Brain, pAF, and anemia of chronic disease. Pt with increasing inpatient hospitalizations 06/24 to 06/29/2021, 07/06-07/09 for SOB and secondary to acute HFpEF. She also had an admission recently 11/12-11/18 for acute on chronic CHF also with testing positive for COVID-19 for which she completed an inpatient course of steroids and Remdesivir. She underwent thoracentesis on right at 800 mL in 06/2021 and it was transudative and negative for malignancy. Pt has senile degeneration of the brain and is able to communicate and participate in her goals of care, but is a poor historian overall. Patient is sitting at about a 30 degree angle during my encounter. She appeared in no apparent distress. Her pain was reproducible with dorsiflexion in her left foot and isolated to her periformis and lower back area without radiation. Pt with nonproductive cough, which she says is chronic. Patient will be admitted under hospitalist service for further management. Admission Exam Per Admitting Provider Physical Exam: Neuro: AAOx4, PERRLA, no dysarthria, CNII-XII grossly intact HEENT: head normocephalic, moist mucus membranes CV: S1/S2, (-) M/G/R, (-) edema, cap refill < 3 seconds Resp: Lungs CTA in all croft. On RA (+) nonproductive cough GI: Abdomen S/NT/ND, Ax4 bowel sounds, (-) CVA tenderness Musculoskeletal: 5/5 B/L UE strength, 3/5 B/L LE strength. (+) pain on left lower back with left foot dorsiflexion Skin: (-) rashes , (-) erythema. Psych: euthymic mood Principal Diagnosis T12 burst fracture status post kyphoplasty, paroxysmal atrial fibrillation, COPD, hypertension Discharge Exam Lying in bed without any significant pain at rest Constitutional average body habitus and + thin; not ill appearing Eyes PERRL, conjunctivae normal, anicteric sclerae ENMT external ear and nose normal, oropharynx normal Neck trachea midline, no thyromegaly Respiratory no respiratory distress Auscultation: + diminished lung sounds and + crackles (Minimal crackles at the bases) Cardiovascular Rate/Rhythm: regular rate, regular rhythm and + tachycardic Heart Sounds: normal S1, normal S2 and + murmur Extremities: no edema Gastrointestinal (Abdomen) Inspection/Auscultation: normal bowel sounds; abdomen not distended Percussion/Palpation: abdomen soft; abdomen nontender Neurologic normal touch/pain/proprioception and moves all extremities; no focal motor deficits Lymphatic no cervical or axillary lymphadenopathy Discharge Data Allergies Allergy/AdvReac Type Severity Reaction Status Date / Time bee venom protein (honey bee) Allergy Severe ANAPHYLAXIS Verified 10/02/21 17:08 Consultations 11/29/21 14:06 ED Decision to Admit Stat 11/29/21 14:35 Consult Orthopedic Surgery Routine Procedures Performed Operation Date: 11/30/21 13:40 Actual Procedures p T11 and T12 Kyphoplasty(Not Applicable) - Amilcar Hurley, Ordered Studies 11/29/21 12:27 CT lumbar spine wo con Stat CT pelvis wo con Stat 11/29/21 12:28 CT thoracic spine wo con Stat 11/29/21 15:40 MR thoracic spine wo con Stat 11/30/21 14:00 FL thoracic spine 2V Routine Hospital Course (1) Degenerative disc disease: (2) T12 burst fracture: (3) Left low back pain: (4) Chronic heart failure with preserved ejection fraction: (5) COPD (chronic obstructive pulmonary disease): (6) COVID-19: (7) PAF (paroxysmal atrial fibrillation): (8) HTN (hypertension): (9) Anemia of chronic disease: (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 No neurodeficits noted Was not on any biphosphonates last admission; Ca+Carbonate added. Should consider OPT eval for Prolia/Fosomax given sponatenous multiple compression fractures Pt was on Alendronate prior and it was stopped by PCP to avoid increased fragility syndrome. Last Dexa 2018; did show some worsening in the left hip area although the low lumbar area remained unchanged. Orthopedics consultation placed; discussed with Kerry Murrell. Greately appreciate assistance. NPO after MN for possible kyphoplasty in AM after Ortho review Obtain MRI of thoracic spine as documented below Appreciate orthospine input and recommendation for kyphoplasty today Patient herself is feeling very good about it Status post T11 and T12 kyphoplasty, POD #1 She has been feeling much better following the procedure and denies any significant symptoms Has been participating in physical therapy and likely to be discharged tomorrow POD #2 status post kyphoplasty and remained stable Has had physical therapy evaluation without any issues She will be discharged back to [facility] this afternoon Imaging studies CT thoracic spine 1. Redemonstration of a T11 burst fracture with 80% loss of vertebral body heig ht which has increased since prior study chest CT of November 12, 2021. Slight increase in retropulsion which results in moderate central canal stenosis at this level. 2. Acute T12 burst fracture with moderate loss of vertebral body height and minimal retropulsion with disruption of the posterior cortex. 3. Subacute fracture of the spinous process of T10. 4. Multiple subacute to chronic bilateral posterior rib fractures. 5. Bilateral pleural effusions, left larger than right, similar to chest CT of November 12, 2021. Thoracic spine MRI showed: 1. Acute 30% superior endplate compression of T12 with 2 mm retropulsion. No significant associated central canal stenosis at this level. 2. Acute on subacute T11 burst fracture with 5 mm retropulsion resulting in moderate central canal stenosis with moderate bilateral T10-T11 neural foraminal narrowing. 3. Subacute fracture of the T10 spinous process with subacute to chronic posterior rib fractures, better seen on the CT thoracic spine study of same day. 4. Moderate layering pleural effusions. HFpEF: no LE swelling Recent admission with acute on chronic CHF 11/12-11/18 Stable; on RA. Takes Metoprolol, Aldactone, Furosemide, PO KCl; continue Recent echocardiogram during last admission reviewed; EF 65 to 70%, left atrium severely dilated, mild MS, mild TR, moderate MR, severe pulmonary hypertension No signs and or symptoms of fluid overload Patient remains free from any cardiac symptoms Paroxysmal Atrial Fibrillation: HTN: rate/rhythm controlled on amiodarone and metoprolol 12.5 PO BID no oral anticoagulation in setting of chronic anemia at this point Continue Losartan Rate remains controlled and the blood pressure is maintained COPD (chronic obstructive pulmonary disease) COVID: Last admission Covid positive in ED. Previously vaccinated. Received steroids and completed 5 day course of Remdesivir Discussed with Keri Truong; no need for isolation. Day #18 since symptom onset. Private room on admission. Last PFT's 04/2019: FEV1 1.17 Continue maintenance inhaler.; Megha Riddle Had a thoracentesis for large pleural effusion in June; 700 ml removed, non malignant. CXR in AM-did not show any significant change compared to prior Continue COPD medications; Montelukast Last PFT's 04/2019: FEV1 1.17 Anemia of chronic disease: Unspecified, microcytic. Hgb 8.9 on admit Pt denies any nasima red or black/tarry stools. normal egd in 2019 Hold ASA continue iron supplementation at discharge Cancer: s/p left mastectomy hx of L breast ca hx of lung carcinoma s/p XRT hx of radiation pneumonitis Follow-up urology consultation recommended to exclude the possibility of a bladder lesion. Recommend outpatient Urology follow up. Depression, unspecified: Continue Sertraline; Making comments this admission about being tired. No SI. Recent inpatient admission with OD with Ativan over the past year. pt denies SI Continue Ativan 0.5 mg PO TID Senile degeneration of brain: Takes Aricept; continue Fast score: 6a Relatively independent with ADL's Dispo: Code: DNR/DNI PCP: Dr. Sun VTE Prophylaxis: TEDS/SCDS Point of Contact: SonHan: [phone] Updated at bedside Plan to return to [facility] this afternoon Total Time Total Time Spent Total Time Spent (In Minutes): 35 minutes Discharge Plan Discharge Items Patient Disposition: Personal Usp Reason For Visit: PAIN Discharge Diagnosis: T12 burst fracture status post kyphoplasty, paroxysmal atrial fibrillation, COPD, hypertension Condition on Discharge: Fair Activity: Resume your previous activity Non-emergency contact: Primary Care Provider Call non-emergency contact if: you have any medication questions and your symptoms worsen Follow-up/Referrals: Bear Rodriguez MD [Outside Practitioners] - 12/07/21 11:20 am (Date & Time 12/07/2021 11:20 AM Provider Bear Rodriguez MD Department [facility] ) [facility] [Primary Care Provider] - Diet: Heart Healthy Fluids: 1500ml (6 cups) Addtl Attending Provider Instructions: Patient can ambulate as tolerated. She is to lift no more than 5 pounds. Please follow my office in 2 weeks for x-rays and evaluation. Pending Studies at Discharge: No Stand-Alone Forms: My [facility] [email or web address], Smoking Cessation Skilled Items Patient informed of condition?: Yes DNR: Yes Discharge Level of Care: Other Communicable Disease: No Discharge Prognosis: Stable Lines: None Urinary Catheter: No Medications and DC Order Prescriptions: New lidocaine 5 % Adhesive Patch,Medicated 1 patch transdermal HS 30 Days Qty: 30 0RF Continued losartan 25 mg Tablet 25 mg PO QAM aspirin 81 mg Tablet,Delayed Release (Dr/Ec) 81 mg PO QAM Stiolto Respimat 2.5-2.5 mcg/actuation Mist 1 puff INHALATION QAM montelukast 10 mg tablet 10 mg PO HS Rx Instructions: TAKE 1 TABLET BY MOUTH EVERYDAY AT BEDTIME donepezil 5 mg Tablet 5 mg PO BID lorazepam 0.5 mg Tablet 0.5 mg PO TID Rx Instructions: TAKES AT 0630, 1500 & 2000. docusate sodium [Colace] 100 mg Capsule 100 mg PO BID calcium carbonate 500 mg calcium (1,250 mg) Tablet,Chewable 500 mg PO BID benzonatate 100 mg capsule 100 mg PO TID PRN (Reason: cough) Qty: 30 0RF cetirizine [Zyrtec] 10 mg Tablet 10 mg PO QAM amiodarone 200 mg tablet 200 mg PO QAM spironolactone 25 mg tablet 12.5 mg PO QAM pantoprazole 40 mg tablet,delayed release (DR/EC) 40 mg PO BID metoprolol tartrate 25 mg tablet 12.5 mg PO BID sertraline 100 mg tablet 150 mg PO QAM furosemide 40 mg Tablet 40 mg PO QAM Qty: 30 0RF potassium chloride 10 mEq Tablet,Er Particles/Crystals 10 meq PO DAILY Qty: 30 0RF fluticasone propionate 50 mcg/actuation [place],Suspension 2 spray CLEMENTINA DAILY PRN (Reason: nasal congestion) Qty: 16 0RF guaifenesin 100 mg/5 mL liquid 200 mg PO Q6H PRN (Reason: cough) Qty: 500 0RF Discharge Orders: Discharge Order (Routine); Ordered 12/02/21 Ordered By: Isaura Pretty Admission Data Admit Date/Time: 11/29/21 14:35 Attending Provider: Isaura Pretty Admit Provider: Michael Matthew Primary Care Provider: STATE GEORGINA MONGE Other Providers: Michael Matthew ; Amilcar Hruley Other Interventions: Discharge Summary Assessment (RN) Last Done: 12/02/21 11:40
--- NOTE | 2021-12-20 10:51 | Coding Query ---
A supporting diagnosis is required for the test/procedure performed on this patient in order for us to be reimbursed by the patient's insurance. Please provide a supporting diagnosis for the following test/procedure listed below next to the test name along with your signature. *If there is no additional diagnosis for this patient that would support the following test/procedure please document that below next to the test/procedure. Test(s)/Procedure(s) that require a supporting diagnosis: Perq vertebral augmentation x2 DIAGNOSIS: Provider Signature: Date: Thank you Lillian Abdalla Health Information Management Once completed, please kindly fax back to [phone] For questions please call [phone] [facility]
== END 2021-12-02 13:49 | disposition home or self-care (01) ==
LOC: ED 11:59 → INTOOBSV 14:35 → SUATTDRO 15:12 → EDINP 15:12 → 3W 19:49

== ENCOUNTER 2021-12-13 21:37 | Observation (INO) ==
[2021-12-13 22:59] LABS: Basophils # (auto) 0.05 K/uL (0-0.2); Basophils % (auto) 0.9 %; Eosinophils # (auto) 0.07 K/uL (0-0.50); Eosinophils % (auto) 1.3 %; Hematocrit (blood only) 27.8 % (34.1-44.9); Hemoglobin 8.4 g/dl (12.0-16.0); Immature Granulocytes # (auto) 0.01 K/uL (0.00-0.02); Immature Granulocytes % (auto) 0.2 %; Lymphocytes # (auto) 0.81 K/uL (1.2-3.4); Lymphocytes % (auto) 14.5 %; Mean Corpuscular Hemoglobin 23.6 pg (25.0-34.0); Mean Corpuscular Hgb Conc 30.2 g/dL (32.0-36.0); Mean Corpuscular Volume 78.1 fL (80.0-100.0); Monocytes # (auto) 0.69 K/uL (0.24-0.82); Monocytes % (auto) 12.3 %; Neutrophils # (auto) 3.96 K/uL (1.4-6.5); Neutrophils % (auto) 70.8 %; Platelet Count 368 K/uL (130-400); RDW Coefficient of Variation 20.8 % (11.5-14.5); RDW Standard Deviation 58.8 fL (36.4-46.3); Red Blood Count 3.56 M/uL (3.93-5.22); White Blood Count 5.59 K/ul (4.8-10.8)
[2021-12-13 23:18] LABS: Partial Thromboplastin Ratio 0.9; Partial Thromboplastin Time 23.9 Seconds (21.0-31.0); Prothrombin Time 10.9 Seconds (9.0-12.0)
[2021-12-13 23:19] LABS: Alanine Aminotransferase 32 U/L (7-52); Albumin Globulin Ratio 1.4 (0.9-2); Albumin Level 3.9 gm/dl (3.4-5.0); Alkaline Phosphatase 96 U/L (34-104); Anion Gap 9 (3-11); Aspartate Aminotransferase 26 U/L (13-39); BUN Creatinine Ratio 21.7 (10-20); Bilirubin,Total 0.4 mg/dl (0.2-1.0); Blood Urea Nitrogen 28 mg/dl (6-23); Calcium 8.8 mg/dl (8.5-10.1); Carbon Dioxide 28 mmol/L (21-32); Chloride 99 mmol/L (98-107); Est GFR (African American) 42.5 ml/min; Est GFR (Non-African American) 36.7 ml/min; Globulin 2.7 gm/dl (2.5-4.0); Glucose 96 mg/dl (70-99(Fasting)); Magnesium 1.9 mg/dl (1.7-2.4); Potassium 3.6 mmol/L (3.5-5.1); Sodium 136 mmol/L (136-145); Total Protein 6.6 gm/dl (6.0-8.3)
[2021-12-13 23:28] LABS: Hypochromasia Present; Ovalocytes 1+; Polychromasia 1+
[2021-12-14] MEDS ORDERED: ALBUT/IPRATROP 3MG/0.5MG NEB 3 ML VIAL NEB STA ×2 (00:02→02:22)
[2021-12-14] MEDS ORDERED: methylPREDNISolone 125 MG/2 ML VIAL IV STA (00:02)
--- NOTE | 2021-12-14 00:30 | Emergency Department Note ---
History of Present Illness General Chief complaint: Cough Stated complaint: COUGHING,VOMITTING,BACK PAIN Time Seen by Provider: 12/13/21 23:48 History of Present Illness Maximum Pain Intensity: 7 This 89-year-old with COPD presents to the ER complaining of cough congestion and shortness of breath for the past few days who had recent back surgery Location: Chest Quality: Hard to breathe Severity: Moderate Duration: Past few days Timing: Started few days ago Context: Patient was concerned and came in Modifying factors: better with rest; worse with activity Patient denies chest pain, high fevers, vomiting, diarrhea, abdominal pain, leg pain or swelling. She does not smoke. Home Medications Medication Instructions Recorded Confirmed Type aspirin 81 mg tablet,delayed 81 mg PO QAM 04/30/21 12/14/21 History release montelukast 10 mg tablet 10 mg PO HS 04/30/21 12/14/21 History tiotropium 2.5 mcg-olodaterol 2.5 1 puff inhalation QAM 04/30/21 12/14/21 History mcg/actuation mist for inhalation (Stiolto Respimat) calcium carbonate 500 mg calcium 500 mg PO BID 06/24/21 12/14/21 History (1,250 mg) chewable tablet docusate sodium 100 mg capsule 100 mg PO BID 06/24/21 12/14/21 History (Colace) donepezil 5 mg tablet 5 mg PO BID 06/24/21 12/14/21 History lorazepam 0.5 mg tablet 0.5 mg PO TID 06/24/21 12/14/21 History sertraline 100 mg tablet 200 mg PO QAM 07/06/21 12/14/21 History potassium chloride 10 mEq 10 meq PO DAILY #30 tabs 07/09/21 12/14/21 Rx tablet,extended release(part/cryst) amiodarone 200 mg tablet 200 mg PO QAM 10/02/21 12/14/21 History metoprolol tartrate 25 mg tablet 12.5 mg PO BID 10/02/21 12/14/21 History pantoprazole 40 mg tablet,delayed 40 mg PO BID 10/02/21 12/14/21 History release acetaminophen 325 mg tablet 650 mg PO Q4H PRN PAIN/FEVER 12/14/21 12/14/21 History (Tylenol) epinephrine 0.3 mg/0.3 mL 0.3 mg IM DIRECTED PRN Allergic 12/14/21 12/14/21 History injection, auto-injector (EpiPen) Reaction ferrous sulfate 325 mg (65 mg 325 mg PO DAILY 12/14/21 12/14/21 History iron) tablet guaifenesin 200 mg tablet 200 mg PO TID PRN CHEST CONGESTION 12/14/21 12/14/21 History lidocaine 5 % topical patch 1 patch transdermal QAM 12/14/21 12/14/21 History Allergies Allergy/AdvReac Type Severity Reaction Status Date / Time bee venom protein (honey bee) Allergy Severe ANAPHYLAXIS Verified 12/14/21 01:31 Past Med/Surg History Medical History Abnormal CT of the chest Acute on chronic heart failure with preserved ejection fraction Anemia of chronic disease Anxiety Anxiety Asthma USING RESCUE INHALER FREQUENTLY/DAILY Asthma-COPD overlap syndrome Cancer BREAST CANCER-LEFT MASTECTOMY Chronic obstructive pulmonary disease COPD (chronic obstructive pulmonary disease) COVID-19 Deep vein thrombosis 15 YEARS AGO S/P LEG SURGERY Degenerative disc disease Dysphagia HX ESOPHAGEAL STRETCHING Fall GERD (gastroesophageal reflux disease) History of pulmonary embolism HTN (hypertension) Hypertension Osteoarthritis PAF (paroxysmal atrial fibrillation) Prolapsed bladder Pulmonary nodule, right Rectal bleeding Senile degeneration of brain T12 burst fracture Surgical History History of cataract surgery RT/LEFT History of colonoscopy History of esophagogastroduodenoscopy (EGD) History of mastectomy LEFT (NO BP/LAB DRAWS) History of tonsillectomy History of tooth extraction History of total hysterectomy with bilateral salpingo-oophorectomy (BSO) History of total knee replacement LEFT/RT Family History Other Family history non-contributory Social History Smoking Status: Never smoker Second Hand Exposure: No; Hx Alcohol Use: No Hx Substance Use: No Preferred Language: South African Communication Ability: Effective Pro Shop Attendant Required: No Beliefs That Will Affect Care: Quaker marital status: / Current Living Situation: Personal Care Facility Current Living Situation Comment: [facility] How many Children do You have: 1 Feels Safe at Home: Yes Childhood Exposure to Second-Hand Smoke: Yes Dental Care, Regularly: Yes Assistive Devices: Walker Review of Systems A total of 10 systems reviewed and were otherwise negative Physical Exam Vital Signs Vital Signs - 24 hr 12/13/21 21:41 12/14/21 00:38 12/14/21 00:38 Temperature 36.9 C Temperature Source Temporal Artery Scan Pulse Rate 73 Pulse Rate [Apical] Pulse Rate from SpO2 Sensor Respiratory Rate 20 20 Respiratory Effort / Characteristics Short of Breath SOB on Exertion Respiratory Depth Blood Pressure 144/71 H Blood Pressure [Right Arm] Blood Pressure Mean 95 Blood Pressure Mean [Right Arm] Pulse Oximetry 97 100 Oxygen Delivery Method Room Air Room Air Room Air Sepsis Recent Fever Within 48 Hours No Sepsis New/Unexplained Change in Mental Status No Sepsis Action Taken by Nursing No Action Required Pulse Oximetry Post Tiitration 100 12/14/21 00:38 12/14/21 01:28 12/14/21 01:30 Temperature Temperature Source Pulse Rate 66 69 Pulse Rate [Apical] Pulse Rate from SpO2 Sensor 69 Respiratory Rate 20 18 21 Respiratory Effort / Characteristics Non-Labored Respiratory Depth Normal Blood Pressure Blood Pressure [Right Arm] 148/64 H Blood Pressure Mean Blood Pressure Mean [Right Arm] 92 Pulse Oximetry 100 92 92 Oxygen Delivery Method Room Air Sepsis Recent Fever Within 48 Hours Sepsis New/Unexplained Change in Mental Status Sepsis Action Taken by Nursing Pulse Oximetry Post Tiitration 12/14/21 00:46 Temperature Temperature Source Pulse Rate Pulse Rate [Apical] 68 Pulse Rate from SpO2 Sensor Respiratory Rate 22 Respiratory Effort / Characteristics Respiratory Depth Blood Pressure Blood Pressure [Right Arm] 141/69 H Blood Pressure Mean Blood Pressure Mean [Right Arm] 93 Pulse Oximetry 100 Oxygen Delivery Method Room Air Sepsis Recent Fever Within 48 Hours Sepsis New/Unexplained Change in Mental Status Sepsis Action Taken by Nursing Pulse Oximetry Post Tiitration VITALS: Vitals are noted on the nurse's note and reviewed by myself. Vital signs reviewed. GENERAL: Pleasant female coughing, in no acute distress, nondiaphoretic, well- developed well-nourished. SKIN: The skin was without rashes, erythema, edema, or bruising. There is no tenting of the skin. Capillary reflex less than 2 seconds. HEAD: Normocephalic atraumatic. EARS: External auditory canals clear, tympanic membranes pearly harris without erythema or effusion bilaterally. EYES: Pupils equal round and reactive to light and accommodation. Conjunctivae without injection, sclerae without icterus. Extraocular movements intact. NOSE: Patent, turbinates without inflammation or discharge. MOUTH: Mucous membranes moist. Pharynx without erythema or exudate. Uvula midline. Airway patent. Tongue does not deviate. NECK: Supple without nuchal rigidity. No lymphadenopathy. No thyromegaly. Cervical spine is nontender. No JVD. HEART: Regular rate and rhythm LUNGS: Mild diffuse end expiratory wheezes, rales or rhonchi. No retractions or accessory muscle use. ABDOMEN: Positive bowel sounds x 4. Normal tympanic percussion. Soft, nontender, without masses or organomegaly. Ortiz sign negative. No guarding or rebound tenderness. No CVA tenderness MUSCULOSKELETAL: No muscle atrophy, erythema, or edema noted. NEURO: Patient was alert and oriented to person place and time. Normal sensation to light and sharp touch. No focal neurological deficits. Course Administered Medications Discontinued Medications Albuterol (Albut/Ipratrop 3mg/0.5mg Neb 3 Ml Vial) 3 ml NEB NOW STA; Protocol Stop: 12/14/21 00:03 Last Admin: 12/14/21 00:39 Dose: 3 ml Documented By: HUSSEIN Albuterol (Albut/Ipratrop 3mg/0.5mg Neb 3 Ml Vial) 3 ml NEB NOW STA; Protocol Stop: 12/14/21 02:23 Last Admin: 12/14/21 02:30 Dose: 3 ml Documented By: HUSSEIN Piperacillin Sod/Tazobactam Sod (Zosyn) 4.5 gm in 120 mls @ 240 mls/hr IV NOW ONE Stop: 12/14/21 02:51 Last Infusion: 12/14/21 03:05 Dose: 0 mls/hr Documented By: Admin: 12/14/21 02:30 Dose: 240 mls/hr Documented By: HUSSEIN Ioversol (Optiray 320 500ml) 115 ml IV ONCE ONE Stop: 12/14/21 01:14 Last Admin: 12/14/21 01:15 Dose: 115 ml Documented By: [facility] Methylprednisolone (Methylprednisolone 125 Mg/2 Ml Vial) 125 mg IV NOW STA Stop: 12/14/21 00:03 Last Admin: 12/14/21 00:39 Dose: 125 mg Documented By: HUSSEIN Medical Decision Making Medical Records Attestation: I reviewed the patient's medical records. Home Medications Current Medication List: was personally reviewed by me Laboratory Data Attestation: I reviewed the patient's lab results. Result diagrams: 12/13/21 22:40 12/13/21 22:40 Lab Results 12/13/21 12/13/21 12/13/21 Range/Units 22:40 22:40 22:40 WBC 5.59 (4.8-10.8) K/ul RBC 3.56 L (3.93-5.22) M/uL Hgb 8.4 L (12.0-16.0) g/dl Hct 27.8 L (34.1-44.9) % MCV 78.1 L (80.0-100.0) fL MCH 23.6 L (25.0-34.0) pg MCHC 30.2 L (32.0-36.0) g/dL RDW Std Deviation 58.8 H (36.4-46.3) fL RDW Coeff of [place] 20.8 H (11.5-14.5) % Plt Count 368 (130-400) K/uL MPV 10.0 (9.4-12.3) fL Immature Gran % (Auto) 0.2 % Neut % (Auto) 70.8 % Lymph % (Auto) 14.5 % Ray % (Auto) 12.3 % Eos % (Auto) 1.3 % Baso % (Auto) 0.9 % Neut # (Auto) 3.96 (1.4-6.5) K/uL Lymph # (Auto) 0.81 L (1.2-3.4) K/uL Ray # (Auto) 0.69 (0.24-0.82) K/uL Eos # (Auto) 0.07 (0-0.50) K/uL Baso # (Auto) 0.05 (0-0.2) K/uL Immature Gran # (Auto) 0.01 (0.00-0.02) K/uL Polychromasia 1+ Hypochromasia Present Ovalocytes 1+ PT 10.9 (9.0-12.0) Seconds INR 1.0 (0.9-1.1) APTT 23.9 (21.0-31.0) Seconds PTT Ratio 0.9 Sodium 136 (136-145) mmol/L Potassium 3.6 (3.5-5.1) mmol/L Chloride 99 (98-107) mmol/L Carbon Dioxide 28 (21-32) mmol/L Anion Gap 9 (3-11) BUN 28 H (6-23) mg/dl Creatinine 1.29 H (0.6-1.2) mg/dl Est Cr Clr Drug Dosing Not Reportable Est GFR ( Amer) 42.5 ml/min Est GFR (Non-Af Amer) 36.7 ml/min BUN/Creatinine Ratio 21.7 H (10-20) Glucose 96 (70-99(Fasting)) mg/dl Calcium 8.8 (8.5-10.1) mg/dl Magnesium 1.9 (1.7-2.4) mg/dl Total Bilirubin 0.4 (0.2-1.0) mg/dl AST 26 (13-39) U/L ALT 32 (7-52) U/L Alkaline Phosphatase 96 (34-104) U/L Troponin I High Sens (0-14) pg/ml Total Protein 6.6 (6.0-8.3) gm/dl Albumin 3.9 (3.4-5.0) gm/dl Globulin 2.7 (2.5-4.0) gm/dl Albumin/Globulin Ratio 1.4 (0.9-2) SARS-CoV-2 (PCR) (Negative) Influenza Type A (PCR) (Neg) Influenza Type B (PCR) (Neg) RSV (RT-PCR) (Neg) 12/13/21 12/14/21 Range/Units 22:40 00:48 WBC (4.8-10.8) K/ul RBC (3.93-5.22) M/uL Hgb (12.0-16.0) g/dl Hct (34.1-44.9) % MCV (80.0-100.0) fL MCH (25.0-34.0) pg MCHC (32.0-36.0) g/dL RDW Std Deviation (36.4-46.3) fL RDW Coeff of [place] (11.5-14.5) % Plt Count (130-400) K/uL MPV (9.4-12.3) fL Immature Gran % (Auto) % Neut % (Auto) % Lymph % (Auto) % Ray % (Auto) % Eos % (Auto) % Baso % (Auto) % Neut # (Auto) (1.4-6.5) K/uL Lymph # (Auto) (1.2-3.4) K/uL Ray # (Auto) (0.24-0.82) K/uL Eos # (Auto) (0-0.50) K/uL Baso # (Auto) (0-0.2) K/uL Immature Gran # (Auto) (0.00-0.02) K/uL Polychromasia Hypochromasia Ovalocytes PT (9.0-12.0) Seconds INR (0.9-1.1) APTT (21.0-31.0) Seconds PTT Ratio Sodium (136-145) mmol/L Potassium (3.5-5.1) mmol/L Chloride (98-107) mmol/L Carbon Dioxide (21-32) mmol/L Anion Gap (3-11) BUN (6-23) mg/dl Creatinine (0.6-1.2) mg/dl Est Cr Clr Drug Dosing Est GFR ( Amer) ml/min Est GFR (Non-Af Amer) ml/min BUN/Creatinine Ratio (10-20) Glucose (70-99(Fasting)) mg/dl Calcium (8.5-10.1) mg/dl Magnesium (1.7-2.4) mg/dl Total Bilirubin (0.2-1.0) mg/dl AST (13-39) U/L ALT (7-52) U/L Alkaline Phosphatase (34-104) U/L Troponin I High Sens 13.3 (0-14) pg/ml Total Protein (6.0-8.3) gm/dl Albumin (3.4-5.0) gm/dl Globulin (2.5-4.0) gm/dl Albumin/Globulin Ratio (0.9-2) SARS-CoV-2 (PCR) NEGATIVE (Negative) Influenza Type A (PCR) Negative (Neg) Influenza Type B (PCR) Negative (Neg) RSV (RT-PCR) Negative (Neg) Imaging Data Attestation: I personally reviewed and interpreted this imaging study as follows: MDM Narrative Prior records/ancillary studies reviewed. Triage Nursing notes reviewed. Additional history obtained from the family. The patient's history was concerning for respiratory difficulties. Differential diagnosis: Etiologies such as infections, reactive airway disease, pneumonia, pneumothorax, COPD, CHF, cardiac ischemia, pulmonary embolism, musculoskeletal, gastrointestinal, as well as others were entertained. Physical examination: As above. ER treatment provided: An order was placed for continuous cardiac monitoring. The monitor shows a rate of 60-100 with a sinus rhythm. Nebulizer, Solu-Medrol On reassessment the patient felt better. Diagnostic interpretation by me: The electrocardiogram was ordered for dyspnea EKG: Poor baseline, normal sinus, normal nose, no acute ST-T wave changes, rate of 71. Impression normal sinus rhythm poor baseline interpreted by myself I think arrhythmia is unlikely. EKG shows normal sinus rhythm with no interval abnormalities such as QT prolongation or WPW. There are no findings to suggest Brugada syndrome. Cardiac monitoring in the emergency department reveals no tachycardic or bradycardic dysrhythmia. Hypertrophic cardiomyopathy was con sidered but there are no clear historical elements pointing toward this. EKG is not suggestive. The QRS voltage is not extremely large and there are no suggestive Q waves. The labs: stable anemia per chart review, negative troponin Imaging studies: CTA CHEST: Comparison CT chest 11/12/2021 Negative for PE Peribronchial cuffing compatible with bronchial inflammation Density in the right upper lobe may reflect a combination of dense consolidation and atelectasis. However underlying malignancy not excluded. Follow-up is recommended to ensure complete resolution. The process is grossly stable when compared with the prior study. Moderate left pleural effusion smaller in size when compared with the prior study. Small right pleural effusion is also decreased in size compared with p rior Dense mitral annular calcifications incidentally noted Radiologist: Rodríguez Valencia MD Consultation: A consultation was placed with the hospitalist. The case was discussed and diagnostics were reviewed. The patient was evaluated in the ER for further treatment. This appears to be consistent with COPD exacerbation With possible pneumonia. Patient was recently hospitalized so broad-spectrum was written for.Patient was still quite short of breath. Medicine is consulted. She will be evaluated for admission. By the evaluation outlined above emergent etiologies such as CHF, cardiac ischemia, pulmonary embolism, reactive airway disease, pneumothorax, musculoskeletal, serious bacterial infections, as well as others were deemed relatively unlikely. The pt informed about the findings as listed above. All questions were answered and pleased with the treatment. The chart was completed utilizing [employer] Speech voice recognition software. Grammatical errors, random word insertions, pronoun errors, and incomplete sentences are an occassional consequence of this system due to software limitations, ambient noise, and hardware issues. Any formal questions or concerns about the content, text, or information contained within the body of this dictation should be directly addressed to the physician kindergarten assistant for clarification. Impression & Plan Acute exacerbation of chronic obstructive pulmonary disease, Pneumonia Discharge Plan Visit Data Chief Complaint: Cough Stated Complaint: COUGHING,VOMITTING,BACK PAIN ED Provider: Esther Putnam ED Midlevel Provider: Bettye Dudley Discharge Problem: Acute exacerbation of chronic obstructive pulmonary disease, Pneumonia Patient Disposition: Admitted As Inpatient Condition: Good Forms Stand Alone Forms: [facility] [employer] Prescriptions Prescriptions: No Action aspirin 81 mg Tablet,Delayed Release (Dr/Ec) 81 mg PO QAM Stiolto Respimat 2.5-2.5 mcg/actuation Mist 1 puff INHALATION QAM montelukast 10 mg tablet 10 mg PO HS Rx Instructions: TAKE 1 TABLET BY MOUTH EVERYDAY AT BEDTIME donepezil 5 mg Tablet 5 mg PO BID lorazepam 0.5 mg Tablet 0.5 mg PO TID Rx Instructions: TAKES AT 0630, 1500 & 2000. docusate sodium [Colace] 100 mg Capsule 100 mg PO BID calcium carbonate 500 mg calcium (1,250 mg) Tablet,Chewable 500 mg PO BID Rx Instructions: TAKE PRIOR TO BREAKFAST AND DINNER amiodarone 200 mg tablet 200 mg PO QAM pantoprazole 40 mg tablet,delayed release (DR/EC) 40 mg PO BID metoprolol tartrate 25 mg tablet 12.5 mg PO BID acetaminophen [Tylenol] 325 mg Tablet 650 mg PO Q4H PRN (Reason: PAIN/FEVER) guaifenesin 200 mg Tablet 200 mg PO TID PRN (Reason: CHEST CONGESTION) ferrous sulfate 325 mg (65 mg iron) Tablet 325 mg PO DAILY epinephrine [EpiPen] 0.3 mg/0.3 mL Auto-Injector 0.3 mg IM DIRECTED PRN (Reason: Allergic Reaction) lidocaine 5 % adhesive patch,medicated 1 patch transdermal QAM Rx Instructions: ON 12 HOURS, OFF 12 HOURS. sertraline 100 mg tablet 200 mg PO QAM potassium chloride 10 mEq Tablet,Er Particles/Crystals 10 meq PO DAILY Qty: 30 0RF Referrals Referrals: [facility] [Primary Care Provider] -
[2021-12-14] MEDS ORDERED: OPTIRAY 320 500ml IV ONE (01:13)
[2021-12-14 01:47] LABS: Influenza A virus by PCR Negative (Neg); Influenza B virus by PCR Negative (Neg); RSV by PCR Negative (Neg); SARS CoV2 RNA(COVID-19)Cepheid NEGATIVE (Negative)
[2021-12-14] MEDS ORDERED: PIPERACILLIN/TAZOBACTAM 4.5 GM/120 ML BAG IV ONE (02:22)
[2021-12-14] MEDS ORDERED: NITROGLYCERIN SL 0.4 MG/TAB TAB SL PRN (05:37)
[2021-12-14] MEDS ORDERED: guaiFENesin/CODEINE 100MG/10MG 5ML UDC PO PRN (05:37)
[2021-12-14] MEDS ORDERED: LEVALBUTEROL HCL 1.25 MG/3 ML NEB NEB PRN (05:37)
[2021-12-14] MEDS ORDERED: POLYETHYLENE (MIRALAX) 17 GM PACK PO PRN (05:37)
[2021-12-14] MEDS ORDERED: ACETAMINOPHEN 325 MG TAB PO PRN (05:37)
[2021-12-14] MEDS ORDERED: EPINEPHrine ADULT AUTO-INJECT 0.3 MG SYR IM PRN (05:37)
--- NOTE | 2021-12-14 07:03 | History and Physical Report ---
DATE OF ADMISSION: 12/14/2021. HISTORY OF PRESENT ILLNESS: This 89-year-old female resides in [facility] with past medical history significant for left breast cancer, status post left radical mastectomy, radiation pneumonitis, bronchogenic carcinoma of right lung, allergic rhinitis, persistent asthma/, history of COPD, hypertension, non- rheumatic tricuspid valve insufficiency, deep phlebitis of the leg, primary osteoarthritis, lumbar spinal stenosis, polyneuropathy, Dementia, mixed incontinence, anxiety, Hx of PE,history of GERD, presents with cough. The patient is having cough and bringing up some phlegm and has some Sob.. Currently, resting comfortably. Somewhat sleepy, but easily arousable, but goes back to sleep. Denies any chest pain, denies any headache. No belly pain, no nausea, no vomiting. No runny nose, no sore throat. Appetite is okay. No difficulty swallowing. Ambulates with a walker. ALLERGIES: BEE VENOM. PAST SURGICAL HISTORY: Carpal tunnerl surgery on right side, Colonoscopy,, EGD, left mastectomy,Right knee arthroplasty, Lumbosacral spine shot, tonsillectomy, total hysterectomy with BSO. FAMILY HISTORY: Significant for mother had Alzheimer's disease. Sister has heart disorder. SOCIAL HISTORY: Currently residing at [facility]. No smoking, no alcohol, no drug use. MEDICATIONS: Tylenol 650mg po prn, amiodarone 200mg po daily, aspirin 81mg po daily, calcium carbonate 500mg po bid, Colace 100mg po bid,donepezil 5mg po bid,ferrous sulphate 325mg po daily,lidocaine patch daily,lorazepam 0.5mg po tid, metoprolol tartrate 12.5mg po bid,Protonix 40mg po bid,kcl 10meq po daily,Montelukast 10mg po daily, Zoloft 200mg po daily,stiolto Respimat 1 puff am REVIEW OF SYSTEMS: As per HPI. Rest of the review of systems is negative. PHYSICAL EXAMINATION: GENERAL: The patient is old and frail, somewhat sleepy, not in acute distress. VITAL SIGNS: Temperature 36.9, pulse 66, respiratory rate 14, blood pressure 120/65, oxygen 98% on room air. HEENT: Pupils equal, round and reactive to light. Oral mucosa moist. NECK: No JVD, no neck masses. CARDIOVASCULAR: S1 and S2 heard. Regular rate and rhythm. No murmur, no gallop. RESPIRATORY SYSTEM: Normal AP diameter. Diminished breath sounds bilaterally. No wheezing, no crackles. No accessory muscle use. ABDOMEN: Soft, bowel sounds present, nontender, no distention. CENTRAL NERVOUS SYSTEM: Alert and oriented. Slow to answer. Speech is clear. No facial droop. Obeys simple commands, answers simple questions. EXTREMITIES: No edema, no erythema. LABORATORY DATA: WBC 5.5, hemoglobin 8.4, hematocrit 27.8, platelets 368. PT 10.9, INR 1, APTT 23.9. Sodium 136, potassium 3.6, chloride 99, bicarbonate 28, BUN 28, creatinine 1.2, serum glucose 96, calcium 8.8, magnesium 1.9, total bilirubin 0.4, AST 26, ALT 32, alkaline phosphatase 96. SARS-CoV-2 PCR negative. Influenza A and B PCR negative. RSV PCR negative. IMAGING DATA: CT of the chest, preliminary report shows negative for PE, peribronchial cuffing compatible with bronchial inflammation, density in the right upper lobe, may represent combination of dense consolidation and atelectasis; however, underlying malignancy not excluded. Followup is recommended. Moderate left pleural effusion. EKG: Poor quality data. Normal sinus rhythm, rate of 71, possible left atrial enlargement, T- inversion in anterior leads?. ASSESSMENT AND PLAN: An 89-year-old female who is from [facility] presents with ongoing cough and shortness of breath. 1. Ongoing cough and shortness of breath, possible bronchitis. CT chest negative for PE, questionable right upper lobe infiltrate/bronhitis versus underlying malignancy. Empirical place on Zosyn, we will add doxycycline, monitor in the hospital. Monitor for response. 2. History of heart failure with preserved ejection fraction, seems to be stable, on metoprolol. Currently not on any diuretics. We will monitor for any volume overload.Recent admission patient was also on lasix , Aldactone and losartan. Need to double check if those meds have been stopped. 3. Anemia, chronic with hemoglobin in the 8 range. We will follow iron studies, vitamin B12, folate levels, stool Hemoccult study. 4 Hx oF Cancer.. History of left breast cancer, status post left mastectomy, history of lung cancer, status post radiation, history of radiation pneumonitis, with question of bladder lesions needs to followup with urology. 5. Depression: Continue sertraline. 6. Hypertension: On metoprolol. 7. Gastroesophageal reflux disease, on Protonix. 8. Chronic obstructive pulmonary disease. Continue home inhalers. 9. Deep venous thrombosis prophylaxis: We will place on heparin subcutaneous. DISPOSITION: Closely monitor in the med tele. PT/OT prior to discharge. Social service to help with discharge planning. As per discussion with the patient, the patient is level 1 full code. Job ID: [id number] [facility]
[2021-12-14 07:58] LABS: Hematocrit (blood only) 27.1 % (34.1-44.9); Hemoglobin 8.3 g/dl (12.0-16.0); Mean Corpuscular Hemoglobin 23.8 pg (25.0-34.0); Mean Corpuscular Hgb Conc 30.6 g/dL (32.0-36.0); Mean Corpuscular Volume 77.7 fL (80.0-100.0); Mean Platelet Volume 10.6 fL (9.4-12.3); Platelet Count 368 K/uL (130-400); RDW Coefficient of Variation 20.7 % (11.5-14.5); RDW Standard Deviation 57.2 fL (36.4-46.3); Red Blood Count 3.49 M/uL (3.93-5.22); White Blood Count 4.47 K/ul (4.8-10.8)
[2021-12-14] MEDS: ASPIRIN 81 MG ECTAB PO SCH (08:20)
[2021-12-14] MEDS: DOXYCYCLINE HYCLATE 100 MG CAP PO SCH ×2 (08:21→20:52)
[2021-12-14] MEDS: PANTOprazole 40 MG TAB PO SCH ×2 (08:21→20:54)
[2021-12-14] MEDS: guaiFENesin 200 MG TAB PO PRN (08:21)
[2021-12-14] MEDS: DOCUSATE SODIUM 100 MG CAP PO SCH ×2 (08:21→20:52)
[2021-12-14] MEDS: HEPARIN SOD 5,000 UNIT/0.5 ML VIAL SQ SCH ×2 (08:21→20:53)
[2021-12-14] MEDS: POTASSIUM CHLORIDE 10 MEQ TABCR PO SCH (08:22)
[2021-12-14] MEDS: DONEPEZIL HCL 5 MG TAB PO SCH ×2 (08:22→20:52)
[2021-12-14] MEDS: SERTRALINE HCL 100 MG TABLET PO SCH (08:22)
[2021-12-14] MEDS: FERROUS SULFATE 325 MG TAB PO SCH (08:22)
[2021-12-14] MEDS: METOPROLOL TARTRATE 25 MG TAB PO SCH ×2 (08:22→20:53)
[2021-12-14] MEDS: AMIODARONE 200 MG TAB PO SCH (08:23)
[2021-12-14] MEDS: CALCIUM CARBONATE 1250MG TAB PO SCH ×2 (08:23→20:51)
[2021-12-14 08:26] LABS: Anisocytosis Present; Basophils # (auto) 0.02 K/uL (0-0.2); Basophils % (auto) 0.4 %; Hypochromasia Present; Immature Granulocytes # (auto) 0.02 K/uL (0.00-0.02); Immature Granulocytes % (auto) 0.4 %; Iron 11 mcg/dl (35-150); Lymphocytes # (auto) 0.27 K/uL (1.2-3.4); Monocytes # (auto) 0.04 K/uL (0.24-0.82); Monocytes % (auto) 0.9 %; Neutrophils # (auto) 4.12 K/uL (1.4-6.5); Neutrophils % (auto) 92.3 %; Total Iron Binding Cap Calc 349 mcg/dl (250-450); Transferrin (FE) Percent Satur 3 % (15-50); Unsaturated Iron Binding Cap 338 mcg/dl (155-355)
[2021-12-14] MEDS: LIDOCAINE 5% 1 PATCH TD SCH (08:28)
[2021-12-14] MEDS: PIPERACILLIN/TAZOBACTAM 3.375 GM in DEXTROSE 5% 100 ML IV SCH ×3 (08:28→23:21)
[2021-12-14] MEDS: UMECLIDINIUM/VILANTEROL 62.5/25MCG 7 PUFFS/INHALER INH SCH (08:28)
[2021-12-14] MEDS: LORazepam 0.5 MG TAB PO SCH ×3 (08:33→20:53)
[2021-12-14 08:34] LABS: Calcium 8.7 mg/dl (8.5-10.1); Creatinine Clr Calc Pharmacy 31.9 ml/min; Est GFR (African American) 66.6 ml/min; Est GFR (Non-African American) 57.5 ml/min; Magnesium 1.9 mg/dl (1.7-2.4); Potassium 3.3 mmol/L (3.5-5.1)
--- NOTE | 2021-12-14 08:49 | CT Scan Report ---
CT angio chest PE protocol CLINICAL HISTORY: PE TECHNIQUE: Multidetector row helical CT of the chest was performed with angiographic protocol. Berry l and sagittal reformations were obtained. Coronal and sagittal MIPS were obtained from the axial caio a set and were submitted for review. Automated dose lowering techniques and/or adjustment according to patient size were utilized for this exam. CT DOSE: 276.09 mGy.cm Comparison: Comparison is made to CT chest 11/12/2021, CTA chest 05/03/2021, CT chest 05/16/2020 FINDINGS: Lungs and pleura: There is a small right and moderate left pleural effusion with associated atelectas is. Bronchial thickening is noted. Stable density in the right upper lobe. Heart and pericardium: Heart size is normal. No pericardial effusion. Vessels: No evidence of pulmonary embolism. Mediastinum and gemma: Subcentimeter lymph nodes are seen. Chest wall and lower neck: Unremarkable. Abdomen: Thickening of the left adrenal gland is seen. Bones: Compression deformities are seen in the vertebral bodies of T11 and T12 with cement arthroplas ty. Degenerative changes are seen. No evidence of acute fracture. Retropulsion of fragments of the T1 1 compression fracture is again noted. IMPRESSION: 1. No evidence of pulmonary embolism. 2. Bronchial wall thickening is concerning for infectious/inflammatory bronchitis. 3. Interval decrease in size of bilateral pleural effusions. 4. Redemonstration of density in the right upper lung which may represent scarring, it has gradually developed from 2020. An underlying mass is considered unlikely. ACT 112: Negative or not required by law. Electronically signed by: Rodríguez Villalta M.D. 12/14/2021 8:47 AM
--- NOTE | 2021-12-14 09:15 | XRay Report ---
XR chest 1V portable HISTORY: 89 years-old Female SOB acute shortness of breath COMPARISON: CTA chest of same day TECHNIQUE: AP view of the chest FINDINGS: Cardiac silhouette is enlarged. Mitral annular calcifications. Atherosclerosis of the aorta. And smal l right with small to moderate left pleural effusions. Mild bibasilar opacities. Linear consolidative density within the right lung apex redemonstrated. Degenerative changes of the shoulders and spine i nclude severe osteoarthritis with chronic remodeling of the right glenohumeral joint. Lower thoracic compression deformities with kyphoplasty redemonstrated. IMPRESSION: 1. Cardiomegaly without overt pulmonary edema. 2. Layering pleural effusions with bibasilar opacities suggestive of atelectasis. 3. Chronic linear consolidation of the right lung apex. 4. Please refer to the CTA chest study of same day for additional findings. ACT 112: Negative or not required by law. The above report was generated using voice recognition software. It may contain grammatical, syntax o r spelling errors. Electronically signed by: Tony Zaragoza M.D. 12/14/2021 9:14 AM
--- NOTE | 2021-12-14 14:28 | Communication Note ---
Date of Service: December 14, 2021 89-year-old female with significant past medical history was admitted with cough and due to acute bronchitis without any evidence of pneumonia and/or PE. Patient remains hemodynamically stable. full progress note will be done tomorrow. Dr Deedee Pretty
--- NOTE | 2021-12-14 14:31 | Electrocardiogram Report ---
Test Reason : Blood Pressure : / mmHG Vent. Rate : 071 BPM Atrial Rate : 071 BPM P-R Int : 158 ms QRS Dur : 082 ms QT Int : 446 ms P-R-T Axes : 090 074 056 degrees QTc Int : 484 ms Poor data quality, interpretation may be adversely affected Normal sinus rhythm Left atrial enlargement Borderline ECG When compared with ECG of 30-NOV-2021 00:26, No significant change Confirmed by Nathanael Wright ([id number]) on 12/14/2021 2:31:41 PM Referred By: [facility] Confirmed By:Nathanael Wright
[2021-12-14] MEDS: MONTELUKAST SODIUM 10 MG TABLET PO SCH (20:54)
[2021-12-15 06:10] LABS: Basophils # (auto) 0.04 K/uL (0-0.2); Basophils % (auto) 0.8 %; Eosinophils # (auto) 0.06 K/uL (0-0.50); Eosinophils % (auto) 1.2 %; Hematocrit (blood only) 24.8 % (34.1-44.9); Hemoglobin 7.6 g/dl (12.0-16.0); Immature Granulocytes # (auto) 0.02 K/uL (0.00-0.02); Immature Granulocytes % (auto) 0.4 %; Lymphocytes # (auto) 1.01 K/uL (1.2-3.4); Lymphocytes % (auto) 20.9 %; Mean Corpuscular Hemoglobin 23.2 pg (25.0-34.0); Mean Corpuscular Hgb Conc 30.6 g/dL (32.0-36.0); Mean Corpuscular Volume 75.6 fL (80.0-100.0); Mean Platelet Volume 10.2 fL (9.4-12.3); Monocytes % (auto) 12.4 %; Neutrophils # (auto) 3.11 K/uL (1.4-6.5); Neutrophils % (auto) 64.3 %; Platelet Count 323 K/uL (130-400); RDW Coefficient of Variation 20.9 % (11.5-14.5); RDW Standard Deviation 56.5 fL (36.4-46.3); Red Blood Count 3.28 M/uL (3.93-5.22); White Blood Count 4.84 K/ul (4.8-10.8)
[2021-12-15 06:46] LABS: Anisocytosis Present; Hypochromasia Present; Microcytosis Present
[2021-12-15 06:48] LABS: BUN Creatinine Ratio 32.9 (10-20); Calcium 8.4 mg/dl (8.5-10.1); Creatinine Clr Calc Pharmacy 36.1 ml/min; Est GFR (African American) 76.9 ml/min; Est GFR (Non-African American) 66.4 ml/min; Potassium 3.4 mmol/L (3.5-5.1)
[2021-12-15] MEDS: LORazepam 0.5 MG TAB PO SCH ×3 (08:02→20:56)
[2021-12-15] MEDS: PIPERACILLIN/TAZOBACTAM 3.375 GM in DEXTROSE 5% 100 ML IV SCH ×3 (08:02→23:02)
[2021-12-15] MEDS: LIDOCAINE 5% 1 PATCH TD SCH (08:03)
[2021-12-15] MEDS: AMIODARONE 200 MG TAB PO SCH (08:04)
[2021-12-15] MEDS: POTASSIUM CHLORIDE 10 MEQ TABCR PO SCH (08:04)
[2021-12-15] MEDS: guaiFENesin 200 MG TAB PO PRN (08:04)
[2021-12-15] MEDS: SERTRALINE HCL 100 MG TABLET PO SCH (08:05)
[2021-12-15] MEDS: PANTOprazole 40 MG TAB PO SCH ×2 (08:05→20:50)
[2021-12-15] MEDS: METOPROLOL TARTRATE 25 MG TAB PO SCH ×2 (08:05→20:51)
[2021-12-15] MEDS: FERROUS SULFATE 325 MG TAB PO SCH ×2 (08:05→20:54)
[2021-12-15] MEDS: ASPIRIN 81 MG ECTAB PO SCH (08:05)
[2021-12-15] MEDS: HEPARIN SOD 5,000 UNIT/0.5 ML VIAL SQ SCH ×2 (08:06→20:52)
[2021-12-15] MEDS: UMECLIDINIUM/VILANTEROL 62.5/25MCG 7 PUFFS/INHALER INH SCH (08:06)
[2021-12-15] MEDS: CALCIUM CARBONATE 1250MG TAB PO SCH ×2 (08:07→20:53)
[2021-12-15] MEDS: DONEPEZIL HCL 5 MG TAB PO SCH ×2 (08:07→20:51)
[2021-12-15] MEDS: DOCUSATE SODIUM 100 MG CAP PO SCH ×2 (08:07→20:53)
[2021-12-15] MEDS: DOXYCYCLINE HYCLATE 100 MG CAP PO SCH ×2 (08:07→20:51)
[2021-12-15] MEDS ORDERED: POTASSIUM CHLORIDE CRTAB 20 MEQ TABCR PO STA (09:31)
[2021-12-15] MEDS ORDERED: FUROSEMIDE 20 MG TAB PO ONE (09:36)
[2021-12-15] MEDS: SODIUM CHLOR 7% 4 ML NEB NEB SCH ×2 (12:44→20:10)
[2021-12-15] MEDS: FLUTICASONE PROPIONATE NA SPR 16 GM BTL SCH (13:14)
--- NOTE | 2021-12-15 17:15 | Hospitalist Progress Note ---
Date of Service December 15, 2021 Assessment & Plan (1) Acute bronchitis: Plan: Per admitting service notes with addendum: ASSESSMENT AND PLAN: An 89-year-old female who is from [facility] presents with ongoing cough and shortness of breath. 1. Acute bronchitis CT chest negative for PE, questionable right upper lobe infiltrate/bronchitis versus underlying malignancy. Improving clinically Sputum culture ordered Hypertonic saline nebs ordered Continue Zosyn plus doxycycline 2. History of heart failure with preserved ejection fraction, seems to be stable, on metoprolol. Currently not on any diuretics. We will monitor for any volume overload.Recent admission patient was also on lasix , Aldactone and losartan. Need to double check if those meds have been stopped. 12/15 Lasix 20 mg p.o. given today 3. Anemia, chronic with hemoglobin in the 8 range. We will follow iron studies, vitamin B12, folate levels, stool Hemoccult study. 12/15 Iron level 11 Ferrous sulfate increased to 325 mg p.o. twice daily 4 Hx oF Cancer.. History of left breast cancer, status post left mastectomy, history of lung cancer, status post radiation, history of radiation pneumonitis, with question of bladder lesions needs to followup with urology. 5. Depression: Continue sertraline. 6. Hypertension: On metoprolol. 7. Gastroesophageal reflux disease, on Protonix. 8. Chronic obstructive pulmonary disease. Continue home inhalers. 9. Deep venous thrombosis prophylaxis: We will place on heparin subcutaneous. Disposition PT and OT evaluation pending Anticipate return to personal detention when medically stable Admission and Anticipated Discharge Date Admission Date: December 14, 2021 Subjective Follow-up for acute bronchitis, etc. Seen resting in bed, comfortable, not in distress, in good spirits On room air States that she continues to feel improved Breathing is improving, less cough, able to expectorate yellow sputum No chest pain, fevers or chills No other symptoms Review of Systems Review of Systems: all noted and negative except for above Physical Exam Physical Exam: General- oriented x2 , not in distress, speaks in sentences with no effort or accessory muscle use Eyes- anicteric Neck- no JVD Lungs- clear breath sounds bilaterally, no rales/wheezes Heart- normal rate, regular rhythm; no murmurs Abdomen- normal bowel sounds, nondistended, soft, nontender Extremities- no pretibial edema, no calf tenderness Neuro- alert, oriented x 2; no gross focal neurologic deficits Skin- warm & dry Results & Data Results & Data ([facility]) Vital Signs (Past 12 Hours) Vital Signs Temp Pulse Pulse Resp BP Pulse Ox O2 Del Method 12/15/21 16:48 36.5 C 65 17 135/70 95 Room Air 12/15/21 15:07 64 12/15/21 12:44 63 14 98 Nasal Cannula 12/15/21 11:48 36.5 C 63 18 135/70 97 Room Air 12/15/21 10:43 Room Air 12/15/21 08:52 36.5 C 80 18 169/80 H 93 Room Air 12/15/21 07:13 65 FiO2 12/15/21 16:48 12/15/21 15:07 12/15/21 12:44 21 12/15/21 11:48 12/15/21 10:43 12/15/21 08:52 12/15/21 07:13 all noted and reviewed including below
[2021-12-15] MEDS ORDERED: ALBUTEROL 0.083% NEBU SOLN 3 ML VIAL ONE (19:23)
[2021-12-15] MEDS: MONTELUKAST SODIUM 10 MG TABLET PO SCH (20:51)
[2021-12-16] MEDS: SODIUM CHLOR 7% 4 ML NEB NEB SCH (07:16)
[2021-12-16 07:21] VITALS: O2SAT 96
[2021-12-16] MEDS: METOPROLOL TARTRATE 25 MG TAB PO SCH (07:32)
[2021-12-16] MEDS: CALCIUM CARBONATE 1250MG TAB PO SCH (07:33)
[2021-12-16] MEDS: FERROUS SULFATE 325 MG TAB PO SCH (07:34)
[2021-12-16] MEDS: DOCUSATE SODIUM 100 MG CAP PO SCH (07:34)
[2021-12-16] MEDS: DOXYCYCLINE HYCLATE 100 MG CAP PO SCH (07:34)
[2021-12-16] MEDS: DONEPEZIL HCL 5 MG TAB PO SCH (07:34)
[2021-12-16] MEDS: AMIODARONE 200 MG TAB PO SCH (07:34)
[2021-12-16] MEDS: PANTOprazole 40 MG TAB PO SCH (07:34)
[2021-12-16] MEDS: SERTRALINE HCL 100 MG TABLET PO SCH (07:34)
[2021-12-16] MEDS: POTASSIUM CHLORIDE 10 MEQ TABCR PO SCH (07:34)
[2021-12-16] MEDS: ASPIRIN 81 MG ECTAB PO SCH (07:34)
[2021-12-16] MEDS: FLUTICASONE PROPIONATE NA SPR 16 GM BTL SCH (07:35)
[2021-12-16] MEDS: HEPARIN SOD 5,000 UNIT/0.5 ML VIAL SQ SCH (07:36)
[2021-12-16] MEDS: UMECLIDINIUM/VILANTEROL 62.5/25MCG 7 PUFFS/INHALER INH SCH (07:36)
[2021-12-16] MEDS: LIDOCAINE 5% 1 PATCH TD SCH (07:37)
[2021-12-16] MEDS: LORazepam 0.5 MG TAB PO SCH (07:45)
[2021-12-16] MEDS: PIPERACILLIN/TAZOBACTAM 3.375 GM in DEXTROSE 5% 100 ML IV SCH (07:51)
[2021-12-16 08:09] VITALS: PULSE 79; TEMP 98.1
[2021-12-16 08:57] LABS: Basophils # (auto) 0.05 K/uL (0-0.2); Basophils % (auto) 0.9 %; Eosinophils % (auto) 1.9 %; Hematocrit (blood only) 29.8 % (34.1-44.9); Hemoglobin 9.1 g/dl (12.0-16.0); Immature Granulocytes # (auto) 0.02 K/uL (0.00-0.02); Immature Granulocytes % (auto) 0.4 %; Lymphocytes # (auto) 0.53 K/uL (1.2-3.4); Lymphocytes % (auto) 10.1 %; Mean Corpuscular Hemoglobin 23.7 pg (25.0-34.0); Mean Corpuscular Hgb Conc 30.5 g/dL (32.0-36.0); Mean Corpuscular Volume 77.6 fL (80.0-100.0); Mean Platelet Volume 9.8 fL (9.4-12.3); Monocytes # (auto) 0.33 K/uL (0.24-0.82); Monocytes % (auto) 6.3 %; Neutrophils # (auto) 4.24 K/uL (1.4-6.5); Neutrophils % (auto) 80.4 %; Platelet Count 345 K/uL (130-400); RDW Coefficient of Variation 21.3 % (11.5-14.5); RDW Standard Deviation 58.5 fL (36.4-46.3); Red Blood Count 3.84 M/uL (3.93-5.22); White Blood Count 5.27 K/ul (4.8-10.8)
[2021-12-16 09:36] LABS: BUN Creatinine Ratio 19.4 (10-20); Calcium 9.1 mg/dl (8.5-10.1); Creatinine Clr Calc Pharmacy 30.7 ml/min; Est GFR (African American) 63.2 ml/min; Est GFR (Non-African American) 54.5 ml/min; Potassium 4.2 mmol/L (3.5-5.1)
[2021-12-16 10:30] VITALS: BP 162/77
--- NOTE | 2021-12-16 11:17 | Hospitalist Progress Note ---
Date of Service December 16, 2021 Assessment & Plan (1) Acute bronchitis: Plan: Per admitting service notes with addendum: ASSESSMENT AND PLAN: An 89-year-old female who is from [facility] presents with ongoing cough and shortness of breath. 1. Acute bronchitis, possible Right upper lobe Bronchitis CT chest negative for PE, questionable right upper lobe infiltrate/bronchitis versus underlying malignancy. Improving clinically Sputum culture ordered- pending Hypertonic saline nebs ordered given Zosyn plus doxycycline continue PO Augmentin + Doxycycline x 5 more days Mucinex 600mg BID PRN Levalbuterol repeat CT chest to ff up RUL infiltrate 2. History of heart failure with preserved ejection fraction, stable euvolemic continue Lasix 20mg po daily 3. Anemia, chronic with hemoglobin in the 8 range. Iron level 11 Ferrous sulfate increased to 325 mg p.o. twice daily monitor as outpatient 4 Hx oF Cancer.. History of left breast cancer, status post left mastectomy, history of lung cancer, status post radiation, history of radiation pneumonitis, with question of bladder lesions needs to followup with urology. 5. Depression: Continue sertraline. 6. Hypertension: On metoprolol. 7. Gastroesophageal reflux disease, on Protonix. 8. Chronic obstructive pulmonary disease. Continue home inhalers. 9. Deep venous thrombosis prophylaxis:heparin subcutaneous. Disposition d/c to [facility] ff up with PCP in 1 week Admission and Anticipated Discharge Date Admission Date: December 14, 2021 Subjective ff up for acute bronchitis, etc seen resting in bed, comfortable in good spirits, smiling states she feels better overall cough is less, no shortness of breath, chest pain appetite is good no other symptoms states she is agreeable for discharge today Review of Systems Review of Systems: all noted and negative except for above Physical Exam Physical Exam: General- oriented x 3, not in distress, speaks in sentences with no effort or accessory muscle use Eyes- anicteric Neck- no JVD Lungs- very mild rales at the right base no wheezing Heart- normal rate, regular rhythm; no murmurs Abdomen- normal bowel sounds, nondistended, soft, nontender Extremities- no pretibial edema, no calf tenderness Neuro- alert, oriented x 3; no gross focal neurologic deficits Skin- warm & dry Results & Data Results & Data ([facility]) Vital Signs (Past 12 Hours) Vital Signs Temp Pulse Pulse Resp BP Pulse Ox O2 Del Method 12/16/21 10:29 162/77 H 12/16/21 08:59 Room Air 12/16/21 08:07 36.7 C 79 18 179/90 H 96 Room Air 12/16/21 07:16 74 96 Room Air 12/16/21 07:11 65 12/16/21 04:00 36.3 C L 68 18 159/75 H 94 Room Air all noted and reviewed including below
--- NOTE | 2021-12-16 11:43 | Discharge Summary ---
Discharge Summary Date of Service December 16, 2021 Notes For Next Care Provider repeat CT chest to follow up Right upper lobe infiltrates vs Malignancy Medication Changes From Visit Augmentin and Doxycycline x 5 more days Mucinex x 5 days Levalbuterol PRN Ferrous Sulfate incresaed to BID Admission HPI Per Admitting Provider HISTORY OF PRESENT ILLNESS: This 89-year-old female resides in [facility] with past medical history significant for left breast cancer, status post left radical mastectomy, radiation pneumonitis, bronchogenic carcinoma of right lung, allergic rhinitis, persistent asthma/, history of COPD, hypertension, non- rheumatic tricuspid valve insufficiency, deep phlebitis of the leg, primary osteoarthritis, lumbar spinal stenosis, polyneuropathy, Dementia, mixed incontinence, anxiety, Hx of PE,history of GERD, presents with cough. The patient is having cough and bringing up some phlegm and has some Sob.. Currently, resting comfortably. Somewhat sleepy, but easily arousable, but goes back to sleep. Denies any chest pain, denies any headache. No belly pain, no nausea, no vomiting. No runny nose, no sore throat. Appetite is okay. No difficulty swallowing. Ambulates with a walker. Admission Exam Per Admitting Provider GENERAL: The patient is old and frail, somewhat sleepy, not in acute distress. VITAL SIGNS: Temperature 36.9, pulse 66, respiratory rate 14, blood pressure 120/65, oxygen 98% on room air. HEENT: Pupils equal, round and reactive to light. Oral mucosa moist. NECK: No JVD, no neck masses. CARDIOVASCULAR: S1 and S2 heard. Regular rate and rhythm. No murmur, no gallop. RESPIRATORY SYSTEM: Normal AP diameter. Diminished breath sounds bilaterally. No wheezing, no crackles. No accessory muscle use. ABDOMEN: Soft, bowel sounds present, nontender, no distention. CENTRAL NERVOUS SYSTEM: Alert and oriented. Slow to answer. Speech is clear. No facial droop. Obeys simple commands, answers simple questions. EXTREMITIES: No edema, no erythema. Principal Dx & Hospital Course #1 = Principal Diagnosis (1) Acute bronchitis: Per admitting service notes with addendum: ASSESSMENT AND PLAN: An 89-year-old female who is from [facility] presents with ongoing cough and shortness of breath. 1. Acute bronchitis, possible Right upper lobe Infiltrate CT chest negative for PE, questionable right upper lobe infiltrate/bronchitis versus underlying malignancy. Improving clinically Sputum culture ordered- pending Hypertonic saline nebs ordered given Zosyn plus doxycycline continue PO Augmentin + Doxycycline x 5 more days Mucinex 600mg BID PRN Levalbuterol repeat CT chest to ff up RUL infiltrate 2. History of heart failure with preserved ejection fraction, stable euvolemic continue Lasix 20mg po daily 3. Anemia, chronic with hemoglobin in the 8 range. Iron level 11 Ferrous sulfate increased to 325 mg p.o. twice daily monitor as outpatient 4 Hx oF Cancer.. History of left breast cancer, status post left mastectomy, history of lung cancer, status post radiation, history of radiation pneumonitis, with question of bladder lesions needs to followup with urology. 5. Depression: Continue sertraline. 6. Hypertension: On metoprolol. 7. Gastroesophageal reflux disease, on Protonix. 8. Chronic obstructive pulmonary disease. Continue home inhalers. 9. Deep venous thrombosis prophylaxis:heparin subcutaneous. Disposition d/c to [facility] ff up with PCP in 1 week Discharge Exam General- oriented x 3, not in distress, speaks in sentences with no effort or accessory muscle use Eyes- anicteric Neck- no JVD Lungs- very mild rales at the right base no wheezing Heart- normal rate, regular rhythm; no murmurs Abdomen- normal bowel sounds, nondistended, soft, nontender Extremities- no pretibial edema, no calf tenderness Neuro- alert, oriented x 3; no gross focal neurologic deficits Skin- warm & dry Updated Medication List Medication Instructions Recorded Confirmed Type aspirin 81 mg tablet,delayed 81 mg PO QAM 04/30/21 12/14/21 History release montelukast 10 mg tablet 10 mg PO HS 04/30/21 12/14/21 History tiotropium 2.5 mcg-olodaterol 2.5 1 puff inhalation QAM 04/30/21 12/14/21 History mcg/actuation mist for inhalation (Stiolto Respimat) calcium carbonate 500 mg calcium 500 mg PO BID 06/24/21 12/14/21 History (1,250 mg) chewable tablet docusate sodium 100 mg capsule 100 mg PO BID 06/24/21 12/14/21 History (Colace) donepezil 5 mg tablet 5 mg PO BID 06/24/21 12/14/21 History lorazepam 0.5 mg tablet 0.5 mg PO TID 06/24/21 12/14/21 History sertraline 100 mg tablet 200 mg PO QAM 07/06/21 12/14/21 History potassium chloride 10 mEq 10 meq PO DAILY #30 tabs 07/09/21 12/14/21 Rx tablet,extended release(part/cryst) amiodarone 200 mg tablet 200 mg PO QAM 10/02/21 12/14/21 History metoprolol tartrate 25 mg tablet 12.5 mg PO BID 10/02/21 12/14/21 History pantoprazole 40 mg tablet,delayed 40 mg PO BID 10/02/21 12/14/21 History release acetaminophen 325 mg tablet 650 mg PO Q4H PRN PAIN/FEVER 12/14/21 12/14/21 History (Tylenol) epinephrine 0.3 mg/0.3 mL 0.3 mg IM DIRECTED PRN Allergic 12/14/21 12/14/21 History injection, auto-injector (EpiPen) Reaction guaifenesin 200 mg tablet 200 mg PO TID PRN CHEST CONGESTION 12/14/21 12/14/21 History lidocaine 5 % topical patch 1 patch transdermal QAM 12/14/21 12/14/21 History amoxicillin 875 mg-potassium 1 tab PO BID 5 days #10 tabs 12/16/21 Rx clavulanate 125 mg tablet doxycycline hyclate 100 mg capsule 100 mg PO BID 5 days #10 caps 12/16/21 Rx ferrous sulfate 325 mg (65 mg 325 mg PO BID 30 days #60 tabs 12/16/21 12/14/21 Rx iron) tablet furosemide 20 mg tablet 20 mg PO DAILY 12/16/21 12/16/21 History guaifenesin 600 mg tablet, 600 mg PO BID PRN cough 5 days #10 12/16/21 Rx extended release 12 hr (Mucinex) tabs levalbuterol HCl 1.25 mg/3 mL 1.25 mg (3 mL) NEB Q4H PRN 12/16/21 Rx solution for nebulization shortness of breath or wheezing #36 mL Hospital Stay Data Consultations 12/14/21 02:48 ED Decision to Admit Stat Diagnostic Imagining Performed Chest X-Ray 12/13/21 21:46 XR chest 1V portable HISTORY: 89 years-old Female SOB acute shortness of breath COMPARISON: CTA chest of same day TECHNIQUE: AP view of the chest FINDINGS: Cardiac silhouette is enlarged. Mitral annular calcifications. Atherosclerosis of the aorta. And small right with small to moderate left pleural effusions. Mild bibasilar opacities. Linear consolidative density within the right lung apex redemonstrated. Degenerative changes of the shoulders and spine include sev ere osteoarthritis with chronic remodeling of the right glenohumeral joint. Lower thoracic compression deformities with kyphoplasty redemonstrated. IMPRESSION: 1. Cardiomegaly without overt pulmonary edema. 2. Layering pleural effusions with bibasilar opacities suggestive of atelectasis. 3. Chronic linear consolidation of the right lung apex. 4. Please refer to the CTA chest study of same day for additional findings. ACT 112: Negative or not required by law. The above report was generated using voice recognition software. It may contain grammatical, syntax or spelling errors. Electronically signed by: Tony aZragoza M.D. 12/14/2021 9:14 AM Chest CTA 12/13/21 23:50 CT angio chest PE protocol CLINICAL HISTORY: PE TECHNIQUE: Multidetector row helical CT of the chest was performed with angiographic protocol. Coronal and sagittal reformations were obtained. Coronal and sagittal MIPS were obtained from the axial data set and were submitted for review. Automated dose lowering techniques and/or adjustment according to patient size were utilized for this exam. CT DOSE: 276.09 mGy.cm Comparison: Comparison is made to CT chest 11/12/2021, CTA chest 05/03/2021, CT chest 05/16/2020 FINDINGS: Lungs and pleura: There is a small right and moderate left pleural effusion with associated atelectasis. Bronchial thickening is noted. Stable density in the right upper lobe. Heart and pericardium: Heart size is normal. No pericardial effusion. Vessels: No evidence of pulmonary embolism. Mediastinum and gemma: Subcentimeter lymph nodes are seen. Chest wall and lower neck: Unremarkable. Abdomen: Thickening of the left adrenal gland is seen. Bones: Compression deformities are seen in the vertebral bodies of T11 and T12 with cement arthroplasty. Degenerative changes are seen. No evidence of acute fracture. Retropulsion of fragments of the T11 compression fracture is again noted. IMPRESSION: 1. No evidence of pulmonary embolism. 2. Bronchial wall thickening is concerning for infectious/inflammatory bronchitis. 3. Interval decrease in size of bilateral pleural effusions. 4. Redemonstration of density in the right upper lung which may represent scarring, it has gradually developed from 2020. An underlying mass is considered unlikely. ACT 112: Negative or not required by law. Electronically signed by: Rodríguez Villalta M.D. 12/14/2021 8:47 AM Pending Results Patient Have Any Pending Studies at Discharge: Yes Discharge Instructions Given to Patient (Per Discharging Provider) PLEASE REFER TO YOUR NEW MEDICATION LIST AND FOLLOW INSTRUCTIONS CAREFULLY. YOUR NEW MEDICATIONS INCLUDE: Augmentin-antibiotic for bronchitis Doxycycline-antibiotic for bronchitis Mucinex-for cough Please take a probiotic daily x2 weeks. Please make sure you are adequately well-hydrated daily. PLEASE CALL YOUR PRIMARY CARE PHYSICIAN OR RETURN TO THE ER IF WITH WORSENING OF SYMPTOMS, INCLUDING Shortness of breath, cough, fevers or chills, wheezing, chest pain, etc. FOLLOW UP WITH PRIMARY CARE PHYSICIAN OUTLINED ABOVE. Total Time Total Time Spent Total Time Spent (In Minutes): >30 minutes
[2021-12-16] MEDS ORDERED: FUROSEMIDE 20 MG TAB PO SCH (11:45)
== END 2021-12-16 12:15 | disposition home or self-care (01) ==
LOC: ED 21:37 → INTOOBSV 12-14 03:36 → SUATTDRO 12-14 03:36 → 2N 12-14 03:36

== ENCOUNTER 2022-01-12 08:55 | Inpatient (IN) ==
--- NOTE | 2022-01-12 09:27 | Emergency Department Note ---
Impression & Plan Hypoxia, SOB (shortness of breath), RSV infection, Pneumonia, CHF (congestive heart failure) ED Provider Note INFORMANT: Patient ED PROVIDER(S): Kee Benavidez MD CHIEF COMPLAINT: Shortness of breath PLAN: Disposition: Admitted Condition: Guarded Outpatient prescription management: none Referral: None MEDICAL DECISION MAKING: Patient presented because of difficulty breathing. She was hypoxic for EMS. She did very well with a neb treatment but did require a second 1. Chest x-ray revealed findings concerning for CHF as well as for an infiltrate. She had blood cultures performed and was given IV cefepime. The patient was also treated with IV Lasix and Nitropaste. She had an elevated BNP and mild elevation of her troponin. No acute findings were noted on her ECG. Patient CBC was unremarkable chemistry panel did reveal a mild elevation of CO2. Given the x-ray that had concerns for pneumonia as well as CHF with subsequent hypoxia further management in the hospital was felt to be appropriate. [facility] Patient was evaluated in the ER and admitted for further management. Triage Nursing notes reviewed and agree them. Vital Signs: reviewed and remarkable for hypertension and oxygen requirement Differential diagnosis: Viral syndrome, reactive airway disease, pneumonia, pneumothorax, COPD, CHF, infections, cardiac ischemia, pulmonary embolism, musculoskeletal, gastrointestinal, as well as other pathologies. Diagnostics interpreted by me: ECG: Twelve-lead ECG reveals a normal sinus rhythm at 77 bpm. Left atrial enlargement. Prolonged QT. No ST elevation or depression. Cardiac Monitoring: Cardiac monitoring ordered by me: The patient was placed on continuous cardiac monitoring and observed. It revealed a normal sinus rhythm at 78 beats per minute without ectopy or evidence of dysrhythmia. Imaging studies: Chest x-ray as noted below HPI: The patient is a 89year old female who presents to the Emergency Room with complaints of shortness of breath. This started acutely this morning and is currently somewhat improved. Facility reported her oxygen was low at 77% and EMS noted 88%. The patient also notes the following associated symptoms, productive cough that worsened over the last several days, weakness. The patient has been given a nebulizer treatment by EMS for relieving factors. Current pain is rated as 0/10. Patient had symptoms develop and was tested around 4 days ago for RSV and this was positive. Patient was admitted last month to this facility and treated for pneumonia. She stated she did get better after that visit. Pt denies LOC, headache, fevers, chills, diaphoresis, visual changes, neck pain, chest pain, nausea, vomiting, abdominal pain, back pain, melena, hematochezia, urinary symptoms, numbness, lymphadenopathy, rash, or other complaints. ROS: See above HPI for pertinent positives & negatives. A total of 10 systems reviewed and were otherwise negative. PAST MEDICAL HISTORY:See Below , pneumonia PAST SURGICAL HISTORY:See Below, FAMILY HISTORY:See Below SOCIAL HISTORY:See Below, retired HOME MEDICATIONS:See Below ALLERGIES:See Below VITALS:See Below PHYSICAL EXAMINATION: GENERAL: Awake, alert, mildly dyspneic-appearing, in no distress HENT: Normocephalic, atraumatic. Oropharynx unremarkable. EYES: Normal conjunctiva. Sclera non-icteric. NECK: Inspection normal. Non-tender. Supple. No nuchal rigidity. FROM. No masses. RESPIRATORY: Coarse rhonchi mainly on the right. No wheezes. No rales. Mildly increased respiratory effort. CARDIAC: Normal rate. Normal rhythm. No murmurs. No rubs. Extremities warm and well perfused. Pulses equal. No JVD. GI: Soft, non-distended. No tenderness to palpation. No rebound or guarding. No masses. RECTAL: Deferred. MUSCULOSKELETAL: Atraumatic. Chest examination reveals no tenderness. The back is symmetrical on inspection without obvious abnormality. There is no CVA t enderness to palpation. No joint edema. LOWER EXTREMITIES: Calves are equal size bilaterally and non-tender. No edema. No discoloration. NEURO: Normal sensorium. No sensory or motor deficits noted. SKIN: No rash or jaundice noted. CRITICAL CARE: I have personally spent greater than 35 minutes of critical care time in the direct management of this patient. This includes bedside care, interpretation of diagnostic studies, and testing, discussion with consultants, patient, and family members, and other required patient management activities. These minutes are in excess of all separately billable procedures. Kee Benavidez MD Past Med/Surg History Medical History Abnormal CT of the chest Acute on chronic heart failure with preserved ejection fraction Anemia of chronic disease Anxiety Anxiety Asthma USING RESCUE INHALER FREQUENTLY/DAILY Asthma-COPD overlap syndrome Cancer BREAST CANCER-LEFT MASTECTOMY Chronic obstructive pulmonary disease COPD (chronic obstructive pulmonary disease) COVID-19 Deep vein thrombosis 15 YEARS AGO S/P LEG SURGERY Degenerative disc disease Dysphagia HX ESOPHAGEAL STRETCHING Fall GERD (gastroesophageal reflux disease) History of pulmonary embolism HTN (hypertension) Hypertension Osteoarthritis PAF (paroxysmal atrial fibrillation) Prolapsed bladder Pulmonary nodule, right Rectal bleeding Senile degeneration of brain T12 burst fracture Surgical History History of cataract surgery RT/LEFT History of colonoscopy History of esophagogastroduodenoscopy (EGD) History of mastectomy LEFT (NO BP/LAB DRAWS) History of tonsillectomy History of tooth extraction History of total hysterectomy with bilateral salpingo-oophorectomy (BSO) History of total knee replacement LEFT/RT Family History Other Alzheimer disease Stroke Social History Smoking Status: Never smoker Second Hand Exposure: Yes (AT WORK); Do You Dip or Chew Tobacco: No; Tobacco Cessation Education Requested by Patient: No Hx Alcohol Use: No Hx Substance Use: No Preferred Language: Swiss Communication Ability: Effective Cake Inspector Required: No Beliefs That Will Affect Care: None marital status: / Current Living Situation: Personal Care Facility Current Living Situation Comment: [facility] How many Children do You have: 1 Other Information That Helps Us Care for You: No Feels Safe at Home: Yes Safety Concerns: Feels Safe At This Time Childhood Exposure to Second-Hand Smoke: Yes Dental Care, Regularly: Yes Assistive Devices: Walker Assistive Devices Comment: GLASSESS AT CUSTODIAL Allergies Allergies Allergy/AdvReac Type Severity Reaction Status Date / Time bee venom protein (honey bee) Allergy Severe ANAPHYLAXIS Verified 12/14/21 01:31 Home Meds Home Medications Medication Instructions Recorded Confirmed aspirin 81 mg tablet,delayed 81 mg PO QAM 04/30/21 01/12/22 release montelukast 10 mg tablet 10 mg PO HS 04/30/21 01/12/22 tiotropium 2.5 mcg-olodaterol 2.5 1 puff inhalation QAM 04/30/21 01/12/22 mcg/actuation mist for inhalation (Stiolto Respimat) calcium carbonate 500 mg calcium 500 mg PO BID 06/24/21 01/12/22 (1,250 mg) chewable tablet docusate sodium 100 mg capsule 100 mg PO BID 06/24/21 01/12/22 (Colace) donepezil 5 mg tablet 5 mg PO BID 06/24/21 01/12/22 lorazepam 0.5 mg tablet 0.5 mg PO TID 06/24/21 01/12/22 sertraline 100 mg tablet 200 mg PO QAM 07/06/21 01/12/22 amiodarone 200 mg tablet 200 mg PO QAM 10/02/21 01/12/22 metoprolol tartrate 25 mg tablet 12.5 mg PO BID 10/02/21 01/12/22 pantoprazole 40 mg tablet,delayed 40 mg PO BID 10/02/21 01/12/22 release acetaminophen 325 mg tablet 650 mg PO Q4H PRN PAIN/FEVER 12/14/21 01/12/22 (Tylenol) epinephrine 0.3 mg/0.3 mL 0.3 mg IM DIRECTED PRN Allergic 12/14/21 01/12/22 injection, auto-injector (EpiPen) Reaction guaifenesin 200 mg tablet 400 mg PO TID PRN CHEST CONGESTION 12/14/21 01/12/22 lidocaine 5 % topical patch 1 patch transdermal QAM 12/14/21 01/12/22 furosemide 20 mg tablet 20 mg PO DAILY 12/16/21 01/12/22 albuterol sulfate 90 mcg/actuation 2 puff inhalation Q4H PRN 01/12/22 01/12/22 aerosol inhaler Shortness Of Breath Or Wheezing amoxicillin 875 mg-potassium 1 tab PO BID 01/12/22 01/12/22 clavulanate 125 mg tablet prednisone 10 mg tablet 10 mg PO UD 01/12/22 01/12/22 Previous Rx's Medication Instructions Recorded potassium chloride 10 mEq 10 meq PO DAILY #30 tabs 07/09/21 tablet,extended release(part/cryst) ferrous sulfate 325 mg (65 mg 325 mg PO BID 30 days #60 tabs 12/16/21 iron) tablet levalbuterol HCl 1.25 mg/3 mL 1.25 mg (3 mL) NEB Q4H PRN 12/16/21 solution for nebulization shortness of breath or wheezing #36 mL Results & Data (ED) Vital Signs Vital Signs - 24 hr 01/12/22 09:06 01/12/22 09:18 01/12/22 09:18 Temperature 36.5 C Temperature Source Oral Pulse Rate 76 Pulse Rate [Apical] Respiratory Rate 22 Respiratory Effort / Characteristics Blood Pressure 170/97 H Blood Pressure Mean 121 Blood Pressure Position Sitting Pulse Oximetry 98 96 Oxygen Delivery Method Room Air Room Air Nasal Cannula Oxygen Flow Rate 0 2 Sepsis Recent Fever Within 48 Hours No Sepsis New/Unexplained Change in Mental Status No Sepsis Action Taken by Nursing No Action Required 01/12/22 09:19 01/12/22 11:22 01/12/22 11:23 Temperature Temperature Source Pulse Rate Pulse Rate [Apical] 78 86 Respiratory Rate 16 35 H 26 H Respiratory Effort / Characteristics SOB on Exertion Blood Pressure Blood Pressure Mean Blood Pressure Position Pulse Oximetry 96 70 L 94 Oxygen Delivery Method Nasal Cannula Room Air Nasal Cannula Oxygen Flow Rate 2 5 Sepsis Recent Fever Within 48 Hours Sepsis New/Unexplained Change in Mental Status Sepsis Action Taken by Nursing Laboratory Data Result diagrams: 01/13/22 03:42 01/16/22 05:34 Lab Results 01/12/22 01/12/22 01/12/22 Range/Units 09:20 09:20 09:20 WBC 5.34 (4.8-10.8) K/ul RBC 4.11 (3.93-5.22) M/uL Hgb 10.7 L (12.0-16.0) g/dl Hct 35.3 (34.1-44.9) % MCV 85.9 (80.0-100.0) fL MCH 26.0 (25.0-34.0) pg MCHC 30.3 L (32.0-36.0) g/dL RDW Std Deviation 82.3 H (36.4-46.3) fL RDW Coeff of [place] 26.5 H (11.5-14.5) % Plt Count 248 (130-400) K/uL MPV 10.7 (9.4-12.3) fL Immature Gran % (Auto) 0.7 % Neut % (Auto) 84.9 % Lymph % (Auto) 7.1 % [place] % (Auto) 6.7 % Eos % (Auto) 0.0 % Baso % (Auto) 0.6 % Neut # (Auto) 4.53 (1.4-6.5) K/uL Lymph # (Auto) 0.38 L (1.2-3.4) K/uL [place] # (Auto) 0.36 (0.24-0.82) K/uL Eos # (Auto) 0.00 (0-0.50) K/uL Baso # (Auto) 0.03 (0-0.2) K/uL Immature Gran # (Auto) 0.04 H (0.00-0.02) K/uL Polychromasia 1+ Anisocytosis Present Sodium 146 H (136-145) mmol/L Potassium 3.4 L (3.5-5.1) mmol/L Chloride 100 (98-107) mmol/L Carbon Dioxide 37 H (21-32) mmol/L Anion Gap 9 (3-11) BUN 21 (6-23) mg/dl Creatinine 0.83 (0.6-1.2) mg/dl Est Cr Clr Drug Dosing 35.7 ml/min Est GFR ( Amer) 72.5 ml/min Est GFR (Non-Af Amer) 62.5 ml/min BUN/Creatinine Ratio 25.3 H (10-20) Glucose 91 (70-99(Fasting)) mg/dl Lactate (0.4-2.0) mmol/L Calcium 8.9 (8.5-10.1) mg/dl Total Bilirubin 0.6 (0.2-1.0) mg/dl AST 23 (13-39) U/L ALT 15 (7-52) U/L Alkaline Phosphatase 75 (34-104) U/L Troponin I High Sens 28.9 H D (0-14) pg/ml B-Natriuretic Peptide 1676 H (0-100) pg/ml Total Protein 6.5 (6.0-8.3) gm/dl Albumin 3.6 (3.4-5.0) gm/dl Globulin 2.9 (2.5-4.0) gm/dl Albumin/Globulin Ratio 1.2 (0.9-2) 01/12/22 Range/Units 09:30 WBC (4.8-10.8) K/ul RBC (3.93-5.22) M/uL Hgb (12.0-16.0) g/dl Hct (34.1-44.9) % MCV (80.0-100.0) fL MCH (25.0-34.0) pg MCHC (32.0-36.0) g/dL RDW Std Deviation (36.4-46.3) fL RDW Coeff of [place] (11.5-14.5) % Plt Count (130-400) K/uL MPV (9.4-12.3) fL Immature Gran % (Auto) % Neut % (Auto) % Lymph % (Auto) % [place] % (Auto) % Eos % (Auto) % Baso % (Auto) % Neut # (Auto) (1.4-6.5) K/uL Lymph # (Auto) (1.2-3.4) K/uL [place] # (Auto) (0.24-0.82) K/uL Eos # (Auto) (0-0.50) K/uL Baso # (Auto) (0-0.2) K/uL Immature Gran # (Auto) (0.00-0.02) K/uL Polychromasia Anisocytosis Sodium (136-145) mmol/L Potassium (3.5-5.1) mmol/L Chloride (98-107) mmol/L Carbon Dioxide (21-32) mmol/L Anion Gap (3-11) BUN (6-23) mg/dl Creatinine (0.6-1.2) mg/dl Est Cr Clr Drug Dosing ml/min Est GFR ( Amer) ml/min Est GFR (Non-Af Amer) ml/min BUN/Creatinine Ratio (10-20) Glucose (70-99(Fasting)) mg/dl Lactate 1.6 (0.4-2.0) mmol/L Calcium (8.5-10.1) mg/dl Total Bilirubin (0.2-1.0) mg/dl AST (13-39) U/L ALT (7-52) U/L Alkaline Phosphatase (34-104) U/L Troponin I High Sens (0-14) pg/ml B-Natriuretic Peptide (0-100) pg/ml Total Protein (6.0-8.3) gm/dl Albumin (3.4-5.0) gm/dl Globulin (2.5-4.0) gm/dl Albumin/Globulin Ratio (0.9-2) Administered Medications Amiodarone HCl (Amiodarone 200 Mg Tab) [facility] [place] Stop: 02/12/22 08:59 Last Admin: 01/16/22 08:30 Dose: 200 mg Documented By: Admin: 01/15/22 09:09 Dose: 200 mg Documented By: Admin: 01/14/22 08:45 Dose: 200 mg Documented By: Admin: 01/13/22 08:58 Dose: 200 mg Documented By: GIOVANI Aspirin (Aspirin 81 Mg Ectab) 81 mg PO [facility] Stop: 02/12/22 08:59 Last Admin: 01/16/22 08:30 Dose: 81 mg Documented By: Admin: 01/15/22 09:09 Dose: 81 mg Documented By: Admin: 01/14/22 08:45 Dose: 81 mg Documented By: Admin: 01/13/22 08:58 Dose: 81 mg Documented By: GIOVANI Budesonide (Budesonide 0.5 Mg/2 Ml Vial (Pulmicort)) 0.5 mg NEB BIDR [facility] Stop: 02/12/22 18:59 Last Admin: 01/16/22 06:48 Dose: 0.5 mg Documented By: Admin: 01/15/22 20:02 Dose: 0.5 mg Documented By: Admin: 01/15/22 06:54 Dose: 0.5 mg Documented By: Admin: 01/14/22 20:06 Dose: 0.5 mg Documented By: Admin: 01/14/22 06:56 Dose: 0.5 mg Documented By: Admin: 01/13/22 18:59 Dose: 0.5 mg Documented By: NEO Calcium Carbonate (Calcium Carbonate 1250mg Tab) 1,250 mg PO BIDM [facility] Stop: 02/11/22 16:59 Last Admin: 01/16/22 07:50 Dose: 1,250 mg Documented By: Admin: 01/15/22 16:47 Dose: 1,250 mg Documented By: Admin: 01/15/22 09:16 Dose: 1,250 mg Documented By: Admin: 01/14/22 16:20 Dose: 1,250 mg Documented By: Admin: 01/14/22 08:45 Dose: 1,250 mg Documented By: EEVarinder Admin: 01/13/22 16:24 Dose: Not Given Documented By: Admin: 01/13/22 08:58 Dose: 1,250 mg Documented By: Admin: 01/12/22 15:48 Dose: 1,250 mg Documented By: SUNI Docusate Sodium (Docusate Sodium 100 Mg Cap) 100 mg PO BID [facility] Stop: 02/11/22 20:59 Last Admin: 01/16/22 08:31 Dose: 100 mg Documented By: Admin: 01/15/22 20:12 Dose: 100 mg Documented By: Admin: 01/15/22 09:09 Dose: 100 mg Documented By: Admin: 01/14/22 21:14 Dose: 100 mg Documented By: Admin: 01/14/22 08:46 Dose: 100 mg Documented By: Admin: 01/13/22 20:26 Dose: 100 mg Documented By: Admin: 01/13/22 08:58 Dose: 100 mg Documented By: Admin: 01/12/22 20:20 Dose: 100 mg Documented By: ANKUR Donepezil HCl (Donepezil Hcl 5 Mg Tab) 5 mg PO BID [facility] Stop: 02/11/22 20:59 Last Admin: 01/16/22 08:31 Dose: 5 mg Documented By: Admin: 01/15/22 20:12 Dose: 5 mg Documented By: Admin: 01/15/22 09:09 Dose: 5 mg Documented By: Admin: 01/14/22 21:15 Dose: 5 mg Documented By: Admin: 01/14/22 08:46 Dose: 5 mg Documented By: Admin: 01/13/22 20:26 Dose: 5 mg Documented By: Admin: 01/13/22 08:58 Dose: 5 mg Documented By: Admin: 01/12/22 20:21 Dose: 5 mg Documented By: ANKUR Doxycycline Hyclate (Doxycycline Hyclate 100 Mg Cap) 100 mg PO Q12H [facility]; Protocol Stop: 01/17/22 10:01 Last Admin: 01/16/22 09:47 Dose: 100 mg Documented By: Admin: 01/15/22 20:15 Dose: 100 mg Documented By: CARMELINA Enoxaparin Sodium (Enoxaparin Inj 30 Mg/0.3 Ml Syr) 30 mg SQ Q24H [facility] Stop: 02/11/22 14:59 Last Admin: 01/15/22 15:04 Dose: 30 mg Documented By: Admin: 01/14/22 14:58 Dose: 30 mg Documented By: Admin: 01/13/22 16:23 Dose: 30 mg Documented By: Admin: 01/12/22 15:35 Dose: 30 mg Documented By: SUNI Ferrous Sulfate (Ferrous Sulfate 325 Mg Tab) 325 mg PO BIDM [facility] Stop: 02/11/22 20:59 Last Admin: 01/16/22 07:50 Dose: 325 mg Documented By: Admin: 01/15/22 16:47 Dose: 325 mg Documented By: ARMAAN Furosemide (Furosemide Inj 20 Mg/2 Ml Vial) 20 mg IV DAILY [facility] Stop: 02/12/22 08:59 Last Admin: 01/16/22 08:37 Dose: 20 mg Documented By: Admin: 01/15/22 09:17 Dose: 20 mg Documented By: Admin: 01/14/22 09:08 Dose: 20 mg Documented By: Admin: 01/13/22 09:04 Dose: 20 mg Documented By: GIOVANI Guaifenesin (Guaifenesin 600 Mg Tabcr) 600 mg PO Q12 [facility] Stop: 02/11/22 20:59 Last Admin: 01/16/22 08:31 Dose: 600 mg Documented By: Admin: 01/15/22 20:13 Dose: 600 mg Documented By: Admin: 01/15/22 09:09 Dose: 600 mg Documented By: Admin: 01/14/22 21:13 Dose: 600 mg Documented By: Admin: 01/14/22 08:46 Dose: 600 mg Documented By: Admin: 01/13/22 20:26 Dose: 600 mg Documented By: Admin: 01/13/22 08:58 Dose: 600 mg Documented By: Admin: 01/12/22 20:22 Dose: 600 mg Documented By: ANKUR Ipratropium [place] (Ipratropium [place] Neb Soln 0.02% 2.5 Ml Vial) 0.5 mg INH Q6R [facility] Stop: 02/11/22 14:59 Last Admin: 01/16/22 06:48 Dose: 0.5 mg Documented By: Admin: 01/16/22 00:05 Dose: 0.5 mg Documented By: Admin: 01/15/22 20:01 Dose: 0.5 mg Documented By: Admin: 01/15/22 12:51 Dose: 0.5 mg Documented By: Admin: 01/15/22 06:54 Dose: 0.5 mg Documented By: Admin: 01/15/22 00:43 Dose: 0.5 mg Documented By: Admin: 01/14/22 20:06 Dose: 0.5 mg Documented By: BWVilma Admin: 01/14/22 13:32 Dose: 0.5 mg Documented By: Admin: 01/14/22 06:56 Dose: 0.5 mg Documented By: Admin: 01/14/22 00:39 Dose: 0.5 mg Documented By: Admin: 01/13/22 18:59 Dose: 0.5 mg Documented By: Admin: 01/13/22 12:57 Dose: 0.5 mg Documented By: Admin: 01/13/22 07:40 Dose: 0.5 mg Documented By: JBRosa Admin: 01/13/22 00:10 Dose: 0.5 mg Documented By: Admin: 01/12/22 19:11 Dose: 0.5 mg Documented By: Admin: 01/12/22 15:57 Dose: 0.5 mg Documented By: DIANE Levalbuterol HCl (Levalbuterol 1.25mg/0.5ml Neb) 1.25 mg INH Q6R [facility] Stop: 02/11/22 14:59 Last Admin: 01/16/22 06:48 Dose: 1.25 mg Documented By: Admin: 01/16/22 00:05 Dose: 1.25 mg Documented By: Admin: 01/15/22 20:01 Dose: 1.25 mg Documented By: Admin: 01/15/22 12:51 Dose: 1.25 mg Documented By: Admin: 01/15/22 06:54 Dose: 1.25 mg Documented By: Admin: 01/15/22 00:43 Dose: 1.25 mg Documented By: Admin: 01/14/22 20:06 Dose: 1.25 mg Documented By: Admin: 01/14/22 13:32 Dose: 1.25 mg Documented By: Admin: 01/14/22 06:56 Dose: 1.25 mg Documented By: Admin: 01/14/22 00:39 Dose: 1.25 mg Documented By: Admin: 01/13/22 18:59 Dose: 1.25 mg Documented By: Admin: 01/13/22 12:57 Dose: 1.25 mg Documented By: Admin: 01/13/22 07:40 Dose: 1.25 mg Documented By: Admin: 01/13/22 00:10 Dose: 1.25 mg Documented By: Admin: 01/12/22 19:11 Dose: 1.25 mg Documented By: Admin: 01/12/22 15:57 Dose: 1.25 mg Documented By: CRG Lidocaine (Lidocaine 5% 1 Patch) 1 patch TD QAM [facility] Stop: 02/12/22 08:59 Last Admin: 01/16/22 08:31 Dose: 1 patch Documented By: Admin: 01/15/22 09:10 Dose: 1 patch Documented By: Admin: 01/14/22 08:47 Dose: 1 patch Documented By: Admin: 01/13/22 09:07 Dose: 1 patch Documented By: GIOVANI Lorazepam (Lorazepam 0.5 Mg Tab) 0.5 mg PO TID@0630,1500,2000 [facility] Stop: 02/11/22 14:59 Last Admin: 01/16/22 05:40 Dose: 0.5 mg Documented By: Admin: 01/15/22 20:09 Dose: 0.5 mg Documented By: Admin: 01/15/22 15:04 Dose: 0.5 mg Documented By: Admin: 01/15/22 06:35 Dose: 0.5 mg Documented By: Admin: 01/14/22 21:13 Dose: 0.5 mg Documented By: Admin: 01/14/22 14:58 Dose: 0.5 mg Documented By: Admin: 01/14/22 06:00 Dose: 0.5 mg Documented By: Admin: 01/13/22 20:26 Dose: 0.5 mg Documented By: Admin: 01/13/22 15:51 Dose: 0.5 mg Documented By: Admin: 01/13/22 06:15 Dose: 0.5 mg Documented By: Admin: 01/12/22 20:20 Dose: 0.5 mg Documented By: Admin: 01/12/22 15:44 Dose: 0.5 mg Documented By: SUNI Metoprolol Tartrate (Metoprolol Tartrate 25 Mg Tab) 12.5 mg PO BID [facility] Stop: 02/11/22 20:59 Last Admin: 01/16/22 08:31 Dose: 12.5 mg Documented By: Admin: 01/15/22 20:10 Dose: 12.5 mg Documented By: Admin: 01/15/22 09:09 Dose: 12.5 mg Documented By: Admin: 01/14/22 21:13 Dose: 12.5 mg Documented By: Admin: 01/14/22 08:45 Dose: 12.5 mg Documented By: Admin: 01/13/22 20:27 Dose: 12.5 mg Documented By: Admin: 01/13/22 08:58 Dose: 12.5 mg Documented By: Admin: 01/12/22 20:21 Dose: 12.5 mg Documented By: ANKUR Miscellaneous (Remove Lidoderm Patch) 1 each N/A DAILY@2100 [facility] Stop: 02/11/22 20:59 Last Admin: 01/15/22 20:19 Dose: 1 each Documented By: Admin: 01/14/22 21:16 Dose: 1 each Documented By: Admin: 01/13/22 21:00 Dose: 1 each Documented By: Admin: 01/12/22 20:25 Dose: Not Given Documented By: ANKUR Montelukast Sodium (Montelukast Sodium 10 Mg Tablet) 10 mg PO HS [facility] Stop: 02/11/22 20:59 Last Admin: 01/15/22 20:11 Dose: 10 mg Documented By: Admin: 01/14/22 21:13 Dose: 10 mg Documented By: Admin: 01/13/22 20:27 Dose: 10 mg Documented By: Admin: 01/12/22 20:21 Dose: 10 mg Documented By: ANKUR Pantoprazole Sodium (Pantoprazole 40 Mg Tab) 40 mg PO BID [facility] Stop: 02/11/22 20:59 Last Admin: 01/16/22 08:31 Dose: 40 mg Documented By: Admin: 01/15/22 20:14 Dose: 40 mg Documented By: Admin: 01/15/22 09:09 Dose: 40 mg Documented By: Admin: 01/14/22 21:13 Dose: 40 mg Documented By: Admin: 01/14/22 08:46 Dose: 40 mg Documented By: Admin: 01/13/22 20:27 Dose: 40 mg Documented By: Admin: 01/13/22 08:58 Dose: 40 mg Documented By: Admin: 01/12/22 20:22 Dose: 40 mg Documented By: ANKUR Polyethylene Glycol (Polyethylene (Miralax) 17 Gm Pack) 17 gm PO DAILY PRN PRN Reason: Constipation Stop: 02/11/22 14:43 Last Admin: 01/12/22 15:44 Dose: 17 gm Documented By: MANJINDERK Potassium Chloride (Potassium Chloride Crtab 20 Meq Tabcr) 20 meq PO BID [facility] Stop: 02/11/22 20:59 Last Admin: 01/16/22 08:31 Dose: 20 meq Documented By: Admin: 01/15/22 20:15 Dose: 20 meq Documented By: Admin: 01/15/22 09:09 Dose: 20 meq Documented By: Admin: 01/14/22 21:13 Dose: 20 meq Documented By: Admin: 01/14/22 08:46 Dose: 20 meq Documented By: Admin: 01/13/22 20:26 Dose: 20 meq Documented By: Admin: 01/13/22 09:06 Dose: 20 meq Documented By: Admin: 01/12/22 20:20 Dose: 20 meq Documented By: ANKUR Sertraline HCl (Sertraline Hcl 100 Mg Tablet) 200 mg PO QAM [facility] Stop: 02/12/22 08:59 Last Admin: 01/16/22 08:31 Dose: 200 mg Documented By: Admin: 01/15/22 09:09 Dose: 200 mg Documented By: Admin: 01/14/22 08:45 Dose: 200 mg Documented By: Admin: 01/13/22 08:58 Dose: 200 mg Documented By: GIOVANI Sodium Chloride (Sodium Chlor 7% 4 Ml Neb) 4 ml NEB BIDR [facility] Stop: 02/12/22 18:59 Last Admin: 01/16/22 06:48 Dose: 4 ml Documented By: Admin: 01/15/22 20:01 Dose: 4 ml Documented By: Admin: 01/15/22 06:54 Dose: 4 ml Documented By: Admin: 01/14/22 20:06 Dose: 4 ml Documented By: Admin: 01/14/22 06:56 Dose: 4 ml Documented By: Admin: 01/13/22 18:59 Dose: 4 ml Documented By: EMRosa Umeclidinium/Vilanterol (Umeclidinium/Vilanterol 62.5/25mcg 7 Puffs/Inhaler) 1 puffs INH QAM [facility]; Protocol Stop: 02/12/22 08:59 Last Admin: 01/16/22 09:00 Dose: 1 puffs Documented By: Admin: 01/15/22 09:06 Dose: 1 puffs Documented By: Admin: 01/14/22 08:46 Dose: 1 puffs Documented By: Admin: 01/13/22 08:57 Dose: 1 puffs Documented By: SUB Discontinued Medications Acetylcysteine (Acetylcysteine 10% Inhal Soln 4 Ml Dispensed By Resp.) 3 ml INH BIDR MARILIA Stop: 02/12/22 10:29 Last Admin: 01/13/22 12:55 Dose: 3 ml Documented By: ISAK Albuterol (Albut/Ipratrop 3mg/0.5mg Neb 3 Ml Vial) 3 ml NEB NOW STA; Protocol Stop: 01/12/22 11:24 Last Admin: 01/12/22 11:28 Dose: 3 ml Documented By: ISABELLE Aspirin (Aspirin 81 Mg Chew) 324 mg PO ONE ONE Stop: 01/12/22 15:03 Last Admin: 01/12/22 15:51 Dose: 324 mg Documented By: SUNI Doxycycline Hyclate (Doxycycline Hyclate 100 Mg Cap) 100 mg PO ONE ONE; Protocol Stop: 01/15/22 12:31 Last Admin: 01/15/22 12:08 Dose: 100 mg Documented By: ARMAAN Ferrous Sulfate (Ferrous Sulfate 325 Mg Tab) 325 mg PO BID [facility] Stop: 02/11/22 20:59 Last Admin: 01/15/22 09:09 Dose: 325 mg Documented By: Admin: 01/14/22 21:15 Dose: 325 mg Documented By: Admin: 01/14/22 08:44 Dose: 325 mg Documented By: Admin: 01/13/22 20:26 Dose: 325 mg Documented By: Admin: 01/13/22 08:58 Dose: 325 mg Documented By: Admin: 01/12/22 20:22 Dose: 325 mg Documented By: ANKUR Furosemide (Furosemide Inj 20 Mg/2 Ml Vial) 20 mg IV ONE ONE Stop: 01/12/22 11:25 Last Admin: 01/12/22 11:43 Dose: 20 mg Documented By: KYLIE Furosemide (Furosemide Inj 20 Mg/2 Ml Vial) 20 mg IV ONE ONE Stop: 01/13/22 18:01 Last Admin: 01/13/22 18:14 Dose: 20 mg Documented By: GIOVANI Furosemide (Furosemide Inj 20 Mg/2 Ml Vial) 20 mg IV ONE ONE Stop: 01/14/22 18:01 Last Admin: 01/14/22 17:02 Dose: 20 mg Documented By: CHELA Furosemide (Furosemide Inj 20 Mg/2 Ml Vial) 20 mg IV ONE ONE Stop: 01/15/22 18:01 Last Admin: 01/15/22 17:28 Dose: 20 mg Documented By: ARMAAN Cefepime HCl (Maxipime) 2,000 mg in 20 mls @ 5 mls/min IV NOW STA; Protocol Stop: 01/12/22 11:27 Last Admin: 01/12/22 11:40 Dose: 5 mls/min Documented By: KYLIE Cefepime HCl 2,000 mg/ Syringe 20 mls @ 5 mls/min IV Q12H MARILIA; Protocol Stop: 01/19/22 20:59 Last Admin: 01/14/22 09:09 Dose: Not Given Documented By: Admin: 01/13/22 20:27 Dose: 5 mls/min Documented By: Admin: 01/13/22 09:04 Dose: 5 mls/min Documented By: Admin: 01/12/22 20:20 Dose: 5 mls/min Documented By: ANKUR Doxycycline Hyclate 100 mg/ (Dextrose) 110 mls @ 50 mls/hr IV Q12H MARILIA Stop: 01/19/22 14:59 Last Infusion: 01/15/22 06:04 Dose: 0 mls/hr Documented By: Admin: 01/15/22 03:31 Dose: 50 mls/hr Documented By: Infusion: 01/14/22 17:12 Dose: 0 mls/hr Documented By: Admin: 01/14/22 14:58 Dose: 50 mls/hr Documented By: Infusion: 01/14/22 07:18 Dose: 0 mls/hr Documented By: Admin: 01/14/22 04:53 Dose: 50 mls/hr Documented By: Infusion: 01/13/22 18:30 Dose: 0 mls/hr Documented By: Admin: 01/13/22 15:51 Dose: 50 mls/hr Documented By: Infusion: 01/13/22 05:40 Dose: 0 mls/hr Documented By: Admin: 01/13/22 03:26 Dose: 50 mls/hr Documented By: Infusion: 01/12/22 18:10 Dose: 0 mls/hr Documented By: Admin: 01/12/22 15:31 Dose: 50 mls/hr Documented By: HLK Magnesium Hydroxide (Magnesium Hydroxide Susp 30 Ml Udc) 30 ml PO NOW ONE Stop: 01/12/22 14:45 Last Admin: 01/12/22 15:44 Dose: Not Given Documented By: HLK Nitroglycerin (Nitroglycerin 2% Ointment 30gm Tube) 0.5 inch EXT NOW STA Stop: 01/12/22 11:25 Last Admin: 01/12/22 11:40 Dose: 0.5 inch Documented By: HNB Potassium Chloride (Potassium Chloride Crtab 20 Meq Tabcr) 40 meq PO NOW STA Stop: 01/12/22 14:05 Last Admin: 01/12/22 15:36 Dose: 40 meq Documented By: HLK Imaging Data Radiologist's Impression: Chest X-Ray 01/12/22 09:05 XR chest 1V portable CLINICAL HISTORY: Dyspnea. COMPARISON STUDY: Chest radiograph December 13, [address] December 14, 2021. FINDINGS: There is no pneumothorax. Mild cardiomegaly is noted. Small left pleural effusion is noted. Left basilar opacity has increased. Mild pulmonary edema persists. Right apical opacity is better depicted on prior chest CT. Osteoarthritis of the bilateral glenohumeral joints is greater on the right. IMPRESSION: 1. Mild interstitial pulmonary edema. 2. Small left pleural effusion with left basilar opacity which could reflect co nsolidation or atelectasis. ACT 112: Negative or not required by law. Electronically signed by: Kemal Elizabeth M.D. 01/12/2022 9:53 AM Discharge Plan Visit Data Chief Complaint: Shortness of Breath/Dyspnea Stated Complaint: SOB, + RSV ED Provider: Kee Benavidez Discharge Problem: Hypoxia, SOB (shortness of breath), RSV infection, Pneumonia, CHF (congestive heart failure) Patient Disposition: Admitted As Inpatient Discharge Instructions Interventions: ED Discharge Assessment Last Done: 01/12/22 14:06
[2022-01-12 09:47] LABS: Basophils # (auto) 0.03 K/uL (0-0.2); Basophils % (auto) 0.6 %; Hematocrit (blood only) 35.3 % (34.1-44.9); Hemoglobin 10.7 g/dl (12.0-16.0); Immature Granulocytes # (auto) 0.04 K/uL (0.00-0.02); Immature Granulocytes % (auto) 0.7 %; Lymphocytes # (auto) 0.38 K/uL (1.2-3.4); Lymphocytes % (auto) 7.1 %; Mean Corpuscular Hgb Conc 30.3 g/dL (32.0-36.0); Mean Corpuscular Volume 85.9 fL (80.0-100.0); Mean Platelet Volume 10.7 fL (9.4-12.3); Monocytes # (auto) 0.36 K/uL (0.24-0.82); Monocytes % (auto) 6.7 %; Neutrophils # (auto) 4.53 K/uL (1.4-6.5); Neutrophils % (auto) 84.9 %; Platelet Count 248 K/uL (130-400); RDW Coefficient of Variation 26.5 % (11.5-14.5); RDW Standard Deviation 82.3 fL (36.4-46.3); Red Blood Count 4.11 M/uL (3.93-5.22); White Blood Count 5.34 K/ul (4.8-10.8)
--- NOTE | 2022-01-12 09:55 | XRay Report ---
XR chest 1V portable CLINICAL HISTORY: Dyspnea. COMPARISON STUDY: Chest radiograph December 13, [address] December 14, 2021. FINDINGS: There is no pneumothorax. Mild cardiomegaly is noted. Small left pleural effusion is noted. Left basilar opacity has increased. Mild pulmonary edema persists. Right apical opacity is better de picted on prior chest CT. Osteoarthritis of the bilateral glenohumeral joints is greater on the right . IMPRESSION: 1. Mild interstitial pulmonary edema. 2. Small left pleural effusion with left basilar opacity which could reflect consolidation or atelect asis. ACT 112: Negative or not required by law. Electronically signed by: Kemal Elizabeth M.D. 01/12/2022 9:53 AM
[2022-01-12 10:10] LABS: Albumin Globulin Ratio 1.2 (0.9-2); Albumin Level 3.6 gm/dl (3.4-5.0); BUN Creatinine Ratio 25.3 (10-20); Bilirubin,Total 0.6 mg/dl (0.2-1.0); Calcium 8.9 mg/dl (8.5-10.1); Creatinine Clr Calc Pharmacy 35.7 ml/min; Est GFR (African American) 72.5 ml/min; Est GFR (Non-African American) 62.5 ml/min; Globulin 2.9 gm/dl (2.5-4.0); Potassium 3.4 mmol/L (3.5-5.1); Total Protein 6.5 gm/dl (6.0-8.3)
[2022-01-12 10:11] LABS: Anisocytosis Present; Polychromasia 1+
[2022-01-12 10:15] LABS: Troponin I High Sensitivity 28.9 pg/ml (0-14)
[2022-01-12] MEDS ORDERED: ALBUT/IPRATROP 3MG/0.5MG NEB 3 ML VIAL NEB STA (11:23)
[2022-01-12] MEDS ORDERED: CEFEPIME 2,000 MG/20 ML VIAL IV STA (11:24)
[2022-01-12] MEDS ORDERED: FUROSEMIDE INJ 20 MG/2 ML VIAL IV ONE (11:24)
[2022-01-12] MEDS ORDERED: NITROGLYCERIN 2% OINTMENT 30GM TUBE EXT STA (11:24)
[2022-01-12 12:09] LABS: Appearance Urine Clear (Clear); Bacteria Urine Automated Negative (Negative); Bilirubin Urine Negative (Negative); Blood Urine Trace (Negative); Color Urine Dark Yellow; Epithelial Cell Urine Auto 20-30 /lpf (0-5); Glucose Urine UA Negative (Negative); Ketones Urine Trace (Negative); Leukocyte Esterase Urine Negative (Negative); Nitrite Urine Negative (Negative); Protein Urine 3+ (Negative); Specific Gravity Urine 1.024 (1.000-1.030); Urobilinogen Urine Negative (Negative); pH Urine 5.5 (4.5-7.5)
--- NOTE | 2022-01-12 13:12 | History & Physical Report ---
Date of Service January 12, 2022 Assessment & Plan (1) Acute respiratory failure: (2) RSV infection: (3) Acute exacerbation of chronic obstructive pulmonary disease: Plan: Possible pneumonia Patient is 89 y/o F with PMH left breast cancer s/p left radical mastectomy, radiation pneumonitis, h/o right upper lobe lesion concerning for possible carcinoma s/p empiric radiation, asthma, COPD, HTN, PAF, anemia of chronic disease, and others listed below presented to ER for worsening SOB, cough. URI symptoms x 1 week. +RSV 01/08/22 outpatient. Given prednisone taper, albuterol, one dose of Ceftriaxone 1gm IM. 01/11/22 started Augmentin BID x 10 days for possible superimposed pneumonia on CXR. 1 month ago hospitalization and treated for acute bronchitis, possible pneumonia, discharged on Augmentin and doxycycline In ER afebrile, O2 sat noted to drop to 70% on room air with ambulation, 98% on 3 L via nasal cannula. Other vitals stable. No leukocytosis. Lactate WNL. Negative rapid COVID-19. CXR: Small left pleural effusion with left basilar opacity which could reflect consolidation or atelectasis History negative MRSA swab 12/14/2021 Blood cultures pending Procalcitonin pending Sputum culture pending In ER given cefepime Possible pneumonia, continue cefepime, doxycycline Xopenex/Atrovent nebs Incentive spirometer Supplemental oxygen Will hold on steroids, reassess throughout hospital course Mucinex Continue home inhalers CBC in a.m. (4) Acute heart failure with preserved ejection fraction: Plan: History Echo 06/25/2021: EF: 65-70%, mild concentric LVH, left atrium severely dilated, severe mitral annular calcification, moderate MR, mild MS, mild TR, severe pulmonary hypertension, small right pleural effusion CXR: Mild interstitial pulmonary edema. Small left pleural effusion with left basilar opacity which could reflect consolidation or atelectasis. BNP: 1676 In ER nitro paste placed and given lasix 20mg IV. Initial diuresis of 1100ml in Her bag Hold home oral Lasix 20mg daily. Lasix 20 mg IV daily. Monitor further diuresis Monitor I's and O's, daily weight, low-sodium diet Echo BMP in am (5) Hypokalemia: Plan: K: 3.4. magnesium lab pending Replace Hold home potassium and start KCl 20mg BID and monitor BMP (6) Elevated troponin: Plan: Reported midsternal chest pain this morning, resolved after treatment in ER Troponin: 28.9. 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 With radiation pneumonitis DVT Prophylaxis Lovenox SQ DNR/DNI as per discussion with pt Follows with Dr Rodriguez for routine care Pt was seen and care coordinated with Dr Reyes. See addendum (13) Shingles: Plan: Rash with lesions that are crusted over and dry. Recent history of antivirals two weeks ago, and she denies any pain. Keep rash covered and will communicate to place a sign up for anyone who has not been previously vaccinated or has a risk of ayesha VZV. History of Present Illness Chief Complaint: SOB Primary Care Provider: [facility] Patient is 89 y/o F with PMH left breast cancer s/p left radical mastectomy, radiation pneumonitis, h/o right upper lobe lesion concerning for possible carcinoma s/p empiric radiation, asthma, COPD, HTN, PAF, anemia of chronic disease, and others listed below presented to ER for SOB. Patient has been having cough, exertional shortness of breath for 1 week. 01/08/22 PCP office for symptoms of cough, chills, SOB, wheezing. Was given prednisone taper, albuterol, one dose of Ceftriaxone 1gm IM. Had Positive RSV, negative COVID-19. 01/11/22 was given Rx for Augmentin BID x 10 days for possible superimposed pneumonia on CXR. Was also instructed to increase Lasix to 40mg BID and increase potassium 2 tabs BID x 5 days then resume current dose secondary to evidence of CHF on CXR (unsure if this was started, [facility] records show Lasix 20mg daily). Today with increased shortness of breath and had reported hypoxia at [facility] today dropped to 70's and was referred to ER. EMS reported O2 sat 88% and was given neb treatment. Patient states this morning with mid sternal chest pain has resolved after treatment in ER. Reports no BM in 3-4 days, denies abdominal pain. Diagnosed with shingles to left flank couple of weeks ago and treated with valacyclovir. In ER given albuterol nebulizer treatment and after was reported to desat down to 70% on room air with ambulating to bathroom. Denies fever, diaphoresis, N/V/D, MILNER, dizziness, syncope, vision changes, neck pain, palpitations, hemoptysis, choking, otalgia, rhinorrhea, paresthesias, extremity weakness, extremity edema, rashes, urinary symptoms. Recent history recurrent hospitalizations, most recent admission 12/14/2021- 12/16/2021 for acute bronchitis, possible RUL infiltrate. CT chest at that time was negative for PE, questioned RUL infiltrate versus underlying malignancy. Was treated with Zosyn, doxycycline. Discharged on Augmentin and doxycycline. History hospital admission 11/29/2021-12/02/2021 for acute T12 burst fracture, T10-T11 fracture s/p fall, s/p kyphoplasty 11/30/2021 History hospital admission 11/12/2021-11/19/2021 COVID-19 treated with steroids, remdesivir, COPD exacerbation in setting of COVID, acute on chronic diastolic heart failure Allergies Allergy/AdvReac Type Severity Reaction Status Date / Time bee venom protein (honey bee) Allergy Severe ANAPHYLAXIS Verified 12/14/21 01:31 Home Medications Medication Instructions Recorded Confirmed Type aspirin 81 mg tablet,delayed 81 mg PO QAM 04/30/21 01/12/22 History release montelukast 10 mg tablet 10 mg PO HS 04/30/21 01/12/22 History tiotropium 2.5 mcg-olodaterol 2.5 1 puff inhalation QAM 04/30/21 01/12/22 History mcg/actuation mist for inhalation (Stiolto Respimat) calcium carbonate 500 mg calcium 500 mg PO BID 06/24/21 01/12/22 History (1,250 mg) chewable tablet docusate sodium 100 mg capsule 100 mg PO BID 06/24/21 01/12/22 History (Colace) donepezil 5 mg tablet 5 mg PO BID 06/24/21 01/12/22 History lorazepam 0.5 mg tablet 0.5 mg PO TID 06/24/21 01/12/22 History sertraline 100 mg tablet 200 mg PO QAM 07/06/21 01/12/22 History potassium chloride 10 mEq 10 meq PO DAILY #30 tabs 07/09/21 01/12/22 Rx tablet,extended release(part/cryst) amiodarone 200 mg tablet 200 mg PO QAM 10/02/21 01/12/22 History metoprolol tartrate 25 mg tablet 12.5 mg PO BID 10/02/21 01/12/22 History pantoprazole 40 mg tablet,delayed 40 mg PO BID 10/02/21 01/12/22 History release acetaminophen 325 mg tablet 650 mg PO Q4H PRN PAIN/FEVER 12/14/21 01/12/22 History (Tylenol) epinephrine 0.3 mg/0.3 mL 0.3 mg IM DIRECTED PRN Allergic 12/14/21 01/12/22 History injection, auto-injector (EpiPen) Reaction guaifenesin 200 mg tablet 400 mg PO TID PRN CHEST CONGESTION 12/14/21 01/12/22 History lidocaine 5 % topical patch 1 patch transdermal QAM 12/14/21 01/12/22 History ferrous sulfate 325 mg (65 mg 325 mg PO BID 30 days #60 tabs 12/16/21 01/12/22 Rx iron) tablet furosemide 20 mg tablet 20 mg PO DAILY 12/16/21 01/12/22 History levalbuterol HCl 1.25 mg/3 mL 1.25 mg (3 mL) NEB Q4H PRN 12/16/21 01/12/22 Rx solution for nebulization shortness of breath or wheezing #36 mL albuterol sulfate 90 mcg/actuation 2 puff inhalation Q4H PRN 01/12/22 01/12/22 History aerosol inhaler Shortness Of Breath Or Wheezing amoxicillin 875 mg-potassium 1 tab PO BID 01/12/22 01/12/22 History clavulanate 125 mg tablet prednisone 10 mg tablet 10 mg PO UD 01/12/22 01/12/22 History Past Med/Surg History Medical History Abnormal CT of the chest Acute on chronic heart failure with preserved ejection fraction Anemia of chronic disease Anxiety Anxiety Asthma USING RESCUE INHALER FREQUENTLY/DAILY Asthma-COPD overlap syndrome Cancer BREAST CANCER-LEFT MASTECTOMY Chronic obstructive pulmonary disease COPD (chronic obstructive pulmonary disease) COVID-19 Deep vein thrombosis 15 YEARS AGO S/P LEG SURGERY Degenerative disc disease Dysphagia HX ESOPHAGEAL STRETCHING Fall GERD (gastroesophageal reflux disease) History of pulmonary embolism HTN (hypertension) Hypertension Osteoarthritis PAF (paroxysmal atrial fibrillation) Prolapsed bladder Pulmonary nodule, right Rectal bleeding Senile degeneration of brain T12 burst fracture Surgical History History of cataract surgery RT/LEFT History of colonoscopy History of esophagogastroduodenoscopy (EGD) History of mastectomy LEFT (NO BP/LAB DRAWS) History of tonsillectomy History of tooth extraction History of total hysterectomy with bilateral salpingo-oophorectomy (BSO) History of total knee replacement LEFT/RT Family History Other Alzheimer disease Stroke Social History Smoking Status: Never smoker Second Hand Exposure: Yes (AT WORK); Do You Dip or Chew Tobacco: No; Tobacco Cessation Education Requested by Patient: No Hx Alcohol Use: No Hx Substance Use: No Preferred Language: Guinean Communication Ability: Effective 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 Beliefs That Will Affect Care: None marital status: / Current Living Situation: Personal Care Facility Current Living Situation Comment: [facility] How many Children do You have: 1 Other Information That Helps Us Care for You: No Feels Safe at Home: Yes Safety Concerns: Feels Safe At This Time Childhood Exposure to Second-Hand Smoke: Yes Dental Care, Regularly: Yes Assistive Devices: Hearing Aid - Bilateral Assistive Devices Comment: [facility] AT [facility] Review of Systems Review of Systems: All systems reviewed & are unremarkable except as noted in HPI & below Physical Exam Physical Exam: General: no acute distress, WDWN elderly female Head: normocephalic, atraumatic Eyes: PERRL, EOM's intact, conjunctiva non-injected, anicteric ENT: normal inspection external ears, nose, mucous membranes moist Neck: supple, trachea midline Lungs: no respiratory distress on current 2L O2 via NC, +diffuse wheezing and rhonchi throughout CV: RRR, + murmur, no pretibial edema Abd: normal BS, soft, non-tender Ext: no cyanosis, no calf tenderness Neuro: A&O x 3, no focal deficits noted, normal affect Skin: warm, dry Results & Data Results & Data ([facility]) Vital Signs (Past 12 Hours) Vital Signs Temp Pulse Pulse Resp BP Pulse Ox O2 Del Method 01/12/22 11:23 26 H 94 Nasal Cannula 01/12/22 11:22 86 35 H 70 L Room Air 01/12/22 09:19 78 16 96 Nasal Cannula 01/12/22 09:18 96 Nasal Cannula 01/12/22 09:18 Room Air 01/12/22 09:06 36.5 C 76 22 170/97 H 98 Room Air O2 Flow Rate 01/12/22 11:23 5 01/12/22 11:22 01/12/22 09:19 2 01/12/22 09:18 2 01/12/22 09:18 0 01/12/22 09:06 Laboratory Results Short CBC 01/12/22 Range/Units 09:20 WBC 5.34 (4.8-10.8) K/ul Hgb 10.7 L (12.0-16.0) g/dl Hct 35.3 (34.1-44.9) % Plt Count 248 (130-400) K/uL BMP 01/12/22 09:20 Sodium 146 H Potassium 3.4 L Chloride 100 Carbon Dioxide 37 H BUN 21 Creatinine 0.83 Glucose 91 Calcium 8.9 Liver Function 01/12/22 Range/Units 09:20 Total Bilirubin 0.6 (0.2-1.0) mg/dl AST 23 (13-39) U/L ALT 15 (7-52) U/L Alkaline Phosphatase 75 (34-104) U/L Albumin 3.6 (3.4-5.0) gm/dl Urine 01/12/22 Range/Units Unknown Urine Color Dark Yellow Urine Appearance Clear (Clear) Urine pH 5.5 (4.5-7.5) Ur Specific [place] 1.024 (1.000-1.030) Urine Protein 3+ H (Negative) Urine Glucose (UA) Negative (Negative) Diagnostic Findings Chest X-Ray 01/12/22 09:05 XR chest 1V portable CLINICAL HISTORY: Dyspnea. COMPARISON STUDY: Chest radiograph December 13, [address] December 14. FINDINGS: There is no pneumothorax. Mild cardiomegaly is noted. Small left pleural effusion is noted. Left basilar opacity has increased. Mild pulmonary edema persists. Right apical opacity is better depicted on prior chest CT. Osteoarthritis of the bilateral glenohumeral joints is greater on the right. IMPRESSION: 1. Mild interstitial pulmonary edema. 2. Small left pleural effusion with left basilar opacity which could reflect consolidation or atelectasis. ACT 112: Negative or not required by law. Electronically signed by: Kemal Elizabeth M.D. 01/12/2022 9:53 AM ECG Rate (beats per minute): 77 Rhythm: sinus rhythm Comparison ECG Date: from (QTC: 502. Otherwise No signficant change compared to 12/13/21) Additional Comments: Normal sinus rhythm Possible Left atrial enlargement Prolonged QT Abnormal ECG When compared with ECG of 13-DEC-2021 22:39, No significant change was found Confirmed by Scott Cade ([id number]) on 01/12/2022 2:05:27 PM Supervising Physician Co-Signing Physician Notes I have seen and examined the patient and have discussed the case with the provider above. I agree with the assessment and plan as stated. 89 yo F with possible issues with aspiration as well as a h/o moderate COPD of unclear etiology, pulmonary hypertension, presumed lung cancer, a recent diagnosis of RSV and chronic heart failure with a recent reduction in her Lasix dose presents with a junky cough and worsening shortness of breath since Monday of last week. She was seen by PCP and started on steroids and Augmentin. She denies any feve rs, chest pain, or other symptoms but is a very poor historian. On physical she is not working to breathe. She is frail and elderly and examines as euvolemic. There is coarse rhonchi without crackles, rales or wheezes throughout all lung croft on exam. Cardiac exam is unremarkable and skin is warm and dry. She is answering questions appropriately but seems to tell different providers differe nt facts of the history. Amidst a recent hospitalization for acute bronchitis, she was then infected with RSV and suffered a shingles infection. At this time, steroids have been given for a few days already and are not considered ideal given the patient's age and likelihood to develop delirium or other unwanted side effects from additional steroids such as hyperglycemia, additional fluid retention. Agree with continuing antibiotics pending culture results and clinical improvement, nebulized bronchodilators and additional efforts for pulmonary toilet including flutter valve and ambulation as tolerated. Speech consulted with reports of occasional difficulty swallowing. She reports feeling much better since the brisk diuresis after Lasix given in the ER. Agree with holding additional n itropaste at this time given good result to Lasix and reported improvement in symptoms. DO Eric
[2022-01-12] MEDS ORDERED: POTASSIUM CHLORIDE CRTAB 20 MEQ TABCR PO STA (14:04)
--- NOTE | 2022-01-12 14:05 | Electrocardiogram Report ---
Test Reason : Blood Pressure : / mmHG Vent. Rate : 077 BPM Atrial Rate : 077 BPM P-R Int : 142 ms QRS Dur : 096 ms QT Int : 444 ms P-R-T Axes : 066 045 059 degrees QTc Int : 502 ms Normal sinus rhythm Possible Left atrial enlargement Prolonged QT Abnormal ECG When compared with ECG of 13-DEC-2021 22:39, No significant change was found Confirmed by Scott Cade ([id number]) on 01/12/2022 2:05:27 PM Referred By: REFERRED SELF Confirmed By:Scott Cade
[2022-01-12] MEDS ORDERED: ACETAMINOPHEN 325 MG TAB PO PRN (14:44)
[2022-01-12] MEDS ORDERED: PROMETHAZINE HCL 6.25 MG in SODIUM CHLORIDE 0.9% 50 ML IV PRN (14:44)
[2022-01-12] MEDS ORDERED: MAGNESIUM HYDROXIDE SUSP 30 ML UDC PO ONE (14:44)
[2022-01-12] MEDS ORDERED: MAGNESIUM HYDROXIDE SUSP 30 ML UDC PO PRN (14:44)
[2022-01-12] MEDS ORDERED: POLYETHYLENE (MIRALAX) 17 GM PACK PO PRN (14:44)
[2022-01-12] MEDS ORDERED: ASPIRIN 81 MG CHEW PO ONE (15:02)
[2022-01-12] MEDS: DOXYCYCLINE HYCLATE 100 MG in DEXTROSE 5% 100 ML IV SCH (15:31)
[2022-01-12] MEDS: ENOXAPARIN INJ 30 MG/0.3 ML SYR SQ SCH (15:35)
[2022-01-12] MEDS: LORazepam 0.5 MG TAB PO SCH ×2 (15:44→20:20)
[2022-01-12] MEDS: CALCIUM CARBONATE 1250MG TAB PO SCH (15:48)
[2022-01-12] MEDS: IPRATROPIUM BROMIDE NEB SOLN 0.02% 2.5 ML VIAL INH SCH ×2 (15:57→19:11)
[2022-01-12] MEDS: LEVALBUTEROL 1.25MG/0.5ML NEB INH SCH ×2 (15:57→19:11)
[2022-01-12 16:15] LABS: Troponin I High Sensitivity 34.1 pg/ml (0-14)
[2022-01-12 16:20] LABS: Magnesium 1.7 mg/dl (1.7-2.4)
[2022-01-12] MEDS ORDERED: XOPENEX/ATROVENT 1.25mg/0.5MG NEB COMBO NEB SCH (19:00)
[2022-01-12] MEDS: CEFEPIME 2,000 MG in SYRINGE 0 ML IV SCH (20:20)
[2022-01-12] MEDS: DOCUSATE SODIUM 100 MG CAP PO SCH (20:20)
[2022-01-12] MEDS: POTASSIUM CHLORIDE CRTAB 20 MEQ TABCR PO SCH (20:20)
[2022-01-12] MEDS: MONTELUKAST SODIUM 10 MG TABLET PO SCH (20:21)
[2022-01-12] MEDS: DONEPEZIL HCL 5 MG TAB PO SCH (20:21)
[2022-01-12] MEDS: METOPROLOL TARTRATE 25 MG TAB PO SCH (20:21)
[2022-01-12] MEDS: FERROUS SULFATE 325 MG TAB PO SCH (20:22)
[2022-01-12] MEDS: guaiFENesin 600 MG TABCR PO SCH (20:22)
[2022-01-12] MEDS: PANTOprazole 40 MG TAB PO SCH (20:22)
[2022-01-12] MEDS ORDERED: methylPREDNISolone 40 MG in SYRINGE 0 ML IV SCH (21:00)
[2022-01-13] MEDS: IPRATROPIUM BROMIDE NEB SOLN 0.02% 2.5 ML VIAL INH SCH ×4 (00:10→18:59)
[2022-01-13] MEDS: LEVALBUTEROL 1.25MG/0.5ML NEB INH SCH ×4 (00:10→18:59)
[2022-01-13] MEDS: DOXYCYCLINE HYCLATE 100 MG in DEXTROSE 5% 100 ML IV SCH ×2 (03:26→15:51)
[2022-01-13 04:04] LABS: Hematocrit (blood only) 30.2 % (34.1-44.9); Hemoglobin 9.3 g/dl (12.0-16.0); Mean Corpuscular Hemoglobin 26.1 pg (25.0-34.0); Mean Corpuscular Hgb Conc 30.8 g/dL (32.0-36.0); Mean Corpuscular Volume 84.8 fL (80.0-100.0); Mean Platelet Volume 10.5 fL (9.4-12.3); Platelet Count 200 K/uL (130-400); RDW Standard Deviation 80.5 fL (36.4-46.3); Red Blood Count 3.56 M/uL (3.93-5.22); White Blood Count 4.92 K/ul (4.8-10.8)
[2022-01-13 04:28] LABS: BUN Creatinine Ratio 35.2 (10-20); Calcium 8.5 mg/dl (8.5-10.1); Creatinine Clr Calc Pharmacy 40.3 ml/min; Est GFR (African American) 87.5 ml/min; Est GFR (Non-African American) 75.5 ml/min; Potassium 3.5 mmol/L (3.5-5.1)
[2022-01-13] MEDS: LORazepam 0.5 MG TAB PO SCH ×3 (06:15→20:26)
[2022-01-13] MEDS: UMECLIDINIUM/VILANTEROL 62.5/25MCG 7 PUFFS/INHALER INH SCH (08:57)
[2022-01-13] MEDS: DONEPEZIL HCL 5 MG TAB PO SCH ×2 (08:58→20:26)
[2022-01-13] MEDS: FERROUS SULFATE 325 MG TAB PO SCH ×2 (08:58→20:26)
[2022-01-13] MEDS: PANTOprazole 40 MG TAB PO SCH ×2 (08:58→20:27)
[2022-01-13] MEDS: METOPROLOL TARTRATE 25 MG TAB PO SCH ×2 (08:58→20:27)
[2022-01-13] MEDS: DOCUSATE SODIUM 100 MG CAP PO SCH ×2 (08:58→20:26)
[2022-01-13] MEDS: ASPIRIN 81 MG ECTAB PO SCH (08:58)
[2022-01-13] MEDS: CALCIUM CARBONATE 1250MG TAB PO SCH ×2 (08:58→16:24)
[2022-01-13] MEDS: guaiFENesin 600 MG TABCR PO SCH ×2 (08:58→20:26)
[2022-01-13] MEDS: SERTRALINE HCL 100 MG TABLET PO SCH (08:58)
[2022-01-13] MEDS: AMIODARONE 200 MG TAB PO SCH (08:58)
[2022-01-13] MEDS: FUROSEMIDE INJ 20 MG/2 ML VIAL IV SCH (09:04)
[2022-01-13] MEDS: CEFEPIME 2,000 MG in SYRINGE 0 ML IV SCH ×2 (09:04→20:27)
[2022-01-13] MEDS: POTASSIUM CHLORIDE CRTAB 20 MEQ TABCR PO SCH ×2 (09:06→20:26)
[2022-01-13] MEDS: LIDOCAINE 5% 1 PATCH TD SCH (09:07)
[2022-01-13] MEDS ORDERED: ACETYLCYSTEINE 10% INHAL SOLN 4 ML **DISPENSED BY RESP. INH SCH (10:30)
--- NOTE | 2022-01-13 11:52 | CT Scan Report ---
CT SCAN OF THE CHEST WITHOUT IV CONTRAST CLINICAL HISTORY: Hypoxia. Pneumonia. COMPARISON STUDY: Chest x-ray dated 01/12/2022. Chest CT dated 12/14/2021. TECHNIQUE: CT scan of the thorax was performed from the thoracic inlet to the upper abdomen. Images are reviewed in the axial, sagittal, and coronal planes. IV contrast was not administered for this ex amination as per the referring clinician. A dose lowering technique was utilized adhering to the emani Villarreal. The examination is degraded by motion artifact, as well as by streak artifact from the arms which could not be elevated above the chest. CT DOSE: 195.38 mGy.cm FINDINGS: Thyroid: Imaged portions of the thyroid gland are normal in size and attenuation. Thoracic aorta: There is atherosclerotic calcification of the thoracic into. There is ectasia of the ascending thoracic aorta which measures up to 3.8 cm in diameter. The remainder of the thoracic aorta is normal in caliber comment the arch demonstrates standard 3-vessel anatomy. Heart: The heart is mildly enlarged and without pericardial effusion. The mitral annulus is densely c alcified. The main pulmonary arteries appear dilated suggesting pulmonary artery hypertension. Lungs and pleural spaces: Evaluation of the lung parenchyma is significantly compromised by motion ar tifact. There are small right and moderate left pleural effusions with associated consolidation. Fibr otic change at the right apex is similar to previous and likely related to previous radiation treatme nt. Mild patchy airspace consolidation is seen in the left upper lobe. Segmental atelectasis is noted in the lingula. Foci of intraluminal debris/mucus plugging are seen in the left lower lobe airways. There are scattered calcified granulomas. Mediastinum: Grossly clear but not well assessed. Jackie: Not well assessed without IV contrast. Axillae: There is no axillary lymphadenopathy. Upper abdomen: There are calcified splenic granulomas. Nodularity of the left adrenal gland is is lik sj unchanged. Partially visualized upper abdominal viscera is otherwise grossly unremarkable. Skeletal structures: The skeletal structures are osteopenic. There are compression deformities of T11 and T12 with evidence of previous vertebroplasty, retropulsed fragments, and corresponding hyperkyph osis. This is similar to previous. Chronic changes within the right upper ribs is similar to previous . No lytic or blastic bony lesions it is clearly seen. Advanced arthritic change is seen in the shoul ders. Soft tissues: There is evidence of previous left mastectomy. IMPRESSION: 1. Significantly streak and motion compromised examination. 2. Cardiomegaly. 3. Left larger than right pleural effusions with dependent consolidation. These have modestly increas ed in size as compared to 12/14/2021. 4. Mild patchy airspace consolidation is seen in the left upper lobe. Correlate clinically for eviden ce of pneumonia/aspiration pneumonitis. 5. Fibrotic change at the right apex is similar to previous and likely related to previous radiation treatment. 6. Additional findings as above. ACT 112: Negative or not required by law. Electronically signed by: Ab Boston M.D. 01/13/2022 11:50 AM
--- NOTE | 2022-01-13 11:55 | Electrocardiogram Report ---
Test Reason : Blood Pressure : / mmHG Vent. Rate : 078 BPM Atrial Rate : 078 BPM P-R Int : 134 ms QRS Dur : 100 ms QT Int : 422 ms P-R-T Axes : 075 070 065 degrees QTc Int : 481 ms Normal sinus rhythm Left atrial enlargement Incomplete right bundle branch block Peaked T waves(consider ischemia,hyperkalemia,etc.) Borderline ECG When compared with ECG of 12-JAN-2022 09:15, No significant change was found Confirmed by Nathanael Wright ([id number]) on 01/13/2022 11:55:19 AM Referred By: REFERRED SELF Confirmed By:Nathanael Wright
--- NOTE | 2022-01-13 12:38 | Pulmonary Consultation ---
Date of Consultation January 13, 2022 Assessment & Plan (1) Acute respiratory failure with hypoxia: (2) Acute bronchitis: (3) Asthma-COPD overlap syndrome: (4) Abnormal chest CT: (5) Adenocarcinoma of lung: (6) Pleural effusion: Plan CT chest 01/13/2022 personally reviewed: Right upper lobe lesion appreciated, left upper lobe granuloma Bilateral pleural effusion, small on the right, moderate on the left No significant mediastinal lymphadenopathy --Acute hypoxic respiratory failure Likely secondary to HFpEF Continue with diuretics to keep the patient negative balance BiPAP nightly and as needed shortness of breath Procalcitonin 0.13 COVID-19 NAAT negative --Bilateral pleural effusion Moderate on the left, small on the right History of thoracentesis on 06/25/2021 on the right side which was lymphocytic Effusion seems to have improved compared to 11/12/2021 --Asthma-COPD On Stiolto at home PFT 09/19/2020: Moderate obstructive lung dysfunction, air trapping, normal DLCO Plan: Continue with diuresis, keep the patient negative balance at least -800-1000 mL a day Give another 20 mg of Lasix in the evening We will repeat a chest x-ray in 48 hours. If patient is still significant pleural effusion at that time then consideration of thoracentesis on the left side will be made Start the patient on hypertonic saline nebulized along with budesonide nebulized twice a day Mucinex and flutter valve. I will add chest vest therapy on top of that Case discussed with Dr. Del Cid Please note the above document was generated using voice recognition software. It may contain grammatical, syntax or spelling errors.Any formal questions or concerns about the content, text or information contained within the body of this dictation should be directly addressed to the provider for clarification. History of Present Illness Attending Physician: Sae Del Cid MD History of Present Illness 89-year-old female presented to the hospital with worsening shortness of breath going on for approximately 1 week Past medical history: Left-sided breast cancer s/p mastectomy and radiation, right upper lobe lesion s/p empiric radiation, COPD Patient tested for RSV 01/08/2022. Was given prednisone taper, Augmentin and doxycycline At the time of examination patient was saturating 98% on 2 L nasal cannula. I w ent down to 1 L She says she is feeling better since coming to the hospital She is coughing but is unable to bring up any phlegm Denies any hemoptysis Has been using her inhalers at home No dysuria, no diarrhea No headache, no nausea vomiting No chest pain Social history: Lifetime non-smoker. Used to work in a [employer] Denies any history of asthma in the family Allergies Allergy/AdvReac Type Severity Reaction Status Date / Time bee venom protein (honey bee) Allergy Severe ANAPHYLAXIS Verified 12/14/21 01:31 Home Medications Medication Instructions Recorded Confirmed Type aspirin 81 mg tablet,delayed 81 mg PO QAM 04/30/21 01/12/22 History release montelukast 10 mg tablet 10 mg PO HS 04/30/21 01/12/22 History tiotropium 2.5 mcg-olodaterol 2.5 1 puff inhalation QAM 04/30/21 01/12/22 History mcg/actuation mist for inhalation (Stiolto Respimat) calcium carbonate 500 mg calcium 500 mg PO BID 06/24/21 01/12/22 History (1,250 mg) chewable tablet docusate sodium 100 mg capsule 100 mg PO BID 06/24/21 01/12/22 History (Colace) donepezil 5 mg tablet 5 mg PO BID 06/24/21 01/12/22 History lorazepam 0.5 mg tablet 0.5 mg PO TID 06/24/21 01/12/22 History sertraline 100 mg tablet 200 mg PO QAM 07/06/21 01/12/22 History potassium chloride 10 mEq 10 meq PO DAILY #30 tabs 07/09/21 01/12/22 Rx tablet,extended release(part/cryst) amiodarone 200 mg tablet 200 mg PO QAM 10/02/21 01/12/22 History metoprolol tartrate 25 mg tablet 12.5 mg PO BID 10/02/21 01/12/22 History pantoprazole 40 mg tablet,delayed 40 mg PO BID 10/02/21 01/12/22 History release acetaminophen 325 mg tablet 650 mg PO Q4H PRN PAIN/FEVER 12/14/21 01/12/22 History (Tylenol) epinephrine 0.3 mg/0.3 mL 0.3 mg IM DIRECTED PRN Allergic 12/14/21 01/12/22 History injection, auto-injector (EpiPen) Reaction guaifenesin 200 mg tablet 400 mg PO TID PRN CHEST CONGESTION 12/14/21 01/12/22 History lidocaine 5 % topical patch 1 patch transdermal QAM 12/14/21 01/12/22 History ferrous sulfate 325 mg (65 mg 325 mg PO BID 30 days #60 tabs 12/16/21 01/12/22 Rx iron) tablet furosemide 20 mg tablet 20 mg PO DAILY 12/16/21 01/12/22 History levalbuterol HCl 1.25 mg/3 mL 1.25 mg (3 mL) NEB Q4H PRN 12/16/21 01/12/22 Rx solution for nebulization shortness of breath or wheezing #36 mL albuterol sulfate 90 mcg/actuation 2 puff inhalation Q4H PRN 01/12/22 01/12/22 History aerosol inhaler Shortness Of Breath Or Wheezing amoxicillin 875 mg-potassium 1 tab PO BID 01/12/22 01/12/22 History clavulanate 125 mg tablet prednisone 10 mg tablet 10 mg PO UD 01/12/22 01/12/22 History Patient History Medical History Abnormal CT of the chest Acute on chronic heart failure with preserved ejection fraction Anemia of chronic disease Anxiety Anxiety Asthma USING RESCUE INHALER FREQUENTLY/DAILY Asthma-COPD overlap syndrome Cancer BREAST CANCER-LEFT MASTECTOMY Chronic obstructive pulmonary disease COPD (chronic obstructive pulmonary disease) COVID-19 Deep vein thrombosis 15 YEARS AGO S/P LEG SURGERY Degenerative disc disease Dysphagia HX ESOPHAGEAL STRETCHING Fall GERD (gastroesophageal reflux disease) History of pulmonary embolism HTN (hypertension) Hypertension Osteoarthritis PAF (paroxysmal atrial fibrillation) Prolapsed bladder Pulmonary nodule, right Rectal bleeding Senile degeneration of brain T12 burst fracture Surgical History History of cataract surgery RT/LEFT History of colonoscopy History of esophagogastroduodenoscopy (EGD) History of mastectomy LEFT (NO BP/LAB DRAWS) History of tonsillectomy History of tooth extraction History of total hysterectomy with bilateral salpingo-oophorectomy (BSO) History of total knee replacement LEFT/RT Family History Other Alzheimer disease Stroke Social History Smoking Status: Never smoker Second Hand Exposure: Yes (AT WORK); Do You Dip or Chew Tobacco: No; Tobacco Cessation Education Requested by Patient: No Hx Alcohol Use: No Hx Substance Use: No Preferred Language: Beninese Communication Ability: Effective Hurl Shaker Required: No Beliefs That Will Affect Care: None marital status: / Current Living Situation: Personal Care Facility Current Living Situation Comment: [facility] How many Children do You have: 1 Other Information That Helps Us Care for You: No Feels Safe at Home: Yes Safety Concerns: Feels Safe At This Time Childhood Exposure to Second-Hand Smoke: Yes Dental Care, Regularly: Yes Assistive Devices: Walker Assistive Devices Comment: [employer] AT [employer] Review of Systems Review of Systems: All systems reviewed & are unremarkable except as noted in HPI & below Physical Exam Physical Exam: Constitutional: No acute distress HEENT: EOMI, PERRLA Respiratory system: Decreased air entry bilaterally, positive rhonchi-more on the right side, positive crackles bilateral lower lobes CVS: S1-S2 positive, no murmurs or gallops Abdomen: Soft, nontender, nondistended, positive bowel sounds x4 Extremities: +2 pulses bilaterally radialis/ dorsalis pedis, no cyanosis, no edema Neuro: Awake alert oriented x3 Psych: Normal mood and affect G/U: Positive Her Skin: no rashes, warm and dry Lymphatic: no cervical or axillary lymphadenopathy Results & Data Results & Data ([facility]) Vital Signs (Past 12 Hours) Vital Signs Temp Pulse Pulse Pulse Resp BP Pulse Ox 01/13/22 11:43 36.8 C 73 20 104/50 L 100 01/13/22 08:17 01/13/22 07:59 76 01/13/22 07:40 78 18 97 01/13/22 07:29 36.9 C 79 19 157/84 H 100 01/13/22 02:27 36.9 C 74 18 149/76 H 99 O2 Del Method O2 Flow Rate 01/13/22 11:43 Nasal Cannula 2 01/13/22 08:17 Room Air 01/13/22 07:59 01/13/22 07:40 Nasal Cannula 1.5 01/13/22 07:29 Nasal Cannula 2 01/13/22 02:27 Nasal Cannula 2 Laboratory Results 01/13/22 03:42 01/13/22 03:42 PG Care Time/CCT Total # of Minutes Spent Total Time Spent with Patient: Total time spent is greater than 50% in coordination of care (as documented) at patient's floor/unit and/or counseling patient: Coding Level of Care Code 55388 Initial Inpt Care Lvl 3 Diagnoses Acute respiratory failure with hypoxia J96.01 Acute bronchitis J20.9 Asthma-COPD overlap syndrome J44.[address] R93.89 Adenocarcinoma of lung C34.90 Pleural effusion J90
--- NOTE | 2022-01-13 14:34 | Hospitalist Progress Note ---
Date of Service January 13, 2022 Assessment & Plan (1) Acute respiratory failure: (2) RSV infection: (3) Acute exacerbation of chronic obstructive pulmonary disease: Plan: Possible pneumonia per admitting [facility] [place] with addendum: Patient is 89 y/o F with PMH left breast cancer s/p left radical mastectomy, radiation pneumonitis, h/o right upper lobe lesion concerning for possible carcinoma s/p empiric radiation, asthma, COPD, HTN, PAF, anemia of chronic disea se, and others listed below presented to ER for worsening SOB, cough. URI symptoms x 1 week. +RSV 01/08/22 outpatient. Given prednisone taper, albuterol, one dose of Ceftriaxone 1gm IM. 01/11/22 started Augmentin BID x 10 days for possible superimposed pneumonia on CXR. 1 month ago hospitalization and treated for acute bronchitis, possible pneumonia, discharged on Augmentin and doxycycline In ER afebrile, O2 sat noted to drop to 70% on room air with ambulation, 98% on 3 L via nasal cannula. Other vitals stable. No leukocytosis. Lactate WNL. Negative rapid COVID-19. CXR: Small left pleural effusion with left basilar opacity which could reflect consolidation or atelectasis History negative MRSA swab 12/14/2021 Blood cultures pending Procalcitonin pending Sputum culture pending In ER given cefepime Possible pneumonia, continue cefepime, doxycycline Xopenex/Atrovent nebs Incentive spirometer Supplemental oxygen Will hold on steroids, reassess throughout hospital course Mucinex Continue home inhalers CBC in a.m. 01/13 CT chest: 1. Significantly streak and motion compromised examination. 2. Cardiomegaly. 3. Left larger than right pleural effusions with dependent consolidation. These have modestly increased in size as compared to 12/14/2021. 4. Mild patchy airspace consolidation is seen in the left upper lobe. Correlate clinically for evidence of pneumonia/aspiration pneumonitis. 5. Fibrotic change at the right apex is similar to previous and likely related to previous radiation treatment. 6. Additional findings as above. add Mucomyst continue Nebs QID continue Cefepime + Doxycycline VFSS tomorrow sputum culture: pending Pulm Consulted (4) Acute heart failure with preserved ejection fraction: Plan: History Echo 06/25/2021: EF: 65-70%, mild concentric LVH, left atrium severely dilated, severe mitral annular calcification, moderate MR, mild MS, mild TR, severe pulmonary hypertension, small right pleural effusion CXR: Mild interstitial pulmonary edema. Small left pleural effusion with left basilar opacity which could reflect consolidation or atelectasis. BNP: 1676 In ER nitro paste placed and given lasix 20mg IV. Initial diuresis of 1100ml in Her bag Hold home oral Lasix 20mg daily. Lasix 20 mg IV daily. Monitor further diuresis Monitor I's and O's, daily weight, low-sodium diet Echo BMP in am 01/03 increased Lasix to 20mg IV BID (5) Hypokalemia: Plan: 01/13 K 3.5 (6) Elevated troponin: Plan: Reported midsternal chest pain this morning, resolved after treatment in ER Troponin: 28.9. EKG without acute ST changes Likely demand ischemia Trend troponin Continue aspirin Echo EKG in am 01/13 trending down likely Demand Ischemia (7) PAF (paroxysmal atrial fibrillation): Plan: Current sinus rhythm Continue amiodarone, metoprolol tartrate (8) HTN (hypertension): Plan: Continue losartan, metoprolol tartrate (9) Prolonged QT interval: Plan: Qtc: 502 Monitor, repeat EKG in am May need to adjust sertraline, donezepil 01/13 QTc 481 (10) Senile degeneration of brain: Plan: Continue donezepil (11) Anemia of chronic disease: Plan: Hgb: 10.7 Continue PPI, ferrous sulfate (12) Breast cancer, left: Plan: S/P left mastectomy H/O of lung carcinoma s/p radiation. With radiation pneumonitis DVT Prophylaxis Lovenox SQ DNR/DNI as per discussion with pt Follows with Dr Rodriguez for routine care (13) Shingles: Plan: Rash with lesions that are crusted over and dry. Recent history of antivirals two weeks ago, and she denies any pain. Keep rash covered and will communicate to place a sign up for anyone who has not been previously vaccinated or has a risk of ayesha VZV. Admission and Anticipated Discharge Date Admission Date: January 12, 2022 Subjective ff up for hypoxia, pneumonia, CHF etc seen resting in bed, comfortable on 4L NC states she feels somewhat improved compared to yesterday still has dry cough no chest pain no fever/chills no other symptoms Review of Systems Review of Systems: all noted and negative except for above Physical Exam Physical Exam: General- oriented x 3, not in distress, speaks in sentences with no effort or accessory muscle use Head- atraumatic Eyes- PERRL, EOMI, anicteric ENT- oropharynx clear Neck- supple, mild JVD, no adenopathy, no thyromegaly; carotids +2/2, no bruits appreciated Lungs- (+) diffuse rales/rhonchi BL Heart- normal rate, regular rhythm; no murmur, no gallop, no rub appreciated Abdomen- normal bowel sounds, nondistended, soft, nontender, no masses or hepatosplenomegaly Extremities- no pretibial edema, no calf tenderness; peripheral pulses intact Neuro- alert, oriented x 3; CN 2-12 grossly intact; motor 5/5 bilaterally;sensation 100% on all extremities; no other gross focal neurologic deficits Skin- warm & dry Results & Data Results & Data ([facility]) Vital Signs (Past 12 Hours) Vital Signs Temp Pulse Pulse Resp BP Pulse Ox O2 Del Method 01/13/22 12:58 72 22 98 Nasal Cannula 01/13/22 11:43 36.8 C 73 20 104/50 L 100 Nasal Cannula 01/13/22 08:17 Room Air 01/13/22 07:59 76 01/13/22 07:40 78 18 97 Nasal Cannula 01/13/22 07:29 36.9 C 79 19 157/84 H 100 Nasal Cannula O2 Flow Rate 01/13/22 12:58 4 01/13/22 11:43 2 01/13/22 08:17 01/13/22 07:59 01/13/22 07:40 1.5 01/13/22 07:29 2 all noted and reviewed including below
[2022-01-13] MEDS: ENOXAPARIN INJ 30 MG/0.3 ML SYR SQ SCH (16:23)
[2022-01-13] MEDS ORDERED: FUROSEMIDE INJ 20 MG/2 ML VIAL IV ONE (18:00)
[2022-01-13] MEDS: SODIUM CHLOR 7% 4 ML NEB NEB SCH (18:59)
[2022-01-13] MEDS: BUDESONIDE 0.5 MG/2 ML VIAL (PULMICORT) NEB SCH (18:59)
[2022-01-13] MEDS: MONTELUKAST SODIUM 10 MG TABLET PO SCH (20:27)
[2022-01-14] MEDS: LEVALBUTEROL 1.25MG/0.5ML NEB INH SCH ×4 (00:39→20:06)
[2022-01-14] MEDS: IPRATROPIUM BROMIDE NEB SOLN 0.02% 2.5 ML VIAL INH SCH ×4 (00:39→20:06)
[2022-01-14] MEDS: DOXYCYCLINE HYCLATE 100 MG in DEXTROSE 5% 100 ML IV SCH ×2 (04:53→14:58)
[2022-01-14] MEDS: LORazepam 0.5 MG TAB PO SCH ×3 (06:00→21:13)
[2022-01-14 06:47] LABS: Creatinine Clr Calc Pharmacy 37.1 ml/min; Est GFR (African American) 78.1 ml/min; Est GFR (Non-African American) 67.4 ml/min
[2022-01-14] MEDS: BUDESONIDE 0.5 MG/2 ML VIAL (PULMICORT) NEB SCH ×2 (06:56→20:06)
[2022-01-14] MEDS: SODIUM CHLOR 7% 4 ML NEB NEB SCH ×2 (06:56→20:06)
--- NOTE | 2022-01-14 07:42 | Pulmonology Progress Note ---
Date of Service January 14, 2022 Assessment & Plan (1) Acute respiratory failure with hypoxia: (2) Acute bronchitis: (3) Asthma-COPD overlap syndrome: (4) Abnormal chest CT: (5) Adenocarcinoma of lung: (6) Pleural effusion: Plan CT chest 01/13/2022 personally reviewed: Right upper lobe lesion appreciated, left upper lobe granuloma Bilateral pleural effusion, small on the right, moderate on the left No significant mediastinal lymphadenopathy --Acute hypoxic respiratory failure Likely secondary to HFpEF Continue with diuretics to keep the patient negative balance BiPAP nightly and as needed shortness of breath Procalcitonin 0.13 COVID-19 NAAT negative --Bilateral pleural effusion Moderate on the left, small on the right History of thoracentesis on 06/25/2021 on the right side which was lymphocytic Effusion seems to have improved compared to 11/12/2021 --Asthma-COPD On Stiolto at home PFT 09/19/2020: Moderate obstructive lung dysfunction, air trapping, normal DLCO Plan: In/out: -887, urine output 2.4 L Continue with diuresis, give another Lasix 20 mg at 6 PM We will consider starting the patient on CoughAssist given that she is unable to bring up any phlegm. Okay to DC cefepime. Continue with doxycycline for total of 5 days Case was discussed with RN Please note the above document was generated using voice recognition software. It may contain grammatical, syntax or spelling errors.Any formal questions or concerns about the content, text or information contained within the body of this dictation should be directly addressed to the provider for clarification. Admission and Anticipated Discharge Date Admission Date: January 12, 2022 Subjective Patient seen and examined at bedside. No acute distress, no adverse events overnight. She was saturating 97% on 2 L nasal cannula at rest She says she is feeling better since coming to the hospital Has been using flutter valve but is still not bringing up any phlegm Denies any nausea vomiting No headache, no blurry vision Fair appetite Review of Systems Review of Systems: All systems reviewed & are unremarkable except as noted in Subjective Physical Exam Physical Exam: Constitutional: No acute distress HEENT: EOMI, PERRLA Respiratory system: Decreased air entry bilaterally, positive rhonchi-more on the right side, positive crackles bilateral lower lobes CVS: S1-S2 positive, no murmurs or gallops Abdomen: Soft, nontender, nondistended, positive bowel sounds x4 Extremities: +2 pulses bilaterally radialis/ dorsalis pedis, no cyanosis, no edema Neuro: Awake alert oriented x3 Psych: Normal mood and affect G/U: Positive Her Skin: no rashes, warm and dry Lymphatic: no cervical or axillary lymphadenopathy Results & Data Results & Data ([facility]) Vital Signs (Past 12 Hours) Vital Signs Temp Pulse Pulse Pulse Resp BP Pulse Ox 01/14/22 06:59 75 20 88 L 01/14/22 03:35 36.3 C L 69 18 141/55 H 100 01/14/22 00:41 68 22 96 01/14/22 00:00 68 01/13/22 23:26 36.9 C 68 18 127/66 96 01/13/22 19:51 70 18 96 01/13/22 19:44 36.7 C 72 18 127/68 93 O2 Del Method O2 Flow Rate 01/14/22 06:59 Room Air 01/14/22 03:35 Nasal Cannula 2 01/14/22 00:41 Nasal Cannula 3 01/14/22 00:00 01/13/22 23:26 Room Air 01/13/22 19:51 Nasal Cannula 1 01/13/22 19:44 Room Air Laboratory Results 01/13/22 03:42 01/14/22 05:50 PG Care Time/CCT Total # of Minutes Spent Total Time Spent with Patient: Total time spent is greater than 50% in coordination of care (as documented) at patient's floor/unit and/or counseling patient: Coding Level of Care Code 94632 Subseq Hosp Care Lvl 2 Diagnoses Acute respiratory failure with hypoxia J96.01 Acute bronchitis J20.9 Asthma-COPD overlap syndrome J44.[address] R93.89 Adenocarcinoma of lung C34.90 Pleural effusion J90
[2022-01-14] MEDS: FERROUS SULFATE 325 MG TAB PO SCH ×2 (08:44→21:15)
[2022-01-14] MEDS: SERTRALINE HCL 100 MG TABLET PO SCH (08:45)
[2022-01-14] MEDS: ASPIRIN 81 MG ECTAB PO SCH (08:45)
[2022-01-14] MEDS: METOPROLOL TARTRATE 25 MG TAB PO SCH ×2 (08:45→21:13)
[2022-01-14] MEDS: AMIODARONE 200 MG TAB PO SCH (08:45)
[2022-01-14] MEDS: CALCIUM CARBONATE 1250MG TAB PO SCH ×2 (08:45→16:20)
[2022-01-14] MEDS: POTASSIUM CHLORIDE CRTAB 20 MEQ TABCR PO SCH ×2 (08:46→21:13)
[2022-01-14] MEDS: DOCUSATE SODIUM 100 MG CAP PO SCH ×2 (08:46→21:14)
[2022-01-14] MEDS: DONEPEZIL HCL 5 MG TAB PO SCH ×2 (08:46→21:15)
[2022-01-14] MEDS: guaiFENesin 600 MG TABCR PO SCH ×2 (08:46→21:13)
[2022-01-14] MEDS: PANTOprazole 40 MG TAB PO SCH ×2 (08:46→21:13)
[2022-01-14] MEDS: UMECLIDINIUM/VILANTEROL 62.5/25MCG 7 PUFFS/INHALER INH SCH (08:46)
[2022-01-14] MEDS: LIDOCAINE 5% 1 PATCH TD SCH (08:47)
[2022-01-14] MEDS: FUROSEMIDE INJ 20 MG/2 ML VIAL IV SCH (09:08)
[2022-01-14] MEDS: CEFEPIME 2,000 MG in SYRINGE 0 ML IV SCH (09:09)
[2022-01-14] MEDS: ENOXAPARIN INJ 30 MG/0.3 ML SYR SQ SCH (14:58)
--- NOTE | 2022-01-14 15:38 | Hospitalist Progress Note ---
Date of Service January 14, 2022 Assessment & Plan (1) Acute respiratory failure: (2) RSV infection: (3) Acute exacerbation of chronic obstructive pulmonary disease: Plan: Possible pneumonia [place] [facility] [place]: Patient is 89 y/o F with PMH left breast cancer s/p left radical mastectomy, radiation pneumonitis, h/o right upper lobe lesion concerning for possible carcinoma s/p empiric radiation, asthma, COPD, HTN, PAF, anemia of chronic disea se, and others listed below presented to ER for worsening SOB, cough. URI symptoms x 1 week. +RSV 01/08/22 outpatient. Given prednisone taper, albuterol, one dose of Ceftriaxone 1gm IM. 01/11/22 started Augmentin BID x 10 days for possible superimposed pneumonia on CXR. 1 month ago hospitalization and treated for acute bronchitis, possible pneumonia, discharged on Augmentin and doxycycline In ER afebrile, O2 sat noted to drop to 70% on room air with ambulation, 98% on 3 L via nasal cannula. Other vitals stable. No leukocytosis. Lactate WNL. Negative rapid COVID-19. CXR: Small left pleural effusion with left basilar opacity which could reflect consolidation or atelectasis History negative MRSA swab 12/14/2021 Blood cultures pending Procalcitonin pending Sputum culture pending In ER given cefepime Possible pneumonia, continue cefepime, doxycycline Xopenex/Atrovent nebs Incentive spirometer Supplemental oxygen Will hold on steroids, reassess throughout hospital course Mucinex Continue home inhalers CBC in a.m. 01/13 CT chest: 1. Significantly streak and motion compromised examination. 2. Cardiomegaly. 3. Left larger than right pleural effusions with dependent consolidation. These have modestly increased in size as compared to 12/14/2021. 4. Mild patchy airspace consolidation is seen in the left upper lobe. Correlate clinically for evidence of pneumonia/aspiration pneumonitis. 5. Fibrotic change at the right apex is similar to previous and likely related to previous radiation treatment. 6. Additional findings as above. 01/14 Continue Lasix 20 mg twice daily Continue hypertonic saline twice daily continue Nebs QID continue Doxycycline VFSS performed: Recommend moist diet with small more frequent meals, strict aspiration precautions sputum culture: Light normal aly Pulm Consulted, appreciate recommendations We will assess this week and if patient would need thoracentesis (4) Acute heart failure with preserved ejection fraction: Plan: History Echo 06/25/2021: EF: 65-70%, mild concentric LVH, left atrium severely dilated, severe mitral annular calcification, moderate MR, mild MS, mild TR, severe pulmonary hypertension, small right pleural effusion CXR: Mild interstitial pulmonary edema. Small left pleural effusion with left basilar opacity which could reflect consolidation or atelectasis. BNP: 1676 In ER nitro paste placed and given lasix 20mg IV. Initial diuresis of 1100ml in Her bag Hold home oral Lasix 20mg daily. Lasix 20 mg IV daily. Monitor further diures is Monitor I's and O's, daily weight, low-sodium diet Echo BMP in am 01/14 Management per above (5) Hypokalemia: Plan: 01/13 K 3.5 (6) Elevated troponin: Plan: Reported midsternal chest pain this morning, resolved after treatment in ER Troponin: 28.9. EKG without acute ST changes Likely demand ischemia Trend troponin Continue aspirin Echo EKG in am 01/14 trending down likely Demand Ischemia (7) PAF (paroxysmal atrial fibrillation): Plan: Current sinus rhythm Continue amiodarone, metoprolol tartrate (8) HTN (hypertension): Plan: Continue losartan, metoprolol tartrate (9) Prolonged QT interval: Plan: Qtc: 502 Monitor, repeat EKG in am May need to adjust sertraline, donezepil 01/13 QTc 481 (10) Senile degeneration of brain: Plan: Continue donezepil (11) Anemia of chronic disease: Plan: Hgb: 10.7 Continue PPI, ferrous sulfate (12) Breast cancer, left: Plan: S/P left mastectomy H/O of lung carcinoma s/p radiation. With radiation pneumonitis DVT Prophylaxis Lovenox SQ DNR/DNI as per discussion with pt Follows with Dr Rodriguez for routine care (13) Shingles: Plan: Rash with lesions that are crusted over and dry. Recent history of antivirals two weeks ago, and she denies any pain. Keep rash covered and will communicate to place a sign up for anyone who has not been previously vaccinated or has a risk of ayesha VZV. Admission and Anticipated Discharge Date Admission Date: January 12, 2022 Subjective Follow-up for acute hypoxia, COPD exacerbation, pleural effusion, etc. Seen resting in bed side chair, on 2 L of oxygen via nasal cannula States she feels about the same as yesterday Still has some dry cough, mild dyspnea No other symptoms Review of Systems Review of Systems: all noted and negative except for above Physical Exam Physical Exam: General- oriented x 3, not in distress, speaks in sentences with no effort or accessory muscle use Eyes- anicteric Neck- no JVD Lungs-positive diffuse crackles bilaterally No wheezing Heart- normal rate, regular rhythm; no murmurs Abdomen- normal bowel sounds, nondistended, soft, nontender Extremities- no pretibial edema, no calf tenderness Neuro- alert, oriented x 3; no gross focal neurologic deficits Skin- warm & dry Results & Data Results & Data ([facility]) Vital Signs (Past 12 Hours) Vital Signs Temp Pulse Pulse Resp BP Pulse Ox O2 Del Method 01/14/22 15:25 75 01/14/22 13:38 71 18 97 Nasal Cannula 01/14/22 11:00 36.8 C 66 18 121/70 96 Room Air 01/14/22 09:00 Room Air 01/14/22 08:00 36.8 C 70 18 130/63 95 Room Air 01/14/22 07:00 71 01/14/22 06:59 75 20 88 L Room Air 01/14/22 03:35 36.3 C L 69 18 141/55 H 100 Nasal Cannula O2 Flow Rate 01/14/22 15:25 01/14/22 13:38 1 01/14/22 11:00 2 01/14/22 09:00 01/14/22 08:00 01/14/22 07:00 01/14/22 06:59 01/14/22 03:35 2 all noted and reviewed including below
[2022-01-14] MEDS ORDERED: DOXYCYCLINE HYCLATE 100 MG CAP PO SCH (17:00)
[2022-01-14] MEDS ORDERED: FUROSEMIDE INJ 20 MG/2 ML VIAL IV ONE (18:00)
--- NOTE | 2022-01-14 18:23 | Fluoroscopy Report ---
VIDEO SWALLOW STUDY CLINICAL HISTORY: Aspiration. COMPARISON STUDY: Barium esophagram dated 11/26/2018. Fluoroscopy time: 3.2 minutes. FINDINGS: Fluoroscopic guidance is provided to the department by speech pathology and performing a vi wm swallow study. The patient consumed barium impregnated pudding, cracker with paste, thickened liq uids, and thin barium. Only swallowing mechanism was observed in real-time. No penetration or aspirat ion was seen with any of the sample textures. There was vallecular retention with the more solid text ures. Esophageal dysmotility and gastroesophageal reflux were observed during the examination. IMPRESSION: 1. No penetration or aspiration was seen with any of the sample textures. 2. Subjective dysmotility and gastroesophageal reflux. 3. See dedicated speech pathology report for detailed findings and recommendations. Dictated: 01/14/2022 3:10 PM Transcribed: 01/14/2022 5:25 PM Jaz [id number] [facility] Electronically signed by: Ab Boston M.D. 01/14/2022 6:22 PM
[2022-01-14] MEDS: MONTELUKAST SODIUM 10 MG TABLET PO SCH (21:13)
[2022-01-15] MEDS: LEVALBUTEROL 1.25MG/0.5ML NEB INH SCH ×4 (00:43→20:01)
[2022-01-15] MEDS: IPRATROPIUM BROMIDE NEB SOLN 0.02% 2.5 ML VIAL INH SCH ×4 (00:43→20:01)
[2022-01-15] MEDS: DOXYCYCLINE HYCLATE 100 MG in DEXTROSE 5% 100 ML IV SCH (03:31)
[2022-01-15 06:13] LABS: BUN Creatinine Ratio 31.4 (10-20); Calcium 8.6 mg/dl (8.5-10.1); Creatinine Clr Calc Pharmacy 41.4 ml/min; Est GFR (Non-African American) 76.8 ml/min; Potassium 4.1 mmol/L (3.5-5.1)
[2022-01-15] MEDS: LORazepam 0.5 MG TAB PO SCH ×3 (06:35→20:09)
[2022-01-15] MEDS: SODIUM CHLOR 7% 4 ML NEB NEB SCH ×2 (06:54→20:01)
[2022-01-15] MEDS: BUDESONIDE 0.5 MG/2 ML VIAL (PULMICORT) NEB SCH ×2 (06:54→20:02)
--- NOTE | 2022-01-15 07:25 | Pulmonology Progress Note ---
Date of Service January 15, 2022 Assessment & Plan (1) Acute respiratory failure with hypoxia: (2) Acute bronchitis: (3) Asthma-COPD overlap syndrome: (4) Abnormal chest CT: (5) Adenocarcinoma of lung: (6) Pleural effusion: Plan CT chest 01/13/2022 personally reviewed: Right upper lobe lesion appreciated, left upper lobe granuloma Bilateral pleural effusion, small on the right, moderate on the left No significant mediastinal lymphadenopathy --Acute hypoxic respiratory failure Likely secondary to HFpEF Continue with diuretics to keep the patient negative balance BiPAP nightly and as needed shortness of breath Procalcitonin 0.13 COVID-19 NAAT negative --Bilateral pleural effusion Moderate on the left, small on the right History of thoracentesis on 06/25/2021 on the right side which was lymphocytic Effusion seems to have improved compared to 11/12/2021 --Asthma-COPD On Stiolto at home PFT 09/19/2020: Moderate obstructive lung dysfunction, air trapping, normal DLCO Plan: In/out: - 920, urine output 1450 mL On bedside ultrasound she still has moderate left-sided pleural effusion. I gave her an option to have thoracentesis done today. She would like to wait till tomorrow before making the decision. Continue with diuresis, give another 20 mg of Lasix at 6 PM tonight Case was discussed with RN Please note the above document was generated using voice recognition software. It may contain grammatical, syntax or spelling errors.Any formal questions or concerns about the content, text or information contained within the body of this dictation should be directly addressed to the provider for clarification. Admission and Anticipated Discharge Date Admission Date: January 12, 2022 Subjective Patient seen and examined at bedside. No acute distress, no adverse events overnight. Patient has been using CoughAssist but she is not bringing up phlegm. She was saturating 88% on room air at the time of examination On putting nasal cannula 2 L she did go up to 95% Denies any chest pain, no headache, no nausea, no vomiting No significant change in her breathing compared to yesterday Review of Systems Review of Systems: All systems reviewed & are unremarkable except as noted in Subjective Physical Exam Physical Exam: Constitutional: No acute distress HEENT: EOMI, PERRLA Respiratory system: Decreased air entry bilaterally, positive rhonchi-more on the right side, positive crackles bilateral lower lobes, no wheeze CVS: S1-S2 positive, no murmurs or gallops Abdomen: Soft, nontender, nondistended, positive bowel sounds x4 Extremities: +2 pulses bilaterally radialis/ dorsalis pedis, no cyanosis, no edema Neuro: Awake alert oriented x3 Psych: Normal mood and affect G/U: Positive Her Skin: no rashes, warm and dry Lymphatic: no cervical or axillary lymphadenopathy Results & Data Results & Data ([facility]) Vital Signs (Past 12 Hours) Vital Signs Temp Pulse Resp BP Pulse Ox O2 Del Method O2 Flow Rate 01/15/22 06:54 80 17 95 Nasal Cannula 2 01/15/22 06:45 36.7 C 70 22 154/74 H 97 Nasal Cannula 1 01/15/22 03:45 36.5 C 77 17 142/77 H 100 Nasal Cannula 2 01/15/22 00:43 72 18 97 Nasal Cannula 2 01/14/22 23:26 36.6 C 75 19 145/64 H 99 Nasal Cannula 2 01/14/22 21:08 36.7 C 79 22 117/57 L 97 Nasal Cannula 2 01/14/22 20:29 Room Air 01/14/22 20:07 77 22 93 Room Air Laboratory Results 01/13/22 03:42 01/15/22 05:33 PG Care Time/CCT Total # of Minutes Spent Total Time Spent with Patient: Total time spent is greater than 50% in coordination of care (as documented) at patient's floor/unit and/or counseling patient: Coding Level of Care Code 10118 Subseq Hosp Care Lvl 2 Diagnoses Acute respiratory failure with hypoxia J96.01 Acute bronchitis J20.9 Asthma-COPD overlap syndrome J44.[address] R93.89 Adenocarcinoma of lung C34.90 Pleural effusion J90
--- NOTE | 2022-01-15 08:34 | Procedure Note ---
Procedure Note Date of Service January 15, 2022 Note Bedside Ultrasound: Lung: Right:-Small right-sided pleural effusion with dependent atelectasis, B-lines appreciated posteriorly Left:-Moderate left-sided pleural effusion with atelectasis, a lines anteriorly Abdomen: No ascites Please note the above document was generated using voice recognition software. It may contain grammatical, syntax or spelling errors.Any formal questions or concerns about the content, text or information contained within the body of this dictation should be directly addressed to the provider for clarification. Coding CPT Codes Pulmonary/Thoracic - Pulmonary and Thoracic: 56277 US, Chest, real time with imaging documentation ([id number]) [facility] Procedure Codes (Charges) Pulmonary/Thoracic Procedure 1: Pulmonary and Thoracic: 29398 US, Chest, real time with imaging documentation
[2022-01-15] MEDS: UMECLIDINIUM/VILANTEROL 62.5/25MCG 7 PUFFS/INHALER INH SCH (09:06)
[2022-01-15] MEDS: FERROUS SULFATE 325 MG TAB PO SCH ×2 (09:09→16:47)
[2022-01-15] MEDS: POTASSIUM CHLORIDE CRTAB 20 MEQ TABCR PO SCH ×2 (09:09→20:15)
[2022-01-15] MEDS: guaiFENesin 600 MG TABCR PO SCH ×2 (09:09→20:13)
[2022-01-15] MEDS: ASPIRIN 81 MG ECTAB PO SCH (09:09)
[2022-01-15] MEDS: SERTRALINE HCL 100 MG TABLET PO SCH (09:09)
[2022-01-15] MEDS: PANTOprazole 40 MG TAB PO SCH ×2 (09:09→20:14)
[2022-01-15] MEDS: DONEPEZIL HCL 5 MG TAB PO SCH ×2 (09:09→20:12)
[2022-01-15] MEDS: DOCUSATE SODIUM 100 MG CAP PO SCH ×2 (09:09→20:12)
[2022-01-15] MEDS: METOPROLOL TARTRATE 25 MG TAB PO SCH ×2 (09:09→20:10)
[2022-01-15] MEDS: AMIODARONE 200 MG TAB PO SCH (09:09)
[2022-01-15] MEDS: LIDOCAINE 5% 1 PATCH TD SCH (09:10)
[2022-01-15] MEDS: CALCIUM CARBONATE 1250MG TAB PO SCH ×2 (09:16→16:47)
[2022-01-15] MEDS: FUROSEMIDE INJ 20 MG/2 ML VIAL IV SCH (09:17)
--- NOTE | 2022-01-15 09:44 | XRay Report ---
XR chest 1V portable CLINICAL HISTORY: f/u COMPARISON STUDY: Chest radiograph January 12, 2022. Chest CT January 13, 2022. FINDINGS: There is no pneumothorax. Bilateral pleural effusions are similar to prior exam. Cardiomedi astinal silhouette is stable. Interstitial thickening has progressed. Right apical opacity is unchang ed. This may reflect scarring. Degenerative changes of both shoulders are incidentally noted. IMPRESSION: 1. Progression of interstitial thickening. This likely reflects pulmonary edema. A superimposed infec tious process could appear similar but is considered less likely. 2. No significant change in bilateral pleural effusions. ACT 112: Negative or not required by law. Electronically signed by: Kemal Elizabeth M.D. 01/15/2022 9:41 AM
[2022-01-15] MEDS ORDERED: DOXYCYCLINE HYCLATE 100 MG CAP PO ONE (12:30)
[2022-01-15] MEDS: ENOXAPARIN INJ 30 MG/0.3 ML SYR SQ SCH (15:04)
--- NOTE | 2022-01-15 16:56 | Hospitalist Progress Note ---
Date of Service January 15, 2022 Assessment & Plan (1) Acute respiratory failure: (2) RSV infection: (3) Acute exacerbation of chronic obstructive pulmonary disease: Plan: Possible pneumonia per admitting [facility] [place] with addendum: Patient is 89 y/o F with PMH left breast cancer s/p left radical mastectomy, radiation pneumonitis, h/o right upper lobe lesion concerning for possible carcinoma s/p empiric radiation, asthma, COPD, HTN, PAF, anemia of chronic disea se, and others listed below presented to ER for worsening SOB, cough. URI symptoms x 1 week. +RSV 01/08/22 outpatient. Given prednisone taper, albuterol, one dose of Ceftriaxone 1gm IM. 01/11/22 started Augmentin BID x 10 days for possible superimposed pneumonia on CXR. 1 month ago hospitalization and treated for acute bronchitis, possible pneumonia, discharged on Augmentin and doxycycline In ER afebrile, O2 sat noted to drop to 70% on room air with ambulation, 98% on 3 L via nasal cannula. Other vitals stable. No leukocytosis. Lactate WNL. Negative rapid COVID-19. CXR: Small left pleural effusion with left basilar opacity which could reflect consolidation or atelectasis History negative MRSA swab 12/14/2021 Blood cultures pending Procalcitonin pending Sputum culture pending In ER given cefepime Possible pneumonia, continue cefepime, doxycycline Xopenex/Atrovent nebs Incentive spirometer Supplemental oxygen Will hold on steroids, reassess throughout hospital course Mucinex Continue home inhalers CBC in a.m. 01/13 CT chest: 1. Significantly streak and motion compromised examination. 2. Cardiomegaly. 3. Left larger than right pleural effusions with dependent consolidation. These have modestly increased in size as compared to 12/14/2021. 4. Mild patchy airspace consolidation is seen in the left upper lobe. Correlate clinically for evidence of pneumonia/aspiration pneumonitis. 5. Fibrotic change at the right apex is similar to previous and likely related to previous radiation treatment. 6. Additional findings as above. 01/14 Continue Lasix 20 mg twice daily Continue hypertonic saline twice daily continue Nebs QID continue Doxycycline VFSS performed: Recommend moist diet with small more frequent meals, strict aspiration precautions sputum culture: Light normal aly Pulm Consulted, appreciate recommendations We will assess this week and if patient would need thoracentesis 01/15 Diuresing fairly Plan for thoracentesis tomorrow continue Lasix 20 mg IV daily 80 (4) Acute heart failure with preserved ejection fraction: Plan: History Echo 06/25/2021: EF: 65-70%, mild concentric LVH, left atrium severely dilated, severe mitral annular calcification, moderate MR, mild MS, mild TR, severe pulmonary hypertension, small right pleural effusion CXR: Mild interstitial pulmonary edema. Small left pleural effusion with left basilar opacity which could reflect consolidation or atelectasis. BNP: 1676 In ER nitro paste placed and given lasix 20mg IV. Initial diuresis of 1100ml in Her bag Hold home oral Lasix 20mg daily. Lasix 20 mg IV daily. Monitor further diuresis Monitor I's and O's, daily weight, low-sodium diet Echo BMP in am 01/15 Management per above (5) Hypokalemia: Plan: Potassium 4.1 (6) Elevated troponin: Plan: Reported midsternal chest pain this morning, resolved after treatment in ER Troponin: 28.9. 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 With radiation pneumonitis DVT Prophylaxis Lovenox SQ DNR/DNI as per discussion with pt Follows with Dr Rodriguez for routine care (13) Shingles: Plan: Rash with lesions that are crusted over and dry. Recent history of antivirals two weeks ago, and she denies any pain. Keep rash covered and will communicate to place a sign up for anyone who has not been previously vaccinated or has a risk of ayesha VZV. Admission and Anticipated Discharge Date Admission Date: January 12, 2022 Subjective Follow-up for acute hypoxic respiratory failure, pleural effusion, etc. Seen resting in bed, comfortable, on 2 L of oxygen via nasal cannula States she feels improved compared to yesterday Breathing seems to be improving Still having some dry cough No Chest pain No other symptoms Review of Systems Review of Systems: all noted and negative except for above Physical Exam Physical Exam: General- oriented x2, not in distress, speaks in sentences with no effort or accessory muscle use Eyes- anicteric Neck- no JVD Lungs-positive mild crackles bilaterally, no wheezing Heart- normal rate, regular rhythm; no murmurs Abdomen- normal bowel sounds, nondistended, soft, nontender Extremities- no pretibial edema, no calf tenderness Neuro- alert, oriented x 2; no gross focal neurologic deficits Skin- warm & dry Results & Data Results & Data ([facility]) Vital Signs (Past 12 Hours) Vital Signs Temp Pulse Resp BP Pulse Ox O2 Del Method O2 Flow Rate 01/15/22 12:51 78 18 98 Nasal Cannula 2 01/15/22 11:00 37.0 C 72 18 118/66 97 Nasal Cannula 1 01/15/22 08:00 Nasal Cannula 1 01/15/22 06:54 80 17 95 Nasal Cannula 2 01/15/22 06:45 36.7 C 70 22 154/74 H 97 Nasal Cannula 1 all noted and reviewed including below
[2022-01-15] MEDS ORDERED: FUROSEMIDE INJ 20 MG/2 ML VIAL IV ONE (18:00)
[2022-01-15] MEDS: MONTELUKAST SODIUM 10 MG TABLET PO SCH (20:11)
[2022-01-15] MEDS: DOXYCYCLINE HYCLATE 100 MG CAP PO SCH (20:15)
[2022-01-16] MEDS: LEVALBUTEROL 1.25MG/0.5ML NEB INH SCH ×5 (00:05→23:58)
[2022-01-16] MEDS: IPRATROPIUM BROMIDE NEB SOLN 0.02% 2.5 ML VIAL INH SCH ×5 (00:05→23:58)
[2022-01-16] MEDS: LORazepam 0.5 MG TAB PO SCH ×3 (05:40→20:29)
[2022-01-16 06:16] LABS: BUN Creatinine Ratio 35.8 (10-20); Calcium 8.8 mg/dl (8.5-10.1); Creatinine Clr Calc Pharmacy 40.9 ml/min; Est GFR (African American) 90.3 ml/min; Est GFR (Non-African American) 77.9 ml/min; Potassium 4.4 mmol/L (3.5-5.1)
[2022-01-16] MEDS: BUDESONIDE 0.5 MG/2 ML VIAL (PULMICORT) NEB SCH ×2 (06:48→19:40)
[2022-01-16] MEDS: SODIUM CHLOR 7% 4 ML NEB NEB SCH ×2 (06:48→19:40)
--- NOTE | 2022-01-16 07:13 | XRay Report ---
XR chest 1V portable CLINICAL HISTORY: f/u COMPARISON STUDY: Chest CT January 13, 2022 and chest radiograph January 15, 2022. FINDINGS: Bilateral pleural effusions are unchanged. There is no pneumothorax. Cardiomediastinal silh ouette is stable. Extensive mitral annular calcification is noted. Right apical opacity is unchanged and favors scarring. Interstitial thickening is unchanged. Severe degenerative changes of the right g lenohumeral joint are present. IMPRESSION: 1. No significant change in interstitial thickening which favors pulmonary edema. An infectious proce ss could appear similar but is considered less likely. 2. Stable bilateral pleural effusions. No pneumothorax. ACT 112: Negative or not required by law. Electronically signed by: Kemal Elizabeth M.D. 01/16/2022 7:11 AM
--- NOTE | 2022-01-16 07:29 | Pulmonology Progress Note ---
Date of Service January 16, 2022 Assessment & Plan (1) Acute respiratory failure with hypoxia: (2) Acute bronchitis: (3) Asthma-COPD overlap syndrome: (4) Abnormal chest CT: (5) Adenocarcinoma of lung: (6) Pleural effusion: Plan CT chest 01/13/2022 personally reviewed: Right upper lobe lesion appreciated, left upper lobe granuloma Bilateral pleural effusion, small on the right, moderate on the left No significant mediastinal lymphadenopathy --Acute hypoxic respiratory failure Likely secondary to HFpEF Continue with diuretics to keep the patient negative balance BiPAP nightly and as needed shortness of breath Procalcitonin 0.13 COVID-19 NAAT negative --Bilateral pleural effusion Moderate on the left, small on the right History of thoracentesis on 06/25/2021 on the right side which was lymphocytic Effusion seems to have improved compared to 11/12/2021 --Asthma-COPD On Stiolto at home PFT 09/19/2020: Moderate obstructive lung dysfunction, air trapping, normal DLCO Plan: In/out: -1.7 L, urine output 2049. -4.3 L since coming to the hospital Chest x-ray today shows improvement compared to the time of presentation She is making good amount of urine without any significant change in her creatinine/renal function. Continue with diuretics. Give another 20 mg of Lasix tonight I do not think there is any intervention for thoracentesis required given that there is improvement in patient's clinical status as well as pleural effusion. Continue with diuresis as she is tolerating it well. No further recommendation for pulmonary perspective. We will sign off Please call directly with any questions Case was discussed with RN and Dr. Del Cid Please note the above document was generated using voice recognition software. It may contain grammatical, syntax or spelling errors.Any formal questions or concerns about the content, text or information contained within the body of this dictation should be directly addressed to the provider for clarification. Admission and Anticipated Discharge Date Admission Date: January 12, 2022 Subjective Patient seen and examined at bedside. No acute distress, no adverse events overnight Patient was sitting on the chair. She was saturating 97% on 1 L nasal cannula. She said overall she is feeling a little bit better compared to when she came to the hospital She is still not bringing up any phlegm. Denies any chest pain, no nausea vomiting Fair appetite No headache, no blurry vision Review of Systems Review of Systems: All systems reviewed & are unremarkable except as noted in Subjective Physical Exam Physical Exam: Constitutional: No acute distress HEENT: EOMI, PERRLA Respiratory system: Decreased air entry bilaterally, positive rhonchi-more on the right side (improved), positive crackles bilateral lower lobes, no wheeze CVS: S1-S2 positive, no murmurs or gallops Abdomen: Soft, nontender, nondistended, positive bowel sounds x4 Extremities: +2 pulses bilaterally radialis/ dorsalis pedis, no cyanosis, no edema Neuro: Awake alert oriented x3 Psych: Normal mood and affect G/U: Positive Her Skin: no rashes, warm and dry Lymphatic: no cervical or axillary lymphadenopathy Results & Data Results & Data ([facility]) Vital Signs (Past 12 Hours) Vital Signs Temp Pulse Pulse Resp BP Pulse Ox O2 Del Method 01/16/22 06:50 73 18 97 Nasal Cannula 01/16/22 05:54 36.7 C 73 18 148/68 H 97 Room Air 01/15/22 20:46 Nasal Cannula 01/16/22 02:24 72 01/15/22 23:21 36.7 C 71 20 122/67 100 Nasal Cannula 01/16/22 00:05 70 18 96 Nasal Cannula 01/15/22 20:02 71 18 97 Nasal Cannula O2 Flow Rate 01/16/22 06:50 2 01/16/22 05:54 01/15/22 20:46 3 01/16/22 02:24 01/15/22 23:21 3 01/16/22 00:05 2 01/15/22 20:02 Laboratory Results 01/13/22 03:42 01/16/22 05:34 PG Care Time/CCT Total # of Minutes Spent Total Time Spent with Patient: Total time spent is greater than 50% in coordination of care (as documented) at patient's floor/unit and/or counseling patient: Coding Level of Care Code 03260 Subseq Hosp Care Lvl 2 Diagnoses Acute respiratory failure with hypoxia J96.01 Acute bronchitis J20.9 Asthma-COPD overlap syndrome J44.[address] R93.89 Adenocarcinoma of lung C34.90 Pleural effusion J90
[2022-01-16] MEDS: CALCIUM CARBONATE 1250MG TAB PO SCH ×2 (07:50→17:18)
[2022-01-16] MEDS: FERROUS SULFATE 325 MG TAB PO SCH ×2 (07:50→17:55)
[2022-01-16] MEDS: ASPIRIN 81 MG ECTAB PO SCH (08:30)
[2022-01-16] MEDS: AMIODARONE 200 MG TAB PO SCH (08:30)
[2022-01-16] MEDS: METOPROLOL TARTRATE 25 MG TAB PO SCH ×2 (08:31→20:33)
[2022-01-16] MEDS: DONEPEZIL HCL 5 MG TAB PO SCH ×2 (08:31→20:33)
[2022-01-16] MEDS: DOCUSATE SODIUM 100 MG CAP PO SCH ×2 (08:31→20:32)
[2022-01-16] MEDS: SERTRALINE HCL 100 MG TABLET PO SCH (08:31)
[2022-01-16] MEDS: PANTOprazole 40 MG TAB PO SCH ×2 (08:31→20:37)
[2022-01-16] MEDS: POTASSIUM CHLORIDE CRTAB 20 MEQ TABCR PO SCH ×2 (08:31→20:35)
[2022-01-16] MEDS: LIDOCAINE 5% 1 PATCH TD SCH (08:31)
[2022-01-16] MEDS: guaiFENesin 600 MG TABCR PO SCH ×2 (08:31→20:33)
[2022-01-16] MEDS: FUROSEMIDE INJ 20 MG/2 ML VIAL IV SCH (08:37)
[2022-01-16] MEDS: UMECLIDINIUM/VILANTEROL 62.5/25MCG 7 PUFFS/INHALER INH SCH (09:00)
[2022-01-16] MEDS: DOXYCYCLINE HYCLATE 100 MG CAP PO SCH ×2 (09:47→20:37)
--- NOTE | 2022-01-16 14:13 | Hospitalist Progress Note ---
Date of Service January 16, 2022 Delayed entry Date of service as per above Assessment & Plan (1) Acute respiratory failure: (2) RSV infection: (3) Acute exacerbation of chronic obstructive pulmonary disease: Plan: Possible pneumonia per [place] [facility] [place]um: Patient is 89 y/o F with PMH left breast cancer s/p left radical mastectomy, radiation pneumonitis, h/o right upper lobe lesion concerning for possible carcinoma s/p empiric radiation, asthma, COPD, HTN, PAF, anemia of chronic disease, and others listed below presented to ER for worsening SOB, cough. URI symptoms x 1 week. +RSV 01/08/22 outpatient. Given prednisone taper, albuterol, one dose of Ceftriaxone 1gm IM. 01/11/22 started Augmentin BID x 10 days for possible superimposed pneumonia on CXR. 1 month ago hospitalization and treated for acute bronchitis, possible pneumonia, discharged on Augmentin and doxycycline In ER afebrile, O2 sat noted to drop to 70% on room air with ambulation, 98% on 3 L via nasal cannula. Other vitals stable. No leukocytosis. Lactate WNL. Negative rapid COVID-19. CXR: Small left pleural effusion with left basilar opacity which could reflect consolidation or atelectasis History negative MRSA swab 12/14/2021 Blood cultures pending Procalcitonin pending Sputum culture pending In ER given cefepime Possible pneumonia, continue cefepime, doxycycline Xopenex/Atrovent nebs Incentive spirometer Supplemental oxygen Will hold on steroids, reassess throughout hospital course Mucinex Continue home inhalers CBC in a.m. 01/13 CT chest: 1. Significantly streak and motion compromised examination. 2. Cardiomegaly. 3. Left larger than right pleural effusions with dependent consolidation. These have modestly increased in size as compared to 12/14/2021. 4. Mild patchy airspace consolidation is seen in the left upper lobe. Correlate clinically for evidence of pneumonia/aspiration pneumonitis. 5. Fibrotic change at the right apex is similar to previous and likely related to previous radiation treatment. 6. Additional findings as above. 01/14 Continue Lasix 20 mg twice daily Continue hypertonic saline twice daily continue Nebs QID continue Doxycycline VFSS performed: Recommend moist diet with small more frequent meals, strict aspiration precautions sputum culture: Light normal aly Pulm Consulted, appreciate recommendations We will assess this week and if patient would need thoracentesis 01/15 Diuresing fairly Plan for thoracentesis tomorrow continue Lasix 20 mg IV daily 80 01/16 Discussed with pulmonary service As patient is diuresing, thoracentesis Continue Lasix 20 mg IV twice daily Monitor closely (4) Acute heart failure with preserved ejection fraction: Plan: History Echo 06/25/2021: EF: 65-70%, mild concentric LVH, left atrium severely dilated, severe mitral annular calcification, moderate MR, mild MS, mild TR, severe pulmonary hypertension, small right pleural effusion CXR: Mild interstitial pulmonary edema. Small left pleural effusion with left basilar opacity which could reflect consolidation or atelectasis. BNP: 1676 In ER nitro paste placed and given lasix 20mg IV. Initial diuresis of 1100ml in Her bag Hold home oral Lasix 20mg daily. Lasix 20 mg IV daily. Monitor further diuresis Monitor I's and O's, daily weight, low-sodium diet Echo BMP in am 01/16 Management per above (5) Hypokalemia: Plan: Potassium 4.1 (6) Elevated troponin: Plan: Reported midsternal chest pain this morning, resolved after treatment in ER Troponin: 28.9. 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 With radiation pneumonitis DVT Prophylaxis Lovenox SQ DNR/DNI as per discussion with pt Follows with Dr Rodriguez for routine care (13) Shingles: Plan: Rash with lesions that are crusted over and dry. Recent history of antivirals two weeks ago, and she denies any pain. Keep rash covered and will communicate to place a sign up for anyone who has not been previously vaccinated or has a risk of ayesha VZV. Admission and Anticipated Discharge Date Admission Date: January 12, 2022 Subjective Follow-up for hypoxia, pleural effusion, etc. Seen resting in bed, sitting up, not in distress States she feels somewhat better overall Breathing seems to be improved Continues to be on 2 L of oxygen by nasal cannula Cough seems to be improving No chest pain no Other symptoms Review of Systems Review of Systems: all noted and negative except for above Physical Exam Physical Exam: General- oriented x 2, not in distress, speaks in sentences with no effort or accessory muscle use Eyes- anicteric Neck- no JVD Lungs-positive crackles bilaterally, no wheezing Heart- normal rate, regular rhythm; no murmurs Abdomen- normal bowel sounds, nondistended, soft, tenderness Extremities- no pretibial edema, no calf tenderness Neuro- alert, oriented x 2; no gross focal neurologic deficits Skin- warm & dry Results & Data Results & Data ([facility]) Vital Signs (Past 12 Hours) Vital Signs Temp Pulse Pulse Resp BP Pulse Ox O2 Del Method 01/16/22 12:00 36.5 C 76 120/71 94 Nasal Cannula 01/16/22 12:31 74 18 95 Nasal Cannula 01/16/22 08:00 Nasal Cannula 01/16/22 08:00 36.7 C 70 16 149/63 H 97 Nasal Cannula 01/16/22 06:50 73 18 97 Nasal Cannula 01/16/22 05:54 36.7 C 73 18 148/68 H 97 Room Air 01/16/22 02:24 72 O2 Flow Rate 01/16/22 12:00 1 01/16/22 12:31 1 01/16/22 08:00 1 01/16/22 08:00 1 01/16/22 06:50 2 01/16/22 05:54 01/16/22 02:24 all noted and reviewed including below
[2022-01-16] MEDS: ENOXAPARIN INJ 40 MG/0.4 ML SYR SQ SCH (14:39)
[2022-01-16] MEDS ORDERED: FUROSEMIDE INJ 20 MG/2 ML VIAL IV ONE (18:00)
[2022-01-16] MEDS: MONTELUKAST SODIUM 10 MG TABLET PO SCH (20:35)
[2022-01-17] MEDS: LORazepam 0.5 MG TAB PO SCH ×3 (05:23→19:49)
[2022-01-17 05:46] LABS: BUN Creatinine Ratio 33.3 (10-20); Calcium 9.1 mg/dl (8.5-10.1); Creatinine Clr Calc Pharmacy 36.1 ml/min; Est GFR (African American) 81.9 ml/min; Est GFR (Non-African American) 70.7 ml/min; Potassium 4.6 mmol/L (3.5-5.1)
[2022-01-17] MEDS: BUDESONIDE 0.5 MG/2 ML VIAL (PULMICORT) NEB SCH ×2 (07:02→20:27)
[2022-01-17] MEDS: IPRATROPIUM BROMIDE NEB SOLN 0.02% 2.5 ML VIAL INH SCH ×3 (07:02→20:27)
[2022-01-17] MEDS: SODIUM CHLOR 7% 4 ML NEB NEB SCH ×2 (07:02→20:27)
[2022-01-17] MEDS: LEVALBUTEROL 1.25MG/0.5ML NEB INH SCH ×3 (07:02→20:27)
[2022-01-17] MEDS: DOXYCYCLINE HYCLATE 100 MG CAP PO SCH (09:07)
[2022-01-17] MEDS: PANTOprazole 40 MG TAB PO SCH ×2 (09:07→21:20)
[2022-01-17] MEDS: POTASSIUM CHLORIDE CRTAB 20 MEQ TABCR PO SCH (09:07)
[2022-01-17] MEDS: guaiFENesin 600 MG TABCR PO SCH ×2 (09:07→21:19)
[2022-01-17] MEDS: METOPROLOL TARTRATE 25 MG TAB PO SCH ×2 (09:08→21:17)
[2022-01-17] MEDS: DOCUSATE SODIUM 100 MG CAP PO SCH ×2 (09:08→21:18)
[2022-01-17] MEDS: DONEPEZIL HCL 5 MG TAB PO SCH ×2 (09:08→21:19)
[2022-01-17] MEDS: CALCIUM CARBONATE 1250MG TAB PO SCH ×3 (09:08→18:06)
[2022-01-17] MEDS: SERTRALINE HCL 100 MG TABLET PO SCH (09:09)
[2022-01-17] MEDS: AMIODARONE 200 MG TAB PO SCH (09:09)
[2022-01-17] MEDS: FUROSEMIDE INJ 20 MG/2 ML VIAL IV SCH (09:09)
[2022-01-17] MEDS: UMECLIDINIUM/VILANTEROL 62.5/25MCG 7 PUFFS/INHALER INH SCH (09:09)
[2022-01-17] MEDS: ASPIRIN 81 MG ECTAB PO SCH (09:09)
[2022-01-17] MEDS: LIDOCAINE 5% 1 PATCH TD SCH (09:19)
[2022-01-17] MEDS: FERROUS SULFATE 325 MG TAB PO SCH ×3 (09:53→18:06)
--- NOTE | 2022-01-17 14:05 | Hospitalist Progress Note ---
Date of Service January 17, 2022 Assessment & Plan (1) Acute respiratory failure: (2) RSV infection: (3) Acute exacerbation of chronic obstructive pulmonary disease: Plan: Possible pneumonia per admitting [facility] notes with addendum: Patient is 89 y/o F with PMH left breast cancer s/p left radical mastectomy, radiation pneumonitis, h/o right upper lobe lesion concerning for possible carcinoma s/p empiric radiation, asthma, COPD, HTN, PAF, anemia of chronic disea se, and others listed below presented to ER for worsening SOB, cough. URI symptoms x 1 week. +RSV 01/08/22 outpatient. Given prednisone taper, albuterol, one dose of Ceftriaxone 1gm IM. 01/11/22 started Augmentin BID x 10 days for possible superimposed pneumonia on CXR. 1 month ago hospitalization and treated for acute bronchitis, possible pneumonia, discharged on Augmentin and doxycycline In ER afebrile, O2 sat noted to drop to 70% on room air with ambulation, 98% on 3 L via nasal cannula. Other vitals stable. No leukocytosis. Lactate WNL. Negative rapid COVID-19. CXR: Small left pleural effusion with left basilar opacity which could reflect consolidation or atelectasis History negative MRSA swab 12/14/2021 Blood cultures pending Procalcitonin pending Sputum culture pending In ER given cefepime Possible pneumonia, continue cefepime, doxycycline Xopenex/Atrovent nebs Incentive spirometer Supplemental oxygen Will hold on steroids, reassess throughout hospital course Mucinex Continue home inhalers CBC in a.m. 01/13 CT chest: 1. Significantly streak and motion compromised examination. 2. Cardiomegaly. 3. Left larger than right pleural effusions with dependent consolidation. These have modestly increased in size as compared to 12/14/2021. 4. Mild patchy airspace consolidation is seen in the left upper lobe. Correlate clinically for evidence of pneumonia/aspiration pneumonitis. 5. Fibrotic change at the right apex is similar to previous and likely related to previous radiation treatment. 6. Additional findings as above. 01/14 Continue Lasix 20 mg twice daily Continue hypertonic saline twice daily continue Nebs QID continue Doxycycline VFSS performed: Recommend moist diet with small more frequent meals, strict aspiration precautions sputum culture: Light normal aly Pulm Consulted, appreciate recommendations We will assess this week and if patient would need thoracentesis 01/15 Diuresing fairly Plan for thoracentesis tomorrow continue Lasix 20 mg IV daily 80 01/16 Discussed with pulmonary service As patient is diuresing, thoracentesis Continue Lasix 20 mg IV twice daily Monitor closely 01/17 Remains on 2 L of nasal cannula Crackles seems to be improving Continue diuresis with Lasix 20 mg IV twice daily Monitor (4) Acute heart failure with preserved ejection fraction: Plan: History Echo 06/25/2021: EF: 65-70%, mild concentric LVH, left atrium severely dilated, severe mitral annular calcification, moderate MR, mild MS, mild TR, severe pulmonary hypertension, small right pleural effusion CXR: Mild interstitial pulmonary edema. Small left pleural effusion with left basilar opacity which could reflect consolidation or atelectasis. BNP: 1676 In ER nitro paste placed and given lasix 20mg IV. Initial diuresis of 1100ml in Her bag Hold home oral Lasix 20mg daily. Lasix 20 mg IV daily. Monitor further diuresis Monitor I's and O's, daily weight, low-sodium diet Echo BMP in am Management per above (5) Hypokalemia: Plan: Potassium 4.6 (6) Elevated troponin: Plan: Reported midsternal chest pain this morning, resolved after treatment in ER Troponin: 28.9. 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 With radiation pneumonitis DVT Prophylaxis Lovenox SQ DNR/DNI as per discussion with pt Follows with Dr Rodriguez for routine care (13) Shingles: Plan: Rash with lesions that are crusted over and dry. Recent history of antivirals two weeks ago, and she denies any pain. Keep rash covered and will communicate to place a sign up for anyone who has not been previously vaccinated or has a risk of ayesha VZV. Admission and Anticipated Discharge Date Admission Date: January 12, 2022 Subjective Follow-up for hypoxia, pneumonia, pleural effusion, etc. Seen resting in bedside chair, on 2 L of oxygen Not in distress, comfortable States breathing continues to improve gradually Still having some cough No chest pain no Other symptoms Review of Systems Review of Systems: all noted and negative except for above Physical Exam Physical Exam: General- oriented x 2, not in distress, speaks in sentences with no effort or accessory muscle use Eyes- anicteric Neck- no JVD Lungs-mild crackles at the bases, no wheezing Heart- normal rate, regular rhythm; no murmurs Abdomen- normal bowel sounds, nondistended, soft, nontender Extremities- no pretibial edema, no calf tenderness Neuro- alert, oriented x 2; no gross focal neurologic deficits Skin- warm & dry Results & Data Results & Data ([facility]) Vital Signs (Past 12 Hours) Vital Signs Temp Pulse Resp BP Pulse Ox O2 Del Method O2 Flow Rate 01/17/22 13:10 74 18 96 Nasal Cannula 1 01/17/22 11:04 36.5 C 58 L 18 137/73 96 Nasal Cannula 1 01/17/22 08:00 Nasal Cannula 1 01/17/22 07:04 66 18 94 Nasal Cannula 01/17/22 06:44 36.5 C 70 18 152/75 H 96 Nasal Cannula 1 01/17/22 04:21 36.5 C 70 16 150/76 H 99 Room Air 1 all noted and reviewed including below
[2022-01-17] MEDS: ENOXAPARIN INJ 40 MG/0.4 ML SYR SQ SCH (14:29)
[2022-01-17] MEDS: FUROSEMIDE INJ 20 MG/2 ML VIAL IV ONE ×2 (17:22→18:06)
[2022-01-17] MEDS: MONTELUKAST SODIUM 10 MG TABLET PO SCH (21:20)
[2022-01-18] MEDS: LEVALBUTEROL 1.25MG/0.5ML NEB INH SCH ×4 (00:18→19:31)
[2022-01-18] MEDS: IPRATROPIUM BROMIDE NEB SOLN 0.02% 2.5 ML VIAL INH SCH ×4 (00:18→19:31)
[2022-01-18] MEDS: LORazepam 0.5 MG TAB PO SCH ×3 (06:09→21:18)
[2022-01-18 07:00] LABS: BUN Creatinine Ratio 31.4 (10-20); Calcium 9.2 mg/dl (8.5-10.1); Creatinine Clr Calc Pharmacy 37.7 ml/min; Est GFR (Non-African American) 76.8 ml/min; Potassium 4.4 mmol/L (3.5-5.1)
[2022-01-18] MEDS: SODIUM CHLOR 7% 4 ML NEB NEB SCH ×2 (07:09→19:31)
[2022-01-18] MEDS: BUDESONIDE 0.5 MG/2 ML VIAL (PULMICORT) NEB SCH ×2 (07:09→19:31)
[2022-01-18] MEDS: METOPROLOL TARTRATE 25 MG TAB PO SCH ×2 (08:32→21:21)
[2022-01-18] MEDS: CALCIUM CARBONATE 1250MG TAB PO SCH ×2 (08:33→16:10)
[2022-01-18] MEDS: UMECLIDINIUM/VILANTEROL 62.5/25MCG 7 PUFFS/INHALER INH SCH (08:33)
[2022-01-18] MEDS: FUROSEMIDE INJ 20 MG/2 ML VIAL IV SCH (09:52)
--- NOTE | 2022-01-18 10:04 | XRay Report ---
XR chest 1V portable CLINICAL HISTORY: food bolus TECHNIQUE: Single frontal radiograph of the chest was obtained. Comparison: Comparison is made to chest radiograph 01/16/2022 FINDINGS: No lines and tubes are seen. Calcified aortic knob is seen. Previously noted right upper lobe airspac e opacity has decreased from prior exam. There is a small left pleural effusion, increased from prior exam. Partial visualization of vertebroplasty changes in the spine unchanged from prior exam. No rad iodensity is seen to suggest retained food bolus. Degenerative changes are seen in the bilateral shou lder joints. IMPRESSION: Small left pleural effusion, increased from prior exam. No evidence of retained food bolus is seen. I nterval improvement in right upper lung airspace opacity. ACT 112: Negative or not required by law. Electronically signed by: Rodríguez Villalta M.D. 01/18/2022 10:03 AM
[2022-01-18] MEDS: ASPIRIN 81 MG ECTAB PO SCH (10:43)
[2022-01-18] MEDS: DOCUSATE SODIUM 100 MG CAP PO SCH ×2 (10:43→21:19)
[2022-01-18] MEDS: SERTRALINE HCL 100 MG TABLET PO SCH (10:44)
[2022-01-18] MEDS: DONEPEZIL HCL 5 MG TAB PO SCH ×2 (10:44→21:20)
[2022-01-18] MEDS: AMIODARONE 200 MG TAB PO SCH (10:44)
[2022-01-18] MEDS: PANTOprazole 40 MG TAB PO SCH ×2 (10:44→21:23)
[2022-01-18] MEDS: FERROUS SULFATE 325 MG TAB PO SCH ×2 (10:44→16:10)
[2022-01-18] MEDS: LIDOCAINE 5% 1 PATCH TD SCH (10:44)
[2022-01-18] MEDS: guaiFENesin 600 MG TABCR PO SCH ×2 (10:44→21:21)
--- NOTE | 2022-01-18 13:53 | Hospitalist Progress Note ---
Date of Service January 18, 2022 Assessment & Plan (1) Acute respiratory failure: (2) RSV infection: (3) Acute exacerbation of chronic obstructive pulmonary disease: Plan: Possible pneumonia per admitting [facility] notes with addendum: Patient is 89 y/o F with PMH left breast cancer s/p left radical mastectomy, radiation pneumonitis, h/o right upper lobe lesion concerning for possible carcinoma s/p empiric radiation, asthma, COPD, HTN, PAF, anemia of chronic disea se, and others listed below presented to ER for worsening SOB, cough. URI symptoms x 1 week. +RSV 01/08/22 outpatient. Given prednisone taper, albuterol, one dose of Ceftriaxone 1gm IM. 01/11/22 started Augmentin BID x 10 days for possible superimposed pneumonia on CXR. 1 month ago hospitalization and treated for acute bronchitis, possible pneumonia, discharged on Augmentin and doxycycline In ER afebrile, O2 sat noted to drop to 70% on room air with ambulation, 98% on 3 L via nasal cannula. Other vitals stable. No leukocytosis. Lactate WNL. Negative rapid COVID-19. CXR: Small left pleural effusion with left basilar opacity which could reflect consolidation or atelectasis History negative MRSA swab 12/14/2021 Blood cultures pending Procalcitonin pending Sputum culture pending In ER given cefepime Possible pneumonia, continue cefepime, doxycycline Xopenex/Atrovent nebs Incentive spirometer Supplemental oxygen Will hold on steroids, reassess throughout hospital course Mucinex Continue home inhalers CBC in a.m. 01/13 CT chest: 1. Significantly streak and motion compromised examination. 2. Cardiomegaly. 3. Left larger than right pleural effusions with dependent consolidation. These have modestly increased in size as compared to 12/14/2021. 4. Mild patchy airspace consolidation is seen in the left upper lobe. Correlate clinically for evidence of pneumonia/aspiration pneumonitis. 5. Fibrotic change at the right apex is similar to previous and likely related to previous radiation treatment. 6. Additional findings as above. 01/14 Continue Lasix 20 mg twice daily Continue hypertonic saline twice daily continue Nebs QID continue Doxycycline VFSS performed: Recommend moist diet with small more frequent meals, strict aspiration precautions sputum culture: Light normal aly Pulm Consulted, appreciate recommendations We will assess this week and if patient would need thoracentesis 01/15 Diuresing fairly Plan for thoracentesis tomorrow continue Lasix 20 mg IV daily 80 01/16 Discussed with pulmonary service As patient is diuresing, thoracentesis Continue Lasix 20 mg IV twice daily Monitor closely 01/17 Remains on 2 L of nasal cannula Crackles seems to be improving Continue diuresis with Lasix 20 mg IV twice daily Monitor 01/18 continues to improve CXR showing improvement as well continue Lasix 20mg IV BID (4) Acute heart failure with preserved ejection fraction: Plan: History Echo 06/25/2021: EF: 65-70%, mild concentric LVH, left atrium severely dilated, severe mitral annular calcification, moderate MR, mild MS, mild TR, severe pulmonary hypertension, small right pleural effusion CXR: Mild interstitial pulmonary edema. Small left pleural effusion with left basilar opacity which could reflect consolidation or atelectasis. BNP: 1676 In ER nitro paste placed and given lasix 20mg IV. Initial diuresis of 1100ml in Her bag Hold home oral Lasix 20mg daily. Lasix 20 mg IV daily. Monitor further diuresis Monitor I's and O's, daily weight, low-sodium diet Echo BMP in am Management per above (5) Esophageal dysphagia: Plan: reports food getting stuck in her throat after breakfast today CXR: no signs of food bolus GI consulted NPO for now until evaluated by GI (6) Hypokalemia: Plan: Potassium 4.4 (7) Elevated troponin: Plan: Reported midsternal chest pain this morning, resolved after treatment in ER Troponin: 28.9. EKG without acute ST changes Likely demand ischemia Troponin trended down likely Demand Ischemia (8) PAF (paroxysmal atrial fibrillation): Plan: Current sinus rhythm Continue amiodarone, metoprolol tartrate (9) HTN (hypertension): Plan: Continue losartan, metoprolol tartrate (10) Prolonged QT interval: Plan: Qtc: 502 Monitor, repeat EKG in am May need to adjust sertraline, donezepil 01/13 QTc 481 (11) Senile degeneration of brain: Plan: Continue donezepil (12) Anemia of chronic disease: Plan: Hgb: 10.7 Continue PPI, ferrous sulfate (13) Breast cancer, left: Plan: S/P left mastectomy H/O of lung carcinoma s/p radiation. With radiation pneumonitis DVT Prophylaxis Lovenox SQ DNR/DNI as per discussion with pt Follows with Dr Rodriguez for routine care (14) Shingles: Plan: Rash with lesions that are crusted over and dry. Recent history of antivirals two weeks ago, and she denies any pain. Keep rash covered and will communicate to place a sign up for anyone who has not been previously vaccinated or has a risk of ayesha VZV. Admission and Anticipated Discharge Date Admission Date: January 12, 2022 Subjective ff up for hypoxia, pleural effusion, etc patient reported to RN that she has sensation of food stuck in her chest/epigastric area after eating half of a toast and some scrambled eggs seen at bedside chair, on 2 L NC not in distress states breathing is ok drinking sips of water with no problems still feels food is stuck in her chest/epigastric region no other symptoms Review of Systems Review of Systems: all noted and negative except for above Physical Exam Physical Exam: General- oriented x 3, not in distress, speaks in sentences with no effort or accessory muscle use Eyes- anicteric Neck- no JVD Lungs- mild rales at the bases, no wheezing Heart- normal rate, regular rhythm; no murmurs Abdomen- normal bowel sounds, nondistended, soft, no tenderness Extremities- no pretibial edema, no calf tenderness Neuro- alert, oriented x 3; no gross focal neurologic deficits Skin- warm & dry Results & Data Results & Data ([facility]) Vital Signs (Past 12 Hours) Vital Signs Temp Pulse Resp BP Pulse Ox O2 Del Method O2 Flow Rate 01/18/22 13:31 67 22 95 Nasal Cannula 1 01/18/22 12:05 36.2 C L 71 16 126/63 96 Nasal Cannula 1 01/18/22 08:00 Nasal Cannula 3 01/18/22 07:35 36.9 C 71 18 155/78 H 100 Nasal Cannula 2 01/18/22 07:09 72 18 95 Nasal Cannula 1 01/18/22 04:00 36.3 C L 69 18 135/70 98 Nasal Cannula 1 all noted and reviewed including below
[2022-01-18] MEDS: ENOXAPARIN INJ 40 MG/0.4 ML SYR SQ SCH (16:10)
[2022-01-18] MEDS ORDERED: FUROSEMIDE INJ 20 MG/2 ML VIAL IV SCH (17:00)
[2022-01-18] MEDS: MONTELUKAST SODIUM 10 MG TABLET PO SCH (21:22)
[2022-01-19] MEDS: LEVALBUTEROL 1.25MG/0.5ML NEB INH SCH ×4 (00:20→20:05)
[2022-01-19] MEDS: IPRATROPIUM BROMIDE NEB SOLN 0.02% 2.5 ML VIAL INH SCH ×4 (00:20→20:04)
[2022-01-19] MEDS: LORazepam 0.5 MG TAB PO SCH ×3 (05:58→19:36)
[2022-01-19 06:38] LABS: BUN Creatinine Ratio 28.2 (10-20); Calcium 8.6 mg/dl (8.5-10.1); Creatinine Clr Calc Pharmacy 36.8 ml/min; Est GFR (African American) 87.5 ml/min; Est GFR (Non-African American) 75.5 ml/min; Potassium 3.7 mmol/L (3.5-5.1)
[2022-01-19] MEDS: SODIUM CHLOR 7% 4 ML NEB NEB SCH ×2 (07:04→20:05)
[2022-01-19] MEDS: BUDESONIDE 0.5 MG/2 ML VIAL (PULMICORT) NEB SCH ×2 (07:04→20:06)
[2022-01-19] MEDS: CALCIUM CARBONATE 1250MG TAB PO SCH ×2 (09:03→16:21)
[2022-01-19] MEDS: LIDOCAINE 5% 1 PATCH TD SCH (09:03)
[2022-01-19] MEDS: AMIODARONE 200 MG TAB PO SCH (09:03)
[2022-01-19] MEDS: FUROSEMIDE INJ 20 MG/2 ML VIAL IV SCH (09:03)
[2022-01-19] MEDS: SERTRALINE HCL 100 MG TABLET PO SCH (09:03)
[2022-01-19] MEDS: guaiFENesin 600 MG TABCR PO SCH ×2 (09:03→19:46)
[2022-01-19] MEDS: METOPROLOL TARTRATE 25 MG TAB PO SCH ×2 (09:04→19:36)
[2022-01-19] MEDS: PANTOprazole 40 MG TAB PO SCH ×2 (09:04→19:49)
[2022-01-19] MEDS: FERROUS SULFATE 325 MG TAB PO SCH ×3 (09:04→19:42)
[2022-01-19] MEDS: DONEPEZIL HCL 5 MG TAB PO SCH ×2 (09:04→19:43)
[2022-01-19] MEDS: UMECLIDINIUM/VILANTEROL 62.5/25MCG 7 PUFFS/INHALER INH SCH (09:05)
[2022-01-19] MEDS: ASPIRIN 81 MG ECTAB PO SCH (09:05)
[2022-01-19] MEDS: DOCUSATE SODIUM 100 MG CAP PO SCH ×2 (09:05→19:45)
--- NOTE | 2022-01-19 10:20 | Hospitalist Progress Note ---
Date of Service January 19, 2022 Assessment & Plan (1) Acute respiratory failure: Plan: likely secondary to HFpEF possible component of Pneumonia, Acute COPD exacerbation Patient is 89 y/o F with PMH left breast cancer s/p left radical mastectomy, radiation pneumonitis, h/o right upper lobe lesion concerning for possible carcinoma s/p empiric radiation, asthma, COPD, HTN, PAF, anemia of chronic disease, and others listed below presented to ER for worsening SOB, cough. URI symptoms x 1 week. RSV 01/08/22 outpatient. Given prednisone taper, albuterol, one dose of Ceftriaxone 1gm IM. 01/11/22 started Augmentin BID x 10 days for possible superimposed pneumonia on CXR. 1 month ago hospitalization and treated for acute bronchitis, possible pneumonia, discharged on Augmentin and doxycycline. CT chest: 1. Significantly streak and motion compromised examination. 2. Cardiomegaly. 3. Left larger than right pleural effusions with dependent consolidation. These have modestly increased in size as compared to 12/14/2021. 4. Mild patchy airspace consolidation is seen in the left upper lobe. Correlate clinically for evidence of pneumonia/aspiration pneumonitis. 5. Fibrotic change at the right apex is similar to previous and likely related to previous radiation treatment. 6. Additional findings as above. Field Contact Person consulted, Dr. Reyes placed on Lasix 20mg IV BID, diuresed well, negative 7 L so far, planned thoracentesis not performed, repeat CXR 01/18 also showing improvement also placed on Doxycycline course (completed) Xopenex/Atrovent nebs QID, Pulmicort Neb BID, Hypertonic Saline nebs BID, Mucinex BID usual Anoro Ellipta continued off oxygen supplement since yesterday will likely need Lasix 40mg and 20mg alternating upon discharge with close monitoring of volume status and renal function/electrolytes (2) Acute heart failure with preserved ejection fraction: Plan: CXR: Mild interstitial pulmonary edema. Small left pleural effusion with left ba silar opacity which could reflect consolidation or atelectasis. BNP: 1676 Echo: EF 65-70%, RV systolic function normal, left atrium severely dilated, no aortic valve stenosis,mild to moderate mitral stenosis, moderate mitral regurgitation, moderate pulmonary hypertension no significant change compared to last available study Management per above (3) Esophageal dysphagia: Plan: s/p VFSS: suggestive of esophageal dysmotility reports food getting stuck in her sternal region after breakfast 01/18, pill stuck in her throat 01/19 CXR: no signs of food bolus GI consulted, no plans for EGD at this time Speech Therapy: changed diet to slippery, crush all meds in a carrier, strict aspiration precautions (4) Hypokalemia: Plan: Potassium 3.7 (5) Elevated troponin: Plan: Reported midsternal chest pain, resolved after treatment in ER Troponin: 28.9. EKG without acute ST changes Likely demand ischemia Troponin trended down likely Demand Ischemia (6) PAF (paroxysmal atrial fibrillation): Plan: Current sinus rhythm Continue amiodarone, metoprolol tartrate (7) HTN (hypertension): Plan: Continue losartan, metoprolol tartrate (8) Prolonged QT interval: Plan: Qtc: 502 Monitor, repeat EKG in am May need to adjust sertraline, donezepil 01/13 improved QTc 481 (9) Senile degeneration of brain: Plan: Continue donezepil (10) Anemia of chronic disease: Plan: Hgb: 10.7 Continue PPI, ferrous sulfate (11) Breast cancer, left: Plan: S/P left mastectomy H/O of lung carcinoma s/p radiation. With radiation pneumonitis (12) Shingles: Plan: Rash with lesions that are crusted over and dry. Recent history of antivirals two weeks ago prior to admission, and she denies any pain. Plan DVT Prophylaxis Lovenox SQ DNR/DNI as per discussion with pt Follows with Dr Rodriguez for routine care Disposition return to [facility] when medically stable per caseworker: [facility] is not able to accommodate pts return until Monday due to pharmacy closure tomorrow and monday and staffing issues over the weekend. Admission and Anticipated Discharge Date Admission Date: January 12, 2022 Subjective ff up for acute respiratory failure, BL pleural effusion, possible pneumonia, COPD exacerbation, etc seen resting in bedside chair, comfortable off oxygen supplement since yesterday feels fine overall breathing improved since admission less cough no chest pain report pill feels stuck in her throat this morning sensation of food in her esophagus resolved had oatmeal and scrambled eggs this morning, no problems Review of Systems Review of Systems: all noted and negative except for above Physical Exam Physical Exam: General- oriented x 3, not in distress, speaks in sentences with no effort or accessory muscle use Eyes- anicteric Neck- no JVD Lungs- very minimal rales at the bases, no wheezing good air entry BL Heart- normal rate, regular rhythm; no murmurs Abdomen- normal bowel sounds, nondistended, soft, nontender Extremities- no pretibial edema, no calf tenderness Neuro- alert, oriented x 3; no gross focal neurologic deficits Skin- warm & dry Results & Data Results & Data ([facility]) Vital Signs (Past 12 Hours) Vital Signs Temp Pulse Pulse Resp BP BP Pulse Ox 01/19/22 08:00 01/19/22 08:20 36.6 C 81 16 147/76 H 95 01/19/22 07:04 78 18 92 01/19/22 03:29 36.4 C L 101 H 20 157/86 H 94 01/19/22 04:28 78 01/19/22 03:21 36.6 C 77 16 132/69 94 01/18/22 22:37 36.5 C 78 18 118/63 O2 Del Method 01/19/22 08:00 Room Air 01/19/22 08:20 Room Air 01/19/22 07:04 Room Air 01/19/22 03:29 BiPAP 01/19/22 04:28 01/19/22 03:21 Room Air 01/18/22 22:37 Room Air all noted and reviewed including below
--- NOTE | 2022-01-19 10:38 | Gastrointestinal Consultation ---
Date of Consultation January 19, 2022 Assessment & Plan (1) Esophageal dysphagia: Patient is an 89 years old female currently admitted with pneumonia, seen for dysphagia symptoms. She does have evidence of mild oropharyngeal dysphagia on recent video swallow and speech therapy evaluation. Was not having any trouble swallowing soft and moist foods. Yesterday problem was only with swallowing toast which could be related to his dry texture. Would recommend continuing PPI daily and defer any endoscopic work-up given her current respiratory issues. She should stay on soft, moist and minced food. Reflux and aspiration precautions should be followed. Please provide daily oral hygiene. GI to sign off; pls recall prn Supervising Physician Co-Signing Physician Notes I have seen and examined the patient with TEVIN Isaac whose note reflects our findings and plan. History of Present Illness Reason for Consultation: Dysphagia Requesting Physician: Dr. Sae Del Cid Attending Physician: Dr. Seble Chaparro History of Present Illness Patient is an 89 years old female currently admitted for pneumonia, seen today for dysphagia. She was eating breakfast with toast yesterday morning and felt that it may be stuck in the lower esophagus area. Chest x-ray done yesterday showed no signs of food boluses. Patient has had video swallow study with speech therapy evaluation few days ago which showed mild oropharyngeal dysphagia. Was recommended to have regular diet, moisten food, reflux precautions. Patient ate scrambled eggs with oatmeal this morning and was able to swallow these items well without feeling that they are stuck nor choking on them. She denies any painful swallowing, nausea or vomiting. Also denies any abdominal pain symptoms. Of note her last upper endoscopy was about 2 years ago which was normal at that time. Allergies Allergy/AdvReac Type Severity Reaction Status Date / Time bee venom protein (honey bee) Allergy Severe ANAPHYLAXIS Verified 12/14/21 01:31 Home Medications Medication Instructions Recorded Confirmed Type aspirin 81 mg tablet,delayed 81 mg PO QAM 04/30/21 01/12/22 History release montelukast 10 mg tablet 10 mg PO HS 04/30/21 01/12/22 History tiotropium 2.5 mcg-olodaterol 2.5 1 puff inhalation QAM 04/30/21 01/12/22 History mcg/actuation mist for inhalation (Stiolto Respimat) calcium carbonate 500 mg calcium 500 mg PO BID 06/24/21 01/12/22 History (1,250 mg) chewable tablet docusate sodium 100 mg capsule 100 mg PO BID 06/24/21 01/12/22 History (Colace) donepezil 5 mg tablet 5 mg PO BID 06/24/21 01/12/22 History lorazepam 0.5 mg tablet 0.5 mg PO TID 06/24/21 01/12/22 History sertraline 100 mg tablet 200 mg PO QAM 07/06/21 01/12/22 History potassium chloride 10 mEq 10 meq PO DAILY #30 tabs 07/09/21 01/12/22 Rx tablet,extended release(part/cryst) amiodarone 200 mg tablet 200 mg PO QAM 10/02/21 01/12/22 History metoprolol tartrate 25 mg tablet 12.5 mg PO BID 10/02/21 01/12/22 History pantoprazole 40 mg tablet,delayed 40 mg PO BID 10/02/21 01/12/22 History release acetaminophen 325 mg tablet 650 mg PO Q4H PRN PAIN/FEVER 12/14/21 01/12/22 History (Tylenol) epinephrine 0.3 mg/0.3 mL 0.3 mg IM DIRECTED PRN Allergic 12/14/21 01/12/22 History injection, auto-injector (EpiPen) Reaction guaifenesin 200 mg tablet 400 mg PO TID PRN CHEST CONGESTION 12/14/21 01/12/22 History lidocaine 5 % topical patch 1 patch transdermal QAM 12/14/21 01/12/22 History ferrous sulfate 325 mg (65 mg 325 mg PO BID 30 days #60 tabs 12/16/21 01/12/22 Rx iron) tablet furosemide 20 mg tablet 20 mg PO DAILY 12/16/21 01/12/22 History levalbuterol HCl 1.25 mg/3 mL 1.25 mg (3 mL) NEB Q4H PRN 12/16/21 01/12/22 Rx solution for nebulization shortness of breath or wheezing #36 mL albuterol sulfate 90 mcg/actuation 2 puff inhalation Q4H PRN 01/12/22 01/12/22 History aerosol inhaler Shortness Of Breath Or Wheezing amoxicillin 875 mg-potassium 1 tab PO BID 01/12/22 01/12/22 History clavulanate 125 mg tablet prednisone 10 mg tablet 10 mg PO UD 01/12/22 01/12/22 History Patient History Medical History Abnormal CT of the chest Acute on chronic heart failure with preserved ejection fraction Anemia of chronic disease Anxiety Anxiety Asthma USING RESCUE INHALER FREQUENTLY/DAILY Asthma-COPD overlap syndrome Cancer BREAST CANCER-LEFT MASTECTOMY Chronic obstructive pulmonary disease COPD (chronic obstructive pulmonary disease) COVID-19 Deep vein thrombosis 15 YEARS AGO S/P LEG SURGERY Degenerative disc disease Dysphagia HX ESOPHAGEAL STRETCHING Fall GERD (gastroesophageal reflux disease) History of pulmonary embolism HTN (hypertension) Hypertension Osteoarthritis PAF (paroxysmal atrial fibrillation) Prolapsed bladder Pulmonary nodule, right Rectal bleeding Senile degeneration of brain T12 burst fracture Surgical History History of cataract surgery RT/LEFT History of colonoscopy History of esophagogastroduodenoscopy (EGD) History of mastectomy LEFT (NO BP/LAB DRAWS) History of tonsillectomy History of tooth extraction History of total hysterectomy with bilateral salpingo-oophorectomy (BSO) History of total knee replacement LEFT/RT Family History Other Alzheimer disease Stroke Social History Smoking Status: Never smoker Second Hand Exposure: Yes (AT WORK); Do You Dip or Chew Tobacco: No; Tobacco Cessation Education Requested by Patient: No Hx Alcohol Use: No Hx Substance Use: No Preferred Language: Trinidadian Communication Ability: Effective Mobile Qa Tester Required: No Beliefs That Will Affect Care: None marital status: / Current Living Situation: Personal Care Facility Current Living Situation Comment: [facility] How many Children do You have: 1 Other Information That Helps Us Care for You: No Feels Safe at Home: Yes Safety Concerns: Feels Safe At This Time Childhood Exposure to Second-Hand Smoke: Yes Dental Care, Regularly: Yes Assistive Devices: Walker Assistive Devices Comment: GLASSESS AT ASSISTED Review of Systems Review of Systems: All systems reviewed & are unremarkable except as noted in HPI & below Physical Exam Constitutional: WD/WN, vitals as above well groomed, cooperative and comfortable Eyes: PERRL, conjunctivae normal, anicteric sclerae ENMT: external ear and nose normal, oropharynx normal Respiratory: normal respiratory effort, lungs clear to auscultation Diminished at bases Cardiovascular: RRR, no murmur, no edema Gastrointestinal (Abdomen): normal bowel sounds, soft, nontender, no hepatosplenomegaly Skin: no jaundice Shingles on the left upper quadrant abdominal area extending to left flank Neurologic: Motor/Sensory: no asterixis Psychiatric: A+Ox3, euthymic affect Lymphatic: no lymphedema Results & Data ([facility]) Vital Signs (Past 12 Hours) Vital Signs Temp Pulse Pulse Resp BP BP Pulse Ox 01/19/22 08:00 01/19/22 08:20 36.6 C 81 16 147/76 H 95 01/19/22 07:04 78 18 92 01/19/22 03:29 36.4 C L 101 H 20 157/86 H 94 01/19/22 04:28 78 01/19/22 03:21 36.6 C 77 16 132/69 94 01/18/22 22:37 36.5 C 78 18 118/63 O2 Del Method 01/19/22 08:00 Room Air 01/19/22 08:20 Room Air 01/19/22 07:04 Room Air 01/19/22 03:29 BiPAP 01/19/22 04:28 01/19/22 03:21 Room Air 01/18/22 22:37 Room Air
[2022-01-19] MEDS ORDERED: FUROSEMIDE 20 MG TAB PO SCH (15:15)
[2022-01-19] MEDS: FUROSEMIDE 20 MG TAB PO SCH (16:17)
[2022-01-19] MEDS: ENOXAPARIN INJ 40 MG/0.4 ML SYR SQ SCH (16:20)
[2022-01-19] MEDS: MONTELUKAST SODIUM 10 MG TABLET PO SCH (19:46)
[2022-01-20] MEDS: LEVALBUTEROL 1.25MG/0.5ML NEB INH SCH ×2 (00:01→07:15)
[2022-01-20] MEDS: IPRATROPIUM BROMIDE NEB SOLN 0.02% 2.5 ML VIAL INH SCH ×2 (00:01→07:15)
[2022-01-20 05:33] LABS: BUN Creatinine Ratio 26.8 (10-20); Calcium 8.6 mg/dl (8.5-10.1); Creatinine Clr Calc Pharmacy 36.6 ml/min; Est GFR (African American) 87.5 ml/min; Est GFR (Non-African American) 75.5 ml/min; Potassium 3.4 mmol/L (3.5-5.1)
[2022-01-20] MEDS: LORazepam 0.5 MG TAB PO SCH ×3 (06:45→20:50)
[2022-01-20] MEDS: SODIUM CHLOR 7% 4 ML NEB NEB SCH (07:14)
[2022-01-20] MEDS: BUDESONIDE 0.5 MG/2 ML VIAL (PULMICORT) NEB SCH ×2 (07:15→19:57)
[2022-01-20] MEDS: AMIODARONE 200 MG TAB PO SCH (08:39)
[2022-01-20] MEDS: DOCUSATE SODIUM 100 MG CAP PO SCH ×2 (08:39→21:06)
[2022-01-20] MEDS: CALCIUM CARBONATE 1250MG TAB PO SCH (08:39)
[2022-01-20] MEDS: ASPIRIN 81 MG ECTAB PO SCH (08:39)
[2022-01-20] MEDS: SERTRALINE HCL 100 MG TABLET PO SCH (08:39)
[2022-01-20] MEDS: guaiFENesin 600 MG TABCR PO SCH ×2 (08:39→21:06)
[2022-01-20] MEDS: POTASSIUM CHLORIDE CRTAB 20 MEQ TABCR PO SCH (08:40)
[2022-01-20] MEDS: DONEPEZIL HCL 5 MG TAB PO SCH ×2 (08:40→21:05)
[2022-01-20] MEDS: UMECLIDINIUM/VILANTEROL 62.5/25MCG 7 PUFFS/INHALER INH SCH (08:40)
[2022-01-20] MEDS: LIDOCAINE 5% 1 PATCH TD SCH (08:41)
[2022-01-20] MEDS: METOPROLOL TARTRATE 25 MG TAB PO SCH ×2 (08:41→20:55)
[2022-01-20] MEDS: PANTOprazole 40 MG TAB PO SCH ×2 (08:41→21:04)
--- NOTE | 2022-01-20 10:47 | Hospitalist Progress Note ---
Date of Service January 20, 2022 Assessment & Plan (1) Acute respiratory failure: Plan: likely secondary to HFpEF possible component of Pneumonia, Acute COPD exacerbation Patient is 89 y/o F with PMH left breast cancer s/p left radical mastectomy, radiation pneumonitis, h/o right upper lobe lesion concerning for possible carcinoma s/p empiric radiation, asthma, COPD, HTN, PAF, anemia of chronic disease, and others listed below presented to ER for worsening SOB, cough. URI symptoms x 1 week. RSV 01/08/22 outpatient. Given prednisone taper, albuterol, one dose of Ceftriaxone 1gm IM. 01/11/22 started Augmentin BID x 10 days for possible superimposed pneumonia on CXR. 1 month ago hospitalization and treated for acute bronchitis, possible pneumonia, discharged on Augmentin and doxycycline. CT chest: 1. Significantly streak and motion compromised examination. 2. Cardiomegaly. 3. Left larger than right pleural effusions with dependent consolidation. These have modestly increased in size as compared to 12/14/2021. 4. Mild patchy airspace consolidation is seen in the left upper lobe. Correlate clinically for evidence of pneumonia/aspiration pneumonitis. 5. Fibrotic change at the right apex is similar to previous and likely related to previous radiation treatment. 6. Additional findings as above. Mobile Application Tester consulted, Dr. Reyes placed on Lasix 20mg IV BID, diuresed well, planned thoracentesis not performed, repeat CXR 01/18 also showing improvement also placed on Doxycycline course (completed) Xopenex/Atrovent nebs QID, Pulmicort Neb BID, Hypertonic Saline nebs BID, Mucinex BID usual Anoro Ellipta continued off oxygen supplementation started on Lasix 40mg and 20mg alternating dc saline nebs, cont pulmicort neb for now, change duoneb to PRN, cont anoro ellipta. (2) Acute heart failure with preserved ejection fraction: Plan: compensated now, was diuresed with intravenous furosemide. (3) Esophageal dysphagia: Plan: s/p VFSS: suggestive of esophageal dysmotility reports food getting stuck in her sternal region after breakfast 01/18, pill stuck in her throat 01/19 CXR: no signs of food bolus GI consulted, no plans for EGD at this time Speech Therapy: changed diet to slippery, crush all meds in a carrier, strict aspiration precautions discussed these recommendations with patient and her son, Juan, at bedside. (4) Hypokalemia: Plan: Potassium 3.7 (5) Elevated troponin: Plan: Reported midsternal chest pain, resolved after treatment in ER Troponin: 28.9. EKG without acute ST changes Likely demand ischemia (6) PAF (paroxysmal atrial fibrillation): Plan: Current sinus rhythm Continue amiodarone, metoprolol tartrate (7) HTN (hypertension): Plan: chronic, controlled. 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 Continue donezepil (9) Anemia of chronic disease: Plan: chronic, stable. Cont monitoring in outpatient setting. (10) Breast cancer, left: Plan: S/P left mastectomy H/O of lung carcinoma s/p radiation w radiation pneumonitis (11) Shingles: Plan: Rash with lesions that are crusted over and dry/resolving. Recent history of antivirals two weeks ago prior to admission, and she denies any pain. Plan DVT Prophylaxis Lovenox SQ DNR/DNI Follows with Dr Rodirguez for routine care Disposition return to [facility] as she is medically stable. Will remove telemetry monitoring. per case briefer: [facility] is not able to accommodate pts return until Monday due to pharmacy closure tomorrow and monday and staffing issues over the weekend. Prema Reyes DO [facility] Admission and Anticipated Discharge Date Admission Date: January 12, 2022 Subjective 89-year-old female presented with acute respiratory failure secondary to RSV in fection and acute exacerbation of COPD in the setting of acute heart failure with preserved ejection fraction. She is currently resting comfortably in bed She has a history of dementia which compromises review of systems to some extent. Urinary catheter is still in place which was removed today Her son Juan is at the bedside. We reviewed speech pathology recommendations and how to be in line with strict aspiration precautions. When I was in the room she tried to take a drink of water while lying fairly supine in bed She is concerned and wondering why she cannot "clear the mucus in my throat." She continues to have a wet sounding cough that is nonproductive. Primary RN reports that she was ambulating with assistance and supervision in the hallway She denies any other chest pain, fevers, chills. Review of Systems Review of Systems: All systems reviewed negative except as indicated above. Physical Exam Physical Exam: CONSTITUTIONAL: thin, frail, vitals as above, generally NAD EYES: normal conjunctivae, no scleral icterus ENT: external ear and nose normal, MMM NECK: trachea midline RESPIRATORY: clear to auscultation bilaterally, no crackles, rales or wheezes, normal respiratory effort CARDIOVASCULAR: regular rate and rhythm, S1 and 2 heard without murmurs, gallops or rubs, no JVD, no peripheral edema CHEST: inspection of chest was normal GASTROINTESTINAL: soft, nontender, ND, no guarding MUSCULOSKELETAL: strength 5/5 throughout, head is normocephalic and atraumatic SKIN: warm and dry NEUROLOGIC: CN 2-12 grossly intact, no sensory deficit, normal cognition, normal speech, no tremor PSYCHIATRIC: alert cooperative and oriented to person, place and time. Euthymic mood, makes good eye contact, language grossly intact. Results & Data Results & Data ([facility]) Vital Signs (Past 12 Hours) Vital Signs Temp Pulse Resp BP BP Pulse Ox O2 Del Method 01/20/22 08:00 Room Air 01/20/22 07:24 36.7 C 75 20 166/82 H 100 Room Air 01/20/22 07:15 79 18 91 Room Air 01/20/22 05:06 Room Air 01/20/22 04:04 36.6 C 75 20 131/64 92 Room Air 01/19/22 23:41 36.8 C 79 18 122/53 L 92 Room Air Laboratory Results [facility] 01/20/22 04:50 Sodium 134 L Potassium 3.4 L Chloride 96 L Carbon Dioxide 30 BUN 19 Creatinine 0.71 Glucose 80 Calcium 8.6 Medications Administered Current Inpatient Medications Acetaminophen (Acetaminophen 325 Mg Tab) 650 mg PO Q4H PRN PRN Reason: Pain or Fever Stop: 02/11/22 14:43 Amiodarone HCl (Amiodarone 200 Mg Tab) 200 mg PO [facility] Stop: 02/12/22 08:59 Last Admin: 01/20/22 08:39 Dose: 200 mg Aspirin (Aspirin 81 Mg Ectab) 81 mg PO [facility] Stop: 02/12/22 08:59 Last Admin: 01/20/22 08:39 Dose: 81 mg Budesonide (Budesonide 0.5 Mg/2 Ml Vial (Pulmicort)) 0.5 mg NEB BIDR [facility] Stop: 02/12/22 18:59 Last Admin: 01/20/22 07:15 Dose: 0.5 mg Calcium Carbonate (Calcium Carbonate 1250mg Tab) 1,250 mg PO BIDM [facility] Stop: 02/11/22 16:59 Last Admin: 01/20/22 08:39 Dose: 1,250 mg Docusate Sodium (Docusate Sodium 100 Mg Cap) 100 mg PO BID [facility] Stop: 02/11/22 20:59 Last Admin: 01/20/22 08:39 Dose: 100 mg Donepezil HCl (Donepezil Hcl 5 Mg Tab) 5 mg PO BID [facility] Stop: 02/11/22 20:59 Last Admin: 01/20/22 08:40 Dose: 5 mg Enoxaparin Sodium (Enoxaparin Inj 40 Mg/0.4 Ml Syr) 40 mg SQ Q24H [facility] Stop: 02/15/22 14:59 Last Admin: 01/19/22 16:20 Dose: 40 mg Ferrous Sulfate (Ferrous Sulfate 325 Mg Tab) 325 mg PO BIDM [facility] Stop: 02/11/22 20:59 Last Admin: 01/19/22 19:42 Dose: 325 mg Furosemide (Furosemide 20 Mg Tab) 20 mg PO MoWeThSa@0900 [facility] Stop: 02/18/22 15:29 Last Admin: 01/19/22 16:17 Dose: 20 mg Furosemide (Furosemide 20 Mg Tab) 40 mg PO SuTuFr@0900 [facility] Stop: 02/20/22 08:59 Guaifenesin (Guaifenesin 600 Mg Tabcr) 600 mg PO Q12 [facility] Stop: 02/11/22 20:59 Last Admin: 01/20/22 08:39 Dose: 600 mg Ipratropium [place] (Ipratropium [place] Neb Soln 0.02% 2.5 Ml Vial) 0.5 mg INH Q6R [facility] Stop: 02/11/22 14:59 Last Admin: 01/20/22 07:15 Dose: 0.5 mg Levalbuterol HCl (Levalbuterol 1.25mg/0.5ml Neb) 1.25 mg INH Q6R [facility] Stop: 02/11/22 14:59 Last Admin: 01/20/22 07:15 Dose: 1.25 mg Lidocaine (Lidocaine 5% 1 Patch) 1 patch TD QAM [facility] Stop: 02/12/22 08:59 Last Admin: 01/20/22 08:41 Dose: 1 patch Lorazepam (Lorazepam 0.5 Mg Tab) 0.5 mg PO TID@0630,1500,2000 [facility] Stop: 02/11/22 14:59 Last Admin: 01/20/22 06:45 Dose: 0.5 mg Magnesium Hydroxide (Magnesium Hydroxide Susp 30 Ml Udc) 30 ml PO Q12H PRN PRN Reason: Constipation Stop: 02/11/22 14:43 Metoprolol Tartrate (Metoprolol Tartrate 25 Mg Tab) 12.5 mg PO BID [facility] Stop: 02/11/22 20:59 Last Admin: 01/20/22 08:41 Dose: 12.5 mg Miscellaneous (Remove Lidoderm Patch) 1 each N/A DAILY@2100 [facility] Stop: 02/11/22 20:59 Last Admin: 01/19/22 19:50 Dose: 1 each Montelukast Sodium (Montelukast Sodium 10 Mg Tablet) 10 mg PO HS [facility] Stop: 02/11/22 20:59 Last Admin: 01/19/22 19:46 Dose: 10 mg Pantoprazole Sodium (Pantoprazole 40 Mg Tab) 40 mg PO BID [facility] Stop: 02/11/22 20:59 Last Admin: 01/20/22 08:41 Dose: 40 mg Polyethylene Glycol (Polyethylene (Miralax) 17 Gm Pack) 17 gm PO DAILY PRN PRN Reason: Constipation Stop: 02/11/22 14:43 Last Admin: 01/12/22 15:44 Dose: 17 gm Potassium Chloride (Potassium Chloride Crtab 20 Meq Tabcr) 20 meq PO QAM [facility] Stop: 02/19/22 08:59 Last Admin: 01/20/22 08:40 Dose: 20 meq Sertraline HCl (Sertraline Hcl 100 Mg Tablet) 200 mg PO QAM [facility] Stop: 02/12/22 08:59 Last Admin: 01/20/22 08:39 Dose: 200 mg Sodium Chloride (Sodium Chlor 7% 4 Ml Neb) 4 ml NEB BIDR [facility] Stop: 02/12/22 18:59 Last Admin: 01/20/22 07:14 Dose: 4 ml Umeclidinium/Vilanterol (Umeclidinium/Vilanterol 62.5/25mcg 7 Puffs/Inhaler) 1 puffs INH QAM [facility]; Protocol Stop: 02/12/22 08:59 Last Admin: 01/20/22 08:40 Dose: 1 puffs
[2022-01-20] MEDS: FUROSEMIDE 20 MG TAB PO SCH (11:44)
[2022-01-20] MEDS ORDERED: IPRATROPIUM BROMIDE NEB SOLN 0.02% 2.5 ML VIAL INH PRN (11:55)
[2022-01-20] MEDS ORDERED: LEVALBUTEROL 1.25MG/0.5ML NEB INH PRN (11:55)
[2022-01-20] MEDS ORDERED: LIDOCAINE 5% 1 PATCH TD PRN (11:55)
[2022-01-20] MEDS: MONTELUKAST SODIUM 10 MG TABLET PO SCH (21:04)
[2022-01-20] MEDS: HEPARIN SOD 5,000 UNIT/0.5 ML VIAL SQ SCH (21:08)
[2022-01-21] MEDS: LORazepam 0.5 MG TAB PO SCH ×3 (05:44→19:52)
[2022-01-21] MEDS: BUDESONIDE 0.5 MG/2 ML VIAL (PULMICORT) NEB SCH ×2 (07:38→19:25)
[2022-01-21] MEDS: guaiFENesin 600 MG TABCR PO SCH ×2 (08:34→19:59)
[2022-01-21] MEDS: DOCUSATE SODIUM 100 MG CAP PO SCH ×2 (08:34→19:59)
[2022-01-21] MEDS: SERTRALINE HCL 100 MG TABLET PO SCH (08:34)
[2022-01-21] MEDS: PANTOprazole 40 MG TAB PO SCH ×2 (08:34→20:04)
[2022-01-21] MEDS: DONEPEZIL HCL 5 MG TAB PO SCH ×2 (08:34→19:59)
[2022-01-21] MEDS: POTASSIUM CHLORIDE CRTAB 20 MEQ TABCR PO SCH (08:35)
[2022-01-21] MEDS: ASPIRIN 81 MG ECTAB PO SCH (08:35)
[2022-01-21] MEDS: AMIODARONE 200 MG TAB PO SCH (08:35)
[2022-01-21] MEDS: HEPARIN SOD 5,000 UNIT/0.5 ML VIAL SQ SCH ×2 (08:35→19:59)
[2022-01-21] MEDS: FUROSEMIDE 20 MG TAB PO SCH (08:35)
[2022-01-21] MEDS: UMECLIDINIUM/VILANTEROL 62.5/25MCG 7 PUFFS/INHALER INH SCH (08:36)
[2022-01-21] MEDS: METOPROLOL TARTRATE 25 MG TAB PO SCH ×2 (08:36→20:04)
[2022-01-21 10:55] LABS: Hematocrit (blood only) 34.6 % (34.1-44.9); Hemoglobin 10.8 g/dl (12.0-16.0); Mean Corpuscular Hgb Conc 31.2 g/dL (32.0-36.0); Mean Corpuscular Volume 83.4 fL (80.0-100.0); Mean Platelet Volume 10.9 fL (9.4-12.3); Platelet Count 248 K/uL (130-400); RDW Coefficient of Variation 23.6 % (11.5-14.5); RDW Standard Deviation 71.7 fL (36.4-46.3); Red Blood Count 4.15 M/uL (3.93-5.22); White Blood Count 3.64 K/ul (4.8-10.8)
[2022-01-21 11:19] LABS: BUN Creatinine Ratio 23.1 (10-20); Calcium 8.7 mg/dl (8.5-10.1); Est GFR (African American) 78.1 ml/min; Est GFR (Non-African American) 67.4 ml/min; Potassium 3.9 mmol/L (3.5-5.1)
--- NOTE | 2022-01-21 16:06 | Hospitalist Progress Note ---
Date of Service January 21, 2022 Assessment & Plan (1) Acute respiratory failure: Plan: likely secondary to HFpEF possible component of Pneumonia, Acute COPD exacerbation Patient is 89 y/o F with PMH left breast cancer s/p left radical mastectomy, radiation pneumonitis, h/o right upper lobe lesion concerning for possible carcinoma s/p empiric radiation, asthma, COPD, HTN, PAF, anemia of chronic disease, and others listed below presented to ER for worsening SOB, cough. URI symptoms x 1 week. RSV 01/08/22 outpatient. Given prednisone taper, albuterol, one dose of Ceftriaxone 1gm IM. 01/11/22 started Augmentin BID x 10 days for possible superimposed pneumonia on CXR. 1 month ago hospitalization and treated for acute bronchitis, possible pneumonia, discharged on Augmentin and doxycycline. CT chest: 1. Significantly streak and motion compromised examination. 2. Cardiomegaly. 3. Left larger than right pleural effusions with dependent consolidation. These have modestly increased in size as compared to 12/14/2021. 4. Mild patchy airspace consolidation is seen in the left upper lobe. Correlate clinically for evidence of pneumonia/aspiration pneumonitis. 5. Fibrotic change at the right apex is similar to previous and likely related to previous radiation treatment. 6. Additional findings as above. Family Protection Specialist consulted, Dr. Reyes placed on Lasix 20mg IV BID, diuresed well, planned thoracentesis not performed, repeat CXR 01/18 also showing improvement also placed on Doxycycline course (completed) Xopenex/Atrovent nebs QID, Pulmicort Neb BID, Hypertonic Saline nebs BID, Mucinex BID usual Anoro Ellipta continued off oxygen supplementation started on Lasix 40mg and 20mg alternating dc saline nebs, cont pulmicort neb for now, change duoneb to PRN, cont anoro ellipta. Doing well, cont to monitor on the floor and medically stable for transfer back to [facility] (2) Acute heart failure with preserved ejection fraction: Plan: compensated now, was diuresed with intravenous furosemide this admission. (3) Esophageal dysphagia: Plan: s/p VFSS: suggestive of esophageal dysmotility reports food getting stuck in her sternal region after breakfast 01/18, pill stuck in her throat 01/19 CXR: no signs of food bolus GI consulted, no plans for EGD at this time Speech Therapy: changed diet to slippery, crush all meds in a carrier, strict aspiration precautions discussed these recommendations with patient and her son, Juan, at bedside. (4) Hypokalemia: Plan: 2/2 diuretic therapy which is resolved. (5) Elevated troponin: Plan: Reported midsternal chest pain, resolved after treatment in ER Troponin: 28.9. EKG without acute ST changes Likely demand ischemia (6) PAF (paroxysmal atrial fibrillation): Plan: Current sinus rhythm Continue amiodarone, metoprolol tartrate (7) HTN (hypertension): Plan: chronic, controlled. 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 Continue donezepil (9) Anemia of chronic disease: Plan: chronic, stable. Cont monitoring in outpatient setting. (10) Breast cancer, left: Plan: S/P left mastectomy H/O of lung carcinoma s/p radiation w radiation pneumonitis (11) Shingles: Plan: Rash with lesions that are dry/resolving and there is no crusting present any longer. Recent history of antivirals two weeks prior to admission, and she denies any pain. Plan DVT Prophylaxis Lovenox SQ DNR/DNI Follows with Dr Rodriguez for routine care Disposition return to [facility] as she is medically stable. per director of casework services: [facility] is not able to accommodate pts return until Monday due to pharmacy closure tomorrow and monday and staffing issues over the weekend. Prema Reyes DO [facility] and Anticipated Discharge Date Admission Date: January 12, 2022 Subjective 89-year-old female presented with acute respiratory failure secondary to RSV infection and acute exacerbation of COPD in the setting of acute heart failure with preserved ejection fraction. She is currently resting comfortably in the chair at bedside She has a history of dementia which compromises review of systems to some extent. She reports a continued cough, although she didn't cough while I was there She is otherwise breathing well She has Tessalon perles at home but declines them because she doesn't feel these work well. Maddie IYER considered Review of Systems Review of Systems: All systems reviewed negative except as indicated above. Physical Exam Physical Exam: CONSTITUTIONAL: thin, frail, vitals as above, generally NAD EYES: normal conjunctivae, no scleral icterus ENT: external ear and nose normal, MMM NECK: trachea midline RESPIRATORY: clear to auscultation bilaterally, no crackles, rales or wheezes, normal respiratory effort CARDIOVASCULAR: regular rate and rhythm, S1 and 2 heard without murmurs, gallops or rubs, no JVD, no peripheral edema CHEST: inspection of chest was normal GASTROINTESTINAL: soft, nontender, ND, no guarding MUSCULOSKELETAL: strength 5/5 throughout, head is normocephalic and atraumatic SKIN: warm and dry, dry red rash in lower thoracic dermatome on the left NEUROLOGIC: CN 2-12 grossly intact, no sensory deficit, normal cognition, normal speech, no tremor PSYCHIATRIC: alert cooperative and oriented to person, place and time. Euthymic mood, makes good eye contact, language grossly intact. Results & Data Results & Data ([facility]) Vital Signs (Past 12 Hours) Vital Signs Temp Pulse Pulse Resp BP Pulse Ox O2 Del Method 01/21/22 15:50 36.6 C 71 19 153/75 H 95 Room Air 01/21/22 12:43 36.4 C L 74 17 129/76 92 Room Air 01/21/22 08:00 66 01/21/22 08:00 Room Air 01/21/22 08:07 36.7 C 73 17 165/76 H 93 Room Air 01/21/22 07:38 71 16 95 Room Air Laboratory Results Short CBC 01/21/22 Range/Units 10:41 WBC 3.64 L (4.8-10.8) K/ul Hgb 10.8 L (12.0-16.0) g/dl Hct 34.6 (34.1-44.9) % Plt Count 248 (130-400) K/uL BMP 01/21/22 10:41 Sodium 134 L Potassium 3.9 Chloride 97 L Carbon Dioxide 32 BUN 18 Creatinine 0.78 Glucose 91 Calcium 8.7 Medications Administered Current Inpatient Medications Acetaminophen (Acetaminophen 325 Mg Tab) 650 mg PO Q4H PRN PRN Reason: Pain or Fever Stop: 02/11/22 14:43 Amiodarone HCl (Amiodarone 200 Mg Tab) 200 mg PO [facility] Stop: 02/12/22 08:59 Last Admin: 01/21/22 08:35 Dose: 200 mg Aspirin (Aspirin 81 Mg Ectab) 81 mg PO [facility] Stop: 02/12/22 08:59 Last Admin: 01/21/22 08:35 Dose: 81 mg Budesonide (Budesonide 0.5 Mg/2 Ml Vial (Pulmicort)) 0.5 mg NEB BIDR [facility] Stop: 02/12/22 18:59 Last Admin: 01/21/22 07:38 Dose: 0.5 mg Calcium Carbonate (Calcium Carbonate 1250mg Tab) 1,250 mg PO BIDM [facility] Stop: 02/11/22 16:59 Last Admin: 01/20/22 08:39 Dose: 1,250 mg Docusate Sodium (Docusate Sodium 100 Mg Cap) 100 mg PO BID [facility] Stop: 02/11/22 20:59 Last Admin: 01/21/22 08:34 Dose: 100 mg Donepezil HCl (Donepezil Hcl 5 Mg Tab) 5 mg PO BID [facility] Stop: 02/11/22 20:59 Last Admin: 01/21/22 08:34 Dose: 5 mg Ferrous Sulfate (Ferrous Sulfate 325 Mg Tab) 325 mg PO BIDM [facility] Stop: 02/11/22 20:59 Last Admin: 01/19/22 19:42 Dose: 325 mg Furosemide (Furosemide 20 Mg Tab) 20 mg PO MoWeThSa@0900 [facility] Stop: 02/18/22 15:29 Last Admin: 01/20/22 11:44 Dose: 20 mg Furosemide (Furosemide 20 Mg Tab) 40 mg PO SuTuFr@0900 [facility] Stop: 02/20/22 08:59 Last Admin: 01/21/22 08:35 Dose: 40 mg Guaifenesin (Guaifenesin 600 Mg Tabcr) 600 mg PO Q12 [facility] Stop: 02/11/22 20:59 Last Admin: 01/21/22 08:34 Dose: 600 mg Heparin Sodium (Porcine) (Heparin Sod 5,000 Unit/0.5 Ml Vial) 5,000 units SQ Q12 [facility] Stop: 02/19/22 20:59 Last Admin: 01/21/22 08:35 Dose: 5,000 units Ipratropium [place] (Ipratropium [place] Neb Soln 0.02% 2.5 Ml Vial) 0.5 mg INH Q6R PRN PRN Reason: sob/wheezing Stop: 02/11/22 14:59 Levalbuterol HCl (Levalbuterol 1.25mg/0.5ml Neb) 1.25 mg INH Q6R PRN PRN Reason: sob/wheezing Stop: 02/11/22 14:59 Lidocaine (Lidocaine 5% 1 Patch) 1 patch TD QAM PRN PRN Reason: pain Stop: 02/12/22 08:59 Lorazepam (Lorazepam 0.5 Mg Tab) 0.5 mg PO TID@0630,1500,2000 [facility] Stop: 02/11/22 14:59 Last Admin: 01/21/22 15:12 Dose: 0.5 mg Magnesium Hydroxide (Magnesium Hydroxide Susp 30 Ml Udc) 30 ml PO Q12H PRN PRN Reason: Constipation Stop: 02/11/22 14:43 Metoprolol Tartrate (Metoprolol Tartrate 25 Mg Tab) 12.5 mg PO BID [facility] Stop: 02/11/22 20:59 Last Admin: 01/21/22 08:36 Dose: 12.5 mg Miscellaneous (Remove Lidoderm Patch) 1 each N/A DAILY@2100 [facility] Stop: 02/11/22 20:59 Last Admin: 01/20/22 21:08 Dose: 1 each Montelukast Sodium (Montelukast Sodium 10 Mg Tablet) 10 mg PO HS [facility] Stop: 02/11/22 20:59 Last Admin: 01/20/22 21:04 Dose: 10 mg Pantoprazole Sodium (Pantoprazole 40 Mg Tab) 40 mg PO BID [facility] Stop: 02/11/22 20:59 Last Admin: 01/21/22 08:34 Dose: 40 mg Polyethylene Glycol (Polyethylene (Miralax) 17 Gm Pack) 17 gm PO DAILY PRN PRN Reason: Constipation Stop: 02/11/22 14:43 Last Admin: 01/12/22 15:44 Dose: 17 gm Potassium Chloride (Potassium Chloride Crtab 20 Meq Tabcr) 20 meq PO QAM [facility] Stop: 02/19/22 08:59 Last Admin: 01/21/22 08:35 Dose: 20 meq Sertraline HCl (Sertraline Hcl 100 Mg Tablet) 200 mg PO QAM [facility] Stop: 02/12/22 08:59 Last Admin: 01/21/22 08:34 Dose: 200 mg Umeclidinium/Vilanterol (Umeclidinium/Vilanterol 62.5/25mcg 7 Puffs/Inhaler) 1 puffs INH QAM [facility]; Protocol Stop: 02/12/22 08:59 Last Admin: 01/21/22 08:36 Dose: 1 puffs
[2022-01-21] MEDS: MONTELUKAST SODIUM 10 MG TABLET PO SCH (19:59)
[2022-01-22] MEDS: LORazepam 0.5 MG TAB PO SCH ×3 (05:53→20:43)
[2022-01-22] MEDS: BUDESONIDE 0.5 MG/2 ML VIAL (PULMICORT) NEB SCH (07:59)
[2022-01-22] MEDS: POTASSIUM CHLORIDE CRTAB 20 MEQ TABCR PO SCH (09:22)
[2022-01-22] MEDS: SERTRALINE HCL 100 MG TABLET PO SCH (09:22)
[2022-01-22] MEDS: DOCUSATE SODIUM 100 MG CAP PO SCH ×2 (09:23→22:10)
[2022-01-22] MEDS: guaiFENesin 600 MG TABCR PO SCH ×2 (09:23→22:10)
[2022-01-22] MEDS: ASPIRIN 81 MG ECTAB PO SCH (09:23)
[2022-01-22] MEDS: AMIODARONE 200 MG TAB PO SCH (09:23)
[2022-01-22] MEDS: DONEPEZIL HCL 5 MG TAB PO SCH ×2 (09:24→20:43)
[2022-01-22] MEDS: PANTOprazole 40 MG TAB PO SCH ×2 (09:24→22:10)
[2022-01-22] MEDS: HEPARIN SOD 5,000 UNIT/0.5 ML VIAL SQ SCH ×2 (09:25→20:43)
[2022-01-22] MEDS: FUROSEMIDE 20 MG TAB PO SCH (09:26)
[2022-01-22] MEDS: METOPROLOL TARTRATE 25 MG TAB PO SCH ×2 (09:31→20:44)
[2022-01-22] MEDS: LOSARTAN POTASSIUM 25 MG TAB PO SCH (10:08)
[2022-01-22] MEDS: SPIRONOLACTONE 12.5 MG TAB PO SCH (10:08)
[2022-01-22] MEDS: UMECLIDINIUM/VILANTEROL 62.5/25MCG 7 PUFFS/INHALER INH SCH (10:08)
--- NOTE | 2022-01-22 11:49 | Hospitalist Progress Note ---
Date of Service January 22, 2022 Assessment & Plan (1) Acute respiratory failure: Plan: likely secondary to HFpEF possible component of Pneumonia, Acute COPD exacerbation Patient is 89 y/o F with PMH left breast cancer s/p left radical mastectomy, radiation pneumonitis, h/o right upper lobe lesion concerning for possible carcinoma s/p empiric radiation, asthma, COPD, HTN, PAF, anemia of chronic disease, and others listed below presented to ER for worsening SOB, cough. URI symptoms x 1 week. RSV 01/08/22 outpatient. Given prednisone taper, albuterol, one dose of Ceftriaxone 1gm IM. 01/11/22 started Augmentin BID x 10 days for possible superimposed pneumonia on CXR. 1 month ago hospitalization and treated for acute bronchitis, possible pneumonia, discharged on Augmentin and doxycycline. CT chest: 1. Significantly streak and motion compromised examination. 2. Cardiomegaly. 3. Left larger than right pleural effusions with dependent consolidation. These have modestly increased in size as compared to 12/14/2021. 4. Mild patchy airspace consolidation is seen in the left upper lobe. Correlate clinically for evidence of pneumonia/aspiration pneumonitis. 5. Fibrotic change at the right apex is similar to previous and likely related to previous radiation treatment. 6. Additional findings as above. Mammal Keeper consulted, Dr. Reyes placed on Lasix 20mg IV BID, diuresed well, planned thoracentesis not performed, repeat CXR 01/18 also showing improvement also placed on Doxycycline course (completed) Xopenex/Atrovent nebs QID, Pulmicort Neb BID, Hypertonic Saline nebs BID, Mucinex BID usual Anoro Ellipta continued off oxygen supplementation started on Lasix 40mg and 20mg alternating dc saline nebs, cont pulmicort neb for now, change duoneb to PRN, cont anoro ellipta. Doing well, cont to monitor on the floor and medically stable for transfer back to [facility] (2) Acute heart failure with preserved ejection fraction: Plan: compensated now, was diuresed with intravenous furosemide this admission. (3) Esophageal dysphagia: Plan: s/p VFSS: suggestive of esophageal dysmotility reports food getting stuck in her sternal region after breakfast 01/18, pill stuck in her throat 01/19 CXR: no signs of food bolus GI consulted, no plans for EGD at this time Speech Therapy: changed diet to slippery, crush all meds in a carrier, strict aspiration precautions These recommendations were reviewed with her son. She still has a feeling of upper airway congestion that is bothering her and she is trying to expectorate something. Continue to try and ameliorate symptoms with flutter valve, inhalers, lozenges as needed and continue strict aspiration precautions. May need to follow-up with ENT or GI as outpatient. (4) Hypokalemia: Plan: 2/2 diuretic therapy which is resolved. (5) Elevated troponin: Plan: Reported midsternal chest pain, resolved after treatment in ER Troponin: 28.9. EKG without acute ST changes Likely demand ischemia (6) PAF (paroxysmal atrial fibrillation): Plan: Current sinus rhythm Continue amiodarone, metoprolol tartrate (7) HTN (hypertension): Plan: chronic, controlled. 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 Continue donezepil (9) Anemia of chronic disease: Plan: chronic, stable. Cont monitoring in outpatient setting. (10) Breast cancer, left: Plan: S/P left mastectomy H/O of lung carcinoma s/p radiation w radiation pneumonitis (11) Shingles: Plan: Rash with lesions that are dry/resolving and there is no crusting present any longer. Recent history of antivirals two weeks prior to admission, and she denies any pain. Plan DVT Prophylaxis Lovenox SQ DNR/DNI Follows with Dr Rodriguez for routine care Disposition return to [facility] as she is medically stable. per sales consultant residential manager: [facility] is not able to accommodate pts return until Monday due to pharmacy closure tomorrow and monday and staffing issues over the weekend. Prema Reyes DO [place] Hospitalist Admission and Anticipated Discharge Date Admission Date: January 12, 2022 Subjective 89-year-old female presented with acute respiratory failure secondary to RSV infection and acute exacerbation of COPD in the setting of acute heart failure with preserved ejection fraction. She reports still having an upper airway moist cough where she is trying to "get the mucous up" However cough is nonproductive. She reports that she is not having excessive coughing but uses the cough to try and clear her airway. She has some noted esophageal dysmotility and there are upper airway sounds present. No wheezing crackles or rails are present in the lungs which are clear to auscultation throughout. She is not having tachypnea and appears comfortable otherwise. She is an aspiration risk but denies any overt aspiration that she can recall. She is seen speech therapy and is supposed to have been trained on aspiration precautions with recommendation to follow-up with speech therapy as an outpatient. She reports not having any cough medicine yesterday and is willing to try this now. Review of Systems Review of Systems: All systems reviewed negative except as indicated above. Physical Exam Physical Exam: CONSTITUTIONAL: thin, frail, vitals as above, generally NAD EYES: normal conjunctivae, no scleral icterus ENT: external ear and nose normal, MMM NECK: trachea midline RESPIRATORY: clear to auscultation bilaterally, no crackles, rales or wheezes, normal respiratory effort CARDIOVASCULAR: regular rate and rhythm, S1 and 2 heard without murmurs, gallops or rubs, no JVD, no peripheral edema CHEST: inspection of chest was normal GASTROINTESTINAL: soft, nontender, ND, no guarding MUSCULOSKELETAL: strength 5/5 throughout, head is normocephalic and atraumatic SKIN: warm and dry, dry red rash in lower thoracic dermatome on the left NEUROLOGIC: CN 2-12 grossly intact, no sensory deficit, normal cognition, normal speech, no tremor PSYCHIATRIC: alert cooperative and oriented to person, place and time. Euthymic mood, makes good eye contact, language grossly intact. Results & Data Results & Data ([facility]) Vital Signs (Past 12 Hours) Vital Signs Temp Pulse Resp BP Pulse Ox O2 Del Method 01/22/22 10:33 Room Air 01/22/22 07:59 88 18 91 Room Air 01/22/22 07:29 36.3 C L 74 16 170/83 H 92 Room Air Medications Administered Current Inpatient Medications Acetaminophen (Acetaminophen 325 Mg Tab) 650 mg PO Q4H PRN PRN Reason: Pain or Fever Stop: 02/11/22 14:43 Amiodarone HCl (Amiodarone 200 Mg Tab) [address] [facility] Stop: 02/12/22 08:59 Last Admin: 01/22/22 09:23 Dose: 200 mg Aspirin (Aspirin 81 Mg Ectab) [facility] Stop: 02/12/22 08:59 Last Admin: 01/22/22 09:23 Dose: 81 mg Calcium Carbonate (Calcium Carbonate 1250mg Tab) 1,250 mg PO BIDM [facility] Stop: 02/11/22 16:59 Last Admin: 01/20/22 08:39 Dose: 1,250 mg Docusate Sodium (Docusate Sodium 100 Mg Cap) 100 mg PO BID [facility] Stop: 02/11/22 20:59 Last Admin: 01/22/22 09:23 Dose: 100 mg Donepezil HCl (Donepezil Hcl 5 Mg Tab) 5 mg PO BID [facility] Stop: 02/11/22 20:59 Last Admin: 01/22/22 09:24 Dose: 5 mg Ferrous Sulfate (Ferrous Sulfate 325 Mg Tab) 325 mg PO BIDM [facility] Stop: 02/11/22 20:59 Last Admin: 01/19/22 19:42 Dose: 325 mg Furosemide (Furosemide 20 Mg Tab) 20 mg PO MoWeThSa@0900 [facility] Stop: 02/18/22 15:29 Last Admin: 01/22/22 09:26 Dose: 20 mg Furosemide (Furosemide 20 Mg Tab) 40 mg PO SuTuFr@0900 [facility] Stop: 02/20/22 08:59 Last Admin: 01/21/22 08:35 Dose: 40 mg Guaifenesin (Guaifenesin 600 Mg Tabcr) 600 mg PO Q12 [facility] Stop: 02/11/22 20:59 Last Admin: 01/22/22 09:23 Dose: 600 mg Guaifenesin/Codeine Phosphate (Guaifenesin/Codeine 200mg/20mg 10ml Udc) 10 ml PO Q6H PRN PRN Reason: Cough Stop: 02/20/22 16:26 Heparin Sodium (Porcine) (Heparin Sod 5,000 Unit/0.5 Ml Vial) 5,000 units SQ Q12 [facility] Stop: 02/19/22 20:59 Last Admin: 01/22/22 09:25 Dose: 5,000 units Ipratropium [place] (Ipratropium [place] Neb Soln 0.02% 2.5 Ml Vial) 0.5 mg INH Q6R PRN PRN Reason: sob/wheezing Stop: 02/11/22 14:59 Levalbuterol HCl (Levalbuterol 1.25mg/0.5ml Neb) 1.25 mg INH Q6R PRN PRN Reason: sob/wheezing Stop: 02/11/22 14:59 Lidocaine (Lidocaine 5% 1 Patch) 1 patch TD QAM PRN PRN Reason: pain Stop: 02/12/22 08:59 Lorazepam (Lorazepam 0.5 Mg Tab) 0.5 mg PO TID@0630,1500,2000 [facility] Stop: 02/11/22 14:59 Last Admin: 01/22/22 05:53 Dose: 0.5 mg Losartan Potassium (Losartan Potassium 25 Mg Tab) 25 mg PO DAILY [facility] Stop: 02/21/22 08:59 Last Admin: 01/22/22 10:08 Dose: 25 mg Magnesium Hydroxide (Magnesium Hydroxide Susp 30 Ml Udc) 30 ml PO Q12H PRN PRN Reason: Constipation Stop: 02/11/22 14:43 Metoprolol Tartrate (Metoprolol Tartrate 25 Mg Tab) 12.5 mg PO BID [facility] Stop: 02/11/22 20:59 Last Admin: 01/22/22 09:31 Dose: 12.5 mg Miscellaneous (Remove Lidoderm Patch) 1 each N/A DAILY@2100 [facility] Stop: 02/11/22 20:59 Last Admin: 01/21/22 20:04 Dose: 1 each Montelukast Sodium (Montelukast Sodium 10 Mg Tablet) 10 mg PO HS [facility] Stop: 02/11/22 20:59 Last Admin: 01/21/22 19:59 Dose: 10 mg Pantoprazole Sodium (Pantoprazole 40 Mg Tab) 40 mg PO BID [facility] Stop: 02/11/22 20:59 Last Admin: 01/22/22 09:24 Dose: 40 mg Polyethylene Glycol (Polyethylene (Miralax) 17 Gm Pack) 17 gm PO DAILY PRN PRN Reason: Constipation Stop: 02/11/22 14:43 Last Admin: 01/12/22 15:44 Dose: 17 gm Potassium Chloride (Potassium Chloride Crtab 20 Meq Tabcr) 20 meq PO QAM [facility] Stop: 02/19/22 08:59 Last Admin: 01/22/22 09:22 Dose: 20 meq Sertraline HCl (Sertraline Hcl 100 Mg Tablet) 200 mg PO QAM [facility] Stop: 02/12/22 08:59 Last Admin: 01/22/22 09:22 Dose: 200 mg Spironolactone (Spironolactone 12.5 Mg Tab) 12.5 mg PO DAILY [facility] Stop: 02/21/22 08:59 Last Admin: 01/22/22 10:08 Dose: 12.5 mg Umeclidinium/Vilanterol (Umeclidinium/Vilanterol 62.5/25mcg 7 Puffs/Inhaler) 1 puffs INH QAM [facility]; Protocol Stop: 02/12/22 08:59 Last Admin: 01/22/22 10:08 Dose: 1 puffs
[2022-01-22] MEDS ORDERED: guaiFENesin/CODEINE 100MG/10MG 5ML UDC PO STA (14:17)
[2022-01-22] MEDS: MONTELUKAST SODIUM 10 MG TABLET PO SCH (20:43)
[2022-01-22] MEDS: DOCUSATE SODIUM SYRUP 100 MG/10 ML UDC PO SCH (21:58)
[2022-01-22] MEDS: guaiFENesin SUGAR FREE 200 MG/10 ML UDC PO SCH (21:58)
[2022-01-22] MEDS: LANSOPRAZOLE 30 MG SOLTAB NG SCH (21:58)
[2022-01-23] MEDS: LORazepam 0.5 MG TAB PO SCH ×3 (05:54→21:31)
[2022-01-23] MEDS: METOPROLOL TARTRATE 25 MG TAB PO SCH ×2 (09:23→21:31)
[2022-01-23] MEDS: POTASSIUM CHLORIDE 20 MEQ/15 ML UDC PO SCH (09:23)
[2022-01-23] MEDS: ASPIRIN 81 MG ECTAB PO SCH (09:29)
[2022-01-23] MEDS: AMIODARONE 200 MG TAB PO SCH (09:29)
[2022-01-23] MEDS: DONEPEZIL HCL 5 MG TAB PO SCH ×2 (09:29→21:31)
[2022-01-23] MEDS: SERTRALINE HCL 100 MG TABLET PO SCH (09:29)
[2022-01-23] MEDS: LOSARTAN POTASSIUM 25 MG TAB PO SCH (09:30)
[2022-01-23] MEDS: SPIRONOLACTONE 12.5 MG TAB PO SCH (09:30)
[2022-01-23] MEDS: UMECLIDINIUM/VILANTEROL 62.5/25MCG 7 PUFFS/INHALER INH SCH (09:30)
[2022-01-23] MEDS: HEPARIN SOD 5,000 UNIT/0.5 ML VIAL SQ SCH ×2 (09:31→21:33)
[2022-01-23] MEDS: DOCUSATE SODIUM SYRUP 100 MG/10 ML UDC PO SCH ×2 (09:32→21:23)
[2022-01-23] MEDS: guaiFENesin SUGAR FREE 200 MG/10 ML UDC PO SCH ×4 (09:32→21:23)
[2022-01-23] MEDS: FUROSEMIDE 20 MG TAB PO SCH (09:33)
[2022-01-23] MEDS: LANSOPRAZOLE 30 MG SOLTAB NG SCH ×2 (09:40→21:32)
--- NOTE | 2022-01-23 14:40 | Hospitalist Progress Note ---
Date of Service January 23, 2022 Assessment & Plan (1) Acute respiratory failure: Plan: likely secondary to HFpEF possible component of Pneumonia, Acute COPD exacerbation Patient is 89 y/o F with PMH left breast cancer s/p left radical mastectomy, radiation pneumonitis, h/o right upper lobe lesion concerning for possible carcinoma s/p empiric radiation, asthma, COPD, HTN, PAF, anemia of chronic disease, and others listed below presented to ER for worsening SOB, cough. URI symptoms x 1 week. RSV 01/08/22 outpatient. Given prednisone taper, albuterol, one dose of Ceftriaxone 1gm IM. 01/11/22 started Augmentin BID x 10 days for possible superimposed pneumonia on CXR. 1 month ago hospitalization and treated for acute bronchitis, possible pneumonia, discharged on Augmentin and doxycycline. CT chest: 1. Significantly streak and motion compromised examination. 2. Cardiomegaly. 3. Left larger than right pleural effusions with dependent consolidation. These have modestly increased in size as compared to 12/14/2021. 4. Mild patchy airspace consolidation is seen in the left upper lobe. Correlate clinically for evidence of pneumonia/aspiration pneumonitis. 5. Fibrotic change at the right apex is similar to previous and likely related to previous radiation treatment. 6. Additional findings as above. Organizational Development Manager consulted, Dr. Reyes placed on Lasix 20mg IV BID, diuresed well, planned thoracentesis not performed, repeat CXR 01/18 also showing improvement also placed on Doxycycline course (completed) Xopenex/Atrovent nebs QID, Pulmicort Neb BID, Hypertonic Saline nebs BID, Mucinex BID usual Anoro Ellipta continued off oxygen supplementation started on Lasix 40mg and 20mg alternating dc saline nebs, DC pulmicort neb, change duoneb to PRN, cont anoro ellipta. Doing well, cont to monitor on the floor and medically stable for transfer back to [facility] Still with upper airway sounds and chronic cough? Trial of flonase nasal spray. She is on protonix already Possible residual side effect of recent infection with RSV vs esophageal dysphagia vs other cause-not clear at this time Would continue outpatient follow up with speech therapy and consider visit to ENT? (2) Acute heart failure with preserved ejection fraction: Plan: compensated now, was diuresed with intravenous furosemide this admission. (3) Esophageal dysphagia: Plan: s/p VFSS: suggestive of esophageal dysmotility reports food getting stuck in her sternal region after breakfast 01/18, pill stuck in her throat 01/19 CXR: no signs of food bolus GI consulted, no plans for EGD at this time Speech Therapy: changed diet to slippery, crush all meds in a carrier, strict aspiration precautions These recommendations were reviewed with her son. She still has a feeling of upper airway congestion that is bothering her and she is trying to expectorate something. Continue to try and ameliorate symptoms with flutter valve, inhalers, lozenges as needed and continue strict aspiration precautions. May need to follow-up with ENT or GI as outpatient. (4) Hypokalemia: Plan: 2/2 diuretic therapy which is resolved. (5) Elevated troponin: Plan: Reported midsternal chest pain, resolved after treatment in ER Troponin: 28.9. EKG without acute ST changes Likely demand ischemia (6) PAF (paroxysmal atrial fibrillation): Plan: Current sinus rhythm Continue amiodarone, metoprolol tartrate (7) HTN (hypertension): Plan: chronic, controlled. 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 Continue donezepil (9) Anemia of chronic disease: Plan: chronic, stable. Cont monitoring in outpatient setting. (10) Breast cancer, left: Plan: S/P left mastectomy H/O of lung carcinoma s/p radiation w radiation pneumonitis (11) Shingles: Plan: Rash with lesions that are dry/resolving and there is no crusting present any longer. Recent history of antivirals two weeks prior to admission, and she denies any pain. Plan DVT Prophylaxis Lovenox SQ DNR/DNI Follows with Dr Rodriguez for routine care Disposition return to [facility] as she is medically stable. per casework specialist: [facility] is not able to accommodate pts return until Monday due to pharmacy closure tomorrow and monday and staffing issues over the weekend. Prema Reyes DO [facility] Hospitalist Admission and Anticipated Discharge Date Admission Date: January 12, 2022 Subjective 89-year-old female presented with acute respiratory failure secondary to RSV infection and acute exacerbation of COPD in the setting of acute heart failure with preserved ejection fraction. She reports the ongoing upper airway moist cough where she is trying to "get the mucous up" However cough is nonproductive. This is the main thing she is bothered with today and she is looking forward to going home. Review of Systems Review of Systems: All systems were reviewed and negative except as indicated above. Physical Exam Physical Exam: CONSTITUTIONAL: thin, frail, vitals as above, generally NAD EYES: normal conjunctivae, no scleral icterus ENT: external ear and nose normal, MMM NECK: trachea midline, RESPIRATORY: clear to auscultation bilaterally, audible upper airway sounds, no crackles, rales or wheezes, normal respiratory effort CARDIOVASCULAR: regular rate and rhythm, S1 and 2 heard without murmurs, gallops or rubs, no JVD, no peripheral edema CHEST: inspection of chest was normal GASTROINTESTINAL: soft, nontender, ND, no guarding MUSCULOSKELETAL: strength 5/5 throughout, head is normocephalic and atraumatic SKIN: warm and dry, dry red rash in lower thoracic dermatome on the left NEUROLOGIC: CN 2-12 grossly intact, no sensory deficit, normal cognition, normal speech, no tremor PSYCHIATRIC: alert cooperative and oriented to person, place and time. Euthymic mood, makes good eye contact, language grossly intact. Results & Data Results & Data ([facility]) Vital Signs (Past 12 Hours) Vital Signs Temp Pulse Resp BP Pulse Ox O2 Del Method 01/23/22 10:58 Room Air 01/23/22 07:12 36.7 C 76 16 165/83 H 94 Room Air Medications Administered Current Inpatient Medications Acetaminophen (Acetaminophen 325 Mg Tab) 650 mg PO Q4H PRN PRN Reason: Pain or Fever Stop: 02/11/22 14:43 Amiodarone HCl (Amiodarone 200 Mg Tab) 200 mg PO [facility] Stop: 02/12/22 08:59 Last Admin: 01/23/22 09:29 Dose: 200 mg Aspirin (Aspirin 81 Mg Ectab) [facility] [place] Stop: 02/12/22 08:59 Last Admin: 01/23/22 09:29 Dose: 81 mg Calcium Carbonate (Calcium Carbonate 1250mg Tab) 1,250 mg PO BIDM COUNTS INCLUDE 234 BEDS AT THE [facility] Stop: 02/11/22 16:59 Last Admin: 01/20/22 08:39 Dose: 1,250 mg Docusate Sodium (Docusate Sodium 100 Mg Cap) 100 mg PO BID COUNTS INCLUDE 234 BEDS AT THE [facility] Stop: 02/11/22 20:59 Last Admin: 01/22/22 22:10 Dose: Not Given Docusate Sodium (Docusate Sodium Syrup 100 Mg/10 Ml Udc) 100 mg PO BID COUNTS INCLUDE 234 BEDS AT THE [facility] Stop: 02/21/22 20:59 Last Admin: 01/23/22 09:32 Dose: 100 mg Donepezil HCl (Donepezil Hcl 5 Mg Tab) 5 mg PO BID COUNTS INCLUDE 234 BEDS AT THE [facility] Stop: 02/11/22 20:59 Last Admin: 01/23/22 09:29 Dose: 5 mg Ferrous Sulfate (Ferrous Sulfate 325 Mg Tab) 325 mg PO BIDM COUNTS INCLUDE 234 BEDS AT THE [facility] Stop: 02/11/22 20:59 Last Admin: 01/19/22 19:42 Dose: 325 mg Furosemide (Furosemide 20 Mg Tab) 20 mg PO MoWeThSa@0900 COUNTS INCLUDE 234 BEDS AT THE [facility] Stop: 02/18/22 15:29 Last Admin: 01/22/22 09:26 Dose: 20 mg Furosemide (Furosemide 20 Mg Tab) 40 mg PO SuTuFr@0900 COUNTS INCLUDE 234 BEDS AT THE [facility] Stop: 02/20/22 08:59 Last Admin: 01/23/22 09:33 Dose: 40 mg Guaifenesin (Guaifenesin 600 Mg Tabcr) 600 mg PO Q12 COUNTS INCLUDE 234 BEDS AT THE [facility] Stop: 02/11/22 20:59 Last Admin: 01/22/22 22:10 Dose: Not Given Guaifenesin (Guaifenesin Sugar Free 200 Mg/10 Ml Udc) 200 mg PO QID COUNTS INCLUDE 234 BEDS AT THE [facility] Stop: 02/21/22 20:59 Last Admin: 01/23/22 12:56 Dose: Not Given Guaifenesin/Codeine Phosphate (Guaifenesin/Codeine 200mg/20mg 10ml Udc) 10 ml PO Q6H PRN PRN Reason: Cough Stop: 02/20/22 16:26 Heparin Sodium (Porcine) (Heparin Sod 5,000 Unit/0.5 Ml Vial) 5,000 units SQ Q12 COUNTS INCLUDE 234 BEDS AT THE [facility] Stop: 02/19/22 20:59 Last Admin: 01/23/22 09:31 Dose: 5,000 units Ipratropium Rillito (Ipratropium Rillito Neb Soln 0.02% 2.5 Ml Vial) 0.5 mg INH Q6R PRN PRN Reason: sob/wheezing Stop: 02/11/22 14:59 Lansoprazole (Lansoprazole 30 Mg Soltab) 30 mg NG BID [facility] Stop: 02/21/22 20:59 Last Admin: 01/23/22 09:40 Dose: Not Given Levalbuterol HCl (Levalbuterol 1.25mg/0.5ml Neb) 1.25 mg INH Q6R PRN PRN Reason: sob/wheezing Stop: 02/11/22 14:59 Lidocaine (Lidocaine 5% 1 Patch) 1 patch TD QAM PRN PRN Reason: pain Stop: 02/12/22 08:59 Lorazepam (Lorazepam 0.5 Mg Tab) 0.5 mg PO TID@0630,1500,2000 [facility] Stop: 02/11/22 14:59 Last Admin: 01/23/22 05:54 Dose: 0.5 mg Losartan Potassium (Losartan Potassium 25 Mg Tab) 25 mg PO DAILY [facility] Stop: 02/21/22 08:59 Last Admin: 01/23/22 09:30 Dose: 25 mg Magnesium Hydroxide (Magnesium Hydroxide Susp 30 Ml Udc) 30 ml PO Q12H PRN PRN Reason: Constipation Stop: 02/11/22 14:43 Metoprolol Tartrate (Metoprolol Tartrate 25 Mg Tab) 12.5 mg PO BID [facility] Stop: 02/11/22 20:59 Last Admin: 01/23/22 09:23 Dose: 12.5 mg Miscellaneous (Remove Lidoderm Patch) 1 each N/A DAILY@2100 [facility] Stop: 02/11/22 20:59 Last Admin: 01/22/22 22:10 Dose: 1 each Montelukast Sodium (Montelukast Sodium 10 Mg Tablet) 10 mg PO HS [facility] Stop: 02/11/22 20:59 Last Admin: 01/22/22 20:43 Dose: 10 mg Pantoprazole Sodium (Pantoprazole 40 Mg Tab) 40 mg PO BID [facility] Stop: 02/11/22 20:59 Last Admin: 01/22/22 22:10 Dose: Not Given Polyethylene Glycol (Polyethylene (Miralax) 17 Gm Pack) 17 gm PO DAILY PRN PRN Reason: Constipation Stop: 02/11/22 14:43 Last Admin: 01/12/22 15:44 Dose: 17 gm Potassium Chloride (Potassium Chloride Crtab 20 Meq Tabcr) 20 meq PO QAM [facility] Stop: 02/19/22 08:59 Last Admin: 01/22/22 09:22 Dose: 20 meq Potassium Chloride (Potassium Chloride 20 Meq/15 Ml Udc) 20 meq PO QAM [facility] Stop: 02/22/22 08:59 Last Admin: 01/23/22 09:23 Dose: 20 meq Sertraline HCl (Sertraline Hcl 100 Mg Tablet) 200 mg PO QAM [facility] Stop: 02/12/22 08:59 Last Admin: 01/23/22 09:29 Dose: 200 mg Spironolactone (Spironolactone 12.5 Mg Tab) 12.5 mg PO DAILY [facility] Stop: 02/21/22 08:59 Last Admin: 01/23/22 09:30 Dose: 12.5 mg Umeclidinium/Vilanterol (Umeclidinium/Vilanterol 62.5/25mcg 7 Puffs/Inhaler) 1 puffs INH QAM [facility]ILIA; Protocol Stop: 02/12/22 08:59 Last Admin: 01/23/22 09:30 Dose: 1 puffs
[2022-01-23] MEDS ORDERED: FLUTICASONE PROPIONATE NA SPR 16 GM BTL NAE SCH (18:00)
[2022-01-23] MEDS: MONTELUKAST SODIUM 10 MG TABLET PO SCH (21:33)
[2022-01-24] MEDS: LORazepam 0.5 MG TAB PO SCH (05:46)
[2022-01-24 07:27] VITALS: BP 159/78; TEMP 98.1; O2SAT 94
[2022-01-24] MEDS: DONEPEZIL HCL 5 MG TAB PO SCH (08:25)
[2022-01-24] MEDS: FUROSEMIDE 20 MG TAB PO SCH (08:26)
[2022-01-24] MEDS: AMIODARONE 200 MG TAB PO SCH (08:26)
[2022-01-24] MEDS: LANSOPRAZOLE 30 MG SOLTAB NG SCH (08:26)
[2022-01-24] MEDS: ASPIRIN 81 MG ECTAB PO SCH (08:27)
[2022-01-24] MEDS: SPIRONOLACTONE 12.5 MG TAB PO SCH (08:27)
[2022-01-24] MEDS: SERTRALINE HCL 100 MG TABLET PO SCH (08:27)
[2022-01-24] MEDS: LOSARTAN POTASSIUM 25 MG TAB PO SCH (08:27)
[2022-01-24] MEDS: guaiFENesin SUGAR FREE 200 MG/10 ML UDC PO SCH (08:28)
[2022-01-24] MEDS: HEPARIN SOD 5,000 UNIT/0.5 ML VIAL SQ SCH (08:28)
[2022-01-24] MEDS: METOPROLOL TARTRATE 25 MG TAB PO SCH (08:28)
[2022-01-24] MEDS: DOCUSATE SODIUM SYRUP 100 MG/10 ML UDC PO SCH (08:31)
[2022-01-24] MEDS: UMECLIDINIUM/VILANTEROL 62.5/25MCG 7 PUFFS/INHALER INH SCH (08:32)
[2022-01-24] MEDS: POTASSIUM CHLORIDE 20 MEQ/15 ML UDC PO SCH (08:32)
[2022-01-24] MEDS ORDERED: AMOXICILLIN/CLAVULANATE 875 MG TAB PO SCH (10:00)
[2022-01-24 11:39] VITALS: PULSE 18
--- NOTE | 2022-01-24 13:27 | XRay Report ---
SINGLE VIEW CHEST CLINICAL HISTORY: Pneumonia. FINDINGS: An AP, portable, upright chest radiograph is compared to study dated 01/18/2022 and correla suzanne with chest CT dated 01/13/2022. The cardiomediastinal silhouette is unremarkable noting atheroscl erotic calcification of the thoracic aorta. The mitral annulus is densely calcified. Fibrotic change at the right apex is similar to previous and likely related to previous radiation treatment. There is persistent left pleural effusion with left basilar consolidation. No large pleural effusion is seen on the right. There are scattered calcified granulomas and foci of parenchymal scarring. No pneumotho rax is seen. The bony thorax is grossly intact. Advanced arthritic changes in the shoulders with defo rmity of the right humeral head. Degenerative changes scoliosis noted in the spine. IMPRESSION: 1. A layering left pleural effusion with left basilar consolidation is similar to previous. 2. Fibrotic change is again noted at the right apex. ACT 112: Negative or not required by law. Electronically signed by: Ab Boston M.D. 01/24/2022 1:26 PM
--- NOTE | 2022-01-24 18:13 | Discharge Summary ---
Date of Service January 24, 2022 Admission HPI Per Admitting Provider Patient is 89 y/o F with PMH left breast cancer s/p left radical mastectomy, radiation pneumonitis, h/o right upper lobe lesion concerning for possible carcinoma s/p empiric radiation, asthma, COPD, HTN, PAF, anemia of chronic disease, and others listed below presented to ER for SOB. Patient has been having cough, exertional shortness of breath for 1 week. 01/08/22 PCP office for symptoms of cough, chills, SOB, wheezing. Was given prednisone taper, albuterol, one dose of Ceftriaxone 1gm IM. Had Positive RSV, negative COVID-19. 01/11/22 was given Rx for Augmentin BID x 10 days for possible superimposed pneumonia on CXR. Was also instructed to increase Lasix to 40mg BID and increase potassium 2 tabs BID x 5 days then resume current dose secondary to evidence of CHF on CXR (unsure if this was started, [facility] records show Lasix 20mg daily). Today with increased shortness of breath and had reported hypoxia at [facility] today dropped to 70's and was referred to ER. EMS reported O2 sat 88% and was given neb treatment. Patient states this morning with mid sternal chest pain has resolved after treatment in ER. Reports no BM in 3-4 days, denies abdominal pain. Diagnosed with shingles to left flank couple of weeks ago and treated with valacyclovir. In ER given albuterol nebulizer treatment and after was reported to desat down to 70% on room air with ambulating to bathroom. Denies fever, diaphoresis, N/V/D, MILNER, dizziness, syncope, vision changes, neck pain, palpitations, hemoptysis, choking, otalgia, rhinorrhea, paresthesias, extremity weakness, extremity edema, rashes, urinary symptoms. Recent history recurrent hospitalizations, most recent admission 12/14/2021- 12/16/2021 for acute bronchitis, possible RUL infiltrate. CT chest at that time was negative for PE, questioned RUL infiltrate versus underlying malignancy. Was treated with Zosyn, doxycycline. Discharged on Augmentin and doxycycline. History hospital admission 11/29/2021-12/02/2021 for acute T12 burst fracture, T10-T11 fracture s/p fall, s/p kyphoplasty 11/30/2021 History hospital admission 11/12/2021-11/19/2021 COVID-19 treated with steroids, remdesivir, COPD exacerbation in setting of COVID, acute on chronic diastolic heart failure Admission Exam Per Admitting Provider General: no acute distress, WDWN elderly female Head: normocephalic, atraumatic Eyes: PERRL, EOM's intact, conjunctiva non-injected, anicteric ENT: normal inspection external ears, nose, mucous membranes moist Neck: supple, trachea midline Lungs: no respiratory distress on current 2L O2 via NC, +diffuse wheezing and rhonchi throughout CV: RRR, + murmur, no pretibial edema Abd: normal BS, soft, non-tender Ext: no cyanosis, no calf tenderness Neuro: A&O x 3, no focal deficits noted, normal affect Skin: warm, dry Principal Diagnosis Acute hypoxic respiratory failure secondary to HFpEF, possible bronchitis/ pneumonia Discharge Exam Constitutional WD/WN, vitals as above no acute distress Respiratory normal respiratory effort and + cough (Moist, nonproductive); no respiratory distress Auscultation: + rhonchi (scattered) Cardiovascular Rate/Rhythm: regular rate and regular rhythm Vessels: normal peripheral pulses Extremities: no edema Gastrointestinal (Abdomen) Percussion/Palpation: abdomen soft; abdomen nontender Skin no rashes, warm and dry Neurologic no focal motor deficits Psychiatric A+Ox3, euthymic affect Insight: + limited insight Discharge Data Allergies Allergy/AdvReac Type Severity Reaction Status Date / Time bee venom protein (honey bee) Allergy Severe ANAPHYLAXIS Verified 12/14/21 01:31 Consultations 01/13/22 12:11 Consult Pulmonology Routine 01/18/22 10:21 Consult Gastroenterology Routine Ordered Studies Laboratory Results WBC 3.64 K/ul (4.8-10.8) L 01/21/22 10:41 RBC 4.15 M/uL (3.93-5.22) 01/21/22 10:41 Hgb 10.8 g/dl (12.0-16.0) L 01/21/22 10:41 Hct 34.6 % (34.1-44.9) 01/21/22 10:41 MCV 83.4 fL (80.0-100.0) 01/21/22 10:41 MCH 26.0 pg (25.0-34.0) 01/21/22 10:41 MCHC 31.2 g/dL (32.0-36.0) L 01/21/22 10:41 RDW Std Deviation 71.7 fL (36.4-46.3) H 01/21/22 10:41 RDW Coeff of [place] 23.6 % (11.5-14.5) H 01/21/22 10:41 Plt Count 248 K/uL (130-400) 01/21/22 10:41 MPV 10.9 fL (9.4-12.3) 01/21/22 10:41 Immature Gran % (Auto) 0.7 % 01/12/22 09:20 Neut % (Auto) 84.9 % 01/12/22 09:20 Lymph % (Auto) 7.1 % 01/12/22 09:20 [place] % (Auto) 6.7 % 01/12/22 09:20 Eos % (Auto) 0.0 % 01/12/22 09:20 Baso % (Auto) 0.6 % 01/12/22 09:20 Neut # (Auto) 4.53 K/uL (1.4-6.5) 01/12/22 09:20 Lymph # (Auto) 0.38 K/uL (1.2-3.4) L 01/12/22 09:20 [place] # (Auto) 0.36 K/uL (0.24-0.82) 01/12/22 09:20 Eos # (Auto) 0.00 K/uL (0-0.50) 01/12/22 09:20 Baso # (Auto) 0.03 K/uL (0-0.2) 01/12/22 09:20 Immature Gran # (Auto) 0.04 K/uL (0.00-0.02) H 01/12/22 09:20 Polychromasia 1+ 01/12/22 09:20 Anisocytosis Present 01/12/22 09:20 Sodium 134 mmol/L (136-145) L 01/21/22 10:41 Potassium 3.9 mmol/L (3.5-5.1) 01/21/22 10:41 Chloride 97 mmol/L (98-107) L 01/21/22 10:41 Carbon Dioxide 32 mmol/L (21-32) 01/21/22 10:41 Anion Gap 5 (3-11) 01/21/22 10:41 BUN 18 mg/dl (6-23) 01/21/22 10:41 Creatinine 0.78 mg/dl (0.6-1.2) 01/21/22 10:41 Est Cr Clr Drug Dosing 33.0 ml/min 01/21/22 10:41 Est GFR ( Amer) 78.1 ml/min 01/21/22 10:41 Est GFR (Non-Af Amer) 67.4 ml/min 01/21/22 10:41 BUN/Creatinine Ratio 23.1 (10-20) H 01/21/22 10:41 Glucose 91 mg/dl (70-99(Fasting)) 01/21/22 10:41 Lactate 1.6 mmol/L (0.4-2.0) 01/12/22 09:30 Calcium 8.7 mg/dl (8.5-10.1) 01/21/22 10:41 Magnesium 1.7 mg/dl (1.7-2.4) 01/12/22 15:23 Total Bilirubin 0.6 mg/dl (0.2-1.0) 01/12/22 09:20 AST 23 U/L (13-39) 01/12/22 09:20 ALT 15 U/L (7-52) 01/12/22 09:20 Alkaline Phosphatase 75 U/L (34-104) 01/12/22 09:20 Troponin I High Sens 22.3 pg/ml (0-14) H 01/13/22 03:42 B-Natriuretic Peptide 1676 pg/ml (0-100) H 01/12/22 09:20 Total Protein 6.5 gm/dl (6.0-8.3) 01/12/22 09:20 Albumin 3.6 gm/dl (3.4-5.0) 01/12/22 09:20 Globulin 2.9 gm/dl (2.5-4.0) 01/12/22 09:20 Albumin/Globulin Ratio 1.2 (0.9-2) 01/12/22 09:20 Procalcitonin 0.13 ng/ml (0-0.5) 01/12/22 15:23 Urine Color Dark Yellow 01/12/22 Unknown Urine Appearance Clear (Clear) 01/12/22 Unknown Urine pH 5.5 (4.5-7.5) 01/12/22 Unknown Ur Specific [place] 1.024 (1.000-1.030) 01/12/22 Unknown Urine Protein 3+ (Negative) H 01/12/22 Unknown Urine Glucose (UA) Negative (Negative) 01/12/22 Unknown Urine Ketones Trace (Negative) H 01/12/22 Unknown Urine Blood Trace (Negative) H 01/12/22 Unknown Urine Nitrite Negative (Negative) 01/12/22 Unknown Urine Bilirubin Negative (Negative) 01/12/22 Unknown Urine Urobilinogen Negative (Negative) 01/12/22 Unknown Ur Leukocyte Esterase Negative (Negative) 01/12/22 Unknown Urine WBC (Auto) 1-5 /hpf (0-5) 01/12/22 Unknown Urine RBC (Auto) 5-10 /hpf (0-4) H 01/12/22 Unknown U Hyaline Cast (Auto) 10-30 /lpf (0-5) H 01/12/22 Unknown U Epithel Cells (Auto) 20-30 /lpf (0-5) H 01/12/22 Unknown Urine Bacteria (Auto) Negative (Negative) 01/12/22 Unknown Nasal Screen MRSA (PCR) Negative (Negative) 01/12/22 15:55 SARS-CoV-2, RNA, NAAT NEGATIVE (NEGATIVE) 01/12/[address] 01/13/22 10:27 CT SCAN OF THE CHEST WITHOUT IV CONTRAST CLINICAL HISTORY: Hypoxia. Pneumonia. COMPARISON STUDY: Chest x-ray dated 01/12/2022. Chest CT dated 12/14/2021. TECHNIQUE: CT scan of the thorax was performed from the thoracic inlet to the upper abdomen. Images are reviewed in the axial, sagittal, and coronal planes. IV contrast was not administered for this examination as per the referring clinician. A dose lowering technique was utilized adhering to the principles of ALARA. The examination is degraded by motion artifact, as well as by streak artifact from the arms which could not be elevated above the chest. CT DOSE: 195.38 mGy.cm FINDINGS: Thyroid: Imaged portions of the thyroid gland are normal in size and attenuation. Thoracic aorta: There is atherosclerotic calcification of the thoracic into. There is ectasia of the ascending thoracic aorta which measures up to 3.8 cm in diameter. The remainder of the thoracic aorta is normal in caliber comment the arch demonstrates standard 3-vessel anatomy. Heart: The heart is mildly enlarged and without pericardial effusion. The mitral annulus is densely calcified. The main pulmonary arteries appear dilated suggesting pulmonary artery hypertension. Lungs and pleural spaces: Evaluation of the lung parenchyma is significantly compromised by motion artifact. There are small right and moderate left pleural effusions with associated consolidation. Fibrotic change at the right apex is similar to previous and likely related to previous radiation treatment. Mild patchy airspace consolidation is seen in the left upper lobe. Segmental atelectasis is noted in the lingula. Foci of intraluminal debris/mucus plugging are seen in the left lower lobe airways. There are scattered calcified granulomas. Mediastinum: Grossly clear but not well assessed. Jackie: Not well assessed without IV contrast. Axillae: There is no axillary lymphadenopathy. Upper abdomen: There are calcified splenic granulomas. Nodularity of the left adrenal gland is is likely unchanged. Partially visualized upper abdominal viscera is otherwise grossly unremarkable. Skeletal structures: The skeletal structures are osteopenic. There are compression deformities of T11 and T12 with evidence of previous vertebroplasty, retropulsed fragments, and corresponding hyperkyphosis. This is similar to previous. Chronic changes within the right upper ribs is similar to previous. No lytic or blastic bony lesions it is clearly seen. Advanced arthritic change is seen in the shoulders. Soft tissues: There is evidence of previous left mastectomy. IMPRESSION: 1. Significantly streak and motion compromised examination. 2. Cardiomegaly. 3. Left larger than right pleural effusions with dependent consolidation. These have modestly increased in size as compared to 12/14/2021. 4. Mild patchy airspace consolidation is seen in the left upper lobe. Correlate clinically for evidence of pneumonia/aspiration pneumonitis. 5. Fibrotic change at the right apex is similar to previous and likely related to previous radiation treatment. 6. Additional findings as above. ACT 112: Negative or not required by law. Electronically signed by: Ab Boston M.D. 01/13/2022 11:50 AM Videofluoroscopic Swallow 01/14/22 13:00 VIDEO SWALLOW STUDY CLINICAL HISTORY: Aspiration. COMPARISON STUDY: Barium esophagram dated 11/26/2018. Fluoroscopy time: 3.2 minutes. FINDINGS: Fluoroscopic guidance is provided to the department by speech pathology and performing a video swallow study. The patient consumed barium impregnated pudding, cracker with paste, thickened liquids, and thin barium. Only swallowing mechanism was observed in real-time. No penetration or aspiration was seen with any of the sample textures. There was vallecular retention with the more solid textures. Esophageal dysmotility and gastroesophageal reflux were observed during the examination. IMPRESSION: 1. No penetration or aspiration was seen with any of the sample textures. 2. Subjective dysmotility and gastroesophageal reflux. 3. See dedicated speech pathology report for detailed findings and recommendations. Dictated: 01/14/2022 3:10 PM Transcribed: 01/14/2022 5:25 PM Jaz [id number] [facility] Electronically signed by: Ab Boston M.D. 01/14/2022 6:22 PM Chest X-Ray 01/24/22 08:44 SINGLE VIEW CHEST CLINICAL HISTORY: Pneumonia. FINDINGS: An AP, portable, upright chest radiograph is compared to study dated 01/18/2022 and correlated with chest CT dated 01/13/2022. The cardiomediastinal silhouette is unremarkable noting atherosclerotic calcification of the thoracic aorta. The mitral annulus is densely calcified. Fibrotic change at the right apex is similar to previous and likely related to previous radiation treatment. There is persistent left pleural effusion with left basilar consolidation. No large pleural effusion is seen on the right. There are scattered calcified granulomas and foci of parenchymal scarring. No pneumothorax is seen. The bony thorax is grossly intact. Advanced arthritic changes in the shoulders with deformity of the right humeral head. Degenerative changes scoliosis noted in the spine. IMPRESSION: 1. A layering left pleural effusion with left basilar consolidation is similar to previous. 2. Fibrotic change is again noted at the right apex. ACT 112: Negative or not required by law. Electronically signed by: Ab Boston M.D. 01/24/2022 1:26 PM Hospital Course (1) Acute respiratory failure: likely secondary to HFpEF possible component of bronchitis/Pneumonia, Acute COPD exacerbation Patient is 89 y/o F with PMH left breast cancer s/p left radical mastectomy, radiation pneumonitis, h/o right upper lobe lesion concerning for possible carcinoma s/p empiric radiation, asthma, COPD, HTN, PAF, anemia of chronic disease, and others listed below presented to ER for worsening SOB, cough. URI symptoms x 1 week. RSV 01/08/22 outpatient. Given prednisone taper, albuterol, one dose of Ceftriaxone 1gm IM. 01/11/22 started Augmentin BID x 10 days for possible superimposed pneumonia on CXR. 1 month ago hospitalization and treated for acute bronchitis, possible pneumonia, discharged on Augmentin and doxycycline. CT chest: 1. Significantly streak and motion compromised examination. 2. Cardiomegaly. 3. Left larger than right pleural effusions with dependent consolidation. These have modestly increased in size as compared to 12/14/2021. 4. Mild patchy airspace consolidation is seen in the left upper lobe. Correlate clinically for evidence of pneumonia/aspiration pneumonitis. 5. Fibrotic change at the right apex is similar to previous and likely related to previous radiation treatment. 6. Additional findings as above. Pulmonology consulted placed on Lasix 20mg IV BID, diuresed well, planned thoracentesis not performed, repeat CXR 01/18 also showing improvement Received short courses of cefepime and doxycycline while admitted, will discharge on 7-day course of Augmentin due to ongoing cough Received pulmonary toilet with Xopenex/Atrovent nebs QID, Pulmicort Neb BID, Hypertonic Saline nebs BID, Mucinex BID Off oxygen supplementation Started on PO daily Lasix 40mg and 20mg alternating Ongoing chronic cough --etiology unclear, possible residual side effect of recent infection with RSV vs esophageal dysphagia vs other cause-not clear at this time Trial of Flonase, Mucinex twice daily. Patient is on PPI already. (2) Esophageal dysphagia: s/p VFSS: suggestive of esophageal dysmotility GI consulted, no plans for EGD at this time Speech Therapy: changed diet to slippery, crush all meds in a carrier, strict aspiration precautions Recommend outpatient follow-up with speech therapy and GI re: esophageal dysphagia (3) Hypokalemia: 2/2 diuretic therapy which is resolved (4) Elevated troponin: Reported midsternal chest pain, resolved after treatment in ER Troponin: 28.9. EKG without acute ST changes Likely demand ischemia (5) PAF (paroxysmal atrial fibrillation): Continue amiodarone, metoprolol tartrate Not anticoagulated due to high bleeding risk and chronic anemia (6) HTN (hypertension): Chronic, controlled. Continue losartan, metoprolol tartrate. (7) Senile degeneration of brain: Functional, conversational with minimal deficits. Continue donepezil. (8) Anemia of chronic disease: Chronic, stable. Cont monitoring in outpatient setting. (9) Breast cancer, left: S/P left mastectomy H/O of lung carcinoma s/p radiation w radiation pneumonitis (10) Shingles: Rash with lesions that are dry/resolving and there is no crusting present any longer. Recent history of antivirals two weeks prior to admission, and she denies any pain. Total Time Total Time Spent Total Time Spent (In Minutes): 45 Discharge Plan Discharge Items Patient Disposition: Personal Shelter Reason For Visit: Shortness of Breath Discharge Diagnosis: Acute on Chronic HFpEF Possible bronchitis/pneumonia Activity: Resume your previous activity Non-emergency contact: Primary Care Provider Call non-emergency contact if: you have any medication questions, your symptoms worsen, your pain is not controlled and you have a fever Follow-up/Referrals: Bear Rodriguez MD [Outside Practitioners] - (Date & Time 01/31/2022 3:00 PM Provider Bear Rodriguez MD Department [facility] ) [facility] [Primary Care Provider] - Diet: Heart Healthy and Low Sodium (2gm) Addtl Attending Provider Instructions: Patient presented with shortness of breath and was hypoxic in the ED. Treated for acute CHF with IV diuresis - home Lasix increased to Lasix 40mg daily alternating with 20mg daily Also treated for possible bronchitis/pneumonia - will discharge on Augmentin to complete a 7 day course. Patient had ongoing chronic cough during admission, etiology unclear - ? residual effect of RSV infection/bronchitis vs. esophageal dysphagia vs. GERD -- started on Flonase and Mucinex. Will need to follow up with GI and speech therapy as an outpatient. Recommend continuing pulmonary toilet with flutter valve and incentive spirometry. Call your Primary Care doctor if any of the following symptoms or problems start or get worse: * Shortness of breath or difficulty breathing * Wake up at night short of breath * Chest pain * Cough * Swelling of your hands, feet, or legs * More fatigued or tired with your normal activity * Palpitations - sudden fast heart beats WEIGHT * Weigh yourself every morning after using the bathroom. * Use the same scale. * Wear the same amount of clothing. * Write your weight down on a chart. * Call your Primary Care doctor if you gain more than 2-3 pounds in 1-2 days. MEDICATIONS * Use this discharge instruction sheet for medication instructions. * Take your medications at the time your doctor ordered. * Do not skip a dose of your medicines. * If you miss a dose of medicine, take it as soon as possible, but DO NOT DOUBLE A DOSE. * Read your medicine information when you get home. * Know all of the side effects of your medicine. If in doubt, ask your pharmacist * Call your Primary Care doctor's office if you have any side effects. * Be sure all of your doctors know what medicine and herbs you take (including cold, flu, and herbal medicine). Take the following with you to your follow-up doctor appointments: * Weight Chart * Medication List * List of questions Do not drink excessive alcohol, beer or wine. Pending Studies at Discharge: No Stand-Alone Forms: [email or web address], Smoking Cessation Skilled Items Patient informed of condition?: Yes DNR: Yes Discharge Level of Care: Other Communicable Disease: No Discharge Prognosis: Stable Lines: None Urinary Catheter: No Medications and DC Order Prescriptions: New furosemide 20 mg Tablet 40 mg PO SuTuFr@0900 Qty: 30 0RF furosemide 20 mg Tablet 20 mg PO MoWeThSa@0900 Qty: 15 0RF fluticasone propionate 50 mcg/actuation [place],Suspension 2 spray CLEMENTINA Q24H Qty: 1 0RF amoxicillin-pot clavulanate 875-125 mg Tablet 1 tab PO BIDM Qty: 13 0RF guaifenesin [Mucinex] 600 mg Tablet Extended Release 12hr 600 mg PO Q12 Qty: 14 0RF Continued aspirin 81 mg Tablet,Delayed Release (Dr/Ec) 81 mg PO QAM Stiolto Respimat 2.5-2.5 mcg/actuation Mist 1 puff INHALATION QAM montelukast 10 mg tablet 10 mg PO HS Rx Instructions: TAKE 1 TABLET BY MOUTH EVERYDAY AT BEDTIME donepezil 5 mg Tablet 5 mg PO BID lorazepam 0.5 mg Tablet 0.5 mg PO TID Rx Instructions: TAKES AT 0630, 1500 & 2000. docusate sodium [Colace] 100 mg Capsule 100 mg PO BID calcium carbonate 500 mg calcium (1,250 mg) Tablet,Chewable 500 mg PO BID Rx Instructions: TAKE PRIOR TO BREAKFAST AND DINNER amiodarone 200 mg tablet 200 mg PO QAM pantoprazole 40 mg tablet,delayed release (DR/EC) 40 mg PO BID metoprolol tartrate 25 mg tablet 12.5 mg PO BID acetaminophen [Tylenol] 325 mg Tablet 650 mg PO Q4H PRN (Reason: PAIN/FEVER) epinephrine [EpiPen] 0.3 mg/0.3 mL Auto-Injector 0.3 mg IM DIRECTED PRN (Reason: Allergic Reaction) lidocaine 5 % adhesive patch,medicated 1 patch transdermal QAM Rx Instructions: ON 12 HOURS, OFF 12 HOURS. levalbuterol HCl 1.25 mg/3 mL Solution For Nebulization 1.25 mg NEB Q4H PRN (Reason: shortness of breath or wheezing) Qty: 36 0RF ferrous sulfate 325 mg (65 mg iron) Tablet 325 mg PO BID 30 Days Qty: 60 0RF albuterol sulfate 90 mcg/actuation HFA aerosol inhaler 2 puff INHALATION Q4H PRN (Reason: Shortness Of Breath Or Wheezing) spironolactone 25 mg tablet 12.5 mg PO DAILY losartan 25 mg tablet 25 mg PO DAILY sertraline 100 mg tablet 200 mg PO QAM potassium chloride 10 mEq Tablet,Er Particles/Crystals 10 meq PO DAILY Qty: 30 0RF Discontinued guaifenesin 200 mg Tablet 400 mg PO TID PRN (Reason: CHEST CONGESTION) furosemide 20 mg tablet 20 mg PO DAILY prednisone 10 mg tablet 10 mg PO UD Rx Instructions: Started 01/08/22. 50mg daily x 2 days, 40mg daily x 2 days, 30mg daily x 2 days, 20mg daily x 2 days, 10mg x 2 days amoxicillin-pot clavulanate 875-125 mg tablet 1 tab PO BID Rx Instructions: 10 day course, Started on 01/11/22 Discharge Orders: Discharge Order (Routine); Ordered 01/24/22 Ordered By: Angelica Cruz Admission Data Admit Date/Time: 01/12/22 13:32 Attending Provider: Prema Reyes Admit Provider: Prema Reyes [facility] Other Providers: Prema Reyes ; Paul Reyes ; Seble Chaparro Other Interventions: Discharge Summary Assessment (RN) Last Done: 01/24/22 11:29
== END 2022-01-24 14:23 | disposition home or self-care (01) | DRG 291 ==
LOC: ED 08:55 → SUATTDRO 13:32 → 4W 13:32 → 3W 01-21 22:23

== ENCOUNTER 2022-03-07 09:30 | Inpatient (IN) ==
[2022-03-07] MEDS ORDERED: ALBUT/IPRATROP 3MG/0.5MG NEB 3 ML VIAL NEB STA (10:13)
[2022-03-07] MEDS ORDERED: predniSONE 50 MG TAB PO ONE (10:13)
--- NOTE | 2022-03-07 10:38 | XRay Report ---
XR chest 1V portable CLINICAL HISTORY: Shortness of breath. COMPARISON STUDY: Chest radiograph January 24, [address] January 13, 2022. FINDINGS: Interstitial pulmonary edema has developed. Moderate left and small right pleural effusions are noted with bibasilar opacities, greater on the left. Right apical opacity is unchanged and may r eflect post treatment change. Degenerative changes of both glenohumeral joints are incidentally noted . No pneumothorax. IMPRESSION: 1. Interval development of pulmonary edema. 2. Moderate left and small right pleural effusions which likely reflect atelectasis. Consolidation co uld appear similar. Radiographic follow-up is recommended. ACT 112: Negative or not required by law. Electronically signed by: Kemal Elizabeth M.D. 03/07/2022 10:36 AM
[2022-03-07 10:50] LABS: Basophils # (auto) 0.06 K/uL (0-0.2); Eosinophils # (auto) 0.03 K/uL (0-0.50); Eosinophils % (auto) 0.5 %; Hematocrit (blood only) 37.4 % (34.1-44.9); Hemoglobin 11.8 g/dl (12.0-16.0); Immature Granulocytes # (auto) 0.03 K/uL (0.00-0.02); Immature Granulocytes % (auto) 0.5 %; Lymphocytes # (auto) 0.47 K/uL (1.2-3.4); Lymphocytes % (auto) 7.5 %; Mean Corpuscular Hemoglobin 28.6 pg (25.0-34.0); Mean Corpuscular Hgb Conc 31.6 g/dL (32.0-36.0); Mean Corpuscular Volume 90.6 fL (80.0-100.0); Monocytes # (auto) 0.44 K/uL (0.24-0.82); Monocytes % (auto) 7.1 %; Neutrophils % (auto) 83.4 %; Platelet Count 268 K/uL (130-400); RDW Coefficient of Variation 19.3 % (11.5-14.5); RDW Standard Deviation 63.9 fL (36.4-46.3); Red Blood Count 4.13 M/uL (3.93-5.22); White Blood Count 6.23 K/ul (4.8-10.8)
[2022-03-07 10:54] LABS: Base Excess VBG 8.6 mEq/L; HCO3 VBG 36 mmol/L; Oxygen Saturation VBG < 60.0 %; PCO2 VBG 66 mmHg (38-50); PO2 VBG 21 mmHg; pH VBG 7.35 (7.36-7.41)
[2022-03-07 11:04] LABS: Influenza A virus by PCR Negative (Neg); Influenza B virus by PCR Negative (Neg); RSV by PCR Negative (Neg); SARS CoV2 RNA(COVID-19) Ceph NEGATIVE (Negative)
[2022-03-07 11:13] LABS: INR 1.1 (0.9-1.1); Partial Thromboplastin Ratio 0.9; Partial Thromboplastin Time 26.1 Seconds (21.0-31.0); Prothrombin Time 11.2 Seconds (9.0-12.0)
[2022-03-07 11:19] LABS: Troponin I High Sensitivity 20.9 pg/ml (0-14)
[2022-03-07 11:27] LABS: Alanine Aminotransferase 12 U/L (7-52); Albumin Level 3.7 gm/dl (3.4-5.0); Alkaline Phosphatase 66 U/L (34-104); Anion Gap 6 (3-11); Aspartate Aminotransferase 23 U/L (13-39); BUN Creatinine Ratio 24.4 (10-20); Bilirubin Direct 0.1 mg/dl (0-0.2); Bilirubin,Total 0.6 mg/dl (0.2-1.0); Blood Urea Nitrogen 19 mg/dl (6-23); Calcium 9.1 mg/dl (8.5-10.1); Carbon Dioxide 34 mmol/L (21-32); Chloride 101 mmol/L (98-107); Est GFR (African American) 78.1 ml/min; Est GFR (Non-African American) 67.4 ml/min; Glucose 81 mg/dl (70-99(Fasting)); Lipase 44 U/L (11-82); Magnesium 1.9 mg/dl (1.7-2.4); Potassium 3.3 mmol/L (3.5-5.1); Sodium 141 mmol/L (136-145); Total Protein 6.9 gm/dl (6.0-8.3)
[2022-03-07] MEDS ORDERED: FUROSEMIDE 40 MG/4 ML VIAL IV ONE (12:36)
--- NOTE | 2022-03-07 13:16 | History & Physical Report ---
Date of Service March 07, 2022 Assessment & Plan (1) (HFpEF) heart failure with preserved ejection fraction: (2) PAF (paroxysmal atrial fibrillation): (3) Hypertension: (4) COPD (chronic obstructive pulmonary disease): (5) Anemia of chronic disease: (6) Cancer: (7) Depression, unspecified: (8) Senile degeneration of brain: Plan HFpEF: Numerous recent admissions Takes Metoprolol, Aldactone, Furosemide, PO KCl Recent echocardiogram 01/12/22; EF 65 to 70%, left atrium severely dilated, mild MS, mild TR, moderate MR, severe pulmonary hypertension monitor on tele. Lasix 40 mg IV twice daily DuoNebs 4 times daily plus every 2 as needed Methylprednisolone ordered PT/OT Potassium replacement. K3.3; 40 p.o. administered; recheck in a.m. Fluid restriction 1800 mL EKG in a.m. Chest x-ray in a.m. Cardiology consult Paroxysmal Atrial Fibrillation: HTN: rate/rhythm controlled on amiodarone and metoprolol 12.5 PO BID no oral anticoagulation in setting of chronic anemia at this point Continue Losartan COPD (chronic obstructive pulmonary disease) Continue maintenance inhaler.; Megha Riddle Had a thoracentesis for large pleural effusion in June; 700 ml removed, non malignant. CXR in AM ISB Continue COPD medications; Montelukast Last PFT's 04/2019: FEV1 1.17 Anemia of chronic disease: Unspecified, microcytic. Hgb 11.8 on admission Pt denies any nasima red or black/tarry stools. normal egd in 2019 continue iron supplementation at discharge Cancer: s/p left mastectomy hx of L breast ca hx of lung carcinoma s/p XRT hx of radiation pneumonitis Depression, unspecified: Continue Sertraline No SI. Recent inpatient admission with OD with Ativan over the past year. pt denies SI Senile degeneration of brain: Takes Aricept; continue Fast score: Relatively independent with ADL's Dispo: Code: DNR/DNI PCP: Dr. Rodriguez VTE Prophylaxis: TEDS/SCDS Point of Contact: Han Mauro: [phone] Plan to return to [facility] [place] A total of 88 minutes was spent with greater than 50% of that time personally reviewing all current laboratory work and diagnostic imaging studies obtained in the ED. Additionally, I was able to review the patients past medication reconciliation and history with direct visualization in the patients chart. Included in the time above, a portion of that time was spent assessing the patient while discussing and collaborating with specialists, if necessary, and making medical decisions regarding orders to be placed. All of the aforementioned completed while collaborating with Dr. Martines for a full treatment plan. Please see his addendum for further details. History of Present Illness Chief Complaint: Shortness of breath Primary Care Provider: [facility] This is an 89-year-old female with a complex past medical history the presents to the ED with her son, Morgan with worsening SOB that has been occurring over the last 4-5 days. Chest x-ray in the ED shows pulmonary edema. PMH includes: left breast cancer s/p left radical mastectomy, radiation pneumonitis, concerning right upper lobe lesion for possible carcinoma status post empiric radiation, asthmaCOPD, HTN, HFpEF, Senile Degeneration of the Brain, pAF, and anemia of chronic disease. Pt with increasing inpatient hospitalizations 06/24 to 06/29/2021, 07/06-07/09 for SOB and secondary to acute HFpEF. She also had an admission recently 11/12-11/18 for acute on chronic CHF also with testing positive for COVID-19 for which she completed an inpatient course of steroids and Remdesivir. Additional inpatient stays from 10 3-10 6 status post fall and 01/12-01/24 for pneumonia. She underwent thoracentesis on right at 800 mL in 06/2021 and it was transudative and negative for malignancy. Pt has senile degeneration of the brain and is able to communicate and participate in her goals of care, but is a poor historian overall. Upon examination, patient appeared in no apparent distress. Patient will be admitted under hospitalist service for further evaluation and management. Please see A/P for further details. Allergies Allergy/AdvReac Type Severity Reaction Status Date / Time bee venom protein (honey bee) Allergy Severe ANAPHYLAXIS Verified 12/14/21 01:31 Home Medications Medication Instructions Recorded Confirmed Type aspirin 81 mg tablet,delayed 81 mg PO QAM 04/30/21 03/07/22 History release montelukast 10 mg tablet 10 mg PO HS 04/30/21 03/07/22 History tiotropium 2.5 mcg-olodaterol 2.5 1 puff inhalation QAM 04/30/21 03/07/22 History mcg/actuation mist for inhalation (Stiolto Respimat) calcium carbonate 500 mg calcium 500 mg PO BID 06/24/21 03/07/22 History (1,250 mg) chewable tablet docusate sodium 100 mg capsule 100 mg PO BID 06/24/21 03/07/22 History (Colace) donepezil 5 mg tablet 5 mg PO BID 06/24/21 03/07/22 History lorazepam 0.5 mg tablet 0.5 mg PO TID 06/24/21 03/07/22 History sertraline 100 mg tablet 200 mg PO QAM 07/06/21 03/07/22 History potassium chloride 10 mEq 10 meq PO DAILY #30 tabs 07/09/21 03/07/22 Rx tablet,extended release(part/cryst) amiodarone 200 mg tablet 200 mg PO QAM 10/02/21 03/07/22 History metoprolol tartrate 25 mg tablet 12.5 mg PO BID 10/02/21 03/07/22 History pantoprazole 40 mg tablet,delayed 40 mg PO BID 10/02/21 03/07/22 History release acetaminophen 325 mg tablet 650 mg PO Q4H PRN PAIN/FEVER 12/14/21 03/07/22 History (Tylenol) epinephrine 0.3 mg/0.3 mL 0.3 mg IM DIRECTED PRN Allergic 12/14/21 03/07/22 History injection, auto-injector (EpiPen) Reaction lidocaine 5 % topical patch 1 patch transdermal QAM 12/14/21 03/07/22 History ferrous sulfate 325 mg (65 mg 325 mg PO BID 30 days #60 tabs 12/16/21 03/07/22 Rx iron) tablet levalbuterol HCl 1.25 mg/3 mL 1.25 mg (3 mL) NEB Q4H PRN 12/16/21 03/07/22 Rx solution for nebulization shortness of breath or wheezing #36 mL albuterol sulfate 90 mcg/actuation 2 puff inhalation Q4H PRN 01/12/22 03/07/22 History aerosol inhaler Shortness Of Breath Or Wheezing losartan 25 mg tablet 25 mg PO DAILY 01/22/22 03/07/22 History spironolactone 25 mg tablet 12.5 mg PO DAILY 01/22/22 03/07/22 History amoxicillin 875 mg-potassium 1 tab PO BIDM #13 tabs 01/24/22 03/07/22 Rx clavulanate 125 mg tablet fluticasone propionate 50 2 spray CLEMENTINA Q24H #1 g 01/24/22 03/07/22 Rx mcg/actuation nasal spray,suspension furosemide 20 mg tablet 20 mg PO MoWeThSa@0900 #15 tabs 01/24/22 03/07/22 Rx furosemide 20 mg tablet 40 mg PO SuTuFr@0900 #30 tabs 01/24/22 03/07/22 Rx guaifenesin 600 mg tablet, 600 mg PO Q12 #14 tabs 01/24/22 03/07/22 Rx extended release 12 hr (Mucinex) Past Med/Surg History Medical History (HFpEF) heart failure with preserved ejection fraction Abnormal CT of the chest Acute on chronic heart failure with preserved ejection fraction Anemia of chronic disease Anxiety Anxiety Asthma USING RESCUE INHALER FREQUENTLY/DAILY Asthma-COPD overlap syndrome Cancer BREAST CANCER-LEFT MASTECTOMY Chronic obstructive pulmonary disease COPD (chronic obstructive pulmonary disease) COVID-19 Deep vein thrombosis 15 YEARS AGO S/P LEG SURGERY Degenerative disc disease Dysphagia HX ESOPHAGEAL STRETCHING Fall GERD (gastroesophageal reflux disease) History of pulmonary embolism HTN (hypertension) Hypertension Osteoarthritis PAF (paroxysmal atrial fibrillation) PAF (paroxysmal atrial fibrillation) Prolapsed bladder Pulmonary nodule, right Rectal bleeding Senile degeneration of brain T12 burst fracture Surgical History History of cataract surgery RT/LEFT History of colonoscopy History of esophagogastroduodenoscopy (EGD) History of mastectomy LEFT (NO BP/LAB DRAWS) History of tonsillectomy History of tooth extraction History of total hysterectomy with bilateral salpingo-oophorectomy (BSO) History of total knee replacement LEFT/RT Family History Other Alzheimer disease Stroke Social History Smoking Status: Never smoker Second Hand Exposure: Yes (AT WORK); Hx Alcohol Use: No Hx Substance Use: No Preferred Language: Slovak Communication Ability: Effective Judo Teacher Required: No Beliefs That Will Affect Care: None marital status: / Current Living Situation: Personal Care Facility Current Living Situation Comment: [facility] How many Children do You have: 1 Feels Safe at Home: Yes Childhood Exposure to Second-Hand Smoke: Yes Dental Care, Regularly: Yes Assistive Devices: Walker Review of Systems Review of Systems: Neuro: (-) Falls, trauma, slurred speech HEENT: (-) MILNER, dizziness, dysphagia, visual or auditory changes CV: (-) CP, palpitations, swelling Resp: (-) SOB GI: (-) appetite changes, N/V/D, bowel changes : (-) urinary changes Skin: (-) rashes Psych: (-) anxiety, depression Physical Exam Constitutional: Neuro: AAOx4, PERRLA, no aphagia, memory changes, CNII-XII grossly intact HEENT: head normocephalic, moist mucus membranes CV: S1/S2, (-) M/G/R, (-) edema, cap refill < 3 seconds Resp: Lungs CTA in all croft. On RA GI: Abdomen S/NT/ND, Ax4 bowel sounds, (-) CVA tenderness Musculoskeletal: 5/5 B/L UE strength, 5/5 B/L LE strength. No gait disturbance Skin: (-) rashes , (-) erythema. Psych: euthymic mood Results & Data Results & Data ([facility]) Vital Signs (Past 12 Hours) Vital Signs Temp Pulse Resp BP Pulse Ox O2 Del Method O2 Flow Rate 03/07/22 10:03 75 25 H 177/88 H 97 Nasal Cannula 5 03/07/22 09:45 84 L Room Air 03/07/22 09:42 36 C L 74 28 H 166/75 H 91 Room Air Laboratory Results Short CBC 03/07/22 Range/Units 10:22 WBC 6.23 (4.8-10.8) K/ul Hgb 11.8 L (12.0-16.0) g/dl Hct 37.4 (34.1-44.9) % Plt Count 268 (130-400) K/uL BMP 03/07/22 10:22 Sodium 141 Potassium 3.3 L Chloride 101 Carbon Dioxide 34 H BUN 19 Creatinine 0.78 Glucose 81 Calcium 9.1 Liver Function 03/07/22 Range/Units 10:22 Total Bilirubin 0.6 (0.2-1.0) mg/dl Direct Bilirubin 0.1 (0-0.2) mg/dl AST 23 (13-39) U/L ALT 12 (7-52) U/L Alkaline Phosphatase 66 (34-104) U/L Albumin 3.7 (3.4-5.0) gm/dl Diagnostic Findings Chest X-Ray 03/07/22 10:07 XR chest 1V portable CLINICAL HISTORY: Shortness of breath. COMPARISON STUDY: Chest radiograph January 24, [address] January 13, 2022. FINDINGS: Interstitial pulmonary edema has developed. Moderate left and small right pleural effusions are noted with bibasilar opacities, greater on the left. Right apical opacity is unchanged and may reflect post treatment change. Degenerative changes of both glenohumeral joints are incidentally noted. No pneumothorax. IMPRESSION: 1. Interval development of pulmonary edema. 2. Moderate left and small right pleural effusions which likely reflect atelectasis. Consolidation could appear similar. Radiographic follow-up is recommended. ACT 112: Negative or not required by law. Electronically signed by: Kemal Elizabeth M.D. 03/07/2022 10:36 AM Code Status & VTE Plan Code Status DNR/DNI in the event of Cardiac or Respiratory arrest Supervising Physician Co-Signing Physician Notes Patient seen and examined at bedside independently. Agree with above documentation by TEVIN Barrera. Patient presents with increasing shortness of breath and cough for several days On examination, bilateral crackles present. Chest x-ray shows pulmonary edema. History and examination consistent with acute on chronic diastolic heart failure, COPD exacerbation. Started on IV Lasix 40 mg twice daily, duo nebs every 6 hours, IV methylprednisolone. PT OT evaluation. (1) COPD (chronic obstructive pulmonary disease) COPD type: COPD with acute exacerbation Qualified Code(s): J44.1 - Chronic obstructive pulmonary disease with (acute) exacerbation
[2022-03-07] MEDS ORDERED: POLYETHYLENE (MIRALAX) 17 GM PACK PO PRN (13:17)
[2022-03-07] MEDS ORDERED: ACETAMINOPHEN 325 MG TAB PO PRN ×2 (13:17→16:23)
[2022-03-07] MEDS ORDERED: ONDANSETRON INJ 2 MG/ML 2 ML VIAL IV PRN (13:17)
[2022-03-07] MEDS ORDERED: POTASSIUM CHLORIDE CRTAB 20 MEQ TABCR PO STA (13:17)
[2022-03-07] MEDS ORDERED: MAGNESIUM HYDROXIDE SUSP 30 ML UDC PO PRN (13:17)
[2022-03-07] MEDS ORDERED: ALUMINUM/MAGNESIUM SUSP 30 ML UDC PO PRN (13:17)
[2022-03-07] MEDS: ALBUT/IPRATROP 3MG/0.5MG NEB 3 ML VIAL NEB SCH ×2 (14:51→19:27)
--- NOTE | 2022-03-07 15:23 | Electrocardiogram Report ---
Test Reason : Blood Pressure : / mmHG Vent. Rate : 078 BPM Atrial Rate : 078 BPM P-R Int : 150 ms QRS Dur : 126 ms QT Int : 404 ms P-R-T Axes : 064 097 073 degrees QTc Int : 460 ms Poor data quality, interpretation may be adversely affected Normal sinus rhythm Right bundle branch block Abnormal ECG When compared with ECG of 13-JAN-2022 05:21, Right bundle branch block is now Present Peaked T waves no longer present Confirmed by Nathanael Wright ([id number]) on 03/07/2022 3:23:33 PM Referred By: REFERRED SELF Confirmed By:Nathanael Wright
[2022-03-07] MEDS ORDERED: ALBUTEROL HFA 8 GM INHALER INH PRN (16:23)
[2022-03-07] MEDS ORDERED: LEVALBUTEROL HCL 1.25 MG/3 ML NEB NEB PRN (16:23)
[2022-03-07] MEDS ORDERED: EPINEPHrine INJ 1 MG/ML AMP IM PRN (16:28)
[2022-03-07 16:45] LABS: Appearance Urine Clear (Clear); Bilirubin Urine Negative (Negative); Blood Urine Negative (Negative); Color Urine Yellow; Glucose Urine UA Negative (Negative); Ketones Urine Negative (Negative); Leukocyte Esterase Urine Negative (Negative); Nitrite Urine Negative (Negative); Protein Urine Negative (Negative); Specific Gravity Urine 1.006 (1.000-1.030); Urobilinogen Urine Negative (Negative); pH Urine 7.5 (4.5-7.5)
[2022-03-07] MEDS: FLUTICASONE PROPIONATE NA SPR 16 GM BTL NAE SCH (17:46)
--- NOTE | 2022-03-07 18:08 | Emergency Department Note ---
History of Present Illness General Chief Complaint: Shortness of Breath/Dyspnea Stated Complaint: SOB Time Seen by Provider: 03/07/22 10:06 History of Present Illness Provider Complaint: shortness of breath and cough Onset (ago): day(s) (4) Consistency/Duration: + progressively worsening Maximum Pain Intensity: 4 Relieved By: + nothing Exacerbated By: + lying flat, + exertion, + movement and + coughing Known history of: asthma and congestive heart failure Associated symptoms: + wheezing and + chest congestion; no chest pain, no polyuria, no hemoptysis or no abdominal pain Related Data Home oxygen amount: none Home Medications Medication Instructions Recorded Confirmed Type aspirin 81 mg tablet,delayed 81 mg PO QAM 04/30/21 03/07/22 History release montelukast 10 mg tablet 10 mg PO HS 04/30/21 03/07/22 History tiotropium 2.5 mcg-olodaterol 2.5 1 puff inhalation QAM 04/30/21 03/07/22 History mcg/actuation mist for inhalation (Stiolto Respimat) calcium carbonate 500 mg calcium 500 mg PO BID 06/24/21 03/07/22 History (1,250 mg) chewable tablet docusate sodium 100 mg capsule 100 mg PO BID 06/24/21 03/07/22 History (Colace) donepezil 5 mg tablet 5 mg PO BID 06/24/21 03/07/22 History lorazepam 0.5 mg tablet 0.5 mg PO TID 06/24/21 03/07/22 History sertraline 100 mg tablet 200 mg PO QAM 07/06/21 03/07/22 History potassium chloride 10 mEq 10 meq PO DAILY #30 tabs 07/09/21 03/07/22 Rx tablet,extended release(part/cryst) amiodarone 200 mg tablet 200 mg PO QAM 10/02/21 03/07/22 History metoprolol tartrate 25 mg tablet 12.5 mg PO BID 10/02/21 03/07/22 History pantoprazole 40 mg tablet,delayed 40 mg PO BID 10/02/21 03/07/22 History release acetaminophen 325 mg tablet 650 mg PO Q4H PRN PAIN/FEVER 12/14/21 03/07/22 History (Tylenol) epinephrine 0.3 mg/0.3 mL 0.3 mg IM DIRECTED PRN Allergic 12/14/21 03/07/22 History injection, auto-injector (EpiPen) Reaction lidocaine 5 % topical patch 1 patch transdermal QAM 12/14/21 03/07/22 History ferrous sulfate 325 mg (65 mg 325 mg PO BID 30 days #60 tabs 12/16/21 03/07/22 Rx iron) tablet levalbuterol HCl 1.25 mg/3 mL 1.25 mg (3 mL) NEB Q4H PRN 12/16/21 03/07/22 Rx solution for nebulization shortness of breath or wheezing #36 mL albuterol sulfate 90 mcg/actuation 2 puff inhalation Q4H PRN 01/12/22 03/07/22 History aerosol inhaler Shortness Of Breath Or Wheezing losartan 25 mg tablet 25 mg PO DAILY 01/22/22 03/07/22 History spironolactone 25 mg tablet 12.5 mg PO DAILY 01/22/22 03/07/22 History amoxicillin 875 mg-potassium 1 tab PO BIDM #13 tabs 01/24/22 03/07/22 Rx clavulanate 125 mg tablet fluticasone propionate 50 2 spray CLEMENTINA Q24H #1 g 01/24/22 03/07/22 Rx mcg/actuation nasal spray,suspension furosemide 20 mg tablet 20 mg PO MoWeThSa@0900 #15 tabs 01/24/22 03/07/22 Rx furosemide 20 mg tablet 40 mg PO SuTuFr@0900 #30 tabs 01/24/22 03/07/22 Rx guaifenesin 600 mg tablet, 600 mg PO Q12 #14 tabs 01/24/22 03/07/22 Rx extended release 12 hr (Mucinex) Allergies Allergy/AdvReac Type Severity Reaction Status Date / Time bee venom protein (honey bee) Allergy Severe ANAPHYLAXIS Verified 12/14/21 01:31 Past Med/Surg History Medical History (HFpEF) heart failure with preserved ejection fraction Abnormal CT of the chest Acute on chronic heart failure with preserved ejection fraction Anemia of chronic disease Anxiety Anxiety Asthma USING RESCUE INHALER FREQUENTLY/DAILY Asthma-COPD overlap syndrome Cancer BREAST CANCER-LEFT MASTECTOMY Chronic obstructive pulmonary disease COPD (chronic obstructive pulmonary disease) COVID-19 Deep vein thrombosis 15 YEARS AGO S/P LEG SURGERY Degenerative disc disease Dysphagia HX ESOPHAGEAL STRETCHING Fall GERD (gastroesophageal reflux disease) History of pulmonary embolism HTN (hypertension) Hypertension Osteoarthritis PAF (paroxysmal atrial fibrillation) PAF (paroxysmal atrial fibrillation) Prolapsed bladder Pulmonary nodule, right Rectal bleeding Senile degeneration of brain T12 burst fracture Surgical History History of cataract surgery RT/LEFT History of colonoscopy History of esophagogastroduodenoscopy (EGD) History of mastectomy LEFT (NO BP/LAB DRAWS) History of tonsillectomy History of tooth extraction History of total hysterectomy with bilateral salpingo-oophorectomy (BSO) History of total knee replacement LEFT/RT Family History Other Alzheimer disease Stroke Social History Smoking Status: Never smoker Second Hand Exposure: Yes (AT WORK); Hx Alcohol Use: No Hx Substance Use: No Preferred Language: Ghanaian Communication Ability: Effective 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 Beliefs That Will Affect Care: None marital status: / Current Living Situation: Personal Care Facility Current Living Situation Comment: [facility] How many Children do You have: 1 Feels Safe at Home: Yes Childhood Exposure to Second-Hand Smoke: Yes Dental Care, Regularly: Yes Assistive Devices: Walker Physical Exam Vital Signs: Vital Signs - 24 hr 03/07/22 09:42 03/07/22 09:45 03/07/22 10:03 Temperature 36 C L Temperature Source Temporal Artery Sc an Pulse Rate 74 75 Pulse Rate from Sp O2 Sensor Respiratory Rate 28 H 25 H Blood Pressure 166/75 H 177/88 H Blood Pressure Wen n 105 117 Pulse Oximetry 91 84 L 97 Oxygen Delivery Me thod Room Air Room Air Nasal Cannula Oxygen Flow Rate 5 Sepsis Recent Feve r Within 48 Hours No Sepsis New/Unexpla ined Change in Men mo Status No Sepsis Action Take n by Nursing No Action Required Oxygen Flow Rate - Titration 5 Pulse Oximetry Pos t Tiitration 97 03/07/22 10:30 03/07/22 11:00 03/07/22 11:30 Temperature Temperature Source Pulse Rate 73 73 74 Pulse Rate from Sp O2 Sensor 74 72 74 Respiratory Rate 32 H 29 H 23 Blood Pressure Blood Pressure Wen n Pulse Oximetry 97 100 100 Oxygen Delivery Me thod Oxygen Flow Rate Sepsis Recent Feve r Within 48 Hours Sepsis New/Unexpla ined Change in Men mo Status Sepsis Action Take n by Nursing Oxygen Flow Rate - Titration Pulse Oximetry Pos t Tiitration 03/07/22 12:00 03/07/22 12:30 03/07/22 13:00 Temperature Temperature Source Pulse Rate 72 79 73 Pulse Rate from Sp O2 Sensor 73 78 73 Respiratory Rate 18 26 H 17 Blood Pressure Blood Pressure Wen n Pulse Oximetry 100 100 100 Oxygen Delivery Me thod Oxygen Flow Rate Sepsis Recent Feve r Within 48 Hours Sepsis New/Unexpla ined Change in Men mo Status Sepsis Action Take n by Nursing Oxygen Flow Rate - Titration Pulse Oximetry Pos t Tiitration Physical Exam: Physical Exam GENERAL: She is oriented to person, place, and time. She appears well-developed and well-nourished. She does not appear distressed. HENT: Exam performed. -Head: Normocephalic and atraumatic. -Right Ear: External ear normal. No mastoid tenderness. -Left Ear: External ear normal. No mastoid tenderness. -Mouth/Throat: The oropharynx is clear and moist. No trismus in the jaw. No dental abscesses or uvula swelling. No oropharyngeal exudate or tonsillar abscesses. EYES: Conjunctivae and EOM are normal. Pupils are equal, round, and reactive to light. Right eye exhibits no discharge. Left eye exhibits no discharge. No scleral icterus. NECK: Normal range of motion. Neck supple. No JVD present. No spinous process tenderness present. No carotid bruit present. No rigidity. No tracheal deviation and normal range of motion present. No Brudzinski's sign and no Kernig's sign noted. CV: Normal rate, regular rhythm, normal heart sounds and intact distal pulses. There is no peripheral edema. Palpable radial pulses bue. PULM/CHEST: Inspiratory rales and wheezes bilaterally. ABD: The abdomen is soft. Bowel sounds are normal. She has no distension. No mass is present. There is no tenderness. There is no rebound, no guarding, no Ortiz's sign and no tenderness at McBurney's point. Rovsig negative MUSC/SKEL: Normal range of motion. There is no peripheral edema, tenderness or deformity. LYMPH: No cervical adenopathy. NEURO: She is alert and oriented to person, place, and time. She has normal strength. No cranial nerve deficit or sensory deficit. Coordination and gait normal. GCS eye subscore is 4. GCS verbal subscore is 5. GCS motor subscore is 6. Cerebellar tests wnl. SKIN: Skin is warm and dry. She is not diaphoretic. PSYCH: She has a normal mood and affect. Behavior is normal. Judgment and thought content normal. Course Course 1006: The patient was evaluated in room C5. A complete history and physical exam was performed Cardiac monitoring: An order was placed for continuous cardiac monitoring. The monitor shows a rate of 70 with sinus rhythm Patient found to be hypoxic on room air supplemental oxygen was applied via nasal cannula which improved her oxygen saturation. Patient be treated with DuoNeb and prednisone at this time given her wheezing and history of asthma. 1250: Vital signs stable on supplemental oxygen via nasal cannula. Labs show an elevated proBNP and chest x-ray shows pulmonary edema. VBG shows venous pH of 7.35 with venous PCO2 of 66. Potassium 3.3. Troponin mildly elevated 20.9. Patient not reporting chest pain is thought to be elevated due to patient's congestive heart failure exacerbation. COVID-negative. Patient will be given Lasix 40 mg IV push and admitted to the [facility] hospitalist team. Administered Medications Albuterol (Albut/Ipratrop 3mg/0.5mg Neb 3 Ml Vial) 3 ml NEB QIDR MARILIA; Protocol Stop: 04/06/22 14:59 Last Admin: 03/07/22 14:51 Dose: 3 ml Documented By: KATHY Fluticasone Propionate (Fluticasone Propionate Na Spr 16 Gm Btl) 2 sprays CLEMENTINA DAILY [facility] Stop: 04/06/22 16:29 Last Admin: 03/07/22 17:46 Dose: 2 sprays Documented By: KS Discontinued Medications Albuterol (Albut/Ipratrop 3mg/0.5mg Neb 3 Ml Vial) 3 ml NEB NOW STA; Protocol Stop: 03/07/22 10:14 Last Admin: 03/07/22 10:22 Dose: 3 ml Documented By: CÉSAR Furosemide (Furosemide 40 Mg/4 Ml Vial) 40 mg IV ONE ONE Stop: 03/07/22 12:37 Last Admin: 03/07/22 13:44 Dose: 40 mg Documented By: LENA Potassium Chloride (Potassium Chloride Crtab 20 Meq Tabcr) 40 meq PO NOW STA Stop: 03/07/22 13:18 Last Admin: 03/07/22 13:43 Dose: 40 meq Documented By: LENA Prednisone (Prednisone 50 Mg Tab) 50 mg PO ONCE ONE Stop: 03/07/22 10:14 Last Admin: 03/07/22 10:21 Dose: 50 mg Documented By: CÉSAR Medical Decision Making Laboratory Data Attestation: I reviewed the patient's lab results. Result diagrams: 03/07/22 10:22 03/07/22 10:22 Lab Results 03/07/22 03/07/22 03/07/22 Range/Units 10:05 10:22 10:22 WBC 6.23 (4.8-10.8) K/ul RBC 4.13 (3.93-5.22) M/uL Hgb 11.8 L (12.0-16.0) g/dl Hct 37.4 (34.1-44.9) % MCV 90.6 (80.0-100.0) fL MCH 28.6 (25.0-34.0) pg MCHC 31.6 L (32.0-36.0) g/dL RDW Std Deviation 63.9 H (36.4-46.3) fL RDW Coeff of [place] 19.3 H (11.5-14.5) % Plt Count 268 (130-400) K/uL MPV 11.0 (9.4-12.3) fL Immature Gran % (Auto) 0.5 % Neut % (Auto) 83.4 % Lymph % (Auto) 7.5 % Ulster % (Auto) 7.1 % Eos % (Auto) 0.5 % Baso % (Auto) 1.0 % Neut # (Auto) 5.20 (1.4-6.5) K/uL Lymph # (Auto) 0.47 L (1.2-3.4) K/uL Ulster # (Auto) 0.44 (0.24-0.82) K/uL Eos # (Auto) 0.03 (0-0.50) K/uL Baso # (Auto) 0.06 (0-0.2) K/uL Immature Gran # (Auto) 0.03 H (0.00-0.02) K/uL PT 11.2 (9.0-12.0) Seconds INR 1.1 (0.9-1.1) APTT 26.1 (21.0-31.0) Seconds PTT Ratio 0.9 VBG pH (7.36-7.41) VBG pCO2 (38-50) mmHg VBG pO2 mmHg VBG HCO3 mmol/L VBG O2 Saturation % VBG Base Excess mEq/L Sodium (136-145) mmol/L Potassium (3.5-5.1) mmol/L Chloride (98-107) mmol/L Carbon Dioxide (21-32) mmol/L Anion Gap (3-11) BUN (6-23) mg/dl Creatinine (0.6-1.2) mg/dl Est Cr Clr Drug Dosing Est GFR ( Amer) ml/min Est GFR (Non-Af Amer) ml/min BUN/Creatinine Ratio (10-20) Glucose (70-99(Fasting)) mg/dl Calcium (8.5-10.1) mg/dl Magnesium (1.7-2.4) mg/dl Total Bilirubin (0.2-1.0) mg/dl Direct Bilirubin (0-0.2) mg/dl AST (13-39) U/L ALT (7-52) U/L Alkaline Phosphatase (34-104) U/L Troponin I High Sens (0-14) pg/ml B-Natriuretic Peptide (0-100) pg/ml Total Protein (6.0-8.3) gm/dl Albumin (3.4-5.0) gm/dl Lipase (11-82) U/L SARS-CoV-2 (PCR) NEGATIVE (Negative) Influenza Type A (PCR) Negative (Neg) Influenza Type B (PCR) Negative (Neg) RSV (RT-PCR) Negative (Neg) 03/07/22 03/07/22 03/07/22 Range/Units 10:22 10:22 10:22 WBC (4.8-10.8) K/ul RBC (3.93-5.22) M/uL Hgb (12.0-16.0) g/dl Hct (34.1-44.9) % MCV (80.0-100.0) fL MCH (25.0-34.0) pg MCHC (32.0-36.0) g/dL RDW Std Deviation (36.4-46.3) fL RDW Coeff of [place] (11.5-14.5) % Plt Count (130-400) K/uL MPV (9.4-12.3) fL Immature Gran % (Auto) % Neut % (Auto) % Lymph % (Auto) % Ulster % (Auto) % Eos % (Auto) % Baso % (Auto) % Neut # (Auto) (1.4-6.5) K/uL Lymph # (Auto) (1.2-3.4) K/uL Ulster # (Auto) (0.24-0.82) K/uL Eos # (Auto) (0-0.50) K/uL Baso # (Auto) (0-0.2) K/uL Immature Gran # (Auto) (0.00-0.02) K/uL PT (9.0-12.0) Seconds INR (0.9-1.1) APTT (21.0-31.0) Seconds PTT Ratio VBG pH 7.35 L (7.36-7.41) VBG pCO2 66 H (38-50) mmHg VBG pO2 21 mmHg VBG HCO3 36 mmol/L VBG O2 Saturation < 60.0 % VBG Base Excess 8.6 mEq/L Sodium 141 (136-145) mmol/L Potassium 3.3 L (3.5-5.1) mmol/L Chloride 101 (98-107) mmol/L Carbon Dioxide 34 H (21-32) mmol/L Anion Gap 6 (3-11) BUN 19 (6-23) mg/dl Creatinine 0.78 (0.6-1.2) mg/dl Est Cr Clr Drug Dosing Not Reportable Est GFR ( Amer) 78.1 ml/min Est GFR (Non-Af Amer) 67.4 ml/min BUN/Creatinine Ratio 24.4 H (10-20) Glucose 81 (70-99(Fasting)) mg/dl Calcium 9.1 (8.5-10.1) mg/dl Magnesium 1.9 (1.7-2.4) mg/dl Total Bilirubin 0.6 (0.2-1.0) mg/dl Direct Bilirubin 0.1 (0-0.2) mg/dl AST 23 (13-39) U/L ALT 12 (7-52) U/L Alkaline Phosphatase 66 (34-104) U/L Troponin I High Sens 20.9 H Cancelled (0-14) pg/ml B-Natriuretic Peptide (0-100) pg/ml Total Protein 6.9 (6.0-8.3) gm/dl Albumin 3.7 (3.4-5.0) gm/dl Lipase 44 Cancelled (11-82) U/L SARS-CoV-2 (PCR) (Negative) Influenza Type A (PCR) (Neg) Influenza Type B (PCR) (Neg) RSV (RT-PCR) (Neg) 03/07/22 Range/Units 10:22 WBC (4.8-10.8) K/ul RBC (3.93-5.22) M/uL Hgb (12.0-16.0) g/dl Hct (34.1-44.9) % MCV (80.0-100.0) fL MCH (25.0-34.0) pg MCHC (32.0-36.0) g/dL RDW Std Deviation (36.4-46.3) fL RDW Coeff of [place] (11.5-14.5) % Plt Count (130-400) K/uL MPV (9.4-12.3) fL Immature Gran % (Auto) % Neut % (Auto) % Lymph % (Auto) % [place] % (Auto) % Eos % (Auto) % Baso % (Auto) % Neut # (Auto) (1.4-6.5) K/uL Lymph # (Auto) (1.2-3.4) K/uL [place] # (Auto) (0.24-0.82) K/uL Eos # (Auto) (0-0.50) K/uL Baso # (Auto) (0-0.2) K/uL Immature Gran # (Auto) (0.00-0.02) K/uL PT (9.0-12.0) Seconds INR (0.9-1.1) APTT (21.0-31.0) Seconds PTT Ratio VBG pH (7.36-7.41) VBG pCO2 (38-50) mmHg VBG pO2 mmHg VBG HCO3 mmol/L VBG O2 Saturation % VBG Base Excess mEq/L Sodium (136-145) mmol/L Potassium (3.5-5.1) mmol/L Chloride (98-107) mmol/L Carbon Dioxide (21-32) mmol/L Anion Gap (3-11) BUN (6-23) mg/dl Creatinine (0.6-1.2) mg/dl Est Cr Clr Drug Dosing Est GFR ( Amer) ml/min Est GFR (Non-Af Amer) ml/min BUN/Creatinine Ratio (10-20) Glucose (70-99(Fasting)) mg/dl Calcium (8.5-10.1) mg/dl Magnesium (1.7-2.4) mg/dl Total Bilirubin (0.2-1.0) mg/dl Direct Bilirubin (0-0.2) mg/dl AST (13-39) U/L ALT (7-52) U/L Alkaline Phosphatase (34-104) U/L Troponin I High Sens (0-14) pg/ml B-Natriuretic Peptide 1058 H (0-100) pg/ml Total Protein (6.0-8.3) gm/dl Albumin (3.4-5.0) gm/dl Lipase (11-82) U/L SARS-CoV-2 (PCR) (Negative) Influenza Type A (PCR) (Neg) Influenza Type B (PCR) (Neg) RSV (RT-PCR) (Neg) Imaging Data Attestation: I personally reviewed and interpreted this imaging study as follows: Radiologist's Impression: Chest X-Ray 03/07/22 10:07 XR chest 1V portable CLINICAL HISTORY: Shortness of breath. COMPARISON STUDY: Chest radiograph January 24, [address] January 13, 2022. FINDINGS: Interstitial pulmonary edema has developed. Moderate left and small right pleural effusions are noted with bibasilar opacities, greater on the left. Right apical opacity is unchanged and may reflect post treatment change. Degenerative changes of both glenohumeral joints are incidentally noted. No pneumothorax. IMPRESSION: 1. Interval development of pulmonary edema. 2. Moderate left and small right pleural effusions which likely reflect atelectasis. Consolidation could appear similar. Radiographic follow-up is recommended. ACT 112: Negative or not required by law. Electronically signed by: Kemal Elizabeth M.D. 03/07/2022 10:36 AM ECG Data Attestation: I personally reviewed and interpreted this ECG as follows: Interpretation: Sinus rhythm with a rate of 78. WI 150 QRS [address] elevation or ST depression. [facility] Narrative 1006: The patient was evaluated in room C5. A complete history and physical exam was performed Cardiac monitoring: An order was placed for continuous cardiac monitoring. The monitor shows a rate of 70 with sinus rhythm Patient found to be hypoxic on room air supplemental oxygen was applied via nasal cannula which improved her oxygen saturation. Patient be treated with DuoNeb and prednisone at this time given her wheezing and history of asthma. 1250: Vital signs stable on supplemental oxygen via nasal cannula. Labs show an elevated proBNP and chest x-ray shows pulmonary edema. VBG shows venous pH of 7.35 with venous PCO2 of 66. Potassium 3.3. Troponin mildly elevated 20.9. Patient not reporting chest pain is thought to be elevated due to patient's congestive heart failure exacerbation. COVID-negative. Patient will be given L asix 40 mg IV push and admitted to the [facility] Hospitalist team. Impression & Plan Hypoxia, Acute exacerbation of CHF (congestive heart failure) Critical Care Time Critical Care Time: Yes Total Critical Care Time: 46 I have personally spent greater than 46 minutes of critical care time in the direct management of this patient. This includes bedside care, interpretation of diagnostic studies, and testing, discussion with consultants, patient, and family members, and other required patient management activities. This 46 minutes is in excess of all separately billable procedures. Discharge Plan Visit Data Chief Complaint: Shortness of Breath/Dyspnea Stated Complaint: SOB ED Provider: Chapin Lopez Discharge Problem: Hypoxia, Acute exacerbation of CHF (congestive heart failure) Patient Disposition: Admitted As Inpatient Discharge Instructions Interventions: ED Discharge Assessment Last Done: 03/07/22 15:52
[2022-03-07] MEDS: CALCIUM CARBONATE 1250MG TAB PO SCH (20:31)
[2022-03-07] MEDS: DOCUSATE SODIUM 100 MG CAP PO SCH (20:31)
[2022-03-07] MEDS: DONEPEZIL HCL 5 MG TAB PO SCH (20:32)
[2022-03-07] MEDS: FERROUS SULFATE 325 MG TAB PO SCH (20:33)
[2022-03-07] MEDS: METOPROLOL TARTRATE 25 MG TAB PO SCH (20:34)
[2022-03-07] MEDS: guaiFENesin 600 MG TABCR PO SCH (20:34)
[2022-03-07] MEDS: PANTOprazole 40 MG TAB PO SCH (20:35)
[2022-03-07] MEDS: MONTELUKAST SODIUM 10 MG TABLET PO SCH (20:35)
[2022-03-07] MEDS: FUROSEMIDE 40 MG/4 ML VIAL IV SCH (20:44)
[2022-03-07] MEDS: LORazepam 0.5 MG TAB PO SCH (20:44)
[2022-03-08] MEDS: ALBUT/IPRATROP 3MG/0.5MG NEB 3 ML VIAL NEB SCH ×4 (06:54→19:40)
[2022-03-08] MEDS: AMIODARONE 200 MG TAB PO SCH (08:22)
[2022-03-08] MEDS: LOSARTAN POTASSIUM 25 MG TAB PO SCH (08:22)
[2022-03-08] MEDS: ASPIRIN 81 MG ECTAB PO SCH (08:22)
[2022-03-08] MEDS: SERTRALINE HCL 100 MG TABLET PO SCH (08:22)
[2022-03-08] MEDS: POTASSIUM CHLORIDE 10 MEQ TABCR PO SCH (08:22)
[2022-03-08] MEDS: guaiFENesin 600 MG TABCR PO SCH ×2 (08:23→21:31)
[2022-03-08] MEDS: FLUTICASONE PROPIONATE NA SPR 16 GM BTL NAE SCH (08:23)
[2022-03-08] MEDS: FERROUS SULFATE 325 MG TAB PO SCH ×2 (08:23→21:31)
[2022-03-08] MEDS: DONEPEZIL HCL 5 MG TAB PO SCH ×2 (08:23→21:31)
[2022-03-08] MEDS: METOPROLOL TARTRATE 25 MG TAB PO SCH ×2 (08:23→21:31)
[2022-03-08] MEDS: PANTOprazole 40 MG TAB PO SCH ×2 (08:23→21:31)
[2022-03-08] MEDS: UMECLIDINIUM/VILANTEROL 62.5/25MCG 7 PUFFS/INHALER INH SCH (08:23)
[2022-03-08] MEDS: DOCUSATE SODIUM 100 MG CAP PO SCH ×2 (08:23→21:32)
[2022-03-08] MEDS: CALCIUM CARBONATE 1250MG TAB PO SCH ×2 (08:24→21:31)
[2022-03-08] MEDS: LIDOCAINE 5% 1 PATCH TD SCH (08:24)
[2022-03-08 08:30] LABS: Hematocrit (blood only) 35.1 % (34.1-44.9); Hemoglobin 11.2 g/dl (12.0-16.0); Mean Corpuscular Hemoglobin 28.6 pg (25.0-34.0); Mean Corpuscular Hgb Conc 31.9 g/dL (32.0-36.0); Mean Corpuscular Volume 89.8 fL (80.0-100.0); Mean Platelet Volume 10.5 fL (9.4-12.3); Platelet Count 235 K/uL (130-400); RDW Coefficient of Variation 18.7 % (11.5-14.5); RDW Standard Deviation 61.2 fL (36.4-46.3); Red Blood Count 3.91 M/uL (3.93-5.22); White Blood Count 6.08 K/ul (4.8-10.8)
[2022-03-08] MEDS: FUROSEMIDE 40 MG/4 ML VIAL IV SCH (08:53)
[2022-03-08] MEDS: LORazepam 0.5 MG TAB PO SCH ×3 (08:53→21:40)
[2022-03-08 08:55] LABS: BUN Creatinine Ratio 20.5 (10-20); Creatinine Clr Calc Pharmacy 35.7 ml/min; Est GFR (African American) 78.1 ml/min; Est GFR (Non-African American) 67.4 ml/min; Potassium 3.4 mmol/L (3.5-5.1)
[2022-03-08] MEDS ORDERED: FUROSEMIDE 40 MG TAB PO SCH (09:00)
[2022-03-08] MEDS ORDERED: methylPREDNISolone 40 MG in SYRINGE 0 ML IV SCH (09:00)
[2022-03-08] MEDS ORDERED: NON-FORMULARY MEDICATION (Tiotropium-Olodaterol [Stiolto Respimat] 2.5-2.5 mcg/actuation M INH SCH (09:00)
[2022-03-08] MEDS ORDERED: Nursing to Pharmacy Communication SCH (09:00)
[2022-03-08] MEDS ORDERED: SPIRONOLACTONE 12.5 MG TAB PO SCH (09:00)
[2022-03-08] MEDS ORDERED: ALBUTEROL HFA 8 GM INHALER INH PRN (09:30)
--- NOTE | 2022-03-08 13:41 | Hospitalist Progress Note ---
Date of Service March 08, 2022 Assessment & Plan (1) Acute on chronic diastolic (congestive) heart failure: (2) PAF (paroxysmal atrial fibrillation): (3) Hypertension: (4) Anemia of chronic disease: (5) Cancer: (6) Depression, unspecified: (7) Senile degeneration of brain: (8) COPD with acute exacerbation: Plan Acute hypoxic respiratory failure Multifactorial; acute on chronic diastolic heart failure, COPD exacerbation. Presented with cough and shortness of breath. Was hypoxic; placed on 5 L of oxygen on admission Takes Metoprolol, Aldactone, Furosemide, PO KCl Recent echocardiogram 01/12/22; EF 65 to 70%, left atrium severely dilated, mild MS, mild TR, moderate MR, severe pulmonary hypertension Plan; Chest x-ray today shows improvement in the pulmonary edema; will continue Lasix 40 mg twice daily. Strict input and output Daily weights Continue duo nebs every 6 hours. Currently on IV methylprednisolone; will switch to p.o. from tomorrow. PT OT evaluation Cardiology consulted; appreciate recs. Patient was placed on 40 mg of Lasix and 20 mg on alternate days last admission. monitor on tele. Paroxysmal Atrial Fibrillation: HTN: rate/rhythm controlled on amiodarone and metoprolol 12.5 PO BID no oral anticoagulation in setting of chronic anemia Continue Losartan Anemia of chronic disease: Unspecified, microcytic. Hemoglobin around 11; stable. Pt denies any nasima red or black/tarry stools. normal egd in 2019 continue iron supplementation at discharge Cancer: s/p left mastectomy hx of L breast ca hx of lung carcinoma s/p XRT hx of radiation pneumonitis Depression, unspecified: Continue Sertraline No SI. Recent inpatient admission with OD with Ativan over the past year. pt denies SI Senile degeneration of brain: Takes Aricept; continue Fast score: Relatively independent with ADL's Cachexia with BMI = 16 Dietitian consulted Dispo: Code: DNR/DNI PCP: Dr. Rodriguez VTE Prophylaxis: Heparin Point of Contact: Han Mauro: [phone] Admission and Anticipated Discharge Date Admission Date: March 07, 2022 Subjective Patient seen and examined at bedside. She reports that her shortness of breath and cough has improved. Her oxygen requirement has down trended. Review of Systems Review of Systems: All systems reviewed & are unremarkable except as noted in Subjective Physical Exam Physical Exam: Constitutional: WD/WN, vitals as above, NAD, sitting up in bed, pleasant, conversing easily Respiratory: Bilateral basal crackles; improved from yesterday. No wheeze. Cardiovascular: RRR, no murmur, no edema Vessels: no JVD or carotid bruit Chest: normal inspection of chest Abdomen: normal bowel sounds, soft, nontender, no hepatosplenomegaly Musculoskeletal: no cyanosis or clubbing, extremities motor strength 5/5 Skin: no rashes, warm and dry normal turgor Neurologic: PERRL, EOMI, accommodation nl, no face palsy, no dysarthria CN's II- XI intact bilaterally and moves all extremities Psychiatric: A+Ox3, euthymic affect Lymphatic: no cervical or axillary lymphadenopathy : deferred Results & Data Results & Data ([facility]) Vital Signs (Past 12 Hours) Vital Signs Temp Pulse Pulse Resp BP Pulse Ox O2 Del Method 03/08/22 12:05 36.6 C 75 16 151/68 H 95 Room Air 03/08/22 08:30 Nasal Cannula 03/08/22 10:32 75 16 98 Nasal Cannula 03/08/22 08:14 36.8 C 69 20 164/73 H 100 Nasal Cannula 03/08/22 07:27 64 03/08/22 06:55 71 17 97 Nasal Cannula 03/08/22 04:41 70 03/08/22 03:58 36.4 C L 66 18 130/69 100 Nasal Cannula O2 Flow Rate 03/08/22 12:05 03/08/22 08:30 1 03/08/22 10:32 03/08/22 08:14 1 03/08/22 07:27 03/08/22 06:55 2 03/08/22 04:41 03/08/22 03:58 2 Laboratory Results Laboratory Results WBC 6.08 K/ul (4.8-10.8) 03/08/22 08:05 RBC 3.91 M/uL (3.93-5.22) L 03/08/22 08:05 Hgb 11.2 g/dl (12.0-16.0) L 03/08/22 08:05 Hct 35.1 % (34.1-44.9) 03/08/22 08:05 MCV 89.8 fL (80.0-100.0) 03/08/22 08:05 MCH 28.6 pg (25.0-34.0) 03/08/22 08:05 MCHC 31.9 g/dL (32.0-36.0) L 03/08/22 08:05 RDW Std Deviation 61.2 fL (36.4-46.3) H 03/08/22 08:05 RDW Coeff of [place] 18.7 % (11.5-14.5) H 03/08/22 08:05 Plt Count 235 K/uL (130-400) 03/08/22 08:05 MPV 10.5 fL (9.4-12.3) 03/08/22 08:05 Immature Gran % (Auto) 0.5 % 03/07/22 10:22 Neut % (Auto) 83.4 % 03/07/22 10:22 Lymph % (Auto) 7.5 % 03/07/22 10:22 Carlton % (Auto) 7.1 % 03/07/22 10:22 Eos % (Auto) 0.5 % 03/07/22 10:22 Baso % (Auto) 1.0 % 03/07/22 10:22 Neut # (Auto) 5.20 K/uL (1.4-6.5) 03/07/22 10:22 Lymph # (Auto) 0.47 K/uL (1.2-3.4) L 03/07/22 10:22 Carlton # (Auto) 0.44 K/uL (0.24-0.82) 03/07/22 10:22 Eos # (Auto) 0.03 K/uL (0-0.50) 03/07/22 10:22 Baso # (Auto) 0.06 K/uL (0-0.2) 03/07/22 10:22 Immature Gran # (Auto) 0.03 K/uL (0.00-0.02) H 03/07/22 10:22 PT 11.2 Seconds (9.0-12.0) 03/07/22 10:22 INR 1.1 (0.9-1.1) 03/07/22 10: APTT 26.1 Seconds (21.0-31.0) 03/07/22 10:22 PTT Ratio 0.9 03/07/22 10:22 VBG pH 7.35 (7.36-7.41) L 03/07/22 10:22 VBG pCO2 66 mmHg (38-50) H 03/07/22 10:22 VBG pO2 21 mmHg 03/07/22 10:22 VBG HCO3 36 mmol/L 03/07/22 10:22 VBG O2 Saturation < 60.0 % 03/07/22 10:22 VBG Base Excess 8.6 mEq/L 03/07/22 10:22 Sodium 141 mmol/L (136-145) 03/08/22 08:05 Potassium 3.4 mmol/L (3.5-5.1) L 03/08/22 08:05 Chloride 99 mmol/L (98-107) 03/08/22 08:05 Carbon Dioxide 36 mmol/L (21-32) H 03/08/22 08:05 Anion Gap 6 (3-11) 03/08/22 08:05 BUN 16 mg/dl (6-23) 03/08/22 08:05 Creatinine 0.78 mg/dl (0.6-1.2) 03/08/22 08:05 Est Cr Clr Drug Dosing 35.7 ml/min 03/08/22 08:05 Est GFR ( Amer) 78.1 ml/min 03/08/22 08:05 Est GFR (Non-Af Amer) 67.4 ml/min 03/08/22 08:05 BUN/Creatinine Ratio 20.5 (10-20) H 03/08/22 08:05 Glucose 85 mg/dl (70-99(Fasting)) 03/08/22 08:05 Calcium 9.0 mg/dl (8.5-10.1) 03/08/22 08:05 Magnesium 1.9 mg/dl (1.7-2.4) 03/07/22 10:22 Total Bilirubin 0.6 mg/dl (0.2-1.0) 03/07/22 10: Direct Bilirubin 0.1 mg/dl (0-0.2) 03/07/22 10:22 AST 23 U/L (13-39) 03/07/22 10:22 ALT 12 U/L (7-52) 03/07/22 10:22 Alkaline Phosphatase 66 U/L (34-104) 03/07/22 10:22 Troponin I High Sens 18.8 pg/ml (0-14) H 03/07/22 16:39 B-Natriuretic Peptide 1058 pg/ml (0-100) H 03/07/22 10:22 Total Protein 6.9 gm/dl (6.0-8.3) 03/07/22 10:22 Albumin 3.7 gm/dl (3.4-5.0) 03/07/22 10:22 Lipase 44 U/L (11-82) 03/07/22 10:22 Lipase Cancelled 03/07/22 10:22 Urine Color Yellow 03/07/22 Unknown Urine Appearance Clear (Clear) 03/07/22 Unknown Urine pH 7.5 (4.5-7.5) 03/07/22 Unknown Ur Specific [place] 1.006 (1.000-1.030) 03/07/22 Unknown Urine Protein Negative (Negative) 03/07/22 Unknown Urine Glucose (UA) Negative (Negative) 03/07/22 Unknown Urine Ketones Negative (Negative) 03/07/22 Unknown Urine Blood Negative (Negative) 03/07/22 Unknown Urine Nitrite Negative (Negative) 03/07/22 Unknown Urine Bilirubin Negative (Negative) 03/07/22 Unknown Urine Urobilinogen Negative (Negative) 03/07/22 Unknown Ur Leukocyte Esterase Negative (Negative) 03/07/22 Unknown SARS-CoV-2 (PCR) NEGATIVE (Negative) 03/07/22 10:05 Influenza Type A (PCR) Negative (Neg) 03/07/22 10:05 Influenza Type B (PCR) Negative (Neg) 03/07/22 10:05 RSV (RT-PCR) Negative (Neg) 03/07/22 10:05
--- NOTE | 2022-03-08 15:15 | XRay Report ---
XR chest 1V portable CLINICAL HISTORY: acute CHF TECHNIQUE: Single frontal radiograph of the chest was obtained. Comparison: Comparison is made to chest radiograph on 03/07/[address] chest 01/13/2022 FINDINGS: No lines and tubes are seen. Cardiomegaly is noted. The aortic arch is calcified. There is airspace o pacity in the right upper lobe, unchanged from prior exam. Right perihilar opacity is again seen. Pre viously noted left perihilar opacity has improved. There is a small left pleural effusion. IMPRESSION: Right apical opacity is again seen compatible with posttreatment change. Interval improvement in pulm onary edema. A few airspace opacities are seen most prominently in the right perihilar region which m ay represent pneumonia. ACT 112: Negative or not required by law. Electronically signed by: Rodríguez Villalta M.D. 03/08/2022 3:12 PM
[2022-03-08] MEDS ORDERED: FUROSEMIDE 40 MG/4 ML VIAL IV SCH (17:00)
--- NOTE | 2022-03-08 17:05 | Cardiology Consultation ---
Date of Consultation March 08, 2022 Assessment & Plan (1) Acute on chronic diastolic (congestive) heart failure: (2) PAF (paroxysmal atrial fibrillation): (3) COPD with acute exacerbation: (4) Acute respiratory failure with hypoxia: Plan 89-year-old with complex history of past diastolic heart failure presents now with acute on chronic diastolic heart failure superimposed on possible COPD exacerbation/chronic interstitial lung disease. Patient has clinically improved and chest x-ray improved on exam today Recommend: Continue IV furosemide today hold after p.m. dose. Increase spironolactone to 25 mg/day. Additional 20 mg potassium this evening. Reassess exam and renal function in a.m. likely switch to oral furosemide at that time given brisk response to current IV diuretics. CHF instructions History of Present Illness Reason for Consultation: Acute on chronic diastolic heart failure Requesting Physician: Dr. Martines Attending Physician: Bo Martines MD History of Present Illness Patient is a complex 89-year-old female with ongoing medical issues as per outpatient records 1. Paroxysmal atrial fibrillation, not on AC 1. On amiodarone, started 05/2021- reduced to 200 mg daily on 07/07/2021 2. Hypertension 3. Dyslipidemia 4. Valvular heart disease: Mild mitral stenosis, moderate mitral regurgitation, mild TR 5. Severe pulmonary HTN 6. History of pulmonary embolism status post knee surgery 7. Asthma/COPD 8. Osteoarthritis 9. Polyneuropathy 10. History of left breast cancer, status post left radical mastectomy 11. History of radiation pneumonitis 12. H/o right upper lobe lesion with possible carcinoma, status post empiric radiation 13. Anemia Patient has complex history with recent hospitalization with diastolic heart failure and COPD exacerbation possible RSV initiated in late December. She presents this admission noting several days history of worsening shortness of breath with chest x-ray on presentation demonstrated pulmonary edema superimposed on chronic interstitial lung disease. Patient has responded to IV diuretics. Currently comfortable. No chest pains or tachypalpitations. Appetite is fair. No difficulty take medications with patient in controlled setting. No bleeding difficulties currently No noted arrhythmias Allergies Allergy/AdvReac Type Severity Reaction Status Date / Time bee venom protein (honey bee) Allergy Severe ANAPHYLAXIS Verified 12/14/21 01:31 Home Medications Medication Instructions Recorded Confirmed Type aspirin 81 mg tablet,delayed 81 mg PO QAM 04/30/21 03/07/22 History release montelukast 10 mg tablet 10 mg PO HS 04/30/21 03/07/22 History tiotropium 2.5 mcg-olodaterol 2.5 1 puff inhalation QAM 04/30/21 03/07/22 History mcg/actuation mist for inhalation (Stiolto Respimat) calcium carbonate 500 mg calcium 500 mg PO BID 06/24/21 03/07/22 History (1,250 mg) chewable tablet docusate sodium 100 mg capsule 100 mg PO BID 06/24/21 03/07/22 History (Colace) donepezil 5 mg tablet 5 mg PO BID 06/24/21 03/07/22 History lorazepam 0.5 mg tablet 0.5 mg PO TID 06/24/21 03/07/22 History sertraline 100 mg tablet 200 mg PO QAM 07/06/21 03/07/22 History potassium chloride 10 mEq 10 meq PO DAILY #30 tabs 07/09/21 03/07/22 Rx tablet,extended release(part/cryst) amiodarone 200 mg tablet 200 mg PO QAM 10/02/21 03/07/22 History metoprolol tartrate 25 mg tablet 12.5 mg PO BID 10/02/21 03/07/22 History pantoprazole 40 mg tablet,delayed 40 mg PO BID 10/02/21 03/07/22 History release acetaminophen 325 mg tablet 650 mg PO Q4H PRN PAIN/FEVER 12/14/21 03/07/22 History (Tylenol) epinephrine 0.3 mg/0.3 mL 0.3 mg IM DIRECTED PRN Allergic 12/14/21 03/07/22 History injection, auto-injector (EpiPen) Reaction lidocaine 5 % topical patch 1 patch transdermal QAM 12/14/21 03/07/22 History ferrous sulfate 325 mg (65 mg 325 mg PO BID 30 days #60 tabs 12/16/21 03/07/22 Rx iron) tablet levalbuterol HCl 1.25 mg/3 mL 1.25 mg (3 mL) NEB Q4H PRN 12/16/21 03/07/22 Rx solution for nebulization shortness of breath or wheezing #36 mL albuterol sulfate 90 mcg/actuation 2 puff inhalation Q4H PRN 01/12/22 03/07/22 History aerosol inhaler Shortness Of Breath Or Wheezing losartan 25 mg tablet 25 mg PO DAILY 01/22/22 03/07/22 History spironolactone 25 mg tablet 12.5 mg PO DAILY 01/22/22 03/07/22 History amoxicillin 875 mg-potassium 1 tab PO BIDM #13 tabs 01/24/22 03/07/22 Rx clavulanate 125 mg tablet fluticasone propionate 50 2 spray CLEMENTINA Q24H #1 g 01/24/22 03/07/22 Rx mcg/actuation nasal spray,suspension furosemide 20 mg tablet 20 mg PO MoWeThSa@0900 #15 tabs 01/24/22 03/07/22 Rx furosemide 20 mg tablet 40 mg PO SuTuFr@0900 #30 tabs 01/24/22 03/07/22 Rx guaifenesin 600 mg tablet, 600 mg PO Q12 #14 tabs 01/24/22 03/07/22 Rx extended release 12 hr (Mucinex) Patient History Medical History (HFpEF) heart failure with preserved ejection fraction Abnormal CT of the chest Acute on chronic heart failure with preserved ejection fraction Anemia of chronic disease Anxiety Anxiety Asthma USING RESCUE INHALER FREQUENTLY/DAILY Asthma-COPD overlap syndrome Cancer BREAST CANCER-LEFT MASTECTOMY Chronic obstructive pulmonary disease COPD (chronic obstructive pulmonary disease) COVID-19 Deep vein thrombosis 15 YEARS AGO S/P LEG SURGERY Degenerative disc disease Dysphagia HX ESOPHAGEAL STRETCHING Fall GERD (gastroesophageal reflux disease) History of pulmonary embolism HTN (hypertension) Hypertension Osteoarthritis PAF (paroxysmal atrial fibrillation) PAF (paroxysmal atrial fibrillation) Prolapsed bladder Pulmonary nodule, right Rectal bleeding Senile degeneration of brain T12 burst fracture Surgical History History of cataract surgery RT/LEFT History of colonoscopy History of esophagogastroduodenoscopy (EGD) History of mastectomy LEFT (NO BP/LAB DRAWS) History of tonsillectomy History of tooth extraction History of total hysterectomy with bilateral salpingo-oophorectomy (BSO) History of total knee replacement LEFT/RT Family History Other Alzheimer disease Stroke Social History Smoking Status: Never smoker Second Hand Exposure: Yes (AT WORK); Hx Alcohol Use: No Hx Substance Use: No Preferred Language: Spanish Communication Ability: Effective 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: No Beliefs That Will Affect Care: None marital status: / Current Living Situation: Personal Care Facility Current Living Situation Comment: [facility] How many Children do You have: 1 Feels Safe at Home: Yes Childhood Exposure to Second-Hand Smoke: Yes Dental Care, Regularly: Yes Assistive Devices: Walker Review of Systems Review of Systems: All systems reviewed & are unremarkable except as noted in HPI & below Physical Exam Constitutional: + thin and + cachectic; no acute distress Eyes: PERRL, conjunctivae normal, anicteric sclerae ENMT: external ear and nose normal, oropharynx normal Cardiovascular: Rate/Rhythm: regular rate and regular rhythm Vessels: no JVD Extremities: + edema (Trace) Chest (Breasts): Additional Comments: Radiation changes anteriorly Musculoskeletal: no cyanosis or clubbing, extremities motor strength 5/5 Results & Data ([facility]) Vital Signs (Past 12 Hours) Vital Signs Temp Pulse Pulse Resp BP Pulse Ox O2 Del Method 03/08/22 16:19 95 Room Air 03/08/22 16:13 36.4 C 78 18 132/65 91 Room Air 03/08/22 16:12 70 03/08/22 14:53 71 17 94 Room Air 03/08/22 12:05 36.6 C 75 16 151/68 H 95 Room Air 03/08/22 08:30 Nasal Cannula 03/08/22 10:32 75 16 98 Nasal Cannula 03/08/22 08:14 36.8 C 69 20 164/73 H 100 Nasal Cannula 03/08/22 07:27 64 03/08/22 06:55 71 17 97 Nasal Cannula O2 Flow Rate 03/08/22 16:19 03/08/22 16:13 03/08/22 16:12 03/08/22 14:53 03/08/22 12:05 03/08/22 08:30 1 03/08/22 10:32 03/08/22 08:14 1 03/08/22 07:27 03/08/22 06:55 2 Laboratory Results Laboratory Results - last 24 hr 03/07/22 03/08/22 03/08/22 16:39 08:05 08:05 WBC 6.08 RBC 3.91 L Hgb 11.2 L Hct 35.1 MCV 89.8 MCH 28.6 MCHC 31.9 L RDW Std Deviation 61.2 H RDW Coeff of [place] 18.7 H Plt Count 235 MPV 10.5 Sodium 141 Potassium 3.4 L Chloride 99 Carbon Dioxide 36 H Anion Gap 6 BUN 16 Creatinine 0.78 Est Cr Clr Drug Dosing 35.7 Est GFR ( Amer) 78.1 Est GFR (Non-Af Amer) 67.4 BUN/Creatinine Ratio 20.5 H Glucose 85 Calcium 9.0 Troponin I High Sens 18.8 H
[2022-03-08] MEDS ORDERED: POTASSIUM CHLORIDE CRTAB 20 MEQ TABCR PO ONE (17:09)
[2022-03-08] MEDS: DOXYCYCLINE HYCLATE 100 MG CAP PO SCH (21:31)
[2022-03-08] MEDS: HEPARIN SOD 5,000 UNIT/0.5 ML VIAL SQ SCH (21:32)
[2022-03-08] MEDS: MONTELUKAST SODIUM 10 MG TABLET PO SCH (21:32)
[2022-03-09 04:16] VITALS: TEMP 97.9
[2022-03-09] MEDS: ALBUT/IPRATROP 3MG/0.5MG NEB 3 ML VIAL NEB SCH ×3 (07:21→15:12)
[2022-03-09] MEDS: LOSARTAN POTASSIUM 25 MG TAB PO SCH (08:05)
[2022-03-09] MEDS: LIDOCAINE 5% 1 PATCH TD SCH (08:05)
[2022-03-09] MEDS: POTASSIUM CHLORIDE 10 MEQ TABCR PO SCH (08:06)
[2022-03-09] MEDS: AMIODARONE 200 MG TAB PO SCH (08:06)
[2022-03-09] MEDS: SERTRALINE HCL 100 MG TABLET PO SCH (08:06)
[2022-03-09] MEDS: PANTOprazole 40 MG TAB PO SCH (08:06)
[2022-03-09] MEDS: guaiFENesin 600 MG TABCR PO SCH (08:07)
[2022-03-09] MEDS: FLUTICASONE PROPIONATE NA SPR 16 GM BTL NAE SCH (08:07)
[2022-03-09] MEDS: DOCUSATE SODIUM 100 MG CAP PO SCH (08:07)
[2022-03-09] MEDS: UMECLIDINIUM/VILANTEROL 62.5/25MCG 7 PUFFS/INHALER INH SCH (08:07)
[2022-03-09] MEDS: HEPARIN SOD 5,000 UNIT/0.5 ML VIAL SQ SCH (08:07)
[2022-03-09] MEDS: CALCIUM CARBONATE 1250MG TAB PO SCH (08:07)
[2022-03-09] MEDS: DOXYCYCLINE HYCLATE 100 MG CAP PO SCH (08:07)
[2022-03-09] MEDS: ASPIRIN 81 MG ECTAB PO SCH (08:07)
[2022-03-09] MEDS: FERROUS SULFATE 325 MG TAB PO SCH (08:07)
[2022-03-09] MEDS: DONEPEZIL HCL 5 MG TAB PO SCH (08:07)
[2022-03-09] MEDS: LORazepam 0.5 MG TAB PO SCH ×2 (08:29→14:15)
[2022-03-09] MEDS: METOPROLOL TARTRATE 25 MG TAB PO SCH (08:29)
[2022-03-09] MEDS ORDERED: predniSONE 20 MG TAB PO SCH (09:00)
[2022-03-09] MEDS ORDERED: SPIRONOLACTONE 25 MG TAB PO SCH (09:00)
[2022-03-09] MEDS ORDERED: FUROSEMIDE 20 MG TAB PO SCH (09:00)
[2022-03-09] MEDS ORDERED: POTASSIUM CHLORIDE CRTAB 20 MEQ TABCR PO ONE (09:28)
[2022-03-09 10:30] VITALS: BP 108/60
--- NOTE | 2022-03-09 10:49 | Cardiology Progress Note ---
Date of Service March 09, 2022 Assessment & Plan (1) Acute on chronic diastolic (congestive) heart failure: (2) PAF (paroxysmal atrial fibrillation): (3) COPD with acute exacerbation: (4) Acute respiratory failure with hypoxia: Plan 89-year-old with complex history of past diastolic heart failure presents initially with acute on chronic diastolic heart failure superimposed on possible COPD exacerbation/chronic interstitial lung disease. Patient has clinically improved rapidity with IV diuresis. Recommend: Continue Increase spironolactone to 25 mg/day. potassium supplemented this am with 40 meq daily- recommend Dc on KCl 20 meq daily in addition to spironolactone. Renal function stable- restart Lasix 40 mg PO daily. CHF instructions, 2g sodium diet, daily standing weights. Repeat BMP 1 week after discharge to reassess renal function and electrolytes Okay for discharge from a cardiology standpoint- reccomend close outpatient follow up in 1-2 weeks. Admission and Anticipated Discharge Date Admission Date: March 07, 2022 Supervising Physician Co-Signing Physician Notes Patient was seen and personally examined. Clinically improved this morning with resolve of acutely decompensated diastolic heart failure. Medication adjustments as listed above. Subjective 89-year-old with complex history of past diastolic heart failure presents now with acute on chronic diastolic heart failure superimposed on possible COPD exacerbation/chronic interstitial lung disease. Patient clinically improved with the use of IV furosemide. Evening dose of Lasix was held yesterday and spironolactone was increased to 25 mg daily. Tele: NSR 80s I&O: -65 mL Weight: 49.5 kg >> 45 kg Labs: Hemoglobin stable, potassium low at 3.4 (supplemented with 40 meq of KCL), sodium within normal limits, creatinine 0.70 Upon entrance into the room patient resting comfortably in the chair. Notes significant improvement in her breathing since admission. Resolution in lower extremity edema. No chest pain or palpitations. Continues to sleep with HOB minimally elevated, denies PND. Review of Systems Review of Systems: All systems reviewed & are unremarkable except as noted in HPI & below Physical Exam Constitutional: + thin and + cachectic; no acute distress Eyes: PERRL, conjunctivae normal, anicteric sclerae ENMT: external ear and nose normal, oropharynx normal Cardiovascular: Rate/Rhythm: regular rate and regular rhythm Vessels: no JV D Extremities: no pedal edema and no edema Musculoskeletal: no cyanosis or clubbing, extremities motor strength 07/01 Psychiatric: A+Ox3, euthymic affect (EKLUTNA) Results & Data ([facility]) Vital Signs (Past 12 Hours) Vital Signs Temp Pulse Pulse Pulse Resp BP Pulse Ox 03/09/22 10:25 36.6 C 78 17 108/60 94 03/09/22 08:44 18 94 03/09/22 07:51 36.6 C 76 19 136/66 94 03/09/22 07:27 94 H 03/09/22 07:23 79 18 85 L 03/09/22 04:15 36.6 C 96 H 20 185/95 H 92 03/09/22 02:44 81 03/08/22 23:35 36.4 C L 78 20 124/58 L 94 O2 Del Method 03/09/22 10:25 Room Air 03/09/22 08:44 Room Air 03/09/22 07:51 Room Air 03/09/22 07:27 03/09/22 07:23 Room Air 03/09/22 04:15 Room Air 03/09/22 02:44 03/08/22 23:35 Room Air Laboratory Results Intake and Output 03/08/22 03/09/22 03/09/22 22:59 06:59 14:59 Intake Total 240 / 715 50 / 715 240 / 240 Balance 240 / 415 50 / 415 240 / 240 Intake: Oral 240 / 715 50 / 715 240 / 240 Other: # Unmeasured Voids 1 Weight 45 kg Weight Measurement Method Standing Scale
--- NOTE | 2022-03-09 13:43 | Hospitalist Progress Note ---
Date of Service March 09, 2022 Assessment & Plan (1) Acute on chronic diastolic (congestive) heart failure: (2) PAF (paroxysmal atrial fibrillation): (3) Hypertension: (4) Anemia of chronic disease: (5) Cancer: (6) Depression, unspecified: (7) Senile degeneration of brain: (8) COPD with acute exacerbation: Plan Acute hypoxic respiratory failure Multifactorial:acute on chronic diastolic heart failure, COPD exacerbation. -ECHO: 01/12/22; EF 65 to 70%, left atrium severely dilated, mild MS, mild TR, moderate MR, severe pulmonary hypertension -CXR:Right apical opacity is again seen compatible with posttreatment change. Interval improvement in pulmonary edema. A few airspace opacities are seen most prominently in the right perihilar region which may represent pneumonia. -Empirically on doxycycline IV Lasix transition to p.o. Lasix 40 mg daily Aldactone increased to 25 mg daily Monitor I's and O's, daily weight Appreciate cardiology input Continue prednisone taper course Continue home inhalers Needs follow-up with cardiology upon discharge Needs BMP in 1 week upon discharge Hypokalemia Replete electrolytes as needed Paroxysmal Atrial Fibrillation: HTN Continue amiodarone and metoprolol Not on anticoagulation in setting of chronic anemia Continue Losartan Anemia of chronic disease: Denies any bleeding issues continue iron supplementation H/O Breast Cancer: S/P left mastectomy H/O lung carcinoma s/p XRT H/O Radiation pneumonitis Depression Continue Sertraline Recent inpatient admission with OD with Ativan over the past year. Senile degeneration of brain: Continue Aricept Severe protein calorie malnutrition Cachexia BMI 16 Dietitian consulted DVT Px: Heparin SQ Code Status: DNR/DNI Admission and Anticipated Discharge Date Admission Date: March 07, 2022 Subjective Patient is seen and examined at bedside States feeling much better today Dyspnea much improved Denies any chest pain, shortness of breath, dizziness, nausea, abdominal pain Discussed with cardiology today Saturating well on room air Review of Systems Review of Systems: All systems reviewed & are unremarkable except as noted in Subjective Physical Exam Physical Exam: Physical Exam: Vitals signs as noted above General Appearance: Thin, frail, elderly, no apparent distress Head: normocephalic, Atraumatic Eyes: normal inspection, EOMI Neck: supple, Trachea midline Respiratory/Chest: Normal breath sounds, R basal crackles, No accessory muscle use Cardiovascular: S1, S2, No murmur Abdomen/GI:Soft, Non tender, Bowel sounds present Extremities/Musculoskeletal:normal inspection, Trace edema Neurologic/Psych:AAOX3, grossly no focal neurological deficits Skin: normal color, warm Results & Data Results & Data ([facility]) Vital Signs (Past 12 Hours) Vital Signs Temp Pulse Pulse Pulse Resp BP Pulse Ox 03/09/22 08:00 03/09/22 10:43 78 18 91 03/09/22 10:25 36.6 C 78 17 108/60 94 03/09/22 08:44 18 94 03/09/22 07:51 36.6 C 76 19 136/66 94 03/09/22 07:27 94 H 03/09/22 07:23 79 18 85 L 03/09/22 04:15 36.6 C 96 H 20 185/95 H 92 03/09/22 02:44 81 O2 Del Method 03/09/22 08:00 Room Air 03/09/22 10:43 Room Air 03/09/22 10:25 Room Air 03/09/22 08:44 Room Air 03/09/22 07:51 Room Air 03/09/22 07:27 03/09/22 07:23 Room Air 03/09/22 04:15 Room Air 03/09/22 02:44
[2022-03-09 15:13] VITALS: PULSE 74; O2SAT 96
--- NOTE | 2022-03-09 15:40 | Discharge Summary ---
Date of Service March 09, 2022 Admission HPI Per Admitting Provider This is an 89-year-old female with a complex past medical history the presents to the ED with her son, Morgan with worsening SOB that has been occurring over the last 4-5 days. Chest x-ray in the ED shows pulmonary edema. PMH includes: left breast cancer s/p left radical mastectomy, radiation pneumonitis, concerning right upper lobe lesion for possible carcinoma status post empiric radiation, asthmaCOPD, HTN, HFpEF, Senile Degeneration of the Brain, pAF, and anemia of chronic disease. Pt with increasing inpatient hospitalizations 06/24 to 06/29/2021, 07/06-07/09 for SOB and secondary to acute HFpEF. She also had an admission recently 11/12-11/18 for acute on chronic CHF also with testing positive for COVID-19 for which she completed an inpatient course of steroids and Remdesivir. Additional inpatient stays from 10 3-10 6 status post fall and 01/12-01/24 for pneumonia. She underwent thoracentesis on right at 800 mL in 06/2021 and it was transudative and negative for malignancy. Pt has senile degeneration of the brain and is able to communicate and participate in her goals of care, but is a poor historian overall. Upon examination, patient appeared in no apparent distress. Patient will be admitted under hospitalist service for further evaluation and management. Please see A/P for further details. Admission Exam Per Admitting Provider Physical Exam Constitutional: Neuro: AAOx4, PERRLA, no aphagia, memory changes, CNII-XII grossly intact HEENT: head normocephalic, moist mucus membranes CV: S1/S2, (-) M/G/R, (-) edema, cap refill < 3 seconds Resp: Lungs CTA in all croft. On RA GI: Abdomen S/NT/ND, Ax4 bowel sounds, (-) CVA tenderness Musculoskeletal: 5/5 B/L UE strength, 5/5 B/L LE strength. No gait disturbance Skin: (-) rashes , (-) erythema. Psych: euthymic mood Principal Diagnosis Acute hypoxic respiratory failure Acute on chronic diastolic heart failure Acute COPD Exacerbation Discharge Data Allergies Allergy/AdvReac Type Severity Reaction Status Date / Time bee venom protein (honey bee) Allergy Severe ANAPHYLAXIS Verified 12/14/21 01:31 Consultations 03/07/22 12:51 ED Decision to Admit Stat 03/07/22 13:17 Consult Cardiology Routine Procedures Performed Laboratory Results WBC 6.08 K/ul (4.8-10.8) 03/08/22 08:05 RBC 3.91 M/uL (3.93-5.22) L 03/08/22 08:05 Hgb 11.2 g/dl (12.0-16.0) L 03/08/22 08:05 Hct 35.1 % (34.1-44.9) 03/08/22 08:05 MCV 89.8 fL (80.0-100.0) 03/08/22 08:05 MCH 28.6 pg (25.0-34.0) 03/08/22 08:05 MCHC 31.9 g/dL (32.0-36.0) L 03/08/22 08:05 RDW Std Deviation 61.2 fL (36.4-46.3) H 03/08/22 08:05 RDW Coeff of [place] 18.7 % (11.5-14.5) H 03/08/22 08:05 Plt Count 235 K/uL (130-400) 03/08/22 08:05 MPV 10.5 fL (9.4-12.3) 03/08/22 08:05 Immature Gran % (Auto) 0.5 % 03/07/22 10:22 Neut % (Auto) 83.4 % 03/07/22 10:22 Lymph % (Auto) 7.5 % 03/07/22 10:22 Ada % (Auto) 7.1 % 03/07/22 10:22 Eos % (Auto) 0.5 % 03/07/22 10:22 Baso % (Auto) 1.0 % 03/07/22 10:22 Neut # (Auto) 5.20 K/uL (1.4-6.5) 03/07/22 10:22 Lymph # (Auto) 0.47 K/uL (1.2-3.4) L 03/07/22 10:22 Ada # (Auto) 0.44 K/uL (0.24-0.82) 03/07/22 10:22 Eos # (Auto) 0.03 K/uL (0-0.50) 03/07/22 10:22 Baso # (Auto) 0.06 K/uL (0-0.2) 03/07/22 10:22 Immature Gran # (Auto) 0.03 K/uL (0.00-0.02) H 03/07/22 10:22 PT 11.2 Seconds (9.0-12.0) 03/07/22 10: INR 1.1 (0.9-1.1) 03/07/22 10: APTT 26.1 Seconds (21.0-31.0) 03/07/22 10: PTT Ratio 0.9 03/07/22 10: VBG pH 7.35 (7.36-7.41) L 03/07/22 10: VBG pCO2 66 mmHg (38-50) H 03/07/22 10: VBG pO2 21 mmHg 03/07/22 10: VBG HCO3 36 mmol/L 03/07/22 10:22 VBG O2 Saturation < 60.0 % 03/07/22 10:22 VBG Base Excess 8.6 mEq/L 03/07/22 10:22 Sodium 141 mmol/L (136-145) 03/08/22 08:05 Potassium 3.4 mmol/L (3.5-5.1) L 03/08/22 08:05 Chloride 99 mmol/L (98-107) 03/08/22 08:05 Carbon Dioxide 36 mmol/L (21-32) H 03/08/22 08:05 Anion Gap 6 (3-11) 03/08/22 08:05 BUN 16 mg/dl (6-23) 03/08/22 08:05 Creatinine 0.78 mg/dl (0.6-1.2) 03/08/22 08:05 Est Cr Clr Drug Dosing 35.7 ml/min 03/08/22 08:05 Est GFR ( Amer) 78.1 ml/min 03/08/22 08:05 Est GFR (Non-Af Amer) 67.4 ml/min 03/08/22 08:05 BUN/Creatinine Ratio 20.5 (10-20) H 03/08/22 08:05 Glucose 85 mg/dl (70-99(Fasting)) 03/08/22 08:05 Calcium 9.0 mg/dl (8.5-10.1) 03/08/22 08:05 Magnesium 1.9 mg/dl (1.7-2.4) 03/07/22 10:22 Total Bilirubin 0.6 mg/dl (0.2-1.0) 03/07/22 10:22 Direct Bilirubin 0.1 mg/dl (0-0.2) 03/07/22 10:22 AST 23 U/L (13-39) 03/07/22 10:22 ALT 12 U/L (7-52) 03/07/22 10:22 Alkaline Phosphatase 66 U/L (34-104) 03/07/22 10:22 Troponin I High Sens 18.8 pg/ml (0-14) H 03/07/22 16:39 B-Natriuretic Peptide 1058 pg/ml (0-100) H 03/07/22 10:22 Total Protein 6.9 gm/dl (6.0-8.3) 03/07/22 10:22 Albumin 3.7 gm/dl (3.4-5.0) 03/07/22 10:22 Lipase 44 U/L (11-82) 03/07/22 10:22 Lipase Cancelled 03/07/22 10:22 Urine Color Yellow 03/07/22 Unknown Urine Appearance Clear (Clear) 03/07/22 Unknown Urine pH 7.5 (4.5-7.5) 03/07/22 Unknown Ur Specific [place] 1.006 (1.000-1.030) 03/07/22 Unknown Urine Protein Negative (Negative) 03/07/22 Unknown Urine Glucose (UA) Negative (Negative) 03/07/22 Unknown Urine Ketones Negative (Negative) 03/07/22 Unknown Urine Blood Negative (Negative) 03/07/22 Unknown Urine Nitrite Negative (Negative) 03/07/22 Unknown Urine Bilirubin Negative (Negative) 03/07/22 Unknown Urine Urobilinogen Negative (Negative) 03/07/22 Unknown Ur Leukocyte Esterase Negative (Negative) 03/07/22 Unknown SARS-CoV-2 (PCR) NEGATIVE (Negative) 03/07/22 10:05 Influenza Type A (PCR) Negative (Neg) 03/07/22 10:05 Influenza Type B (PCR) Negative (Neg) 03/07/22 10:05 RSV (RT-PCR) Negative (Neg) 03/07/22 10:05 Impressions Chest X-Ray 03/08/22 08:00 XR chest 1V portable CLINICAL HISTORY: acute CHF TECHNIQUE: Single frontal radiograph of the chest was obtained. Comparison: Comparison is made to chest radiograph on 03/07/[address] chest 01/13/2022 FINDINGS: No lines and tubes are seen. Cardiomegaly is noted. The aortic arch is calcified. There is airspace opacity in the right upper lobe, unchanged from prior exam. Right perihilar opacity is again seen. Previously noted left perihilar opacity has improved. There is a small left pleural effusion. IMPRESSION: Right apical opacity is again seen compatible with posttreatment change. Interval improvement in pulmonary edema. A few airspace opacities are seen most prominently in the right perihilar region which may represent pneumonia. ACT 112: Negative or not required by law. Electronically signed by: Rodríguez Villalta M.D. 03/08/2022 3:12 PM Hospital Course (1) Acute on chronic diastolic (congestive) heart failure: (2) PAF (paroxysmal atrial fibrillation): (3) Hypertension: (4) Anemia of chronic disease: (5) Cancer: (6) Depression, unspecified: (7) Senile degeneration of brain: (8) COPD with acute exacerbation: Plan Acute hypoxic respiratory failure Multifactorial:acute on chronic diastolic heart failure, COPD exacerbation. -ECHO: 01/12/22; EF 65 to 70%, left atrium severely dilated, mild MS, mild TR, moderate MR, severe pulmonary hypertension -CXR:Right apical opacity is again seen compatible with posttreatment change. Interval improvement in pulmonary edema. A few airspace opacities are seen most prominently in the right perihilar region which may represent pneumonia. -Empirically on doxycycline IV Lasix transition to p.o. Lasix 40 mg daily Aldactone increased to 25 mg daily Monitor I's and O's, daily weight Appreciate cardiology input Continue prednisone taper course Continue home inhalers Needs follow-up with cardiology upon discharge Needs BMP in 1 week upon discharge Hypokalemia Replete electrolytes as needed Paroxysmal Atrial Fibrillation: HTN Continue amiodarone and metoprolol Not on anticoagulation in setting of chronic anemia Continue Losartan Anemia of chronic disease: Denies any bleeding issues continue iron supplementation H/O Breast Cancer: S/P left mastectomy H/O lung carcinoma s/p XRT H/O Radiation pneumonitis Depression Continue Sertraline Recent inpatient admission with OD with Ativan over the past year. Senile degeneration of brain: Continue Aricept Severe protein calorie malnutrition Cachexia BMI 16 Dietitian consulted DVT Px: Heparin SQ Code Status: DNR/DNI Total Time Total Time Spent Total Time Spent (In Minutes): 50 minutes Discharge Plan Discharge Items Patient Disposition: Transfer Intermediate Fac Reason For Visit: SOB Discharge Diagnosis: Acute hypoxic respiratory failure Acute on chronic diastolic heart failure Acute COPD Exacerbation Activity: Per Instructions section Exercise/Sports: Wait until after follow-up appointment Non-emergency contact: Primary Care Provider and [employer] [facility] Call non-emergency contact if: you have any medication questions, your symptoms worsen, your pain is concerning for you and you have a fever Follow-up/Referrals: [facility] [Primary Care Provider] - Dietitian Info: Minced and Moist Diet: Heart Healthy Addtl Attending Provider Instructions: Follow-up with your primary care physician in 1 week Follow-up with your scarifier operator Dr. Lyons in 1-2 weeks --- Obtain blood test (basic metabolic panel) in 1 week and follow-up with your scarifier operator for further recommendations. Medication Changes: --- Start taking Lasix 40 mg daily --- Your spironolactone is increased to 25 mg daily --- Take potassium chloride 20 mEq daily --- Complete prednisone, doxycycline course as prescribed. Prednisone taper course Start taking prednisone 20 mg daily for 2 days, then take 10 mg daily for 2 days and stop Seek immediate medical attention if your symptoms reoccur or worsen Please take all medications as instructed on discharge list below. Please call if you have any questions or problems. You can reach a [facility] hospitalist on duty at [facility] 24 hours a day by calling [phone] Call your Primary Care doctor if any of the following symptoms or problems start or get worse: * Shortness of breath or difficulty breathing * Wake up at night short of breath * Chest pain * Cough * Swelling of your hands, feet, or legs * More fatigued or tired with your normal activity * Palpitations - sudden fast heart beats WEIGHT * Weigh yourself every morning after using the bathroom. * Use the same scale. * Wear the same amount of clothing. * Write your weight down on a chart. * Call your Primary Care doctor if you gain more than 2-3 pounds in 1-2 days. MEDICATIONS * Use this discharge instruction sheet for medication instructions. * Take your medications at the time your doctor ordered. * Do not skip a dose of your medicines. * If you miss a dose of medicine, take it as soon as possible, but DO NOT DOUBLE A DOSE. * Read your medicine information when you get home. * Know all of the side effects of your medicine. If in doubt, ask your pharmacist * Call your Primary Care doctor's office if you have any side effects. * Be sure all of your doctors know what medicine and herbs you take (including cold, flu, and herbal medicine). Take the following with you to your follow-up doctor appointments: * Weight Chart * Medication List * List of questions Do not drink excessive alcohol, beer or wine. Pending Studies at Discharge: No Stand-Alone Forms: My [facility] Skilled Items Patient informed of condition?: Yes DNR: Yes Discharge Level of Care: Skilled Communicable Disease: No Discharge Prognosis: Stable Lines: None Urinary Catheter: No Medications and DC Order Prescriptions: New doxycycline hyclate 100 mg Capsule 100 mg PO BID Qty: 8 0RF spironolactone 25 mg Tablet 25 mg PO DAILY Qty: 30 1RF prednisone 10 mg tablet 10 mg PO DIRECTED Qty: 6 0RF Rx Instructions: see taper instructions: Start taking prednisone 20 mg daily for 2 days, then take 10 mg daily for 2 days and stop Continued aspirin 81 mg Tablet,Delayed Release (Dr/Ec) 81 mg PO QAM Stiolto Respimat 2.5-2.5 mcg/actuation Mist 1 puff INHALATION QAM montelukast 10 mg tablet 10 mg PO HS Rx Instructions: TAKE 1 TABLET BY MOUTH EVERYDAY AT BEDTIME donepezil 5 mg Tablet 5 mg PO BID lorazepam 0.5 mg Tablet 0.5 mg PO TID Rx Instructions: TAKES AT 0630, 1500 & 2000. docusate sodium [Colace] 100 mg Capsule 100 mg PO BID calcium carbonate 500 mg calcium (1,250 mg) Tablet,Chewable 500 mg PO BID Rx Instructions: TAKE PRIOR TO BREAKFAST AND DINNER amiodarone 200 mg tablet 200 mg PO QAM pantoprazole 40 mg tablet,delayed release (DR/EC) 40 mg PO BID metoprolol tartrate 25 mg tablet 12.5 mg PO BID acetaminophen [Tylenol] 325 mg Tablet 650 mg PO Q4H PRN (Reason: PAIN/FEVER) epinephrine [EpiPen] 0.3 mg/0.3 mL Auto-Injector 0.3 mg IM DIRECTED PRN (Reason: Allergic Reaction) lidocaine 5 % adhesive patch,medicated 1 patch transdermal QAM Rx Instructions: ON 12 HOURS, OFF 12 HOURS. levalbuterol HCl 1.25 mg/3 mL Solution For Nebulization 1.25 mg NEB Q4H PRN (Reason: shortness of breath or wheezing) Qty: 36 0RF ferrous sulfate 325 mg (65 mg iron) Tablet 325 mg PO BID 30 Days Qty: 60 0RF albuterol sulfate 90 mcg/actuation HFA aerosol inhaler 2 puff INHALATION Q4H PRN (Reason: Shortness Of Breath Or Wheezing) losartan 25 mg tablet 25 mg PO DAILY fluticasone propionate 50 mcg/actuation Schaller,Suspension 2 spray CLEMENTINA Q24H Qty: 1 0RF guaifenesin [Mucinex] 600 mg Tablet Extended Release 12hr 600 mg PO Q12 Qty: 14 0RF sertraline 100 mg tablet 200 mg PO QAM Changed furosemide 20 mg Tablet 40 mg PO DAILY Qty: 60 0RF potassium chloride 10 mEq Tablet,Er Particles/Crystals 20 meq PO DAILY Qty: 30 0RF Discontinued spironolactone 25 mg tablet 12.5 mg PO DAILY furosemide 20 mg Tablet 40 mg PO SuTuFr@0900 Qty: 30 0RF amoxicillin-pot clavulanate 875-125 mg Tablet 1 tab PO BIDM Qty: 13 0RF Discharge Orders: Discharge Order (Routine); Ordered 03/09/22 Ordered By: Vito Noble Admission Data Admit Date/Time: 03/07/22 13:17 Attending Provider: Vito Noble Admit Provider: Bo Martnies Primary Care Provider: [facility] Other Providers: Bo Martines ; Chiki Shin
[2022-03-10] MEDS ORDERED: FUROSEMIDE 40 MG TAB PO SCH (09:00)
[2022-03-10] MEDS ORDERED: POTASSIUM CHLORIDE CRTAB 20 MEQ TABCR PO SCH (09:00)
== END 2022-03-09 16:59 | DRG 291 ==
LOC: ED 09:30 → SUATTDRO 13:17 → 2W 13:17

== ENCOUNTER 2022-04-12 12:20 | Inpatient (IN) ==
[2022-04-12] MEDS ORDERED: ONDANSETRON INJ 2 MG/ML 2 ML VIAL IV STA (12:30)
[2022-04-12] MEDS ORDERED: fentaNYL citrate 100 MCG/2 ML VIAL IV STA (12:30)
--- NOTE | 2022-04-12 12:35 | Emergency Department Note ---
Impression & Plan Closed fracture of right hip, Fall, Closed pelvic fracture, Pulmonary edema ED Provider Note NAME: NALLELY NOBLE AGE: 89 SEX: F : 1930 ARRIVES VIA: Ambulance INFORMANT: Patient, EMS ED PROVIDER(S): Jamari Blue DO CHIEF COMPLAINT: Fall HPI: The patient is an 89-year-old female who presented to the emergency department after a fall. The patient lives in a personal snf. She went to the bathroom however she forgot her walker. She fell from a standing position landing on her right side. The patient herself states that she did strike her head. She denies having any headache or back pain. She denies having any chest pain but she did report to the nurse that she had some rib pain after the fall. She denies having any nausea or vomiting. She denies having any recent fevers or colds. The patient states she was unable to stand because of pain in her right leg. The patient arrived via BLS. ROS: See above HPI for pertinent positives & negatives. A total of 10 systems reviewed and were otherwise negative. PAST MEDICAL HISTORY: See Below PAST SURGICAL HISTORY: See Below FAMILY HISTORY: See Below SOCIAL HISTORY: See Below HOME MEDICATIONS: See Below ALLERGIES: See Below VITALS: See Below PHYSICAL EXAMINATION: GENERAL: Patient is awake and alert. She is very anxious appearing. She a ppears to be uncomfortable. EYES: The conjunctivae are clear. The pupils are round and reactive. EARS, NOSE, MOUTH AND THROAT: The nose is without any evidence of any deformity. NECK: The neck is nontender and supple. RESPIRATORY: Diminished breath sounds are noted throughout. CARDIOVASCULAR: Regular rate and rhythm noted there no murmurs rubs or gallops normal S1 normal S2. GASTROINTESTINAL: The abdomen is soft. Abdomen is nontender. BACK: No midline tenderness was noted. MUSCULOSKELETAL/EXTREMITIES: There is shortening and pain with range of motion testing right hip. Pulses are symmetric in both feet. SKIN: Skin is warm and dry. Pedal edema was noted bilaterally. NEUROLOGIC: Patient is awake and oriented to person place and situation. MEDICAL DECISION MAKING: The patient is an 89-year-old female who presented to the emergency department after a fall. She fell from a standing position in her bathroom. She did strike her head and had a physical exam consistent with a hip fracture. The patient was treated with IV pain medication in the emergency department. She was placed on oxygen as her oxygen level had dropped somewhat. I am unsure if this is secondary to the patient's medications she was given for pain or possibly secondary to pulmonary edema. The patient was reevaluated multiple times. I discussed patient's laboratory and radiographic studies with her. She was found to have an impacted right hip fracture as well as a pelvic fracture. I discussed the patient's condition with the family as well. I discussed the patient's condition with the on-call [facility] hospitalist group as well as the [facility] orthopedic doctor. The patient may require surgical intervention and would likely require medical clearance. Currently she does not take any blood thinners. Triage Nursing notes reviewed. Prior medical records reviewed Vital Signs: reviewed and remarkable for hypoxia. Differential diagnosis: Fracture, dislocation, contusion, intra-abdominal, pneumothorax, intrathoracic, intracranial, neurologic, compartment syndrome, rhabdomyolysis, as well as other pathologies. ER treatment provided: See below Diagnostics interpreted by me: ECG: EKG was obtained in the emergency department. My interpretation is sinus rhythm at 83 bpm. There is no ectopy. There is no acute ST segment abnorm alities. Peak T waves were noted in the apical leads. This was compared to a tracing from March 07, 2022. No significant changes were noted. Cardiac Monitoring: An order was placed for continuous cardiac monitoring. The monitor shows a rate of 79 bpm with sinus rhythm. Laboratory studies: As stated above and show below. Imaging studies: See below. Radiographic imaging was reviewed by myself Consultation(s): I discussed this case with Deb who is on for the [facility] hospitalist group. I discussed this case with Dr. Dudley who is on-call for the [facility] orthopedic group. Past Med/Surg History Medical History (HFpEF) heart failure with preserved ejection fraction Abnormal CT of the chest Acute on chronic heart failure with preserved ejection fraction Anemia of chronic disease Anxiety Anxiety Asthma USING RESCUE INHALER FREQUENTLY/DAILY Asthma-COPD overlap syndrome Cancer BREAST CANCER-LEFT MASTECTOMY Chronic obstructive pulmonary disease COPD (chronic obstructive pulmonary disease) COVID-19 Deep vein thrombosis 15 YEARS AGO S/P LEG SURGERY Degenerative disc disease Dysphagia HX ESOPHAGEAL STRETCHING Fall GERD (gastroesophageal reflux disease) History of pulmonary embolism HTN (hypertension) Hypertension Osteoarthritis PAF (paroxysmal atrial fibrillation) PAF (paroxysmal atrial fibrillation) Prolapsed bladder Pulmonary nodule, right Rectal bleeding Senile degeneration of brain T12 burst fracture Surgical History History of cataract surgery RT/LEFT History of colonoscopy History of esophagogastroduodenoscopy (EGD) History of mastectomy LEFT (NO BP/LAB DRAWS) History of tonsillectomy History of tooth extraction History of total hysterectomy with bilateral salpingo-oophorectomy (BSO) History of total knee replacement LEFT/RT Family History Other Alzheimer disease Stroke Social History Smoking Status: Never smoker Second Hand Exposure: Yes (AT WORK); Hx Alcohol Use: No Hx Substance Use: No Preferred Language: Maori Communication Ability: Effective Rn Wound Care Required: No Beliefs That Will Affect Care: None marital status: / Current Living Situation: Personal Care Facility Current Living Situation Comment: [facility] How many Children do You have: 1 Feels Safe at Home: Yes Childhood Exposure to Second-Hand Smoke: Yes Dental Care, Regularly: Yes Assistive Devices: Walker Allergies Allergies Allergy/AdvReac Type Severity Reaction Status Date / Time bee venom protein (honey bee) Allergy Severe ANAPHYLAXIS Verified 12/14/21 01:31 Home Meds Home Medications Medication Instructions Recorded Confirmed aspirin 81 mg tablet,delayed 81 mg PO QAM 04/30/21 04/12/22 release montelukast 10 mg tablet 10 mg PO HS 04/30/21 04/12/22 docusate sodium 100 mg capsule 100 mg PO BID 06/24/21 04/12/22 (Colace) donepezil 5 mg tablet 5 mg PO BID 06/24/21 04/12/22 lorazepam 0.5 mg tablet 0.5 mg PO TID 06/24/21 04/12/22 sertraline 100 mg tablet 200 mg PO QAM 07/06/21 04/12/22 amiodarone 200 mg tablet 200 mg PO QAM 10/02/21 04/12/22 metoprolol tartrate 25 mg tablet 12.5 mg PO BID 10/02/21 04/12/22 pantoprazole 40 mg tablet,delayed 40 mg PO BID 10/02/21 04/12/22 release acetaminophen 325 mg tablet 650 mg PO Q4H PRN PAIN/FEVER 12/14/21 04/12/22 (Tylenol) epinephrine 0.3 mg/0.3 mL 0.3 mg IM DIRECTED PRN Allergic 12/14/21 04/12/22 injection, auto-injector (EpiPen) Reaction lidocaine 5 % topical patch 1 patch transdermal QAM 12/14/21 04/12/22 bupropion HCl 100 mg tablet,12 hr 100 mg PO DAILY 04/12/22 04/12/22 sustained-release famotidine 20 mg tablet 20 mg PO BID 04/12/22 04/12/22 guaifenesin 600 mg tablet, 400 mg PO Q12 PRN Congestion 04/12/22 04/12/22 extended release 12 hr (Mucinex) nitrofurantoin monohyd/m-cryst 100 mg PO BID 04/12/22 04/12/22 Previous Rx's Medication Instructions Recorded ferrous sulfate 325 mg (65 mg 325 mg PO BID 30 days #60 tabs 12/16/21 iron) tablet levalbuterol HCl 1.25 mg/3 mL 1.25 mg (3 mL) NEB Q4H PRN 12/16/21 solution for nebulization shortness of breath or wheezing #36 mL fluticasone propionate 50 2 spray [place] Q24H #1 g 01/24/22 mcg/actuation nasal spray,suspension furosemide 20 mg tablet 40 mg PO DAILY #60 tabs 03/09/22 potassium chloride 10 mEq 20 meq PO DAILY #30 tabs 03/09/22 tablet,extended release(part/cryst) spironolactone 25 mg tablet 25 mg PO DAILY #30 tabs 03/09/22 Results & Data (ED) Vital Signs Vital Signs - 24 hr 04/12/22 12:25 04/12/22 12:33 04/12/22 12:37 Temperature 36.8 C Temperature Source Oral Pulse Rate 84 82 Pulse Rhythm Regular Pulse Strength Normal Respiratory Rate 21 Respiratory Effort / Characteristics Non-Labored Respiratory Depth Normal Respiratory Pattern Regular Blood Pressure 186/97 H Blood Pressure Mean 126 Pulse Oximetry 88 L 97 Oxygen Delivery Method Room Air Nasal Cannula Oxygen Flow Rate 2 Sepsis Recent Fever Within 48 Hours No Sepsis New/Unexplained Change in Mental Status No Sepsis Action Taken by Nursing No Action Required 04/12/22 13:00 04/12/22 14:00 04/12/22 14:30 Temperature Temperature Source Pulse Rate 80 80 79 Pulse Rhythm Pulse Strength Respiratory Rate 20 17 27 H Respiratory Effort / Characteristics Respiratory Depth Respiratory Pattern Blood Pressure 143/86 H 129/62 125/66 Blood Pressure Mean 105 84 85 Pulse Oximetry 100 100 Oxygen Delivery Method Nasal Cannula Nasal Cannula Oxygen Flow Rate 2 2 Sepsis Recent Fever Within 48 Hours Sepsis New/Unexplained Change in Mental Status Sepsis Action Taken by Care Home Medications Current Medication List: was personally reviewed by me Laboratory Data Attestation: I reviewed the patient's lab results. 04/12/22 12:40 04/12/22 12:40 Lab Results 04/12/22 04/12/22 04/12/22 Range/Units 12:40 12:40 12:40 WBC 10.88 H (4.8-10.8) K/ul RBC 4.40 (4.20-5.40) M/uL Hgb 12.4 (12.0-16.0) g/dl Hct 38.1 (37.0-47.0) % MCV 86.6 (80.0-100.0) fL MCH 28.2 (25.0-34.0) pg MCHC 32.5 (32.0-36.0) g/dL RDW Std Deviation 50.1 H (36.4-46.3) fL RDW Coeff of [place] 15.6 H (11.5-14.5) % Plt Count 313 (130-400) K/uL MPV 12.2 (9.4-12.4) fL Immature Gran % (Auto) 0.7 % Neut % (Auto) 87.5 % Lymph % (Auto) 5.2 % [place] % (Auto) 6.4 % Eos % (Auto) 0.1 % Baso % (Auto) 0.1 % Neut # (Auto) 9.51 H (1.40-6.50) K/uL Lymph # (Auto) 0.57 L (1.2-3.4) K/uL [place] # (Auto) 0.70 H (0.11-0.59) K/uL Eos # (Auto) 0.01 (0-0.50) K/uL Baso # (Auto) 0.01 (0-0.2) K/uL Immature Gran # (Auto) 0.08 (0.01-0.20) K/uL PT 11.1 (9.0-12.0) Seconds INR 1.0 (0.9-1.1) APTT 26.8 (21.0-31.0) Seconds PTT Ratio 1.0 Sodium 138 (136-145) mmol/L Potassium 3.9 (3.5-5.1) mmol/L Chloride 99 (98-107) mmol/L Carbon Dioxide 31 (21-32) mmol/L Anion Gap 8 (3-11) BUN 31 H (6-23) mg/dl Creatinine 0.76 (0.6-1.2) mg/dl Est Cr Clr Drug Dosing 38.3 ml/min Est GFR ( Amer) 80.6 ml/min Est GFR (Non-Af Amer) 69.5 ml/min BUN/Creatinine Ratio 40.8 H (10-20) Glucose 95 (70-99(Fasting)) mg/dl Calcium 9.3 (8.5-10.1) mg/dl Total Bilirubin 0.8 (0.2-1.0) mg/dl AST 38 (13-39) U/L ALT 24 (7-52) U/L Alkaline Phosphatase 100 (34-104) U/L Troponin I High Sens 19.6 H (0-14) pg/ml Total Protein 7.4 (6.0-8.3) gm/dl Albumin 3.6 (3.4-5.0) gm/dl Globulin 3.8 (2.5-4.0) gm/dl Albumin/Globulin Ratio 0.9 (0.9-2) Lipase 65 (11-82) U/L SARS-CoV-2, RNA, NAAT (NEGATIVE) 04/12/22 Range/Units 12:51 WBC (4.8-10.8) K/ul RBC (4.20-5.40) M/uL Hgb (12.0-16.0) g/dl Hct (37.0-47.0) % MCV (80.0-100.0) fL MCH (25.0-34.0) pg MCHC (32.0-36.0) g/dL RDW Std Deviation (36.4-46.3) fL RDW Coeff of [place] (11.5-14.5) % Plt Count (130-400) K/uL MPV (9.4-12.4) fL Immature Gran % (Auto) % Neut % (Auto) % Lymph % (Auto) % [place] % (Auto) % Eos % (Auto) % Baso % (Auto) % Neut # (Auto) (1.40-6.50) K/uL Lymph # (Auto) (1.2-3.4) K/uL [place] # (Auto) (0.11-0.59) K/uL Eos # (Auto) (0-0.50) K/uL Baso # (Auto) (0-0.2) K/uL Immature Gran # (Auto) (0.01-0.20) K/uL PT (9.0-12.0) Seconds INR (0.9-1.1) APTT (21.0-31.0) Seconds PTT Ratio Sodium (136-145) mmol/L Potassium (3.5-5.1) mmol/L Chloride (98-107) mmol/L Carbon Dioxide (21-32) mmol/L Anion Gap (3-11) BUN (6-23) mg/dl Creatinine (0.6-1.2) mg/dl Est Cr Clr Drug Dosing ml/min Est GFR ( Amer) ml/min Est GFR (Non-Af Amer) ml/min BUN/Creatinine Ratio (10-20) Glucose (70-99(Fasting)) mg/dl Calcium (8.5-10.1) mg/dl Total Bilirubin (0.2-1.0) mg/dl AST (13-39) U/L ALT (7-52) U/L Alkaline Phosphatase (34-104) U/L Troponin I High Sens (0-14) pg/ml Total Protein (6.0-8.3) gm/dl Albumin (3.4-5.0) gm/dl Globulin (2.5-4.0) gm/dl Albumin/Globulin Ratio (0.9-2) Lipase (11-82) U/L SARS-CoV-2, RNA, NAAT NEGATIVE (NEGATIVE) Administered Medications Discontinued Medications Fentanyl Citrate (Fentanyl Citrate 100 Mcg/2 Ml Vial) 50 mcg IV NOW STA Stop: 04/12/22 12:31 Last Admin: 04/12/22 12:38 Dose: 50 mcg Documented By: RASHID Ondansetron HCl (Ondansetron Inj 2 Mg/Ml 2 Ml Vial) 4 mg IV NOW STA Stop: 04/12/22 12:31 Last Admin: 04/12/22 12:39 Dose: 4 mg Documented By: RASHID Imaging Data Radiologist's Impression: Cervical Spine CT 04/12/22 12:30 CT cervical spine wo con CLINICAL HISTORY: fall TECHNIQUE: Multidetector row helical CT of the cervical spine was performed without administration of intravenous contrast. Coronal and sagittal reformations were obtained. Automated dose lowering techniques and/or adjustment according to patient size were utilized for this exam. Comparison: None available at the time of this dictation. FINDINGS: Numerous cystic changes are seen in the dens, however there is no evidence of acute fracture. Degenerative changes are seen in the visualized spine. Chondrocalcinosis is noted there is calcification of the transverse ligament. The alignment is normal. Biapical scarring is seen in the lungs. IMPRESSION: Degenerative changes without evidence of acute bony injury. ACT 112: Negative or not required by law. Electronically signed by: Rodríguez Villalta M.D. 04/12/2022 2:04 PM Chest X-Ray 04/12/22 12:30 XR chest 1V not portable CLINICAL HISTORY: Chest pain, nonspecific TECHNIQUE: Single frontal radiograph of the chest was obtained. Comparison: Comparison is made to chest radiograph 03/08/2022 FINDINGS: No lines and tubes are seen. The cardiomediastinal silhouette is normal. There is airspace opacity in the medial left lung. There is a small left pleural effusion, increased from prior. IMPRESSION: Small left pleural effusion, increased from prior exam. Left airspace opacity may represent atelectasis, pneumonia, and/or aspiration. ACT 112: Negative or not required by law. Electronically signed by: Rodríguez Villalta M.D. 04/12/2022 2:[address] 04/12/22 12:30 CT OF THE HEAD WITHOUT CONTRAST CLINICAL HISTORY: Fall. COMPARISON STUDY: Head CTA May 01, 2021 and MRI of the brain May 01, 2021. Head CT April 30, 2021. CT DOSE: 1060.23 mGy.cm TECHNIQUE: Helical axial images of the head were obtained without IV contrast. Automated exposure control was utilized for the study. A dose lowering technique was utilized adhering to the principles of ALARA. FINDINGS: No acute intracranial hemorrhage, midline shift or mass effect is present. White matter hypodensity suggests small vessel disease. 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 The ventricular system is unremarkable. The basal cisterns are patent. No extra-axial collections are present. There are no findings to suggest acute dural sinus thrombosis or acute territorial infarct. No significant calvarial abnormalities are present. Visua lized portions of the sinuses and mastoid air cells are clear. IMPRESSION: 1. No acute intracranial findings. 2. No acute calvarial fracture. ACT 112: Negative or not required by law. Electronically signed by: Kemal Elizabeth M.D. 04/12/2022 1:55 PM Hip/Pelvis X-Ray 04/12/22 12:30 XR hip RT 2V w pelvis CLINICAL HISTORY: Fall. COMPARISON: Pelvis radiographs September 08, [address] November 29, 2021. FINDINGS: Sacroiliac joints and symphysis pubis are intact. No is made of comminuted displaced right superior and inferior pubic rami fractures which are new since CT of November 29, 2021. These are likely acute. No proximal left femoral fracture is noted. Severe bilateral hip osteoarthritis is greater on the right. There is suspected impacted subcapital right femoral neck fracture. IMPRESSION: 1. Suspected acute impacted subcapital right femoral neck fracture. This can be assessed on the abdomen and pelvis CT which has been ordered. 2. Acute displaced comminuted right pubic rami fractures. 3. Severe bilateral hip osteoarthritis. ACT 112: Negative or not required by law. Electronically signed by: Kemal Elizabeth M.D. 04/12/2022 1:51 PM Abdomen/Pelvis CT 04/12/22 13:38 CT SCAN OF THE ABDOMEN AND PELVIS WITHOUT IV CONTRAST CLINICAL HISTORY: Fall. Pelvic fractures. COMPARISON STUDY: Abdominal CT dated 10/02/2021. Pelvic CT dated 11/29/2021. Radiographs of the right hip and pelvis dated 04/12/2022. TECHNIQUE: CT scan of the abdomen and pelvis is performed from the lung bases to the proximal femora. Images are reviewed in the axial, sagittal, and coronal planes. IV contrast was not administered for this examination as per the referring clinician. Note that the examination was performed in suboptimal fashion without IV contrast. The examination is degraded by motion artifact, as well as by streak artifact from the arms which could not be elevated above the abdomen or pelvis. A dose lowering technique was utilized adhering to the principles of ALARA. FINDINGS: Lung bases: The heart is mildly enlarged and without pericardial effusion. The mitral annulus is densely calcified. There are small right and moderate left pleural effusions with dependent scarring/atelectasis. There are scattered calcified granulomas. Liver: Evaluation of the liver is degraded by streak artifact. The unenhanced liver is normal in size, contour, and attenuation. There is no intrahepatic biliary ductal dilatation. A calcified granuloma is seen in the left lobe. Gallbladder: There are layering gallstones with no CT evidence of acute cholecystitis. Spleen: Normal in size and attenuation. There are numerous calcified splenic granulomas. Pancreas: Unremarkable. Adrenal glands: Unremarkable. Kidneys: The unenhanced kidneys are normal in size and without hydronephrosis. There are least 2 punctate nonobstructing right calculi. No left renal calculi are seen. There is no evidence of contour deforming renal mass lesion. Abdominal vasculature: The abdominal aorta is normal in course and caliber noting advanced atherosclerotic calcification. Bowel: There is mild to moderate colonic fecal retention. No bowel obstruction is seen. The appendix is not visualized. Peritoneum: There is no intraperitoneal free air or abdominal ascites. Lymphadenopathy: None. Pelvic viscera: The bladder is mildly distended but otherwise normal in appearance. The uterus is surgically absent. No adnexal lesion is seen. Skeletal structures: The skeletal structures are osteopenic. There is an impacted subcapital fracture of the right proximal femur with surrounding hemorrhage. There are comminuted fractures of the right superior and inferior pubic ring with surrounding hemorrhage. The inferior pubic ring fracture is displaced. There is a nondisplaced fracture of the right sacral ala. No lytic or blastic lesions are seen. There is a chronic sacral fracture the level of S4. There are chronic compression deformities of T11 and T12 with evidence of previous vertebroplasty. Retropulsed fragments are similar to previous. There are mild chronic superior endplate compression deformities of L4 and L5. Moderate lumbosacral spondylosis is observed. Soft tissues: The patient is cachectic. There is intramuscular hemorrhage within the right obturator internus and obturator externus muscles. IMPRESSION: 1. Significantly suboptimal examination without IV contrast. There is also streak and motion artifact. 2. Impacted fracture of the subcapital right femur. 3. Right superior and inferior pubic ring fractures with surrounding hemorrhage. 4. Nondisplaced fracture of the right sacral ala. 5. Intramuscular hemorrhage is seen within the right obturator internus and right obturator externus muscles. 6. There is no evidence of solid injury in the abdomen or pelvis on this unenhanced examination. 7. Small right and moderate left pleural effusions. 8. Cardiomegaly. 9. Cholelithiasis. 10. Right-sided nephrolithiasis. 11. Additional findings as above. ACT 112: Negative or not required by law. Electronically signed by: Ab Boston M.D. 04/12/2022 2:[address] 04/12/22 13:39 CT OF THE CHEST WITHOUT IV CONTRAST CLINICAL HISTORY: Fall. COMPARISON STUDY: Chest CT January 13, 2022 and chest radiograph performed earlier today. CT DOSE: 531.08 mGy.cm TECHNIQUE: Axial images of the chest were obtained without IV contrast. Images were reviewed in the axial, sagittal, and coronal planes. IV contrast was not a dministered for this examination. Automated exposure control was utilized for the study. A dose lowering technique was utilized adhering to the principles of ALARA. FINDINGS: Thoracic aorta is suboptimally assessed on this unenhanced exam but there is no mediastinal hematoma. Cardiomegaly is noted with extensive mitral annular calcification. There is no pericardial effusion. Moderate left and small right pleural effusions are similar to chest CT January 13, 2022. There is no pneumothorax. A 3.8 cm right upper lobe irregular density is unchanged. This favors post treatment change. There is interlobular septal thickening with mild groundglass opacities within the lungs. Subpleural ground glass opacities are also present. Nondisplaced fracture of the medial right scapula remains unchanged. 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 A moderate T8 compression fracture with 40% loss of vertebral body height and minimal retropulsion is new since prior chest CT. Old T12 compression fracture is noted. No acute rib fractures are present. Is no thoracic lymphadenopathy. IMPRESSION: 1. Moderate T8 compression fracture with minimal retropulsion. This is age indeterminate but new since CT of January 13, 2022 and likely subacute to acute. 2. No additional acute traumatic findings within the chest. 3. Evidence for pulmonary edema with moderate left and small right pleural effusions which are similar to prior chest CT. ACT 112: Negative or not required by law. Electronically signed by: Kemal Elizabeth M.D. 04/12/2022 2:14 PM Discharge Plan Visit Data Chief Complaint: Fall Stated Complaint: FALL, LEG INJURY ED Provider: Jamari Blue Discharge Problem: Closed fracture of right hip, Fall, Closed pelvic fracture, Pulmonary edema Patient Disposition: Being Evaluated by Hospitalist Forms Stand Alone Forms: [facility] Prescriptions Prescriptions: No Action aspirin 81 mg Tablet,Delayed Release (Dr/Ec) 81 mg PO QAM montelukast 10 mg tablet 10 mg PO HS Rx Instructions: TAKE 1 TABLET BY MOUTH EVERYDAY AT BEDTIME donepezil 5 mg Tablet 5 mg PO BID lorazepam 0.5 mg Tablet 0.5 mg PO TID Rx Instructions: TAKES AT 0630, 1500 & 2000. docusate sodium [Colace] 100 mg Capsule 100 mg PO BID amiodarone 200 mg tablet 200 mg PO QAM pantoprazole 40 mg tablet,delayed release (DR/EC) 40 mg PO BID metoprolol tartrate 25 mg tablet 12.5 mg PO BID acetaminophen [Tylenol] 325 mg Tablet 650 mg PO Q4H PRN (Reason: PAIN/FEVER) epinephrine [EpiPen] 0.3 mg/0.3 mL Auto-Injector 0.3 mg IM DIRECTED PRN (Reason: Allergic Reaction) lidocaine 5 % adhesive patch,medicated 1 patch transdermal QAM Rx Instructions: ON 12 HOURS, OFF 12 HOURS. levalbuterol HCl 1.25 mg/3 mL Solution For Nebulization 1.25 mg NEB Q4H PRN (Reason: shortness of breath or wheezing) Qty: 36 0RF ferrous sulfate 325 mg (65 mg iron) Tablet 325 mg PO BID 30 Days Qty: 60 0RF fluticasone propionate 50 mcg/actuation [place],Suspension 2 spray CLEMENT[place] Q24H Qty: 1 0RF sertraline 100 mg tablet 200 mg PO QAM spironolactone 25 mg Tablet 25 mg PO DAILY Qty: 30 1RF furosemide 20 mg Tablet 40 mg PO DAILY Qty: 60 0RF potassium chloride 10 mEq Tablet,Er Particles/Crystals 20 meq PO DAILY Qty: 30 0RF bupropion HCl 100 mg Tablet Sustained-Release 12 Hr 100 mg PO DAILY famotidine 20 mg Tablet 20 mg PO BID Rx Instructions: Take twice daily in AM and after dinner nitrofurantoin monohyd/m-cryst 100 mg 100 mg PO BID Rx Instructions: Take 1 capsule by mouth 2 times daily for seven days guaifenesin [Mucinex] 600 mg tablet extended release 12hr 400 mg PO Q12 PRN (Reason: Congestion) Referrals Referrals: [facility] [Non-Staff] -
[2022-04-12 13:13] LABS: Basophils # (auto) 0.01 K/uL (0-0.2); Basophils % (auto) 0.1 %; Eosinophils # (auto) 0.01 K/uL (0-0.50); Eosinophils % (auto) 0.1 %; Hematocrit (blood only) 38.1 % (37.0-47.0); Hemoglobin 12.4 g/dl (12.0-16.0); Immature Granulocytes # (auto) 0.08 K/uL (0.01-0.20); Immature Granulocytes % (auto) 0.7 %; Lymphocytes # (auto) 0.57 K/uL (1.2-3.4); Lymphocytes % (auto) 5.2 %; Mean Corpuscular Hemoglobin 28.2 pg (25.0-34.0); Mean Corpuscular Hgb Conc 32.5 g/dL (32.0-36.0); Mean Corpuscular Volume 86.6 fL (80.0-100.0); Mean Platelet Volume 12.2 fL (9.4-12.4); Monocytes % (auto) 6.4 %; Neutrophils # (auto) 9.51 K/uL (1.40-6.50); Neutrophils % (auto) 87.5 %; Platelet Count 313 K/uL (130-400); RDW Coefficient of Variation 15.6 % (11.5-14.5); RDW Standard Deviation 50.1 fL (36.4-46.3); White Blood Count 10.88 K/ul (4.8-10.8)
[2022-04-12 13:34] LABS: Albumin Globulin Ratio 0.9 (0.9-2); Albumin Level 3.6 gm/dl (3.4-5.0); BUN Creatinine Ratio 40.8 (10-20); Bilirubin,Total 0.8 mg/dl (0.2-1.0); Calcium 9.3 mg/dl (8.5-10.1); Creatinine Clr Calc Pharmacy 38.3 ml/min; Est GFR (African American) 80.6 ml/min; Est GFR (Non-African American) 69.5 ml/min; Globulin 3.8 gm/dl (2.5-4.0); Potassium 3.9 mmol/L (3.5-5.1); Total Protein 7.4 gm/dl (6.0-8.3)
[2022-04-12 13:40] LABS: Troponin I High Sensitivity 19.6 pg/ml (0-14)
[2022-04-12 13:44] LABS: Partial Thromboplastin Time 26.8 Seconds (21.0-31.0); Prothrombin Time 11.1 Seconds (9.0-12.0)
--- NOTE | 2022-04-12 13:53 | XRay Report ---
XR hip RT 2V w pelvis CLINICAL HISTORY: Fall. COMPARISON: Pelvis radiographs September 08, [address] November 29, 2021. FINDINGS: Sacroiliac joints and symphysis pubis are intact. No is made of comminuted displaced right superior and inferior pubic rami fractures which are new since CT of November 29, 2021. These are like ly acute. No proximal left femoral fracture is noted. Severe bilateral hip osteoarthritis is greater on the right. There is suspected impacted subcapital right femoral neck fracture. IMPRESSION: 1. Suspected acute impacted subcapital right femoral neck fracture. This can be assessed on the abdom en and pelvis CT which has been ordered. 2. Acute displaced comminuted right pubic rami fractures. 3. Severe bilateral hip osteoarthritis. ACT 112: Negative or not required by law. Electronically signed by: Kemal Elizabeth M.D. 04/12/2022 1:51 PM
--- NOTE | 2022-04-12 13:57 | CT Scan Report ---
CT OF THE HEAD WITHOUT CONTRAST CLINICAL HISTORY: Fall. COMPARISON STUDY: Head CTA May 01, 2021 and MRI of the brain May 01, 2021. Head CT April 30, 2021. CT DOSE: 1060.23 mGy.cm TECHNIQUE: Helical axial images of the head were obtained without IV contrast. Automated exposure con trol was utilized for the study. A dose lowering technique was utilized adhering to the principles o f ALARA. FINDINGS: No acute intracranial hemorrhage, midline shift or mass effect is present. White matter hyp odensity suggests small vessel disease. 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 The ventricular system is unremarkable. The basal cisterns are patent. No extra-axial collections are pr esent. There are no findings to suggest acute dural sinus thrombosis or acute territorial infarct. No significant calvarial abnormalities are present. Visualized portions of the sinuses and mastoid air cells are clear. IMPRESSION: 1. No acute intracranial findings. 2. No acute calvarial fracture. ACT 112: Negative or not required by law. Electronically signed by: Kemal Elizabeth M.D. 04/12/2022 1:55 PM
--- NOTE | 2022-04-12 14:03 | XRay Report ---
XR chest 1V not portable CLINICAL HISTORY: Chest pain, nonspecific TECHNIQUE: Single frontal radiograph of the chest was obtained. Comparison: Comparison is made to chest radiograph 03/08/2022 FINDINGS: No lines and tubes are seen. The cardiomediastinal silhouette is normal. There is airspace opacity in the medial left lung. There is a small left pleural effusion, increased from prior. IMPRESSION: Small left pleural effusion, increased from prior exam. Left airspace opacity may represent atelectas is, pneumonia, and/or aspiration. ACT 112: Negative or not required by law. Electronically signed by: Rodríguez Villalta M.D. 04/12/2022 2:01 PM
--- NOTE | 2022-04-12 14:05 | CT Scan Report ---
CT cervical spine wo con CLINICAL HISTORY: fall TECHNIQUE: Multidetector row helical CT of the cervical spine was performed without administration of intravenous contrast. Coronal and sagittal reformations were obtained. Automated dose lowering techn iques and/or adjustment according to patient size were utilized for this exam. Comparison: None available at the time of this dictation. FINDINGS: Numerous cystic changes are seen in the dens, however there is no evidence of acute fracture. Degener ative changes are seen in the visualized spine. Chondrocalcinosis is noted there is calcification of the transverse ligament. The alignment is normal. Biapical scarring is seen in the lungs. IMPRESSION: Degenerative changes without evidence of acute bony injury. ACT 112: Negative or not required by law. Electronically signed by: Rodríguez Villalta M.D. 04/12/2022 2:04 PM
--- NOTE | 2022-04-12 14:14 | CT Scan Report ---
CT SCAN OF THE ABDOMEN AND PELVIS WITHOUT IV CONTRAST CLINICAL HISTORY: Fall. Pelvic fractures. COMPARISON STUDY: Abdominal CT dated 10/02/2021. Pelvic CT dated 11/29/2021. Radiographs of the right h ip and pelvis dated 04/12/2022. TECHNIQUE: CT scan of the abdomen and pelvis is performed from the lung bases to the proximal femora. Images are reviewed in the axial, sagittal, and coronal planes. IV contrast was not administered for this examination as per the referring clinician. Note that the examination was performed in suboptim al fashion without IV contrast. The examination is degraded by motion artifact, as well as by streak artifact from the arms which could not be elevated above the abdomen or pelvis. A dose lowering techn ique was utilized adhering to the principles of ALARA. FINDINGS: Lung bases: The heart is mildly enlarged and without pericardial effusion. The mitral annulus is dens sj calcified. There are small right and moderate left pleural effusions with dependent scarring/atel ectasis. There are scattered calcified granulomas. Liver: Evaluation of the liver is degraded by streak artifact. The unenhanced liver is normal in size , contour, and attenuation. There is no intrahepatic biliary ductal dilatation. A calcified granuloma is seen in the left lobe. Gallbladder: There are layering gallstones with no CT evidence of acute cholecystitis. Spleen: Normal in size and attenuation. There are numerous calcified splenic granulomas. Pancreas: Unremarkable. Adrenal glands: Unremarkable. Kidneys: The unenhanced kidneys are normal in size and without hydronephrosis. There are least 2 punc riggs nonobstructing right calculi. No left renal calculi are seen. There is no evidence of contour de forming renal mass lesion. Abdominal vasculature: The abdominal aorta is normal in course and caliber noting advanced atheroscle rotic calcification. Bowel: There is mild to moderate colonic fecal retention. No bowel obstruction is seen. The appendix is not visualized. Peritoneum: There is no intraperitoneal free air or abdominal ascites. Lymphadenopathy: None. Pelvic viscera: The bladder is mildly distended but otherwise normal in appearance. The uterus is alejandro gically absent. No adnexal lesion is seen. Skeletal structures: The skeletal structures are osteopenic. There is an impacted subcapital fracture of the right proximal femur with surrounding hemorrhage. There are comminuted fractures of the right superior and inferior pubic ring with surrounding hemorrhage. The inferior pubic ring fracture is di splaced. There is a nondisplaced fracture of the right sacral ala. No lytic or blastic lesions are se en. There is a chronic sacral fracture the level of S4. There are chronic compression deformities of T11 and T12 with evidence of previous vertebroplasty. Retropulsed fragments are similar to previous. There are mild chronic superior endplate compression deformities of L4 and L5. Moderate lumbosacral s pondylosis is observed. Soft tissues: The patient is cachectic. There is intramuscular hemorrhage within the right obturator internus and obturator externus muscles. IMPRESSION: 1. Significantly suboptimal examination without IV contrast. There is also streak and motion artifact . 2. Impacted fracture of the subcapital right femur. 3. Right superior and inferior pubic ring fractures with surrounding hemorrhage. 4. Nondisplaced fracture of the right sacral ala. 5. Intramuscular hemorrhage is seen within the right obturator internus and right obturator externus muscles. 6. There is no evidence of solid injury in the abdomen or pelvis on this unenhanced examination. 7. Small right and moderate left pleural effusions. 8. Cardiomegaly. 9. Cholelithiasis. 10. Right-sided nephrolithiasis. 11. Additional findings as above. ACT 112: Negative or not required by law. Electronically signed by: Ab Boston M.D. 04/12/2022 2:13 PM
--- NOTE | 2022-04-12 14:15 | CT Scan Report ---
CT OF THE CHEST WITHOUT IV CONTRAST CLINICAL HISTORY: Fall. COMPARISON STUDY: Chest CT January 13, 2022 and chest radiograph performed earlier today. CT DOSE: 531.08 mGy.cm TECHNIQUE: Axial images of the chest were obtained without IV contrast. Images were reviewed in the axial, sagittal, and coronal planes. IV contrast was not administered for this examination. Automat ed exposure control was utilized for the study. A dose lowering technique was utilized adhering to t he principles of ALARA. FINDINGS: Thoracic aorta is suboptimally assessed on this unenhanced exam but there is no mediastina l hematoma. Cardiomegaly is noted with extensive mitral annular calcification. There is no pericardia l effusion. Moderate left and small right pleural effusions are similar to chest CT January 13, 2022 . There is no pneumothorax. A 3.8 cm right upper lobe irregular density is unchanged. This favors pos t treatment change. There is interlobular septal thickening with mild groundglass opacities within th e lungs. Subpleural ground glass opacities are also present. Nondisplaced fracture of the medial righ t scapula remains unchanged. 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 A moderate T8 compression fracture with 40% loss of vertebral body height and minimal retropulsion is new since prior chest CT. Old T12 compression fracture is noted. No acute rib fractures are prese nt. Is no thoracic lymphadenopathy. IMPRESSION: 1. Moderate T8 compression fracture with minimal retropulsion. This is age indeterminate but new sinc e CT of January 13, 2022 and likely subacute to acute. 2. No additional acute traumatic findings within the chest. 3. Evidence for pulmonary edema with moderate left and small right pleural effusions which are simila r to prior chest CT. ACT 112: Negative or not required by law. Electronically signed by: Kemal Elizabeth M.D. 04/12/2022 2:14 PM
--- NOTE | 2022-04-12 15:18 | History & Physical Report ---
Date of Service April 12, 2022 Assessment & Plan (1) Fall: (2) Closed fracture of right hip: (3) Closed pelvic fracture: Plan: - Admit to med surg with tele - Hip fracture order set completed -Imaging reviewed personally, and with family and the patient at bedside showing the R Impacted fracture of the subcapital right femur, Right superior and inferior pubic ring fractures with surrounding hemorrhage, ondisplaced fracture of the right sacral ala, and Intramuscular hemorrhage is seen within the right obturator internus and right obturator externus muscles. - Subacute to acute T8 compression fracture with minimal retropulsion - may require bracing such as TSLO - Pt is not on blood thinners - will hold baby aspirin - Start on ancef preoperatively, pt was on outpatient Bactrim for UTI x 5 days - Maintain garcia catheter for now and remove as soon as possible - Pain control, bowel regimen ordered - PT/OT consults - CM consulted for therapy placement afterwards since currently in [facility] (4) PAF (paroxysmal atrial fibrillation): Plan: - Currently rate controlled with HR in 80s at bedside, - not on blood thinner due to fall risk - EKG reviewed - Continue amiodarone and metoprolol for rate control (5) (HFpEF) heart failure with preserved ejection fraction: Plan: -History of such, CT of the chest evaluated personally, shows bilateral pleural effusions: moderate left and small right, appears similar to previous - Will continue lasix, spironolactone (6) Asthma-COPD overlap syndrome: Plan: - Denies current respiratory symptoms, continue prn inhalers DVT ppx: Teds, scds CODE: DNR/DNI Dispo: From [facility], likely to remain in the hospital x 2 nights and then require inpatient PT/OT A total of 78 minutes were spent with greater than 50% of that time face to face with the patient, personally reviewing all current laboratories, imaging studies, past medication reconciliation, outpatient chart review, and discussion with specialists to collaborate care for the patient with attending. Please see attending documentation for corrections and/or additions. History of Present Illness Chief Complaint: Fall Primary Care Provider: Bear Rodriguez MD This is an 89 yo F with PMHx including left breast cancer s/p left radical mastectomy, radiation pneumonitis, concerning right upper lobe lesion for possible carcinoma s/p empiric radiation, asthmaCOPD, HTN, HFpEF, Senile Degeneration of the Brain, pAF, and anemia of chronic disease. She has had many inpatient hospitalizations: 06/24 to 06/29/2021, 07/06-07/09 for SOB and secondary to acute HFpEF, underwent thoracentesis on right at 800 mL in 06/2021 and it was transudative and negative for malignancy. 11/12/21 - 11/18/21 for acute on chronic CHF also with testing positive for COVID- 19 for which she completed an inpatient course of steroids and Remdesivir. 11/29/21- status post fall 01/12-01/24 for pneumonia Her son Han, and [id number] Willian, are present with her at bedside. She is able to support her own history. Due to senile degeneration of the brain is a poor historian but is able to communicate and participate in her goals of care. She reports that she has good control on her pain currently, denies any numbness, sharp radicular pain, only whenever she moves her leg. This occurred this morning at [facility] while she was ambulating to the bathroom with her walker. Patient denies any presyncopal symptoms including lightheadedness, dizziness etc. she denies any shortness of breath or chest pain. Patient does not wear any supplemental O2 at baseline however here in the ER is on 2L via [place]. Patient denies any recent respiratory symptoms. Of note she has been being treated with Bactrim for the past 5 days for UTI, she denies any urinary symptoms today. Pt family notes that they would like to proceed with surgery if she is a candidate as she was able to walk herself prior to this. Pt herself notes she wants to maintain her mobility if possible. Pt notes she has been able to walk from her room to the dining facility and feels tired after doing so, but is able to. Pt notes recent weight loss and is drinking boost once daily. This morning she ate breakfast and took all her scheduled medications as directed. Allergies Allergy/AdvReac Type Severity Reaction Status Date / Time bee venom protein (honey bee) Allergy Severe ANAPHYLAXIS Verified 12/14/21 01:31 Home Medications Medication Instructions Recorded Confirmed Type aspirin 81 mg tablet,delayed 81 mg PO QAM 04/30/21 04/12/22 History release montelukast 10 mg tablet 10 mg PO HS 04/30/21 04/12/22 History docusate sodium 100 mg capsule 100 mg PO BID 06/24/21 04/12/22 History (Colace) donepezil 5 mg tablet 5 mg PO BID 06/24/21 04/12/22 History lorazepam 0.5 mg tablet 0.5 mg PO TID 06/24/21 04/12/22 History sertraline 100 mg tablet 200 mg PO QAM 07/06/21 04/12/22 History amiodarone 200 mg tablet 200 mg PO QAM 10/02/21 04/12/22 History metoprolol tartrate 25 mg tablet 12.5 mg PO BID 10/02/21 04/12/22 History pantoprazole 40 mg tablet,delayed 40 mg PO BID 10/02/21 04/12/22 History release acetaminophen 325 mg tablet 650 mg PO Q4H PRN PAIN/FEVER 12/14/21 04/12/22 History (Tylenol) epinephrine 0.3 mg/0.3 mL 0.3 mg IM DIRECTED PRN Allergic 12/14/21 04/12/22 History injection, auto-injector (EpiPen) Reaction lidocaine 5 % topical patch 1 patch transdermal QAM 12/14/21 04/12/22 History ferrous sulfate 325 mg (65 mg 325 mg PO BID 30 days #60 tabs 12/16/21 04/12/22 Rx iron) tablet levalbuterol HCl 1.25 mg/3 mL 1.25 mg (3 mL) NEB Q4H PRN 12/16/21 04/12/22 Rx solution for nebulization shortness of breath or wheezing #36 mL fluticasone propionate 50 2 spray CLEMENTINA Q24H #1 g 01/24/22 04/12/22 Rx mcg/actuation nasal spray,suspension furosemide 20 mg tablet 40 mg PO DAILY #60 tabs 03/09/22 04/12/22 Rx potassium chloride 10 mEq 20 meq PO DAILY #30 tabs 03/09/22 04/12/22 Rx tablet,extended release(part/cryst) spironolactone 25 mg tablet 25 mg PO DAILY #30 tabs 03/09/22 04/12/22 Rx bupropion HCl 100 mg tablet,12 hr 100 mg PO DAILY 04/12/22 04/12/22 History sustained-release famotidine 20 mg tablet 20 mg PO BID 04/12/22 04/12/22 History guaifenesin 600 mg tablet, 400 mg PO Q12 PRN Congestion 04/12/22 04/12/22 History extended release 12 hr (Mucinex) nitrofurantoin monohyd/m-cryst 100 mg PO BID 04/12/22 04/12/22 History Past Med/Surg History Medical History (HFpEF) heart failure with preserved ejection fraction Abnormal CT of the chest Acute on chronic heart failure with preserved ejection fraction Anemia of chronic disease Anxiety Anxiety Asthma USING RESCUE INHALER FREQUENTLY/DAILY Asthma-COPD overlap syndrome Cancer BREAST CANCER-LEFT MASTECTOMY Chronic obstructive pulmonary disease COPD (chronic obstructive pulmonary disease) COVID-19 Deep vein thrombosis 15 YEARS AGO S/P LEG SURGERY Degenerative disc disease Dysphagia HX ESOPHAGEAL STRETCHING Fall GERD (gastroesophageal reflux disease) History of pulmonary embolism HTN (hypertension) Hypertension Osteoarthritis PAF (paroxysmal atrial fibrillation) PAF (paroxysmal atrial fibrillation) Prolapsed bladder Pulmonary nodule, right Rectal bleeding Senile degeneration of brain T12 burst fracture Surgical History History of cataract surgery RT/LEFT History of colonoscopy History of esophagogastroduodenoscopy (EGD) History of mastectomy LEFT (NO BP/LAB DRAWS) History of tonsillectomy History of tooth extraction History of total hysterectomy with bilateral salpingo-oophorectomy (BSO) History of total knee replacement LEFT/RT Family History Other Alzheimer disease Stroke Social History Smoking Status: Never smoker Second Hand Exposure: Yes (AT WORK); Hx Alcohol Use: No Hx Substance Use: No Preferred Language: Eritrean Communication Ability: Effective 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 Beliefs That Will Affect Care: None marital status: / Current Living Situation: Personal Care Facility Current Living Situation Comment: [facility] How many Children do You have: 1 Feels Safe at Home: Yes Safety Concerns: Feels Safe At This Time Childhood Exposure to Second-Hand Smoke: Yes Dental Care, Regularly: Yes Assistive Devices: Hearing Aid - Bilateral, Hospital Bed, Oxygen - Continuous and Walker Review of Systems Review of Systems: Constitutional: No fever, sweats or chills Eyes: No diplopia, no worsening or blurred vision ENT: normal hearing, no trouble swallowing Respiratory: No cough, sputum, dyspnea at rest or on exertion Cardiovascular: No chest pain, tightness or palpitations Abdomen: No pain, nausea, vomiting, diarrhea or constipation Musculoskeletal: R hip pain is well controlled presently, No other joint pain, calf pain, swelling Neurologic: No weakness, numbness/tingling, or balance problems Psychiatric: No anxiety or depression Skin: No rash or itch Physical Exam Physical Exam: General: awake, alert, no apparent distress, + thin, + frail Head: Normocephalic, atraumatic ENT: PERRL, EOMI, no pharyngeal exudate, mucous membranes slightly dry Chest: Diminished breath sounds at bases bilaterally, clear to auscultation otherwise, on room air, no adventitious breath sounds Cardiac: irregularly irregular, + systolic murmur, no JVD, normal peripheral pulses, good capillary refill Abdominal: NABS x 4 quadrants, soft, nondistended, nontender to palpation, no rebound or guarding Extremities: Generalized muscle atrophy in upper extremities, R leg with multiple areas of abrasions on the right lateral lower leg, trace edema in BLE around ankles, R olecranon with skin tear, otherwise normal inspection, no peripheral edema or erythema, calfs nontender to palpation Psych: Normal mood and affect Neuro: AAO x 3, strength intact bilaterally and rated 4/5, no motor deficits, speech is clear, no peripheral sensory deficits Results & Data Results & Data ([facility]) Vital Signs (Past 12 Hours) Vital Signs Temp Pulse Resp BP Pulse Ox O2 Del Method O2 Flow Rate 04/12/22 14:30 79 27 H 125/66 04/12/22 14:00 80 17 129/62 100 Nasal Cannula 2 04/12/22 13:00 80 20 143/86 H 100 Nasal Cannula 2 04/12/22 12:37 82 04/12/22 12:33 97 Nasal Cannula 2 04/12/22 12:25 36.8 C 84 21 186/97 H 88 L Room Air Laboratory Results 04/12/22 04/12/22 04/12/22 12:51 12:40 12:40 WBC RBC Hgb Hct MCV MCH MCHC RDW Std Deviation RDW Coeff of [place] Plt Count MPV Immature Gran % (Auto) Neut % (Auto) Lymph % (Auto) [place] % (Auto) Eos % (Auto) Baso % (Auto) Neut # (Auto) Lymph # (Auto) [place] # (Auto) Eos # (Auto) Baso # (Auto) Immature Gran # (Auto) PT 11.1 INR 1.0 APTT 26.8 PTT Ratio 1.0 Sodium 138 Potassium 3.9 Chloride 99 Carbon Dioxide 31 Anion Gap 8 BUN 31 H Creatinine 0.76 Est Cr Clr Drug Dosing 38.3 Est GFR ( Amer) 80.6 Est GFR (Non-Af Amer) 69.5 BUN/Creatinine Ratio 40.8 H Glucose 95 Calcium 9.3 Total Bilirubin 0.8 AST 38 ALT 24 Alkaline Phosphatase 100 Troponin I High Sens 19.6 H Total Protein 7.4 Albumin 3.6 Globulin 3.8 Albumin/Globulin Ratio 0.9 Lipase 65 SARS-CoV-2, RNA, NAAT NEGATIVE 04/12/22 12:40 WBC 10.88 H RBC 4.40 Hgb 12.4 Hct 38.1 MCV 86.6 MCH 28.2 MCHC 32.5 RDW Std Deviation 50.1 H RDW Coeff of [place] 15.6 H Plt Count 313 MPV 12.2 Immature Gran % (Auto) 0.7 Neut % (Auto) 87.5 Lymph % (Auto) 5.2 [place] % (Auto) 6.4 Eos % (Auto) 0.1 Baso % (Auto) 0.1 Neut # (Auto) 9.51 H Lymph # (Auto) 0.57 L [place] # (Auto) 0.70 H Eos # (Auto) 0.01 Baso # (Auto) 0.01 Immature Gran # (Auto) 0.08 PT INR APTT PTT Ratio Sodium Potassium Chloride Carbon Dioxide Anion Gap BUN Creatinine Est Cr Clr Drug Dosing Est GFR ( Amer) Est GFR (Non-Af Amer) BUN/Creatinine Ratio Glucose Calcium Total Bilirubin AST ALT Alkaline Phosphatase Troponin I High Sens Total Protein Albumin Globulin Albumin/Globulin Ratio Lipase SARS-CoV-2, RNA, NAAT Diagnostic Findings Cervical Spine CT 04/12/22 12:30 CT cervical spine wo con CLINICAL HISTORY: fall TECHNIQUE: Multidetector row helical CT of the cervical spine was performed without administration of intravenous contrast. Coronal and sagittal reformations were obtained. Automated dose lowering techniques and/or adjustment according to patient size were utilized for this exam. Comparison: None available at the time of this dictation. FINDINGS: Numerous cystic changes are seen in the dens, however there is no evidence of acute fracture. Degenerative changes are seen in the visualized spine. Chondrocalcinosis is noted there is calcification of the transverse ligament. The alignment is normal. Biapical scarring is seen in the lungs. IMPRESSION: Degenerative changes without evidence of acute bony injury. ACT 112: Negative or not required by law. Electronically signed by: Rodríguez Villalta M.D. 04/12/2022 2:04 PM Chest X-Ray 04/12/22 12:30 XR chest 1V not portable CLINICAL HISTORY: Chest pain, nonspecific TECHNIQUE: Single frontal radiograph of the chest was obtained. Comparison: Comparison is made to chest radiograph 03/08/2022 FINDINGS: No lines and tubes are seen. The cardiomediastinal silhouette is normal. There is airspace opacity in the medial left lung. There is a small left pleural effusion, increased from prior. IMPRESSION: Small left pleural effusion, increased from prior exam. Left airspace opacity may represent atelectasis, pneumonia, and/or aspiration. ACT 112: Negative or not required by law. Electronically signed by: Rodríguez Villalta M.D. 04/12/2022 2:[address] 04/12/22 12:30 CT OF THE HEAD WITHOUT CONTRAST CLINICAL HISTORY: Fall. COMPARISON STUDY: Head CTA May 01, 2021 and MRI of the brain May 01, 2021. Head CT April 30, 2021. CT DOSE: 1060.23 mGy.cm TECHNIQUE: Helical axial images of the head were obtained without IV contrast. Automated exposure control was utilized for the study. A dose lowering technique was utilized adhering to the principles of ALARA. FINDINGS: No acute intracranial hemorrhage, midline shift or mass effect is present. White matter hypodensity suggests small vessel disease. 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 The ventricular system is unremarkable. The basal cisterns are patent. No extra-axial collections are present. There are no findings to suggest acute dural sinus thrombosis or acute territorial infarct. No significant calvarial abnormalities are present. Visualized portions of the sinuses and mastoid air cells are clear. IMPRESSION: 1. No acute intracranial findings. 2. No acute calvarial fracture. ACT 112: Negative or not required by law. Electronically signed by: Kemal Elizabeth M.D. 04/12/2022 1:55 PM Hip/Pelvis X-Ray 04/12/22 12:30 XR hip RT 2V w pelvis CLINICAL HISTORY: Fall. COMPARISON: Pelvis radiographs September 08, [address] November 29, 2021. FINDINGS: Sacroiliac joints and symphysis pubis are intact. No is made of comminuted displaced right superior and inferior pubic rami fractures which are new since CT of November 29, 2021. These are likely acute. No proximal left femoral fracture is noted. Severe bilateral hip osteoarthritis is greater on the right. There is suspected impacted subcapital right femoral neck fracture. IMPRESSION: 1. Suspected acute impacted subcapital right femoral neck fracture. This can be assessed on the abdomen and pelvis CT which has been ordered. 2. Acute displaced comminuted right pubic rami fractures. 3. Severe bilateral hip osteoarthritis. ACT 112: Negative or not required by law. Electronically signed by: Kemal Elizabeth M.D. 04/12/2022 1:51 PM Abdomen/Pelvis CT 04/12/22 13:38 CT SCAN OF THE ABDOMEN AND PELVIS WITHOUT IV CONTRAST CLINICAL HISTORY: Fall. Pelvic fractures. COMPARISON STUDY: Abdominal CT dated 10/02/2021. Pelvic CT dated 11/29/2021. R adiographs of the right hip and pelvis dated 04/12/2022. TECHNIQUE: CT scan of the abdomen and pelvis is performed from the lung bases to the proximal femora. Images are reviewed in the axial, sagittal, and coronal planes. IV contrast was not administered for this examination as per the referring clinician. Note that the examination was performed in suboptimal fashion without IV contrast. The examination is degraded by motion artifact, as well as by streak artifact from the arms which could not be elevated above the abdomen or pelvis. A dose lowering technique was utilized adhering to the emani bhat of KASSANDRA. FINDINGS: Lung bases: The heart is mildly enlarged and without pericardial effusion. The mitral annulus is densely calcified. There are small right and moderate left pleural effusions with dependent scarring/atelectasis. There are scattered calcified granulomas. Liver: Evaluation of the liver is degraded by streak artifact. The unenhanced liver is normal in size, contour, and attenuation. There is no intrahepatic biliary ductal dilatation. A calcified granuloma is seen in the left lobe. Gallbladder: There are layering gallstones with no CT evidence of acute cholecystitis. Spleen: Normal in size and attenuation. There are numerous calcified splenic granulomas. Pancreas: Unremarkable. Adrenal glands: Unremarkable. Kidneys: The unenhanced kidneys are normal in size and without hydronephrosis. There are least 2 punctate nonobstructing right calculi. No left renal calculi are seen. There is no evidence of contour deforming renal mass lesion. Abdominal vasculature: The abdominal aorta is normal in course and caliber noting advanced atherosclerotic calcification. Bowel: There is mild to moderate colonic fecal retention. No bowel obstruction is seen. The appendix is not visualized. Peritoneum: There is no intraperitoneal free air or abdominal ascites. Lymphadenopathy: None. Pelvic viscera: The bladder is mildly distended but otherwise normal in appearance. The uterus is surgically absent. No adnexal lesion is seen. Skeletal structures: The skeletal structures are osteopenic. There is an impacted subcapital fracture of the right proximal femur with surrounding hemorrhage. There are comminuted fractures of the right superior and inferior pubic ring with surrounding hemorrhage. The inferior pubic ring fracture is displaced. There is a nondisplaced fracture of the right sacral ala. No lytic or blastic lesions are seen. There is a chronic sacral fracture the level of S4. There are chronic compression deformities of T11 and T12 with evidence of previous vertebroplasty. Retropulsed fragments are similar to previous. There are mild chronic superior endplate compression deformities of L4 and L5. Moderate lumbosacral spondylosis is observed. Soft tissues: The patient is cachectic. There is intramuscular hemorrhage within the right obturator internus and obturator externus muscles. IMPRESSION: 1. Significantly suboptimal examination without IV contrast. There is also streak and motion artifact. 2. Impacted fracture of the subcapital right femur. 3. Right superior and inferior pubic ring fractures with surrounding hemorrhage. 4. Nondisplaced fracture of the right sacral ala. 5. Intramuscular hemorrhage is seen within the right obturator internus and right obturator externus muscles. 6. There is no evidence of solid injury in the abdomen or pelvis on this unenhanced examination. 7. Small right and moderate left pleural effusions. 8. Cardiomegaly. 9. Cholelithiasis. 10. Right-sided nephrolithiasis. 11. Additional findings as above. ACT 112: Negative or not required by law. Electronically signed by: Ab Boston M.D. 04/12/2022 2:[address] 04/12/22 13:39 CT OF THE CHEST WITHOUT IV CONTRAST CLINICAL HISTORY: Fall. COMPARISON STUDY: Chest CT January 13, 2022 and chest radiograph performed earlier today. CT DOSE: 531.08 mGy.cm TECHNIQUE: Axial images of the chest were obtained without IV contrast. Images were reviewed in the axial, sagittal, and coronal planes. IV contrast was not administered for this examination. Automated exposure control was utilized for the study. A dose lowering technique was utilized adhering to the principles of ALARA. FINDINGS: Thoracic aorta is suboptimally assessed on this unenhanced exam but there is no mediastinal hematoma. Cardiomegaly is noted with extensive mitral annular calcification. There is no pericardial effusion. Moderate left and small right pleural effusions are similar to chest CT January 13, 2022. There is no pneumothorax. A 3.8 cm right upper lobe irregular density is unchanged. This favors post treatment change. There is interlobular septal thickening with mild groundglass opacities within the lungs. Subpleural ground glass opacities are also present. Nondisplaced fracture of the medial right scapula remains unchanged. 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 A moderate T8 compression fracture with 40% loss of vertebral body height and minimal retropulsion is new since prior chest CT. Old T12 compression fracture is noted. No acute rib fractures are present. Is no thoracic lymphadenopathy. IMPRESSION: 1. Moderate T8 compression fracture with minimal retropulsion. This is age indeterminate but new since CT of January 13, 2022 and likely subacute to acute. 2. No additional acute traumatic findings within the chest. 3. Evidence for pulmonary edema with moderate left and small right pleural effusions which are similar to prior chest CT. ACT 112: Negative or not required by law. Electronically signed by: Kemal Elizabeth M.D. 04/12/2022 2:14 PM ECG Additional Comments: 12-APR-2022 12:22:33 [facility]-EDSTAT ROUTINE RETRIEVAL Poor data quality, interpretation may be adversely affected Atrial flutter with variable A-V block Abnormal ECG When compared with ECG of 07-MAR-2022 09:53, Atrial flutter has replaced Sinus rhythm Right bundle branch block is no longer Present 25mm/s10mm/[id number] 241CID: [id number] by: REFERRED SELF Unconfirmed Vent. rate 83 BPM PA interval * ms QRS duration 92 ms QT/QTc 380/446 ms Code Status & VTE Plan Code Status DNR/DNI - discussed with the patient at bedside Supervising Physician Co-Signing Physician Notes his is an 89 yo F with PMHx including left breast cancer s/p left radical mastectomy, radiation pneumonitis, concerning right upper lobe lesion for possible carcinoma s/p empiric radiation, asthmaCOPD, HTN, HFpEF, Senile Degeneration of the Brain, pAF, and anemia of chronic disease with multiple admission in the past present to the ER after a fall while she was ambulating to the bathroom with her walker. Imaging showed R Impacted fracture of the subcapital right femur, Right superior and inferior pubic ring fractures with surrounding hemorrhage, nondisplaced fracture of the right sacral ala, and Intramuscular hemorrhage is seen within the right obturator internus and right obturator externus muscles. Ortho consulted plan to take to OR in am. Due to her comorbidities will consult cardio for preop clearance. Continue pain control. NPO after midnight. Consider spine ortho consult for the Subacute to acute T8 compression fracture with minimal retropulsion if develops any back pain. MD Gideon (1) Fall Encounter type: initial encounter Qualified Code(s): W19.XXXA - Unspecified fall, initial encounter (2) Closed fracture of right hip Encounter type: initial encounter Qualified Code(s): S72.001A - Fracture of unspecified part of neck of right femur, initial encounter for closed fracture (3) Closed pelvic fracture Encounter type: initial encounter Fracture alignment: without disruption of pelvic ring Pelvic bone location: multiple parts Qualified Code(s): S32.82XA - Multiple fractures of pelvis without disruption of pelvic ring, initial encounter for closed fracture
--- NOTE | 2022-04-12 17:19 | Orthopedic Consultation ---
Date of Consultation April 12, 2022 Assessment & Plan (1) Closed fracture of right hip: The patient was educated regarding today's findings. Conservative care measures were discussed. She would prefer to have surgical intervention if possible. She will require medical clearance given her multiple chronic medical comorbidities. There is certainly significant surgical risk given her comorbidities, age, and frailness. She does not require any intervention at this time for her T8 compression fracture or the sacral fracture. Pubic rami fractures do not require any surgical intervention at this point. Her son and daughter-in law are present for today's discussion. They are also in agreement to proceed if she would desire surgical intervention. Options will be discussed with Dr. Dudley. Surgical fixation will be performed by either Dr. Dudley or Dr. Winslow tomorrow depending on room availability and scheduling. She will be NPO after midnight. Present on Admission?: Yes (2) Closed pelvic fracture: Conservative treatment. Will be allowed WBAT with walker after femoral neck fracture addressed. Present on Admission?: Yes (3) Closed sacral fracture: Conservative treatment. Will be allowed WBAT with walker after femoral neck fracture addressed. Present on Admission?: Yes (4) Compression fracture of T8 vertebra: Conservative treatment. Present on Admission?: Yes Supervising Physician Co-Signing Physician Notes I, Dr. Dudley, saw and examined the patient and discussed the management with my PA. I reviewed my PAs note and agree with the documented findings and the plan of care I developed. The patient is a 89 year old female who sustained a Traumatic Osteoporotic fracture of right femoral neck in setting of ground level fall. After orthopedic consult discussing the patients treatment options of conservative versus surgical intervention, the patient and family agreed for a planned hemiarthroplasty. Since the patient was ambulatory prior to the injury and to avoid the risks of bed sores, pulmonary complications, and to give the patient the best chance for ambulation, I recommended surgery. The patient understands the risks of surgery, which include but are not limited to: bleeding, infection, re-operation, damage to nerves and arteries, continued pain, failure of the hardware, fracture, dislocation, DVT, SD, stroke, and . In addition the patient and family are aware of the 20-30% morbidity associated with hip fracture for up to 1 year following a hip fracture. The patient and family understands all of these instructions and explanations, all of their questions have been satisfactorily addressed. The patient has elected to proceed with surgery. The patient has a Her in place. Continue pain control. NPO with fluids after midnight. The patient will be admitted to the Hospitalist service. The patient has been placed on the add-on list for tomorrow as she has not been cleared by cardiology yet. Will plan to proceed with surgery tomorrow if medically cleared with Dr. Winslow or myself depending on OR availability. History of Present Illness Reason for Consultation: Right subcapital hip fracture. Right pubic rami fracture Requesting Physician: Mirza Attending Physician: Dr. Dudley or Dr. Winslow History of Present Illness This 89-year-old female with history of COPD, CHF, paroxysmal atrial fibrillation, asthma, breast cancer, radiation pneumonitis, and anemia, is seen today in room A12 for orthopedic consultation regarding a right hip fracture and right pubic rami fracture. Patient was at her residence at [facility], and was attempting to walk to the bathroom. She forgot her walker and lost her balance. She fell onto her right side. There was immediate onset of pain. She was transported to the ED where imaging showed the acute pubic rami fracture on the right as well as the right subcapital femoral neck fracture. She denies any other areas of discomfort. She denies striking her head or loss of conscious. There was no dizziness or lightheadedness prior to the fall. No numbness or tingling. No prior history of significant hip or pelvic injury. She is currently on Bactrim for a UTI. Allergies Allergy/AdvReac Type Severity Reaction Status Date / Time bee venom protein (honey bee) Allergy Severe ANAPHYLAXIS Verified 12/14/21 01:31 Home Medications Medication Instructions Recorded Confirmed Type aspirin 81 mg tablet,delayed 81 mg PO QAM 04/30/21 04/12/22 History release montelukast 10 mg tablet 10 mg PO HS 04/30/21 04/12/22 History docusate sodium 100 mg capsule 100 mg PO BID 06/24/21 04/12/22 History (Colace) donepezil 5 mg tablet 5 mg PO BID 06/24/21 04/12/22 History lorazepam 0.5 mg tablet 0.5 mg PO TID 06/24/21 04/12/22 History sertraline 100 mg tablet 200 mg PO QAM 07/06/21 04/12/22 History amiodarone 200 mg tablet 200 mg PO QAM 10/02/21 04/12/22 History metoprolol tartrate 25 mg tablet 12.5 mg PO BID 10/02/21 04/12/22 History pantoprazole 40 mg tablet,delayed 40 mg PO BID 10/02/21 04/12/22 History release acetaminophen 325 mg tablet 650 mg PO Q4H PRN PAIN/FEVER 12/14/21 04/12/22 History (Tylenol) epinephrine 0.3 mg/0.3 mL 0.3 mg IM DIRECTED PRN Allergic 12/14/21 04/12/22 History injection, auto-injector (EpiPen) Reaction lidocaine 5 % topical patch 1 patch transdermal QAM 12/14/21 04/12/22 History ferrous sulfate 325 mg (65 mg 325 mg PO BID 30 days #60 tabs 12/16/21 04/12/22 Rx iron) tablet levalbuterol HCl 1.25 mg/3 mL 1.25 mg (3 mL) NEB Q4H PRN 12/16/21 04/12/22 Rx solution for nebulization shortness of breath or wheezing #36 mL fluticasone propionate 50 2 spray CLEMENTINA Q24H #1 g 01/24/22 04/12/22 Rx mcg/actuation nasal spray,suspension furosemide 20 mg tablet 40 mg PO DAILY #60 tabs 03/09/22 04/12/22 Rx potassium chloride 10 mEq 20 meq PO DAILY #30 tabs 03/09/22 04/12/22 Rx tablet,extended release(part/cryst) spironolactone 25 mg tablet 25 mg PO DAILY #30 tabs 03/09/22 04/12/22 Rx bupropion HCl 100 mg tablet,12 hr 100 mg PO DAILY 04/12/22 04/12/22 History sustained-release famotidine 20 mg tablet 20 mg PO BID 04/12/22 04/12/22 History guaifenesin 600 mg tablet, 400 mg PO Q12 PRN Congestion 04/12/22 04/12/22 History extended release 12 hr (Mucinex) nitrofurantoin monohyd/m-cryst 100 mg PO BID 04/12/22 04/12/22 History Patient History Medical History (HFpEF) heart failure with preserved ejection fraction Abnormal CT of the chest Acute on chronic heart failure with preserved ejection fraction Anemia of chronic disease Anxiety Anxiety Asthma USING RESCUE INHALER FREQUENTLY/DAILY Asthma-COPD overlap syndrome Cancer BREAST CANCER-LEFT MASTECTOMY Chronic obstructive pulmonary disease COPD (chronic obstructive pulmonary disease) COVID-19 Deep vein thrombosis 15 YEARS AGO S/P LEG SURGERY Degenerative disc disease Dysphagia HX ESOPHAGEAL STRETCHING Fall GERD (gastroesophageal reflux disease) History of pulmonary embolism HTN (hypertension) Hypertension Osteoarthritis PAF (paroxysmal atrial fibrillation) PAF (paroxysmal atrial fibrillation) Prolapsed bladder Pulmonary nodule, right Rectal bleeding Senile degeneration of brain T12 burst fracture Surgical History History of cataract surgery RT/LEFT History of colonoscopy History of esophagogastroduodenoscopy (EGD) History of mastectomy LEFT (NO BP/LAB DRAWS) History of tonsillectomy History of tooth extraction History of total hysterectomy with bilateral salpingo-oophorectomy (BSO) History of total knee replacement LEFT/RT Family History Other Alzheimer disease Stroke Social History Smoking Status: Never smoker Second Hand Exposure: Yes (AT WORK); Hx Alcohol Use: No Hx Substance Use: No Preferred Language: Omani Communication Ability: Effective Family Preservation Officer Required: No Beliefs That Will Affect Care: None marital status: / Current Living Situation: Personal Care Facility Current Living Situation Comment: [facility] How many Children do You have: 1 Feels Safe at Home: Yes Safety Concerns: Feels Safe At This Time Childhood Exposure to Second-Hand Smoke: Yes Dental Care, Regularly: Yes Assistive Devices: Hearing Aid - Bilateral, Hospital Bed, Oxygen - Continuous and Walker Review of Systems Review of Systems: Unobtainable due to cognitive status Physical Exam Physical Exam: General: Frail, elderly white female, in no acute distress. States she is currently comfortable as long as she does not move. Alert and conversive. Oriented to place and and time. Wearing O2 by nasal cannula. Skin: Warm and dry with fair turgor. No rashes. No ecchymosis or edema around the right hip. She does have peripheral edema in her feet. No open wounds. HEENT: Normocephalic, atraumatic. Eyes PERRLA, EOMI. Oropharynx without erythema or exudate. No lesions noted. Uvula midline. Fair dentition. Heart: Heart RRR. No MGR. Peripheral pulses are 2+. Lungs: Lungs are clear to auscultation. No crackles rhonchi or wheezing. Fair air movement. Prolonged exhalation. The patient is able to take a deep breath. Abdomen: Abdomen was inspected, auscultated, and palpated. Bowel sounds present x 4. Soft, nontender to palpation. No hepato-splenomegaly. No masses noted. No rebound. Musculoskeletal: Patient has her right leg flexed at the hip and knee. She has discomfort with palpation over the lateral right hip. No pain with palpation over the thigh, knee, lower leg, or ankle. She has intact motor function of the ankle and toes. Range of motion of the hip was not attempted due to known fracture. She has intact motor function of the left leg. No pain with motion of the upper extremities at the shoulders, elbows, wrist, or digits. Neurologic: Gross sensation is intact across both lower extremities by soft touch. Peripheral pulses are 2+ for both dorsalis pedis and posterior tibial. Results & Data ([facility]) Vital Signs (Past 12 Hours) Vital Signs Temp Pulse Resp BP Pulse Ox O2 Del Method O2 Flow Rate 04/12/22 14:30 79 27 H 125/66 04/12/22 14:00 80 17 129/62 100 Nasal Cannula 2 04/12/22 13:00 80 20 143/86 H 100 Nasal Cannula 2 04/12/22 12:37 82 04/12/22 12:33 97 Nasal Cannula 2 04/12/22 12:25 36.8 C 84 21 186/97 H 88 L Room Air Laboratory Results 04/13/22 04/13/22 04/12/22 Range/Units 05:47 05:47 18:18 WBC 10.24 (4.8-10.8) K/ul RBC 3.56 L (4.20-5.40) M/uL Hgb 10.1 L (12.0-16.0) g/dl Hct 30.4 L (37.0-47.0) % MCV 85.4 (80.0-100.0) fL MCH 28.4 (25.0-34.0) pg MCHC 33.2 (32.0-36.0) g/dL RDW Std Deviation 48.1 H (36.4-46.3) fL RDW Coeff of [place] 15.3 H (11.5-14.5) % Plt Count 236 (130-400) K/uL MPV 12.2 (9.4-12.4) fL Immature Gran % (Auto) % Neut % (Auto) % Lymph % (Auto) % [place] % (Auto) % Eos % (Auto) % Baso % (Auto) % Neut # (Auto) (1.40-6.50) K/uL Lymph # (Auto) (1.2-3.4) K/uL [place] # (Auto) (0.11-0.59) K/uL Eos # (Auto) (0-0.50) K/uL Baso # (Auto) (0-0.2) K/uL Immature Gran # (Auto) (0.01-0.20) K/uL PT (9.0-12.0) Seconds INR (0.9-1.1) APTT (21.0-31.0) Seconds PTT Ratio Sodium Pending (136-145) mmol/L Potassium Pending (3.5-5.1) mmol/L Chloride Pending (98-107) mmol/L Carbon Dioxide Pending (21-32) mmol/L Anion Gap Pending (3-11) BUN Pending (6-23) mg/dl Creatinine Pending (0.6-1.2) mg/dl Est Cr Clr Drug Dosing Pending ml/min Est GFR ( Amer) Pending ml/min Est GFR (Non-Af Amer) Pending ml/min BUN/Creatinine Ratio Pending (10-20) Glucose Pending (70-99(Fasting)) mg/dl Calcium Pending (8.5-10.1) mg/dl Phosphorus Pending Magnesium Pending Total Bilirubin (0.2-1.0) mg/dl AST (13-39) U/L ALT (7-52) U/L Alkaline Phosphatase (34-104) U/L Troponin I High Sens (0-14) pg/ml Total Protein (6.0-8.3) gm/dl Albumin (3.4-5.0) gm/dl Globulin (2.5-4.0) gm/dl Albumin/Globulin Ratio (0.9-2) Lipase (11-82) U/L SARS-CoV-2, RNA, NAAT (NEGATIVE) Blood Type A Positive Antibody Screen NEGATIVE 04/12/22 04/12/22 04/12/22 Range/Units 12:51 12:40 12:40 WBC (4.8-10.8) K/ul RBC (4.20-5.40) M/uL Hgb (12.0-16.0) g/dl Hct (37.0-47.0) % MCV (80.0-100.0) fL MCH (25.0-34.0) pg MCHC (32.0-36.0) g/dL RDW Std Deviation (36.4-46.3) fL RDW Coeff of [place] (11.5-14.5) % Plt Count (130-400) K/uL MPV (9.4-12.4) fL Immature Gran % (Auto) % Neut % (Auto) % Lymph % (Auto) % [place] % (Auto) % Eos % (Auto) % Baso % (Auto) % Neut # (Auto) (1.40-6.50) K/uL Lymph # (Auto) (1.2-3.4) K/uL [place] # (Auto) (0.11-0.59) K/uL Eos # (Auto) (0-0.50) K/uL Baso # (Auto) (0-0.2) K/uL Immature Gran # (Auto) (0.01-0.20) K/uL PT 11.1 (9.0-12.0) Seconds INR 1.0 (0.9-1.1) APTT 26.8 (21.0-31.0) Seconds PTT Ratio 1.0 Sodium 138 (136-145) mmol/L Potassium 3.9 (3.5-5.1) mmol/L Chloride 99 (98-107) mmol/L Carbon Dioxide 31 (21-32) mmol/L Anion Gap 8 (3-11) BUN 31 H (6-23) mg/dl Creatinine 0.76 (0.6-1.2) mg/dl Est Cr Clr Drug Dosing 38.3 ml/min Est GFR ( Amer) 80.6 ml/min Est GFR (Non-Af Amer) 69.5 ml/min BUN/Creatinine Ratio 40.8 H (10-20) Glucose 95 (70-99(Fasting)) mg/dl Calcium 9.3 (8.5-10.1) mg/dl Phosphorus Magnesium Total Bilirubin 0.8 (0.2-1.0) mg/dl AST 38 (13-39) U/L ALT 24 (7-52) U/L Alkaline Phosphatase 100 (34-104) U/L Troponin I High Sens 19.6 H (0-14) pg/ml Total Protein 7.4 (6.0-8.3) gm/dl Albumin 3.6 (3.4-5.0) gm/dl Globulin 3.8 (2.5-4.0) gm/dl Albumin/Globulin Ratio 0.9 (0.9-2) Lipase 65 (11-82) U/L SARS-CoV-2, RNA, NAAT NEGATIVE (NEGATIVE) Blood Type Antibody Screen 04/12/22 Range/Units 12:40 WBC 10.88 H (4.8-10.8) K/ul RBC 4.40 (4.20-5.40) M/uL Hgb 12.4 (12.0-16.0) g/dl Hct 38.1 (37.0-47.0) % MCV 86.6 (80.0-100.0) fL MCH 28.2 (25.0-34.0) pg MCHC 32.5 (32.0-36.0) g/dL RDW Std Deviation 50.1 H (36.4-46.3) fL RDW Coeff of [place] 15.6 H (11.5-14.5) % Plt Count 313 (130-400) K/uL MPV 12.2 (9.4-12.4) fL Immature Gran % (Auto) 0.7 % Neut % (Auto) 87.5 % Lymph % (Auto) 5.2 % [place] % (Auto) 6.4 % Eos % (Auto) 0.1 % Baso % (Auto) 0.1 % Neut # (Auto) 9.51 H (1.40-6.50) K/uL Lymph # (Auto) 0.57 L (1.2-3.4) K/uL [place] # (Auto) 0.70 H (0.11-0.59) K/uL Eos # (Auto) 0.01 (0-0.50) K/uL Baso # (Auto) 0.01 (0-0.2) K/uL Immature Gran # (Auto) 0.08 (0.01-0.20) K/uL PT (9.0-12.0) Seconds INR (0.9-1.1) APTT (21.0-31.0) Seconds PTT Ratio Sodium (136-145) mmol/L Potassium (3.5-5.1) mmol/L Chloride (98-107) mmol/L Carbon Dioxide (21-32) mmol/L Anion Gap (3-11) BUN (6-23) mg/dl Creatinine (0.6-1.2) mg/dl Est Cr Clr Drug Dosing ml/min Est GFR ( Amer) ml/min Est GFR (Non-Af Amer) ml/min BUN/Creatinine Ratio (10-20) Glucose (70-99(Fasting)) mg/dl Calcium (8.5-10.1) mg/dl Phosphorus Magnesium Total Bilirubin (0.2-1.0) mg/dl AST (13-39) U/L ALT (7-52) U/L Alkaline Phosphatase (34-104) U/L Troponin I High Sens (0-14) pg/ml Total Protein (6.0-8.3) gm/dl Albumin (3.4-5.0) gm/dl Globulin (2.5-4.0) gm/dl Albumin/Globulin Ratio (0.9-2) Lipase (11-82) U/L SARS-CoV-2, RNA, NAAT (NEGATIVE) Blood Type Antibody Screen Diagnostic Findings Pelvic films obtained today were read by radiology. She has an impacted subcapital right femoral neck fracture. There are also acute displaced comminuted right pubic rami fractures. CT scan imaging of the abdomen pelvis was also obtained. This also shows the impacted fracture of the right femal neck fracture. Superior and inferior pubic rami fractures are also noted. Nondisplaced fracture of the right sacral james. Chest CT obtained today shows moderate T8 compression fracture with minimal retropulsion. There were known compression fractures of T11 and T12 from December when the patient fell at that time. The T8 fracture is new since that time. Patient currently denies any back pain. (1) Closed fracture of right hip Encounter type: initial encounter Qualified Code(s): S72.001A - Fracture of unspecified part of neck of right femur, initial encounter for closed fracture (2) Closed pelvic fracture Encounter type: initial encounter Fracture alignment: without disruption of pelvic ring Pelvic bone location: multiple parts Qualified Code(s): S32.82XA - Multiple fractures of pelvis without disruption of pelvic ring, initial encounter for closed fracture
[2022-04-12] MEDS ORDERED: MoRPHine SULFATE 2 MG/ML CARP IV PRN ×2 (18:08→18:12)
[2022-04-12] MEDS ORDERED: NALOXONE HCL 0.4 MG/1 ML VIAL/CARP IV PRN (18:08)
[2022-04-12] MEDS ORDERED: bisacodyL 10 MG SUPP PR PRN (18:08)
[2022-04-12] MEDS ORDERED: MAGNESIUM HYDROXIDE SUSP 30 ML UDC PO PRN (18:08)
[2022-04-12] MEDS ORDERED: LEVALBUTEROL HCL 1.25 MG/3 ML NEB NEB PRN (18:08)
[2022-04-12] MEDS: DOCUSATE SODIUM/SENNA 50/8.6MG TAB PO SCH (20:29)
[2022-04-12] MEDS: ACETAMINOPHEN 500 MG TAB PO SCH (20:29)
[2022-04-12] MEDS: LORazepam 0.5 MG TAB PO SCH (20:29)
[2022-04-12] MEDS: oxyCODONE HCL IR 5 MG TAB (IMMEDIATE RELEASE) PO PRN (20:30)
[2022-04-12] MEDS: FLUTICASONE PROPIONATE NA SPR 16 GM BTL NAE SCH (20:31)
[2022-04-12] MEDS: FERROUS SULFATE 325 MG TAB PO SCH (20:33)
[2022-04-12] MEDS: FAMOTIDINE 20 MG TAB PO SCH (20:34)
[2022-04-12] MEDS: DONEPEZIL HCL 5 MG TAB PO SCH (20:34)
[2022-04-12] MEDS: MONTELUKAST SODIUM 10 MG TABLET PO SCH (20:35)
[2022-04-12] MEDS: METOPROLOL TARTRATE 25 MG TAB PO SCH (20:35)
[2022-04-12] MEDS: PANTOprazole 40 MG TAB PO SCH (20:36)
[2022-04-12] MEDS ORDERED: DOCUSATE SODIUM 100 MG CAP PO SCH (21:00)
[2022-04-13] MEDS: ACETAMINOPHEN 500 MG TAB PO SCH ×3 (02:46→17:14)
[2022-04-13] MEDS: LORazepam 0.5 MG TAB PO SCH ×3 (05:23→21:14)
[2022-04-13] MEDS ORDERED: ROPIVACAINE 0.5% HCL/PF 150 MG, BUPIVACAINE 0.75% MPF 20 ML, EPINEPHrine 0.15 MG, Ketor... INFIL SCH (06:00)
[2022-04-13] MEDS ORDERED: ceFAZolin 2000MG 2,000 MG/15 ML SYR IV SCH (06:00)
[2022-04-13 06:19] LABS: Hematocrit (blood only) 30.4 % (37.0-47.0); Hemoglobin 10.1 g/dl (12.0-16.0); Mean Corpuscular Hemoglobin 28.4 pg (25.0-34.0); Mean Corpuscular Hgb Conc 33.2 g/dL (32.0-36.0); Mean Corpuscular Volume 85.4 fL (80.0-100.0); Mean Platelet Volume 12.2 fL (9.4-12.4); Platelet Count 236 K/uL (130-400); RDW Coefficient of Variation 15.3 % (11.5-14.5); RDW Standard Deviation 48.1 fL (36.4-46.3); Red Blood Count 3.56 M/uL (4.20-5.40); White Blood Count 10.24 K/ul (4.8-10.8)
--- NOTE | 2022-04-13 06:29 | History & Physical Bridge Note ---
Date of Service April 13, 2022 History & Physical Bridge Note I have examined the patient, reviewed the History & Physical and in the interval since the performance of the History & Physical I have noted the following changes of clinical significance: no changes noted
[2022-04-13 07:10] LABS: Calcium 8.4 mg/dl (8.5-10.1); Est GFR (African American) 79.3 ml/min; Est GFR (Non-African American) 68.5 ml/min; Magnesium 1.9 mg/dl (1.7-2.4); Phosphorus 3.7 mg/dl (2.5-4.9); Potassium 3.9 mmol/L (3.5-5.1)
--- NOTE | 2022-04-13 07:26 | Progress Notes ---
DATE OF SERVICE: 04/13/2022. The patient was seen and discussed hip fracture treatment with her. She states she wants to proceed with surgery. Exam reveals shortened, externally rotated right lower limb, is in significant pain with any type of movement. Neurovascular check, femoral sciatic nerve is grossly normal. Site identified and marked. Consent obtained. Risks include infection, bleeding, nerve and artery damage, leg instability, leg length inequality, and related to age and pathologic process from femur fracture. She states she understands and wishes to proceed. Arrangements today if possible. Job ID: [id number] [facility]
[2022-04-13] MEDS: PANTOprazole 40 MG TAB PO SCH ×2 (07:29→21:15)
[2022-04-13] MEDS: POTASSIUM CHLORIDE CRTAB 20 MEQ TABCR PO SCH (07:30)
[2022-04-13] MEDS: SERTRALINE HCL 100 MG TABLET PO SCH (07:30)
[2022-04-13] MEDS: FERROUS SULFATE 325 MG TAB PO SCH ×2 (07:30→21:15)
[2022-04-13] MEDS: METOPROLOL TARTRATE 25 MG TAB PO SCH ×2 (07:30→21:15)
[2022-04-13] MEDS: FAMOTIDINE 20 MG TAB PO SCH ×2 (07:31→21:15)
[2022-04-13] MEDS: buPROPion SR 100 MG TABCR PO SCH (07:31)
[2022-04-13] MEDS: FUROSEMIDE 40 MG TAB PO SCH (07:31)
[2022-04-13] MEDS: DONEPEZIL HCL 5 MG TAB PO SCH ×2 (07:31→21:15)
[2022-04-13] MEDS: DOCUSATE SODIUM/SENNA 50/8.6MG TAB PO SCH (07:31)
[2022-04-13] MEDS: FLUTICASONE PROPIONATE NA SPR 16 GM BTL NAE SCH (07:32)
[2022-04-13] MEDS: AMIODARONE 200 MG TAB PO SCH (07:32)
[2022-04-13] MEDS: LIDOCAINE 5% 1 PATCH TD SCH (07:32)
[2022-04-13] MEDS: SPIRONOLACTONE 25 MG TAB PO SCH (07:33)
--- NOTE | 2022-04-13 08:32 | Cardiology Consultation ---
Date of Consultation April 13, 2022 Assessment & Plan (1) Preop cardiovascular exam: (2) Closed fracture of right hip: (3) Fall: (4) Asthma-COPD overlap syndrome: (5) (HFpEF) heart failure with preserved ejection fraction: (6) HTN (hypertension): (7) History of pulmonary embolism: (8) Pulmonary hypertension: History of Present Illness Attending Physician: Ayaz Painter MD History of Present Illness Went to examine patient at 0925, already taken to the OR. Pt was not examined. Past cardiac history: 1.Paroxysmal atrial fibrillation, not on AC On amiodarone, started 05/2021- reduced to 200 mg daily on 07/07/2021 2. Hypertension 3. Dyslipidemia 4. Valvular heart disease: Mild mitral stenosis, moderate mitral regurgitation, mild TR 5. Severe pulmonary HTN 6. History of pulmonary embolism status post knee surgery 7. Asthma/COPD 8. Osteoarthritis 9. Polyneuropathy 10. History of left breast cancer, status post left radical mastectomy 11. History of radiation pneumonitis 12. H/o right upper lobe lesion with possible carcinoma, status post empiric radiation 13. Anemia 14. Chronic dysphagia /esophageal dysmotility Allergies Allergy/AdvReac Type Severity Reaction Status Date / Time bee venom protein (honey bee) Allergy Severe ANAPHYLAXIS Verified 12/14/21 01:31 Home Medications Medication Instructions Recorded Confirmed Type aspirin 81 mg tablet,delayed 81 mg PO QAM 04/30/21 04/12/22 History release montelukast 10 mg tablet 10 mg PO HS 04/30/21 04/12/22 History docusate sodium 100 mg capsule 100 mg PO BID 06/24/21 04/12/22 History (Colace) donepezil 5 mg tablet 5 mg PO BID 06/24/21 04/12/22 History lorazepam 0.5 mg tablet 0.5 mg PO TID 06/24/21 04/12/22 History sertraline 100 mg tablet 200 mg PO QAM 07/06/21 04/12/22 History amiodarone 200 mg tablet 200 mg PO QAM 10/02/21 04/12/22 History metoprolol tartrate 25 mg tablet 12.5 mg PO BID 10/02/21 04/12/22 History pantoprazole 40 mg tablet,delayed 40 mg PO BID 10/02/21 04/12/22 History release acetaminophen 325 mg tablet 650 mg PO Q4H PRN PAIN/FEVER 12/14/21 04/12/22 History (Tylenol) epinephrine 0.3 mg/0.3 mL 0.3 mg IM DIRECTED PRN Allergic 12/14/21 04/12/22 History injection, auto-injector (EpiPen) Reaction lidocaine 5 % topical patch 1 patch transdermal QAM 12/14/21 04/12/22 History ferrous sulfate 325 mg (65 mg 325 mg PO BID 30 days #60 tabs 12/16/21 04/12/22 Rx iron) tablet levalbuterol HCl 1.25 mg/3 mL 1.25 mg (3 mL) NEB Q4H PRN 12/16/21 04/12/22 Rx solution for nebulization shortness of breath or wheezing #36 mL fluticasone propionate 50 2 spray CLEMENT[place] Q24H #1 g 01/24/22 04/12/22 Rx mcg/actuation nasal spray,suspension furosemide 20 mg tablet 40 mg PO DAILY #60 tabs 03/09/22 04/12/22 Rx potassium chloride 10 mEq 20 meq PO DAILY #30 tabs 03/09/22 04/12/22 Rx tablet,extended release(part/cryst) spironolactone 25 mg tablet 25 mg PO DAILY #30 tabs 03/09/22 04/12/22 Rx bupropion HCl 100 mg tablet,12 hr 100 mg PO DAILY 04/12/22 04/12/22 History sustained-release famotidine 20 mg tablet 20 mg PO BID 04/12/22 04/12/22 History guaifenesin 600 mg tablet, 400 mg PO Q12 PRN Congestion 04/12/22 04/12/22 History extended release 12 hr (Mucinex) nitrofurantoin monohyd/m-cryst 100 mg PO BID 04/12/22 04/12/22 History Patient History Medical History (HFpEF) heart failure with preserved ejection fraction Abnormal CT of the chest Acute on chronic heart failure with preserved ejection fraction Anemia of chronic disease Anxiety Anxiety Asthma USING RESCUE INHALER FREQUENTLY/DAILY Asthma-COPD overlap syndrome Cancer BREAST CANCER-LEFT MASTECTOMY Chronic obstructive pulmonary disease COPD (chronic obstructive pulmonary disease) COVID-19 Deep vein thrombosis 15 YEARS AGO S/P LEG SURGERY Degenerative disc disease Dysphagia HX ESOPHAGEAL STRETCHING Fall GERD (gastroesophageal reflux disease) History of pulmonary embolism HTN (hypertension) Hypertension Osteoarthritis PAF (paroxysmal atrial fibrillation) PAF (paroxysmal atrial fibrillation) Prolapsed bladder Pulmonary nodule, right Rectal bleeding Senile degeneration of brain T12 burst fracture Surgical History History of cataract surgery RT/LEFT History of colonoscopy History of esophagogastroduodenoscopy (EGD) History of mastectomy LEFT (NO BP/LAB DRAWS) History of tonsillectomy History of tooth extraction History of total hysterectomy with bilateral salpingo-oophorectomy (BSO) History of total knee replacement LEFT/RT Family History Other Alzheimer disease Stroke Social History Smoking Status: Never smoker Second Hand Exposure: Yes (AT WORK); Hx Alcohol Use: No Hx Substance Use: No Preferred Language: Cymraes Communication Ability: Effective Hoop Coiler Required: No Beliefs That Will Affect Care: None marital status: / Current Living Situation: Personal Care Facility Current Living Situation Comment: [facility] How many Children do You have: 1 Feels Safe at Home: Yes Safety Concerns: Feels Safe At This Time Childhood Exposure to Second-Hand Smoke: Yes Dental Care, Regularly: Yes Assistive Devices: Hearing Aid - Bilateral, Hospital Bed, Oxygen - Continuous and Walker Results & Data ([facility]) Vital Signs (Past 12 Hours) Vital Signs Temp Pulse Pulse Resp BP Pulse Ox Pulse Ox 04/13/22 07:00 36.7 C 73 18 135/72 100 04/13/22 07:10 67 04/13/22 04:50 100 04/13/22 03:33 35.9 C L 69 18 151/76 H 100 04/13/22 01:23 100 04/12/22 23:24 36.5 C 82 16 136/70 99 04/12/22 22:10 77 04/12/22 20:29 77 04/12/22 22:22 04/12/22 22:08 100 O2 Del Method O2 Del Method O2 Flow Rate O2 Flow Rate 04/13/22 07:00 Nasal Cannula 2 02/15/23 07:10 04/13/22 04:50 Nasal Cannula 2 04/13/22 03:33 Nasal Cannula 2 04/13/22 01:23 Nasal Cannula 2 04/12/22 23:24 Nasal Cannula 2 04/12/22 22:10 04/12/22 20:29 04/12/22 22:22 Nasal Cannula 2 04/12/22 22:08 Nasal Cannula 2 (2) Closed fracture of right hip Encounter type: initial encounter Qualified Code(s): S72.001A - Fracture of unspecified part of neck of right femur, initial encounter for closed fracture (3) Fall Encounter type: initial encounter Qualified Code(s): W19.XXXA - Unspecified fall, initial encounter
--- NOTE | 2022-04-13 08:52 | Orthopedic Progress Note ---
Date of Service April 13, 2022 Assessment & Plan Admission and Anticipated Discharge Date Admission Date: April 12, 2022 Results & Data ([facility]) Vital Signs (Past 12 Hours) Vital Signs Temp Pulse Pulse Pulse Resp BP Pulse Ox 04/13/22 04:50 04/13/22 03:33 35.9 C L 69 18 151/76 H 100 04/13/22 01:23 04/12/22 23:24 36.5 C 82 16 136/70 99 04/12/22 22:10 77 04/12/22 20:29 77 04/12/22 22:22 04/12/22 20:00 36.5 C 80 18 139/68 100 04/12/22 22:08 04/12/22 19:35 86 14 92/71 L 98 Pulse Ox O2 Del Method O2 Del Method O2 Flow Rate O2 Flow Rate 04/13/22 04:50 100 Nasal Cannula 2 04/13/22 03:33 Nasal Cannula 2 04/13/22 01:23 100 Nasal Cannula 2 04/12/22 23:24 Nasal Cannula 2 04/12/22 22:10 04/12/22 20:29 04/12/22 22:22 Nasal Cannula 2 04/12/22 20:00 Nasal Cannula 2 04/12/22 22:08 100 Nasal Cannula 2 04/12/22 19:35 Room Air
[2022-04-13] MEDS ORDERED: SODIUM CHLORIDE 0.9% 250 ML IV PRN (09:47)
--- NOTE | 2022-04-13 10:10 | Hospitalist Progress Note ---
Date of Service April 13, 2022 Assessment & Plan (1) Fall: (2) Closed fracture of right hip: (3) Closed pelvic fracture: Plan: - med surg with tele -Imaging - R Impacted fracture of the subcapital right femur, Right superior and inferior pubic ring fractures with surrounding hemorrhage, ondisplaced fracture of the right sacral ala, and Intramuscular hemorrhage is seen within the right obturator internus and right obturator externus muscles. Pt now s/p surgical repair (04/13/2022) - Subacute to acute T8 compression fracture with minimal retropulsion - may require bracing such as TSLO, conservative treatment per ortho - Pt is not on blood thinners - will hold baby aspirin - anticoagulation - per orthopedics - Start on ancef preoperatively, pt was on outpatient Bactrim for UTI x 5 days UTI - U cultx positive for E.coli - will continue with Abx - Maintain Her catheter for now and remove as soon as possible - Pain control, bowel regimen ordered - PT/OT consults - CM consulted for therapy placement afterwards since currently in Pending sale to [facility] (4) PAF (paroxysmal atrial fibrillation): Plan: - Currently rate controlled with HR in 80s at bedside, - not on blood thinner due to fall risk - EKG reviewed - Continue amiodarone and metoprolol for rate control (5) (HFpEF) heart failure with preserved ejection fraction: Plan: -History of such, CT of the chest evaluated personally, shows bilateral pleural effusions: moderate left and small right, appears similar to previous - Will continue lasix, spironolactone as BP allows - cardiology consulted for pre-op eval - however pt taken to OR prior to be seen by cardiology - monitor I/O closely (6) Asthma-COPD overlap syndrome: Plan: - Denies current respiratory symptoms, continue prn inhalers - currently on 3 L after OR, try to wean off DVT ppx: Teds, scds CODE: DNR/DNI Dispo: From [facility], likely to remain in the hospital x 2 nights and then require inpatient PT/OT Admission and Anticipated Discharge Date Admission Date: April 12, 2022 Subjective Pt seen in follow up of R hip fx, UTI Currently out of OR, laying in bed, in no acute distress, however little confused from anesthesia Per RN patient was pulling on her IV site She is able to follow simple commands Denies chest pain or shortness of breath, however currently on supplemental oxygen Encouraged to use incentive parameter with 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 O2 Head: Normocephalic, atraumatic ENT: PERRL, EOMI, no pharyngeal exudate Chest: Diminished breath sounds at bases bilaterally, clear to auscultation otherwise Cardiac: irregularly irregular, + systolic murmur Abdominal: NABS x 4 quadrants, soft, nondistended, nontender to palpation Extremities: Generalized muscle atrophy in upper extremities, R leg with multiple areas of abrasions on the right lateral lower leg, trace edema in BLE around ankles, Surgical dressings applied to Right thigh, + ice pack applied Neuro: awake slightly confused after OR/anesthesia, but follows simple commands, moves extremities Results & Data Results & Data ([facility]) Vital Signs (Past 12 Hours) Vital Signs Temp Pulse Pulse Resp BP Pulse Ox Pulse Ox 04/13/22 09:31 97 04/13/22 09:16 36.5 C 71 22 133/63 92 04/13/22 09:14 04/13/22 07:00 36.7 C 73 18 135/72 100 04/13/22 07:10 67 04/13/22 04:50 100 04/13/22 03:33 35.9 C L 69 18 151/76 H 100 04/13/22 01:23 100 04/12/22 23:24 36.5 C 82 16 136/70 99 04/12/22 22:10 77 04/12/22 22:22 O2 Del Method O2 Del Method O2 Flow Rate O2 Flow Rate 04/13/22 09:31 Nasal Cannula 2 04/13/22 09:16 Room Air 04/13/22 09:14 Nasal Cannula 2 04/13/22 07:00 Nasal Cannula 2 04/13/22 07:10 04/13/22 04:50 Nasal Cannula 2 04/13/22 03:33 Nasal Cannula 2 04/13/22 01:23 Nasal Cannula 2 04/12/22 23:24 Nasal Cannula 2 04/12/22 22:10 04/12/22 22:22 Nasal Cannula 2 Laboratory Results 02/04/13/22 04/12/22 Range/Units 05:47 05:47 18:18 WBC 10.24 (4.8-10.8) K/ul RBC 3.56 L (4.20-5.40) M/uL Hgb 10.1 L (12.0-16.0) g/dl Hct 30.4 L (37.0-47.0) % MCV 85.4 (80.0-100.0) fL MCH 28.4 (25.0-34.0) pg MCHC 33.2 (32.0-36.0) g/dL RDW Std Deviation 48.1 H (36.4-46.3) fL RDW Coeff of [place] 15.3 H (11.5-14.5) % Plt Count 236 (130-400) K/uL MPV 12.2 (9.4-12.4) fL Immature Gran % (Auto) % Neut % (Auto) % Lymph % (Auto) % [place] % (Auto) % Eos % (Auto) % Baso % (Auto) % Neut # (Auto) (1.40-6.50) K/uL Lymph # (Auto) (1.2-3.4) K/uL [place] # (Auto) (0.11-0.59) K/uL Eos # (Auto) (0-0.50) K/uL Baso # (Auto) (0-0.2) K/uL Immature Gran # (Auto) (0.01-0.20) K/uL PT (9.0-12.0) Seconds INR (0.9-1.1) APTT (21.0-31.0) Seconds PTT Ratio Sodium 137 (136-145) mmol/L Potassium 3.9 (3.5-5.1) mmol/L Chloride 101 (98-107) mmol/L Carbon Dioxide 30 (21-32) mmol/L Anion Gap 6 (3-11) BUN 30 H (6-23) mg/dl Creatinine 0.77 (0.6-1.2) mg/dl Est Cr Clr Drug Dosing 34.0 ml/min Est GFR ( Amer) 79.3 ml/min Est GFR (Non-Af Amer) 68.5 ml/min BUN/Creatinine Ratio 39.0 H (10-20) Glucose 87 (70-99(Fasting)) mg/dl Calcium 8.4 L (8.5-10.1) mg/dl Phosphorus 3.7 (2.5-4.9) mg/dl Magnesium 1.9 (1.7-2.4) mg/dl Total Bilirubin (0.2-1.0) mg/dl AST (13-39) U/L ALT (7-52) U/L Alkaline Phosphatase (34-104) U/L Troponin I High Sens (0-14) pg/ml Total Protein (6.0-8.3) gm/dl Albumin (3.4-5.0) gm/dl Globulin (2.5-4.0) gm/dl Albumin/Globulin Ratio (0.9-2) Lipase (11-82) U/L SARS-CoV-2, RNA, NAAT (NEGATIVE) Blood Type A Positive Antibody Screen NEGATIVE 04/12/22 04/12/22 04/12/22 Range/Units 12:51 12:40 12:40 WBC (4.8-10.8) K/ul RBC (4.20-5.40) M/uL Hgb (12.0-16.0) g/dl Hct (37.0-47.0) % MCV (80.0-100.0) fL MCH (25.0-34.0) pg MCHC (32.0-36.0) g/dL RDW Std Deviation (36.4-46.3) fL RDW Coeff of [place] (11.5-14.5) % Plt Count (130-400) K/uL MPV (9.4-12.4) fL Immature Gran % (Auto) % Neut % (Auto) % Lymph % (Auto) % [place] % (Auto) % Eos % (Auto) % Baso % (Auto) % Neut # (Auto) (1.40-6.50) K/uL Lymph # (Auto) (1.2-3.4) K/uL [place] # (Auto) (0.11-0.59) K/uL Eos # (Auto) (0-0.50) K/uL Baso # (Auto) (0-0.2) K/uL Immature Gran # (Auto) (0.01-0.20) K/uL PT 11.1 (9.0-12.0) Seconds INR 1.0 (0.9-1.1) APTT 26.8 (21.0-31.0) Seconds PTT Ratio 1.0 Sodium 138 (136-145) mmol/L Potassium 3.9 (3.5-5.1) mmol/L Chloride 99 (98-107) mmol/L Carbon Dioxide 31 (21-32) mmol/L Anion Gap 8 (3-11) BUN 31 H (6-23) mg/dl Creatinine 0.76 (0.6-1.2) mg/dl Est Cr Clr Drug Dosing 38.3 ml/min Est GFR ( Amer) 80.6 ml/min Est GFR (Non-Af Amer) 69.5 ml/min BUN/Creatinine Ratio 40.8 H (10-20) Glucose 95 (70-99(Fasting)) mg/dl Calcium 9.3 (8.5-10.1) mg/dl Phosphorus (2.5-4.9) mg/dl Magnesium (1.7-2.4) mg/dl Total Bilirubin 0.8 (0.2-1.0) mg/dl AST 38 (13-39) U/L ALT 24 (7-52) U/L Alkaline Phosphatase 100 (34-104) U/L Troponin I High Sens 19.6 H (0-14) pg/ml Total Protein 7.4 (6.0-8.3) gm/dl Albumin 3.6 (3.4-5.0) gm/dl Globulin 3.8 (2.5-4.0) gm/dl Albumin/Globulin Ratio 0.9 (0.9-2) Lipase 65 (11-82) U/L SARS-CoV-2, RNA, NAAT NEGATIVE (NEGATIVE) Blood Type Antibody Screen 04/12/22 Range/Units 12:40 WBC 10.88 H (4.8-10.8) K/ul RBC 4.40 (4.20-5.40) M/uL Hgb 12.4 (12.0-16.0) g/dl Hct 38.1 (37.0-47.0) % MCV 86.6 (80.0-100.0) fL MCH 28.2 (25.0-34.0) pg MCHC 32.5 (32.0-36.0) g/dL RDW Std Deviation 50.1 H (36.4-46.3) fL RDW Coeff of [place] 15.6 H (11.5-14.5) % Plt Count 313 (130-400) K/uL MPV 12.2 (9.4-12.4) fL Immature Gran % (Auto) 0.7 % Neut % (Auto) 87.5 % Lymph % (Auto) 5.2 % [place] % (Auto) 6.4 % Eos % (Auto) 0.1 % Baso % (Auto) 0.1 % Neut # (Auto) 9.51 H (1.40-6.50) K/uL Lymph # (Auto) 0.57 L (1.2-3.4) K/uL [place] # (Auto) 0.70 H (0.11-0.59) K/uL Eos # (Auto) 0.01 (0-0.50) K/uL Baso # (Auto) 0.01 (0-0.2) K/uL Immature Gran # (Auto) 0.08 (0.01-0.20) K/uL PT (9.0-12.0) Seconds INR (0.9-1.1) APTT (21.0-31.0) Seconds PTT Ratio Sodium (136-145) mmol/L Potassium (3.5-5.1) mmol/L Chloride (98-107) mmol/L Carbon Dioxide (21-32) mmol/L Anion Gap (3-11) BUN (6-23) mg/dl Creatinine (0.6-1.2) mg/dl Est Cr Clr Drug Dosing ml/min Est GFR ( Amer) ml/min Est GFR (Non-Af Amer) ml/min BUN/Creatinine Ratio (10-20) Glucose (70-99(Fasting)) mg/dl Calcium (8.5-10.1) mg/dl Phosphorus (2.5-4.9) mg/dl Magnesium (1.7-2.4) mg/dl Total Bilirubin (0.2-1.0) mg/dl AST (13-39) U/L ALT (7-52) U/L Alkaline Phosphatase (34-104) U/L Troponin I High Sens (0-14) pg/ml Total Protein (6.0-8.3) gm/dl Albumin (3.4-5.0) gm/dl Globulin (2.5-4.0) gm/dl Albumin/Globulin Ratio (0.9-2) Lipase (11-82) U/L SARS-CoV-2, RNA, NAAT (NEGATIVE) Blood Type Antibody Screen Medications Administered Current Inpatient Medications Acetaminophen (Acetaminophen 500 Mg Tab) 1,000 mg PO Q8H MARILIA Stop: 05/12/22 18:07 Last Admin: 04/13/22 07:29 Dose: 1,000 mg Amiodarone HCl (Amiodarone 200 Mg Tab) 200 mg PO QAM MARILIA Stop: 05/13/22 08:59 Last Admin: 04/13/22 07:32 Dose: 200 mg Bisacodyl (Bisacodyl 10 Mg Supp) 10 mg NE DAILY PRN PRN Reason: Constipation Stop: 05/12/22 18:07 Bupropion HCl (Bupropion Sr 100 Mg Tabcr) 100 mg PO DAILY MARILIA Stop: 05/13/22 08:59 Last Admin: 04/13/22 07:31 Dose: 100 mg Donepezil HCl (Donepezil Hcl 5 Mg Tab) 5 mg PO BID MARILIA Stop: 05/12/22 20:59 Last Admin: 04/13/22 07:31 Dose: 5 mg Famotidine (Famotidine 20 Mg Tab) 20 mg PO BID MARILIA Stop: 05/12/22 20:59 Last Admin: 04/13/22 07:31 Dose: 20 mg Ferrous Sulfate (Ferrous Sulfate 325 Mg Tab) 325 mg PO BID MARILIA Stop: 05/12/22 20:59 Last Admin: 04/13/22 07:30 Dose: 325 mg Fluticasone Propionate (Fluticasone Propionate Na Spr 16 Gm Btl) 2 sprays CLEMENT[place] QAM MARILIA Stop: 05/12/22 18:07 Last Admin: 04/13/22 07:32 Dose: 2 sprays Furosemide (Furosemide 40 Mg Tab) 40 mg PO DAILY MARILIA Stop: 05/13/22 08:59 Last Admin: 04/13/22 07:31 Dose: 40 mg Cefazolin Sodium (Ancef 2000mg) 2,000 mg in 15 mls @ 3.75 mls/min IV PREOP MARILIA; Protocol Stop: 04/14/22 05:59 Sodium Chloride (Nss) 250 mls @ 15 mls/hr IV .[id number] PRN PRN Reason: For Transfusion Duration Stop: 04/13/22 19:47 Levalbuterol HCl (Levalbuterol Hcl 1.25 Mg/3 Ml Neb) 1.25 mg NEB Q4R PRN; Protocol PRN Reason: shortness of breath or wheezing Stop: 05/12/22 18:07 Lidocaine (Lidocaine 5% 1 Patch) 1 patch TD QAM [facility] Stop: 05/13/22 08:59 Last Admin: 04/13/22 07:32 Dose: Not Given Lorazepam (Lorazepam 0.5 Mg Tab) 0.5 mg PO 0630,1500,2000 [facility] Stop: 05/12/22 19:59 Last Admin: 04/13/22 05:23 Dose: Not Given Magnesium Hydroxide (Magnesium Hydroxide Susp 30 Ml Udc) 30 ml PO DAILY PRN PRN Reason: Constipation Stop: 05/12/22 18:07 Metoprolol Tartrate (Metoprolol Tartrate 25 Mg Tab) 12.5 mg PO BID [facility] Stop: 05/12/22 20:59 Last Admin: 04/13/22 07:30 Dose: 12.5 mg Miscellaneous (Remove Lidoderm Patch) 1 each N/A DAILY@2100 [facility] Stop: 05/13/22 20:59 Montelukast Sodium (Montelukast Sodium 10 Mg Tablet) 10 mg PO HS [facility] Stop: 05/12/22 20:59 Last Admin: 04/12/22 20:35 Dose: 10 mg Morphine Sulfate (Morphine Sulfate 2 Mg/Ml Carp) 2 mg IV Q4H PRN PRN Reason: Severe Pain Stop: 04/26/22 18:07 Naloxone HCl (Naloxone Hcl 0.4 Mg/1 Ml Vial/Carp) 0.1 mg IV UD PRN PRN Reason: Opiate Overdose Stop: 05/12/22 18:07 Oxycodone HCl (Oxycodone Hcl Ir 5 Mg Tab (Immediate Release)) 5 mg PO Q6H PRN PRN Reason: Moderate Pain Stop: 04/26/22 18:10 Last Admin: 04/12/22 20:30 Dose: 5 mg Pantoprazole Sodium (Pantoprazole 40 Mg Tab) 40 mg PO BID [facility] Stop: 05/12/22 20:59 Last Admin: 04/13/22 07:29 Dose: 40 mg Potassium Chloride (Potassium Chloride Crtab 20 Meq Tabcr) 20 meq PO DAILY MARILIA Stop: 05/13/22 08:59 Last Admin: 04/13/22 07:30 Dose: 20 meq Senna/Docusate Sodium (Docusate Sodium/Senna 50/8.6mg Tab) 2 tab PO HS MARILIA Stop: 05/12/22 20:59 Last Admin: 04/13/22 07:31 Dose: 2 tab Sertraline HCl (Sertraline Hcl 100 Mg Tablet) 200 mg PO QAM MARILIA Stop: 05/13/22 08:59 Last Admin: 04/13/22 07:30 Dose: 200 mg Spironolactone (Spironolactone 25 Mg Tab) 25 mg PO DAILY MARILIA Stop: 05/13/22 08:59 Last Admin: 04/13/22 07:33 Dose: 25 mg (1) Fall Encounter type: initial encounter Qualified Code(s): W19.XXXA - Unspecified fall, initial encounter (2) Closed fracture of right hip Encounter type: initial encounter Qualified Code(s): S72.001A - Fracture of unspecified part of neck of right femur, initial encounter for closed fracture (3) Closed pelvic fracture Encounter type: initial encounter Fracture alignment: without disruption of pelvic ring Pelvic bone location: multiple parts Qualified Code(s): S32.82XA - Multiple fractures of pelvis without disruption of pelvic ring, initial encounter for closed fracture
--- NOTE | 2022-04-13 10:22 | Anesthesiology Consultation ---
Date of Service April 13, 2022 Assessment & Plan Chart Review Chart Review: Acceptable Risk for Surgery and Patient NOT seen in Pre Admission Testing Consults Requested none ASA ASA4 Proposed Anesthesia Anesthesia Type: General Anesthesia Line Insertion: Arterial line Risk / Benefits Reviewed With: PT / POA / Parent / Guardian, Accepts Plan and Informed Consent Obtained History Surgery Operation Date: 04/13/22 09:40 Proposed Procedures p Right Hip Hemiarthroplasty - Louie Winslow MD Height/Weight Height: 5 ft 5 in Weight: 43.5 kg Allergies Allergy/AdvReac Type Severity Reaction Status Date / Time bee venom protein (honey bee) Allergy Severe ANAPHYLAXIS Verified 12/14/21 01:31 Medications Home Medications Medication Instructions Recorded Confirmed Last Taken aspirin 81 mg tablet,delayed 81 mg PO QAM 04/30/21 04/12/22 04/12/22 08:00 release 81 mg montelukast 10 mg tablet 10 mg PO HS 04/30/21 04/12/22 04/11/22 20:00 10 mg docusate sodium 100 mg capsule 100 mg PO BID 06/24/21 04/12/22 04/12/22 08:00 (Colace) 100 mg donepezil 5 mg tablet 5 mg PO BID 06/24/21 04/12/22 04/12/22 08:00 5 mg lorazepam 0.5 mg tablet 0.5 mg PO TID 06/24/21 04/12/22 04/12/22 08:00 0.5mg sertraline 100 mg tablet 200 mg PO QAM 07/06/21 04/12/22 04/12/22 08:00 200 mg amiodarone 200 mg tablet 200 mg PO QAM 10/02/21 04/12/22 04/12/22 08:00 200 mg metoprolol tartrate 25 mg tablet 12.5 mg PO BID 10/02/21 04/12/22 04/12/22 08:00 12.5mg pantoprazole 40 mg tablet,delayed 40 mg PO BID 10/02/21 04/12/22 04/12/22 08:00 release 40 mg acetaminophen 325 mg tablet 650 mg PO Q4H PRN PAIN/FEVER 12/14/21 04/12/22 Unknown (Tylenol) epinephrine 0.3 mg/0.3 mL 0.3 mg IM DIRECTED PRN Allergic 12/14/21 04/12/22 Unknown injection, auto-injector (EpiPen) Reaction lidocaine 5 % topical patch 1 patch transdermal QAM 12/14/21 04/12/22 04/12/22 08:00 ferrous sulfate 325 mg (65 mg 325 mg PO BID 30 days #60 tabs 12/16/21 04/12/22 04/12/22 08:00 iron) tablet 325 mg levalbuterol HCl 1.25 mg/3 mL 1.25 mg (3 mL) NEB Q4H PRN 12/16/21 04/12/22 Unknown solution for nebulization shortness of breath or wheezing #36 mL fluticasone propionate 50 2 spray CLEMENTINA Q24H #1 g 01/24/22 04/12/22 04/12/22 08:00 mcg/actuation nasal 2 spray spray,suspension furosemide 20 mg tablet 40 mg PO DAILY #60 tabs 03/09/22 04/12/22 04/12/22 08:00 40 mg potassium chloride 10 mEq 20 meq PO DAILY #30 tabs 03/09/22 04/12/22 04/12/22 08:00 tablet,extended release(part/cryst) 20 meq spironolactone 25 mg tablet 25 mg PO DAILY #30 tabs 03/09/22 04/12/22 04/12/22 08:00 25 mg bupropion HCl 100 mg tablet,12 hr 100 mg PO DAILY 04/12/22 04/12/22 04/12/22 08:00 sustained-release 100 mg famotidine 20 mg tablet 20 mg PO BID 04/12/22 04/12/22 04/12/22 08:00 20 mg guaifenesin 600 mg tablet, 400 mg PO Q12 PRN Congestion 04/12/22 04/12/22 Unknown extended release 12 hr (Mucinex) nitrofurantoin monohyd/m-cryst 100 mg PO BID 04/12/22 04/12/22 04/12/22 08:00 100 mg Active Medications Generic Name Dose Route Start Last Admin Trade Name Freq PRN Reason Stop Dose Admin Acetaminophen 1,000 mg 04/12/22 18:08 04/13/22 07:29 Acetaminophen 500 Mg Tab PO 05/12/22 18:07 1,000 mg Q8H MARILIA Administration Amiodarone HCl 200 mg 04/13/22 09:00 04/13/22 07:32 Amiodarone 200 Mg Tab PO 05/13/22 08:59 200 mg QAM MARILIA Administration Bupropion HCl 100 mg 04/13/22 09:00 04/13/22 07:31 Bupropion Sr 100 Mg Tabcr PO 05/13/22 08:59 100 mg DAILY MARILIA Administration Donepezil HCl 5 mg 04/12/22 21:00 04/13/22 07:31 Donepezil Hcl 5 Mg Tab PO 05/12/22 20:59 5 mg BID MARILIA Administration Famotidine 20 mg 04/12/22 21:00 04/13/22 07:31 Famotidine 20 Mg Tab PO 05/12/22 20:59 20 mg BID MARILIA Administration Ferrous Sulfate 325 mg 04/12/22 21:00 04/13/22 07:30 Ferrous Sulfate 325 Mg Tab PO 05/12/22 20:59 325 mg BID MARILIA Administration Fluticasone Propionate 2 sprays 04/12/22 18:08 04/13/22 07:32 Fluticasone Propionate Na Spr 16 Gm Btl CLEMENTINA 05/12/22 18:07 2 sprays QAM MARILIA Administration Furosemide 40 mg 04/13/22 09:00 04/13/22 07:31 Furosemide 40 Mg Tab PO 05/13/22 08:59 40 mg DAILY MARILIA Administration Lidocaine 1 patch 04/13/22 09:00 04/13/22 07:32 Lidocaine 5% 1 Patch TD 05/13/22 08:59 Not Given QAM MARILIA Lorazepam 0.5 mg 04/12/22 20:00 04/13/22 05:23 Lorazepam 0.5 Mg Tab PO 05/12/22 19:59 Not Given 0630,1500,2000 MARILIA Metoprolol Tartrate 12.5 mg 04/12/22 21:00 04/13/22 07:30 Metoprolol Tartrate 25 Mg Tab PO 05/12/22 20:59 12.5 mg BID MARILIA Administration Montelukast Sodium 10 mg 04/12/22 21:00 04/12/22 20:35 Montelukast Sodium 10 Mg Tablet PO 05/12/22 20:59 10 mg HS MARILIA Administration Oxycodone HCl 5 mg 04/12/22 18:11 04/12/22 20:30 Oxycodone Hcl Ir 5 Mg Tab (Immediate Release) PO 04/26/22 18:10 5 mg Q6H PRN Administration Moderate Pain Pantoprazole Sodium 40 mg 04/12/22 21:00 04/13/22 07:29 Pantoprazole 40 Mg Tab PO 05/12/22 20:59 40 mg BID MARILIA Administration Potassium Chloride 20 meq 04/13/22 09:00 04/13/22 07:30 Potassium Chloride Crtab 20 Meq Tabcr PO 05/13/22 08:59 20 meq DAILY MARILIA Administration Senna/Docusate Sodium 2 tab 04/12/22 21:00 04/13/22 07:31 Docusate Sodium/Senna 50/8.6mg Tab PO 05/12/22 20:59 2 tab HS MARILIA Administration Sertraline HCl 200 mg 04/13/22 09:00 04/13/22 07:30 Sertraline Hcl 100 Mg Tablet PO 05/13/22 08:59 200 mg QAM MARILIA Administration Spironolactone 25 mg 04/13/22 09:00 04/13/22 07:33 Spironolactone 25 Mg Tab PO 05/13/22 08:59 25 mg DAILY MARILIA Administration NPO Date Last Intake of Fluids: 04/12/22 Time Last Intake of Fluids: 21:00 Last Intake of Fluids Comment: sips with AM meds Date Last Intake of Solids: 04/12/22 Time Last Intake of Solids: 18:00 Past Medical History Medical History (HFpEF) heart failure with preserved ejection fraction Abnormal CT of the chest Acute on chronic heart failure with preserved ejection fraction Anemia of chronic disease Anxiety Anxiety Asthma USING RESCUE INHALER FREQUENTLY/DAILY Asthma-COPD overlap syndrome Cancer BREAST CANCER-LEFT MASTECTOMY Chronic obstructive pulmonary disease COPD (chronic obstructive pulmonary disease) COVID-19 Deep vein thrombosis 15 YEARS AGO S/P LEG SURGERY Degenerative disc disease Dysphagia HX ESOPHAGEAL STRETCHING Fall GERD (gastroesophageal reflux disease) History of pulmonary embolism HTN (hypertension) Hypertension Osteoarthritis PAF (paroxysmal atrial fibrillation) PAF (paroxysmal atrial fibrillation) Prolapsed bladder Pulmonary nodule, right Rectal bleeding Senile degeneration of brain T12 burst fracture Exercise / Class Metabolic Activity III < 4 Walking/Shop/Light housework Past Family History Family History Other Alzheimer disease Stroke Past Surgical History Surgical History History of cataract surgery RT/LEFT History of colonoscopy History of esophagogastroduodenoscopy (EGD) History of mastectomy LEFT (NO BP/LAB DRAWS) History of tonsillectomy History of tooth extraction History of total hysterectomy with bilateral salpingo-oophorectomy (BSO) History of total knee replacement LEFT/RT Past Anesthesia History No Hx of Anesthesia Complications and No Family Hx of Anesthesia Complications History of PONV No Hx of PONV and No Hx of Motion Sickness Social History Smoking Status: Never smoker Hx Alcohol Use: No Hx Substance Use: No substance use type: does not use Physical Exam Vital Signs Last Vital Signs Temp 36.5 C 04/13/22 09:16 Pulse 71 04/13/22 09:16 Resp 22 04/13/22 09:16 BP 133/63 04/13/22 09:16 Pulse Ox 97 04/13/22 09:31 O2 Del Method Nasal Cannula 04/13/22 09:31 O2 Flow Rate 2 04/13/22 09:31 Constitutional + cachectic; no acute distress ENMT Mouth: + dentition abnormality, + poor dentition and + small oral opening Thyromental Distance: < 3.5 Finger Breadths Mallampati Class: II Neck normal visual inspection and trachea midline; neck extension not limited Respiratory normal respiratory effort Auscultation: + diminished lung sounds Cardiovascular Rate/Rhythm: regular rate (feels regular to palpation) and regular rhythm (feels regular to palpation) Heart Sounds: + murmur (@ apex 2-3/6 CORBY of MS) Vessels: no carotid bruit Musculoskeletal Spine: normal cervical ROM Extremities: + limited ROM of extremities; + extremities abnormal to inspection Neurologic + does not move all extremities Motor/Sensory: no sensory deficit Psychiatric Orientation: alert and oriented x 3 Testing Laboratory Results 04/13/22 05:47 04/13/22 05:47 PT 11.1 Seconds (9.0-12.0) 04/12/22 12:40 INR 1.0 (0.9-1.1) 04/12/22 12:40 APTT 26.8 Seconds (21.0-31.0) 04/12/22 12:40 Blood Type A Positive 04/12/22 18:18 Antibody Screen NEGATIVE 04/12/22 18:18 Electrocardiogram Date: 04/12/22 Findings: + AFIB @ (A Flutter @ 83 w/ variable AV block) Chest X-Ray Date: 04/12/22 Findings: + infiltrate (left airspace opacity) and + pleural effusion (small left) Echocardiogram Date: 01/12/22 EF: 65% LV Function: normal RWMA: + none Other Findings: + atrial enlargement (LA severely dilated), + LVH (moderate) and + diastolic dysfunction Valvular Disease: + MS (mild - moderate) and + MR (moderate) severe MAC severe pulmonary HTN @ 60 torr
[2022-04-13] MEDS ORDERED: fentaNYL citrate 100 MCG/2 ML VIAL ONE (10:43)
[2022-04-13] MEDS ORDERED: PROPOFOL IV EMULSION 10 MG/ML 20 ML VIAL IV ONE (10:44)
[2022-04-13] MEDS ORDERED: LIDOCAINE 2% MPF LOCAL 5 ML VIAL INFIL ONE (10:44)
[2022-04-13] MEDS ORDERED: ROCURONIUM BROMIDE 10 MG/ML 5 ML VIAL IV ONE (10:44)
[2022-04-13] MEDS ORDERED: ORTHO JOINT ANESTHETIC ONE (11:05)
[2022-04-13] MEDS ORDERED: KETAMINE 50 MG/5 ML SYRINGE ONE (11:31)
[2022-04-13] MEDS ORDERED: SUCCINYLCHOLINE 100MG/5ML SYR IV ONE (11:59)
[2022-04-13] MEDS ORDERED: LABETALOL HCL IV 5 MG/ML 20ML IV PRN (12:36)
[2022-04-13] MEDS ORDERED: NALOXONE HCL 0.4 MG/1 ML VIAL/CARP IV PRN (12:36)
[2022-04-13] MEDS ORDERED: PROMETHAZINE HCL 12.5 MG in SODIUM CHLORIDE 0.9% 50 ML IV PRN (12:36)
[2022-04-13] MEDS ORDERED: ATROPINE SULFATE 0.1 MG/ML 10ML SYR IV PRN (12:36)
[2022-04-13] MEDS ORDERED: ePHEDrine sulfate 50 MG/ML AMP IV PRN (12:36)
[2022-04-13] MEDS ORDERED: fentaNYL citrate 100 MCG/2 ML VIAL IV PRN (12:36)
--- NOTE | 2022-04-13 12:49 | Post Operative Brief Note ---
Immediate Post Op Note v1 Date of Surgery April 13, 2022 Pre & Post Diagnosis Operation Date: 04/13/22 09:40 <No data on this case meets the specified criteria> I identified the patient and participated in the time-out.: Yes Procedure Operation Date: 04/13/22 09:40 <No data on this case meets the specified criteria> Surgeon Louie Winslow MD Paste Mixer Liquid [place]/Masood Estimated Blood Loss 75 Findings Consistent with Post-Op Diagnosis Drains Her Catheter (16f inserted by Alma Delia Parra RN. 10cc in [facility]
[2022-04-13] MEDS ORDERED: SUGAMMADEX SODIUM 200 MG/2 ML VIAL IV ONE (12:50)
[2022-04-13] MEDS ORDERED: ONDANSETRON INJ 2 MG/ML 2 ML VIAL ONE (12:51)
--- NOTE | 2022-04-13 13:09 | Operative Report (OR) ---
DATE OF PROCEDURE: 04/13/2022 SURGEON: Louie Winslow MD STUDENT TEACHER: Valencia. SECOND STUDENT TEACHER: Leandro Correia PA-C PREOPERATIVE DIAGNOSIS: Femoral neck fracture, unstable, right hip. POSTOPERATIVE DIAGNOSIS: Femoral neck fracture, unstable , right hip. OPERATION PERFORMED: Cemented bipolar replacement, right hip. SUMMARY OF IMPLANTS: Size 2 standard cemented Shushan stem, 10 centralizer 28 x 45 bipolar, 28+5 head, 1 bag of Palacos G cement. ESTIMATED BLOOD LOSS: 75 mL or less. CRYSTALLOID: Per Anesthesia. PATHOLOGY: Pending on bone. DVT prophylaxis per protocol. DESCRIPTION OF PROCEDURE: The patient was appropriately identified, site verified, consent verified. Antibiotics were confirmed as being given. A Her was placed by nursing and the patient was placed in left lateral decubitus position and the right lower extremity prepped and draped in the usual routine fashion. A posterior approach to hip was then made. Sharp dissection carried through skin, blunt dissection down to the fascia. Fascia was then opened and retractor placed. Care taken to protect the sciatic nerve. The short external rotators were identified and released. Capsule was then T'd. The femoral neck was then resected. The femoral head was then removed. Small bone fragments were removed from inside the acetabulum. This area was then irrigated. The proximal femur was then prepared with a lateralizing rasp, canal finder, and serial broaching. A size 2 was enough. Once this was all flushed out, the size 2 was then cemented in position after 14 minutes curing. The reduction was carried out with a +5 head and the 45 acetabulum. That was measured once the femoral neck was resected that was all taken care of and measured and advance and trial reduction carried out with the trial implants. The hip was stable in 130 degrees of flexion, internal rotation at 90 degrees to 30 degrees and the extension was excellent. Once everything was reduced and then placed in position, the irrigation was then carried out one final time with Betadine, Pulsavac, and then the capsule closed with 2-0 Vicryl, short external rotators with the same. The IT band and gluteal jesus fascia with #2 Vicryl, the superficial layers were then injected with Orthomix and then the subcutaneous layer closed with 2-0 Vicryl and the skin with stainless steel clips. Appropriate dressing applied. The patient was transferred to recovery room in satisfactory condition, having tolerated the procedure well. Job ID: [id number] [facility]
--- NOTE | 2022-04-13 13:36 | Operative Report ---
Post Operative Report Pre & Post Diagnosis Operation Date: 04/13/22 09:40 Pre-Op Diagnosis: Right Hip Fracture Post-Op Diagnosis: Right Hip Fracture I identified the patient and participated in the time-out.: Yes Procedure Operation Date: 04/13/22 09:40 Actual Procedures p Right Hip Hemiarthroplasty, Cemented(Right) - Louie Winslow MD Surgeon NICKO Winslow MD Hr Specialist Valencia/Masood SINGH Estimated Blood Loss 75 Findings Consistent with Post-Op Diagnosis See operative report Specimens See operative report Drains None Complications none Disposition Accompanied Patient To Recovery: Yes Indications This 89-year-old female presented through the ED after falling at her detention facility. She was found to have a subcapital right hip fracture. She elected to proceed with surgical intervention after being educated about potential risks and outcomes. Preoperative imaging was obtained. Description of Procedure Patient was taken to the operating room where she was given a general anesthetic. She was prepped and draped in the usual sterile fashion. Please see Dr. Winslow's operative report for specifics of the procedure. I was present for the entire case from initial patient positioning through final closure. Assistance was provided in tissue retraction, hemostasis, trial implant placement, final implant placement, and final wound closure. Patient was taken to the recovery room in satisfactory condition. I attest to the content of the Intraoperative Record and any orders documented therein. Any exceptions are noted below.
--- NOTE | 2022-04-13 13:36 | XRay Report ---
SINGLE VIEW PELVIS CLINICAL HISTORY: Postoperative examination. FINDINGS: An AP, portable, supine pelvic radiograph is compared to studies dated 04/12/2022. Again see n are comminuted and displaced right pubic ring fractures. A right hip arthroplasty is in near anatom ic alignment. No new fracture is seen. Moderate to advanced degenerative joint space narrowing is see n in the left hip. Skin clips, subcutaneous gas, and soft tissue swelling overlying the right hip are expected postoperative changes. There is calcification at the origin of the hamstrings tendons. Athe rosclerotic calcification is noted in the femoral arteries. Lumbosacral spondylosis is partially imag ed. IMPRESSION: 1. Expected postoperative findings status post right hip arthroplasty. No new fracture is seen. 2. Comminuted and displaced right pubic ring fractures are again noted. Electronically signed by: Ab Boston M.D. 04/13/2022 1:34 PM
--- NOTE | 2022-04-13 14:04 | Anesthesiology Progress Note ---
Date of Service April 13, 2022 Anesthesia Post Procedure Vital Signs Vital Signs: Temp Pulse Pulse Pulse Pulse Resp BP 04/13/22 13:45 71 15 04/13/22 13:35 70 19 04/13/22 13:55 69 20 04/13/22 13:25 70 19 04/13/22 13:18 36.0 C L 68 12 04/13/22 09:31 04/13/22 09:16 36.5 C 71 22 04/13/22 09:14 04/13/22 07:00 36.7 C 73 18 04/13/22 07:10 67 04/13/22 04:50 04/13/22 03:33 35.9 C L 69 18 04/13/22 01:23 04/12/22 23:24 36.5 C 82 16 04/12/22 22:10 77 04/12/22 20:29 77 04/12/22 22:22 04/12/22 20:00 36.5 C 80 18 04/12/22 22:08 04/12/22 19:35 86 14 04/12/22 18:08 04/12/22 17:00 80 140/83 04/12/22 16:30 79 136/64 04/12/22 16:01 80 22 128/67 04/12/22 15:30 80 21 137/64 04/12/22 14:30 79 27 H 125/66 BP Pulse Ox Pulse Ox O2 Del Method O2 Del Method O2 Flow Rate O2 Flow Rate 04/13/22 13:45 124/68 95 Room Air 04/13/22 13:35 137/74 100 Oxymask 10 04/13/22 13:55 135/68 100 Room Air 04/13/22 13:25 155/69 H 100 Oxymask 10 04/13/22 13:18 148/71 H 100 Oxymask 10 04/13/22 09:31 97 Nasal Cannula 2 04/13/22 09:16 133/63 92 Room Air 04/13/22 09:14 Nasal Cannula 2 04/13/22 07:00 135/72 100 Nasal Cannula 2 04/13/22 07:10 04/13/22 04:50 100 Nasal Cannula 2 04/13/22 03:33 151/76 H 100 Nasal Cannula 2 04/13/22 01:23 100 Nasal Cannula 2 04/12/22 23:24 136/70 99 Nasal Cannula 2 04/12/22 22:10 04/12/22 20:29 04/12/22 22:22 Nasal Cannula 2 04/12/22 20:00 139/68 100 Nasal Cannula 2 04/12/22 22:08 100 Nasal Cannula 2 04/12/22 19:35 92/71 L 98 Room Air 04/12/22 18:08 100 Nasal Cannula 2 04/12/22 17:00 100 04/12/22 16:30 100 04/12/22 16:01 100 04/12/22 15:30 98 04/12/22 14:30 Pain Intensity Right Hip: Pain Intensity: 6 Transfer of Care Handoff Completed per policy Notes Mental Status: alert / awake / arousable Patient Amnestic to Procedure: Yes Nausea / Vomiting: adequately controlled Pain: adequately controlled Airway Patency, RR, SpO2: stable & adequate BP & HR: stable & adequate Hydration State: stable & adequate Anesthetic Complications: no major complications apparent
[2022-04-13] MEDS ORDERED: HYDROmorphone INJ 0.5 MG/0.5 ML SYR IV PRN (15:05)
[2022-04-13] MEDS ORDERED: ALUMINUM/MAGNESIUM SUSP 30 ML UDC PO PRN (15:05)
[2022-04-13] MEDS ORDERED: METOCLOPRAMIDE HCL INJ 5 MG/ML 2 ML VIAL IV PRN (15:05)
[2022-04-13] MEDS ORDERED: diphenhydrAMINE 50 MG/ML VIAL IV PRN (15:05)
--- NOTE | 2022-04-13 15:18 | Electrocardiogram Report ---
Test Reason : Blood Pressure : / mmHG Vent. Rate : 083 BPM Atrial Rate : 000 BPM P-R Int : 000 ms QRS Dur : 092 ms QT Int : 380 ms P-R-T Axes : 047 042 081 degrees QTc Int : 446 ms Poor data quality, interpretation may be adversely affected Sinus rhythm with Premature atrial complexes When compared with ECG of 07-MAR-2022 09:53, Right bundle branch block is no longer Present Premature atrial complexes are now Present Confirmed by Glenn Bragg ([id number]) on 04/13/2022 3:18:21 PM Referred By: REFERRED SELF Confirmed By:Glenn Bragg
[2022-04-13] MEDS ORDERED: WARFARIN SOD 5 MG TAB PO ONE (15:55)
[2022-04-13] MEDS: ORTHO WARFARIN NOMOGRAM SCH (16:32)
[2022-04-13] MEDS: SODIUM CHLORIDE 0.9% 1000ML 1,000 ML IV SCH (17:13)
[2022-04-13] MEDS: KETOROLAC TROMETHAMINE 15 MG/ML VIAL IV SCH ×2 (17:14→21:15)
[2022-04-13] MEDS: ASCORBIC ACID 500 MG TAB PO SCH (17:15)
[2022-04-13] MEDS: cefTRIAXone SODIUM 1,000 MG in DEXTROSE 5% AD-VAN 50 ML IV SCH (17:17)
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
[2022-04-13] MEDS: ceFAZolin 2000MG 2,000 MG/15 ML SYR IV SCH (21:13)
[2022-04-13] MEDS: MONTELUKAST SODIUM 10 MG TABLET PO SCH (21:15)
[2022-04-14] MEDS: ACETAMINOPHEN 500 MG TAB PO SCH ×3 (01:45→16:59)
[2022-04-14] MEDS: SODIUM CHLORIDE 0.9% 1000ML 1,000 ML IV SCH (03:09)
[2022-04-14] MEDS: ceFAZolin 2000MG 2,000 MG/15 ML SYR IV SCH (04:13)
[2022-04-14] MEDS: KETOROLAC TROMETHAMINE 15 MG/ML VIAL IV SCH ×2 (04:14→09:53)
[2022-04-14] MEDS: LORazepam 0.5 MG TAB PO SCH ×4 (05:51→19:39)
--- NOTE | 2022-04-14 06:37 | Progress Notes ---
SUBJECTIVE: Postoperative day #1, status post bipolar hip replacement for femoral neck fracture, rig ht lower extremity. The patient is quiet at night. Remains relatively disoriented. OBJECTIVE: Vital signs are stable. She is afebrile. Neurovascular check, femoral, sciatic nerve is normal. Wound dressing clean, dry and intact. PLAN: We will leave that in place today as long as it stays dry. Get out of bed today and mobilize as much as possible. Based on pubic rami fractures, can be weightbearing as tolerated on the right lo wer extremity. DVT prophylaxis per medicine. Nutrition supplements ordered. Job ID: [id number]
[2022-04-14] MEDS: FLUTICASONE PROPIONATE NA SPR 16 GM BTL NAE SCH (08:04)
[2022-04-14] MEDS: FUROSEMIDE 40 MG TAB PO SCH (08:04)
[2022-04-14] MEDS: SERTRALINE HCL 100 MG TABLET PO SCH (08:04)
[2022-04-14] MEDS: ASCORBIC ACID 500 MG TAB PO SCH ×2 (08:04→16:59)
[2022-04-14] MEDS: AMIODARONE 200 MG TAB PO SCH (08:04)
[2022-04-14] MEDS: FERROUS SULFATE 325 MG TAB PO SCH ×2 (08:05→19:32)
[2022-04-14] MEDS: METOPROLOL TARTRATE 25 MG TAB PO SCH ×2 (08:05→19:32)
[2022-04-14] MEDS: PANTOprazole 40 MG TAB PO SCH ×2 (08:05→19:33)
[2022-04-14] MEDS: DONEPEZIL HCL 5 MG TAB PO SCH ×2 (08:05→19:32)
[2022-04-14] MEDS: buPROPion SR 100 MG TABCR PO SCH (08:05)
[2022-04-14] MEDS: MULTIVITAMIN TAB PO SCH (08:06)
[2022-04-14] MEDS: LIDOCAINE 5% 1 PATCH TD SCH (08:06)
[2022-04-14] MEDS: FAMOTIDINE 20 MG TAB PO SCH ×2 (08:06→19:32)
[2022-04-14] MEDS: SPIRONOLACTONE 25 MG TAB PO SCH (08:06)
[2022-04-14] MEDS: POTASSIUM CHLORIDE CRTAB 20 MEQ TABCR PO SCH (08:09)
[2022-04-14 08:31] LABS: Basophils # (auto) 0.01 K/uL (0-0.2); Basophils % (auto) 0.1 %; Eosinophils # (auto) 0.02 K/uL (0-0.50); Eosinophils % (auto) 0.2 %; Hematocrit (blood only) 25.7 % (37.0-47.0); Hemoglobin 8.4 g/dl (12.0-16.0); Immature Granulocytes # (auto) 0.05 K/uL (0.01-0.20); Immature Granulocytes % (auto) 0.5 %; Lymphocytes # (auto) 0.38 K/uL (1.2-3.4); Lymphocytes % (auto) 3.8 %; Mean Corpuscular Hemoglobin 27.5 pg (25.0-34.0); Mean Corpuscular Hgb Conc 32.7 g/dL (32.0-36.0); Mean Corpuscular Volume 84.3 fL (80.0-100.0); Mean Platelet Volume 12.3 fL (9.4-12.4); Monocytes # (auto) 0.94 K/uL (0.11-0.59); Monocytes % (auto) 9.3 %; Neutrophils # (auto) 8.67 K/uL (1.40-6.50); Neutrophils % (auto) 86.1 %; Platelet Count 232 K/uL (130-400); RDW Coefficient of Variation 15.7 % (11.5-14.5); RDW Standard Deviation 48.2 fL (36.4-46.3); Red Blood Count 3.05 M/uL (4.20-5.40); White Blood Count 10.07 K/ul (4.8-10.8)
[2022-04-14 08:50] LABS: BUN Creatinine Ratio 32.8 (10-20); Calcium 8.1 mg/dl (8.5-10.1); Creatinine Clr Calc Pharmacy 21.8 ml/min; Est GFR (African American) 39.5 ml/min; Est GFR (Non-African American) 34.1 ml/min; Magnesium 1.8 mg/dl (1.7-2.4); Phosphorus 5.5 mg/dl (2.5-4.9); Potassium 4.7 mmol/L (3.5-5.1)
--- NOTE | 2022-04-14 08:52 | Hospitalist Progress Note ---
Date of Service April 14, 2022 Assessment & Plan (1) Fall: (2) Closed fracture of right hip: (3) Closed pelvic fracture: Plan: - med surg with tele -Imaging - R Impacted fracture of the subcapital right femur, Right superior and inferior pubic ring fractures with surrounding hemorrhage, ondisplaced fracture of the right sacral ala, and Intramuscular hemorrhage is seen within the right obturator internus and right obturator externus muscles. Pt now s/p surgical repair (04/13/2022) - Subacute to acute T8 compression fracture with minimal retropulsion - may require bracing such as TSLO, conservative treatment per ortho - anticoagulation - per orthopedics -discussed with orthopedics, recommend warfarin, goal INR about 1.8. This was also discussed with pharmacy. ASA resumed - Started on ancef preoperatively, pt was on outpatient Bactrim for UTI x 5 days UTI - U cultx positive for E.coli - will continue with Abx - Maintain Her catheter for now and remove as soon as possible - Pain control, bowel regimen ordered - PT/OT consults - CM consulted for therapy placement afterwards since currently in [facility] (4) PAF (paroxysmal atrial fibrillation): Plan: - Currently rate controlled with HR in 80s at bedside, - not on blood thinner due to fall risk - EKG reviewed - Continue amiodarone and metoprolol for rate control - now on warfarin given hip surgery (but goal INR about 1.8) (5) (HFpEF) heart failure with preserved ejection fraction: Plan: -History of such, CT of the chest evaluated personally, shows bilateral pleural effusions: moderate left and small right, appears similar to previous - Will continue lasix, spironolactone as BP allows - cardiology consulted for pre-op eval - however pt taken to OR prior to be seen by cardiology - monitor I/O closely (6) Asthma-COPD overlap syndrome: Plan: - Denies current respiratory symptoms, continue prn inhalers DVT ppx: Teds, scds CODE: DNR/DNI Dispo: From [facility], involved in DC Admission and Anticipated Discharge Date Admission Date: April 12, 2022 Subjective Pt seen in follow up of R hip fx, UTI Currently laying in bed, in no acute distress, family present at the bedside She is able to follow simple commands Denies chest pain or shortness of breath, denies abd. pain, nausea, cough, fever or chills Reports hip pain - I notified RN Encouraged to use incentive spirometer Discussed with orthopedics, regarding anticoagulation, recommend warfarin, goal INR about 1.8. Discussed this also with pharmacy. Review of Systems Review of Systems: All systems reviewed & are unremarkable except as noted in Subjective Physical Exam Physical Exam: General: + thin, + frail elderly F in NAD Head: Normocephalic, atraumatic ENT: PERRL, EOMI, no pharyngeal exudate Chest: Diminished breath sounds at bases bilaterally, clear to auscultation otherwise Cardiac: irregularly irregular, + systolic murmur Abdominal: NABS x 4 quadrants, soft, nondistended, nontender to palpation Extremities: Generalized muscle atrophy in upper extremities, R leg with multiple areas of abrasions on the right lateral lower leg, trace edema in BLE around ankles, Surgical dressings applied to Right thigh Skin: warm , dry, extrem. as above, buttock wound (see image in EMR per wound care) Neuro: awake alert, able to answer simple questions appropriately, speech fluent, moves extremities Results & Data Results & Data ([facility]) Vital Signs (Past 12 Hours) Vital Signs Temp Pulse Pulse Pulse Resp BP Pulse Ox 04/14/22 07:55 36.4 C L 72 16 122/62 100 04/13/22 22:15 70 04/13/22 21:30 04/14/22 03:01 04/13/22 22:00 04/14/22 03:01 36.9 C 69 18 105/59 L 100 04/13/22 22:53 36.7 C 72 16 106/62 100 04/13/22 21:30 36.4 C L 74 18 104/57 L 100 Pulse Ox O2 Del Method O2 Del Method O2 Flow Rate O2 Flow Rate 04/14/22 07:55 Nasal Cannula 2 04/13/22 22:15 04/13/22 21:30 Nasal Cannula 2 04/14/22 03:01 100 Nasal Cannula 2 04/13/22 22:00 100 Nasal Cannula 2 04/14/22 03:01 Nasal Cannula 2 04/13/22 22:53 Nasal Cannula 2 04/13/22 21:30 Nasal Cannula 2 Laboratory Results 04/14/22 04/14/22 04/14/22 Range/Units 07:49 07:49 07:49 WBC 10.07 (4.8-10.8) K/ul RBC 3.05 L (4.20-5.40) M/uL Hgb 8.4 L (12.0-16.0) g/dl Hct 25.7 L (37.0-47.0) % MCV 84.3 (80.0-100.0) fL MCH 27.5 (25.0-34.0) pg MCHC 32.7 (32.0-36.0) g/dL RDW Std Deviation 48.2 H (36.4-46.3) fL RDW Coeff of [place] 15.7 H (11.5-14.5) % Plt Count 232 (130-400) K/uL MPV 12.3 (9.4-12.4) fL Immature Gran % (Auto) 0.5 % Neut % (Auto) 86.1 % Lymph % (Auto) 3.8 % [place] % (Auto) 9.3 % Eos % (Auto) 0.2 % Baso % (Auto) 0.1 % Neut # (Auto) 8.67 H (1.40-6.50) K/uL Lymph # (Auto) 0.38 L (1.2-3.4) K/uL [place] # (Auto) 0.94 H (0.11-0.59) K/uL Eos # (Auto) 0.02 (0-0.50) K/uL Baso # (Auto) 0.01 (0-0.2) K/uL Immature Gran # (Auto) 0.05 (0.01-0.20) K/uL PT Pending INR Pending Sodium 137 (136-145) mmol/L Potassium 4.7 D (3.5-5.1) mmol/L Chloride 103 (98-107) mmol/L Carbon Dioxide 28 (21-32) mmol/L Anion Gap 6 (3-11) BUN 45 H (6-23) mg/dl Creatinine 1.37 H D (0.6-1.2) mg/dl Est Cr Clr Drug Dosing 21.8 ml/min Est GFR ( Amer) 39.5 ml/min Est GFR (Non-Af Amer) 34.1 ml/min BUN/Creatinine Ratio 32.8 H (10-20) Glucose 80 (70-99(Fasting)) mg/dl Calcium 8.1 L (8.5-10.1) mg/dl Phosphorus 5.5 H (2.5-4.9) mg/dl Magnesium 1.8 (1.7-2.4) mg/dl Medications Administered Current Inpatient Medications Acetaminophen (Acetaminophen 500 Mg Tab) 1,000 mg PO Q8H [facility] Stop: 05/12/22 18:07 Last Admin: 04/14/22 01:45 Dose: Not Given Al Hydrox/Mg Hydrox/Simethicone (Aluminum/Magnesium Susp 30 Ml Udc) 15 ml PO Q4H PRN PRN Reason: Heartburn Stop: 05/13/22 15:04 Amiodarone HCl (Amiodarone 200 Mg Tab) 200 mg PO QAM [facility] Stop: 05/13/22 08:59 Last Admin: 04/14/22 08:04 Dose: 200 mg Ascorbic Acid (Ascorbic Acid 500 Mg Tab) 500 mg PO BIDM [facility] Stop: 05/13/22 16:59 Last Admin: 04/14/22 08:04 Dose: 500 mg Bisacodyl (Bisacodyl 10 Mg Supp) 10 mg [place] DAILY PRN PRN Reason: Constipation Stop: 05/12/22 18:07 Bupropion HCl (Bupropion Sr 100 Mg Tabcr) 100 mg PO DAILY [facility] Stop: 05/13/22 08:59 Last Admin: 04/14/22 08:05 Dose: 100 mg Diphenhydramine HCl (Diphenhydramine 50 Mg/Ml Vial) 25 mg IV Q8H PRN PRN Reason: Itching Stop: 05/13/22 15:04 Donepezil HCl (Donepezil Hcl 5 Mg Tab) 5 mg PO BID [facility] Stop: 05/12/22 20:59 Last Admin: 04/14/22 08:05 Dose: 5 mg Famotidine (Famotidine 20 Mg Tab) 20 mg PO BID [facility] Stop: 05/12/22 20:59 Last Admin: 04/14/22 08:06 Dose: 20 mg Ferrous Sulfate (Ferrous Sulfate 325 Mg Tab) 325 mg PO BID [facility] Stop: 05/12/22 20:59 Last Admin: 04/14/22 08:05 Dose: 325 mg Fluticasone Propionate (Fluticasone Propionate Na Spr 16 Gm Btl) 2 sprays [place] QAM [facility] Stop: 05/12/22 18:07 Last Admin: 04/14/22 08:04 Dose: 2 sprays Furosemide (Furosemide 40 Mg Tab) 40 mg PO DAILY [facility] Stop: 05/13/22 08:59 Last Admin: 04/14/22 08:04 Dose: 40 mg Hydromorphone HCl (Hydromorphone Inj 0.5 Mg/0.5 Ml Syr) 0.25 mg IV Q2H PRN PRN Reason: Pain or Pre PT Stop: 04/27/22 15:04 Ceftriaxone Sodium 1,000 mg/ (Dextrose) 50 mls @ 100 mls/hr IV Q24H [facility]; Protocol Stop: 04/18/22 16:29 Last Infusion: 04/13/22 18:05 Dose: Infused Ketorolac Tromethamine (Ketorolac Tromethamine 15 Mg/Ml Vial) 15 mg IV Q6H [facility] Stop: 04/14/22 10:01 Last Admin: 04/14/22 04:14 Dose: 15 mg Levalbuterol HCl (Levalbuterol Hcl 1.25 Mg/3 Ml Neb) 1.25 mg NEB Q4R PRN; Protocol PRN Reason: shortness of breath or wheezing Stop: 05/12/22 18:07 Lidocaine (Lidocaine 5% 1 Patch) 1 patch TD [facility] Stop: 05/13/22 08:59 Last Admin: 04/14/22 08:06 Dose: Not Given Lorazepam (Lorazepam 0.5 Mg Tab) 0.5 mg PO 0630,1500,2000 [facility] Stop: 05/12/22 19:59 Last Admin: 04/14/22 06:07 Dose: Not Given Magnesium Hydroxide (Magnesium Hydroxide Susp 30 Ml Udc) 30 ml PO DAILY PRN PRN Reason: Constipation Stop: 05/12/22 18:07 Metoclopramide HCl (Metoclopramide Hcl Inj 5 Mg/Ml 2 Ml Vial) 10 mg IV Q6H PRN PRN Reason: Nausea And Vomiting Stop: 05/13/22 15:04 Metoprolol Tartrate (Metoprolol Tartrate 25 Mg Tab) 12.5 mg PO BID [facility] Stop: 05/12/22 20:59 Last Admin: 04/14/22 08:05 Dose: 12.5 mg Miscellaneous (Remove Lidoderm Patch) 1 each N/A DAILY@2100 [facility] Stop: 05/13/22 20:59 Last Admin: 04/13/22 21:18 Dose: 1 each Miscellaneous Information (Ortho Warfarin Nomogram) 1 each N/A DAILY@1400 [facility]; Protocol Stop: 05/13/22 15:04 Last Admin: 04/13/22 16:32 Dose: 1 each Montelukast Sodium (Montelukast Sodium 10 Mg Tablet) 10 mg PO HS [facility] Stop: 05/12/22 20:59 Last Admin: 04/13/22 21:15 Dose: 10 mg Multivitamins (Multivitamin Tab) 1 tab PO QAM [facility] Stop: 05/14/22 08:59 Last Admin: 04/14/22 08:06 Dose: 1 tab Naloxone HCl (Naloxone Hcl 0.4 Mg/1 Ml Vial/Carp) 0.1 mg IV UD PRN PRN Reason: Opiate Overdose Stop: 05/12/22 18:07 Oxycodone HCl (Oxycodone Hcl Ir 5 Mg Tab (Immediate Release)) 5 mg PO Q6H PRN PRN Reason: Moderate Pain Stop: 04/26/22 18:10 Last Admin: 04/12/22 20:30 Dose: 5 mg Pantoprazole Sodium (Pantoprazole 40 Mg Tab) 40 mg PO BID [facility] Stop: 05/12/22 20:59 Last Admin: 04/14/22 08:05 Dose: 40 mg Potassium Chloride (Potassium Chloride Crtab 20 Meq Tabcr) 20 meq PO DAILY [facility] Stop: 05/13/22 08:59 Last Admin: 04/14/22 08:09 Dose: 20 meq Senna/Docusate Sodium (Docusate Sodium/Senna 50/8.6mg Tab) 2 tab PO HS [facility] Stop: 05/12/22 20:59 Last Admin: 04/13/22 07:31 Dose: 2 tab Sertraline HCl (Sertraline Hcl 100 Mg Tablet) 200 mg PO QAM [facility] Stop: 05/13/22 08:59 Last Admin: 04/14/22 08:04 Dose: 200 mg Spironolactone (Spironolactone 25 Mg Tab) 25 mg PO DAILY [facility] Stop: 05/13/22 08:59 Last Admin: 04/14/22 08:06 Dose: 25 mg (1) Fall Encounter type: initial encounter Qualified Code(s): W19.XXXA - Unspecified fall, initial encounter (2) Closed fracture of right hip Encounter type: initial encounter Qualified Code(s): S72.001A - Fracture of unspecified part of neck of right femur, initial encounter for closed fracture (3) Closed pelvic fracture Encounter type: initial encounter Fracture alignment: without disruption of pelvic ring Pelvic bone location: multiple parts Qualified Code(s): S32.82XA - Multiple fractures of pelvis without disruption of pelvic ring, initial encounter for closed fracture
[2022-04-14] MEDS: ASPIRIN 81 MG ECTAB PO SCH (09:53)
[2022-04-14] MEDS: ORTHO WARFARIN NOMOGRAM SCH (12:12)
[2022-04-14] MEDS: oxyCODONE HCL IR 5 MG TAB (IMMEDIATE RELEASE) PO PRN (14:41)
[2022-04-14] MEDS ORDERED: WARFARIN SOD 5 MG TAB PO SCH (16:00)
[2022-04-14] MEDS ORDERED: WARFARIN SOD 4 MG TAB PO SCH (16:00)
[2022-04-14] MEDS: cefTRIAXone SODIUM 1,000 MG in DEXTROSE 5% AD-VAN 50 ML IV SCH (17:02)
[2022-04-14 19:11] LABS: Hemoglobin 8.6 g/dl (12.0-16.0)
[2022-04-14] MEDS: MONTELUKAST SODIUM 10 MG TABLET PO SCH (19:32)
[2022-04-14] MEDS: DOCUSATE SODIUM/SENNA 50/8.6MG TAB PO SCH (19:39)
[2022-04-15] MEDS: ACETAMINOPHEN 500 MG TAB PO SCH ×3 (02:45→17:11)
[2022-04-15] MEDS: LORazepam 0.5 MG TAB PO SCH ×3 (06:02→20:05)
--- NOTE | 2022-04-15 07:10 | Progress Notes ---
SUBJECTIVE: Postop check status post right bipolar femoral endoprosthesis cemented for femoral neck fracture, right hip. At this point in time, the patient is lying comfortably in bed, getting a bladd er scan. Urine output overnight was about 100 mL, slightly more. She denies chest pain, shortness of breath, fever, chills, nausea, vomiting or headache. She is more awake and alert today. She recalls all the events that happened. She knows where she is at. VITAL SIGNS: Stable. She is afebrile. Neurovascular check, femoral sciatic nerve is normal. Wound dressing clean, dry and intact. ASSESSMENT: Overall doing well. PLAN: Continue with mobilization to prevent bedsores. Suggest discontinue Her. Fluid management per internal medicine. Coumadin to keep INR in the 1.8 range, do not go above 2.0. Nutrition status needs to be assessed. Ordered supplements 2 days ago. Continue with appropriate case management as sessment for placement. Job ID: [id number]
[2022-04-15 08:26] LABS: Hematocrit (blood only) 25.9 % (37.0-47.0); Hemoglobin 8.7 g/dl (12.0-16.0); Mean Corpuscular Hemoglobin 27.4 pg (25.0-34.0); Mean Corpuscular Hgb Conc 33.6 g/dL (32.0-36.0); Mean Corpuscular Volume 81.4 fL (80.0-100.0); Mean Platelet Volume 12.7 fL (9.4-12.4); Platelet Count 276 K/uL (130-400); RDW Coefficient of Variation 15.6 % (11.5-14.5); RDW Standard Deviation 45.8 fL (36.4-46.3); Red Blood Count 3.18 M/uL (4.20-5.40); White Blood Count 9.06 K/ul (4.8-10.8)
[2022-04-15] MEDS: METOPROLOL TARTRATE 25 MG TAB PO SCH ×2 (08:44→20:05)
[2022-04-15] MEDS: buPROPion SR 100 MG TABCR PO SCH (08:44)
[2022-04-15] MEDS: PANTOprazole 40 MG TAB PO SCH ×2 (08:44→20:06)
[2022-04-15] MEDS: DONEPEZIL HCL 5 MG TAB PO SCH ×2 (08:45→20:06)
[2022-04-15] MEDS: FUROSEMIDE 40 MG TAB PO SCH (08:45)
[2022-04-15] MEDS: MULTIVITAMIN TAB PO SCH (08:45)
[2022-04-15] MEDS: FAMOTIDINE 20 MG TAB PO SCH ×2 (08:45→20:08)
[2022-04-15] MEDS: SERTRALINE HCL 100 MG TABLET PO SCH (08:45)
[2022-04-15] MEDS: AMIODARONE 200 MG TAB PO SCH (08:45)
[2022-04-15] MEDS: FLUTICASONE PROPIONATE NA SPR 16 GM BTL NAE SCH (08:45)
[2022-04-15] MEDS: SPIRONOLACTONE 25 MG TAB PO SCH (08:45)
[2022-04-15] MEDS: ASPIRIN 81 MG ECTAB PO SCH (08:45)
[2022-04-15] MEDS: ASCORBIC ACID 500 MG TAB PO SCH ×2 (08:45→17:11)
[2022-04-15] MEDS: FERROUS SULFATE 325 MG TAB PO SCH ×2 (08:45→20:05)
--- NOTE | 2022-04-15 08:45 | Hospitalist Progress Note ---
Date of Service April 15, 2022 Assessment & Plan (1) Fall: (2) Closed fracture of right hip: (3) Closed pelvic fracture: Plan: - med surg with tele -Imaging - R Impacted fracture of the subcapital right femur, Right superior and inferior pubic ring fractures with surrounding hemorrhage, ondisplaced fracture of the right sacral ala, and Intramuscular hemorrhage is seen within the right obturator internus and right obturator externus muscles. Pt now s/p surgical repair (04/13/2022) - Subacute to acute T8 compression fracture with minimal retropulsion - may require bracing such as TSLO, conservative treatment per ortho - anticoagulation - per orthopedics -discussed with orthopedics, recommend warfarin, goal INR about 1.8. This was also discussed with pharmacy. ASA resumed - Started on ancef preoperatively, pt was on outpatient Bactrim for UTI x 5 days UTI - U cultx positive for E.coli - will continue with Abx - Maintain Her catheter for now and remove as soon as possible - Pain control, bowel regimen ordered - PT/OT consults - CM consulted for therapy placement afterwards since currently in [facility] Acute blood loss anemia, post-operative, expected Hgb on admission between 10 and 12 Post op - Hgb down to 8-9 Hgb has been stable from previous day, no need for blood transfusion STEPHANIE - Cr up at 2.3 - likely from poor oral intake, blood loss / surgery, etc. - will provide IVF and monitor I/Os - encourage PO intake - discussed w/ RN (4) PAF (paroxysmal atrial fibrillation): Plan: - Currently rate controlled with HR in 80s at bedside, - not on blood thinner due to fall risk - EKG reviewed - Continue amiodarone and metoprolol for rate control - now on warfarin given hip surgery (but goal INR about 1.8) (5) (HFpEF) heart failure with preserved ejection fraction: Plan: -History of such, CT of the chest evaluated personally, shows bilateral pleural effusions: moderate left and small right, appears similar to previous - Will continue lasix, spironolactone as BP allows - cardiology consulted for pre-op eval - however pt taken to OR prior to be seen by cardiology - monitor I/O closely (6) Asthma-COPD overlap syndrome: Plan: - Denies current respiratory symptoms, continue prn inhalers - currently on RA DVT ppx: Teds, scds, warfarin CODE: DNR/DNI Dispo: From [facility], DOUG involved in DC Admission and Anticipated Discharge Date Admission Date: April 12, 2022 Subjective Pt seen in follow up of R hip fx, UTI Currently sitting up in bed, in no acute distress Reports poor appetite Denies chest pain or shortness of breath, denies abd. pain, nausea, cough, fever or chills Encouraged to drink more fluids, and boost, encouraged use incentive spirometer Discussed with orthopedics, regarding anticoagulation, recommend warfarin, goal INR about 1.8. Discussed this also with pharmacy. Review of Systems Review of Systems: All systems reviewed & are unremarkable except as noted in Subjective Physical Exam Physical Exam: General: + thin, + frail elderly F in NAD Head: Normocephalic, atraumatic ENT: PERRL, EOMI, no pharyngeal exudate Chest: Diminished breath sounds at bases bilaterally, clear to auscultation otherwise Cardiac: irregularly irregular, + systolic murmur Abdominal: NABS x 4 quadrants, soft, nondistended, nontender to palpation Extremities: Generalized muscle atrophy in upper extremities, R leg with multiple areas of abrasions on the right lateral lower leg, trace edema in BLE around ankles, Surgical dressings applied to Right thigh Skin: warm , dry, extrem. as above, buttock wound (see image in EMR per wound care) Neuro: awake alert, able to answer simple questions appropriately, speech fluent, moves extremities Results & Data Results & Data ([facility]) Vital Signs (Past 12 Hours) Vital Signs Temp Pulse Resp BP Pulse Ox O2 Del Method 04/15/22 07:40 36.4 C L 73 18 132/76 96 Room Air Laboratory Results 04/15/22 04/15/22 04/15/22 Range/Units 07:04 07:04 07:04 WBC 9.06 (4.8-10.8) K/ul RBC 3.18 L (4.20-5.40) M/uL Hgb 8.7 L (12.0-16.0) g/dl Hct 25.9 L (37.0-47.0) % MCV 81.4 (80.0-100.0) fL MCH 27.4 (25.0-34.0) pg MCHC 33.6 (32.0-36.0) g/dL RDW Std Deviation 45.8 (36.4-46.3) fL RDW Coeff of [place] 15.6 H (11.5-14.5) % Plt Count 276 (130-400) K/uL MPV 12.7 H (9.4-12.4) fL PT 16.9 H (9.0-12.0) Seconds INR 1.6 H (0.9-1.1) Sodium 133 L (136-145) mmol/L Potassium 5.0 (3.5-5.1) mmol/L Chloride 99 (98-107) mmol/L Carbon Dioxide 25 (21-32) mmol/L Anion Gap 9 (3-11) BUN 60 H (6-23) mg/dl Creatinine 2.33 H D (0.6-1.2) mg/dl Est Cr Clr Drug Dosing 12.8 ml/min Est GFR ( Amer) 20.8 ml/min Est GFR (Non-Af Amer) 17.9 ml/min BUN/Creatinine Ratio 25.8 H (10-20) Glucose 124 H (70-99(Fasting)) mg/dl Calcium 8.1 L (8.5-10.1) mg/dl Phosphorus 5.3 H (2.5-4.9) mg/dl Magnesium 1.8 (1.7-2.4) mg/dl 04/14/22 Range/Units 18:29 WBC (4.8-10.8) K/ul RBC (4.20-5.40) M/uL Hgb 8.6 L (12.0-16.0) g/dl Hct 26.0 L (37.0-47.0) % MCV (80.0-100.0) fL MCH (25.0-34.0) pg MCHC (32.0-36.0) g/dL RDW Std Deviation (36.4-46.3) fL RDW Coeff of [place] (11.5-14.5) % Plt Count (130-400) K/uL MPV (9.4-12.4) fL PT (9.0-12.0) Seconds INR (0.9-1.1) Sodium (136-145) mmol/L Potassium (3.5-5.1) mmol/L Chloride (98-107) mmol/L Carbon Dioxide (21-32) mmol/L Anion Gap (3-11) BUN (6-23) mg/dl Creatinine (0.6-1.2) mg/dl Est Cr Clr Drug Dosing ml/min Est GFR ( Amer) ml/min Est GFR (Non-Af Amer) ml/min BUN/Creatinine Ratio (10-20) Glucose (70-99(Fasting)) mg/dl Calcium (8.5-10.1) mg/dl Phosphorus (2.5-4.9) mg/dl Magnesium (1.7-2.4) mg/dl Medications Administered Current Inpatient Medications Acetaminophen (Acetaminophen 500 Mg Tab) 1,000 mg PO Q8H [facility] Stop: 05/12/22 18:07 Last Admin: 04/15/22 02:45 Dose: 1,000 mg Al Hydrox/Mg Hydrox/Simethicone (Aluminum/Magnesium Susp 30 Ml Udc) 15 ml PO Q4H PRN PRN Reason: Heartburn Stop: 05/13/22 15:04 Amiodarone HCl (Amiodarone 200 Mg Tab) 200 mg PO QAM [facility] Stop: 05/13/22 08:59 Last Admin: 04/15/22 08:45 Dose: 200 mg Ascorbic Acid (Ascorbic Acid 500 Mg Tab) 500 mg PO BIDM [facility] Stop: 05/13/22 16:59 Last Admin: 04/15/22 08:45 Dose: 500 mg Aspirin (Aspirin 81 Mg Ectab) 81 mg PO QAM [facility] Stop: 05/14/22 09:14 Last Admin: 04/15/22 08:45 Dose: 81 mg Bisacodyl (Bisacodyl 10 Mg Supp) 10 mg [place] DAILY PRN PRN Reason: Constipation Stop: 05/12/22 18:07 Bupropion HCl (Bupropion Sr 100 Mg Tabcr) 100 mg PO DAILY [facility] Stop: 05/13/22 08:59 Last Admin: 04/15/22 08:44 Dose: 100 mg Diphenhydramine HCl (Diphenhydramine 50 Mg/Ml Vial) 25 mg IV Q8H PRN PRN Reason: Itching Stop: 05/13/22 15:04 Donepezil HCl (Donepezil Hcl 5 Mg Tab) 5 mg PO BID [facility] Stop: 05/12/22 20:59 Last Admin: 04/15/22 08:45 Dose: 5 mg Famotidine (Famotidine 20 Mg Tab) 20 mg PO BID [facility] Stop: 05/12/22 20:59 Last Admin: 04/15/22 08:45 Dose: 20 mg Ferrous Sulfate (Ferrous Sulfate 325 Mg Tab) 325 mg PO BID [facility] Stop: 05/12/22 20:59 Last Admin: 04/15/22 08:45 Dose: 325 mg Fluticasone Propionate (Fluticasone Propionate Na Spr 16 Gm Btl) 2 sprays CLEMENTINA QAM [facility] Stop: 05/12/22 18:07 Last Admin: 04/15/22 08:45 Dose: 2 sprays Furosemide (Furosemide 40 Mg Tab) 40 mg PO DAILY [facility] Stop: 05/13/22 08:59 Last Admin: 04/15/22 08:45 Dose: 40 mg Hydromorphone HCl (Hydromorphone Inj 0.5 Mg/0.5 Ml Syr) 0.25 mg IV Q2H PRN PRN Reason: Pain or Pre PT Stop: 04/27/22 15:04 Ceftriaxone Sodium 1,000 mg/ (Dextrose) 50 mls @ 100 mls/hr IV Q24H [facility]; Protocol Stop: 04/18/22 16:29 Last Infusion: 04/14/22 17:59 Dose: Infused Sodium Chloride (Nss 1000ml) 1,000 mls @ 80 mls/hr IV .[id number] [facility] Stop: 05/15/22 10:59 Levalbuterol HCl (Levalbuterol Hcl 1.25 Mg/3 Ml Neb) 1.25 mg NEB Q4R PRN; Protocol PRN Reason: shortness of breath or wheezing Stop: 05/12/22 18:07 Lidocaine (Lidocaine 5% 1 Patch) 1 patch TD QAM [facility] Stop: 05/13/22 08:59 Last Admin: 04/15/22 08:46 Dose: Not Given Lorazepam (Lorazepam 0.5 Mg Tab) 0.5 mg PO 0630,1500,2000 [facility] Stop: 05/12/22 19:59 Last Admin: 04/15/22 06:02 Dose: 0.5 mg Magnesium Hydroxide (Magnesium Hydroxide Susp 30 Ml Udc) 30 ml PO DAILY PRN PRN Reason: Constipation Stop: 05/12/22 18:07 Metoclopramide HCl (Metoclopramide Hcl Inj 5 Mg/Ml 2 Ml Vial) 10 mg IV Q6H PRN PRN Reason: Nausea And Vomiting Stop: 05/13/22 15:04 Last Admin: 04/14/22 19:39 Dose: 10 mg Metoprolol Tartrate (Metoprolol Tartrate 25 Mg Tab) 12.5 mg PO BID [facility] Stop: 05/12/22 20:59 Last Admin: 04/15/22 08:44 Dose: 12.5 mg Miscellaneous (Remove Lidoderm Patch) 1 each N/A DAILY@2100 [facility] Stop: 05/13/22 20:59 Last Admin: 04/14/22 19:33 Dose: 1 each Miscellaneous Information (Ortho Warfarin Nomogram) 1 each N/A DAILY@1400 [facility]; Protocol Stop: 05/13/22 15:04 Last Admin: 04/14/22 12:12 Dose: 1 each Montelukast Sodium (Montelukast Sodium 10 Mg Tablet) 10 mg PO HS [facility] Stop: 05/12/22 20:59 Last Admin: 04/14/22 19:32 Dose: 10 mg Multivitamins (Multivitamin Tab) 1 tab PO QAM [facility] Stop: 05/14/22 08:59 Last Admin: 04/15/22 08:45 Dose: 1 tab Naloxone HCl (Naloxone Hcl 0.4 Mg/1 Ml Vial/Carp) 0.1 mg IV UD PRN PRN Reason: Opiate Overdose Stop: 05/12/22 18:07 Oxycodone HCl (Oxycodone Hcl Ir 5 Mg Tab (Immediate Release)) 5 mg PO Q6H PRN PRN Reason: Moderate Pain Stop: 04/26/22 18:10 Last Admin: 04/14/22 14:41 Dose: 5 mg Pantoprazole Sodium (Pantoprazole 40 Mg Tab) 40 mg PO BID [facility] Stop: 05/12/22 20:59 Last Admin: 04/15/22 08:44 Dose: 40 mg Polyethylene Glycol (Polyethylene (Miralax) 17 Gm Pack) 17 gm PO DAILY [facility] Stop: 05/15/22 10:59 Potassium Chloride (Potassium Chloride Crtab 20 Meq Tabcr) 20 meq PO DAILY [facility] Stop: 05/13/22 08:59 Last Admin: 04/14/22 08:09 Dose: 20 meq Senna/Docusate Sodium (Docusate Sodium/Senna 50/8.6mg Tab) 2 tab PO HS [facility] Stop: 05/12/22 20:59 Last Admin: 04/14/22 19:39 Dose: 2 tab Sertraline HCl (Sertraline Hcl 100 Mg Tablet) 200 mg PO QAM [facility] Stop: 05/13/22 08:59 Last Admin: 04/15/22 08:45 Dose: 200 mg Spironolactone (Spironolactone 25 Mg Tab) 25 mg PO DAILY [facility] Stop: 05/13/22 08:59 Last Admin: 04/15/22 08:45 Dose: 25 mg (1) Fall Encounter type: initial encounter Qualified Code(s): W19.XXXA - Unspecified fall, initial encounter (2) Closed fracture of right hip Encounter type: initial encounter Qualified Code(s): S72.001A - Fracture of unspecified part of neck of right femur, initial encounter for closed fracture (3) Closed pelvic fracture Encounter type: initial encounter Fracture alignment: without disruption of pelvic ring Pelvic bone location: multiple parts Qualified Code(s): S32.82XA - Multiple fractures of pelvis without disruption of pelvic ring, initial encounter for closed fracture
[2022-04-15] MEDS: LIDOCAINE 5% 1 PATCH TD SCH (08:46)
[2022-04-15 08:49] LABS: INR 1.6 (0.9-1.1); Prothrombin Time 16.9 Seconds (9.0-12.0)
[2022-04-15 08:52] LABS: Creatinine Clr Calc Pharmacy 12.8 ml/min; Est GFR (African American) 20.8 ml/min; Est GFR (Non-African American) 17.9 ml/min
[2022-04-15 08:53] LABS: BUN Creatinine Ratio 25.8 (10-20); Calcium 8.1 mg/dl (8.5-10.1); Magnesium 1.8 mg/dl (1.7-2.4); Phosphorus 5.3 mg/dl (2.5-4.9)
[2022-04-15] MEDS ORDERED: SODIUM CHLORIDE 0.9% 1000ML 1,000 ML IV SCH (11:00)
[2022-04-15] MEDS: POLYETHYLENE (MIRALAX) 17 GM PACK PO SCH (11:37)
[2022-04-15] MEDS: MAGNESIUM OXIDE 400 MG TAB PO SCH (13:17)
[2022-04-15] MEDS: ORTHO WARFARIN NOMOGRAM SCH (13:57)
[2022-04-15] MEDS ORDERED: WARFARIN SOD 2 MG TAB PO SCH (16:00)
[2022-04-15] MEDS ORDERED: WARFARIN SOD 4 MG TAB PO SCH (16:00)
[2022-04-15] MEDS: cefTRIAXone SODIUM 1,000 MG in DEXTROSE 5% AD-VAN 50 ML IV SCH (18:20)
[2022-04-15 20:01] VITALS: O2SAT 97
[2022-04-15] MEDS: MONTELUKAST SODIUM 10 MG TABLET PO SCH (20:05)
[2022-04-15] MEDS: DOCUSATE SODIUM/SENNA 50/8.6MG TAB PO SCH (20:08)
[2022-04-15] MEDS ORDERED: Nursing to Pharmacy Communication SCH (22:30)
[2022-04-16] MEDS: LORazepam 0.5 MG TAB PO SCH ×2 (05:49→15:14)
[2022-04-16] MEDS: ACETAMINOPHEN 500 MG TAB PO SCH ×2 (05:50→15:22)
[2022-04-16 06:53] LABS: Hematocrit (blood only) 25.2 % (37.0-47.0); Hemoglobin 8.8 g/dl (12.0-16.0); Mean Corpuscular Hemoglobin 27.4 pg (25.0-34.0); Mean Corpuscular Hgb Conc 34.9 g/dL (32.0-36.0); Mean Corpuscular Volume 78.5 fL (80.0-100.0); Mean Platelet Volume 12.6 fL (9.4-12.4); Platelet Count 338 K/uL (130-400); RDW Coefficient of Variation 15.6 % (11.5-14.5); RDW Standard Deviation 44.2 fL (36.4-46.3); Red Blood Count 3.21 M/uL (4.20-5.40); White Blood Count 12.88 K/ul (4.8-10.8)
--- NOTE | 2022-04-16 07:06 | Hospitalist Progress Note ---
Date of Service April 16, 2022 Assessment & Plan (1) Fall: (2) Closed fracture of right hip: (3) Closed pelvic fracture: Plan: - med surg with tele -Imaging - R Impacted fracture of the subcapital right femur, Right superior and inferior pubic ring fractures with surrounding hemorrhage, ondisplaced fracture of the right sacral ala, and Intramuscular hemorrhage is seen within the right obturator internus and right obturator externus muscles. Pt now s/p surgical repair (04/13/2022) - Subacute to acute T8 compression fracture with minimal retropulsion - may require bracing such as TSLO, conservative treatment per ortho - anticoagulation - per orthopedics -discussed with orthopedics, recommend warfarin, goal INR about 1.8. This was also discussed with pharmacy. ASA resumed - Supratherapeutic INR -Unfortunately patient's INR is now 7.1. P.o. vitamin K given. Warfarin on hold. We will recheck H&H and INR this afternoon Current hemoglobin is 8.8, unchanged/stable from yesterday - Started on ancef preoperatively, pt was on outpatient Bactrim for UTI x 5 days UTI - U cultx positive for E.coli - will continue with Abx - cont. w/ ceftriaxone - Maintain Her catheter for now and remove as soon as possible - Pain control, bowel regimen ordered - PT/OT consults - CM consulted for therapy placement afterwards since currently in [facility] Acute blood loss anemia, post-operative, expected Hgb on admission between 10 and 12 Post op - Hgb down to 8-9 Hgb has been stable from previous day, no need for blood transfusion STEPHANIE - Cr up at 2.7 - likely from poor oral intake, blood loss / surgery, etc. - ordered IVF but pt lost IV access yesterday - now IV access gained - encouraged PO intake - has poor appetite but was able to take some, now w/ nausea - monitor I/Os, and monitor BMP - Nephrology also consulted and discussed w/Dr. Rios (4) PAF (paroxysmal atrial fibrillation): Plan: - Currently rate controlled - not on blood thinner as outpt due to fall risk, now on warfarin d/t s/p hip surgery - Continue amiodarone and metoprolol for rate control (5) (HFpEF) heart failure with preserved ejection fraction: Plan: -History of such, CT of the chest evaluated personally, shows bilateral pleural effusions: moderate left and small right, appears similar to previous - continued lasix, spironolactone as BP allows - now on hold d/t STEPHANIE - will refer further to nephrology - cardiology consulted for pre-op eval - however pt taken to OR prior to be seen by cardiology - monitor I/O closely (6) Asthma-COPD overlap syndrome: Plan: - Denies current respiratory symptoms, continue prn inhalers - currently on RA DVT ppx: Teds, scds, warfarin CODE: DNR/DNI Dispo: From [facility], CM involved in DC Admission and Anticipated Discharge Date Admission Date: April 12, 2022 Subjective Pt seen in follow up of R hip fx, UTI Developed STEPHANIE after surg. procedure, Now also INR elev. at 7.1 Currently sitting up in bed Per staff, patient was working with PT, and became nauseous, feeling short of breath Vital signs obtained with me at the bedside, patient is also saturating 97% on room air at this time Now denies any shortness of breath Also denies any chest pain palpitations, abdominal pain, fever or chills Cr elevated and discussed w/ nephrology. Pt's son Juan updated at the bedside. Review of Systems Review of Systems: All systems reviewed & are unremarkable except as noted in Subjective Physical Exam Physical Exam: General: + thin, + frail elderly F in NAD Head: Normocephalic, atraumatic ENT: PERRL, EOMI, no pharyngeal exudate Chest: Diminished breath sounds at bases bilaterally, clear to auscultation otherwise Cardiac: irregularly irregular, + systolic murmur Abdominal: NABS x 4 quadrants, soft, nondistended, nontender to palpation Extremities: Generalized muscle atrophy in upper extremities, R leg with multiple areas of abrasions on the right lateral lower leg, trace edema in BLE around ankles, Surgical dressings applied to Right thigh Skin: warm , dry, extrem. as above, buttock wound (see image in EMR per wound care) Neuro: awake alert, able to answer simple questions appropriately, speech fluent, moves extremities Results & Data Results & Data ([facility]) Vital Signs (Past 12 Hours) Vital Signs Temp Pulse Resp BP Pulse Ox O2 Del Method 04/15/22 19:20 Room Air 04/15/22 22:11 153/80 H 04/15/22 19:59 36.2 C L 80 16 183/93 H 97 Room Air Laboratory Results 04/16/22 04/16/22 04/16/22 Range/Units 06:23 06:23 06:23 WBC 12.88 H (4.8-10.8) K/ul RBC 3.21 L (4.20-5.40) M/uL Hgb 8.8 L (12.0-16.0) g/dl Hct 25.2 L (37.0-47.0) % MCV 78.5 L (80.0-100.0) fL MCH 27.4 (25.0-34.0) pg MCHC 34.9 (32.0-36.0) g/dL RDW Std Deviation 44.2 (36.4-46.3) fL RDW Coeff of [place] 15.6 H (11.5-14.5) % Plt Count 338 (130-400) K/uL MPV 12.6 H (9.4-12.4) fL PT 68.2 H (9.0-12.0) Seconds INR 7.1 H* (0.9-1.1) Sodium 130 L (136-145) mmol/L Potassium 5.5 H (3.5-5.1) mmol/L Chloride 97 L (98-107) mmol/L Carbon Dioxide 20 L (21-32) mmol/L Anion Gap 13 H (3-11) BUN 71 H (6-23) mg/dl Creatinine 2.79 H D (0.6-1.2) mg/dl Est Cr Clr Drug Dosing 10.6 ml/min Est GFR ( Amer) 16.7 ml/min Est GFR (Non-Af Amer) 14.4 ml/min BUN/Creatinine Ratio 25.4 H (10-20) Glucose 109 H (70-99(Fasting)) mg/dl Calcium 8.6 (8.5-10.1) mg/dl Phosphorus 6.5 H (2.5-4.9) mg/dl Magnesium 2.2 (1.7-2.4) mg/dl Medications Administered Current Inpatient Medications Acetaminophen (Acetaminophen 500 Mg Tab) 1,000 mg PO Q8H [facility] Stop: 05/12/22 18:07 Last Admin: 04/16/22 05:50 Dose: 1,000 mg Al Hydrox/Mg Hydrox/Simethicone (Aluminum/Magnesium Susp 30 Ml Udc) 15 ml PO Q4H PRN PRN Reason: Heartburn Stop: 05/13/22 15:04 Amiodarone HCl (Amiodarone 200 Mg Tab) 200 mg PO QAM [facility] Stop: 05/13/22 08:59 Last Admin: 04/15/22 08:45 Dose: 200 mg Ascorbic Acid (Ascorbic Acid 500 Mg Tab) 500 mg PO BIDM [facility] Stop: 05/13/22 16:59 Last Admin: 04/15/22 17:11 Dose: 500 mg Aspirin ([facility]in 81 Mg [facility]ab) [facility] Stop: 05/14/22 09:14 Last Admin: 04/15/22 08:45 Dose: 81 mg Bisacodyl (Bisacodyl 10 Mg Supp) 10 mg [place] DAILY PRN PRN Reason: Constipation Stop: 05/12/22 18:07 Bupropion HCl (Bupropion Sr 100 Mg Tabcr) 100 mg PO DAILY [facility] Stop: 05/13/22 08:59 Last Admin: 04/15/22 08:44 Dose: 100 mg Diphenhydramine HCl (Diphenhydramine 50 Mg/Ml Vial) 25 mg IV Q8H PRN PRN Reason: Itching Stop: 05/13/22 15:04 Donepezil HCl (Donepezil Hcl 5 Mg Tab) 5 mg PO BID [facility] Stop: 05/12/22 20:59 Last Admin: 04/15/22 20:06 Dose: 5 mg Famotidine (Famotidine 20 Mg Tab) 20 mg PO BID [facility] Stop: 05/12/22 20:59 Last Admin: 04/15/22 20:08 Dose: 20 mg Ferrous Sulfate (Ferrous Sulfate 325 Mg Tab) 325 mg PO BID [facility] Stop: 05/12/22 20:59 Last Admin: 04/15/22 20:05 Dose: 325 mg Fluticasone Propionate (Fluticasone Propionate Na Spr 16 Gm Btl) 2 sprays CLEMENTINA QAM [facility] Stop: 05/12/22 18:07 Last Admin: 04/15/22 08:45 Dose: 2 sprays Furosemide (Furosemide 40 Mg Tab) 40 mg PO DAILY [facility] Stop: 05/13/22 08:59 Last Admin: 04/15/22 08:45 Dose: 40 mg Hydromorphone HCl (Hydromorphone Inj 0.5 Mg/0.5 Ml Syr) 0.25 mg IV Q2H PRN PRN Reason: Pain or Pre PT Stop: 04/27/22 15:04 Sodium Chloride (Nss 1000ml) 1,000 mls @ 80 mls/hr IV .[id number] [facility] Stop: 05/15/22 10:59 Last Infusion: 04/15/22 18:21 Dose: Infused Levalbuterol HCl (Levalbuterol Hcl 1.25 Mg/3 Ml Neb) 1.25 mg NEB Q4R PRN; Protocol PRN Reason: shortness of breath or wheezing Stop: 05/12/22 18:07 Lidocaine (L[facility]ocaine 5% 1 Patch) [facility] Stop: 05/13/22 08:59 Last Admin: 04/15/22 08:46 Dose: Not Given Lorazepam (Lorazepam 0.5 Mg Tab) 0.5 mg PO 0630,1500,2000 [facility] Stop: 05/12/22 19:59 Last Admin: 04/16/22 05:49 Dose: 0.5 mg Magnesium Hydroxide (Magnesium Hydroxide Susp 30 Ml Udc) 30 ml PO DAILY PRN PRN Reason: Constipation Stop: 05/12/22 18:07 Magnesium Oxide (Magnesium Oxide 400 Mg Tab) [facility] Stop: 05/15/22 11:14 Last Admin: 04/15/22 13:17 Dose: 400 mg Metoclopramide HCl (Metoclopramide Hcl Inj 5 Mg/Ml 2 Ml Vial) 10 mg IV Q6H PRN PRN Reason: Nausea And Vomiting Stop: 05/13/22 15:04 Last Admin: 04/14/22 19:39 Dose: 10 mg Metoprolol Tartrate (Metoprolol Tartrate 25 Mg Tab) 12.5 mg PO BID [facility] Stop: 05/12/22 20:59 Last Admin: 04/15/22 20:05 Dose: 12.5 mg Miscellaneous (Remove Lidoderm Patch) 1 each N/A DAILY@2100 [facility] Stop: 05/13/22 20:59 Last Admin: 04/15/22 19:49 Dose: Not Given Miscellaneous Information (Ortho Warfarin Nomogram) 1 each N/A DAILY@1400 [facility]; Protocol Stop: 05/13/22 15:04 Last Admin: 04/15/22 13:57 Dose: Not Given Montelukast Sodium (Montelukast Sodium 10 Mg Tablet) 10 mg PO HS [facility] Stop: 05/12/22 20:59 Last Admin: 04/15/22 20:05 Dose: 10 mg Multivitamins (Multivitamin Tab) 1 tab PO QAM [facility] Stop: 05/14/22 08:59 Last Admin: 04/15/22 08:45 Dose: 1 tab Naloxone HCl (Naloxone Hcl 0.4 Mg/1 Ml Vial/Carp) 0.1 mg IV UD PRN PRN Reason: Opiate Overdose Stop: 05/12/22 18:07 Oxycodone HCl (Oxycodone Hcl Ir 5 Mg Tab (Immediate Release)) 5 mg PO Q6H PRN PRN Reason: Moderate Pain Stop: 04/26/22 18:10 Last Admin: 04/14/22 14:41 Dose: 5 mg Pantoprazole Sodium (Pantoprazole 40 Mg Tab) 40 mg PO BID [facility] Stop: 05/12/22 20:59 Last Admin: 04/15/22 20:06 Dose: 40 mg Polyethylene Glycol (Polyethylene (Miralax) 17 Gm Pack) 17 gm PO DAILY [facility] Stop: 05/15/22 10:59 Last Admin: 04/15/22 11:37 Dose: 17 gm Potassium Chloride (Potassium Chloride Crtab 20 Meq Tabcr) 20 meq PO DAILY [facility] Stop: 05/13/22 08:59 Last Admin: 04/14/22 08:09 Dose: 20 meq Senna/Docusate Sodium (Docusate Sodium/Senna 50/8.6mg Tab) 2 tab PO HS [facility] Stop: 05/12/22 20:59 Last Admin: 04/15/22 20:08 Dose: 2 tab Sertraline HCl (Sertraline Hcl 100 Mg Tablet) 200 mg PO QAM [facility] Stop: 05/13/22 08:59 Last Admin: 04/15/22 08:45 Dose: 200 mg Spironolactone (Spironolactone 25 Mg Tab) 25 mg PO DAILY [facility] Stop: 05/13/22 08:59 Last Admin: 04/15/22 08:45 Dose: 25 mg (1) Fall Encounter type: initial encounter Qualified Code(s): W19.XXXA - Unspecified fall, initial encounter (2) Closed fracture of right hip Encounter type: initial encounter Qualified Code(s): S72.001A - Fracture of unspecified part of neck of right femur, initial encounter for closed fracture (3) Closed pelvic fracture Encounter type: initial encounter Fracture alignment: without disruption of pelvic ring Pelvic bone location: multiple parts Qualified Code(s): S32.82XA - Multiple fractures of pelvis without disruption of pelvic ring, initial encounter for closed fracture
[2022-04-16 07:20] LABS: BUN Creatinine Ratio 25.4 (10-20); Calcium 8.6 mg/dl (8.5-10.1); Creatinine Clr Calc Pharmacy 10.6 ml/min; Est GFR (African American) 16.7 ml/min; Est GFR (Non-African American) 14.4 ml/min; Magnesium 2.2 mg/dl (1.7-2.4); Phosphorus 6.5 mg/dl (2.5-4.9); Potassium 5.5 mmol/L (3.5-5.1)
[2022-04-16 07:58] LABS: Prothrombin Time 68.2 Seconds (9.0-12.0)
[2022-04-16 08:13] LABS: INR 7.1 (0.9-1.1)
[2022-04-16] MEDS ORDERED: PHYTONADIONE 5 MG TAB PO STA (08:17)
--- NOTE | 2022-04-16 10:19 | XRay Report ---
XR chest 1V portable HISTORY: 89 years-old Female hyponatremia, renal failure > check for pulm edema acute renal failure COMPARISON: Chest CT 04/12/2022 TECHNIQUE: AP view of the chest FINDINGS: Cardiomediastinal and hilar silhouettes are within normal limits. Small layering pleural effusions. P ulmonary vascular congestion. Mild left basilar densities. No pneumothorax identified. Spiculated rig ht apical opacity redemonstrated. Degenerative changes of the shoulders and spine. IMPRESSION: 1. Cardiomegaly with pulmonary vascular congestion. 2. Small layering pleural effusions with mild left basilar atelectasis. 3. Irregular right upper lobe nodular opacity is better characterized on the comparison chest CT. ACT 112: Negative or not required by law. The above report was generated using voice recognition software. It may contain grammatical, syntax o r spelling errors. Electronically signed by: Tony Zaragoza M.D. 04/16/2022 10:17 AM
[2022-04-16] MEDS: MAGNESIUM OXIDE 400 MG TAB PO SCH (10:40)
[2022-04-16] MEDS: AMIODARONE 200 MG TAB PO SCH (10:40)
[2022-04-16] MEDS: DONEPEZIL HCL 5 MG TAB PO SCH (10:40)
[2022-04-16] MEDS: PANTOprazole 40 MG TAB PO SCH (10:40)
[2022-04-16] MEDS: MULTIVITAMIN TAB PO SCH (10:41)
[2022-04-16] MEDS: FERROUS SULFATE 325 MG TAB PO SCH (10:41)
[2022-04-16] MEDS: SERTRALINE HCL 100 MG TABLET PO SCH (10:41)
[2022-04-16] MEDS: FLUTICASONE PROPIONATE NA SPR 16 GM BTL NAE SCH (10:41)
[2022-04-16] MEDS: METOPROLOL TARTRATE 25 MG TAB PO SCH (10:42)
[2022-04-16] MEDS: ASPIRIN 81 MG ECTAB PO SCH (10:42)
[2022-04-16] MEDS: buPROPion SR 100 MG TABCR PO SCH (10:42)
[2022-04-16] MEDS: ASCORBIC ACID 500 MG TAB PO SCH (10:43)
[2022-04-16] MEDS: FAMOTIDINE 20 MG TAB PO SCH (10:45)
[2022-04-16] MEDS: POLYETHYLENE (MIRALAX) 17 GM PACK PO SCH (10:48)
[2022-04-16] MEDS: LIDOCAINE 5% 1 PATCH TD SCH (10:49)
--- NOTE | 2022-04-16 12:00 | Nephrology Consultation ---
Date of Consultation April 16, 2022 Assessment & Plan (1) Acute renal failure: Stage III nonoliguric acute kidney injury with a baseline creatinine of 0.8. In this elderly and cachectic patient, creatinine of 2.8 is exceptionally high. Ordered chest x-ray, urinalysis -Agree with holding spironolactone for now. Given chest x-ray findings, crackles on exam, and hyperkalemia may need to revisit Lasix however>> will give 10 mg IV x 2 doses 4 h apart Daily basic metabolic panel -reimage kidneys if creatinine worsens > defer to primary whether CT or renal u/s >has garcia versus pureflow (2) Electrolyte and fluid disorder: Hyperkalemia, hyponatremia >>suspect hypervolemic hyponatremia Ordered hyponatremia studies which are pending Ordered this morning low potassium/dialysis diet to start with midday meal if at all possible Continue to hold potassium supplements as above lasix -recheck bmp in AM History of Present Illness Reason for Consultation: STEPHANIE Requesting Physician: Dr Painter Attending Physician: Ayaz Painter MD History of Present Illness 89-year-old female whom I am asked to evaluate for acute kidney injury was admitted April 12 with closed pelvic and right hip fractures after a fall. On April 13, she underwent right hip replacement. Her baseline creatinine is 0.8 and she was at baseline on admission. Since admission her creatinine has steadily trended up to peak at 2.8 today. In the same timeframe, sodium down trending to 130 today. 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 This is her fifth hospital admission in the past 9 months, including 2 admissions for falls and 2 for acute diastolic heart failure exacerbations. The patient was on her fifth day of Bactrim as therapy for UTI on arrival to the hospital. She has had no IV contrast. No sustained extremes of blood pressure. She is on room air. She takes 40 mg daily Lasix and 25 mg spironolactone daily as an outpatient. These medications were continued from April 13 through . 20 mEq daily potassium supplements were last dosed on April 14. She is 2.3 L positive since surgery. Her urine culture from admission grew E. coli. Patient denies uncontrolled pain. Does endorse poor appetite. Some mild shortness of breath. No edema that she knows about. Denies new or worrisome voiding concerns such as gross hematuria or dysuria. Allergies Allergy/AdvReac Type Severity Reaction Status Date / Time bee venom protein (honey bee) Allergy Severe ANAPHYLAXIS Verified 12/14/21 01:31 Home Medications Medication Instructions Recorded Confirmed Type aspirin 81 mg tablet,delayed 81 mg PO QAM 04/30/21 04/12/22 History release montelukast 10 mg tablet 10 mg PO HS 04/30/21 04/12/22 History docusate sodium 100 mg capsule 100 mg PO BID 06/24/21 04/12/22 History (Colace) donepezil 5 mg tablet 5 mg PO BID 06/24/21 04/12/22 History lorazepam 0.5 mg tablet 0.5 mg PO TID 06/24/21 04/12/22 History sertraline 100 mg tablet 200 mg PO QAM 07/06/21 04/12/22 History amiodarone 200 mg tablet 200 mg PO QAM 10/02/21 04/12/22 History metoprolol tartrate 25 mg tablet 12.5 mg PO BID 10/02/21 04/12/22 History pantoprazole 40 mg tablet,delayed 40 mg PO BID 10/02/21 04/12/22 History release acetaminophen 325 mg tablet 650 mg PO Q4H PRN PAIN/FEVER 12/14/21 04/12/22 History (Tylenol) epinephrine 0.3 mg/0.3 mL 0.3 mg IM DIRECTED PRN Allergic 12/14/21 04/12/22 History injection, auto-injector (EpiPen) Reaction lidocaine 5 % topical patch 1 patch transdermal QAM 12/14/21 04/12/22 History ferrous sulfate 325 mg (65 mg 325 mg PO BID 30 days #60 tabs 12/16/21 04/12/22 Rx iron) tablet levalbuterol HCl 1.25 mg/3 mL 1.25 mg (3 mL) NEB Q4H PRN 12/16/21 04/12/22 Rx solution for nebulization shortness of breath or wheezing #36 mL fluticasone propionate 50 2 spray CLEMENTINA Q24H #1 g 01/24/22 04/12/22 Rx mcg/actuation nasal spray,suspension furosemide 20 mg tablet 40 mg PO DAILY #60 tabs 03/09/22 04/12/22 Rx potassium chloride 10 mEq 20 meq PO DAILY #30 tabs 03/09/22 04/12/22 Rx tablet,extended release(part/cryst) spironolactone 25 mg tablet 25 mg PO DAILY #30 tabs 03/09/22 04/12/22 Rx bupropion HCl 100 mg tablet,12 hr 100 mg PO DAILY 04/12/22 04/12/22 History sustained-release famotidine 20 mg tablet 20 mg PO BID 04/12/22 04/12/22 History guaifenesin 600 mg tablet, 400 mg PO Q12 PRN Congestion 04/12/22 04/12/22 History extended release 12 hr (Mucinex) nitrofurantoin monohyd/m-cryst 100 mg PO BID 04/12/22 04/12/22 History Patient History Medical History (HFpEF) heart failure with preserved ejection fraction Abnormal CT of the chest Acute on chronic heart failure with preserved ejection fraction Anemia of chronic disease Anxiety Anxiety Asthma USING RESCUE INHALER FREQUENTLY/DAILY Asthma-COPD overlap syndrome Cancer BREAST CANCER-LEFT MASTECTOMY Chronic obstructive pulmonary disease COPD (chronic obstructive pulmonary disease) COVID-19 Deep vein thrombosis 15 YEARS AGO S/P LEG SURGERY Degenerative disc disease Dysphagia HX ESOPHAGEAL STRETCHING Fall GERD (gastroesophageal reflux disease) History of pulmonary embolism HTN (hypertension) Hypertension Osteoarthritis PAF (paroxysmal atrial fibrillation) PAF (paroxysmal atrial fibrillation) Prolapsed bladder Pulmonary nodule, right Rectal bleeding Senile degeneration of brain T12 burst fracture Surgical History History of cataract surgery RT/LEFT History of colonoscopy History of esophagogastroduodenoscopy (EGD) History of mastectomy LEFT (NO BP/LAB DRAWS) History of tonsillectomy History of tooth extraction History of total hysterectomy with bilateral salpingo-oophorectomy (BSO) History of total knee replacement LEFT/RT Family History Other Alzheimer disease Stroke Social History (Reviewed 04/12/22 @ 17:09 by MARCELA Perez Smoking Status: Never smoker Second Hand Exposure: Yes (AT WORK); Hx Alcohol Use: No Hx Substance Use: No Preferred Language: Japanese Communication Ability: Effective Court Collections Officer Required: No Beliefs That Will Affect Care: None marital status: / Current Living Situation: Personal Care Facility Current Living Situation Comment: [facility] How many Children do You have: 1 Feels Safe at Home: Yes Safety Concerns: Feels Safe At This Time Childhood Exposure to Second-Hand Smoke: Yes Dental Care, Regularly: Yes Assistive Devices: Walker Review of Systems Review of Systems: All systems reviewed & are unremarkable except as noted in HPI & below Physical Exam Constitutional: well developed, + cachectic, + altered mental status (Psychomotor slowing), + frail appearing and cooperative; no acute distress Eyes: EOM intact bilaterally ENMT: Ears: no external ear abnormality Nose: no external nose abnormality Mouth: + dry oral mucous membranes (Exceptionally dry) Neck: no nuchal rigidity Respiratory: normal respiratory effort and + tachypneic; no respiratory distress, no labored breathing and no cough Auscultation: + diminished lung sounds and + crackles (Bibasilar) Gastrointestinal (Abdomen): Inspection/Auscultation: normal bowel sounds Percussion/Palpation: abdomen soft; abdomen nontender Musculoskeletal: Extremities: + abnormal strength Skin: no rashes, warm and dry Neurologic: pereyra, fluent speech, no tremor Psychiatric: Orientation: alert and oriented to person Insight: + limited insight Results & Data ([facility]) Vital Signs (Past 12 Hours) Vital Signs Temp Pulse Resp BP Pulse Ox O2 Del Method 04/16/22 10:40 70 134/84 04/16/22 07:22 36.4 C L 75 16 160/68 H 97 Room Air Laboratory Results 04/16/22 06:23 04/16/22 06:23 Diagnostic Findings Chest x-ray today 1. Cardiomegaly with pulmonary vascular congestion. 2. Small layering pleural effusions with mild left basilar atelectasis. 3. Irregular right upper lobe nodular opacity is better characterized on the comparison chest CT. CT abdomen pelvis Noncon at admission Lung bases: The heart is mildly enlarged and without pericardial effusion. The m itral annulus is densely calcified. There are small right and moderate left pleural effusions with dependent scarring/atelectasis. There are scattered calcified granulomas. Liver: Evaluation of the liver is degraded by streak artifact. The unenhanced liver is normal in size, contour, and attenuation. There is no intrahepatic biliary ductal dilatation. A calcified granuloma is seen in the left lobe. Gallbladder: There are layering gallstones with no CT evidence of acute cholecystitis. Spleen: Normal in size and attenuation. There are numerous calcified splenic granulomas. Pancreas: Unremarkable. Adrenal glands: Unremarkable. Kidneys: The unenhanced kidneys are normal in size and without hydronephrosis. There are least 2 punctate nonobstructing right calculi. No left renal calculi are seen. There is no evidence of contour deforming renal mass lesion. Abdominal vasculature: The abdominal aorta is normal in course and caliber noting advanced atherosclerotic calcification. Bowel: There is mild to moderate colonic fecal retention. No bowel obstruction is seen. The appendix is not visualized. Peritoneum: There is no intraperitoneal free air or abdominal ascites. Lymphadenopathy: None. Pelvic viscera: The bladder is mildly distended but otherwise normal in appearance. The uterus is surgically absent. No adnexal lesion is seen. Skeletal structures: The skeletal structures are osteopenic. There is an impacted subcapital fracture of the right proximal femur with surrounding hemorrhage. There are comminuted fractures of the right superior and inferior pubic ring with surrounding hemorrhage. The inferior pubic ring fracture is displaced. There is a nondisplaced fracture of the right sacral ala. No lytic or blastic lesions are seen. There is a chronic sacral fracture the level of S4. There are chronic compression deformities of T11 and T12 with evidence of previous vertebroplasty. Retropulsed fragments are similar to previous. There are mild chronic superior endplate compression deformities of L4 and L5. Moderate lumbosacral spondylosis is observed. Soft tissues: The patient is cachectic. There is intramuscular hemorrhage within the right obturator internus and obturator externus muscles. IMPRESSION: 1. Significantly suboptimal examination without IV contrast. There is also streak and motion artifact. 2. Impacted fracture of the subcapital right femur. 3. Right superior and inferior pubic ring fractures with surrounding hemorrhage. 4. Nondisplaced fracture of the right sacral ala. 5. Intramuscular hemorrhage is seen within the right obturator internus and right obturator externus muscles. 6. There is no evidence of solid injury in the abdomen or pelvis on this unen hanced examination. 7. Small right and moderate left pleural effusions. 8. Cardiomegaly. 9. Cholelithiasis. 10. Right-sided nephrolithiasis. 11. Additional findings as above.
--- NOTE | 2022-04-16 12:28 | Progress Notes ---
SUBJECTIVE: Postop check status post right bipolar cemented endoprosthesis for femoral neck fracture. At this point in time, she is sitting up in bed. Denies any real pain. She denies any chest pain, shortness of breath, fever, chills, nausea, vomiting or headache. OBJECTIVE: VITAL SIGNS: Stable. She is afebrile. Neurovascular check, femoral sciatic nerve is normal. Hip is located. Wound dressing clean, dry and intact. LABORATORY DATA: Hematocrit is stable. At this point in time, no need to keep repeating this. Of note is that her INR is high. RECOMMENDATIONS: Suggest discontinuing the Coumadin and place her on a baby aspirin when the INR normalizes. Suggest repeating INR again later today and it is drifting up, suggest giving her some vitamin K if that has not been ordered already. Follow up with us in 2 weeks. Keep sravani in for at least 2 weeks based on poor nutrition. Pressure dressing at all times. Management for pressure sores. Job ID: [id number] phone call from the floor nurse Lacey at 714 pm....patient clinical status became critical but care kept at hospice level per patient and family wishes. Discussed with son Soren who thanked us for the care and stated they were all comfortable with the decision to proceed with comfort measures only. SOFI
--- NOTE | 2022-04-16 12:48 | XRay Report ---
KUB HISTORY: Acute abdominal pain with nausea nausea/bomiting COMPARISON: CT 04/12/2022 FINDINGS: Calcified granulomata of the spleen. Nondilated air-filled loops of large and small bowel. Unchanged right upper abdominal calcifications. The previous noted punctate right renal calculi are n ot definitively seen on today's study. No ureteral calculi identified. No renal calculi. No ureteral calculi. No pneumoperitoneum or pneumatosis. Right hip arthroplasty with overlying skin sravani. No fracture. IMPRESSION: Nonobstructive bowel gas pattern. Air-filled loops of large and small bowel may represent an ileus. ACT 112: Negative or not required by law. The above report was generated using voice recognition software. It may contain grammatical, syntax o r spelling errors. Electronically signed by: Tony Zaragoza M.D. 04/16/2022 12:46 PM
[2022-04-16] MEDS ORDERED: cefTRIAXone SODIUM 1,000 MG in DEXTROSE 5% AD-VAN 50 ML IV SCH (13:00)
[2022-04-16 13:22] LABS: Appearance Urine Turbid (Clear); Blood Urine 3+ (Negative); Color Urine Dark Yellow; Epithelial Cell Urine Auto >30 /lpf (0-5); Glucose Urine UA Negative (Negative); Ketones Urine Trace (Negative); Leukocyte Esterase Urine 2+ (Negative); Nitrite Urine Negative (Negative); Protein Urine 2+ (Negative); Specific Gravity Urine 1.019 (1.000-1.030); Urobilinogen Urine Negative (Negative); WBC Urine Automated >30 /hpf (0-5)
[2022-04-16 13:39] LABS: BUN Creatinine Ratio 24.8 (10-20); Calcium 8.9 mg/dl (8.5-10.1); Creatinine Clr Calc Pharmacy 9.6 ml/min; Est GFR (African American) 14.9 ml/min; Est GFR (Non-African American) 12.9 ml/min; Potassium 5.9 mmol/L (3.5-5.1)
[2022-04-16] MEDS ORDERED: FUROSEMIDE INJ 20 MG/2 ML VIAL IV SCH (13:45)
[2022-04-16 13:50] LABS: Bilirubin Urine 1+ (Negative)
[2022-04-16 14:10] LABS: RBC Urine Automated >30 /hpf (0-4)
[2022-04-16 14:11] LABS: Bacteria Urine Automated 2+ (Negative)
[2022-04-16 15:05] VITALS: BP 126/80; PULSE 66
[2022-04-16] MEDS ORDERED: bisacodyL 10 MG SUPP PR STA (16:18)
[2022-04-16 16:51] LABS: Hematocrit (blood only) 25.3 % (37.0-47.0); Hemoglobin 8.5 g/dl (12.0-16.0)
[2022-04-16 17:11] VITALS: TEMP 95.4
[2022-04-16] MEDS ORDERED: STAT IV STA ×2 (18:15→18:16)
[2022-04-16] MEDS ORDERED: CALCIUM GLUCONATE 10% 1,000 MG in DEXTROSE 5% 50 ML IV ONE (18:15)
[2022-04-16] MEDS ORDERED: FUROSEMIDE INJ 20 MG/2 ML VIAL IV ONE (18:19)
[2022-04-16] MEDS ORDERED: INSULIN HUMAN REGULAR PER UNIT 5 UNITS in SYRINGE 4.95 ML IV STA (18:23)
[2022-04-16] MEDS ORDERED: INSULIN REGULAR 250 UNITS in SODIUM CHLORIDE 0.9% 247.5 ML IV SCH (18:30)
[2022-04-16 18:50] LABS: iSTAT Creatinine 3.8 mg/dl (0.6-1.3); iSTAT Hemoglobin 9.2 g/dl (12.0-16.0); iSTAT Ionized Calcium 1.07 mmol/l (1.12-1.32); iSTAT Potassium 7.3 mmol/L (3.3-5.0)
[2022-04-16 18:57] LABS: Prothrombin Time > 90.0 Seconds (9.0-12.0)
[2022-04-16 18:59] LABS: INR > 9.6 (0.9-1.1)
--- NOTE | 2022-04-16 19:37 | Discharge Summary ---
Date of Service April 16, 2022 Admission HPI Per Admitting Provider This is an 89 yo F with PMHx including left breast cancer s/p left radical mastectomy, radiation pneumonitis, concerning right upper lobe lesion for possible carcinoma s/p empiric radiation, asthmaCOPD, HTN, HFpEF, Senile Degeneration of the Brain, pAF, and anemia of chronic disease. She has had many inpatient hospitalizations: 06/24 to 06/29/2021, 07/06-07/09 for SOB and secondary to acute HFpEF, underwent thoracentesis on right at 800 mL in 06/2021 and it was transudative and negative for malignancy. 11/12/21 - 11/18/21 for acute on chronic CHF also with testing positive for COVID- 19 for which she completed an inpatient course of steroids and Remdesivir. 11/29/21- status post fall 01/12-01/24 for pneumonia Her son Han, and [id number] Willian, are present with her at bedside. She is able to support her own history. Due to senile degeneration of the brain is a poor historian but is able to communicate and participate in her goals of care. She reports that she has good control on her pain currently, denies any numbness, sharp radicular pain, only whenever she moves her leg. This occurred this morning at [facility] while she was ambulating to the bathroom with her walker. Patient denies any presyncopal symptoms including lightheadedness, dizziness etc. she denies any shortness of breath or chest pain. Patient does not wear any supplemental O2 at baseline however here in the ER is on 2L via NC. Patient denies any recent respiratory symptoms. Of note she has been being treated with Bactrim for the past 5 days for UTI, she denies any urinary symptoms today. Pt family notes that they would like to proceed with surgery if she is a candidate as she was able to walk herself prior to this. Pt herself notes she wants to maintain her mobility if possible. Pt notes she has been able to walk from her room to the dining facility and feels tired after doing so, but is able to. Pt notes recent weight loss and is drinking boost once daily. This morning she ate breakfast and took all her scheduled medications as directed. Admission Exam Per Admitting Provider General: awake, alert, no apparent distress, + thin, + frail Head: Normocephalic, atraumatic ENT: PERRL, EOMI, no pharyngeal exudate, mucous membranes slightly dry Chest: Diminished breath sounds at bases bilaterally, clear to auscultation otherwise, on room air, no adventitious breath sounds Cardiac: irregularly irregular, + systolic murmur, no JVD, normal peripheral pulses, good capillary refill Abdominal: NABS x 4 quadrants, soft, nondistended, nontender to palpation, no rebound or guarding Extremities: Generalized muscle atrophy in upper extremities, R leg with multiple areas of abrasions on the right lateral lower leg, trace edema in BLE around ankles, R olecranon with skin tear, otherwise normal inspection, no peripheral edema or erythema, calfs nontender to palpation Psych: Normal mood and affect Neuro: AAO x 3, strength intact bilaterally and rated 4/5, no motor deficits, speech is clear, no peripheral sensory deficits Principal Diagnosis R hip fracture s/p surgical repair STEPHANIE, hyperkalemia UTI Supratherapeutic INR Discharge Exam Patient pronounced at 19:07 Discharge Data Allergies Allergy/AdvReac Type Severity Reaction Status Date / Time bee venom protein (honey bee) Allergy Severe ANAPHYLAXIS Verified 12/14/21 01:31 Consultations 04/12/22 15:04 ED Decision to Admit Stat 04/12/22 16:41 Consult Orthopedic Surgery Stat 04/12/22 17:45 Consult Cardiology Routine 04/12/22 18:08 Consult Orthopedic Surgery Routine 04/16/22 08:19 Consult Nephrology Routine Procedures Performed Operation Date: 04/13/22 09:40 Actual Procedures p Right Hip Hemiarthroplasty, Cemented(Right) - Louie Winslow MD Ordered Studies 04/12/22 12:30 CT cervical spine wo con Stat FINDINGS: Numerous cystic changes are seen in the dens, however there is no evidence of acute fracture. Degenerative changes are seen in the visualized spine. Chondrocalcinosis is noted there is calcification of the transverse ligament. The alignment is normal. Biapical scarring is seen in the lungs. IMPRESSION: Degenerative changes without evidence of acute bony injury. CT head/brain wo con Stat FINDINGS: No acute intracranial hemorrhage, midline shift or mass effect is present. White matter hypodensity suggests small vessel disease. 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 The ventricular system is unremarkable. The basal cisterns are patent. No extra-axial collections are present. There are no findings to suggest acute dural sinus thrombosis or acute territorial infarct. No significant calvarial abnormalities are present. Visualized portions of the sinuses and mastoid air cells are clear. IMPRESSION: 1. No acute intracranial findings. 2. No acute calvarial fracture. 04/12/22 13:38 CT abd pelvis wo con Stat FINDINGS: Lung bases: The heart is mildly enlarged and without pericardial effusion. The mitral annulus is densely calcified. There are small right and moderate left pleural effusions with dependent scarring/atelectasis. There are scattered calcified granulomas. Liver: Evaluation of the liver is degraded by streak artifact. The unenhanced liver is normal in size, contour, and attenuation. There is no intrahepatic biliary ductal dilatation. A calcified granuloma is seen in the left lobe. Gallbladder: There are layering gallstones with no CT evidence of acute cholecystitis. Spleen: Normal in size and attenuation. There are numerous calcified splenic granulomas. Pancreas: Unremarkable. Adrenal glands: Unremarkable. Kidneys: The unenhanced kidneys are normal in size and without hydronephrosis. There are least 2 punctate nonobstructing right calculi. No left renal calculi are seen. There is no evidence of contour deforming renal mass lesion. Abdominal vasculature: The abdominal aorta is normal in course and caliber noting advanced atherosclerotic calcification. Bowel: There is mild to moderate colonic fecal retention. No bowel obstruction is seen. The appendix is not visualized. Peritoneum: There is no intraperitoneal free air or abdominal ascites. Lymphadenopathy: None. Pelvic viscera: The bladder is mildly distended but otherwise normal in appearance. The uterus is surgically absent. No adnexal lesion is seen. Skeletal structures: The skeletal structures are osteopenic. There is an impacted subcapital fracture of the right proximal femur with surrounding hemorrhage. There are comminuted fractures of the right superior and inferior pubic ring with surrounding hemorrhage. The inferior pubic ring fracture is displaced. There is a nondisplaced fracture of the right sacral ala. No lytic or blastic lesions are seen. There is a chronic sacral fracture the level of S4. There are chronic compression deformities of T11 and T12 with evidence of prev ious vertebroplasty. Retropulsed fragments are similar to previous. There are mild chronic superior endplate compression deformities of L4 and L5. Moderate lumbosacral spondylosis is observed. Soft tissues: The patient is cachectic. There is intramuscular hemorrhage within the right obturator internus and obturator externus muscles. IMPRESSION: 1. Significantly suboptimal examination without IV contrast. There is also streak and motion artifact. 2. Impacted fracture of the subcapital right femur. 3. Right superior and inferior pubic ring fractures with surrounding hemorrhage. 4. Nondisplaced fracture of the right sacral ala. 5. Intramuscular hemorrhage is seen within the right obturator internus and right obturator externus muscles. 6. There is no evidence of solid injury in the abdomen or pelvis on this unenhanced examination. 7. Small right and moderate left pleural effusions. 8. Cardiomegaly. 9. Cholelithiasis. 10. Right-sided nephrolithiasis. 11. Additional findings as above. 04/12/22 13:39 CT chest diagnostic wo con Stat FINDINGS: Thoracic aorta is suboptimally assessed on this unenhanced exam but there is no mediastinal hematoma. Cardiomegaly is noted with extensive mitral annular calcification. There is no pericardial effusion. Moderate left and small right pleural effusions are similar to chest CT January 13, 2022. There is no pneumothorax. A 3.8 cm right upper lobe irregular density is unchanged. This favors post treatment change. There is interlobular septal thickening with mild groundglass opacities within the lungs. Subpleural ground glass opacities are also present. Nondisplaced fracture of the medial right scapula remains unchanged. Old T11 and T12 compression fracture status post vertebroplasty are noted. A moderate T8 compression fracture with 40% loss of vertebral body height and minimal retropulsion is new since prior chest CT. Old T12 compression fracture is noted. No acute rib fractures are present. Is no thoracic lymphadenopathy. IMPRESSION: 1. Moderate T8 compression fracture with minimal retropulsion. This is age indeterminate but new since CT of January 13, 2022 and likely subacute to acute. 2. No additional acute traumatic findings within the chest. 3. Evidence for pulmonary edema with moderate left and small right pleural effusions which are similar to prior chest CT. Hospital Course (1) Fall: (2) Closed fracture of right hip: (3) Closed pelvic fracture: 18 PM Patient became unresponsive this evening, while family at the bedside. Giancarlo blevins was called. On my evaluation, patient breathing, however not responsive. Stat EKG was ordered. High suspicion for severe hyperkalemia (besides other possible causes given recent surgery, supratherapeutic INT etc.), as patient in renal failure and already hyperkalemic. Calcium gluconate ordered, stat BMP, mag phos, troponin, lactate ordered. Repeat INR already ordered, however results unavailable. EKG showing bradycardia and peaked T waves. IV insulin and IV Lasix also given. bicarb given. I-STAT potassium 7.3. Pulse ox not able to obtain/read oxygen saturation. Placed on telemonitor at the bedside. (Patient was supposed to be transferred to telemetry floor earlier today, however this has not happened yet). Patient not responding to intervention. Family at the bedside, and confirms DNR/DNI status. As patient not responding to intervention, family decided to cease any more medical treatment/intervention, and allowed family to be with the patient at the bedside. Notified by nursing staff, that patient ceased to breathe at 1907. ------- -Imaging - R Impacted fracture of the subcapital right femur, Right superior and inferior pubic ring fractures with surrounding hemorrhage, ondisplaced fracture of the right sacral ala, and Intramuscular hemorrhage is seen within the right obturator internus and right obturator externus muscles. Pt now s/p surgical repair (04/13/2022) - Subacute to acute T8 compression fracture with minimal retropulsion - may require bracing such as TSLO, conservative treatment per ortho - anticoagulation - per orthopedics -discussed with orthopedics, recommend warfarin, goal INR about 1.8. This was also discussed with pharmacy. ASA resumed - Supratherapeutic INR -Unfortunately patient's INR is now 7.1. P.o. vitamin K given. Warfarin on hold. recheck H&H and INR ordered for this afternoon Current hemoglobin is 8.8, unchanged/stable from yesterday - Started on ancef preoperatively, pt was on outpatient Bactrim for UTI x 5 days UTI - U cultx positive for E.coli - will continue with Abx - cont. w/ ceftriaxone - Maintain Her catheter for now and remove as soon as possible - Pain control, bowel regimen ordered - PT/OT consults - CM consulted for therapy placement afterwards since currently in [facility] Acute blood loss anemia, post-operative, expected Hgb on admission between 10 and 12 Post op - Hgb down to 8-9 Hgb has been stable from previous day, no need for blood transfusion STEPHANIE - Cr up at 2.7 - likely from poor oral intake, blood loss / surgery, etc. - ordered IVF but pt lost IV access yesterday - now IV access gained - encouraged PO intake - has poor appetite but was able to take some, now w/ nausea - monitor I/Os, and monitor BMP - Nephrology also consulted and discussed w/Dr. Rios - orderded for the pt to be transferred to telemetry (4) PAF (paroxysmal atrial fibrillation): - Currently rate controlled - not on blood thinner as outpt due to fall risk, now on warfarin d/t s/p hip surgery - Continue amiodarone and metoprolol for rate control (5) (HFpEF) heart failure with preserved ejection fraction: -History of such, CT w/ bilateral pleural effusions: moderate left and small right, appears similar to previous - continued lasix, spironolactone as BP allows - now on hold d/t STEPHANIE - referred further to nephrology - IV lasix ordered, spironolactone on hold - cardiology consulted for pre-op eval - however pt taken to OR prior to be seen by cardiology - monitor I/O closely (6) Asthma-COPD overlap syndrome: - continue prn inhalers - currently on RA Total Time Total Time Spent Total Time Spent (In Minutes): 40 Discharge Plan Discharge Items Patient Disposition: Discharge Diagnosis: R hip fracture s/p surgical repair STEPHANIE, hyperkalemia UTI Supratherapeutic INR Other Date/Time: 04/16/22 19:07
[2022-04-16] MEDS ORDERED: AMIODARONE HCL INJ 50 MG/ML 3 ML VIAL IV ONE (20:19)
[2022-04-16] MEDS ORDERED: ATROPINE SULFATE 0.1 MG/ML 10ML SYR IV ONE (20:19)
[2022-04-16] MEDS ORDERED: SODIUM CHLORIDE 0.9% 10ML FLUSH IV ONE (20:19)
[2022-04-16] MEDS ORDERED: SODIUM BICARB 8.4% INJ 50 MEQ/50 ML SYR IV ONE (20:19)
[2022-04-16] MEDS ORDERED: DEXTROSE 5% 100 ML BAG IV ONE (20:19)
[2022-04-16] MEDS ORDERED: DEXTROSE 50% 50 ML SYRINGE IV ONE (20:19)
[2022-04-16] MEDS ORDERED: CALCIUM CHLORIDE 10% 10 ML SYR IV ONE (20:19)
[2022-04-16] MEDS ORDERED: INSULIN ASPART PER UNIT SC SCH (21:00)
--- NOTE | 2022-04-17 14:06 | Electrocardiogram Report ---
Test Reason : Blood Pressure : / mmHG Vent. Rate : 021 BPM Atrial Rate : 021 BPM P-R Int : 000 ms QRS Dur : 162 ms QT Int : 638 ms P-R-T Axes : 000 098 070 degrees QTc Int : 376 ms Less than 4 QRS complexes detected, no interpretation possible Ventricular escape rhythm without obvious atrial activity When compared with ECG of 12-APR-2022 12:22, Significant changes have occurred Confirmed by Terry Terrazas ([id number]) on 04/17/2022 2:06:22 PM Referred By: REFERRED SELF Confirmed By:Terry Terrazas
== END 2022-04-16 20:20 | disposition expired | DRG 522 ==
LOC: ED 12:20 → SUATTDRO 15:24 → EDINP 15:24 → 2W 19:37 → 3W 04-14 16:29
DX: I48.0 Paroxysmal atrial fibrillation; Y93.01 Activity, walking, marching and hiking; N17.9 Acute kidney failure, unspecified; I50.30 Unspecified diastolic (congestive) heart failure; R79.1 Abnormal coagulation profile; S22.060A Wedge compression fracture of T7-T8 vertebra, initial encounter for closed fracture; D62 Acute posthemorrhagic anemia; E87.5 Hyperkalemia; Z91.030 Bee allergy status; S32.511A Fracture of superior rim of right pubis, initial encounter for closed fracture; Z79.82 Long term (current) use of aspirin; N39.0 Urinary tract infection, site not specified; Z87.440 Personal history of urinary (tract) infections; E87.1 Hypo-osmolality and hyponatremia; W18.30XA Fall on same level, unspecified, initial encounter; Z91.81 History of falling; Z79.899 Other long term (current) drug therapy; S32.110A Nondisplaced Zone I fracture of sacrum, initial encounter for closed fracture; Y92.129 Unspecified place in nursing home as the place of occurrence of the external cause; Y99.8 Other external cause status; M80.051A Age-related osteoporosis with current pathological fracture, right femur, initial encounter for fracture; Z66 Do not resuscitate; S32.591A Other specified fracture of right pubis, initial encounter for closed fracture; G31.1 Senile degeneration of brain, not elsewhere classified; S72.011A Unspecified intracapsular fracture of right femur, initial encounter for closed fracture; J44.9 Chronic obstructive pulmonary disease, unspecified; M62.89 Other specified disorders of muscle; R41.0 Disorientation, unspecified; Z51.5 Encounter for palliative care; B96.20 Unspecified Escherichia coli [E. coli] as the cause of diseases classified elsewhere